=== PATIENT | female | born 1960 | race Caucasian/White ===

== ENCOUNTER → 2017-09-15 11:44 | Outpatient (CLI) | payer OTHER, SELFPAY ==
--- NOTE | 2017-09-15 11:49 | RAD_ITS ---
STUDY: X-RAY - RIGHT KNEE REASON FOR EXAM: Female, 56 years old. Psoriatic arthropathy TECHNIQUE: 4 weightbearing view(s) of the knee. COMPARISON: None. FINDINGS: Normal visualized distal femur. Normal visualized proximal tibia and fibula. Normal proximal tibiofibular articulation. Superior patellar osteophyte. Normal medial femorotibial compartment. Normal lateral femorotibial compartment. Normal patellofemoral articulation. There is a soft tissue prominence in the suprapatellar region suggesting a small volume joint effusion. The soft tissue structures are unremarkable. RAD/Knee 4 or More Views IMPRESSION: Degenerative arthrosis. Small suprapatellar joint effusion. No fracture or dislocation. Electronically Signed: Jason Ramirez DO at 23:23 EST , Service support ,
--- NOTE | 2017-09-15 11:49 | RAD_ITS ---
STUDY: X-RAY - LEFT KNEE REASON FOR EXAM: Female, 56 years old. Psoriatic arthropathy TECHNIQUE: 4 view(s) of the knee. COMPARISON: None. FINDINGS: Normal visualized distal femur. Normal visualized proximal tibia and fibula. Normal proximal tibiofibular articulation. Superior patellar osteophyte. There is mild degenerative arthrosis of the medial femorotibial compartment. There is mild degenerative arthrosis of the lateral femorotibial compartment. Normal patellofemoral articulation. The soft tissue structures are unremarkable. RAD/Knee 4 or More Views IMPRESSION: Degenerative arthrosis. No fracture or dislocation. Electronically Signed: Jason Ramirez DO at 23:23 EST , Service support ,
[2017-09-15 14:14] LABS: Absolute Lymphocyte Count 2.59 X10^3/ul (0.83-4.51); Basophil# 0.03 X10^3/uL; Basophil% 0.3 % (0-1); Eosinophil# 0.08 X10^3/uL; Eosinophils% 0.8 % (0-5); Hematocrit 39.8 % (37-47); Hemoglobin 12.3 g/dl (12.0-15.0); Lymphocyte # 2.59 X10^3/ul (4.0); Lymphocyte % 24.8 % (19-41); Mean Corp Hgb Conc 30.9 g/gl (32-36); Mean Corpuscular Hgb 27.1 pg (27.0-32.0); Mean Corpuscular Volume 87.7 fL (81-99); Mean Platelet Vol. 9.1 fl (6.2-12.0); Monocyte# 0.69 X10^3/uL; Monocyte% 6.6 % (0-10); Neutrophil # 7.04 X10^3/uL (2.7-7.7); Neutrophil % 67.3 % (47-70); Platelet Count 405 K/mm3 (150-450); Red Blood Count 4.54 M/mm3 (4.2-5.4); White Blood Count 10.5 K/mm3 (4.4-11.0)
[2017-09-15 14:20] LABS: POSITIVE COUNT NO; POSITIVE DIFFERENTIAL NO; POSITIVE MORPHOLOGY NO
[2017-09-15 14:34] LABS: ALB/GLOB Ratio 0.6 RATIO (0.9-2.4); AST(SGOT) 14 U/L (15-37); Alanine Aminotransfer ALT/SGPT 16 U/L (13-56); Albumin, Serum 3.4 g/dL (3.2-5.0); Alkaline Phosphatase 83 U/L (45-117); Anion Gap 9 (5-15); BUN 13 mg/dL (7-18); BUN/Creat Ratio 11.5 RATIO (10-20); Calcium,Total 9.3 mg/dL (8.5-10.1); Chloride 100 mmol/L (98-107); Creatinine, Serum 1.13 mg/dL (0.55-1.02); EST Glomerular Filtration Rate 53 mL/min (>60); Est Glom Filt Rate - Afr Amer 64 mL/min (>60); Globulin 5.6 g/dL (2.2-4.2); Glucose 142 mg/dL (74-106); Sodium Level 135 mmol/L (136-145)
== END ==
PROVIDERS: Family Provider Internal Medicine; PCP Internal Medicine; Visit Provider Internal Medicine Rheumatology
DX: L40.59 Other psoriatic arthropathy (principal); L40.9 Psoriasis, unspecified; K76.0 Fatty (change of) liver, not elsewhere classified; M50.30 Other cervical disc degeneration, unspecified cervical region; E11.9 Type 2 diabetes mellitus without complications; G43.909 Migraine, unspecified, not intractable, without status migrainosus; Z79.899 Other long term (current) drug therapy
CPT/HCPCS: 36415; 73564; 80053; 85025

== ENCOUNTER → 2017-09-25 12:39 | Outpatient (CLI) | payer OTHER, SELFPAY ==
[2017-09-25 12:46] LABS: Pathologist Comment May follow
[2017-09-25 13:07] LABS: RBC /Synovial Fluid 0.002 10^6/uL (0); Synovial Fld Mononuclear WBC % 35.6 %; Synovial Fld Polynuclear WBC # 8.142 10^3/ul; Synovial Fld Polynuclear WBC % 64.4 %
[2017-09-25 14:20] LABS: CRYSTALS, BODY FLUID CALCIUM PYROPHOS; Lymph 12 %; Monocyte /Synovial Fluid 3 %; Neutrophil 85 % (0-25)
[2017-09-25 14:21] LABS: AUTO B FLUID DILUENT BKGD CT WBC <0.1 RBC <0.01 (W<.1,R<.01); Source / Synovial Fluid R KNEE; Source- Body Fluid SYNOVIAL
[2017-09-25 14:22] LABS: Appearance /Synovial Fluid Cloudy (CLEAR); Body Fluid QC Type(s) BF1Q,BF2Q; Color / Synovial Fluid Yellow (Pale Yellow)
[2017-09-26 10:15] LABS: Pathologist Review Reviewed
== END ==
PROVIDERS: Family Provider Internal Medicine; PCP Internal Medicine; Visit Provider Internal Medicine Rheumatology
DX: L40.59 Other psoriatic arthropathy (principal); L40.9 Psoriasis, unspecified; M25.561 Pain in right knee; K46.0 Unspecified abdominal hernia with obstruction, without gangrene; M50.30 Other cervical disc degeneration, unspecified cervical region; E11.9 Type 2 diabetes mellitus without complications; G43.909 Migraine, unspecified, not intractable, without status migrainosus; Z79.899 Other long term (current) drug therapy
CPT/HCPCS: 87070; 87075; 87205; 89050; 89051; 89060

== ENCOUNTER → 2017-11-28 14:19 | Outpatient (CLI) | payer OTHER, SELFPAY ==
[2017-11-28 15:38] LABS: Absolute Lymphocyte Count 2.83 X10^3/ul (0.83-4.51); Absolute Neutrophil Count 3.3 X10^3/uL (2.0-7.7); Basophil# 0.03 X10^3/uL; Basophil% 0.4 % (0-1); Eosinophils% 1.4 % (0-5); Hematocrit 39.3 % (37-47); Hemoglobin 12.6 g/dl (12.0-15.0); Lymphocyte # 2.83 X10^3/ul (4.0); Mean Corp Hgb Conc 32.1 g/gl (32-36); Mean Corpuscular Hgb 28.7 pg (27.0-32.0); Mean Corpuscular Volume 89.5 fL (81-99); Mean Platelet Vol. 9.4 fl (6.2-12.0); Monocyte% 8.7 % (0-10); Neutrophil # 3.32 X10^3/uL (2.7-7.7); Neutrophil % 48.2 % (47-70); Platelet Count 291 K/mm3 (150-450); RBC Distribution Width CV 16.2 % (11.6-14.6); RBC Distribution Width SD 52.2 fl (35.1-43.9); Red Blood Count 4.39 M/mm3 (4.2-5.4); White Blood Count 6.9 K/mm3 (4.4-11.0)
[2017-11-28 15:51] LABS: POSITIVE COUNT NO; POSITIVE DIFFERENTIAL NO; POSITIVE MORPHOLOGY NO
[2017-11-28 15:54] LABS: ALB/GLOB Ratio 0.8 RATIO (0.9-2.4); AST(SGOT) 18 U/L (15-37); Alanine Aminotransfer ALT/SGPT 26 U/L (13-56); Albumin, Serum 3.5 g/dL (3.2-5.0); Alkaline Phosphatase 61 U/L (45-117); Anion Gap 9 (5-15); BUN 14 mg/dL (7-18); BUN/Creat Ratio 12.6 RATIO (10-20); Calcium,Total 9.1 mg/dL (8.5-10.1); Chloride 102 mmol/L (98-107); Creatinine, Serum 1.11 mg/dL (0.55-1.02); EST Glomerular Filtration Rate 54 mL/min (>60); Est Glom Filt Rate - Afr Amer 65 mL/min (>60); Globulin 4.4 g/dL (2.2-4.2); Glucose 263 mg/dL (74-106); Potassium 3.7 mmol/L (3.5-5.1); Protein, Total 7.9 g/dL (6.4-8.2); Sodium Level 140 mmol/L (136-145)
== END ==
PROVIDERS: Family Provider Internal Medicine; PCP Internal Medicine; Visit Provider Internal Medicine Rheumatology
DX: L40.59 Other psoriatic arthropathy (principal); L40.9 Psoriasis, unspecified; K76.0 Fatty (change of) liver, not elsewhere classified; M50.30 Other cervical disc degeneration, unspecified cervical region; E11.9 Type 2 diabetes mellitus without complications; G43.909 Migraine, unspecified, not intractable, without status migrainosus; Z79.899 Other long term (current) drug therapy
CPT/HCPCS: 36415; 80053; 85025

== ENCOUNTER 2018-02-21 17:52 | Emergency (ER) | payer OTHER, SELFPAY ==
[2018-02-21 17:52] VITALS: BP 192/116; PULSE 88; RESP 16; TEMP 37; O2SAT 99; BMI 29.0
--- NOTE | 2018-02-21 18:20 | CT_ITS ---
STUDY: CT BRAIN WITHOUT CONTRAST REASON FOR EXAM: Female, 57 years old. Headache. Hypertension. RADIATION DOSAGE (If Supplied By Facility): CTDIvol = ( 44.99 ) mGy, DLP = ( 779.24 ) mGycm TECHNIQUE: Transaxial CT imaging of the brain was performed without administration of intravenous contrast material. Individualized dose optimization techniques were used for this CT. COMPARISON: None. FINDINGS: There is no acute bleed or infarct. There are normal white matter tracts. The ventricles are normal in configuration. There is no hydrocephalus. The visualized paranasal sinuses are clear. The mastoid air cells are well aerated. There is no skull fracture. CT/Brain/Head without Contrast IMPRESSION: No acute intracranial abnormality. Electronically Signed: Levi Castellon, at 20:42 EDT Tel , Service support ,
[2018-02-21 18:21] LABS: Bedside Glucose 203 mg/dL (70-110)
--- NOTE | 2018-02-21 18:22 | ED.VISSUMM ---
- ER Visit Summary Date of Service: 02/21/18 Chief Complaint: Headache History of Present Illness: The patient is a 57 F history of prior migraine headaches also diet-controlled Beatties. Patient also has psoriatic arthritis. She is on no blood thinners. States she started getting a headache gradual onset today at noon progressively got worse around 3:00. Associated with nausea no vomiting. Denies any fever. No neck pain. No history of any recent falls or head trauma. She is on no blood thinners. States she gets migraines in the past has not had them very often at all in the last several years. States his headache is different. Is primarily frontal in her forehead. He does have light sensitivity. No visual change. No neurological symptoms. No speech change. No numbness or weakness either upper or lower extremities. She has never had any family history or personal history of intracranial bleeds or brain surgery. She has had prior cervical disc surgery. Physical Examination: Well-appearing middle-age female. Initial blood pressure 192/116. Afebrile. Pulse ox 9 9% on room air. She is seated in a darkened room. She is in no distress. H EENT exam atraumatic. Pupils round reactive light. No facial droop. Normal speech. No signs of trauma. Neck nontender no meningismus. Trachea midline. Able to touch chin to chest. Lungs clear to auscultation bilaterally. Heart regular rate and rhythm no murmur. Abdomen soft nontender. She is moving all 4 extremities. They are neurovascularly intact. Bilateral 5 out of 5 applications architect strength. Bilateral dorsi plantar flexion. Fingertip to nose heel oneill all within normal limits. Normal sensation. Back exam unremarkable. Neurologic exam normal. NIH is 0. No focal motor or sensory deficits. Test Results: CAT scan of the brain without contrast Emergency Department Course and Treatment: Patient treated with IV Toradol and Zofran. Treatment Plan: [] Disposition: [] Impression: Acute cephalgia Acute hypertension This note was generated with [employer] dictation software. It may contain incorrect words, spelling, and punctuation that were not noted in review of the chart prior to signing ED Disposition - Plan for ED Patient: Chief Complaint: Headache Referrals: Chanel Duarte DO [Primary Care Provider] -
[2018-02-21 18:53] LABS: Anion Gap 9 (5-15); BUN 15 mg/dL (7-18); BUN/Creat Ratio 13.9 RATIO (10-20); Calcium,Total 9.3 mg/dL (8.5-10.1); Chloride 104 mmol/L (98-107); Creatinine, Serum 1.08 mg/dL (0.55-1.02); EST Glomerular Filtration Rate 55 mL/min (>60); Est Glom Filt Rate - Afr Amer 67 mL/min (>60); Estimated Creatinine Clearance 55.22 ml/min; Glucose 203 mg/dL (74-106); Potassium 3.9 mmol/L (3.5-5.1); Sodium Level 142 mmol/L (136-145)
[2018-02-21] MEDS: Ketorolac 30 MG/ML Syringe IV (19:00)
[2018-02-21 19:14] VITALS: BP 178/107; PULSE 85; RESP 16; O2SAT 97
[2018-02-21] MEDS: Ondansetron 4 MG/2 ML Vial IV (19:21)
--- NOTE | 2018-02-21 19:44 | ED.DEP ---
ED Disposition - Plan for ED Patient: Disposition: Home or Assisted Living Chief Complaint: Headache Instructions: ED Cephalgia Unspecified Referrals: Chanel Duarte DO [Primary Care Provider] - 1-2 Weeks Additional Instructions: Log your blood pressures twice daily. Follow-up with Dr. Flores your primary care physician in the next 1-2 weeks and she can go over your blood pressure readings with you and decide if you need to be started on any occasion or not. Tylenol for headaches. Return if feeling a lot worse. Developed fever. Or worsening headache.
[2018-02-21 20:38] VITALS: BP 144/94; PULSE 84; RESP 18; O2SAT 97
[2018-02-21 20:53] VITALS: BP 144/94; PULSE 84; RESP 18; O2SAT 97
== END 2018-02-21 20:53 | disposition home or self-care (01) ==
PROVIDERS: Emergency Provider Emergency Medicine; Family Provider Internal Medicine; PCP Internal Medicine
DX: R51 Headache (principal); I10 Essential (primary) hypertension; L40.50 Arthropathic psoriasis, unspecified; Z79.891 Long term (current) use of opiate analgesic; Z79.899 Other long term (current) drug therapy
CPT/HCPCS: 70450; 80048; 82962; 96374; 96375; 99285; J7030; A4216

== ENCOUNTER → 2018-04-17 11:54 | Outpatient (CLI) | payer OTHER, SELFPAY ==
[2018-04-17 14:29] LABS: Absolute Lymphocyte Count 2.63 X10^3/ul (0.83-4.51); Absolute Neutrophil Count 3.1 X10^3/uL (2.0-7.7); Basophil# 0.02 X10^3/uL; Basophil% 0.3 % (0-1); Eosinophil# 0.18 X10^3/uL; Eosinophils% 2.8 % (0-5); Hematocrit 36.9 % (37-47); Lymphocyte # 2.63 X10^3/ul (4.0); Lymphocyte % 40.8 % (19-41); Mean Corp Hgb Conc 32.5 g/gl (32-36); Mean Corpuscular Volume 92.3 fL (81-99); Mean Platelet Vol. 9.7 fl (6.2-12.0); Monocyte% 7.8 % (0-10); Neutrophil # 3.11 X10^3/uL (2.7-7.7); Neutrophil % 48.1 % (47-70); POSITIVE COUNT NO; POSITIVE DIFFERENTIAL NO; POSITIVE MORPHOLOGY NO; Platelet Count 278 K/mm3 (150-450); RBC Distribution Width CV 12.6 % (11.6-14.6); RBC Distribution Width SD 40.9 fl (35.1-43.9); White Blood Count 6.5 K/mm3 (4.4-11.0)
[2018-04-17 14:45] LABS: Prothrombin Time (Protime)PT. 13.5 SECONDS (11.7-14.9)
[2018-04-17 14:47] LABS: ALB/GLOB Ratio 0.8 RATIO (0.9-2.4); AST(SGOT) 33 U/L (15-37); Alanine Aminotransfer ALT/SGPT 37 U/L (13-56); Albumin, Serum 3.5 g/dL (3.2-5.0); Alkaline Phosphatase 64 U/L (45-117); Anion Gap 9 (5-15); BUN 12 mg/dL (7-18); BUN/Creat Ratio 10.5 RATIO (10-20); Chloride 105 mmol/L (98-107); Creatinine, Serum 1.14 mg/dL (0.55-1.02); EST Glomerular Filtration Rate 52 mL/min (>60); Est Glom Filt Rate - Afr Amer 63 mL/min (>60); Globulin 4.3 g/dL (2.2-4.2); Glucose 153 mg/dL (74-106); Potassium 3.9 mmol/L (3.5-5.1); Protein, Total 7.8 g/dL (6.4-8.2); Sodium Level 141 mmol/L (136-145)
== END ==
PROVIDERS: Family Provider Internal Medicine; PCP Internal Medicine; Visit Provider Internal Medicine Rheumatology
DX: L40.59 Other psoriatic arthropathy (principal); L40.9 Psoriasis, unspecified; M25.561 Pain in right knee; K76.0 Fatty (change of) liver, not elsewhere classified; M50.30 Other cervical disc degeneration, unspecified cervical region; E11.9 Type 2 diabetes mellitus without complications; G43.909 Migraine, unspecified, not intractable, without status migrainosus; H11.31 Conjunctival hemorrhage, right eye; Z79.899 Other long term (current) drug therapy
CPT/HCPCS: 36415; 80053; 85025; 85610

== ENCOUNTER 2018-04-22 00:47 | Emergency (ER) | payer OTHER, SELFPAY ==
[2018-04-22 00:47] VITALS: BP 133/89; PULSE 106; RESP 16; TEMP 36.4; O2SAT 95; BMI 29.0
--- NOTE | 2018-04-22 01:03 | CT_ITS ---
STUDY: CT ABDOMEN AND PELVIS WITH CONTRAST REASON FOR EXAM: Female, 57 years old. Nausea vomiting and diarrhea RADIATION DOSAGE (If Supplied By Facility): CTDIvol = ( 19.09 ) mGy, DLP = ( 1119.92 ) mGycm TECHNIQUE: Transaxial images were obtained from the dome of the diaphragm to the symphysis pubis without oral contrast. 100ML ml of Isovue 300 contrast was administered. Sagittal and coronal images were reconstructed. Individualized dose optimization techniques were used for this CT. COMPARISON: None. FINDINGS: The lung bases are clear. The liver is normal. No dilated intrahepatic biliary radicles. A normal gallbladder is not seen. A small 1.4 cm cystic structures in the gallbladder fossa. The spleen is normal. The pancreas is normal. Both adrenals are normal. The kidneys are normal with no masses, calculi or hydronephrosis The stomach is normal. There is no bowel distention, acute appendicitis or diverticulitis. No constricting lesions are seen in large bowel. The abdominal wall is intact with no hernias. There is no ascites or any free intraperitoneal air. No indication of epiploic appendagitis The vascular structures in the retroperitoneum are normal. There is no retrocrural, retroperitoneal or mesenteric adenopathy. The bones and joints are normal. The urinary bladder is normal.--The uterus is normal.. There is no inguinal or pelvic adenopathy. There is no inguinal hernia. . CT/Abdomen/Pelvis W IV Cont ONLY IMPRESSION: No acute findings in the abdomen or pelvis. Specifically there is no acute appendicitis or diverticulitis Electronically Signed: David Giang, at 1:57 EDT Tel , Service support ,
[2018-04-22] MEDS: Morphine 4 MG/ML Syringe IV (01:07)
[2018-04-22] MEDS: 0.9% Normal Saline 1,000 ML 1000 ML IV (01:07)
[2018-04-22] MEDS: Ondansetron 4 MG/2 ML Vial IV (01:08)
[2018-04-22 01:15] LABS: Absolute Lymphocyte Count 2.33 X10^3/ul (0.83-4.51); Absolute Neutrophil Count 5.9 X10^3/uL (2.0-7.7); Basophil# 0.01 X10^3/uL; Basophil% 0.1 % (0-1); Eosinophil# 0.24 X10^3/uL; Eosinophils% 2.6 % (0-5); Hematocrit 45.1 % (37-47); Hemoglobin 15.3 g/dl (12.0-15.0); Lymphocyte # 2.33 X10^3/ul (4.0); Lymphocyte % 25.1 % (19-41); Mean Corp Hgb Conc 33.9 g/gl (32-36); Mean Corpuscular Hgb 30.9 pg (27.0-32.0); Mean Corpuscular Volume 91.1 fL (81-99); Mean Platelet Vol. 9.5 fl (6.2-12.0); Monocyte# 0.83 X10^3/uL; Monocyte% 8.9 % (0-10); Neutrophil # 5.87 X10^3/uL (2.7-7.7); Neutrophil % 63.1 % (47-70); POSITIVE COUNT NO; POSITIVE DIFFERENTIAL NO; POSITIVE MORPHOLOGY NO; Platelet Count 312 K/mm3 (150-450); RBC Distribution Width SD 42.8 fl (35.1-43.9); Red Blood Count 4.95 M/mm3 (4.2-5.4); White Blood Count 9.3 K/mm3 (4.4-11.0)
[2018-04-22 01:29] LABS: ALB/GLOB Ratio 0.8 RATIO (0.9-2.4); AST(SGOT) 24 U/L (15-37); Alanine Aminotransfer ALT/SGPT 29 U/L (13-56); Albumin, Serum 3.5 g/dL (3.2-5.0); Alkaline Phosphatase 73 U/L (45-117); Anion Gap 10 (5-15); BUN 15 mg/dL (7-18); BUN/Creat Ratio 11.8 RATIO (10-20); Calcium,Total 8.8 mg/dL (8.5-10.1); Chloride 104 mmol/L (98-107); Creatinine, Serum 1.27 mg/dL (0.55-1.02); EST Glomerular Filtration Rate 46 mL/min (>60); Est Glom Filt Rate - Afr Amer 56 mL/min (>60); Estimated Creatinine Clearance 46.95 ml/min; Globulin 4.6 g/dL (2.2-4.2); Glucose 214 mg/dL (74-106); Potassium 3.4 mmol/L (3.5-5.1); Protein, Total 8.1 g/dL (6.4-8.2); Sodium Level 138 mmol/L (136-145)
--- NOTE | 2018-04-22 01:36 | ED.VISSUMM ---
- ER Visit Summary Date of Service: 04/22/18 Chief Complaint: Nausea, vomiting, diarrhea History of Present Illness: The patient is a 57 F who is otherwise healthy presents to the emergency department nausea, vomiting, diarrhea. The patient symptoms began on Friday. States she had some diffuse abdominal cramping. She then had about 4 episodes of emesis. She states shortly after that, she began have loose watery diarrhea. There was no blood in the emesis or the diarrhea. She states symptoms seem to chery for about a day and then returned. States tonight, got markedly worse when she was having multiple bouts of loose watery diarrhea. Her did have C. difficile, but was 3 years ago. She denies any recent travel. She denies any recent antibiotic use. The patient does take Januvia for diabetes but is otherwise healthy. She has had prior appendectomy and cholecystectomy. Physical Examination: Vital signs reviewed General: Well-nourished, well-developed Head: Normocephalic, atraumatic Eyes: Pupils equal and reactive, extraocular muscles intact Neck, supple, no lymphadenopathy Heart: Regular rate and rhythm Respiratory: No distress, clear bilaterally Abdomen: Soft, mildly tender in the midepigastric area in the left upper quadrant without rebound or guarding, nondistended, no peritoneal signs Back: Nontender Extremities: Nontender, no edema, no cords Skin: Normal color no rash Neuro: Alert and oriented, no focal or lateralizing deficits Test Results: [] Emergency Department Course and Treatment: The patient presents with nausea, vomiting, diarrhea for the past 4 days. She has no history of C. difficile, but there was a prior history within her household. IV was established. She was treated with analgesics and antiemetics. She had total resolution of her pain but continued to have mild nausea. Nausea medication was redosed and she had marked improvement. Screening labs were obtained were unremarkable. I obtained a CT of her abdomen and pelvis with IV contrast. This also showed no evidence of acute intra-abdominal process. Patient was observed for 2 hours. We did obtain a C. difficile which is currently pending. Based on the fact that she has no colitis, no diarrhea here, and normal CT I do feel that C. difficile is less likely. However, given history I will prescribe oral vancomycin to the patient but told her not to fill this unless we call her and tell her that her C. difficile was positive. She will be started on antiemetics and antispasmodics. She will be discharged home return with any worsening symptoms. Treatment Plan: [] Disposition: Discharge Impression: Gastroenteritis This note was generated with [employer] dictation software. It may contain incorrect words, spelling, and punctuation that were not noted in review of the chart prior to signing ED Disposition - Plan for ED Patient: Disposition: Home or Assisted Living Chief Complaint: Nausea/Vomiting/Diarrhea Instructions: ED Gastroenteritis Viral Prescriptions: proMETHazine tablet [Phenergan] 25 mg PO Q6H PRN PRN #10 tab PRN Reason: Nausea Dicyclomine HCl [Bentyl] 20 mg PO TIDAC #20 cap Vancomcyin 125mg/5mL PO Liquid 125 mg PO Q6 #200 ml Referrals: Chanel Duarte DO [Primary Care Provider] -
[2018-04-22] MEDS: proMETHazine 25 MG/ML Syringe 12.5 MG IV (01:58)
[2018-04-22 02:47] VITALS: RESP 18
[2018-04-22] MEDS: Dicyclomine 10 MG Capsule 20 MG PO (03:17)
[2018-04-22] MEDS: Ondansetron ODT 4 MG Tablet 12 MG PO (03:18)
[2018-04-22 03:23] VITALS: BP 157/88; PULSE 94; RESP 17; O2SAT 96
== END 2018-04-22 03:24 | disposition home or self-care (01) ==
PROVIDERS: Emergency Provider Emergency Medicine; Family Provider Internal Medicine; PCP Internal Medicine
DX: K52.9 Noninfective gastroenteritis and colitis, unspecified (principal); E11.9 Type 2 diabetes mellitus without complications; I10 Essential (primary) hypertension; Z79.84 Long term (current) use of oral hypoglycemic drugs; Z79.899 Other long term (current) drug therapy
CPT/HCPCS: 74177; 80053; 85025; 87493; 87506; 96361; 96374; 96375; 99284; J7030; Q9967; A4216; J2405

== ENCOUNTER → 2018-09-01 09:35 | Outpatient (CLI) | payer OTHER, SELFPAY ==
--- NOTE | 2018-09-01 09:38 | BI_ITS ---
MAMMOGRAPHY - BILATERAL SCREENING REASON FOR EXAM: Female, 57 years old. Routine annual screening examination. PERTINENT HISTORY: Mother with breast cancer. TECHNIQUE: Digital bilateral breast emmanuel (3D mammographic acquisition) in the CC and MLO projections. 2-D mediolateral oblique (MLO) and craniocaudad (CC) views of both breasts were obtained. CAD: Full Field Digital Mammography with Computer Added Detection was performed. COMPARISON: Comparison is made with prior study dated July 28, 2017 and July 23, 2016 FINDINGS: Breast Composition: There are scattered areas of fibroglandular density. There are no dominant masses or suspicious calcifications. No other significant abnormalities are identified. There has been no significant change since the prior study. BI/SCREENING MAMM (CAD), BILAT IMPRESSION: Stable bilateral screening mammogram. Yearly follow-up mammogram recommended. (A) ASSESSMENT CATEGORY: BIRADS Category 1: Negative. A letter regarding these results will be sent to the patient by the facility within 30 days. Approximately 10% of breast cancers are not detected by mammography. A normal mammogram should not delay biopsy of a clinically suspicious abnormality. [id number] Electronically Signed: Jordy Masters MD at 11:17 EST Tel [phone], Service support ,
--- NOTE | 2018-09-01 09:38 | BD_ITS ---
STUDY: DUAL ENERGY X-RAY ABSORPTIOMETRY / DXA REASON FOR EXAM: Female, 57 years old. Early menopause. Loss of height. TECHNIQUE: Bone Mineral Density (BMD) measurements of lumbar spine and bilateral hips were obtained. COMPARISON: Comparison is made with prior study dated July 23, 2016. FINDINGS: Lumbar Spine (L1-L4): g/cm2 (1.234) / T-score (0.5) / Z-score (1.5) Findings are suggestive of normal bone density with a low fracture risk. Left Femur Total: g/cm2 (1.006) / T-score (0.0) / Z-score (0.8) Left Femoral Neck: g/cm2 (0.999) / T-score (-0.3) / Z-score (0.9) Right Femur Total: g/cm2 (0.935) / T-score (-0.6) / Z-score (0.3) Right Femoral Neck: g/cm2 (0.839) / T-score (-1.4) / Z-score (-0.3) The T-Scores on the most recent prior examination were: Lumbar Spine (L1-L4): There has been improvement of bone density since the previous examination. Left Femur Total: which represents an improvement of 2.4%. Right Femur Total: which represents an improvement of 1.6%. BD/Dexa Bone Density Study IMPRESSION: The patient is considered osteopenic as outlined below according to World [employer] Organization (WHO) criteria with a low fracture risk. There has been improvement of bone density since the previous examination. Reference Information: The T-score is the number of standard deviations above or below the standard which is normal for young adults at their peak bone mineral density. The World Health Organization (WHO) interprets the T-scores as follows: Above -1 Normal bone density Between -1 and -2.5 Osteopenia Equal to / or below -2.5 Osteoporosis As a practical clinical guideline, osteopenia may be graded as follows: Mild -1 through -1.5 Moderate -1.6 through -2.0 Severe -2.1 through -2.4 The Z-score is the number of standard deviations above or below age-matched controls. A Z-score of less than -1.5 would be considered abnormal. References: 1. NIH Osteoporosis and Related Bone Diseases http://www.osteo.org 2. International Society for Clinical Densitometry http://www.iscd.org 3. National Osteoporosis Foundation http://www.nof.org Electronically Signed: Jordy Masters MD at 11:22 EST Tel [phone], Service support ,
--- OUTSIDE RECORDS SUMMARY | 2018-11-03 10:50 | XMS RPT_ITS | Continuity of Care Document ---
:1960 Author Organization [facility] Address [facility] [address] Phone Care Team Providers Name Role Phone Chanel Varma DO Unavailable Alexis RDZ, Joey Gallegos Unavailable Physical Therapy, [facility] Unavailable Edin Cotter MD Unavailable Dr. Herve Plaza Unavailable JUANA Gomez Unavailable Unavailable Unavailable Unavailable Problems Name Dates Details Abdominal pain, acute, right upper quadrant (R10.11, 789.01) Status: Active ALLERGIC RHINITIS DUE TO OTHER ALLERGEN (J30.89, 477.8) Status: Active Appendectomy Comments: 1975 Status: Active BMI 27.0-27.9,adult (Z68.27, V85.23) Status: Active BMI 28.0-28.9,adult (Z68.28, V85.24) Status: Active BMI 29.0-29.9,adult (Z68.29, V85.25) Status: Active Breast cancer screening (Z12.39, V76.10) Status: Active Bronchitis (J40, 490) Status: Active Cervical radiculopathy at C7 (M54.12, 723.4) Status: Active Cervical radiculopathy at C8 (M54.12, 723.4) Comments: rev x-ray, failied nsaids and ultram and failed PT Status: Active Chronic pharyngitis (J31.2, 472.1) Comments: partly from chronic sinus drainage-- cont nasal spray - nad antistamine no decog Status: Active Cough (R05, 786.2) Status: Active Depression (F32.9, 311) Status: Active Diabetes mellitus type 2, uncontrolled, without complications (E11.65, 250.02) Comments: HAIC improving but still uncontrolled --7.0 (was 7.7)pt was holding off on more rx -- she chg her diet so we will see what next ones shows Status: Active Diabetes mellitus type II, controlled, with no complications (E11.9, 250.00) Status: Active Dysphagia (R13.10, 787.20) Status: Active Elevated serum globulin level (R77.1, 790.99) Status: Active Encounter for gynecological examination without abnormal finding (Z01.419, V72.31) Comments: 15n hpv neg adn no chg in sexual partner and no h/o of abn- pap Status: Active Encounter for screening mammogram for breast cancer (Renamed from Encounter for screening mammogram for malignant neoplasm of breast) (Z12.31, V76.12) Status: Active Epigastric Pain (R10.13, 789.06) Status: Active Fatty liver (K76.0, 571.8) Status: Active Flu-like symptoms (R68.89, 780.99) Status: Active Gastroenteritis (K52.9, 558.9) Status: Active GERD (gastroesophageal reflux disease) (K21.9, 530.81) Status: Active 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, 722.0) Comments: s/p surgery -- doing well Status: Active Hypercholesteremia (E78.00, 272.0) Comments: didnt tolerate crestor Status: Active Hypertension, essential, benign (I10, 401.1) Status: Active Immunocompromised (D84.9, 279.3) Status: Active Migraine (G43.909, 346.80) Status: Active Nausea (R11.0, 787.02) Comments: relived with antacid ever snice stomach flu --- gave samples of zypan to support digestion/acid to try Status: Active Need for prophylactic vaccination and inoculation against influenza (Z23, V04.81) Status: Active Nonsmoker (Z78.9, V49.89) Status: Active Non-traumatic subconjunctival hemorrhage of right eye (H11.31, 372.72) Status: Active Nutritional counseling (Z71.3, V65.3) Status: Active Osteopenia (M85.80, 733.90) Status: Active Other abnormal glucose (R73.09, 790.29) Status: Active Other noninflammatory disorders of ovary, fallopian tube, and broad ligament (Renamed from Other noninflammatory disorders of ovary, fallopian tube and broad ligament) (N83.8, 620.8) Status: Active Other specified viral infection, in conditions classified elsewhere and of unspecified site (B97.89, 079.89) Status: Active Pain in joint, multiple sites (M25.50, 719.49) Status: Active Papanicolaou smear of cervix with atypical squamous cells cannot exclude high grade squamous intraepithelial lesion (ASC-H) (Renamed from Abnormal Pap smear, can't excl hi gd sq intraepithelial lesion (ASC-H)) (R87.611, 795.02) Status: Active Pharyngitis, acute (J02.9, 462) Status: Active Pneumococcal vaccination given (Z23, V06.6) Status: Active Post-menopausal (Z78.0, V49.81) Comments: dexa up to date Status: Active Post-nasal drip (R09.82, 784.91) Comments: using antihistamine prn Status: Active Pregnancies () Comments: 0 Status: Active Psoriasis (L40.9, 696.1) Status: Active Psoriatic arthropathy (L40.50, 696.0) Status: Active Sinusitis, acute (J01.90, 461.9) Status: Active Unspecified Diagnosis Status: Active Unspecified Diagnosis Status: Active Unspecified Diagnosis Status: Active Unspecified Diagnosis Status: Active Upper respiratory infection (J06.9, 465.9) Status: Active Vitamin D deficiency, unspecified (E55.9, 268.9) Status: Active Voice disorder (R49.9, 784.40) Comments: damage from intubation? silent gerd? Status: Active Well woman exam (Z00.00, V70.0) Status: Active Wheezing (R06.2, 786.07) Status: Active Medications Name Dates Details Alendronate Sodium 70 MG Oral Tablet 1 (one) Tablet q weekly for 0 days Quantity: 12 {Tablet} Refills: 3 Ordered:04-Jun-2017 Spring Swartz CNP Start : 04-Jun-2017 Active Alendronate Sodium 70 MG Oral Tablet 1 (one) Tablet q weekly for 90 days Quantity: 3 {Tablet} Refills: 3 Ordered:04-Jun-2017 Spring Swartz CNP Start : 04-Jun-2017 Active Atenolol 25 MG Oral Tablet 1/2 (one) Tablet qd for 0 days Quantity: 30 {Tablet} Refills: 5 Ordered:29-Apr-2018 Marissa Gomez LPN Start : 29-Apr-2018 Active BD INSULIN SYRINGE ULTRAFINE, 29G X 1/21 ML (Miscellaneous) 1 Misc qd for 0 days Quantity: 1 {box(s)} Refills: 3 Ordered:14-Jun-2013 Marissa Gomez LPN Start : 14-Jun-2013 Active Cosentyx 300 Dose 150 MG/ML Subcutaneous Solution Prefilled Syringe 1 q mo (150 MG/ML) Active FreeStyle Lite Test In Vitro Strip 1 Strip TEST FBS Daily for 0 days Quantity: 100 {Strip} Refills: 6 Ordered:23-May-2016 Alena Varma DO, DO, Kathleen Start : 23-May-2016 Active Januvia 100 MG Oral Tablet 1 (one) Tablet qd for 0 days Quantity: 30 {Tablet} Refills: 3 Ordered:29-Apr-2018 Marissa Gomez LPN Start : 29-Apr-2018 Active MULTIVITAMIN (PO Tab) 1 QD for 0 days Refills: 0 Ordered:08-Jun-2009 Mil Calles NASONEX, 50MCG/ACT (Nasal Suspension) 2 (two) Suspension sprays each nostril daily for 0 days Quantity: 1 {Box} Refills: 3 Ordered:19-May-2014 Alena Varma DO, DO, Kathleen Start : 19-May-2014 Active Olux 0.05 % External Foam 1 (one) Foam qd prn per derm for 0 days Quantity: 1 {Each} Refills: 3 Ordered:02-Aug-2016 Alena Varma DO, DO, Kathleen Start : 02-Aug-2016 Active Ultram 50 MG Oral Tablet 1 tid (50 MG) Active ERROL-D 12 HOUR, 60-120MG (Oral Tablet Extended Release 12 Hour) 1 Tablet ER 12HR q12 hr for 0 days Quantity: 14 {Tablet_ER_12HR} Refills: 0 Ordered:21-Sep-2010 Marissa Gomez LPN Start : 14-Aug-2010 End : 21-Sep-2010 Inactive Biaxin 500 MG Oral Tablet 1 Tablet bid for 0 days Quantity: 20 {Tablet} Refills: 0 Ordered:23-Sep-2016 Marissa Gomez LPN Start : 06-Sep-2016 End : 23-Sep-2016 Inactive Biaxin XL Pac 500 MG Oral Tablet Extended Release 24 Hour 2 (two) Tablet ER 24HR Tablet ER 24HR daily for 10 days Quantity: 20 {Tablet} Refills: 0 Ordered:01-Nov-2016 Jessa Mcintyre LPN Start : 01-Nov-2016 End : 11-Nov-2016 Inactive Blood Glucose Test In Vitro Strip 1 (one) Strip bid for 0 days Quantity: 100 {Strip} Refills: 3 Ordered:20-May-2016 Rosalinda Rose LPN Start : 16-Oct-2015 End : 20-May-2016 Inactive Comments:ONE TOUCH ULTRA Cheratussin AC 100-10 MG/5ML Oral Syrup 5 Milliliter qhs prn for 0 days Quantity: 120 {Milliliter} Refills: 0 Ordered:25-Jun-2017 Marissa Gomez LPN Start : 04-Jun-2017 End : 25-Jun-2017 Inactive CHOLECALCIFEROL, 1000UNIT (Oral Capsule) Capsule for 0 days Refills: 0 Ordered:18-Apr-2009 Veronika Calles Start : 18-Apr-2009 End : 08-Jun-2009 Inactive CLODERM, 0.1% (External Cream) 2 daily (0.1 %) Inactive DEXILANT, 60MG (Oral Capsule Delayed Release) 1 (one) Capsule DR Capsule DR qd for 0 days Quantity: 30 {Capsule} Refills: 1 Ordered:16-Oct-2015 Marissa Gomez LPN Start : 27-Mar-2015 End : 16-Oct-2015 Inactive DIOVAN HCT, 160-25MG (Oral Tablet) 1/2 Tablet qd for 0 days Quantity: 30 {Tablet} Refills: 6 Ordered:23-Dec-2014 Marissa Gomez LPN Start : 13-Jun-2014 End : 23-Dec-2014 Inactive Comments:new dose FLONASE, 50MCG/ACT (Nasal Suspension) 2 (two) Puff(s) daily for 0 days Quantity: 1 {Suspension} Refills: 2 Ordered:31-Dec-2013 Marissa Gomez LPN Start : 12-Jan-2013 End : 31-Dec-2013 Inactive FOLIC ACID, 1MG (Oral Tablet) 1 tab Weekly for 0 days Refills: 0 Ordered:24-Jul-2011 Marissa Gomez LPN End : 24-Jul-2011 Inactive HUMIRA PEN, 40MG/0.8ML (Subcutaneous Kit) 1 qo week (40 MG/0.8ML) Inactive LEVAQUIN, 500MG (Oral Tablet) 1 Tablet qd for 0 days Quantity: 10 {Tablet} Refills: 0 Ordered:24-Jul-2011 Marissa Gomez LPN Start : 21-Sep-2010 End : 24-Jul-2011 Inactive METHOTREXATE, 2.5MG (Oral Tablet) 4 tabs Once a week for 0 days Refills: 0 Ordered:24-Jul-2011 Marissa Gomez LPN End : 24-Jul-2011 Inactive MOBIC, 15MG (Oral Tablet) 1 Tablet prn for 30 days Quantity: 1 {Tablet} Refills: 0 Ordered:18-May-2012 Alena Varma DO, DO, Kathleen Start : 18-May-2012 End : 17-Jun-2012 Inactive MYCELEX, 10MG (Mouth/Throat Betzaida) 1 (one) Betzaida 5 times daily for 10 days Quantity: 50 {Betzaida} Refills: 0 Ordered:28-Dec-2008 Veronika Calles Start : 28-Dec-2008 End : 09-Jan-2009 Inactive NUCYNTA ER, 50MG (Oral Tablet Extended Release 12 Hour) 1 (one) Tablet ER 12HR bid prn for 0 days Quantity: 30 {Tablet} Refills: 0 Ordered:08-Dec-2015 Marissa Gomez LPN Start : 06-Nov-2015 End : 08-Dec-2015 Inactive Comments:thirty OMEPRAZOLE, 40MG (Oral Capsule Delayed Release) 1 (one) Capsule DR Capsule DR qd for 30 days Quantity: 30 {Capsule} Refills: 3 Ordered:20-Jul-2014 Jessa Mcintyre LPN Start : 31-Dec-2013 End : 20-Jul-2014 Inactive PredniSONE 10 MG Oral Tablet 1 (one) Tablet 1bid x3 days, 1 daily x 3 days, 1/2 daily x 3 days for 0 days Quantity: 12 {Tablet} Refills: 0 Ordered:25-Jun-2017 Marissa Gomez LPN Start : 04-Jun-2017 End : 25-Jun-2017 Inactive Comments:with food PREDNISONE, 20MG (Oral Tablet) tad Tablet uad for 0 days Refills: 0 Ordered:20-Feb-2012 Marissa Gomez LPN Start : 30-Oct-2011 End : 20-Feb-2012 Inactive Comments:1 tab bid for 3 days then 1 tab daily for 4 days then 1/2 tab daily for 4 days Promethazine HCl 25 MG Oral Tablet 1 (one) Tablet q6hr prn nausea for 0 days Quantity: 30 {Tablet} Refills: 0 Ordered:20-May-2016 Rosalinda Rose LPN Start : 15-Mar-2016 End : 20-May-2016 Inactive PROVENTIL HFA, 108 (90 Base)MCG/ACT (Inhalation Aerosol Solution) 2 (two) Puff(s) bid prn for 0 days Quantity: 1 {Aerosol_Soln} Refills: 0 Ordered:14-Aug-2010 Shakila Gonzalez LPN Start : 14-May-2010 End : 14-Aug-2010 Inactive Talclonex Scalp at night prn Inactive Comments:prescribed by derm Zithromax Z-Devendra 250 MG Oral Tablet 1 Tablet uad for 0 days Quantity: 1 {Package} Refills: 0 Ordered:25-Jun-2017 Marissa Gomez LPN Start : 04-Jun-2017 End : 25-Jun-2017 Inactive Crestor 10 MG Oral Tablet 1 (one) Tablet qd for 30 days Quantity: 30 {Tablet} Refills: 3 Ordered:14-Jan-2018 Radha Partida Start : 15-Oct-2017 End : 14-Jan-2018 Discontinued Comments:do labs in 2 mo Enbrel 50 MG/ML Subcutaneous Solution Prefilled Syringe 1 q 2 weeks (50 MG/ML) End : 06-Nov-2016 Discontinued ERGOCALCIFEROL, 13712TKBG (Oral Capsule) 1 (one) Capsule twice weekly for 0 days Quantity: 8 {Capsule} Refills: 2 Ordered:18-Apr-2009 Spring Swartz CNP Start : 18-Apr-2009 End : 18-Apr-2009 Discontinued Glucose Control In Vitro Solution 1 (one) Solution uad for 0 days Quantity: 1 {Solution} Refills: 3 Ordered:01-Nov-2016 Jessa Mcintyre LPN Start : 14-Aug-2011 End : 01-Nov-2016 Discontinued Comments:ONE TOUCH ULTRA METANX, 2.8-25-2MG (Oral Tablet) 1 (one) Tablet daily for 0 days Quantity: 90 {Tablet} Refills: 2 Ordered:18-Jan-2010 Renée Lim RN Start : 18-Jan-2010 End : 18-Jan-2010 Discontinued METFORMIN HCL, 500MG (Oral Tablet) 1 (one) Tablet qd for 0 days Quantity: 60 {Tablet} Refills: 3 Ordered:16-Sep-2013 Alena Varma DO, DO, Kathleen Start : 16-Sep-2013 End : 16-Sep-2013 Discontinued Comments:nausea MULTIVITAMIN (Oral Liquid) for 0 days Refills: 0 Ordered:04-Jan-2009 Veronika Calles End : 28-Dec-2008 Discontinued OMNARIS, 50MCG/ACT (Nasal Suspension) 2 (two) Suspension qd for 0 days Quantity: 1 {Suspension} Refills: 0 Ordered:18-Jan-2010 Renée Lim RN Start : 18-Jan-2010 End : 18-Jan-2010 Discontinued PHENERGAN, 25MG (Oral Tablet) 1 (one) Tablet q6h prn nausea for 0 days Quantity: 20 {Tablet} Refills: 0 Ordered:28-Dec-2008 Marissa Gomez LPN Start : 28-Dec-2008 End : 24-Jul-2011 Discontinued Comments:This order discontinued per [facility]. ProAir HFA 108 (90 Base) MCG/ACT Inhalation Aerosol Solution 2 (two) Puff tid for 0 days Quantity: 1 {Inhaler} Refills: 0 Ordered:14-Jan-2018 Radha Partida Start : 04-Jun-2017 End : 14-Jan-2018 Discontinued TOPICORT, 0.25% (External Cream) 1 Cream bid for 0 days Quantity: 1 {Cream} Refills: 0 Ordered:18-Jan-2010 Renée Lim RN Start : 18-Jan-2010 End : 18-Jan-2010 Discontinued Comments:order clarified to be 60gm tube-Aw TUMS 500, 1250MG (Oral Tablet Chewable) Occasionally (1250 MG) End : 28-Dec-2008 Discontinued TYLENOL 8 HOUR, 650MG (Oral Tablet Extended Release) Occasionally (650 MG) End : 28-Dec-2008 Discontinued VICTOZA, 18MG/3ML (Subcutaneous Solution Pen-injector) 1.8 Solution qd sc for 0 days Quantity: 3 {Bag} Refills: 3 Ordered:31-Dec-2013 Alena Varma DO, DO, Kathleen Start : 31-Dec-2013 End : 31-Dec-2013 Discontinued Comments:nausea VITAMIN C, 100MG (Oral Tablet Chewable) for 0 days Refills: 0 Ordered:04-Jan-2009 Veronika Calles End : 28-Dec-2008 Discontinued VITAMIN D, 32982XTVE (Oral Capsule) 1 Weekly for 0 days Refills: 0 Ordered:28-Jan-2014 Marissa Gomez LPN Start : 28-Jan-2014 End : 23-Dec-2014 Discontinued Comments:This order discontinued per [facility]. Vitamin D3 67028 UNIT Oral Capsule 1 (one) Capsule Capsule twice a week for 0 days Quantity: 8 {Capsule} Refills: 7 Ordered:14-Jan-2018 Radha Partida Start : 22-Jul-2016 End : 14-Jan-2018 Discontinued Allergies and Adverse Reactions Name Dates Details Amoxicillin *PENICILLINS* (Allergy) Status: Active Comments: rash No Known Drug Allergies (Allergy) Onset: 18-Jun-2013 Status: Inactive Sulfa Drugs (Allergy) Status: Active Comments: Diarrhea, Rash Past Medical History Name Dates Details Abdominal pain (R10.9, 789.00) Comments: mild Status: Inactive as of 16-Oct-2015 Abdominal pain, acute, generalized (R10.84, 789.07) Status: Resolved as of 29-Dec-2008 Abnormal blood chemistry (R79.9, 790.6) Comments: elevated liver fcn Status: Inactive as of 30-Dec-2016 Acute intractable headache, unspecified headache type (R51, 784.0) Status: Resolved as of 27-Feb-2018 Arm pain, medial, left (M79.602, 729.5) Comments: takes tramadol up to 3/day and on humira q8 days followed by Peter Status: Inactive as of 08-Dec-2015 Blood in stool (K92.1, 578.1) Status: Resolved as of 28-May-2010 BMI 28.0-28.9,adult (Z68.28, V85.24) Status: Inactive as of 04-Jun-2017 BMI 29.0-29.9,adult (Z68.29, V85.25) Status: Inactive as of 04-Jun-2017 Body aches (R52, 780.96) Status: Inactive as of 14-Jun-2013 Body mass index (BMI) of 30.0-30.9 in adult (Z68.30, V85.30) Status: Inactive as of 04-Jun-2017 Candidiasis of mouth (B37.0, 112.0) Status: Inactive as of 14-Jun-2013 Chest tightness (R07.89, 786.59) Status: Resolved as of 28-Nov-2016 Contact dermatitis and other eczema due to plants (except food) (L25.5, 692.6) Status: Inactive as of 14-Jun-2013 Cough (R05, 786.2) Status: Resolved as of 13-Oct-2017 Dehydration (E86.0, 276.51) Status: Inactive as of 14-Jun-2013 Diarrhea (R19.7, 787.91) Comments: some dehydrated. BRAT diet. slowing down Status: Inactive as of 14-Jun-2013 DISEASES OF ESOPHAGUS, DYSKINESIA OF ESOPHAGUS (530.5) Status: Inactive as of 04-Jun-2017 Elevated blood-pressure reading without diagnosis of hypertension (R03.0, 796.2) Status: Resolved as of 13-Oct-2017 Elevated LFTs (R94.5, 790.6) Status: Inactive as of 28-Aug-2009 Flu-like symptoms (R68.89, 780.99) Status: Resolved as of 21-Oct-2016 Headache (R51, 784.0) Status: Inactive as of 30-Dec-2016 Headache (R51, 784.0) Status: Inactive as of 30-Dec-2016 Knee pain (M25.569, 719.46) Status: Inactive as of 14-Jun-2013 Malaise and fatigue (R53.81, 780.79) Comments: with emotional stressors and now pain in [place] - will offer adrenal support with adrenal-C ( doenst not want tonic) , sym F and will add nevaton when comes in Status: Inactive as of 30-Dec-2016 Nausea (R11.0, 787.02) Status: Resolved as of 21-Oct-2016 Nausea & vomiting (R11.2, 787.01) Status: Resolved as of 29-Dec-2008 Pain in shoulder region, left (M25.512, 719.41) Status: Inactive as of 30-Dec-2016 Pre-op evaluation (Z01.818, V72.84) Comments: requested by Dr Edin Cotter- Status: Inactive as of 30-Dec-2016 Rash (R21, 782.1) Comments: itchy like contact-- vs ? but shouldnt itch wiht that ?? Status: Inactive as of 14-Jun-2013 Rectal bleed (K62.5, 569.3) Comments: divertic? inflamm bowel disease of some sort? mass? Status: Inactive as of 08-Dec-2015 Redness of eye, right (H57.8, 379.93) Status: Resolved as of 13-May-2018 Screening for HPV (human papillomavirus) (Renamed from Encounter for screening for human papillomavirus (HPV)) (Z11.51, V73.81) Status: Inactive as of 30-Dec-2016 Sinus congestion (R09.81, 478.19) Comments: appears viral -- watch -- rto if sx get worse or chg Status: Inactive as of 14-Jun-2013 Sinusitis (J32.9, 473.9) Status: Inactive as of 30-Dec-2016 Procedures Procedure Dates Details PNEUM VAC ADLT/IMUMNOSPR, SBC/INTRM Date: 02-Aug-2016 Completed 02-Aug-2016 (41983) Comments: lot: [id number]: 01/25/2018site/route: L del/IMamt: 0.5mLVIS signed when applicableChelsea, PREVENTION RN cervical spin herniated disc Completed Comments: 11/13/15 - Dr Edin Cotter - [facility] Cholecystectomy Completed Comments: 07/22 Date Value Details 22-Apr-2018 Emergency Department Summary Result: Comments: See Note; NOTES: [facility] Medical Records Department [address] [place] [address] Emergency Department Summary 04/22/18 0136 MR#: [id number] Acct: [id number] Name: LEATHA ABAD Rep #: [id number] : 1960 57 From: Edin Haddad MD PCP: Chanel Varma DO Status: DEP ER - ER Visit Summary Date of Service: 04/22/18 Chief Complaint: Nausea, vomiting, diarrhea History of Present Illness: The patient is a 57 F who is otherwise healthy presents to the emergency department nausea, vomiting, diarrhea. The patient symptoms began on Friday. States she had some diffuse abdominal cramping. She then had about 4 episodes of emesis. She states shortly after that, she began have loose watery diarrhea. There was no blood in the emesis or the diarrhea. She s tates symptoms seem to chery for about a day and then returned. States tonight, got markedly worse when she was having multiple bouts of loose watery diarrhea. Her did have C. difficile, but was 3 years ago. She denies any recent travel. She denies any recent antibiotic use. The patient does take Januvia for diabetes but is otherwise healthy. She has had prior appendectomy and cholecystectomy. Physical Examination: Vital signs reviewed General: Well-nourished, well-developed Head: Normocephalic, atraumatic Eyes: Pupils equal and reactive, extraocular muscles intact Neck, supple, no lymphade nopathy Heart: Regular rate and rhythm Respiratory: No distress, clear bilaterally Abdomen: Soft, mildly tender in the midepigastric area in the left upper quadrant without rebound or guarding, nondiste nded, no peritoneal signs Back: Nontender Extremities: Nontender, no edema, no cords Skin: Normal color no rash Neuro: Alert and oriented, no focal or lateralizing deficits Test Results: [] Emergency Department Course and Treatment: The patient presents with nausea, vomiting, diarrhea for the past 4 days. She has no history of C. difficile, but there was a prior history within her household. IV was established. She was treated with analgesics and antiemetics. She had total resolution of her pain but continued to have mild nausea. Nausea medication was redosed and she had marked improvement. Screen ing labs were obtained were unremarkable. I obtained a CT of her abdomen and pelvis with IV contrast. This also showed no evidence of acute intra-abdominal process. Patient was observed for 2 hours. We did obtain a C. difficile which is currently pending. Based on the fact that she has no colitis, no diarrhea here, and normal CT I do feel that C. difficile is less likely. However, given history I will prescribe oral vancomycin to the patient but told her not to fill this unless we call her and tell her that her C. difficile was positive. She will be started on antiemetics and antispasmodics. She lilia l be discharged home return with any worsening symptoms. Treatment Plan: [] Disposition: Discharge Impression: Gastroenteritis This note was generated with [employer] dictation software. It may contai n incorrect words, spelling, and punctuation that were not noted in review of the chart prior to signing ED Disposition - Plan for ED Patient: Disposition: Home or Assisted Living Chief Complaint: Na usea/Vomiting/Diarrhea Instructions: ED Gastroenteritis Viral Prescriptions: proMETHazine tablet [Phenergan] 25 mg PO Q6H PRN PRN #10 tab PRN Reason: Nausea Dicyclomine HCl [Bentyl] 20 mg PO TIDAC #20 c ap Vancomcyin 125mg/5mL PO Liquid 125 mg PO Q6 #200 ml Referrals: Chanel Varma, DO [Primary Care Provider] - What to do if you have Problems For any increased pain, shortness of breath, bleeding, nausea or vomiting, chest pain, or any unexpected problems, contact your Primary Care Provider. Call [facility] ([phone]) or report to the closest Emergency Room. Call 911 if necessary. [phone] <Electronically signed by Edin Haddad MD> Date Edin Haddad MD Cosigner Signature (If Indicated): Date _ CC: Chanel Varma DO 22-Apr-2018 Abdomen/Pelvis W IV Cont ONLY Result: Comments: See Note; NOTES: [facility] Imaging Services [address] [place] [id number] Abdomen/Pelvis W IV Cont ONLY MR#: [id number] Acct: [id number] Name: LEATHA ABAD ep #: [id number] : 1960 F 57 From: David Giang MD PCP: Chanel Varma DO Status: REG ER Study: Abdomen/Pelvis W IV Cont ONLY Date of Exam: 04/22/18 Exam# [id number] Ordering Dr: Edin Madrigal MD STUDY: CT ABDOMEN AND PELVIS WITH CONTRAST REASON FOR EXAM: Female, 57 years old. Nausea vomiting and diarrhea RADIATION DOSAGE (If Supplied By Facility): CTDIvol = ( 19.09 ) mGy, DLP = ( 1119.92 ) mGycm TECHNIQUE: Transaxial images were obtained from the dome of the diaphragm to the symphysis pubis without oral contrast. 100ML ml of Isovue 300 contrast was administered. Sagittal a nd coronal images were reconstructed. Individualized dose optimization techniques were used for this CT. COMPARISON: None. FINDINGS: The lung bases are clear. The liver is normal. No dilated intrahepatic biliary radicles. A normal gallbladder is not seen. A small 1.4 cm cystic structures in the gallbladder fossa. The spleen is normal. The pancreas is normal. Tejinder th adrenals are normal. The kidneys are normal with no masses, calculi or hydronephrosis The stomach is normal. There is no bowel distention, acute appendicitis or diverticulitis. No constricting lesi ons are seen in large bowel. The abdominal wall is intact with no hernias. There is no ascites or any free intraperitoneal air. No indication of epiploic appendagitis The vascular structures in the re troperitoneum are normal. There is no retrocrural, retroperitoneal or mesenteric adenopathy. The bones and joints are normal. The urinary bladder is normal.--The uterus is normal.. There is no inguin al or pelvic adenopathy. There is no inguinal hernia. . CT/Abdomen/Pelvis W IV Cont ONLY IMPRESSION: No acute findings in the abdomen or pelvis. Specifically there is no acute appendicitis or diverticulitis Electronically Signed: David Giang, at 1:57 EDT Tel , Service support , CC: Chanel Varma DO; Edin Haddad MD Consulting Group Analyst: Signed 21-Feb-2018 Discharge Instruction Result: Comments: See Note; NOTES: [facility] Medical Records Department [address] [place] [address] Discharge Instruction 02/21/18 1944 MR#: [id number] Acct: [id number] Name: LEATHA GALARZA Rep #: [id number] : 1960 57 From: Catalino Murguia MD PCP: Chanel Varma DO Status: DEP ER ED Disposition - Plan for ED Patient: Disposition: Home or Assisted Living Chief Compl aint: Headache Instructions: ED Cephalgia Unspecified Referrals: Chanel Varma DO [Primary Care Provider] - 1-2 Weeks Additional Instructions: Log your blood pressures twice daily. Follow-up with Dr. Flores your primary care physician in the next 1-2 weeks and she can go over your blood pressure readings with you and decide if you need to be started on any occasion or not. Tylenol for headaches. R eturn if feeling a lot worse. Developed fever. Or worsening headache. What to do if you have Problems For any increased pain, shortness of breath, bleeding, nausea or vomiting, chest pain, or any un expected problems, contact your Primary Care Provider. Call [facility] ([phone]) or report to the closest Emergency Room. Call 911 if necessary. 02/21/18 1836 <Electronically signed by Catalino Murguia MD> Date Catalino Murguia MD Cosigner Signature (If Indicated): Date CC: Chanel Varma DO 21-Feb-2018 Emergency Department Summary Result: Comments: See Note; NOTES: [facility] Medical Records Department [address] [place] [address] Emergency Department Summary 02/21/18 1822 MR#: [id number] Acct: [id number] Name: LEATHA ABAD Rep #: [id number] : 1960 57 From: Catalino Murguia MD PCP: Chanel Varma DO Status: DEP ER - ER Visit Summary Date of Service: 02/21/18 Chief Complaint: Headache History of Present Illness: The patient is a 57 F history of prior migraine headaches also diet-controlled Beatties. Patient also has psoriatic arthritis. She is on no blood thinners. States she started gettin g a headache gradual onset today at noon progressively got worse around 3:00. Associated with nausea no vomiting. Denies any fever. No neck pain. No history of any recent falls or head trauma. She is on no blood thinners. States she gets migraines in the past has not had them very often at all in the last several years. States his headache is different. Is primarily frontal in her forehead. He does herndon ve light sensitivity. No visual change. No neurological symptoms. No speech change. No numbness or weakness either upper or lower extremities. She has never had any family history or personal history of intracranial bleeds or brain surgery. She has had prior cervical disc surgery. Physical Examination: Well-appearing middle-age female. Initial blood pressure 192/116. Afebrile. Pulse ox 9 9% on room a ir. She is seated in a darkened room. She is in no distress. H EENT exam atraumatic. Pupils round reactive light. No facial droop. Normal speech. No signs of trauma. Neck nontender no meningismus. Trach ea midline. Able to touch chin to chest. Lungs clear to auscultation bilaterally. Heart regular rate and rhythm no murmur. Abdomen soft nontender. She is moving all 4 extremities. They are neurovascular ly intact. Bilateral 5 out of 5 riveter hand strength. Bilateral dorsi plantar flexion. Fingertip to nose heel oneill all within normal limits. Normal sensation. Back exam unremarkable. Neurologic exam normal. NI H is 0. No focal motor or sensory deficits. Test Results: CAT scan of the brain without contrast Emergency Department Course and Treatment: Patient treated with IV Toradol and Zofran. Treatment Plan: [] Disposition: [] Impression: Acute cephalgia Acute hypertension This note was generated with [employer] dictation software. It may contain incorrect words, spelling, and punctuation that were not no natasha in review of the chart prior to signing ED Disposition - Plan for ED Patient: Chief Complaint: Headache Referrals: Chanel Varma DO [Primary Care Provider] - What to do if you have Problems For any increased pain, shortness of breath, bleeding, nausea or vomiting, chest pain, or any unexpected problems, contact your Primary Care Provider. Call [facility] ([phone]) or report to the closest Emergency Room. Call 911 if necessary. 02/21/18 6280 <Electronically signed by Catalino Murguia MD> Date Catalino Murguia MD Cosigner Signature (If Indicated): Date CC: Chanel Varma DO 21-Feb-2018 Brain/Head without Contrast Result: Comments: See Note; NOTES: [facility] Imaging Services [address] [place] [address] Brain/Head without Contrast MR#: [id number] Acct: [id number] Name: LEATHA ABAD Rep #: [id number] : 1960 F 57 From: Levi Castellon MD PCP: Chanel Varma DO Status: [facility] ER Study: Brain/Head without Contrast Date of Exam: 02/21/18 Exam# [id number] Ordering Dr: Catalino Murguia MD STUDY: CT BRAIN WITHOUT CONTRAST REASON FOR EXAM: Female, 57 years old. Headache. Hypertension. RADIATION DOSAGE (If Supplied By Facility): CTDIvol = ( 44.99 ) mGy, DLP = ( 779.24 ) mGycm TECHNI QUE: Transaxial CT imaging of the brain was performed without administration of intravenous contrast material. Individualized dose optimization techniques were used for this CT. COMPARISON: None. ____ FINDINGS: There is no acute bleed or infarct. There are normal white matter tracts. The ventricles are normal in configuration. There is no hydrocephalus. The visuali zed paranasal sinuses are clear. The mastoid air cells are well aerated. There is no skull fracture. CT/Brain/Head without Contrast IMPRESSION: No acute intracranial abnormality. Electronically Signed: Levi Castellon, at 20:42 EDT Tel , Service support , CC: Catalino Murguia MD; Chanel Varma DO Consulting Group Analyst: Signed 15-Sep-2017 Knee 4 or More Views Result: Comments: See Note; NOTES: [facility] Imaging Services [address] [place] [address] Knee 4 or More Views MR#: [id number] Acct: [id number] Name: LEATHA ABAD Rep #: [id number] : 1960 F 56 From: Jason Ramirez PCP: Chanel Varma DO Status: REG CLI Study: Knee 4 or More Views Date of Exam: 09/15/17 Exam# [id number] Ordering Dr: Jo Hutchison MD STUDY: X-RAY - R IGHT KNEE REASON FOR EXAM: Female, 56 years old. Psoriatic arthropathy TECHNIQUE: 4 weightbearing view(s) of the knee. COMPARISON: None. FINDINGS: Normal visualiz ed distal femur. Normal visualized proximal tibia and fibula. Normal proximal tibiofibular articulation. Superior patellar osteophyte. Normal medial femorotibial compartment. Normal lateral femorotibia l compartment. Normal patellofemoral articulation. There is a soft tissue prominence in the suprapatellar region suggesting a small volume joint effusion. The soft tissue structures are unremarkable. _ RAD/Knee 4 or More Views IMPRESSION: Degenerative arthrosis. Small suprapatellar joint effusion. No fracture or dislocation. Electronically Aisha d: Jason Ramirez DO at 23:23 EST , Service support , CC: Chanel Varma DO; Jo Hutchison MD Consulting Group Analyst: Signed 15-Sep-2017 Knee 4 or More Views Result: Comments: See Note; NOTES: [facility] Imaging Services [address] [place] [address] Knee 4 or More Views MR#: [id number] Acct: [id number] Name: JENNIFFERLEATHA Benita Rep #: [id number] : 1960 F 56 From: Jason Ramirez PCP: Chanel Varma DO Status: REG CLI Study: Knee 4 or More Views Date of Exam: 09/15/17 Exam# [id number] Ordering Dr: oJ Hutchison MD STUDY: X-RAY - L EFT KNEE REASON FOR EXAM: Female, 56 years old. Psoriatic arthropathy TECHNIQUE: 4 view(s) of the knee. COMPARISON: None. FINDINGS: Normal visualized distal femur . Normal visualized proximal tibia and fibula. Normal proximal tibiofibular articulation. Superior patellar osteophyte. There is mild degenerative arthrosis of the medial femorotibial compartment. Ther e is mild degenerative arthrosis of the lateral femorotibial compartment. Normal patellofemoral articulation. The soft tissue structures are unremarkable. RAD/Knee 4 or More Views IMPRESSION: Degenerative arthrosis. No fracture or dislocation. Electronically Signed: Jason James at 23:23 EST , Service support , CC: Chanel Varma DO; Jo Hutchison MD Consulting Group Analyst: Signed 28-Jul-2017 SCREENING MAMM (CAD), BILAT Result: Comments: See Note; NOTES: [facility] Imaging Services [address] [place] [address] SCREENING MAMM (CAD), BILAT MR#: [id number] Acct: [id number] Name: LEATHA ABAD Rep #: [id number] : 1960 F 56 From: Jordy Msaters MD PCP: Chanel Varma DO Status: REG CLI Study: SCREENING MAMM (CAD), BILAT Date of Exam: 07/28/17 Exam# [id number] Ordering Dr: Janel Varma DO MAMMOGRAPHY - BILATERAL SCREENING REASON FOR EXAM: Female, 56 years old. Routine annual screening examination. PERTINENT HISTORY: Mother with breast cancer. TECHNIQUE: Digital bilateral br east emmanuel (3D mammographic acquisition) in the CC and MLO projections. 2-D mediolateral oblique (MLO) and craniocaudad (CC) views of both breasts were obtained. CAD: Full Field Digital Mammography with Computer Added Detection was performed. COMPARISON: Comparison is made with prior examination dated July 23, 2016 and April 26, 2015. FINDINGS: Breast Mesita sition: There are scattered areas of fibroglandular density. There are no dominant masses or suspicious calcifications. No other significant abnormalities are identified. There has been no significant change since the prior study. HPBI/SCREENING MAMM (CAD), BILAT IMPRESSION: Stable bilateral screening mammogram. Yearly follow-up mammogram libby mmended. (A) ASSESSMENT CATEGORY: BIRADS Category 1: Negative. A letter regarding these results will be sent to the patient by the facility within 30 days. Approxi mately 10% of breast cancers are not detected by mammography. A normal mammogram should not delay biopsy of a clinically suspicious abnormality. [id number] Electronically Signed: Jordy Masters MD 27/07/19 at 8:04 EST Tel [phone], Service support , CC: Chanel Varma DO Consulting Group Analyst: Signed 06-Nov-2016 Chest PA and Lateral Result: Comments: See Note; NOTES: [facility] Imaging Services [address] [place] [address] Verdana 4d Chest PA and Lateral MR#: [id number] Acct: [id number] Name: JENNIFFERLEATHA G Rep #: [id number] : 1960 F 55 From: Jordy Masters MD PCP: Chanel Varma DO Status: REG CLI Study: Chest PA and Lateral Date of Exam: 11/06/16 Exam# [id number] Ordering Dr: Spring Swartz STUDY: X-RAY CHEST REASON FOR EXAM: Female, 55 years old. Chest tightness. TECHNIQUE: PA and lateral views of the chest. COMPARISON: None. FINDINGS: Hyperinflati on. Scattered calcified granulomas. There is no demonstrated pleural abnormality. Normal size heart. Normal mediastinum and gabriela. Normal visualized pulmonary arteries. There is atherosclerotic tortuosi ty of the aortic arch and descending thoracic aorta. There are diffuse degenerative changes of the visualized thoracic spine. Mild dextroscoliosis. Prior fusion of the lower cervical spine. Normal visu alized ribs, clavicles, and shoulders. There is no demonstrated abnormality of the visualized soft tissue structures of the upper abdomen. RAD/C hest PA and Lateral IMPRESSION: Hyperinflation. No acute abnormality is seen. Electronically Signed: Jordy Masters MD at 15:52 EDT Tel [phone], Service support [phone], Fax CC: Spring Swartz; Chanel Varma DO Consulting Group Analyst: Signed 23-Jul-2016 Bilat Scrn Digital AND CAD Result: Comments: See Note; NOTES: [facility] Imaging Services [address] [place] [address] Verdana 4d Bilat Scrn Digital AND CAD MR#: [id number] Acct: [id number] Name: ARELIS ABAD Rep #: [id number] : 1960 F 55 From: Jordy Masters MD PCP: Chanel Varma DO Status: REG CLI Study: Bilat Scrn Digital AND CAD Date of Exam: 07/23/16 Exam# [id number] Ordering Dr: Chanel Palacios DO MAMMOGRAPHY - BILATERAL SCREENING REASON FOR EXAM: Female, 55 years old. Routine annual screening examination. PERTINENT HISTORY: Mother with breast cancer. TECHNIQUE: Digital jose luis ateral breast emmanuel (3D mammographic acquisition) in the CC and MLO projections. 2-D mediolateral oblique (MLO) and craniocaudad (CC) views of both breasts were obtained. CAD: Full Field Digital Mammogra phy with Computer Added Detection was performed. COMPARISON: Comparison is made with prior study dated April 26, 2015. FINDINGS: Breast Composition: There are s cattered areas of fibroglandular density. There are no dominant masses or suspicious calcifications. No other significant abnormalities are identified. There has been no significant change since the p rior study. HPBI/Bilat Scrn Digital AND CAD IMPRESSION: Stable bilateral screening mammogram. Yearly follow-up mammogram recommended. (A) ASSESSMENT CATEGORY: BIRADS Category 1: Negative. A letter regarding these results will be sent to the patient by the facility within 30 days. Approximately 10% of breast cancers are not detected by mammography. A normal mammogram should not delay biopsy of a clinically suspicious abnormality. [id number] Electronically Signed: Jordy Masters MD at 10:50 ES T Tel [phone], Service support [phone], CC: Chanel Varma DO Consulting Group Analyst: Signed 23-Jul-2016 Dexa Bone Density Study () Result: Comments: See Note; NOTES: [facility] Imaging Services [address] [place] [address] Verdana 4d Dexa Bone Density Study () MR#: [id number] Acct: [id number] Name: BRYANT ABAD Rep #: [id number] : 1960 F 55 From: Jordy Masters MD PCP: Chanel Varma DO Status: [facility] Study: Dexa Bone Density Study () Date of Exam: 07/23/16 Exam# [id number] Ordering Dr : Chanel Varma DO STUDY: DUAL ENERGY X-RAY ABSORPTIOMETRY / DXA REASON FOR EXAM: Female, 55 years old. Early menopause. Loss of height. TECHNIQUE: Bone Mineral Density (BMD) measurements of lumb ar spine and bilateral hips were obtained. COMPARISON: Comparison is made with prior study dated February 01, 2010. FINDINGS: Lumbar Spine (L1-L4): g/cm2 (1.193) / T-s core (0.1) / Z-score (1.0) Findings are suggestive of normal bone density with a low fracture risk. Left Femur Total: g/cm2 (0.982) / T-score (-0.2) / Z- score (0.5) Left Femoral Neck: g/cm2 (0.985) / T -score (-0.4) / Z-score (0.7) Right Femur Total: g/cm2 (0.920) / T-score (-0.7) / Z-score (0.0) Right Femoral Neck: g/cm2 (0.860) / T-score (-1.3) / Z-score (- 0.2) The T-Scores on the most recent prior examination were: Lumbar Spine (L1-L4): There has been worsening of bone density since the previous examination. Left Femur Total: which represents a worsening of 8.4%. Right Femur Total: which repre sents a worsening of 7.4%. 0001 HPBD/Dexa Bone Density Study (HP) IMPRESSION: The patient is considered osteopenic at the level of the right femoral n veronica as outlined below according to World Yon Organization (WHO) criteria with a moderate fracture risk. There has been worsening of bone density since the previous examination. Reference Information: The T-score is the number of standard deviations above or below the standard which is normal for young adults at their peak bone mineral density. The World Health O rganization (WHO) interprets the T-scores as follows: Above -1 Normal bone density Between -1 and -2.5 Osteopenia Equal to / or below -2.5 Osteoporosis As a practical clinical guideline, osteopenia ma y be graded as follows: Mild -1 through -1.5 Moderate -1.6 through -2.0 Severe -2.1 through -2.4 The Z-score is the number of standard deviations above or below age-matched controls. A Z-score of less than -1.5 would be considered abnormal. References: 1. NIH Osteoporosis and Related Bone Diseases http://www.osteo.org 2. International Society for Clinical Densitometry http://www.iscd.org 3. National Osteoporosis Foundation http://www.nof.org Electronically Signed: Jordy Masters MD at 9:07 EST Tel [phone], Service support [phone], CC: Chanel Varma DO Consulting Group Analyst: Signed 21-Apr-2016 Emergency Department Summary Result: Comments: See Note; NOTES: [facility] Medical Records Department [address] [place] [address] Emergency Department Summary MR#: [id number] Acct: [id number] Name: BRYANT ABAD VALENTINE Joy Rep #: [id number] : 1960 55 From: Saira Manriquez MD PCP: Chanel Varma DO Status: DEP ER DATE OF SERVICE: 04/20/2016 CHIEF COMPLAINT: Nausea, vomiting and diarrhea. HISTORY OF PRESENT ILLNESS: The patient is a 55-year-old female who comes in with nausea, vomiting and diarrhea over the past 4 days. She denies blood in her stool or emesis. She has had 2 episodes of vomiting tod ay and 8 episodes of diarrhea. 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 She has a history of appendectomy and cholecystectomy. Her has herndon d C. diff in the past and states she does not feel that this the diarrhea is frequent enough to be C. diff. PHYSICAL EXAMINATION: VITAL SIGNS: Vitals are stable. The patient is afebrile. GENERAL: Alert , in no acute distress. HEENT: Dry mucous membranes. NECK: Supple. HEART: Regular rate and rhythm. LUNGS: Clear and equal. ABDOMEN: Soft, nontender, nondistended. BACK: Nontender. SKIN: Warm and dry. NE UROLOGIC: The patient is alert and oriented. Normal affect. EMERGENCY DEPARTMENT COURSE: CBC, chemistries are unremarkable except for creatinine of 1.27, which is at her baseline. Lipase is normal. She was given IV fluids and Zofran with improvement. She feels improved. She will be given a prescription for Zofran. Advised to follow up with her primary care physician. Advised to return to the ED for w orsening symptoms. CLINICAL IMPRESSION: Vomiting and diarrhea. DISPOSITION: The patient will be discharged. Saira Manriquez MD T: [facility] JOB: [id number] 04/21/16 0003 <Electronically signed b florencio Manriquez MD> Date Saira Manriquez MD Cosigner Signature (If Indicated): Date CC : Chanel Varma DO Date Dictated: 04/20/162320 Date Transcribed: 04/20/162320 Consulting Group Analyst: Signed 20-Apr-2016 Discharge Instruction Result: Comments: See Note; NOTES: [facility] Medical Records Department [address] [place] [address] [place] [address] Discharge Instruction 04/20/162316 MR#: [id number] Acct: [id number] Name: LEATHA CONTEH Rep #: [id number] : 1960 55 From: Saira Manriquez MD PCP: Chanel Varma DO Status: REG ER ED Disposition - Plan for ED Patient: Chief Complaint: Nausea/Vomiting/Diarrhea In structions: ED Vomiting And Diarrhea, Nonspecific (Adult) Prescriptions: Ondansetron [Zofran Odt] 4 mg PO Q8H PRN PRN #10 tablet PRN Reason: Nausea What to do if you have Problems For any increased pain, shortness of breath, bleeding, nausea or vomiting, chest pain, or any unexpected problems, contact your doctor. Call [facility] ([phone]) or report to the closest Emergency Room. Call [phone] if necessary. 04/20/162317 <Electronically signed by Saira Manriquez MD> Date Saira Manriquez MD Cosigner Signature (If Indicat ed): Date CC: Chanel Varma DO 07-Feb-2016 PT D/C Summary (1) Result: Comments: See Note; NOTES: [facility] Physical Therapy [facility] [address] [place] [address] Fax REHABILITATION SE NATASHA DISCHARGE SUMMARY MR#: [id number] Acct: [id number] Name: LEATHA ABAD Rep #: [id number] : 1960 55 From: Marina Damico PT, Cert. MDT Referring Dr.: Chanel Varma DO Statu s: REG RCR Insurance: [facility] - PT D/C Summary It has been my pleasure to treat LEATHA ABAD under orders from Chanel Varma, for the diagnosis of CERVICAL HERNIATION, L GELA HURTADO IN, PSORIATIC ARTHROPATHY, S/P CERV FUSION for a total of 21 visit(s). Discharge Date: Please see the following information for a summary of their discharge status. - Subjective Subjective: [facility] IS APOLOGETIC ABOUT ARRIVING LATE. PATIENT REPORTS SHE IS DOING SO MUCH BETTER. 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 SHE PLANS TO REITRE TOWARD THE END OF THE YEAR. SHE REPORTS THE WATER WAS VERY HELPFUL AND SHE HAS ACCESS TO A POOL. THINKING ABOUT JOINING OUR [facility] IN THE WINTER. - Pain headache Pain Intensity (Out of 10): 0 B UE's Pain Intensity (Out of 10): 0 Neck Pain Intensity (Out of 10): 1 - Overall Improvement % Improvement: 95 - Objective Objective/Function: RIGHT SHOULDER ACTIVE FLEXION HAS I MPROVED TO 155 DEG. LEFT SHOULDER FLEXION REMAINS 145 DEG. CERVICAL MVMT LOSS: FLEX - MIN, EXT - MOD TO VERENICE, RIGHT ROT - MOD, LEFT ROT MAJOR, JOSE LUIS SB - VERENICE. PATIENT CONTINUES TO BE LIMITED AND PAINFUL WITH LEFT CERVICAL ROTATION. INDEP WITH LAND AND WATER HEP'S - Goals Goal 1:: DECREASE C/O NECK/UPPER BACK PAIN Goal Progress: Goal Met Goal 2:: DECREASE C/O JOSE LUIS UE NUMBNESS/TINGLING EPISODES Goa l Progress: Goal Met Goal 3:: IMPROVE STANDING, WALKING, REACHING, DRIVING, LIFTING, ADL, WORK AND SLEEP FUNCTION Goal Progress: Goal Met Goal 4:: INCREASE PAINFREE FUNCTIONAL CERVICAL AND JOSE LUIS UE ROM AND STRENGTH TO MEET HELP MEET GOAL # 3 Goal 5:: INDEP LAND AND/OR WATER EX PROGRAM (PATIENT IS INTERESTED IN [facility]) - Plan Plan: D/C. PATIENT AGREEABLE - D/C Information If there are questions or concerns regarding this patient's physical therapy, please feel free to call me at [phone]. Thank you for the referral of this patient. Sincerely, Marina Damico &#6 0;Electronically signed by Cert. KENDELL Arzola PTT> 02/07/16 1031 CC: Chanel Varma DO DOMONIQUE Signed 12-Dec-2015 Inital Evaluation (1) - PT Result: Comments: See Note; NOTES: [facility] Physical Therapy [facility] [place] [address] Fax REHABILITATION SE RVICES INITIAL EVALUATION MR#: [id number] Acct: [id number] Name: LEATHA ABAD Rep #: [id number] : 1960 55 From: Cert. KENDELL Arzola PTT Referring Dr.: Chanel Varma DO Stat us: REG [facility] Insurance: [employer] Date: Patient's Visit Information LEATHA ABAD is a 55 year old F referred to Physical Therapy by Chanel Varma with a diagnosis of CERVICAL HER NIATION, L SHLD PAIN, PSORIATIC ARTHROPATHY, S/P CERV FUSION. Date of Evaluation: 12/12/15 Physical Therapist: Marina Damico - Visit Plan Frequency: 2-3x /Week Duration: 2 Months - Subjective Subjective: THIS PATIENT PRESENTS TO PT S/P CERVICAL DISCECTOMY AND FUSION NOVEMBER [address] EDIN COTTER AT [facility]. 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 SHE ALSO HAS A SHOULDER PROBLEM. X-RAY SHOWS CALCIFICATION OF A TENDON IN HER LEFT SHOULDER. PRIOR TO NECK SURGERY SHE HAD PT MAINLY ON HER LEFT SHOULDER BUT ALSO SOME ON HER NECK LAST FALL HERE AT [facility]. SHE REPORTS SHE REGAINED MOST OF HER LEFT SHOULDER MOBILITY LAST FALL BUT THEN SHE HAD INCREASED PAIN IN AUGUST FOR NO APPARENT REASON. SHE STARTED GETTING A LOT OF PAIN, NUMBNESS AND TIN GLING IN THE LEFT UE. SHE REPORTS SHE WAS ONLY ABLE TO WORK ABOUT 2.5 DAYS A WEEK PRIOR TO SURGERY DUE TO THE PAIN. EMG OF LUE INDICATED A CERVICAL COMPONENT TOO SO THAT LEAD TO MRI AND SURGERY. NO LEF T SHOULDER SURGERY OR FURTHER CORTISONE SHOTS SINCE LAST EPISODE OF CARE WITH PT. WORSE WITH: ANY REACHING OR USE OF ARMS AND TURNING HEAD. BETTER WITH: BEING STILL WITH ARMS AT SIDES. PAIN SCALE: NEC K/UPPER BACK PAIN RANGING 0-4/10. INTERMITTENT BILATERAL HAND TINGLING. PMH: PSORIATIC ARTHRITIS - Objective THIS PATIENT AMBULATES INDEP'LY INTO PT WITHOUT ANY ASSISTIVE DEVICES OR GROSS DEVIATIONS NOTED. SITTING POSTURE IS POOR, STANDING POSTURE IS POOR. RIGHT SHOULDER AROM = 110 DEG WITH ERP, LEFT 80 DEG. JOSE LUIS DYEING MACHINE TENDER STRENGTH IS 20 LBS AND PROVOKES PAIN WITH TESTING. JOSE LUIS ELBOW, WRIST, FOREARM A ND HAND AROM IS SYMMETRICAL BUT ARTHRITIC AND THERE IS ERP WITH LEFT ELBOW EXTENSION. MMT NOT PERFORMED DUE TO SHOULDER AROM AND DYEING MACHINE TENDER TESTING PROVOKING PAIN. ANTERIOR CERVICAL INCISION LOOKS TO BE WEL L HEALING WITHOUT ANY SIGNS OF INFRECTION. SHE HAS MAJOR CERVICAL ROM MVMT LOSS ALL PLANES AND LEFT ROTATION IS ESPECIALLY LIMITED. SHE HAS PAIN AT THE END OF THE AVAILABLE RANGE WITH CERVICAL ROM ARIADNA TING ALL PLANES. BILATERAL UE (INCLUDING HANDS) LIGHT TOUCH SENSATION IS INTACT AND SYMMETRICAL WITH TESTING TODAY. - Goals Goal 1:: DECREASE C/O NECK/UPPER BACK PAIN Goal Time Frame: 8-12 Weeks G oal 2:: DECREASE C/O JOSE LUIS UE NUMBNESS/TINGLING EPISODES Goal Time Frame: 8-12 Weeks Goal 3:: IMPROVE STANDING, WALKING, REACHING, DRIVING, LIFTING, ADL, WORK AND SLEEP FUNCTION Goal Time Frame: 8-12 W eeks Goal 4:: INCREASE PAINFREE FUNCTIONAL CERVICAL AND JOSE LUIS UE ROM AND STRENGTH TO MEET HELP MEET GOAL # 3 Goal Time Frame: 8-12 Weeks Goal 5:: INDEP LAND AND/OR WATER EX PROGRAM (PATIENT IS INTERES NAT[facility] IN [facility]) Goal Time Frame: 8-12 Weeks - Rehabilitation Potential Physical Therapy Diagnosis: AND DISCECTOMY 11/13/15 Rehabilitation Potential: Good - Anticipated Intervention s Patient/Client Instruction: Educate patient on: Condition, Plan of Care, Risk Factors, Benefits of Fitness Program For the Purpose of:: To improve self management Therapeutic Exercise to Include: Strength training, Body mechanics, Postural training, In an aquatic setting, Active ROM, Scapular Strength/Stabilization For the Purpose of:: To improve ability of physical actions f or home/community/work/leisure Manual Therapy Techniques to Include: Passive ROM, Soft tissue mobilization For the Purpose of:: To increase ROM Cryotherapy (ice pack, ice massage): Yes Thermo therap y (hot pack): Yes Ultrasound (thermal/non thermal): Yes Thank you for the opportunity to evaluate your patient. For Medicare and Medicare HMO plans, please review the plan of care and approve it . It will need to be FAXED BACK to us at [phone] for Medicare purposes. Please let me know if there are questions or concerns regarding this plan of care. Physician Signature: Date: <Electronically signed by Marina Damico PT, Cert. MDT> 12/12/15 1113 CC: Chanel Varma DO DOMONIQUE Signed For Medicare only, by signing this I certify the plan of care. Physicians Signature Date 06-Nov-2015 EKG (81881) Comments: nsr no acute chg Result: [MEASUREMENTS ANALYSIS] Date of Test: 11/06/2015 09:32:00; Heart Rate: 80; KS Interval: 190; QRS: 88; QT Interval: 354; Corrected QT Interval (QTc): 389; P Wave Ione: 37; QRS Wave Ione: -17; T Wave Ione : 37; Blood Pressure: 122/80 [ECG DIAGNOSTIC STATEMENTS] Date of Test: 11/06/2015 09:32:00; Summary: Sinus Rhythm WITHIN NORMAL LIMITS 18-Aug-2015 Spine Cervical (Routine) Result: Comments: See Note; NOTES: [facility] Imaging Services [address] [place] [address] Verdana 4d Spine Cervical (Routine) MR#: [id number] Acct: [id number] Name: LEATHA ARNETT Rep #: [id number] : 1960 F 54 From: Anand Zepeda MD PCP: Chanel Varma DO Status: REG CLI Study: Spine Cervical (Routine) Date of Exam: 08/18/15 Exam# [id number] Orderi ng Dr: Chanel Varma DO STUDY: MRI CERVICAL SPINE WITHOUT CONTRAST REASON FOR EXAM: Female, 54 years old. Pain radiating from the left shoulder down to the arm with numbness and tingling. Occa sional severe pain in the left arm to the thumb. No known injury since March 2015 TECHNIQUE: Standardized fat and water weighted pulse sequences were obtained in the sagittal and axial planes. CO MPARISON: X-rays of the cervical spine on 08-07-15 FINDINGS: Normal foramen magnum and brainstem-cervical cord junction. Normal craniovertebral junction. There a re degenerative changes of the anterior atlantoaxial articulation. Normal odontoid process. There is straightening of the normal cervical lordosis. Normal vertebral bodies and posterior osseous iqugmiut ents. C2-3: Normal endplates. Normal disc height, signal and morphology. Normal central canal and intervertebral neural foramina. C3-4: Normal endplates. There is an annular bulge. Normal central c anal and intervertebral neural foramina. C4-5: Normal endplates. There is central disc herniation of the protrusion type contacting the ventral aspect of the cord measuring approximately 3 x 6 mm i n AP and transverse diameter (axial T2 series 7 image 113). Normal central canal and intervertebral neural foramina except for right foraminal perineural cyst. C5-6: Normal endplates. There is right paracentral disc herniation of the protrusion type with cord compression measuring approximately 5 x 7 mm in AP and transverse diameter (axial T2 series 7 image 88). Normal central canal and interve rtebral neural foramina. C6-7: There is endplate spondylosis. There is an annular bulge. Normal central canal. There is right foraminal stenosis. C7-T1: Normal endplates. Normal disc height, signal and morphology. Normal central canal and intervertebral neural foramina. Normal signal intensity of the cervical cord. Normal visualized soft tissue structures. _ IMPRESSION: C3-4 annular bulge. C4-5 Central disc herniation of the protrusion type contacting the cord. C5-6 right paracentral disc herniation of the protrusion type with cord compression. C6-7 degenerative disease with annular bulge. Right foraminal stenosis. Straightening of the normal lordosis Electronically Signed: Anand Zepeda MD, FACR at 18:12 EST Tel , Service support [phone], CC: Chanel Varma DO Consulting Group Analyst: Signed 07-Aug-2015 Cerv Spine 2 or 3 Views Result: Comments: See Note; NOTES: [facility] Imaging Services [address] [place] [address] Verda 4d Cerv Spine 2 or 3 Views MR#: [id number] Acct: [id number] Name: LEATHA BEE Rep #: [id number] : 1960 F 54 From: Lucho Villatoro MD PCP: Chanel Varma DO Status: REG CLI Study: Cerv Spine 2 or 3 Views Date of Exam: 08/07/15 Exam# [id number] Ordering Dr : Chanel Varma DO STUDY: X-RAY - CERVICAL SPINE REASON FOR EXAM: Female, 54 years old. Left shoulder and arm pain TECHNIQUE: 7 view(s) of the cervical spine were obtained. COMPARISON: None FINDINGS: Normal anterior atlantoaxial articulation. Normal odontoid process. Normal cervical lordosis. Normal vertebral bodies and endplates. Normal disc spa ce heights. Normal visualized intervertebral neuroforamina. The soft tissue structures are unremarkable. IMPRESSION: Normal x-ray examination of the visualized cervical spine. Electronically Signed: Terry Villatoro MD at 13:38 EST Tel , Service support [phone], RAD/Cerv Spine 2 or 3 Vi ews IMPRESSION: Normal x-ray examination of the visualized cervical spine. Electronically Signed: Terry Villatoro MD at 13:38 EST Tel , Service support [phone], CC: Chanel Varma DO Consulting Group Analyst: Signed 25-Jul-2015 NCS and/or EMG Patient Result: Comments: See Note; NOTES: [facility] Pulmonary Services/Neurology [address] [place] [address] NCS and/or EMG Patient MR#: [id number] Acct: [id number] Name: LEATHA CARMONA Rep #: [id number] : 1960 54 From: Ledy Cedillo MD Referring Dr: Spring Swartz Status: REG CLI Ordering Dr: Spring Swartz Date: 07/19/15 Location: N Sex: F C DATE OF SERVICE: The patient presents for electrodiagnostic testing of the left upper limb. She has chief complaint of pain, weakness, as well as numbness in the left hand. ELECTRODIAGNOSTIC FINDINGS: On nerve co nduction study, left median motor nerve demonstrates normal distal latency, amplitude, and conduction velocity. Normal left ulnar motor response. Normal left median and ulnar F waves. Normal sensory r esponses. On needle EMG, 1+ fibrillation potential is noted in the left extensor indices, left first dorsal interosseous and left lower cervical paraspinals. Motor unit action potentials are of norm al amplitude and duration. ELECTRODIAGNOSTIC ASSESSMENT: This is an abnormal study of the left upper limb. 1. Findings are consistent with left-sided C8 radiculopathy. Would recommend clinical magda elation with cervical spine imaging to evaluate for spondylosis or possible disk disease. 2. No electrodiagnostic evidence is noted peripheral neuropathy, including carpal tunnel syndrome. If there are any questions in regards to this exam, please do not hesitate to contact me. Ledy Cedillo MD T: NTS JOB: [id number] 07/25/15 0915 <Electronically signed by Ledy Cedillo MD> Date Ledy Cedillo MD CC: Spring Swartz; Ledy Cedillo; Chanel Varma DO Date Dictated: 07/19/151334 Date Transcribed: 07/19/151334 Consulting Group Analyst: Signed 26-Jun-2015 PT D/C Summary Result: Comments: See Note; NOTES: [facility] Physical Therapy [facility] [address] [place] [address]. [address] [place], [place] [address] Fax REHABILITATION RVICES DISCHARGE SUMMARY MR#: [id number] Acct: [id number] Name: LEATHA ABAD Rep #: [id number] : 1960 54 From: Marina Damico Referring Dr.: Spring Swartz Status: REG RCR Eval Date: Discharge Date: HP - PT D/C Summary It has been my pleasure to treat LEATHA ABAD under orders from Spring Swartz, for the diagnosis of LEFT SHOULDER AND FORARM PAIN for a total of 10 visi t(s). Please see the following information for a summary of their discharge status. - Subjective Subjective: PATIENT REPORTS SHE HAS A LOT MORE ROM BUT SHE STILL HAS PAIN. I'M REALLY HAPP Y WITH WHAT WE'VE DONE. I CAN TELL MY POSTURE IS BETTER AND I HAVE REALLY GOOD EXERCISES. PATIENT REPORTS SHE SAW DR. VARMA LAST WEEK AND SHE HAS AN EMG SCHEDULED July THEN SHE'LL FOLLO W BACK UP WITH HER FOR THE RESULTS. - Pain Left Shoulder Pain Intensity (Out of 10): 3 - Overall Improvement % Improvement: 90 - Objective Objective/Function: UPON EXAM, PATIENT CONTINUES TO HAVE THE SAME CERVICAL MVMT LOSS SHE DID AT THE INITIAL EVALUATION BUT HER LEFT SHOULDER ROM HAS IMPROVED ALL PLANES FOLLOWS: FLEXION 150 DEG, ABD 140 DEG, ER 55 DEG, IR 65 DEG WITH PAIN AT TH E END OF THE AVAILABLE RANGE ALL PLANES - Goals Goal 1:: DECREASE COMPLAINT OF LEFT UE SYMPTOMS Goal Progress: Progressing Goal 2:: IMPROVE ADL, WORK AND SLEEP FUNCTION Goal Progress: Progressing Goal 3:: INSTRUCT IN PROPHYLAXIS Goal Progress: Progressing - Plan Plan: D/C. PATIENT AGREEABLE - D/C Information If there are questions or concerns regarding this patient's physical therapy, oswaldo arnold feel free to call me at [phone]. Thank you for the referral of this patient. Sincerely, Marina Damico <Electronically signed by Marina Damico > 06/26/15 8917 CC: Spring Swartz; Chanel Varma DO DOMONIQUE Signed 07-Jun-2015 Inital Evaluation - PT Result: Comments: See Note; NOTES: [facility] Physical Therapy [facility] [address] [place] [address]. [address] [place] [address] Fax REHABILITATION SE RVICES INITIAL EVALUATION MR#: [id number] Acct: [id number] Name: LEATHA ABAD Rep #: [id number] : 1960 54 From: Marina Damico Referring DrLottie: Spring Swartz Status: REG R Insurance : [employer] Date: Patient's Visit Information LEATHA ABAD is a 54 year old F, referred to Physical Therapy by Spring Swartz,, with a diagnosis of LEFT SHOULDER AND FORARM PAIN. Aldo e of Evaluation: 05/31/15 Physical Therapist: Marina Damico - Visit Plan Frequency: 2-3x /Week Duration: 6 Months - Subjective THIS PATIENT PRESENTS TO PT WITH COMPLAINT OF LEFT SHOULDER AND FOR EARM PAIN WITH INTERMITTENT NUMBNESS AND TINGLING THAT STARTED ABOUT 5 WEEKS AGO FOR NO APPARENT REASON. X-RAY OF LEFT SHOULDER SHOWS CALCIFIED TENDONITIS. CORISONE SHOT HELPED SOME. NCT PENDING. THE FORARM SYMPTOM STARTED LATER. WORSE WITH: REACHING UP AND OUT TO THE SIDE. BETTER WITH: REST, ICE AND MASSAGE. SHE HAS BEEN WEARING A NIGHT SPLINT ON THE LEFT WRIST FOR ABOUT A WEEK AND IT SEEMS TO B E HELPING. PATIENT DENIES NECK PAIN. 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 PMH: PSORIATIC ARTHRITIS, REMOTE HISTORY OF NECK PAIN - Objective TH IS PATIENT AMBULATES INDEP'LY INTO PT WITHOUT ANY ASSSISTIVE DEVICES OR GROSS DEVIATIONS NOTED. HER SITTING POSTURE IS POOR. HER STANDING POSTURE IS FAIR. SHE HAS A FORWARD HEAD POSTURE BUT NOT TORTIC OLLIS. CERVICAL MVMT LOSS: EXT, LEFT SB AND LEFT ROT - MIN. SHE DEVIATES TO THE RIGHT IN EXTENSION. LEFT UE ROM AND STRENGTH IS WFL. AROM OF LEFT SHOULDE = 135 FLEX, 115, ABD, 50 ER, 45 IR. PATIENT HERNDON S C/O PAIN WITH LEFT SHOULDER ROM TESTING BUT NOT CERVICAL TESTING. SHE REALLY ISN'T TENDER WITH PALPATION OF THE SHOULDER OR CERVICAL REGIONS BUT SHE DOES HAVE INCREASED MUSCLE TONE OF BILATERAL UPPE R TRAP REGIONS. ACTIVE CORRECTION OF HER SITTING POSTURE HAS NO EFFECT ON HER SYMPTOMS. - Goals Goal 1:: DECREASE COMPLAINT OF LEFT UE SYMPTOMS Goal Time Frame: 4-6 Weeks Goal 2:: IMPROVE ADL, WOR K AND SLEEP FUNCTION Goal Time Frame: 4-6 Weeks Goal 3:: INSTRUCT IN PROPHYLAXIS Goal Time Frame: 4-6 Weeks - Rehabilitation Potential Rehabilitation Potential: Fair - Anticipated Interventions Patient/Client Instruction: Educate patient on: Condition, Plan of Care, Risk Factors, Benefits of Fitness Program For the Purpose of:: To improve self management Therapeutic Exercise to Include: St rength training, Body mechanics, Postural training, Passive ROM, Active ROM, Scapular Strength/Stabilization For the Purpose of:: To improve ability of physical actions for home/community/work/leisure Manual Therapy Techniques to Include: Passive ROM, Soft tissue mobilization For the Purpose of:: To increase ROM Cryotherapy (ice pack, ice massage): Yes Thermo therapy (hot pack): Yes Ultrasound (thermal/non thermal): Yes Thank you for the opportunity to evaluate your patient. For Medicare and Medicare HMO plans, please review the plan of care and approve it. It will need to be FAXED BA MARY ANN to us at [phone] for Medicare purposes. Please let me know if there are questions or concerns regarding this plan of care. Physician Signature: ____Date: <Electronically signed by Marina Damico > 06/07/15 1615 CC: Spring Swartz; Chanel Varma DO DOMONIQUE Signed For Medicare only, by signing this I certify the plan of care. Physicians Signature Date 24-May-2015 Forearm 2 Views Result: Comments: See Note; NOTES: [facility] Imaging Services [address] [place] [address] Radiology Report MR#: [id number] Acct: [id number] Name: LEATHA ABAD p #: [id number] : 1960 F 54 From: Lucho Morales MD PCP: Chanel Varma DO Status: REG CLI Study: Forearm 2 Views Date of Exam: 05/24/15 Exam# [id number] Ordering Dr: Spring Swartz STUDY: X-RAY - LEFT RADIUS AND ULNA REASON FOR EXAM: Female, 54 years old. Forearm pain. TECHNIQUE: 2 view(s) of the forearm. COMPARISON: None. FINDINGS: There is no demonstrated soft tissue swelling. Normal visualized radius. Normal visualized ulna. There is no demonstrated destructive osseous lesion. There is no demonstrated acute fracture. IMPRESSION: Normal x-ray examination of the radius and ulna. Electronically Signed: Terry Morales MD at 16:22 EDT , Service support [phone], RAD/Forearm 2 Views IMPRESSION: Normal x-ray examination of the radius and ulna. Electronically Signed: Terry Morales MD at 16:22 EDT , Service support [phone], CC: Spring Swartz; Chanel Varma DO Consulting Group Analyst: Signed 24-May-2015 Shoulder min 2 Views Result: Comments: See Note; NOTES: [facility] Imaging Services [address] [place] [address] Radiology Report MR#: [id number] Acct: [id number] Name: LEATHA ABAD p #: [id number] : 1960 F 54 From: Lucho Morales MD PCP: Chanel Varma DO Status: REG CLI Study: Shoulder min 2 Views Date of Exam: 05/24/15 Exam# [id number] Ordering Dr: Spring Swartz UDY: X-RAY - LEFT SHOULDER REASON FOR EXAM: Female, 54 years old. Painful shoulder radiating down the arm. TECHNIQUE: 4 view(s) of the shoulder. COMPARISON: None. ____ FINDINGS: Normal glenohumeral articulation. Normal acromioclavicular joint. Normal acromion. Normal humeral head and visualized proximal humerus. There is periarticular soft tissue calcific ation consistent with a calcific tendinitis. There is no demonstrated osseous destructive lesion or fracture. Normal visualized pulmonary apex. IMPRESSION: Fi ndings of calcific tendinitis of the rotator cuff. Electronically Signed: Terry Morales MD at 16:24 EDT , Service support [phone], RAD/Shoulder min 2 Views IMPRESSION: Findings of calcific tendinitis of the rotator cuff. Electronically Signed: Terry Morales MD at 16:24 EDT , Ser vice support [phone], CC: Spring Swartz; Chanel Varma DO Consulting Group Analyst: Signed 26-Apr-2015 Bilat Scrn Digital AND CAD Result: Comments: See Note; NOTES: [facility] Imaging Services [address] [place] [address] Breast Imaging Report MR#: [id number] Acct: [id number] Name: LEATHA ABAD p #: [id number] : 1960 F 54 From: Jordy Masters MD PCP: Chanel Varma DO Status: REG CLI Study: Bilat Scrn Digital AND CAD Date of Exam: 04/26/15 Exam# [id number] Ordering Dr: Chanel Varma DO MAMMOGRAPHY - BILATERAL SCREENING REASON FOR EXAM: Female, 54 years old. Routine annual screening examination. PERTINENT HISTORY: Mother with breast cancer. TECHNIQUE: Digital ex amination. Mediolateral oblique (MLO) and craniocaudad (CC) views of both breasts were obtained. CAD: CAD was performed on this study. COMPARISON: Comparison is made with prior outside examination d ated September 18, 2011. FINDINGS: Breast Composition: There are scattered areas of fibroglandular density. There are no dominant masses or suspicious calcificat ions. No other significant abnormalities are identified. There has been no significant change since the prior study. IMPRESSION: Stable bilateral screening payam mogram. Yearly follow-up recommended. (A) ASSESSMENT CATEGORY: BIRADS Category 1: Negative. A letter regarding these results will be sent to the patient by the facility within 30 days. Approximately 10% of breast cancers are not detected by mammography. A normal mammogram should not delay biopsy of a clinically suspicious abnormality. Electronically Sign ed: Jordy Masters MD at 9:11 EDT Tel [phone], Service support [phone], CC: Chanel Varma DO Consulting Group Analyst: Signed 07-Apr-2015 Gallbladder Result: Comments: See Note; NOTES: [facility] Imaging Services [address] [place] [address] Ultrasound Report MR#: [id number] Acct: [id number] Name: LEATHA ABAD Rep #: [id number] : 1960 F 54 From: Jordy Masters MD PCP: Chanel Varma DO Status: REG CLI Study: Gallbladder Date of Exam: 04/07/15 Exam# [id number] Ordering Dr: Chanel Varma DO UDY: ABDOMINAL ULTRASOUND - RIGHT UPPER QUADRANT REASON FOR VISIT: Female, 54 years old. 2 month history of epigastric pain. TECHNIQUE: Ultrasound evaluation of the right upper quadrant was perfor med with real-time and static mabry-scale imaging. TECHNICAL QUALITY: Adequate. COMPARISON: Comparison is made with prior study dated June 18, 2012. FINDINGS : Liver: The liver measures 17.6 cm. There is increased echogenicity consistent with fatty infiltration. The bile ducts are within normal limits. There is hepatic color flow. The direction of portal flow is hepatopetal. There is no demonstrated mass lesion. Gallbladder: The patient is status post cholecystectomy. Common Bile Duct (C.B.D.): The common bile duct measures 3.5 mm. Pancreas: Nor mal size of the head, body and tail of the pancreas. There is normal echogenicity of the pancreas. There is no demonstrated pancreatic mass or cyst. Right Kidney: Normal size of the right kidney. Th e right kidney measures 11.2 cm x 5.2 cm x 4.0 cm. Normal renal cortex. The right cortex measures 1.7 cm. There is no demonstrated renal mass or cyst. There is no right hydronephrosis. IMPRESSION: Fatty infiltration of the liver. The patient is status post cholecystectomy. Electronically Signed: Jordy Masters MD at 13:10 EDT Tel [phone], Service support [phone], CC: Chanel Varma DO Consulting Group Analyst: Signed 01-Mar-2015 Emergency Department Summary Result: Comments: See Note; NOTES: [facility] Medical Records Department [address] [place] [address] Emergency Department Summary MR#: [id number] Acct: [id number] Name: LEATHA CARMONA Rep #: [id number] : 1960 54 From: Joey Ponce MD PCP: Chanel Varma DO Status: DEP ER DATE OF SERVICE: 02/28/2015 CHIEF COMPLAINT: Nausea, vomiting and diarrhea. HIS TORY OF PRESENT ILLNESS: The patient has not felt well for about 3 days now, intermittent cramping, sometimes severe. She did not feel good ____ she thought she might have a fever, did not take it. S he said she has only had couple of episodes of nausea, but several episodes of diarrhea. She has tried some dicyclomine and Phenergan with some help. She has cholecystectomy with borderline diabetes a nd hypertension. No one else sick around her. No unusual foods. No recent antibiotics. No blood in stool or vomitus. PHYSICAL EXAMINATION: VITAL SIGNS: Stable, although heart rate up a little at 110 . HEENT: Normal. Membranes slightly dry. NECK: Supple. HEART: Regular. LUNGS: Clear. ABDOMEN: Soft with slightly hypoactive bowel sounds. Moderate severe diffuse pain on palpation, somewhat increa se in the upper area. No sign of peritoneal involvement. No flank or extremity pain. NEUROLOGICAL: Alert and oriented x3. TREATMENT: The patient's CBC normal. Chemistries show glucose up at 178 and creatinine slightly up at 1.5. She was advised of both and both need to be followed. Her liver studies and lipase normal. Zofran 4 mg and morphine 4 mg had markedly helped. She feels better, decline d any further pain medicines. I gave her a Zofran prescription 4 mg x10 one in every 6 hours for vomiting. She will continue to use her medications at home as needed, but not both the Phenergan and Zo rosemary. She did not want anything else for pain. She will follow up in the next [address] Varma. Recheck sooner for worse pain, fever, chills, nausea, vomiting, blood in vomitus or stool or dizziness. with her. Special diet restrictions were given. DIAGNOSES: Abdominal pain with vomiting and diarrhea. MD Danilo Roca C: Chanel Varma DO T: NTS JOB: [id number] 02/09 <Electronically signed by Joey Ponce MD> Date Joey Ponce MD CC: Chanel Varma DO Date Dictated: 02/28/15754 Date Transcribed: 02/28/15754 Consulting Group Analyst: Signed 28-Feb-2015 Discharge Instruction Result: Comments: See Note; NOTES: [facility] Medical Records Department [address] [place] [address] Discharge Instruction 02/28/15 0744 MR#: [id number] Acct: [id number] Name: LEATHA ABAD Rep #: [id number] : 1960 54 From: Joey Ponce MD PCP: Chanel Varma DO Status: REG ER ED Disposition - Plan for ED Patient: Chief Complaint: Nausea/Vomiting/Ysabel rrhea Instructions: ED Diet, Vomiting Or Diarrhea [6Yr-Adult] Prescriptions: Ondansetron [Zofran Odt] 4 mg PO Q8H PRN PRN #10 tablet PRN Reason: Nausea Referrals: Chanel Varma DO [Primary Care Provider] - 1-2 Days if not improving What to do if you have Problems For any increased pain, shortness of breath, bleeding, nausea or vomiting, chest pain, or any unexpected problems, contact y our doctor. Call [facility] ([phone]) or report to the closest Emergency Room. Call 911 if necessary. 02/28/15 0745 <Electronically signed by Joey Ponce MD> Date ____ Joey Ponce MD Cosigner Signature (If Indicated): Date CC: Chanel Varma DO 07-Jan-2014 Esophagus Only Result: Comments: See Note; NOTES: [facility] Imaging Services [address] [place] [address] Radiology Report MR#: [id number] Acct: [id number] Name: LEATHA ABAD Rep #: [id number] : 1960 F 53 From: Jordy Masters MD PCP: Chanel Varma DO Status: REG CLI Study: Esophagus Only Date of Exam: 01/07/14 Exam# [id number] Ordering Dr: Chanel Varma TUDY: X-RAY - ESOPHAGUS (BARIUM SWALLOW) WITH FLUOROSCOPY REASON FOR EXAM: Female, 53 years old. Dysphagia. Hoarseness. TECHNIQUE: Multiple view(s) of the esophagus were obtained following swallowi ng of barium. FLUOROSCOPY TIME (if supplied): (0:34) minutes/seconds COMPARISON: None. FINDINGS: There is no demonstrated esophageal foreign body. There is no demonstrated stricture or mucosal abnormality. Normal gastroesophageal junction, without a demonstrated hiatal hernia. The patient ingested a 12 mm tablet of barium. The tablet is trapped at the gas troesophageal junction. Normal visualized aortic arch and descending thoracic aorta. Normal visualized pulmonary parenchyma. Normal visualized osseous structures of the thorax. IMPRESSION: Normal plain film x-ray examination (barium swallow) of the esophagus. There is trapping of the 12 mm tablet of barium at the gastroesophageal junction. Electronicall y Signed: Jordy Masters MD at 10:01 EDT Tel [phone], Service support [phone], CC: Chanel Varma DO; Stevan Ngo MD Consulting Group Analyst: Signed Immunization Name Dates Details Influenza (3 years and up) on: 23-May-2009 Comments: Lot #[id number] by:[facility] Pneumococcal (2 years and up) on: 02-Aug-2016 Comments: Site: Deltoid (Left) Lot #: [id number] Family History Unknown Family Member Name Dates Details First Degree Relatives Comments: Cancer, Diabetes, Heart/Lung dx, HBP, High cholesterol Status: Active Social History Name Dates Details Alcohol Use Comments: Occasional alcohol use Status: Active Caffeine Use Comments: 1 or caffeine free Status: Active Exercise History Comments: 2 X a wk for 1/2 hr Status: Active Living Situation Comments: Remarried, heterosexual Status: Active Most Recent Primary Occupation 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 Comments: 10/30/11 Status: Active Smoking Status Name Dates Details Never smoker Vital Signs Date Test Result Details 13-May-20189:12 Pulse 72 /min Comments: Pattern: Regular Respiration Rate 18 /min Comments: Pattern: Unlabored O2 SAT 98 % Comments: Room air BP Systolic 122 mm[Hg] Comments: Patient Position: Standing; Cuff Location: Left Arm; Cuff Size: Large BP Diastolic 82 mm[Hg] Comments: Patient Position: Standing; Cuff Location: Left Arm; Cuff Size: Large Weight 189.5 lb Height 67 in Body Mass Index Calculated 29.68 kg/m2 Body Surface Area Calculated 1.98 m2 28-Xon-143230:06 Pulse 77 /min Comments: Pattern: Regular Respiration Rate 18 /min Comments: Pattern: Unlabored O2 SAT 97 % Comments: Room air BP Systolic 138 mm[Hg] Comments: Patient Position: Sitting; Cuff Location: Left Arm; Cuff Size: Large BP Diastolic 82 mm[Hg] Comments: Patient Position: Sitting; Cuff Location: Left Arm; Cuff Size: Large Weight 190.5 lb Height 67 in Body Mass Index Calculated 29.84 kg/m2 Body Surface Area Calculated 1.98 m2 :37 Pulse 75 /min Comments: Pattern: Regular Respiration Rate 18 /min Comments: Pattern: Unlabored O2 SAT 97 % Comments: Room air BP Systolic 142 mm[Hg] Comments: Patient Position: Sitting; Cuff Location: Left Arm; Cuff Size: Large BP Diastolic 80 mm[Hg] Comments: Patient Position: Sitting; Cuff Location: Left Arm; Cuff Size: Large Weight 190.375 lb Height 67 in Body Mass Index Calculated 29.82 kg/m2 Body Surface Area Calculated 1.98 m2 :37 Comments: Recheck 148/96 Temperature 97.2 f Pulse 74 /min Comments: Pattern: Regular Respiration Rate 18 /min Comments: Pattern: Unlabored O2 SAT 99 % Comments: Room air BP Systolic 152 mm[Hg] Comments: Patient Position: Sitting; Cuff Location: Left Arm; Cuff Size: Standard BP Diastolic 98 mm[Hg] Comments: Patient Position: Sitting; Cuff Location: Left Arm; Cuff Size: Standard Weight 190.375 lb Height 67 in Body Mass Index Calculated 29.82 kg/m2 Body Surface Area Calculated 1.98 m2 :39 Temperature 97.9 f Comments: Method: Temporal Pulse 96 /min Comments: Pattern: Regular Respiration Rate 17 /min Comments: Pattern: Unlabored O2 SAT 96 % Comments: Room air BP Systolic 146 mm[Hg] Comments: Patient Position: Sitting; Cuff Location: Left Arm; Cuff Size: Large BP Diastolic 88 mm[Hg] Comments: Patient Position: Sitting; Cuff Location: Left Arm; Cuff Size: Large Weight 190.5 lb Height 67 in Body Mass Index Calculated 29.84 kg/m2 Body Surface Area Calculated 1.98 m2 :54 Pulse 92 /min Comments: Pattern: Regular Respiration Rate 18 /min Comments: Pattern: Unlabored O2 SAT 94 % Comments: Room air BP Systolic 132 mm[Hg] Comments: Patient Position: Sitting; Cuff Location: Left Arm; Cuff Size: Standard BP Diastolic 80 mm[Hg] Comments: Patient Position: Sitting; Cuff Location: Left Arm; Cuff Size: Standard Weight 189.375 lb Height 67 in Body Mass Index Calculated 29.66 kg/m2 Body Surface Area Calculated 1.98 m2 :09 Pulse 81 /min Comments: Pattern: Regular Respiration Rate 18 /min Comments: Pattern: Unlabored O2 SAT 96 % Comments: Room air BP Systolic 120 mm[Hg] Comments: Patient Position: Standing; Cuff Location: Left Arm; Cuff Size: Large BP Diastolic 86 mm[Hg] Comments: Patient Position: Standing; Cuff Location: Left Arm; Cuff Size: Large Weight 174.25 lb Height 67 in Body Mass Index Calculated 27.29 kg/m2 Body Surface Area Calculated 1.91 m2 :46 Pulse 98 /min Comments: Pattern: Regular Respiration Rate 18 /min Comments: Pattern: Unlabored O2 SAT 98 % Comments: Room air BP Systolic 142 mm[Hg] Comments: Patient Position: Sitting; Cuff Location: Left Arm; Cuff Size: Large BP Diastolic 88 mm[Hg] Comments: Patient Position: Sitting; Cuff Location: Left Arm; Cuff Size: Large Weight 181.375 lb Height 67 in Body Mass Index Calculated 28.41 kg/m2 Body Surface Area Calculated 1.94 m2 :53 Temperature 98.6 f Pulse 102 /min Comments: Pattern: Regular Respiration Rate 18 /min Comments: Pattern: Unlabored O2 SAT 97 % Comments: Room air BP Systolic 148 mm[Hg] Comments: Patient Position: Sitting; Cuff Location: Left Arm; Cuff Size: Standard BP Diastolic 80 mm[Hg] Comments: Patient Position: Sitting; Cuff Location: Left Arm; Cuff Size: Standard Weight 180 lb Height 67 in Body Mass Index Calculated 28.19 kg/m2 Body Surface Area Calculated 1.93 m2 :34 Pulse 88 /min Comments: Pattern: Regular Respiration Rate 18 /min Comments: Pattern: Unlabored O2 SAT 97 % Comments: Room air BP Systolic 138 mm[Hg] Comments: Patient Position: Sitting; Cuff Location: Left Arm; Cuff Size: Standard BP Diastolic 82 mm[Hg] Comments: Patient Position: Sitting; Cuff Location: Left Arm; Cuff Size: Standard Weight 179.375 lb Height 67 in Body Mass Index Calculated 28.09 kg/m2 Body Surface Area Calculated 1.93 m2 :56 Pulse 86 /min Comments: Pattern: Regular Respiration Rate 18 /min Comments: Pattern: Unlabored O2 SAT 96 % Comments: Room air BP Systolic 128 mm[Hg] Comments: Patient Position: Sitting; Cuff Location: Left Arm; Cuff Size: Large BP Diastolic 82 mm[Hg] Comments: Patient Position: Sitting; Cuff Location: Left Arm; Cuff Size: Large Weight 187.375 lb Height 67 in Body Mass Index Calculated 29.35 kg/m2 Body Surface Area Calculated 1.97 m2 :05 Pulse 100 /min Comments: Pattern: Regular Respiration Rate 18 /min Comments: Pattern: Unlabored O2 SAT 98 % Comments: Room air BP Systolic 128 mm[Hg] Comments: Patient Position: Sitting; Cuff Location: Left Arm; Cuff Size: Standard BP Diastolic 80 mm[Hg] Comments: Patient Position: Sitting; Cuff Location: Left Arm; Cuff Size: Standard Weight 188.125 lb Height 67 in Body Mass Index Calculated 29.46 kg/m2 Body Surface Area Calculated 1.97 m2 :23 Temperature 99 f Pulse 86 /min Comments: Pattern: Regular Respiration Rate 17 /min Comments: Pattern: Unlabored O2 SAT 96 % Comments: Room air BP Systolic 136 mm[Hg] Comments: Patient Position: Sitting; Cuff Location: Left Arm; Cuff Size: Standard BP Diastolic 86 mm[Hg] Comments: Patient Position: Sitting; Cuff Location: Left Arm; Cuff Size: Standard Weight 187.375 lb Height 67 in Body Mass Index Calculated 29.35 kg/m2 Body Surface Area Calculated 1.97 m2 :14 Temperature 99.3 f Pulse 110 /min Comments: Pattern: Regular Respiration Rate 17 /min Comments: Pattern: Unlabored O2 SAT 95 % Comments: Room air BP Systolic 124 mm[Hg] Comments: Patient Position: Sitting; Cuff Location: Left Arm; Cuff Size: Standard BP Diastolic 82 mm[Hg] Comments: Patient Position: Sitting; Cuff Location: Left Arm; Cuff Size: Standard Weight 185.8 lb Height 67 in Body Mass Index Calculated 29.1 kg/m2 Body Surface Area Calculated 1.96 m2 :40 Pulse 87 /min Comments: Pattern: Regular Respiration Rate 18 /min Comments: Pattern: Unlabored O2 SAT 97 % Comments: Room air BP Systolic 128 mm[Hg] Comments: Patient Position: Sitting; Cuff Location: Left Arm; Cuff Size: Standard BP Diastolic 82 mm[Hg] Comments: Patient Position: Sitting; Cuff Location: Left Arm; Cuff Size: Standard Weight 187 lb Height 67 in Body Mass Index Calculated 29.29 kg/m2 Body Surface Area Calculated 1.97 m2 :04 Temperature 99.4 f Pulse 95 /min Comments: Pattern: Regular Respiration Rate 16 /min Comments: Pattern: Unlabored O2 SAT 98 % Comments: Room air BP Systolic 124 mm[Hg] Comments: Patient Position: Sitting; Cuff Location: Left Arm; Cuff Size: Standard BP Diastolic 82 mm[Hg] Comments: Patient Position: Sitting; Cuff Location: Left Arm; Cuff Size: Standard Weight 187 lb Height 67 in Body Mass Index Calculated 29.29 kg/m2 Body Surface Area Calculated 1.97 m2 :12 Pulse 81 /min Comments: Pattern: Regular Respiration Rate 18 /min Comments: Pattern: Unlabored O2 SAT 98 % Comments: Room air BP Systolic 142 mm[Hg] Comments: Patient Position: Sitting; Cuff Location: Left Arm; Cuff Size: Large BP Diastolic 80 mm[Hg] Comments: Patient Position: Sitting; Cuff Location: Left Arm; Cuff Size: Large Weight 190 lb Height 67 in Body Mass Index Calculated 29.76 kg/m2 Body Surface Area Calculated 1.98 m2 :03 Pulse 96 /min Comments: Pattern: Regular Respiration Rate 18 /min Comments: Pattern: Unlabored O2 SAT 96 % Comments: Room air BP Systolic 128 mm[Hg] Comments: Patient Position: Sitting; Cuff Location: Left Arm; Cuff Size: Large BP Diastolic 84 mm[Hg] Comments: Patient Position: Sitting; Cuff Location: Left Arm; Cuff Size: Large Weight 189.25 lb Height 67 in Body Mass Index Calculated 29.64 kg/m2 Body Surface Area Calculated 1.98 m2 :45 Temperature 97 f Comments: Method: Temporal Pulse 72 /min Comments: Pattern: Regular Respiration Rate 16 /min Comments: Pattern: Unlabored BP Systolic 136 mm[Hg] Comments: Patient Position: Sitting; Cuff Location: Left Arm; Cuff Size: Standard BP Diastolic 74 mm[Hg] Comments: Patient Position: Sitting; Cuff Location: Left Arm; Cuff Size: Standard Weight 189.25 lb Height 67 in Body Mass Index Calculated 29.64 kg/m2 Body Surface Area Calculated 1.98 m2 :59 Pulse 87 /min Comments: Pattern: Regular Respiration Rate 18 /min Comments: Pattern: Unlabored O2 SAT 97 % Comments: Room air BP Systolic 140 mm[Hg] Comments: Patient Position: Sitting; Cuff Location: Left Arm; Cuff Size: Large BP Diastolic 82 mm[Hg] Comments: Patient Position: Sitting; Cuff Location: Left Arm; Cuff Size: Large Weight 190.25 lb Height 67 in Body Mass Index Calculated 29.8 kg/m2 Body Surface Area Calculated 1.98 m2 :53 Temperature 97.6 f Comments: Method: Temporal Pulse 72 /min Comments: Pattern: Regular Respiration Rate 16 /min Comments: Pattern: Unlabored O2 SAT 98 % Comments: Room air BP Systolic 122 mm[Hg] Comments: Patient Position: Sitting; Cuff Location: Left Arm; Cuff Size: Standard BP Diastolic 70 mm[Hg] Comments: Patient Position: Sitting; Cuff Location: Left Arm; Cuff Size: Standard Weight 188.375 lb Height 67 in Body Mass Index Calculated 29.5 kg/m2 Body Surface Area Calculated 1.97 m2 :39 Temperature 98.2 f Comments: Method: Oral Pulse 85 /min Comments: Pattern: Regular Respiration Rate 16 /min Comments: Pattern: Unlabored O2 SAT 97 % Comments: Room air BP Systolic 136 mm[Hg] Comments: Patient Position: Sitting; Cuff Location: Left Arm; Cuff Size: Standard BP Diastolic 80 mm[Hg] Comments: Patient Position: Sitting; Cuff Location: Left Arm; Cuff Size: Standard Weight 178.375 lb Height 67 in Body Mass Index Calculated 27.94 kg/m2 Body Surface Area Calculated 1.93 m2 :05 Pulse 83 /min Comments: Pattern: Regular Respiration Rate 18 /min Comments: Pattern: Unlabored O2 SAT 98 % Comments: Room air BP Systolic 142 mm[Hg] Comments: Patient Position: Sitting; Cuff Location: Left Arm; Cuff Size: Large BP Diastolic 90 mm[Hg] Comments: Patient Position: Sitting; Cuff Location: Left Arm; Cuff Size: Large Weight 178.375 lb Height 67 in Body Mass Index Calculated 27.94 kg/m2 Body Surface Area Calculated 1.93 m2 :06 Pulse 86 /min Comments: Pattern: Regular Respiration Rate 18 /min Comments: Pattern: Unlabored O2 SAT 97 % Comments: Room air BP Systolic 124 mm[Hg] Comments: Patient Position: Sitting; Cuff Location: Left Arm; Cuff Size: Large BP Diastolic 82 mm[Hg] Comments: Patient Position: Sitting; Cuff Location: Left Arm; Cuff Size: Large Weight 176.5 lb Height 67 in Body Mass Index Calculated 27.64 kg/m2 Body Surface Area Calculated 1.92 m2 :29 Pulse 87 /min Comments: Pattern: Regular Respiration Rate 18 /min O2 SAT 97 % Comments: Room air BP Systolic 122 mm[Hg] BP Diastolic 80 mm[Hg] Weight 184.375 lb Height 67 in Body Mass Index Calculated 28.88 kg/m2 Body Surface Area Calculated 1.95 m2 :09 Pulse 95 /min Comments: Pattern: Regular Respiration Rate 18 /min Comments: Pattern: Unlabored O2 SAT 96 % Comments: Room air BP Systolic 120 mm[Hg] Comments: Patient Position: Sitting; Cuff Location: Left Arm; Cuff Size: Large BP Diastolic 80 mm[Hg] Comments: Patient Position: Sitting; Cuff Location: Left Arm; Cuff Size: Large Weight 190.375 lb Height 67 in Body Mass Index Calculated 29.82 kg/m2 Body Surface Area Calculated 1.98 m2 :05 Pulse 78 /min Comments: Pattern: Regular Respiration Rate 18 /min Comments: Pattern: Unlabored O2 SAT 97 % Comments: Room air BP Systolic 138 mm[Hg] Comments: Patient Position: Sitting; Cuff Location: Left Arm; Cuff Size: Large BP Diastolic 88 mm[Hg] Comments: Patient Position: Sitting; Cuff Location: Left Arm; Cuff Size: Large Weight 195.375 lb Height 67 in Body Mass Index Calculated 30.6 kg/m2 Body Surface Area Calculated 2 m2 :04 Temperature 98.2 f Comments: Method: Temporal Pulse 88 /min Comments: Pattern: Regular Respiration Rate 18 /min Comments: Pattern: Unlabored O2 SAT 96 % Comments: Room air BP Systolic 142 mm[Hg] Comments: Patient Position: Sitting; Cuff Location: Left Arm; Cuff Size: Large BP Diastolic 80 mm[Hg] Comments: Patient Position: Sitting; Cuff Location: Left Arm; Cuff Size: Large Weight 194.5 lb Height 67 in Body Mass Index Calculated 30.46 kg/m2 Body Surface Area Calculated 2 m2 :08 Pulse 79 /min Comments: Pattern: Regular Respiration Rate 20 /min Comments: Pattern: Unlabored O2 SAT 98 % Comments: Room air BP Systolic 138 mm[Hg] Comments: Patient Position: Sitting; Cuff Location: Left Arm; Cuff Size: Large BP Diastolic 82 mm[Hg] Comments: Patient Position: Sitting; Cuff Location: Left Arm; Cuff Size: Large Weight 196.25 lb Height 67 in Body Mass Index Calculated 30.74 kg/m2 Body Surface Area Calculated 2.01 m2 :07 Temperature 97.6 f Pulse 101 /min Comments: Pattern: Regular Respiration Rate 18 /min Comments: Pattern: Unlabored O2 SAT 95 % Comments: Room air BP Systolic 134 mm[Hg] Comments: Patient Position: Sitting; Cuff Location: Left Arm; Cuff Size: Standard BP Diastolic 86 mm[Hg] Comments: Patient Position: Sitting; Cuff Location: Left Arm; Cuff Size: Standard Weight 196 lb Height 67 in Body Mass Index Calculated 30.7 kg/m2 Body Surface Area Calculated 2 m2 :21 Temperature 98.8 f Comments: Method: Temporal Pulse 75 /min Comments: Pattern: Regular Respiration Rate 16 /min Comments: Pattern: Unlabored BP Systolic 130 mm[Hg] Comments: Patient Position: Sitting; Cuff Location: Left Arm; Cuff Size: Standard BP Diastolic 80 mm[Hg] Comments: Patient Position: Sitting; Cuff Location: Left Arm; Cuff Size: Standard Weight 196 lb Height 67 in Body Mass Index Calculated 30.7 kg/m2 Body Surface Area Calculated 2 m2 :52 Pulse 106 /min Comments: Pattern: Regular Respiration Rate 18 /min Comments: Pattern: Unlabored O2 SAT 97 % Comments: Room air BP Systolic 128 mm[Hg] Comments: Patient Position: Sitting; Cuff Location: Left Arm; Cuff Size: Large BP Diastolic 82 mm[Hg] Comments: Patient Position: Sitting; Cuff Location: Left Arm; Cuff Size: Large Weight 190.125 lb Height 67 in Body Mass Index Calculated 29.78 kg/m2 Body Surface Area Calculated 1.98 m2 :18 Pulse 96 /min Comments: Pattern: Regular Respiration Rate 18 /min Comments: Pattern: Unlabored O2 SAT 97 % Comments: Room air BP Systolic 138 mm[Hg] Comments: Patient Position: Standing; Cuff Location: Left Arm; Cuff Size: Large BP Diastolic 80 mm[Hg] Comments: Patient Position: Standing; Cuff Location: Left Arm; Cuff Size: Large Weight 191.25 lb Height 67 in Body Mass Index Calculated 29.95 kg/m2 Body Surface Area Calculated 1.98 m2 :33 Pulse 79 /min Comments: Pattern: Regular Respiration Rate 18 /min Comments: Pattern: Unlabored O2 SAT 97 % Comments: Room air BP Systolic 138 mm[Hg] Comments: Patient Position: Sitting; Cuff Location: Left Arm; Cuff Size: Large BP Diastolic 78 mm[Hg] Comments: Patient Position: Sitting; Cuff Location: Left Arm; Cuff Size: Large Weight 191.25 lb Height 67 in Body Mass Index Calculated 29.95 kg/m2 Body Surface Area Calculated 1.98 m2 :10 Pulse 72 /min Comments: Pattern: Regular Respiration Rate 18 /min Comments: Pattern: Unlabored O2 SAT 97 % Comments: Room air BP Systolic 118 mm[Hg] Comments: Patient Position: Sitting; Cuff Location: Left Arm; Cuff Size: Large BP Diastolic 82 mm[Hg] Comments: Patient Position: Sitting; Cuff Location: Left Arm; Cuff Size: Large Weight 188.25 lb Height 67 in Body Mass Index Calculated 29.48 kg/m2 Body Surface Area Calculated 1.97 m2 :54 Temperature 98 f Comments: Method: Oral Pulse 99 /min Comments: Pattern: Regular Respiration Rate 18 /min Comments: Pattern: Unlabored O2 SAT 97 % Comments: Room air BP Systolic 128 mm[Hg] Comments: Patient Position: Sitting; Cuff Location: Left Arm; Cuff Size: Large BP Diastolic 86 mm[Hg] Comments: Patient Position: Sitting; Cuff Location: Left Arm; Cuff Size: Large Weight 183.125 lb Height 67 in Body Mass Index Calculated 28.68 kg/m2 Body Surface Area Calculated 1.95 m2 :35 Pulse 82 /min Comments: Pattern: Regular Respiration Rate 18 /min Comments: Pattern: Unlabored O2 SAT 98 % Comments: Room air BP Systolic 140 mm[Hg] Comments: Patient Position: Sitting; Cuff Location: Left Arm; Cuff Size: Large BP Diastolic 88 mm[Hg] Comments: Patient Position: Sitting; Cuff Location: Left Arm; Cuff Size: Large Weight 186.25 lb Height 67 in Body Mass Index Calculated 29.17 kg/m2 Body Surface Area Calculated 1.96 m2 :59 Temperature 97.1 f Comments: Method: Oral Pulse 62 /min Comments: Pattern: Regular Respiration Rate 16 /min Comments: Pattern: Unlabored O2 SAT 98 % Comments: Room air BP Systolic 116 mm[Hg] Comments: Patient Position: Sitting; Cuff Location: Left Arm; Cuff Size: Standard BP Diastolic 78 mm[Hg] Comments: Patient Position: Sitting; Cuff Location: Left Arm; Cuff Size: Standard Weight 178.5625 lb Height 67 in Body Mass Index Calculated 27.97 kg/m2 Body Surface Area Calculated 1.93 m2 :43 Temperature 98.5 f Pulse 88 /min Comments: Pattern: Regular Respiration Rate 16 /min Comments: Pattern: Unlabored O2 SAT 97 % Comments: Room air BP Systolic 128 mm[Hg] Comments: Patient Position: Sitting; Cuff Location: Left Arm; Cuff Size: Standard BP Diastolic 82 mm[Hg] Comments: Patient Position: Sitting; Cuff Location: Left Arm; Cuff Size: Standard Weight 178.125 lb Height 67 in Body Mass Index Calculated 27.9 kg/m2 Body Surface Area Calculated 1.93 m2 :33 Pulse 82 /min Comments: Pattern: Regular Respiration Rate 18 /min Comments: Pattern: Unlabored O2 SAT 98 % Comments: Room air BP Systolic 110 mm[Hg] Comments: Patient Position: Sitting; Cuff Location: Left Arm; Cuff Size: Standard BP Diastolic 70 mm[Hg] Comments: Patient Position: Sitting; Cuff Location: Left Arm; Cuff Size: Standard Weight 185.4375 lb Height 67 in Body Mass Index Calculated 29.04 kg/m2 Body Surface Area Calculated 1.96 m2 :21 Temperature 98.2 f Comments: Method: Temporal Pulse 71 /min Comments: Pattern: Regular Respiration Rate 16 /min Comments: Pattern: Unlabored O2 SAT 97 % Comments: Room air BP Systolic 112 mm[Hg] Comments: Patient Position: Sitting; Cuff Location: Left Arm; Cuff Size: Standard BP Diastolic 78 mm[Hg] Comments: Patient Position: Sitting; Cuff Location: Left Arm; Cuff Size: Standard Weight 189 lb Height 67 in Body Mass Index Calculated 29.6 kg/m2 Body Surface Area Calculated 1.97 m2 :32 Temperature 98 f Comments: Method: Oral Pulse 92 /min Comments: Pattern: Regular Respiration Rate 20 /min Comments: Pattern: Unlabored O2 SAT 97 % Comments: Room air BP Systolic 118 mm[Hg] Comments: Patient Position: Sitting; Cuff Location: Left Arm; Cuff Size: Large BP Diastolic 68 mm[Hg] Comments: Patient Position: Sitting; Cuff Location: Left Arm; Cuff Size: Large Weight 197.1875 lb Height 67 in Body Mass Index Calculated 30.88 kg/m2 Body Surface Area Calculated 2.01 m2 :51 Pulse 95 /min Comments: Pattern: Regular Respiration Rate 18 /min Comments: Pattern: Unlabored O2 SAT 97 % Comments: Room air BP Systolic 128 mm[Hg] Comments: Patient Position: Sitting; Cuff Location: Left Arm; Cuff Size: Standard BP Diastolic 82 mm[Hg] Comments: Patient Position: Sitting; Cuff Location: Left Arm; Cuff Size: Standard Weight 193.5625 lb Height 67 in Body Mass Index Calculated 30.32 kg/m2 Body Surface Area Calculated 1.99 m2 :19 Temperature 98.1 f Comments: Method: Oral Pulse 88 /min Comments: Pattern: Regular Respiration Rate 18 /min Comments: Pattern: Unlabored O2 SAT 96 % Comments: Room air BP Systolic 138 mm[Hg] Comments: Patient Position: Sitting; Cuff Location: Left Arm; Cuff Size: Large BP Diastolic 78 mm[Hg] Comments: Patient Position: Sitting; Cuff Location: Left Arm; Cuff Size: Large Weight 193.25 lb Height 67 in Body Mass Index Calculated 30.27 kg/m2 Body Surface Area Calculated 1.99 m2 :25 Pulse 98 /min Comments: Pattern: Regular Respiration Rate 18 /min Comments: Pattern: Unlabored O2 SAT 97 % Comments: Room air BP Systolic 122 mm[Hg] Comments: Patient Position: Sitting; Cuff Location: Left Arm; Cuff Size: Large BP Diastolic 80 mm[Hg] Comments: Patient Position: Sitting; Cuff Location: Left Arm; Cuff Size: Large Weight 193.5 lb Height 67 in Body Mass Index Calculated 30.31 kg/m2 Body Surface Area Calculated 1.99 m2 :06 Pulse 60 /min Comments: Pattern: Regular Respiration Rate 18 /min Comments: Pattern: Unlabored BP Systolic 120 mm[Hg] Comments: Patient Position: Sitting; Cuff Location: Left Arm; Cuff Size: Large BP Diastolic 70 mm[Hg] Comments: Patient Position: Sitting; Cuff Location: Left Arm; Cuff Size: Large Weight 201.25 lb Height 67 in Body Mass Index Calculated 31.52 kg/m2 Body Surface Area Calculated 2.03 m2 :25 Pulse 91 /min Comments: Pattern: Regular Respiration Rate 18 /min Comments: Pattern: Unlabored O2 SAT 97 % Comments: Room air BP Systolic 128 mm[Hg] Comments: Patient Position: Sitting; Cuff Location: Left Arm; Cuff Size: Large BP Diastolic 82 mm[Hg] Comments: Patient Position: Sitting; Cuff Location: Left Arm; Cuff Size: Large Weight 201.25 lb Height 67 in Body Mass Index Calculated 31.52 kg/m2 Body Surface Area Calculated 2.03 m2 :34 Temperature 97.3 f Comments: Method: Oral Pulse 80 /min Comments: Pattern: Regular Respiration Rate 20 /min Comments: Pattern: Unlabored O2 SAT 98 % Comments: Room air BP Systolic 120 mm[Hg] Comments: Patient Position: Sitting; Cuff Location: Left Arm; Cuff Size: Large BP Diastolic 80 mm[Hg] Comments: Patient Position: Sitting; Cuff Location: Left Arm; Cuff Size: Large Weight 201.125 lb Height 67 in Body Mass Index Calculated 31.5 kg/m2 Body Surface Area Calculated 2.03 m2 :10 Pulse 90 /min Comments: Pattern: Regular O2 SAT 98 % Comments: Room air BP Systolic 120 mm[Hg] Comments: Patient Position: Sitting; Cuff Location: Left Arm; Cuff Size: Standard BP Diastolic 80 mm[Hg] Comments: Patient Position: Sitting; Cuff Location: Left Arm; Cuff Size: Standard Weight 199.25 lb Height 67 in Body Mass Index Calculated 31.21 kg/m2 Body Surface Area Calculated 2.02 m2 :03 Temperature 99.8 f Comments: Method: Temporal Pulse 80 /min Comments: Pattern: Regular Respiration Rate 18 /min Comments: Pattern: Unlabored O2 SAT 99 % Comments: Room air BP Systolic 118 mm[Hg] Comments: Patient Position: Sitting; Cuff Location: Left Arm; Cuff Size: Standard BP Diastolic 70 mm[Hg] Comments: Patient Position: Sitting; Cuff Location: Left Arm; Cuff Size: Standard Weight 199.25 lb Height 67 in Body Mass Index Calculated 31.21 kg/m2 Body Surface Area Calculated 2.02 m2 :11 Temperature 98.8 f Comments: Method: Oral Pulse 84 /min Comments: Pattern: Regular Respiration Rate 20 /min Comments: Pattern: Unlabored BP Systolic 124 mm[Hg] Comments: Patient Position: Sitting; Cuff Location: Left Arm; Cuff Size: Large BP Diastolic 82 mm[Hg] Comments: Patient Position: Sitting; Cuff Location: Left Arm; Cuff Size: Large Weight 199.25 lb Height 67 in Body Mass Index Calculated 31.21 kg/m2 Body Surface Area Calculated 2.02 m2 :46 Temperature 99.4 f Comments: Method: Oral Pulse 94 /min Comments: Pattern: Regular O2 SAT 98 % Comments: Room air BP Systolic 142 mm[Hg] Comments: Patient Position: Sitting; Cuff Location: Left Arm; Cuff Size: Standard BP Diastolic 82 mm[Hg] Comments: Patient Position: Sitting; Cuff Location: Left Arm; Cuff Size: Standard Weight 199.25 lb Height 67 in Body Mass Index Calculated 31.21 kg/m2 Body Surface Area Calculated 2.02 m2 :08 Temperature 98 f Comments: Method: Oral Pulse 68 /min Comments: Pattern: Regular Respiration Rate 20 /min Comments: Pattern: Unlabored BP Systolic 120 mm[Hg] Comments: Patient Position: Sitting; Cuff Location: Left Arm; Cuff Size: Large BP Diastolic 80 mm[Hg] Comments: Patient Position: Sitting; Cuff Location: Left Arm; Cuff Size: Large Weight 199.25 lb Height 67 in Body Mass Index Calculated 31.21 kg/m2 Body Surface Area Calculated 2.02 m2 :27 Temperature 98.4 f Comments: Method: Oral Pulse 64 /min Comments: Pattern: Regular Respiration Rate 20 /min Comments: Pattern: Unlabored BP Systolic 122 mm[Hg] Comments: Patient Position: Sitting; Cuff Location: Left Arm; Cuff Size: Large BP Diastolic 80 mm[Hg] Comments: Patient Position: Sitting; Cuff Location: Left Arm; Cuff Size: Large Weight 196.25 lb Height 67 in Body Mass Index Calculated 30.74 kg/m2 Body Surface Area Calculated 2.01 m2 :12 Pulse 60 /min Comments: Pattern: Regular Respiration Rate 20 /min Comments: Pattern: Unlabored BP Systolic 120 mm[Hg] Comments: Patient Position: Sitting; Cuff Location: Left Arm; Cuff Size: Large BP Diastolic 70 mm[Hg] Comments: Patient Position: Sitting; Cuff Location: Left Arm; Cuff Size: Large Weight 196.0625 lb Height 67 in Body Mass Index Calculated 30.71 kg/m2 Body Surface Area Calculated 2.01 m2 :00 Pulse 64 /min Comments: Pattern: Regular Respiration Rate 18 /min Comments: Pattern: Unlabored BP Systolic 122 mm[Hg] Comments: Patient Position: Sitting; Cuff Location: Left Arm; Cuff Size: Large BP Diastolic 70 mm[Hg] Comments: Patient Position: Sitting; Cuff Location: Left Arm; Cuff Size: Large Weight 202.0625 lb Height 67 in Body Mass Index Calculated 31.65 kg/m2 Body Surface Area Calculated 2.03 m2 :02 Pulse 80 /min Comments: Pattern: Regular Respiration Rate 16 /min Comments: Pattern: Unlabored BP Systolic 118 mm[Hg] Comments: Patient Position: Sitting; Cuff Location: Left Arm; Cuff Size: Large BP Diastolic 72 mm[Hg] Comments: Patient Position: Sitting; Cuff Location: Left Arm; Cuff Size: Large Weight 205.125 lb Height 67 in Body Mass Index Calculated 32.13 kg/m2 Body Surface Area Calculated 2.04 m2 :55 Temperature 96.7 f Comments: Method: Oral Pulse 72 /min Comments: Pattern: Regular Respiration Rate 16 /min Comments: Pattern: Unlabored BP Systolic 130 mm[Hg] Comments: Patient Position: Sitting; Cuff Location: Left Arm; Cuff Size: Large BP Diastolic 76 mm[Hg] Comments: Patient Position: Sitting; Cuff Location: Left Arm; Cuff Size: Large Weight 205.125 lb Height 67 in Body Mass Index Calculated 32.13 kg/m2 Body Surface Area Calculated 2.04 m2 :56 Temperature 98 f Comments: Method: Oral Pulse 72 /min Comments: Pattern: Regular Respiration Rate 18 /min Comments: Pattern: Unlabored BP Systolic 162 mm[Hg] Comments: Patient Position: Sitting; Cuff Location: Left Arm; Cuff Size: Standard BP Diastolic 100 mm[Hg] Comments: Patient Position: Sitting; Cuff Location: Left Arm; Cuff Size: Standard Weight 205.125 lb Height 67 in Body Mass Index Calculated 32.13 kg/m2 Body Surface Area Calculated 2.04 m2 :42 Pulse 64 /min Comments: Pattern: Regular Respiration Rate 20 /min Comments: Pattern: Unlabored BP Systolic 148 mm[Hg] Comments: Patient Position: Sitting; Cuff Location: Left Arm; Cuff Size: Large BP Diastolic 98 mm[Hg] Comments: Patient Position: Sitting; Cuff Location: Left Arm; Cuff Size: Large Weight 195.25 lb Height 67 in Body Mass Index Calculated 30.58 kg/m2 Body Surface Area Calculated 2 m2 :48 Temperature 97.8 f Comments: Method: Oral Pulse 84 /min Comments: Pattern: Regular Respiration Rate 17 /min Comments: Pattern: Unlabored BP Systolic 142 mm[Hg] Comments: Patient Position: Sitting; Cuff Location: Left Arm; Cuff Size: Standard BP Diastolic 80 mm[Hg] Comments: Patient Position: Sitting; Cuff Location: Left Arm; Cuff Size: Standard Weight 197.1875 lb Height 67 in Body Mass Index Calculated 30.88 kg/m2 Body Surface Area Calculated 2.01 m2 :09 Pulse 60 /min Comments: Pattern: Regular Respiration Rate 20 /min Comments: Pattern: Unlabored BP Systolic 124 mm[Hg] Comments: Patient Position: Sitting; Cuff Location: Left Arm; Cuff Size: Large BP Diastolic 82 mm[Hg] Comments: Patient Position: Sitting; Cuff Location: Left Arm; Cuff Size: Large Weight 197.1875 lb Height 67 in Body Mass Index Calculated 30.88 kg/m2 Body Surface Area Calculated 2.01 m2 :50 Temperature 97.9 f Comments: Method: Oral Pulse 78 /min Comments: Pattern: Regular BP Systolic 138 mm[Hg] Comments: Patient Position: Sitting; Cuff Location: Left Arm; Cuff Size: Standard BP Diastolic 84 mm[Hg] Comments: Patient Position: Sitting; Cuff Location: Left Arm; Cuff Size: Standard Weight 192 lb :19 Pulse 60 /min Comments: Pattern: Regular Respiration Rate 16 /min Comments: Pattern: Unlabored BP Systolic 142 mm[Hg] Comments: Patient Position: Sitting; Cuff Location: Left Arm; Cuff Size: Large BP Diastolic 88 mm[Hg] Comments: Patient Position: Sitting; Cuff Location: Left Arm; Cuff Size: Large Weight 192 lb :37 Pulse 76 /min Comments: Pattern: Regular Respiration Rate 16 /min Comments: Pattern: Unlabored BP Systolic 122 mm[Hg] Comments: Patient Position: Sitting; Cuff Location: Left Arm; Cuff Size: Large BP Diastolic 88 mm[Hg] Comments: Patient Position: Sitting; Cuff Location: Left Arm; Cuff Size: Large Weight 192 lb :02 Temperature 97.1 f Comments: Method: Oral Pulse 72 /min Comments: Pattern: Regular Respiration Rate 16 /min Comments: Pattern: Unlabored BP Systolic 112 mm[Hg] Comments: Patient Position: Sitting; Cuff Location: Left Arm; Cuff Size: Standard BP Diastolic 80 mm[Hg] Comments: Patient Position: Sitting; Cuff Location: Left Arm; Cuff Size: Standard Weight 193.125 lb :06 Temperature 99.8 f Comments: Method: Oral Pulse 72 /min Comments: Pattern: Regular Respiration Rate 20 /min Comments: Pattern: Unlabored BP Systolic 138 mm[Hg] Comments: Patient Position: Standing; Cuff Location: Left Arm; Cuff Size: Large BP Diastolic 94 mm[Hg] Comments: Patient Position: Standing; Cuff Location: Left Arm; Cuff Size: Large Weight 198 lb Height 67 in Body Mass Index Calculated 31.01 kg/m2 Body Surface Area Calculated 2.01 m2 :48 Temperature 96.5 f Comments: Method: Oral Pulse 66 /min Comments: Pattern: Regular Respiration Rate 18 /min Comments: Pattern: Unlabored BP Systolic 128 mm[Hg] Comments: Patient Position: Sitting; Cuff Location: Left Arm; Cuff Size: Standard BP Diastolic 78 mm[Hg] Comments: Patient Position: Sitting; Cuff Location: Left Arm; Cuff Size: Standard Weight 198 lb Height 67 in Body Mass Index Calculated 31.01 kg/m2 Body Surface Area Calculated 2.01 m2 :21 Temperature 98 f Comments: Method: Oral Pulse 68 /min Comments: Pattern: Regular Respiration Rate 18 /min Comments: Pattern: Unlabored BP Systolic 116 mm[Hg] Comments: Patient Position: Sitting; Cuff Location: Left Arm; Cuff Size: Large BP Diastolic 76 mm[Hg] Comments: Patient Position: Sitting; Cuff Location: Left Arm; Cuff Size: Large Weight 198 lb Height 67 in Body Mass Index Calculated 31.01 kg/m2 Body Surface Area Calculated 2.01 m2 Head Circumference 0.00 cm :07 Temperature 98.7 f Comments: Method: Oral Pulse 72 /min Comments: Pattern: Regular Respiration Rate 16 /min Comments: Pattern: Unlabored BP Systolic 132 mm[Hg] Comments: Patient Position: Supine; Cuff Location: Left Arm; Cuff Size: Standard BP Diastolic 84 mm[Hg] Comments: Patient Position: Supine; Cuff Location: Left Arm; Cuff Size: Standard Weight 199.5 lb Height 67 in Body Mass Index Calculated 31.25 kg/m2 Body Surface Area Calculated 2.02 m2 Head Circumference 0.00 cm :48 Temperature 99.1 f Comments: Method: Oral Pulse 72 /min Comments: Pattern: Regular Respiration Rate 16 /min Comments: Pattern: Unlabored BP Systolic 150 mm[Hg] Comments: Patient Position: Supine; Cuff Location: Left Arm; Cuff Size: Standard BP Diastolic 90 mm[Hg] Comments: Patient Position: Supine; Cuff Location: Left Arm; Cuff Size: Standard Weight 199 lb Height 67 in Body Mass Index Calculated 31.17 kg/m2 Body Surface Area Calculated 2.02 m2 Head Circumference 0.00 cm :29 Temperature 97.9 f Comments: Method: Oral Pulse 64 /min Comments: Pattern: Regular Respiration Rate 18 /min Comments: Pattern: Unlabored BP Systolic 126 mm[Hg] Comments: Patient Position: Sitting; Cuff Location: Left Arm; Cuff Size: Large BP Diastolic 78 mm[Hg] Comments: Patient Position: Sitting; Cuff Location: Left Arm; Cuff Size: Large Weight 195.25 lb Height 0 in Head Circumference 0.00 cm :00 Temperature 99 f Comments: Method: Oral Pulse 90 /min Comments: Pattern: Regular Respiration Rate 16 /min Comments: Pattern: Unlabored BP Systolic 110 mm[Hg] Comments: Patient Position: Sitting; Cuff Location: Left Arm; Cuff Size: Large BP Diastolic 74 mm[Hg] Comments: Patient Position: Sitting; Cuff Location: Left Arm; Cuff Size: Large Weight 192.5625 lb Height 0 in Head Circumference 0.00 cm :28 Temperature 98.6 f Comments: Method: Oral Pulse 84 /min Comments: Pattern: Regular Respiration Rate 18 /min Comments: Pattern: Unlabored BP Systolic 112 mm[Hg] Comments: Patient Position: Sitting; Cuff Location: Right Arm; Cuff Size: Large BP Diastolic 64 mm[Hg] Comments: Patient Position: Sitting; Cuff Location: Right Arm; Cuff Size: Large Weight 0 lb Height 67 in Head Circumference 0.00 cm :16 Temperature 99.4 f Comments: Method: Oral Pulse 80 /min Comments: Pattern: Regular Respiration Rate 16 /min Comments: Pattern: Unlabored BP Systolic 128 mm[Hg] Comments: Patient Position: Sitting; Cuff Location: Right Arm; Cuff Size: Large BP Diastolic 82 mm[Hg] Comments: Patient Position: Sitting; Cuff Location: Right Arm; Cuff Size: Large Weight 0 lb Height 0 in Head Circumference 0.00 cm Results Date Description Value Details [id number] HGB A1C (06363) Comments: PATIENT NOT FASTINGPERFORMED BY: [facility] Medevy5699 [facility] [id number] Hemoglobin A1c 7.0 % (Abnormal) Range: 4.8-5.6 Comments: . Prediabetes: 5.7 - 6.4 Diabetes: >6.4 Glycemic control for adults with diabetes: <7.0 :00 CBC W/Diff, Automated Comments: [facility] [address] [place], [place], [id number] Absolute Lymph 2.33 {X10_3/ul} (Normal) Range: 0.83-4.51 Absolute Neut 5.9 {X10_3/uL} (Normal) Range: 2.0-7.7 IM GRAN % 0.200 % (Normal) Range: 0.0-0.9 Comments: IG% - Immature Granulocytes (promyelocytes, myelocytes andmetamyelocytes) > 1% indicates that a LEFT SHIFT is Present. BASO% 0.1 % (Normal) Range: 0-1 EO% 2.6 % (Normal) Range: 0-5 MONO% 8.9 % (Normal) Range: 0-10 LY% 25.1 % (Normal) Range: 19-41 NEUT% 63.1 % (Normal) Range: 47-70 MPV 9.5 fL (Normal) Range: 6.2-12.0 PLT 312 K/mm3 (Normal) Range: 150-450 RDW SD 42.8 fL (Normal) Range: 35.1-43.9 RDW CV 13.0 % (Normal) Range: 11.6-14.6 MCHC 33.9 {g/gl} (Normal) Range: 32-36 MCH 30.9 pg (Normal) Range: 27.0-32.0 MCV 91.1 fL (Normal) Range: 81-99 HCT 45.1 % (Normal) Range: 37-47 HGB 15.3 g/dL (Abnormal) Range: 12.0-15.0 RBC 4.95 {M/mm3} (Normal) Range: 4.2-5.4 WBC 9.3 K/mm3 (Normal) Range: 4.4-11.0 52-Frf-94155:00 Comprehensive Metabolic Profil Comments: [facility] [address] [place], [address] GAP 10 (Normal) Range: 5-15 CO2 24.0 mmol/L (Normal) Range: 21.0-32.0 CL 104 mmol/L (Normal) Range: 98-107 K 3.4 mmol/L (Abnormal) Range: 3.5-5.1 NA 138 mmol/L (Normal) Range: 136-145 T BILI 0.50 mg/dL (Normal) Range: 0.20-1.00 ALT 29 U/L (Normal) Range: 13-56 ALK P 73 U/L (Normal) Range: 45-117 AST 24 U/L (Normal) Range: 15-37 CA 8.8 mg/dL (Normal) Range: 8.5-10.1 A/G 0.8 {RATIO} (Abnormal) Range: 0.9-2.4 GLOB 4.6 g/dL (Abnormal) Range: 2.2-4.2 ALB 3.5 g/dL (Normal) Range: 3.2-5.0 T PROT 8.1 g/dL (Normal) Range: 6.4-8.2 BUN/CRE 11.8 {RATIO} (Normal) Range: 10-20 Estimated CRCL 46.95 ml/min (Normal) EST GFR - AA 56 mL/min (Abnormal) Comments: GFR Calc EST GFR 46 mL/min (Abnormal) Comments: Non- GFR Calc CREAT,SERUM 1.27 mg/dL (Abnormal) Range: 0.55-1.02 Comments: The validity of the calculated GFR AND GFRAA in patients over70 years has not been determined. Clinical correlation isessential. BUN 15 mg/dL (Normal) Range: 7-18 GLU 214 mg/dL (Abnormal) Range: 74-106 Comments: Glucose result greater than or equal to 200 mg/dLsuggests DIABETES MELLITUS per A.D.A. criteria.Please note revised GLUCOSE reference range nlgivewcb04/02/2018. [id number] CBC W/Diff, Automated Comments: DR. HUTCHISON ORDERED CMP CBCDKSHIRA SHEPHERD ORDERED CBCD [facility] [address] [place], [address] Absolute Lymph 2.63 {X10_3/ul} (Normal) Range: 0.83-4.51 Absolute Neut 3.1 {X10_3/uL} (Normal) Range: 2.0-7.7 IM GRAN % 0.200 % (Normal) Range: 0.0-0.9 Comments: IG% - Immature Granulocytes (promyelocytes, myelocytes andmetamyelocytes) > 1% indicates that a LEFT SHIFT is Present. BASO% 0.3 % (Normal) Range: 0-1 EO% 2.8 % (Normal) Range: 0-5 MONO% 7.8 % (Normal) Range: 0-10 LY% 40.8 % (Normal) Range: 19-41 NEUT% 48.1 % (Normal) Range: 47-70 MPV 9.7 fL (Normal) Range: 6.2-12.0 PLT 278 K/mm3 (Normal) Range: 150-450 RDW SD 40.9 fL (Normal) Range: 35.1-43.9 RDW CV 12.6 % (Normal) Range: 11.6-14.6 MCHC 32.5 {g/gl} (Normal) Range: 32-36 MCH 30.0 pg (Normal) Range: 27.0-32.0 MCV 92.3 fL (Normal) Range: 81-99 HCT 36.9 % (Abnormal) Range: 37-47 HGB 12.0 g/dL (Normal) Range: 12.0-15.0 RBC 4.00 {M/mm3} (Abnormal) Range: 4.2-5.4 WBC 6.5 K/mm3 (Normal) Range: 4.4-11.0 [id number]-[id number] Comprehensive Metabolic Profil Comments: DR. HUTCHISON ORDERED CMP CBCDKSHIRA SHEPHERD ORDERED CBCD [facility] [address] [place], [place], [id number] GAP 9 (Normal) Range: 5-15 CO2 27.0 mmol/L (Normal) Range: 21.0-32.0 CL 105 mmol/L (Normal) Range: 98-107 K 3.9 mmol/L (Normal) Range: 3.5-5.1 NA 141 mmol/L (Normal) Range: 136-145 T BILI 0.60 mg/dL (Normal) Range: 0.20-1.00 ALT 37 U/L (Normal) Range: 13-56 ALK P 64 U/L (Normal) Range: 45-117 AST 33 U/L (Normal) Range: 15-37 CA 9.0 mg/dL (Normal) Range: 8.5-10.1 A/G 0.8 {RATIO} (Abnormal) Range: 0.9-2.4 GLOB 4.3 g/dL (Abnormal) Range: 2.2-4.2 ALB 3.5 g/dL (Normal) Range: 3.2-5.0 T PROT 7.8 g/dL (Normal) Range: 6.4-8.2 BUN/CRE 10.5 {RATIO} (Normal) Range: 10-20 EST GFR - AA 63 mL/min (Normal) Comments: GFR Calc EST GFR 52 mL/min (Abnormal) Comments: Non- GFR Calc CREAT,SERUM 1.14 mg/dL (Abnormal) Range: 0.55-1.02 Comments: The validity of the calculated GFR AND GFRAA in patients over70 years has not been determined. Clinical correlation isessential. BUN 12 mg/dL (Normal) Range: 7-18 GLU 153 mg/dL (Abnormal) Range: 74-106 Comments: Fasting Glucose result greater than or equal to 126 mg/dLsuggests DIABETES MELLITUS per A.D.A. criteria.Please note revised GLUCOSE reference range sncgzzagq10/02/2018. [id number] Prothrombin Time w/INR Comments: DR. HUTCHISON ORDERED CMP CBCDKSHIRA SHEPHERD ORDERED CBCD [facility] [address] [place], [place], [address] INR 1.0 (Normal) PROTIME 13.5 s (Normal) Range: 11.7-14.9 [id number] PT (PROTHROMBIN TIME) ([id number]) Comments: PATIENT NOT FASTINGPERFORMED BY: [facility]CoB[facility] for RehabilitationLhhqco0336 [facility] [id number] INR 1.0 (Normal) Range: 0.8-1.2 Comments: Reference interval is for non-anticoagulated patients. . Suggested INR therapeutic range for Vitamin K anta gonist therapy: Standard Dose (moderate intensity therapeutic range): 2.0 - 3.0 Higher intensity therapeutic range 2.5 - 3.5 Prothrombin Time 10.5 {sec} (Normal) Range: 9.1-12.0 57-Zpf-[id number]:21 CBC & PLATELETS (AUTO) Comments: PATIENT NOT FASTINGPERFORMED BY: [facility] [address] [place] [id number] ([id number]) Platelets 288 {x10E3/uL} (Normal) Range: 150-379 RDW 13.6 % (Normal) Range: 12.3-15.4 MCHC 33.1 g/dL (Normal) Range: 31.5-35.7 MCH 30.0 pg (Normal) Range: 26.6-33.0 MCV 91 fL (Normal) Range: 79-97 Hematocrit 40.5 % (Normal) Range: 34.0-46.6 Hemoglobin 13.4 g/dL (Normal) Range: 11.1-15.9 RBC 4.47 {x10E6/uL} (Normal) Range: 3.77-5.28 WBC 6.7 {x10E3/uL} (Normal) Range: 3.4-10.8 71-Iuh-[id number]:35 Basic Metabolic Profile (BMP) Comments: [facility] [address] [place], [address] GAP 9 (Normal) Range: 5-15 CO2 29.0 mmol/L (Normal) Range: 21.0-32.0 CL 104 mmol/L (Normal) Range: 98-107 K 3.9 mmol/L (Normal) Range: 3.5-5.1 NA 142 mmol/L (Normal) Range: 136-145 CA 9.3 mg/dL (Normal) Range: 8.5-10.1 BUN/CRE 13.9 {RATIO} (Normal) Range: 10-20 Estimated CRCL 55.22 ml/min (Normal) EST GFR - AA 67 mL/min (Normal) Comments: GFR Calc EST GFR 55 mL/min (Abnormal) Comments: Non- GFR Calc CREAT,SERUM 1.08 mg/dL (Abnormal) Range: 0.55-1.02 Comments: The validity of the calculated GFR AND GFRAA in patients over70 years has not been determined. Clinical correlation isessential. BUN 15 mg/dL (Normal) Range: 7-18 GLU 203 mg/dL (Abnormal) Range: 74-106 Comments: Glucose result greater than or equal to 200 mg/dLsuggests DIABETES MELLITUS per A.D.A. criteria.Please note revised GLUCOSE reference range zofkezubx14/02/2018. [id number]-Imn-[id number]:11 Bedside Glucose Comments: [facility] LaboratoryPoint [address] [place] [address] BEDSIDE GLU 203 mg/dL (Abnormal) Range: 70-110 Comments: MANAGEMENT OF PATIENT CARE PER NURSING PROTOCOL [id number]-[id number]:23 CBC W/Diff, Automated Comments: [facility] [address] [place], [id number] Absolute Lymph 2.83 {X10_3/ul} (Normal) Range: 0.83-4.51 Absolute Neut 3.3 {X10_3/uL} (Normal) Range: 2.0-7.7 IM GRAN % 0.300 % (Normal) Range: 0.0-0.9 Comments: IG% - Immature Granulocytes (promyelocytes, myelocytes andmetamyelocytes) > 1% indicates that a LEFT SHIFT is Present. BASO% 0.4 % (Normal) Range: 0-1 EO% 1.4 % (Normal) Range: 0-5 MONO% 8.7 % (Normal) Range: 0-10 LY% 41.0 % (Normal) Range: 19-41 NEUT% 48.2 % (Normal) Range: 47-70 MPV 9.4 fL (Normal) Range: 6.2-12.0 PLT 291 K/mm3 (Normal) Range: 150-450 RDW SD 52.2 fL (Abnormal) Range: 35.1-43.9 RDW CV 16.2 % (Abnormal) Range: 11.6-14.6 MCHC 32.1 {g/gl} (Normal) Range: 32-36 MCH 28.7 pg (Normal) Range: 27.0-32.0 MCV 89.5 fL (Normal) Range: 81-99 HCT 39.3 % (Normal) Range: 37-47 HGB 12.6 g/dL (Normal) Range: 12.0-15.0 RBC 4.39 {M/mm3} (Normal) Range: 4.2-5.4 WBC 6.9 K/mm3 (Normal) Range: 4.4-11.0 35-Etj-[id number]:23 Comprehensive Metabolic Profil Comments: [facility] [address] [place], [place], [address] GAP 9 (Normal) Range: 5-15 CO2 29.0 mmol/L (Normal) Range: 21.0-32.0 CL 102 mmol/L (Normal) Range: 98-107 K 3.7 mmol/L (Normal) Range: 3.5-5.1 NA 140 mmol/L (Normal) Range: 136-145 T BILI 0.30 mg/dL (Normal) Range: 0.20-1.00 ALT 26 U/L (Normal) Range: 13-56 ALK P 61 U/L (Normal) Range: 45-117 AST 18 U/L (Normal) Range: 15-37 CA 9.1 mg/dL (Normal) Range: 8.5-10.1 A/G 0.8 {RATIO} (Abnormal) Range: 0.9-2.4 GLOB 4.4 g/dL (Abnormal) Range: 2.2-4.2 ALB 3.5 g/dL (Normal) Range: 3.2-5.0 T PROT 7.9 g/dL (Normal) Range: 6.4-8.2 BUN/CRE 12.6 {RATIO} (Normal) Range: 10-20 EST GFR - AA 65 mL/min (Normal) Comments: GFR Calc EST GFR 54 mL/min (Abnormal) Comments: Non- GFR Calc CREAT,SERUM 1.11 mg/dL (Abnormal) Range: 0.55-1.02 Comments: The validity of the calculated GFR AND GFRAA in patients over70 years has not been determined. Clinical correlation isessential. BUN 14 mg/dL (Normal) Range: 7-18 GLU 263 mg/dL (Abnormal) Range: 74-106 Comments: Glucose result greater than or equal to 200 mg/dLsuggests DIABETES MELLITUS per A.D.A. criteria.Please note revised GLUCOSE reference range ietxcoktn19/02/2018. [id number] HEPATIC FUNCTION PANEL Comments: PATIENT WAS FASTINGPERFORMED BY: [facility]CoB[facility] for RehabilitationVgscwk7252 [facility] [id number] ([id number]) ALT (SGPT) 22 [iU]/L (Normal) Range: 0-32 AST (SGOT) 27 [iU]/L (Normal) Range: 0-40 Alkaline Phosphatase 58 [iU]/L (Normal) Range: 39-117 Bilirubin, Direct 0.12 mg/dL (Normal) Range: 0.00-0.40 Bilirubin, Total 0.5 mg/dL (Normal) Range: 0.0-1.2 Albumin 4.4 g/dL (Normal) Range: 3.5-5.5 Protein, Total 7.6 g/dL (Normal) Range: 6.0-8.5 17-Hon-203088:01 Lipid Panel (13318) Comments: PATIENT WAS FASTINGPERFORMED BY: [facility] [id number] LDL/HDL Ratio 2.9 {ratio} (Normal) Range: 0.0-3.2 Comments: LDL/HDL Ratio Men Women 1/2 Avg.Risk 1.0 1.5 Av g.Risk 3.6 3.2 2X Avg.Risk 6.2 5.0 3X Avg.Risk 8.0 6.1 LDL Cholesterol Calc 116 mg/dL (Abnormal) Range: 0-99 VLDL Cholesterol Daniel 44 mg/dL (Abnormal) Range: 5-40 HDL Cholesterol 40 mg/dL (Normal) Triglycerides 220 mg/dL (Abnormal) Range: 0-149 Cholesterol, Total 200 mg/dL (Abnormal) Range: 100-199 4-Evc-177832:04 Microscopic Examination Comments: PATIENT WAS FASTINGPERFORMED BY: [employer] [facility] [id number] Bacteria Few (Normal) Mucus Threads Present (Normal) Epithelial Cells (non renal) 0-10 {/hpf} (Normal) Range: 0 - 10 RBC 0-2 {/hpf} (Normal) Range: 0 - 2 WBC 6-10 {/hpf} (Abnormal) Range: 0 - 5 [id number]-[id number]:04 Protein Electro, Random Urine Comments: PATIENT WAS FASTINGPERFORMED BY: [employer]6370 [facility] [id number] Please note: SPRCS (Normal) Comments: Protein electrophoresis scan will follow via computer, mail, orcourier delivery. M-Sukhwinder, % Comment: % (Normal) Comments: ASYMMETRICAL GAMMA Gamma Globulin, U 17.8 % (Normal) Beta Globulin, U 19.6 % (Normal) Plyyx-2-Mjvwkhka, U 16.1 % (Normal) Iuwno-8-Xovxpybq, U 5.4 % (Normal) Albumin, U 41.1 % (Normal) Protein,Total,Urine 9.5 mg/dL (Normal) [id number]-[id number]:00 HGB A1C (17173) Comments: do in 3months; PATIENT WAS FASTINGPERFORMED BY: [employer] X[address]u5749 [facility] [id number] Hemoglobin A1c 7.8 % (Abnormal) Range: 4.8-5.6 Comments: . Pre-diabetes: 5.7 - 6.4 Diabetes: >6.4 Glycemic control for adults with diabetes: <7.0 :04 HGB A1C (53489) Comments: PATIENT WAS FASTINGPERFORMED BY: SpreecastBacharach Institute for RehabilitationIvbenc7525 [facility] [id number] Hemoglobin A1c 7.1 % (Abnormal) Range: 4.8-5.6 Comments: . Pre-diabetes: 5.7 - 6.4 Diabetes: >6.4 Glycemic control for adults with diabetes: <7.0 1-Pni-[id number]:04 DCBIB-[id number]-[id number] (38152) Comments: PATIENT WAS FASTINGPERFORMED BY: SpreecastBacharach Institute for RehabilitationSegtvc1593 [facility] [id number] AFP, Serum, Tumor Marker 2.1 ng/mL (Normal) Range: 0.0-8.3 Comments: Aric ECLIA methodology :04 TSH (80490) Comments: PATIENT WAS FASTINGPERFORMED BY: [employer] Ifuvyi2127 [facility] [id number] TSH 3.660 {uIU/mL} (Normal) Range: 0.450-4.500 6-Rkl-[id number]:04 URINALYSIS, W/ MICRO (51385) Comments: PATIENT WAS FASTINGPERFORMED BY: [employer] Crsvdd3514 [facility] [id number] Microscopic Examination See below: (Normal) Comments: Microscopic was indicated and was performed. Nitrite, Urine Negative (Normal) Urobilinogen,Semi-Qn 0.2 mg/dL (Normal) Range: 0.2-1.0 Bilirubin Negative (Normal) Occult Blood Negative (Normal) Ketones Negative (Normal) Glucose Negative (Normal) Protein Negative (Normal) WBC Esterase 1+ (Abnormal) Appearance Clear (Normal) Urine-Color Yellow (Normal) pH 5.0 (Normal) Range: 5.0-7.5 Specific [place] 1.020 (Normal) Range: 1.005-1.030 9-Oec-765571:04 MICROALBUMIN: CREATININE RATIO Comments: PATIENT WAS FASTINGPERFORMED BY: divorce360 [employer] [facility] [id number] ([id number]) AND (57707) Alb/Creat Ratio 8.5 {mg/g_creat} (Normal) Range: 0.0-30.0 Albumin, Urine 11.4 ug/mL (Normal) Creatinine, Urine 134.1 mg/dL (Normal) 5-Gof-102484:04 LIPID PANEL (90189) Comments: PATIENT WAS FASTINGPERFORMED BY: divorce360[facility] for RehabilitationGnmxba2316 [facility] [id number] LDL/HDL Ratio 2.6 {ratio_units} (Normal) Range: 0.0-3.2 Comments: LDL/HDL Ratio Men Women 1/2 Avg.Risk 1.0 1.5 Av g.Risk 3.6 3.2 2X Avg.Risk 6.2 5.0 3X Avg.Risk 8.0 6.1 LDL Cholesterol Calc 135 mg/dL (Abnormal) Range: 0-99 VLDL Cholesterol Daniel 25 mg/dL (Normal) Range: 5-40 HDL Cholesterol 51 mg/dL (Normal) Triglycerides 127 mg/dL (Normal) Range: 0-149 Cholesterol, Total 211 mg/dL (Abnormal) Range: 100-199 4-Eky-740505:04 CALCIFEDIOL (59911) Comments: PATIENT WAS FASTINGPERFORMED BY: divorce360[facility] for RehabilitationUseypk8815 [facility] [id number] Vitamin D, 25-Hydroxy 56.1 ng/mL (Normal) Range: 30.0-100.0 Comments: Vitamin D deficiency has been defined by the [place] of[place] and an Endocrine Society practice guideline as alevel of serum 25-OH vitamin D less than 20 ng/mL (1,2).The Endocrine Society went on to further define vitamin Dinsufficiency as a level between 21 and 29 ng/mL (2).1. IOM ([place] of Medicine). 2010. Dietary reference intakes for calcium and D. Real [place]: The National Academies Press.2. Mekhi MF, Dee Dee HADDAD, Fransisco HERNDON, et al. Evaluation, treatment, and prevention of vitamin D deficiency: an Endocrine Society clinical practice guideline. JCEM. 2010; 96(7):1911-30. 6-Ruy-305648:04 Serum Protein Electrophoresis Comments: PATIENT WAS FASTINGPERFORMED BY: [facility]6370 [facility] [id number] ([facility]) (69874) Please note: SPRCS (Normal) Comments: Protein electrophoresis scan will follow via computer, mail, orcourier delivery. A/G Ratio 0.9 (Normal) Range: 0.7-1.7 Globulin, Total 3.9 g/dL (Normal) Range: 2.2-3.9 M-Sukhwinder Not Observed g/dL (Normal) Gamma Globulin 1.3 g/dL (Normal) Range: 0.4-1.8 Beta Globulin 1.3 g/dL (Normal) Range: 0.7-1.3 Ljevg-1-Kcyldyag 1.1 g/dL (Abnormal) Range: 0.4-1.0 Btpot-3-Oyzfrhxz 0.3 g/dL (Normal) Range: 0.0-0.4 Albumin 3.4 g/dL (Normal) Range: 2.9-4.4 Protein, Total, Serum 7.3 g/dL (Normal) Range: 6.0-8.5 09-Zuj-142223:43 Crystals, Body Fluid Comments: [facility] [address] [place], [address] PATH REV Reviewed (Normal) Comments: Negative for malignant cells.Acute inflammation.A few crystals are oted (mixture of nondescript and calciumpyrophosphate).Clinical correlation necessary.Michelet Bills M.D. 09/26/17 AMENDED REPORT 1011 PATH REV previously reported as: Will follow SOURCE/BF SYNOVIAL (Normal) CRYSTALS/BF CALCIUM PYROPHOS (Normal) 39-Mgq-342478:43 Culture, Body Fluid Comments: [facility] [address] [place], [place], [id number] CUBF See Note (Normal) Comments: List Antibiotics Last 48 Hours? UNKList Antibiotics to be Started? UNKComments: RIGHT KNEEGram StainCentrifuged Specimen? Culture performed on centrifuged specimen Gram Stain 3+ White Blood Cells No organisms seen Body Fluid CultNO GROWTH IN 14 DAYS Cult, AnaerobicNo growth in 5 days. 65-Ylf-982029:43 Synovial Fluid RBC, WBC AND Comments: [facility] [address] [place], [address] Diff PATH COM/SYFL May follow (Normal) MONO 3 % (Normal) LYMPH 12 % (Normal) NEUTROPHIL 85 % (Abnormal) Range: 0-25 SYBF MN WBC% 35.6 % (Normal) SYBF PMN WBC# 8.142 {10_3/ul} (Normal) SYBF PMN WBC% 64.4 % (Normal) SYNOVIAL WBC 12.0580 {10_3uL} (Abnormal) Range: 0.000-0.002 SYNOVIAL RBC 0.002 {10_6/uL} (Abnormal) SYN Tot Cell Ct 12.1780 {10_3_uL} (Abnormal) Range: 0.000-0.000 Comments: This is the Total Number of Nucleated Cell Types in the BodyFluid. SYNOVIAL ELISEO. Cloudy (Normal) SYNOVIAL COLOR Yellow (Normal) SYNOVIAL SOURCE R KNEE (Normal) 0-Xux-865231:51 CBC W/Diff, Automated Comments: [facility] [address] [place], [address] Absolute Lymph 2.59 {X10_3/ul} (Normal) Range: 0.83-4.51 Absolute Neut 7.0 {X10_3/uL} (Normal) Range: 2.0-7.7 IM GRAN % 0.200 % (Normal) Range: 0.0-0.9 Comments: IG% - Immature Granulocytes (promyelocytes, myelocytes andmetamyelocytes) > 1% indicates that a LEFT SHIFT is Present. BASO% 0.3 % (Normal) Range: 0-1 EO% 0.8 % (Normal) Range: 0-5 MONO% 6.6 % (Normal) Range: 0-10 LY% 24.8 % (Normal) Range: 19-41 NEUT% 67.3 % (Normal) Range: 47-70 MPV 9.1 fL (Normal) Range: 6.2-12.0 PLT 405 K/mm3 (Normal) Range: 150-450 RDW SD 41.0 fL (Normal) Range: 35.1-43.9 RDW CV 13.0 % (Normal) Range: 11.6-14.6 MCHC 30.9 {g/gl} (Abnormal) Range: 32-36 MCH 27.1 pg (Normal) Range: 27.0-32.0 MCV 87.7 fL (Normal) Range: 81-99 HCT 39.8 % (Normal) Range: 37-47 HGB 12.3 g/dL (Normal) Range: 12.0-15.0 RBC 4.54 {M/mm3} (Normal) Range: 4.2-5.4 WBC 10.5 K/mm3 (Normal) Range: 4.4-11.0 5-Wzc-671688:51 Comprehensive Metabolic Profil Comments: [facility] [address] [place], [place], [address] GAP 9 (Normal) Range: 5-15 CO2 26.0 mmol/L (Normal) Range: 21.0-32.0 CL 100 mmol/L (Normal) Range: 98-107 K 4.0 mmol/L (Normal) Range: 3.5-5.1 NA 135 mmol/L (Abnormal) Range: 136-145 T BILI 0.30 mg/dL (Normal) Range: 0.20-1.00 ALT 16 U/L (Normal) Range: 13-56 Comments: Please note revised ALT reference range bdyfrlhiw85/28/2018. ALK P 83 U/L (Normal) Range: 45-117 AST 14 U/L (Abnormal) Range: 15-37 CA 9.3 mg/dL (Normal) Range: 8.5-10.1 A/G 0.6 {RATIO} (Abnormal) Range: 0.9-2.4 GLOB 5.6 g/dL (Abnormal) Range: 2.2-4.2 ALB 3.4 g/dL (Normal) Range: 3.2-5.0 T PROT 9.0 g/dL (Abnormal) Range: 6.4-8.2 BUN/CRE 11.5 {RATIO} (Normal) Range: 10-20 EST GFR - AA 64 mL/min (Normal) Comments: GFR Calc EST GFR 53 mL/min (Abnormal) Comments: Non- GFR Calc CREAT,SERUM 1.13 mg/dL (Abnormal) Range: 0.55-1.02 Comments: The validity of the calculated GFR AND GFRAA in patients over70 years has not been determined. Clinical correlation isessential. BUN 13 mg/dL (Normal) Range: 7-18 GLU 142 mg/dL (Abnormal) Range: 74-106 Comments: Fasting Glucose result greater than or equal to 126 mg/dLsuggests DIABETES MELLITUS per A.D.A. criteria. 04-Frv-181531:41 CBC W/Diff, Automated Comments: [facility] [address] [place], [place], [id number] Absolute Lymph 2.10 {X10_3/ul} (Normal) Range: 0.83-4.51 Absolute Neut 6.6 {X10_3/uL} (Normal) Range: 2.0-7.7 IM GRAN % 0.400 % (Normal) Range: 0.0-0.9 Comments: IG% - Immature Granulocytes (promyelocytes, myelocytes andmetamyelocytes) > 1% indicates that a LEFT SHIFT is Present. BASO% 0.2 % (Normal) Range: 0-1 EO% 0.3 % (Normal) Range: 0-5 MONO% 6.2 % (Normal) Range: 0-10 LY% 22.4 % (Normal) Range: 19-41 NEUT% 70.5 % (Abnormal) Range: 47-70 MPV 9.3 fL (Normal) Range: 6.2-12.0 PLT 378 K/mm3 (Normal) Range: 150-450 RDW SD 44.4 fL (Abnormal) Range: 35.1-43.9 RDW CV 13.7 % (Normal) Range: 11.6-14.6 MCHC 31.2 {g/gl} (Abnormal) Range: 32-36 MCH 28.2 pg (Normal) Range: 27.0-32.0 MCV 90.4 fL (Normal) Range: 81-99 HCT 37.5 % (Normal) Range: 37-47 HGB 11.7 g/dL (Abnormal) Range: 12.0-15.0 RBC 4.15 {M/mm3} (Abnormal) Range: 4.2-5.4 WBC 9.4 K/mm3 (Normal) Range: 4.4-11.0 90-Kmv-008434:41 Comprehensive Metabolic Profil Comments: [facility] [address] [place], [address] GAP 10 (Normal) Range: 5-15 CO2 27.0 mmol/L (Normal) Range: 21.0-32.0 CL 100 mmol/L (Normal) Range: 98-107 K 4.3 mmol/L (Normal) Range: 3.5-5.1 NA 137 mmol/L (Normal) Range: 136-145 T BILI 0.40 mg/dL (Normal) Range: 0.20-1.00 ALT 18 U/L (Normal) Range: 12-78 ALK P 64 U/L (Normal) Range: 45-117 AST 7 U/L (Abnormal) Range: 15-37 CA 9.4 mg/dL (Normal) Range: 8.5-10.1 A/G 0.6 {RATIO} (Abnormal) Range: 0.9-2.4 GLOB 5.3 g/dL (Abnormal) Range: 2.2-4.2 ALB 3.3 g/dL (Abnormal) Range: 3.4-5.0 Comments: Please note revised Albumin AND Globulin reference rangeeffective 2017. T PROT 8.6 g/dL (Abnormal) Range: 6.4-8.2 BUN/CRE 18.0 {RATIO} (Normal) Range: 10-20 EST GFR - AA 73 mL/min (Normal) Comments: GFR Calc EST GFR 61 mL/min (Normal) Comments: Non- GFR Calc CREAT,SERUM 1.00 mg/dL (Normal) Range: 0.55-1.02 Comments: The validity of the calculated GFR AND GFRAA in patients over70 years has not been determined. Clinical correlation isessential. BUN 18 mg/dL (Normal) Range: 7-18 GLU 177 mg/dL (Abnormal) Range: 70-110 Comments: Fasting Glucose result greater than or equal to 126 mg/dLsuggests DIABETES MELLITUS per A.D.A. criteria. 68-Upg-029970:10 CBC W/Diff, Automated Comments: CMP,CBCD FOR DR HUTCHISON WELL [facility] [address] [place], [place], [id number] Absolute Lymph 2.93 {X10_3/ul} (Normal) Range: 0.83-4.51 Absolute Neut 4.7 {X10_3/uL} (Normal) Range: 2.0-7.7 IM GRAN % 0.200 % (Normal) Range: 0.0-0.9 Comments: IG% - Immature Granulocytes (promyelocytes, myelocytes andmetamyelocytes) > 1% indicates that a LEFT SHIFT is Present. BASO% 0.4 % (Normal) Range: 0-1 EO% 0.8 % (Normal) Range: 0-5 MONO% 7.8 % (Normal) Range: 0-10 LY% 34.7 % (Normal) Range: 19-41 NEUT% 56.1 % (Normal) Range: 47-70 MPV 9.5 fL (Normal) Range: 6.2-12.0 PLT 300 K/mm3 (Normal) Range: 150-450 RDW SD 43.4 fL (Normal) Range: 35.1-43.9 RDW CV 13.3 % (Normal) Range: 11.6-14.6 MCHC 32.2 {g/gl} (Normal) Range: 32-36 MCH 29.2 pg (Normal) Range: 27.0-32.0 MCV 90.8 fL (Normal) Range: 81-99 HCT 40.4 % (Normal) Range: 37-47 HGB 13.0 g/dL (Normal) Range: 12.0-15.0 RBC 4.45 {M/mm3} (Normal) Range: 4.2-5.4 WBC 8.5 K/mm3 (Normal) Range: 4.4-11.0 67-Vqo-174945:10 Comprehensive Metabolic Profil Comments: CMP,CBCD FOR DR HUTCHISON WELL [facility] [address] [place], [place], [id number] GAP 9 (Normal) Range: 5-15 CO2 26.0 mmol/L (Normal) Range: 21.0-32.0 CL 104 mmol/L (Normal) Range: 98-107 K 4.0 mmol/L (Normal) Range: 3.5-5.1 NA 139 mmol/L (Normal) Range: 136-145 T BILI 0.30 mg/dL (Normal) Range: 0.20-1.00 ALT 19 U/L (Normal) Range: 12-78 ALK P 64 U/L (Normal) Range: 45-117 AST 13 U/L (Abnormal) Range: 15-37 CA 8.9 mg/dL (Normal) Range: 8.5-10.1 A/G 0.7 {RATIO} (Abnormal) Range: 0.9-2.4 GLOB 4.8 g/dL (Abnormal) Range: 2.3-3.5 ALB 3.4 g/dL (Normal) Range: 3.4-5.0 T PROT 8.2 g/dL (Normal) Range: 6.4-8.2 BUN/CRE 15.0 {RATIO} (Normal) Range: 10-20 EST GFR - AA 64 mL/min (Normal) Comments: GFR Calc EST GFR 53 mL/min (Abnormal) Comments: Non- GFR Calc CREAT,SERUM 1.13 mg/dL (Abnormal) Range: 0.55-1.02 Comments: The validity of the calculated GFR AND GFRAA in patients over70 years has not been determined. Clinical correlation isessential. BUN 17 mg/dL (Normal) Range: 7-18 GLU 131 mg/dL (Abnormal) Range: 70-110 Comments: Fasting Glucose result greater than or equal to 126 mg/dLsuggests DIABETES MELLITUS per A.D.A. criteria. 97-Pvl-175998:10 Lipid Profile Comments: CMP,CBCD FOR DR HUTCHISON WELL [facility] [address] [place], [place], [id number] VLDL 36 mg/dL (Normal) Range: 5-40 LDL 92 mg/dL (Normal) Range: 0-130 HDL 39 mg/dL (Abnormal) Comments: The drugs N-Acetylcysteine and Metamizole may falsely deressthis assay. Reference Range HDL <40 mg/dL Low HDL Cholesterol HDL >or= 60 mg/dL High HDL Cholesterol TRIG 179 mg/dL (Normal) Comments: The drugs N-Acetylcysteine and Metamizole may falsely deressthis assay.Serum Triglycerides Reference Interval Normal <150 mg/dL Borderline high 150 - 199 mg/dL High 200 - 499 mg/dL Very High > or = 500 mg/dL CHOL 167 mg/dL (Normal) Comments: <200 mg/dL Desirable 200-240 mg/dL Borderline >240 mg/dL High Risk 78-Rzp-226077:10 Microalb:Creat Ratio,Random UR Comments: CMP,CBCD FOR DR HUTCHISON WELL [facility] [address] [place], [address] MALB:CREAT 13.6 {mg/g_CRE} (Normal) MICROALBUMIN,UR 16.9 mg/L (Normal) UR CREAT 124.00 mg/dL (Normal) 92-Cjm-351466:10 Thyroid Stim Hormone (TSH) Comments: CMP,CBCD FOR DR HUTCHISON WELL [facility] [address] [place], [address] TSH 1.11 {uIU/mL} (Normal) Range: 0.358-3.74 65-Npl-717818:10 Urinalysis, Complete Comments: CMP,CBCD FOR DR HUTCHISON WELL Sakshi was Urine Obtained? CLEAN [facility] [address] [place], [address] MUCUS, URINE 0 SEEN {/hpf} (Normal) BACTERIA 0 SEEN {/hpf} (Normal) SQUAM EPI 0-5 SEEN {/hpf} (Normal) Range: 5-10 RBC-UA 0 SEEN {/hpf} (Normal) Range: 0-5 WBC 5-10 SEEN {/hpf} (Normal) Range: 0-5 LEUK ESTERASE 100 /ul (Abnormal) OCCULT BLOOD-UR Negative /ul (Normal) NITRITE UR Negative (Normal) UROBILI Normal mg/dL (Normal) PROT DIPSTX Negative mg/dL (Normal) pH UR 5.0 (Normal) Range: 5.0 - 8.0 SP.GR. DIPSTX 1.020 (Normal) Range: 1.002-1.030 KETONE UR Negative mg/dL (Normal) BILIRUBIN URINE Negative mg/dL (Normal) GLUCOSE, UR Normal mg/dL (Normal) CLARITY Sl. Cloudy (Normal) COLOR Yellow (Normal) 73-Hti-912805:10 Vitamin D,25 Hydroxy Comments: CMP,CBCD FOR DR HUTCHISON WELL [facility] [address] [place], [place], [id number] Vitamin D 25-OH 108.1 ng/mL (Normal) Comments: Vitamin D 25(OH) Status Range Deficiency <20 ng/mL (50nmol/L) Insuffciency 20 - 30 ng/mL (50 - 75 nmol/L) Sufficiency 30 - 100 ng/mL (75 - 250 nmol/L) Toxicity >100 ng/mL (>250 nmol/L)Evidence suggests that patients undergoing fluorescein dyeangiography can retain small amounts of fluorescein in thebody for u p to 48 to 72 hours post-treatment. In the casesof patients with renal insufficiency, retention could bemuch longer.Samples containing fluorescein can produce falsely elevatedvalues when tested with the Advia Centaur Vitamin D assay.With fluorescein interference, observed Vitamin D values canbe as high as >150 ng/mL (>375 nmol/L). Samples should beresubmitted post fluorescein clearance to ensure there is nointerference with Vitamin D test results. 83-Vzw-003280:59 HgA1C , Office (84595) HgA1C , Office 7.3 % (Abnormal) Range: 4.6 - 7.1 87-Vqw-820725:59 Blood Glucose , Office (93417) Blood Glucose , Office 192 (Normal) 83-Xhg-139647:16 Rapid Flu (48096 x 2) Influenza A Ag neg a and b (Normal) 8-Tmz-487799:14 URINE LISANDRO CULTURE-IDENTIFICATN Comments: PATIENT NOT FASTINGPERFORMED BY: [facility]CoB[facility] for RehabilitationRuocrn1336 [facility] [id number] Information: SRC:ANDREY (70693) Result 1 MUG (Normal) Comments: Mixed urogenital flora10,000-25,000 colony forming units per mL Urine Final report (Normal) Culture,Comprehensive 4-Aon-440445:00 Urinalysis, Office (94274) UA - LEUKOCYTE ESTERASE Trace (Normal) UA - NITRITE Negative (Normal) URINE UROBILINGN NHAN TIMED Normal mg/dL (Normal) UA - PROTEIN Negative mg/dL (Normal) UA - PH 5 (Abnormal) UA - BLOOD Negative (Normal) UA - SPECIFIC GRAVITY 1.025 (Normal) UA - KETONES Negative mg/dL (Normal) UA - BILIRUBIN Small (Normal) UA - GLUCOSE Negative (Normal) 4-Uby-298022:59 Blood Glucose , Office (62249) Blood Glucose , Office 117 (Normal) 1-Puw-886782:06 Rapid Flu (48012 x 2) Influenza A Ag neg (Normal) :04 HgA1C , Office (85962) HgA1C , Office 6.9 % (Normal) Range: 4.6 - 7.1 :04 Blood Glucose , Office (85026) Blood Glucose , Office 153 (Normal) 6-Yre-763577:11 CBC W/Diff, Automated Comments: [facility] [address] [place], [place], [id number] Absolute Lymph 2.54 {X10_3/ul} (Normal) Range: 0.83-4.51 Absolute Neut 4.6 {X10_3/uL} (Normal) Range: 2.0-7.7 IM GRAN % 0.400 % (Normal) Range: 0.0-0.9 Comments: IG% - Immature Granulocytes (promyelocytes, myelocytes andmetamyelocytes) > 1% indicates that a LEFT SHIFT is Present. BASO% 0.4 % (Normal) Range: 0-1 EO% 1.0 % (Normal) Range: 0-5 MONO% 7.2 % (Normal) Range: 0-10 LY% 32.5 % (Normal) Range: 19-41 NEUT% 58.5 % (Normal) Range: 47-70 MPV 9.3 fL (Normal) Range: 6.2-12.0 PLT 290 K/mm3 (Normal) Range: 150-450 RDW SD 41.0 fL (Normal) Range: 35.1-43.9 RDW CV 12.5 % (Normal) Range: 11.6-14.6 MCHC 32.7 {g/gl} (Normal) Range: 32-36 MCH 30.0 pg (Normal) Range: 27.0-32.0 MCV 91.9 fL (Normal) Range: 81-99 HCT 41.9 % (Normal) Range: 37-47 HGB 13.7 g/dL (Normal) Range: 12.0-15.0 RBC 4.56 {M/mm3} (Normal) Range: 4.2-5.4 WBC 7.8 K/mm3 (Normal) Range: 4.4-11.0 7-Hqx-724382:11 Comprehensive Metabolic Profil Comments: [facility] [address] [place], [address] GAP 6 (Normal) Range: 5-15 CO2 29.0 mmol/L (Normal) Range: 21.0-32.0 CL 105 mmol/L (Normal) Range: 98-107 K 4.0 mmol/L (Normal) Range: 3.5-5.1 NA 140 mmol/L (Normal) Range: 136-145 T BILI 0.40 mg/dL (Normal) Range: 0.20-1.00 ALT 31 U/L (Normal) Range: 12-78 ALK P 92 U/L (Normal) Range: 45-117 AST 17 U/L (Normal) Range: 15-37 CA 9.2 mg/dL (Normal) Range: 8.5-10.1 A/G 0.7 {RATIO} (Abnormal) Range: 0.9-2.4 GLOB 5.0 g/dL (Abnormal) Range: 2.3-3.5 ALB 3.6 g/dL (Normal) Range: 3.4-5.0 T PROT 8.6 g/dL (Abnormal) Range: 6.4-8.2 BUN/CRE 12.4 {RATIO} (Normal) Range: 10-20 EST GFR - AA 59 mL/min (Abnormal) Comments: GFR Calc EST GFR 49 mL/min (Abnormal) Comments: Non- GFR Calc CREAT,SERUM 1.21 mg/dL (Abnormal) Range: 0.55-1.02 Comments: The validity of the calculated GFR AND GFRAA in patients over70 years has not been determined. Clinical correlation isessential. BUN 15 mg/dL (Normal) Range: 7-18 GLU 210 mg/dL (Abnormal) Range: 70-110 Comments: Glucose result greater than or equal to 200 mg/dLsuggests DIABETES MELLITUS per A.D.A. criteria. 70-Mvo-362851:47 Pap IG, HPV-hr Comments: No. of containers..01 CYTYC Thin Prep VialPERFORMED BY: WB ZoomTiltton120 [facility] [id number] BY: =G [employer]oom[address]ilt[address]120 [facility] [id number] Information: [id number] HPV, high-risk Negative Comments: This high-risk HPV test detects thirteen high- risk types(16/18/31/33/35/39/45/51/52/56/58/59/68) without differentiation. . (Normal) Note: PAPSMR (Normal) Comments: The Pap smear is a screening test designed to aid in the detection ofpremalignant and malignant conditions of the uterine cervix. It is not adiagnostic procedure and should not be used as the sole mean s of detectingcervical cancer. Both false-positive and false-negative reports do occur. .This liquid based ThinPrep(R) pap test w as screened with theuse of an image guided system. See Note . (Normal) DIAGNOSIS: SPRCS (Normal) Comments: NEGATIVE FOR INTRAEPITHELIAL LESION AND MALIGNANCY.Satisfactory for evaluation. Endocervical and/or squamous metaplasticcells (endocervical component) are present.Z01.419Z11.51Leslie Muñoz , Chemist (ASCP) :56 HgA1C , Office (71194) HgA1C , Office 6.4 % (Normal) Range: 4.6 - 7.1 :56 Blood Glucose , Office (87429) Blood Glucose , Office 132 (Normal) 9-Cfn-352569:21 Microscopic Examination Comments: PATIENT WAS FASTINGPERFORMED BY: LabCoRUSTNjdstc4151 [facility] [id number] Bacteria None seen (Normal) Mucus Threads Present (Normal) Cast Type Hyaline casts (Normal) Casts Present {/lpf} (Abnormal) Epithelial Cells (non renal) 0-10 {/hpf} (Normal) Range: 0 - 10 RBC 0-2 {/hpf} (Normal) Range: 0 - 2 WBC 0-5 {/hpf} (Normal) Range: 0 - 5 :15 CBC W/Diff, Automated Comments: [facility] [address] [place], [address] Absolute Lymph 3.05 {X10_3/ul} (Normal) Range: 0.83-4.51 Absolute Neut 5.2 {X10_3/uL} (Normal) Range: 2.0-7.7 IM GRAN % 0.100 % (Normal) Range: 0.0-0.9 Comments: IG% - Immature Granulocytes (promyelocytes, myelocytes andmetamyelocytes) > 1% indicates that a LEFT SHIFT is Present. BASO% 0.1 % (Normal) Range: 0-1 EO% 1.9 % (Normal) Range: 0-5 MONO% 10.1 % (Abnormal) Range: 0-10 LY% 32.6 % (Normal) Range: 19-41 NEUT% 55.2 % (Normal) Range: 47-70 MPV 9.6 fL (Normal) Range: 6.2-12.0 PLT 280 K/mm3 (Normal) Range: 150-450 RDW SD 42.1 fL (Normal) Range: 35.1-43.9 RDW CV 13.1 % (Normal) Range: 11.6-14.6 MCHC 34.0 {g/gl} (Normal) Range: 32-36 MCH 30.3 pg (Normal) Range: 27.0-32.0 MCV 89.2 fL (Normal) Range: 81-99 HCT 40.6 % (Normal) Range: 37-47 HGB 13.8 g/dL (Normal) Range: 12.0-15.0 RBC 4.55 {M/mm3} (Normal) Range: 4.2-5.4 WBC 9.4 K/mm3 (Normal) Range: 4.4-11.0 79-Nbd-188320:15 Comprehensive Metabolic Profil Comments: [facility] [address] [place], [place], [id number] GAP 8 (Normal) Range: 5-15 CO2 27.0 mmol/L (Normal) Range: 21.0-32.0 CL 106 mmol/L (Normal) Range: 98-107 K 3.6 mmol/L (Normal) Range: 3.5-5.1 NA 141 mmol/L (Normal) Range: 136-145 T BILI 1.00 mg/dL (Normal) Range: 0.20-1.00 ALT 31 U/L (Normal) Range: 12-78 ALK P 92 U/L (Normal) Range: 50-136 AST 30 U/L (Normal) Range: 15-37 CA 9.1 mg/dL (Normal) Range: 8.5-10.1 A/G 0.8 {RATIO} (Abnormal) Range: 0.9-2.4 GLOB 4.4 g/dL (Abnormal) Range: 2.3-3.5 ALB 3.6 g/dL (Normal) Range: 3.4-5.0 T PROT 8.0 g/dL (Normal) Range: 6.4-8.2 BUN/CRE 13.4 {RATIO} (Normal) Range: 10-20 Estimated CRCL 48.10 ml/min (Normal) EST GFR - AA 56 mL/min (Abnormal) Comments: GFR Calc EST GFR 46 mL/min (Abnormal) Comments: Non- GFR Calc CREAT,SERUM 1.27 mg/dL (Abnormal) Range: 0.55-1.20 Comments: The validity of the calculated GFR AND GFRAA in patients over70 years has not been determined. Clinical correlation isessential. BUN 17 mg/dL (Normal) Range: 7-18 GLU 121 mg/dL (Abnormal) Range: 70-110 Comments: Fasting Glucose result from 110 to <126 mg/dLsuggests IMPAIRED HOMEOSTASIS per A.D.A. criteria. :15 Lipase Comments: [facility] [address] [place], [id number] LIPASE 206 U/L (Normal) Range: 73-393 :54 CBC W/Diff, Automated Comments: [facility] [id number] [place], [place], [id number] Absolute Lymph 2.75 {X10_3/ul} (Normal) Range: 0.83-4.51 Absolute Neut 2.2 {X10_3/uL} (Normal) Range: 2.0-7.7 IM GRAN % 0.200 % (Normal) Range: 0.0-0.9 Comments: IG% - Immature Granulocytes (promyelocytes, myelocytes andmetamyelocytes) > 1% indicates that a LEFT SHIFT is Present. BASO% 0.5 % (Normal) Range: 0-1 EO% 2.3 % (Normal) Range: 0-5 MONO% 10.3 % (Abnormal) Range: 0-10 LY% 48.1 % (Abnormal) Range: 19-41 NEUT% 38.6 % (Abnormal) Range: 47-70 MPV 9.4 fL (Normal) Range: 6.2-12.0 PLT 262 K/mm3 (Normal) Range: 150-450 RDW SD 47.5 fL (Abnormal) Range: 35.1-43.9 RDW CV 14.8 % (Abnormal) Range: 11.6-14.6 MCHC 32.4 {g/gl} (Normal) Range: 32-36 MCH 28.7 pg (Normal) Range: 27.0-32.0 MCV 88.4 fL (Normal) Range: 81-99 HCT 39.8 % (Normal) Range: 37-47 HGB 12.9 g/dL (Normal) Range: 12.0-15.0 RBC 4.50 {M/mm3} (Normal) Range: 4.2-5.4 WBC 5.7 K/mm3 (Normal) Range: 4.4-11.0 [id number] Comprehensive Metabolic Profil Comments: [facility] [id number] [place], [place], [id number] GAP 6 (Normal) Range: 5-15 CO2 30.0 mmol/L (Normal) Range: 21.0-32.0 CL 104 mmol/L (Normal) Range: 98-107 K 4.2 mmol/L (Normal) Range: 3.5-5.1 NA 140 mmol/L (Normal) Range: 136-145 T BILI 0.40 mg/dL (Normal) Range: 0.20-1.00 ALT 24 U/L (Normal) Range: 12-78 ALK P 82 U/L (Normal) Range: 50-136 AST 19 U/L (Normal) Range: 15-37 CA 9.3 mg/dL (Normal) Range: 8.5-10.1 A/G 0.8 {RATIO} (Abnormal) Range: 0.9-2.4 GLOB 4.5 g/dL (Abnormal) Range: 2.3-3.5 ALB 3.6 g/dL (Normal) Range: 3.4-5.0 T PROT 8.1 g/dL (Normal) Range: 6.4-8.2 BUN/CRE 11.6 {RATIO} (Normal) Range: 10-20 EST GFR - AA 65 mL/min (Normal) Comments: GFR Calc EST GFR 53 mL/min (Abnormal) Comments: Non- GFR Calc CREAT,SERUM 1.12 mg/dL (Normal) Range: 0.55-1.20 Comments: The validity of the calculated GFR AND GFRAA in patients over70 years has not been determined. Clinical correlation isessential. BUN 13 mg/dL (Normal) Range: 7-18 GLU 122 mg/dL (Abnormal) Range: 70-110 Comments: Fasting Glucose result from 110 to <126 mg/dLsuggests IMPAIRED HOMEOSTASIS per A.D.A. criteria. [id number] CALCIFIDIOL ([id number]) VIT D 25 Comments: PATIENT WAS FASTINGPERFORMED BY: [facility] Zcizho2993 [facility] [id number] Vitamin D, 25-Hydroxy 114.0 ng/mL (Abnormal) Range: 30.0-100.0 Comments: Vitamin D deficiency has been defined by the [place] ofMedicine and an Endocrine Society practice guideline as alevel of serum 25-OH vitamin D less than 20 ng/mL (1,2).The Endocrine Society went on to further define vitamin Dinsufficiency as a level between 21 and 29 ng/mL (2).1. IOM ([place] of Medicine). 2010. Dietary reference intakes for calcium and D. Real [place]: The National Academies Press.2. Mekhi MF, Dee Dee HADDAD, Fransisco HERNDON, et al. Evaluation, treatment, and prevention of vitamin D deficiency: an Endocrine Society clinical practice guideline. JCEM. 2010; 96(7):4881-30. :21 TSH (07453) Comments: PATIENT WAS FASTINGPERFORMED BY: [facility]atoSsm RehabIpblpm8199 [facility] [id number] TSH 2.730 {uIU/mL} (Normal) Range: 0.450-4.500 7-Mqh-722152:21 URINALYSIS, W/ MICRO (04010) Comments: PATIENT WAS FASTINGPERFORMED BY: [facility]6370 [facility] [id number] Microscopic Examination See below: (Normal) Comments: Microscopic was indicated and was performed. Nitrite, Urine Negative (Normal) Urobilinogen,Semi-Qn 0.2 mg/dL (Normal) Range: 0.2-1.0 Bilirubin Negative (Normal) Occult Blood Negative (Normal) Ketones Negative (Normal) Glucose Negative (Normal) Protein Negative (Normal) WBC Esterase Trace (Abnormal) Appearance Clear (Normal) Urine-Color Yellow (Normal) pH 6.0 (Normal) Range: 5.0-7.5 Specific [place] 1.020 (Normal) Range: 1.005-1.030 :21 MICROALBUMIN: CREATININE RATIO Comments: PATIENT WAS FASTINGPERFORMED BY: [employer] Lfjpqj9850 [facility] [id number] ([id number]) AND (88706) Microalb/Creat Ratio 5.3 {mg/g_creat} (Normal) Range: 0.0-30.0 Microalbumin, Urine 7.4 ug/mL (Normal) Creatinine, Urine 139.7 mg/dL (Normal) :21 METABOLIC PANEL, COMPREHENSIVE Comments: PATIENT WAS FASTINGPERFORMED BY: [employer] Hevbnc0602 [facility] [id number] ([id number]) ALT (SGPT) 20 [iU]/L (Normal) Range: 0-32 AST (SGOT) 22 [iU]/L (Normal) Range: 0-40 Alkaline Phosphatase, S 99 [iU]/L (Normal) Range: 39-117 Bilirubin, Total 0.4 mg/dL (Normal) Range: 0.0-1.2 A/G Ratio 1.3 (Normal) Range: 1.1-2.5 Globulin, Total 3.1 g/dL (Normal) Range: 1.5-4.5 Albumin, Serum 4.1 g/dL (Normal) Range: 3.5-5.5 Protein, Total, Serum 7.2 g/dL (Normal) Range: 6.0-8.5 Calcium, Serum 9.4 mg/dL (Normal) Range: 8.7-10.2 Carbon Dioxide, Total 22 mmol/L (Normal) Range: 18-29 Chloride, Serum 99 mmol/L (Normal) Range: 97-108 Comments: Effective May 27, 2016 the reference interval for Chloride, Serum will be changing to: 97 - 106 Potassium, Serum 4.2 mmol/L (Normal) Range: 3.5-5.2 Comments: Effective May 27, 2016 the reference interval for Potassium, Serum will be changing to: 0 - 7 days 3.7 - 5.2 8 - 30 days 3.7 - 6.4 1 - 6 months 3.8 - 6.0 7 months - 1 year 3.8 - 5.3 >1 year 3.5 - 5.2 Sodium, Serum 141 mmol/L (Normal) Range: 134-144 Comments: Effective May 27, 2016 the reference interval for Sodium, Serum will be changing to: 136 - 144 BUN/Creatinine Ratio 14 (Normal) Range: 9-23 eGFR If Africn Am 67 mL/min/1.73 (Normal) eGFR If NonAfricn Am 58 mL/min/1.73 (Abnormal) Creatinine, Serum 1.07 mg/dL (Abnormal) Range: 0.57-1.00 BUN 15 mg/dL (Normal) Range: 6-24 Glucose, Serum 155 mg/dL (Abnormal) Range: 65-99 2-Xwr-766393:21 CBC W/AUTO DIFF WBC Comments: PATIENT WAS FASTINGPERFORMED BY: [facility]CoB[facility]arach Institute for RehabilitationTknpmg0658 [facility] [id number] Information: [id number] (25229) Immature Grans (Abs) 0.0 {x10E3/uL} (Normal) Range: 0.0-0.1 Immature Granulocytes 0 % (Normal) Baso (Absolute) 0.0 {x10E3/uL} (Normal) Range: 0.0-0.2 Eos (Absolute) 0.6 {x10E3/uL} (Abnormal) Range: 0.0-0.4 Monocytes(Absolute) 0.5 {x10E3/uL} (Normal) Range: 0.1-0.9 Lymphs (Absolute) 2.8 {x10E3/uL} (Normal) Range: 0.7-3.1 Neutrophils (Absolute) 2.8 {x10E3/uL} (Normal) Range: 1.4-7.0 Basos 0 % (Normal) Eos 9 % (Normal) Monocytes 7 % (Normal) Lymphs 42 % (Normal) Neutrophils 42 % (Normal) Platelets 318 {x10E3/uL} (Normal) Range: 150-379 RDW 13.6 % (Normal) Range: 12.3-15.4 MCHC 33.3 g/dL (Normal) Range: 31.5-35.7 MCH 29.7 pg (Normal) Range: 26.6-33.0 MCV 89 fL (Normal) Range: 79-97 Hematocrit 37.2 % (Normal) Range: 34.0-46.6 Hemoglobin 12.4 g/dL (Normal) Range: 11.1-15.9 RBC 4.17 {x10E6/uL} (Normal) Range: 3.77-5.28 WBC 6.7 {x10E3/uL} (Normal) Range: 3.4-10.8 :07 HgA1C , Office (39485) HgA1C , Office 5.8 % (Normal) Range: 4.6 - 7.1 :07 Blood Glucose , Office (07445) Blood Glucose , Office 92 (Normal) :05 HgA1C , Office (34569) HgA1C , Office 6.6 % (Normal) Range: 4.6 - 7.1 :05 Blood Glucose , Office (12743) Blood Glucose , Office 130 (Normal) :46 CBC W/Diff, Automated Comments: [facility] [address] [place], [place], [id number] Absolute Lymph 3.03 {X10_3/ul} (Normal) Range: 0.83-4.51 Absolute Neut 3.4 {X10_3/uL} (Normal) Range: 2.0-7.7 IM GRAN % 0.300 % (Normal) Range: 0.0-0.9 Comments: IG% - Immature Granulocytes (promyelocytes, myelocytes andmetamyelocytes) > 1% indicates that a LEFT SHIFT is Present. BASO% 0.6 % (Normal) Range: 0-1 EO% 1.3 % (Normal) Range: 0-5 MONO% 7.8 % (Normal) Range: 0-10 LY% 42.4 % (Abnormal) Range: 19-41 NEUT% 47.6 % (Normal) Range: 47-70 MPV 9.4 fL (Normal) Range: 6.2-12.0 PLT 294 K/mm3 (Normal) Range: 150-450 RDW SD 40.7 fL (Normal) Range: 35.1-43.9 RDW CV 12.3 % (Normal) Range: 11.6-14.6 MCHC 33.1 {g/gl} (Normal) Range: 32-36 MCH 30.4 pg (Normal) Range: 27.0-32.0 MCV 91.9 fL (Normal) Range: 81-99 HCT 39.6 % (Normal) Range: 37-47 HGB 13.1 g/dL (Normal) Range: 12.0-15.0 RBC 4.31 {M/mm3} (Normal) Range: 4.2-5.4 WBC 7.2 K/mm3 (Normal) Range: 4.4-11.0 8-Ziw-163182:46 Comprehensive Metabolic Profil Comments: [facility] Jgredaxcgy4648 [facility] [place], [address] GAP 7 (Normal) Range: 5-15 CO2 29.0 mmol/L (Normal) Range: 21.0-32.0 CL 105 mmol/L (Normal) Range: 98-107 K 3.9 mmol/L (Normal) Range: 3.5-5.1 NA 141 mmol/L (Normal) Range: 136-145 T BILI 0.40 mg/dL (Normal) Range: 0.20-1.00 ALT 25 U/L (Normal) Range: 12-78 ALK P 99 U/L (Normal) Range: 50-136 AST 19 U/L (Normal) Range: 15-37 CA 8.9 mg/dL (Normal) Range: 8.5-10.1 A/G 0.7 {RATIO} (Abnormal) Range: 0.9-2.4 GLOB 4.9 g/dL (Abnormal) Range: 2.3-3.5 ALB 3.5 g/dL (Normal) Range: 3.4-5.0 T PROT 8.4 g/dL (Abnormal) Range: 6.4-8.2 BUN/CRE 13.1 {RATIO} (Normal) Range: 10-20 EST GFR - AA 55 mL/min (Abnormal) Comments: GFR Calc EST GFR 45 mL/min (Abnormal) Comments: Non- GFR Calc CREAT,SERUM 1.30 mg/dL (Abnormal) Range: 0.55-1.20 Comments: The validity of the calculated GFR AND GFRAA in patients over70 years has not been determined. Clinical correlation isessential. BUN 17 mg/dL (Normal) Range: 7-18 GLU 165 mg/dL (Abnormal) Range: 70-110 Comments: Fasting Glucose result greater than or equal to 126 mg/dLsuggests DIABETES MELLITUS per A.D.A. criteria. :09 Blood Glucose , Office (30998) Blood Glucose , Office 181 (Normal) :09 HgA1C , Office (78305) HgA1C , Office 7.1 % (Normal) Range: 4.6 - 7.1 1-Kwo-969968:50 AFP, Tumor Marker Comments: Is Patient ? NComments: [facility] (refer to report for specific site)refer to report for address and phone number AFP TUMOR 2253 1.6 ng/mL (Normal) Range: 0.0-8.3 Comments: Aric ECLIA methodologyPerformed at: CB - [facility] [address] [id number] Director: Herve Mata PhD, Phone: [phone] 9-Xpe-609713:50 CBC W/Diff, Automated Comments: [facility] [address] [place], [place], [id number] Absolute Lymph 3.23 {X10_3/ul} (Normal) Range: 0.83-4.51 Absolute Neut 3.6 {X10_3/uL} (Normal) Range: 2.0-7.7 IM GRAN % 0.100 % (Normal) Range: 0.0-0.9 Comments: IG% - Immature Granulocytes (promyelocytes, myelocytes andmetamyelocytes) > 1% indicates that a LEFT SHIFT is Present. BASO% 0.5 % (Normal) Range: 0-1 EO% 3.9 % (Normal) Range: 0-5 MONO% 5.7 % (Normal) Range: 0-10 LY% 42.4 % (Abnormal) Range: 19-41 NEUT% 47.4 % (Normal) Range: 47-70 MPV 9.4 fL (Normal) Range: 6.2-12.0 PLT 250 K/mm3 (Normal) Range: 150-450 RDW SD 42.7 fL (Normal) Range: 35.1-43.9 RDW CV 12.7 % (Normal) Range: 11.6-14.6 MCHC 33.2 {g/gl} (Normal) Range: 32-36 MCH 30.3 pg (Normal) Range: 27.0-32.0 MCV 91.5 fL (Normal) Range: 81-99 HCT 38.6 % (Normal) Range: 37-47 HGB 12.8 g/dL (Normal) Range: 12.0-15.0 RBC 4.22 {M/mm3} (Normal) Range: 4.2-5.4 WBC 7.6 K/mm3 (Normal) Range: 4.4-11.0 0-Kjd-966343:50 Comprehensive Metabolic Profil Comments: Comments: [facility] [address] [place], [place], [id number] GAP 6 (Normal) Range: 5-15 CO2 28.0 mmol/L (Normal) Range: 21.0-32.0 CL 105 mmol/L (Normal) Range: 98-107 K 3.7 mmol/L (Normal) Range: 3.5-5.1 NA 139 mmol/L (Normal) Range: 136-145 T BILI 0.50 mg/dL (Normal) Range: 0.20-1.00 ALT 32 U/L (Normal) Range: 12-78 ALK P 100 U/L (Normal) Range: 50-136 AST 24 U/L (Normal) Range: 15-37 CA 9.4 mg/dL (Normal) Range: 8.5-10.1 A/G 0.8 {RATIO} (Abnormal) Range: 0.9-2.4 GLOB 4.5 g/dL (Abnormal) Range: 2.3-3.5 ALB 3.7 g/dL (Normal) Range: 3.4-5.0 T PROT 8.2 g/dL (Normal) Range: 6.4-8.2 BUN/CRE 12.2 {RATIO} (Normal) Range: 10-20 EST GFR - AA 58 mL/min (Abnormal) Comments: GFR Calc EST GFR 48 mL/min (Abnormal) Comments: Non- GFR Calc CREAT,SERUM 1.23 mg/dL (Abnormal) Range: 0.55-1.20 Comments: The validity of the calculated GFR AND GFRAA in patients over70 years has not been determined. Clinical correlation isessential. BUN 15 mg/dL (Normal) Range: 7-18 GLU 124 mg/dL (Abnormal) Range: 70-110 Comments: Fasting Glucose result from 110 to <126 mg/dLsuggests IMPAIRED HOMEOSTASIS per A.D.A. criteria. 9-Hvj-436984:50 Lipid Profile Comments: Comments: [facility] [address] [place], [place], [id number] VLDL 34 mg/dL (Normal) Range: 5-40 LDL 109 mg/dL (Normal) Range: 0-130 HDL 40 mg/dL (Normal) Comments: Reference Range HDL <40 mg/dL Low HDL Cholesterol HDL >or= 60 mg/dL High HDL Cholesterol TRIG 172 mg/dL (Normal) Comments: Serum Triglycerides Reference Interval Normal <150 mg/dL Borderline high 150 - 199 mg/dL High 200 - 499 mg/dL Very High > or = 500 mg/dL CHOL 183 mg/dL (Normal) Comments: <200 mg/dL Desirable 200-240 mg/dL Borderline >240 mg/dL High Risk 0-Ryi-354658:50 Microalb:Creat Ratio,Random UR Comments: [facility] [address] [place], [address] MALB:CREAT 15.3 {mg/g_CRE} (Normal) MICROALBUMIN,UR 20.4 mg/L (Normal) UR CREAT 133.00 mg/dL (Normal) 6-Gsh-376472:50 Prothrombin Time w/INR Comments: [facility] [address] [place], [address] INR 0.9 (Normal) PROTIME 12.8 s (Normal) Range: 11.7-14.9 2-Tde-974326:50 Thyroid Stim Hormone (TSH) Comments: Comments: [facility] [address] [place], [address] TSH 1.00 {uIU/mL} (Normal) Range: 0.358-3.74 1-Twb-945140:50 Urinalysis, Complete Comments: Comments: NHow was Urine Obtained? U[facility], [facility] [address] [place], [address] MUCUS, URINE 0 SEEN {/hpf} (Normal) BACTERIA 0 SEEN {/hpf} (Normal) SQUAM EPI 0-5 SEEN {/hpf} (Normal) Range: 5-10 RBC-UA 0 SEEN {/hpf} (Normal) Range: 0-5 WBC 5-10 SEEN {/hpf} (Normal) Range: 0-5 LEUK ESTERASE 100 /ul (Abnormal) OCCULT BLOOD-UR Negative /ul (Normal) NITRITE UR Negative (Normal) UROBILI Normal mg/dL (Normal) PROT DIPSTX Negative mg/dL (Normal) pH UR 5.0 (Normal) Range: 5.0 - 8.0 SP.GR. DIPSTX 1.025 (Normal) Range: 1.002-1.030 KETONE UR Negative mg/dL (Normal) BILIRUBIN URINE Negative mg/dL (Normal) GLUCOSE, UR Normal mg/dL (Normal) CLARITY Clear (Normal) COLOR Yellow (Normal) 0-Vik-562647:50 Vitamin D,25 Hydroxy Comments: [facility] [address] [place], [address] Vitamin D 25-OH 81.8 ng/mL (Normal) Comments: Vitamin D 25(OH) Status Range Deficiency <20 ng/mL (50nmol/L) Insuffciency 20 - 30 ng/mL (50 - 75 nmol/L) Sufficiency 30 - 100 ng/mL (75 - 250 nmol/L) Toxicity >100 ng/mL (>250 nmol/L) 3-Ihz-810958:27 HPV automatic Comments: Source.............Cervical;EndocervicalNo. of containers..01 CYTYC Thin Prep VialPATIENT NOT FASTINGPERFORMED BY: [facility] [address] [id number] BY: [address] ([address]) [facility] [address] [id number] Information: [id number] HPV, high-risk Negative Comments: This high-risk HPV test detects thirteen high- risk types(16/18/31/33/35/39/45/51/52/56/58/59/68) without differentiation. . (Normal) Note: PAPSMR (Normal) Comments: The Pap smear is a screening test designed to aid in the detection ofpremalignant and malignant conditions of the uterine cervix. It is not adiagnostic procedure and should not be used as the sole mean s of detectingcervical cancer. Both false-positive and false-negative reports do occur. .This liquid based ThinPrep(R) pap test w as screened with theuse of an image guided system. See Note . (Normal) DIAGNOSIS: SPRCS (Normal) Comments: NEGATIVE FOR INTRAEPITHELIAL LESION AND MALIGNANCY.Satisfactory for evaluation. Endocervical and/or squamous metaplasticcells (endocervical component) are present.V70.0Thania cotter Chemist (ASCP) 00-Taq-990993:27 Amylase (10401) Comments: PATIENT NOT FASTINGPERFORMED BY: [facility] Vubthb3430 [facility] [id number] Amylase, Serum 58 U/L (Normal) Range: 31-124 90-Mmv-305012:27 Lipase (39194) Comments: PATIENT NOT FASTINGPERFORMED BY: [facility] Lbyvmp2806 [facility] [id number] Lipase, Serum 46 U/L (Normal) Range: 0-59 :27 Sed Rate Erythrocyte (42096) Comments: PATIENT NOT FASTINGPERFORMED BY: [facility] Dfrocm0935 [facility] [id number] Sedimentation Rate-Westergren 21 mm/h (Normal) Range: 0-40 :27 Metabolic Panel, Comprehensive Comments: PATIENT NOT FASTINGPERFORMED BY: [facility] Zgupkg6883 [facility] [id number] ([id number]) ALT (SGPT) 16 [iU]/L (Normal) Range: 0-32 AST (SGOT) 17 [iU]/L (Normal) Range: 0-40 Alkaline Phosphatase, S 85 [iU]/L (Normal) Range: 39-117 Bilirubin, Total 0.4 mg/dL (Normal) Range: 0.0-1.2 A/G Ratio 1.3 (Normal) Range: 1.1-2.5 Globulin, Total 3.2 g/dL (Normal) Range: 1.5-4.5 Albumin, Serum 4.3 g/dL (Normal) Range: 3.5-5.5 Protein, Total, Serum 7.5 g/dL (Normal) Range: 6.0-8.5 Calcium, Serum 9.2 mg/dL (Normal) Range: 8.7-10.2 Carbon Dioxide, Total 23 mmol/L (Normal) Range: 18-29 Chloride, Serum 99 mmol/L (Normal) Range: 97-108 Potassium, Serum 3.7 mmol/L (Normal) Range: 3.5-5.2 Sodium, Serum 141 mmol/L (Normal) Range: 134-144 BUN/Creatinine Ratio 13 (Normal) Range: 9-23 eGFR If Africn Am 59 mL/min/1.73 (Abnormal) eGFR If NonAfricn Am 52 mL/min/1.73 (Abnormal) Creatinine, Serum 1.19 mg/dL (Abnormal) Range: 0.57-1.00 BUN 16 mg/dL (Normal) Range: 6-24 Glucose, Serum 177 mg/dL (Abnormal) Range: 65-99 :27 CBC with auto diff Comments: PATIENT NOT FASTINGPERFORMED BY: [facility]CoB[facility] for RehabilitationJmsqcb7865 [facility] [id number] Information: [id number] (15173) Immature Grans (Abs) 0.0 {x10E3/uL} (Normal) Range: 0.0-0.1 Immature Granulocytes 0 % (Normal) Baso (Absolute) 0.0 {x10E3/uL} (Normal) Range: 0.0-0.2 Eos (Absolute) 0.2 {x10E3/uL} (Normal) Range: 0.0-0.4 Monocytes(Absolute) 0.6 {x10E3/uL} (Normal) Range: 0.1-0.9 Lymphs (Absolute) 2.6 {x10E3/uL} (Normal) Range: 0.7-3.1 Neutrophils (Absolute) 4.9 {x10E3/uL} (Normal) Range: 1.4-7.0 Basos 0 % (Normal) Eos 3 % (Normal) Monocytes 7 % (Normal) Lymphs 31 % (Normal) Neutrophils 59 % (Normal) Platelets 269 {x10E3/uL} (Normal) Range: 150-379 RDW 13.8 % (Normal) Range: 12.3-15.4 MCHC 32.8 g/dL (Normal) Range: 31.5-35.7 MCH 29.2 pg (Normal) Range: 26.6-33.0 MCV 89 fL (Normal) Range: 79-97 Hematocrit 38.1 % (Normal) Range: 34.0-46.6 Hemoglobin 12.5 g/dL (Normal) Range: 11.1-15.9 RBC 4.28 {x10E6/uL} (Normal) Range: 3.77-5.28 WBC 8.2 {x10E3/uL} (Normal) Range: 3.4-10.8 :04 HgA1C , Office (02670) HgA1C , Office 6.3 % (Normal) Range: 4.6 - 7.1 :04 Blood Glucose , Office (86384) Blood Glucose , Office 131 (Normal) 4-Aug-70204:21 CBC W/Diff, Automated Comments: Test performed at:[facility] [address] [place], [place] [id number] Absolute Lymph 3.64 {X10_3/ul} (Normal) Range: 0.83-4.51 Absolute Neut 3.1 {X10_3/uL} (Normal) Range: 2.0-7.7 IM GRAN % 0.100 % (Normal) Range: 0.0-0.9 Comments: IG% - Immature Granulocytes (promyelocytes, myelocytes andmetamyelocytes) > 1% indicates that a LEFT SHIFT is Present. BASO% 0.6 % (Normal) Range: 0-1 EO% 3.6 % (Normal) Range: 0-5 MONO% 8.7 % (Normal) Range: 0-10 LY% 47.3 % (Abnormal) Range: 19-41 NEUT% 39.7 % (Abnormal) Range: 47-70 MPV 9.7 fL (Normal) Range: 6.2-12.0 PLT 244 K/mm3 (Normal) Range: 150-450 RDW SD 43.2 fL (Normal) Range: 35.1-43.9 RDW CV 13.0 % (Normal) Range: 11.6-14.6 MCHC 32.2 {g/gl} (Normal) Range: 32-36 MCH 29.2 pg (Normal) Range: 27.0-32.0 MCV 90.8 fL (Normal) Range: 81-99 HCT 37.6 % (Normal) Range: 37-47 HGB 12.1 g/dL (Normal) Range: 12.0-15.0 RBC 4.14 {M/mm3} (Abnormal) Range: 4.2-5.4 WBC 7.7 K/mm3 (Normal) Range: 4.4-11.0 :21 Comprehensive Metabolic Profil Comments: Test performed at:[facility] [address] [place] [address] GAP 9 (Normal) Range: 5-15 CO2 27.0 mmol/L (Normal) Range: 21.0-32.0 CL 106 mmol/L (Normal) Range: 98-107 K 3.8 mmol/L (Normal) Range: 3.5-5.1 NA 142 mmol/L (Normal) Range: 136-145 T BILI 0.40 mg/dL (Normal) Range: 0.20-1.00 ALT 22 U/L (Normal) Range: 12-78 ALK P 82 U/L (Normal) Range: 50-136 AST 19 U/L (Normal) Range: 15-37 CA 8.9 mg/dL (Normal) Range: 8.5-10.1 A/G 0.8 {RATIO} (Abnormal) Range: 0.9-2.4 GLOB 4.5 g/dL (Abnormal) Range: 2.3-3.5 ALB 3.5 g/dL (Normal) Range: 3.4-5.0 T PROT 8.0 g/dL (Normal) Range: 6.4-8.2 BUN/CRE 14.4 {RATIO} (Normal) Range: 10-20 EST GFR - AA 65 mL/min (Normal) EST GFR 54 mL/min (Abnormal) CREAT,SERUM 1.11 mg/dL (Normal) Range: 0.55-1.20 Comments: Please note revised CREATININE reference range kkguloznx49/22/2015. BUN 16 mg/dL (Normal) Range: 7-18 GLU 100 mg/dL (Normal) Range: 70-110 31-Bfz-20127:45 Basic Metabolic Profile (BMP) Comments: Test performed at:[facility] [address] [place] [address] GAP 11 (Normal) Range: 5-15 CO2 22.0 mmol/L (Normal) Range: 21.0-32.0 CL 103 mmol/L (Normal) Range: 98-107 K 3.6 mmol/L (Normal) Range: 3.5-5.1 NA 136 mmol/L (Normal) Range: 136-145 CA 9.6 mg/dL (Normal) Range: 8.5-10.1 BUN/CRE 10.7 {RATIO} (Normal) Range: 10-20 Estimated CRCL 41.21 ml/min (Normal) EST GFR - AA 46 mL/min (Abnormal) EST GFR 38 mL/min (Abnormal) CREAT,SERUM 1.5 mg/dL (Abnormal) Range: 0.6-1.0 BUN 16 mg/dL (Normal) Range: 7-18 GLU 178 mg/dL (Abnormal) Range: 70-110 Comments: Fasting Glucose result greater than or equal to 126 mg/dLsuggests DIABETES MELLITUS per A.D.A. criteria. :45 CBC W/Diff, Automated Comments: Test performed at:[facility] [address] [place] [address] Absolute Lymph 2.61 {X10_3/ul} (Normal) Range: 0.83-4.51 Absolute Neut 6.6 {X10_3/uL} (Normal) Range: 2.0-7.7 IM GRAN % 0.300 % (Normal) Range: 0.0-0.9 Comments: IG% - Immature Granulocytes (promyelocytes, myelocytes andmetamyelocytes) > 1% indicates that a LEFT SHIFT is Present. BASO% 0.1 % (Normal) Range: 0-1 EO% 0.7 % (Normal) Range: 0-5 MONO% 9.3 % (Normal) Range: 0-10 LY% 25.4 % (Normal) Range: 19-41 NEUT% 64.2 % (Normal) Range: 47-70 MPV 9.6 fL (Normal) Range: 6.2-12.0 PLT 328 K/mm3 (Normal) Range: 150-450 RDW SD 41.5 fL (Normal) Range: 35.1-43.9 RDW CV 13.1 % (Normal) Range: 11.6-14.6 MCHC 33.8 {g/gl} (Normal) Range: 32-36 MCH 30.0 pg (Normal) Range: 27.0-32.0 MCV 88.9 fL (Normal) Range: 81-99 HCT 44.1 % (Normal) Range: 37-47 HGB 14.9 g/dL (Normal) Range: 12.0-15.0 RBC 4.96 {M/mm3} (Normal) Range: 4.2-5.4 WBC 10.3 K/mm3 (Normal) Range: 4.4-11.0 :45 Lipase Comments: Test performed at:[facility] [address] [facility] [place] [address] LIPASE 229 U/L (Normal) Range: 70-290 :45 Liver Profile Comments: Test performed at:[facility] [address] [place] [address] D BILI 0.11 mg/dL (Normal) Range: 0.00-0.30 T BILI 0.60 mg/dL (Normal) Range: 0.20-1.00 ALT 22 U/L (Normal) Range: 12-78 ALK P 103 U/L (Normal) Range: 50-136 AST 19 U/L (Normal) Range: 15-37 GLOB 5.3 g/dL (Abnormal) Range: 2.7-4.2 ALB 4.0 g/dL (Normal) Range: 3.4-5.0 T PROT 9.3 g/dL (Abnormal) Range: 6.4-8.2 :04 HgA1C , Office (10513) HgA1C , Office 6.2 % (Normal) Range: 4.6 - 7.1 :04 Blood Glucose , Office (40784) Blood Glucose , Office 124 (Normal) :39 CBC With Differential/Platelet Comments: PATIENT WAS FASTINGPERFORMED BY: [facility] for RehabilitationBorkxh0881 [facility] [id number] Information: [id number] Immature Grans (Abs) 0.0 {x10E3/uL} (Normal) Range: 0.0-0.1 Immature Granulocytes 0 % (Normal) Baso (Absolute) 0.0 {x10E3/uL} (Normal) Range: 0.0-0.2 Eos (Absolute) 0.1 {x10E3/uL} (Normal) Range: 0.0-0.4 Monocytes(Absolute) 0.6 {x10E3/uL} (Normal) Range: 0.1-0.9 Lymphs (Absolute) 4.3 {x10E3/uL} (Abnormal) Range: 0.7-3.1 Neutrophils (Absolute) 3.3 {x10E3/uL} (Normal) Range: 1.4-7.0 Basos 0 % (Normal) Eos 1 % (Normal) Monocytes 7 % (Normal) Lymphs 52 % (Normal) Neutrophils 40 % (Normal) Platelets 312 {x10E3/uL} (Normal) Range: 150-379 RDW 13.7 % (Normal) Range: 12.3-15.4 MCHC 34.0 g/dL (Normal) Range: 31.5-35.7 MCH 29.6 pg (Normal) Range: 26.6-33.0 MCV 87 fL (Normal) Range: 79-97 Hematocrit 38.5 % (Normal) Range: 34.0-46.6 Hemoglobin 13.1 g/dL (Normal) Range: 11.1-15.9 RBC 4.43 {x10E6/uL} (Normal) Range: 3.77-5.28 WBC 8.3 {x10E3/uL} (Normal) Range: 3.4-10.8 [id number] Comp. Metabolic Panel (14) Comments: PATIENT WAS FASTINGPERFORMED BY: [facility] [id number] [facility] [id number] ALT (SGPT) 14 [iU]/L (Normal) Range: 0-32 AST (SGOT) 17 [iU]/L (Normal) Range: 0-40 Alkaline Phosphatase, S 84 [iU]/L (Normal) Range: 39-117 Bilirubin, Total 0.4 mg/dL (Normal) Range: 0.0-1.2 A/G Ratio 1.2 (Normal) Range: 1.1-2.5 Globulin, Total 3.7 g/dL (Normal) Range: 1.5-4.5 Albumin, Serum 4.3 g/dL (Normal) Range: 3.5-5.5 Protein, Total, Serum 8.0 g/dL (Normal) Range: 6.0-8.5 Calcium, Serum 10.0 mg/dL (Normal) Range: 8.7-10.2 Carbon Dioxide, Total 22 mmol/L (Normal) Range: 18-29 Chloride, Serum 104 mmol/L (Normal) Range: 97-108 Potassium, Serum 4.0 mmol/L (Normal) Range: 3.5-5.2 Sodium, Serum 142 mmol/L (Normal) Range: 134-144 BUN/Creatinine Ratio 13 (Normal) Range: 9-23 eGFR If Africn Am 57 mL/min/1.73 (Abnormal) eGFR If NonAfricn Am 49 mL/min/1.73 (Abnormal) Creatinine, Serum 1.24 mg/dL (Abnormal) Range: 0.57-1.00 BUN 16 mg/dL (Normal) Range: 6-24 Glucose, Serum 88 mg/dL (Normal) Range: 65-99 [id number] Lipid Panel With LDL/HDL Comments: PATIENT WAS FASTINGPERFORMED BY: [employer] [facility] [id number] Ratio LDL/HDL Ratio 3.2 {ratio_units} (Normal) Range: 0.0-3.2 Comments: LDL/HDL Ratio Men Women 1/2 Avg.Risk 1.0 1.5 Av g.Risk 3.6 3.2 2X Avg.Risk 6.2 5.0 3X Avg.Risk 8.0 6.1 LDL Cholesterol Calc 146 mg/dL (Abnormal) Range: 0-99 VLDL Cholesterol Daniel 38 mg/dL (Normal) Range: 5-40 HDL Cholesterol 45 mg/dL (Normal) Comments: According to ATP-III Guidelines, HDL-C >59 mg/dL is considered anegative risk factor for CHD. Triglycerides 188 mg/dL (Abnormal) Range: 0-149 Cholesterol, Total 229 mg/dL (Abnormal) Range: 100-199 :39 Microalb/Creat Ratio, Randm Ur Comments: PATIENT WAS FASTINGPERFORMED BY: [employer] [id number] [facility] [id number] Microalb/Creat Ratio 9.6 {mg/g_creat} (Normal) Range: 0.0-30.0 Microalbumin, Urine 25.3 ug/mL (Abnormal) Range: 0.0-17.0 Creatinine, Urine 263.9 mg/dL (Normal) Range: 15.0-278.0 [id number]-[id number]:39 Microscopic Examination Comments: PATIENT WAS FASTINGPERFORMED BY: SpreecastRUSTWrjaqv7916 [facility] [id number] Bacteria Few (Normal) Mucus Threads Present (Normal) Epithelial Cells (non 0-10 {/hpf} Range: 0 - 10 renal) (Normal) RBC 0-2 {/hpf} (Normal) Range: 0 - 2 WBC 11-30 {/hpf} Range: 0 - 5 (Abnormal) TSH 2.990 {uIU/mL} Comments: PATIENT WAS FASTINGPERFORMED BY: [facility]6370 [facility] [id number] 5:39 (Normal) Range: 0.450-4.500 05-Ffi-452778:39 Urinalysis, Complete Comments: PATIENT WAS FASTINGPERFORMED BY: [facility]6370 [facility] [id number] Microscopic Examination See below: (Normal) Comments: Microscopic was indicated and was performed. Nitrite, Urine Negative (Normal) Urobilinogen,Semi-Qn 0.2 mg/dL (Normal) Range: 0.0-1.9 Bilirubin Negative (Normal) Occult Blood Negative (Normal) Ketones Negative (Normal) Glucose Negative (Normal) Protein Negative (Normal) WBC Esterase 1+ (Abnormal) Appearance Clear (Normal) Urine-Color Yellow (Normal) pH 5.0 (Normal) Range: 5.0-7.5 Specific [place] 1.025 (Normal) Range: 1.005-1.030 Vitamin D, 25-Hydroxy 85.8 ng/mL (Normal) Comments: PATIENT WAS FASTINGPERFORMED BY: [facility]6370 [facility] [id number] 5:39 Range: 30.0-100.0 Comments: Vitamin D deficiency has been defined by the [place] [facility] and an Endocrine Society practice guideline as alevel of serum 25-OH vitamin D less than 20 ng/mL (1,2).The Endocrine Society went on to further define vitamin Dinsufficiency as a level between 21 and 29 ng/mL (2).1. IOM ([place] of Medicine). 2010. Dietary reference intakes for calcium and D. Real [place]: The National Academies Press.2. Mekhi MF, [place], [place]ans[place] HERNDON, et al. Evaluation, treatment, and prevention of vitamin D deficiency: an Endocrine Society clinical practice guideline. JCEM. 2010; 96(7):1911-30. :49 CBC W/Diff, Automated Comments: Test performed at:[facility] [address] [place] [address] Absolute Lymph 3.72 {X10_3/ul} (Normal) Range: 0.83-4.51 Absolute Neut 3.6 {X10_3/uL} (Normal) Range: 2.0-7.7 IM GRAN % 0.400 % (Normal) Range: 0.0-0.9 Comments: IG% - Immature Granulocytes (promyelocytes, myelocytes andmetamyelocytes) > 1% indicates that a LEFT SHIFT is Present. BASO% 0.2 % (Normal) Range: 0-1 EO% 1.8 % (Normal) Range: 0-5 MONO% 8.3 % (Normal) Range: 0-10 LY% 45.4 % (Abnormal) Range: 19-41 NEUT% 43.9 % (Abnormal) Range: 47-70 MPV 9.5 fL (Normal) Range: 6.2-12.0 PLT 297 K/mm3 (Normal) Range: 150-450 RDW SD 41.6 fL (Normal) Range: 35.1-43.9 RDW CV 12.7 % (Normal) Range: 11.6-14.6 MCHC 31.8 {g/gl} (Abnormal) Range: 32-36 MCH 28.9 pg (Normal) Range: 27.0-32.0 MCV 90.7 fL (Normal) Range: 81-99 HCT 38.0 % (Normal) Range: 37-47 HGB 12.1 g/dL (Normal) Range: 12.0-15.0 RBC 4.19 {M/mm3} (Abnormal) Range: 4.2-5.4 WBC 8.2 K/mm3 (Normal) Range: 4.4-11.0 :49 Comprehensive Metabolic Profil Comments: Test performed at:[facility] [address] [facility] [place] [address] GAP 7 (Normal) Range: 5-15 CO2 30.0 mmol/L (Normal) Range: 21.0-32.0 CL 101 mmol/L (Normal) Range: 98-107 K 3.8 mmol/L (Normal) Range: 3.5-5.1 NA 138 mmol/L (Normal) Range: 136-145 T BILI 0.40 mg/dL (Normal) Range: 0.00-4.00 ALT 18 U/L (Normal) Range: 12-78 ALK P 90 U/L (Normal) Range: 50-136 AST 14 U/L (Abnormal) Range: 15-37 CA 9.3 mg/dL (Normal) Range: 8.5-10.1 A/G 0.7 {RATIO} (Abnormal) Range: 0.9-2.4 GLOB 5.0 g/dL (Abnormal) Range: 2.7-4.2 ALB 3.5 g/dL (Normal) Range: 3.4-5.0 T PROT 8.5 g/dL (Abnormal) Range: 6.4-8.2 BUN/CRE 13.3 {RATIO} (Normal) Range: 10-20 EST GFR - AA 61 mL/min (Normal) EST GFR 50 mL/min (Abnormal) CREAT,SERUM 1.2 mg/dL (Abnormal) Range: 0.6-1.0 BUN 16 mg/dL (Normal) Range: 7-18 GLU 129 mg/dL (Abnormal) Range: 70-110 Comments: Fasting Glucose result greater than or equal to 126 mg/dLsuggests DIABETES MELLITUS per A.D.A. criteria. 7-Jqj-848992:31 Sed Rate Erythrocyte ([id number]) Comments: PATIENT NOT FASTINGPERFORMED BY: [facility]CoB[facility] for RehabilitationJycpfg0406 [facility] [id number] Sedimentation Rate-Westergren 33 mm/h (Normal) Range: 0-40 5-Iyg-371832:31 METABOLIC PANEL, COMPREHENSIVE Comments: PATIENT NOT FASTINGPERFORMED BY: [facility]CoBacharach Institute for RehabilitationCyyisa3392 [facility] [id number] (76396) ALT (SGPT) 14 [iU]/L (Normal) Range: 0-32 AST (SGOT) 16 [iU]/L (Normal) Range: 0-40 Alkaline Phosphatase, S 78 [iU]/L (Normal) Range: 39-117 Bilirubin, Total 0.3 mg/dL (Normal) Range: 0.0-1.2 A/G Ratio 1.3 (Normal) Range: 1.1-2.5 Globulin, Total 3.5 g/dL (Normal) Range: 1.5-4.5 Albumin, Serum 4.6 g/dL (Normal) Range: 3.5-5.5 Protein, Total, Serum 8.1 g/dL (Normal) Range: 6.0-8.5 Calcium, Serum 10.3 mg/dL (Abnormal) Range: 8.7-10.2 Carbon Dioxide, Total 28 mmol/L (Normal) Range: 18-29 Chloride, Serum 98 mmol/L (Normal) Range: 97-108 Potassium, Serum 3.9 mmol/L (Normal) Range: 3.5-5.2 Sodium, Serum 140 mmol/L (Normal) Range: 134-144 BUN/Creatinine Ratio 15 (Normal) Range: 9-23 eGFR If Africn Am 62 mL/min/1.73 (Normal) eGFR If NonAfricn Am 54 mL/min/1.73 (Abnormal) Creatinine, Serum 1.15 mg/dL (Abnormal) Range: 0.57-1.00 BUN 17 mg/dL (Normal) Range: 6-24 Glucose, Serum 107 mg/dL (Abnormal) Range: 65-99 6-Lgn-763897:31 CBC W/AUTO DIFF WBC Comments: PATIENT NOT FASTINGPERFORMED BY: [facility] Wmrryy5105 [facility] [id number] Information: [id number] (80209) Immature Grans (Abs) 0.0 {x10E3/uL} (Normal) Range: 0.0-0.1 Immature Granulocytes 0 % (Normal) Baso (Absolute) 0.0 {x10E3/uL} (Normal) Range: 0.0-0.2 Eos (Absolute) 0.1 {x10E3/uL} (Normal) Range: 0.0-0.4 Monocytes(Absolute) 0.7 {x10E3/uL} (Normal) Range: 0.1-0.9 Lymphs (Absolute) 2.8 {x10E3/uL} (Normal) Range: 0.7-3.1 Neutrophils (Absolute) 4.4 {x10E3/uL} (Normal) Range: 1.4-7.0 Basos 0 % (Normal) Eos 1 % (Normal) Monocytes 9 % (Normal) Lymphs 35 % (Normal) Neutrophils 55 % (Normal) Platelets 275 {x10E3/uL} (Normal) Range: 150-379 RDW 13.1 % (Normal) Range: 12.3-15.4 MCHC 33.1 g/dL (Normal) Range: 31.5-35.7 MCH 29.4 pg (Normal) Range: 26.6-33.0 MCV 89 fL (Normal) Range: 79-97 Hematocrit 40.5 % (Normal) Range: 34.0-46.6 Hemoglobin 13.4 g/dL (Normal) Range: 11.1-15.9 RBC 4.56 {x10E6/uL} (Normal) Range: 3.77-5.28 WBC 8.1 {x10E3/uL} (Normal) Range: 3.4-10.8 :18 HgA1C , Office (83587) HgA1C , Office 6.2 % (Normal) Range: 4.6 - 7.1 :18 Blood Glucose , Office (34905) Blood Glucose , Office 131 (Normal) :12 CBC W/AUTO DIFF WBC Comments: PATIENT WAS FASTINGPERFORMED BY: [facility]CoB[facility] Institute for RehabilitationJtrynu9420 [facility] [id number] Information: [id number] (61697) Immature Grans (Abs) 0.0 {x10E3/uL} (Normal) Range: 0.0-0.1 Immature Granulocytes 0 % (Normal) Baso (Absolute) 0.0 {x10E3/uL} (Normal) Range: 0.0-0.2 Eos (Absolute) 0.2 {x10E3/uL} (Normal) Range: 0.0-0.4 Monocytes(Absolute) 0.6 {x10E3/uL} (Normal) Range: 0.1-0.9 Lymphs (Absolute) 3.3 {x10E3/uL} (Abnormal) Range: 0.7-3.1 Neutrophils (Absolute) 2.3 {x10E3/uL} (Normal) Range: 1.4-7.0 Basos 0 % (Normal) Eos 2 % (Normal) Monocytes 9 % (Normal) Lymphs 53 % (Normal) Neutrophils 36 % (Normal) Platelets 215 {x10E3/uL} (Normal) Range: 150-379 RDW 13.1 % (Normal) Range: 12.3-15.4 MCHC 32.9 g/dL (Normal) Range: 31.5-35.7 MCH 30.2 pg (Normal) Range: 26.6-33.0 MCV 92 fL (Normal) Range: 79-97 Hematocrit 34.3 % (Normal) Range: 34.0-46.6 Hemoglobin 11.3 g/dL (Normal) Range: 11.1-15.9 RBC 3.74 {x10E6/uL} (Abnormal) Range: 3.77-5.28 WBC 6.4 {x10E3/uL} (Normal) Range: 3.4-10.8 :12 METABOLIC PANEL, COMPREHENSIVE Comments: PATIENT WAS FASTINGPERFORMED BY: [facility]CoB[facility]ar[facility] Institute for RehabilitationFgsftz4215 [facility] [id number] (18400) ALT (SGPT) 28 [iU]/L (Normal) Range: 0-32 AST (SGOT) 24 [iU]/L (Normal) Range: 0-40 Alkaline Phosphatase, S 51 [iU]/L (Normal) Range: 39-117 Bilirubin, Total 0.4 mg/dL (Normal) Range: 0.0-1.2 A/G Ratio 1.5 (Normal) Range: 1.1-2.5 Globulin, Total 2.8 g/dL (Normal) Range: 1.5-4.5 Albumin, Serum 4.1 g/dL (Normal) Range: 3.5-5.5 Protein, Total, Serum 6.9 g/dL (Normal) Range: 6.0-8.5 Calcium, Serum 9.6 mg/dL (Normal) Range: 8.7-10.2 Carbon Dioxide, Total 26 mmol/L (Normal) Range: 18-29 Chloride, Serum 103 mmol/L (Normal) Range: 97-108 Potassium, Serum 4.1 mmol/L (Normal) Range: 3.5-5.2 Sodium, Serum 143 mmol/L (Normal) Range: 134-144 BUN/Creatinine Ratio 15 (Normal) Range: 9-23 eGFR If Africn Am 64 mL/min/1.73 (Normal) eGFR If NonAfricn Am 56 mL/min/1.73 (Abnormal) Creatinine, Serum 1.12 mg/dL (Abnormal) Range: 0.57-1.00 BUN 17 mg/dL (Normal) Range: 6-24 Glucose, Serum 89 mg/dL (Normal) Range: 65-99 :12 LIPID PANEL (89891) Comments: PATIENT WAS FASTINGPERFORMED BY: [facility] Gncesy7976 [facility] [id number] LDL/HDL Ratio 1.9 {ratio_units} (Normal) Range: 0.0-3.2 Comments: LDL/HDL Ratio Men Women 1/2 Avg.Risk 1.0 1.5 Av g.Risk 3.6 3.2 2X Avg.Risk 6.2 5.0 3X Avg.Risk 8.0 6.1 LDL Cholesterol Calc 57 mg/dL (Normal) Range: 0-99 VLDL Cholesterol Daniel 49 mg/dL (Abnormal) Range: 5-40 HDL Cholesterol 30 mg/dL (Abnormal) Comments: According to ATP-III Guidelines, HDL-C >59 mg/dL is considered anegative risk factor for CHD. Triglycerides 243 mg/dL (Abnormal) Range: 0-149 Cholesterol, Total 136 mg/dL (Normal) Range: 100-199 :44 HgA1C , Office (00109) HgA1C , Office 6.1 % (Normal) Range: 4.6 - 7.1 4-Jtp-616519:24 CBCD ALC 2.61 {X10_3/ul} (Normal) Range: 0.83-4.51 ANC 1.4 {X10_3/uL} (Abnormal) Range: 2.0-7.7 IG% 0.000 % (Normal) Range: 0.0-0.9 Comments: IG% - Immature Granulocytes (promyelocytes, myelocytes andmetamyelocytes) > 1% indicates that a LEFT SHIFT is Present. B% 0.2 % (Normal) Range: 0-1 E% 0.9 % (Normal) Range: 0-5 M% 10.2 % (Abnormal) Range: 0-10 L% 57.7 % (Abnormal) Range: 19-41 N% 31.0 % (Abnormal) Range: 47-70 MPV 10.0 fL (Normal) Range: 6.2-12.0 PLT 178 K/mm3 (Normal) Range: 150-450 RDWSD 42.2 fL (Normal) Range: 35.1-43.9 RDWCV 12.5 % (Normal) Range: 11.6-14.6 MCHC 32.5 {g/gl} (Normal) Range: 32-36 MCH 30.7 pg (Normal) Range: 27.0-32.0 MCV 94.3 fL (Normal) Range: 81-99 HCT 36.6 % (Abnormal) Range: 37-47 HGB 11.9 g/dL (Abnormal) Range: 12.0-15.0 RBC 3.88 {M/mm3} (Abnormal) Range: 4.2-5.4 WBC 4.5 K/mm3 (Normal) Range: 4.4-11.0 :24 CMP GAP 5 (Normal) Range: 5-15 CO2 33.0 mmol/L (Abnormal) Range: 21.0-32.0 CL 101 mmol/L (Normal) Range: 98-107 K 3.7 mmol/L (Normal) Range: 3.5-5.1 NA 139 mmol/L (Normal) Range: 136-145 BIT 0.30 mg/dL (Normal) Range: 0.00-4.00 ALT 54 U/L (Normal) Range: 12-78 ALK 61 U/L (Normal) Range: 50-136 AST 43 U/L (Abnormal) Range: 15-37 CA 9.3 mg/dL (Normal) Range: 8.5-10.1 AG 0.8 {RATIO} (Abnormal) Range: 0.9-2.4 GLOB 4.3 g/dL (Abnormal) Range: 2.7-4.2 ALB 3.4 g/dL (Normal) Range: 3.4-5.0 TPROT 7.7 g/dL (Normal) Range: 6.4-8.2 BC 12.9 {RATIO} (Normal) Range: 10-20 GFRAA 51 mL/min (Abnormal) GFR 42 mL/min (Abnormal) CREAT 1.4 mg/dL (Abnormal) Range: 0.6-1.0 BUN 18 mg/dL (Normal) Range: 7-18 GLU 90 mg/dL (Normal) Range: 70-110 :36 HgA1C , Office (35369) HgA1C , Office 7.5 % (Abnormal) Range: 4.6 - 7.1 :36 Blood Glucose , Office (39805) Blood Glucose , Office 150 (Normal) :05 CALCIFIDIOL (43526) VIT D 25 Comments: PATIENT WAS FASTINGPERFORMED BY: [facility]CoB[facility] Institute for RehabilitationZdmrtp0020 [facility] [id number] Vitamin D, 25-Hydroxy 75.4 ng/mL (Normal) Range: 30.0-100.0 Comments: Vitamin D deficiency has been defined by the [place] ofMedicine and an Endocrine Society practice guideline as alevel of serum 25-OH vitamin D less than 20 ng/mL (1,2).The Endocrine Society went on to further define vitamin Dinsufficiency as a level between 21 and 29 ng/mL (2).1. IOM ([place] of Medicine). 2010. Dietary reference intakes for calcium and D. Real [place]: The National Academies Press.2. Mekhi MF, [place], [place] HERNDON, et al. Evaluation, treatment, and prevention of vitamin D deficiency: an Endocrine Society clinical practice guideline. JCEM. 2010; 96(7):1911-30. 8-Ske-265574:05 LIPID PANEL (22836) Comments: PATIENT WAS FASTINGPERFORMED BY: [facility]CoB[facility] Institute for RehabilitationSlkjyu9878 [facility] [id number] Information: [id number] LDL/HDL Ratio 3.4 {ratio_units} (Abnormal) Range: 0.0-3.2 Comments: LDL/HDL Ratio Men Women 1/2 Avg.Risk 1.0 1.5 Av g.Risk 3.6 3.2 2X Avg.Risk 6.2 5.0 3X Avg.Risk 8.0 6.1 LDL Cholesterol Calc 149 mg/dL (Abnormal) Range: 0-99 VLDL Cholesterol Daniel 39 mg/dL (Normal) Range: 5-40 HDL Cholesterol 44 mg/dL (Normal) Comments: According to ATP-III Guidelines, HDL-C >59 mg/dL is considered anegative risk factor for CHD. Triglycerides 195 mg/dL (Abnormal) Range: 0-149 Cholesterol, Total 232 mg/dL (Abnormal) Range: 100-199 60-Djy-564882:51 CBCD ALC 3.00 {X10_3/ul} (Normal) Range: 0.83-4.51 ANC 3.2 {X10_3/uL} (Normal) Range: 2.0-7.7 B% 0.4 % (Normal) Range: 0-1 IG% 0.100 % (Normal) Range: 0.0-0.9 Comments: IG% - Immature Granulocytes (promyelocytes, myelocytes andmetamyelocytes) > 1% indicates that a LEFT SHIFT is Present. E% 2.0 % (Normal) Range: 0-5 M% 8.0 % (Normal) Range: 0-10 L% 43.4 % (Abnormal) Range: 19-41 N% 46.1 % (Abnormal) Range: 47-70 MPV 10.0 fL (Normal) Range: 6.2-12.0 PLT 282 K/mm3 (Normal) Range: 150-450 RDWSD 40.0 fL (Normal) Range: 35.1-43.9 RDWCV 12.2 % (Normal) Range: 11.6-14.6 MCHC 33.9 {g/gl} (Normal) Range: 32-36 MCH 31.2 pg (Normal) Range: 27.0-32.0 HCT 38.3 % (Normal) Range: 37-47 MCV 91.8 fL (Normal) Range: 81-99 HGB 13.0 g/dL (Normal) Range: 12.0-15.0 RBC 4.17 {M/mm3} (Abnormal) Range: 4.2-5.4 WBC 6.9 K/mm3 (Normal) Range: 4.4-11.0 88-Ibb-502726:51 CMP GAP 5 (Normal) Range: 5-15 CO2 31.0 mmol/L (Normal) Range: 21.0-32.0 CL 101 mmol/L (Normal) Range: 98-107 K 3.4 mmol/L (Abnormal) Range: 3.5-5.1 NA 137 mmol/L (Normal) Range: 136-145 BIT 0.50 mg/dL (Normal) Range: 0.00-1.00 ALT 62 U/L (Normal) Range: 12-78 ALK 66 U/L (Normal) Range: 45-117 AST 48 U/L (Abnormal) Range: 15-37 CA 9.6 mg/dL (Normal) Range: 8.5-10.1 AG 0.8 {RATIO} (Abnormal) Range: 0.9-2.4 GLOB 4.6 g/dL (Abnormal) Range: 2.7-4.2 ALB 3.7 g/dL (Normal) Range: 3.4-5.0 TPROT 8.3 g/dL (Abnormal) Range: 6.4-8.2 BC 11.4 {RATIO} (Normal) Range: 10-20 GFRAA 51 mL/min (Abnormal) GFR 42 mL/min (Abnormal) CREAT 1.4 mg/dL (Abnormal) Range: 0.6-1.0 BUN 16 mg/dL (Normal) Range: 7-18 GLU 154 mg/dL (Abnormal) Range: 70-110 Comments: Fasting Glucose result greater than or equal to 126 mg/dLsuggests DIABETES MELLITUS per A.D.A. criteria. :52 DEQOL-BMOLMMNAMJY-ILTBP (79254) Comments: PATIENT NOT FASTINGPERFORMED BY: [address] [id number] AFP, Serum, Tumor Marker 1.9 ng/mL (Normal) Range: 0.0-8.3 Comments: Aric ECLIA methodology :52 PTT (Activated Partial Comments: PATIENT NOT FASTINGPERFORMED BY: [facility]6370 [facility] [id number] Thromboplastin Time) (92770) aPTT 28 {sec} (Normal) Range: 24-33 Comments: This test has not been validated for monitoring unfractionated heparintherapy. aPTT-based therapeutic ranges for unfractionated heparintherapy have not been established. For general guidelines onHeparin monitoring, refer to the [facility] Directory of Services. :52 PT (Prothrobim Time) Comments: PATIENT NOT FASTINGPERFORMED BY: [address] [id number] Information: [id number] (30199) Prothrombin Time 11.1 {sec} (Normal) Range: 9.1-12.0 INR 1.1 (Normal) Range: 0.8-1.2 Comments: Reference interval is for non-anticoagulated patients. . Suggested INR therapeutic range for Vitamin K anta gonist therapy: Standard Dose (moderate intensity therapeutic range): 2.0 - 3.0 Higher intensity therapeutic range 2.5 - 3.5 79-Kzo-621902:05 Microscopic Examination Comments: PATIENT WAS FASTINGPERFORMED BY: [employer] Tnsrzf6527 Aleman RoadDublin [place] [id number] Bacteria Few (Normal) Mucus Threads Present (Normal) Epithelial Cells (non renal) 0-10 {/hpf} (Normal) Range: 0 - 10 RBC 0-3 {/hpf} (Normal) Range: 0 - 3 Comments: Effective January 10, 2014 the reference interval for RBC will be changing to: 0 - 2 /hpf. WBC 11-30 {/hpf} (Abnormal) Range: 0 - 5 03-Pwv-82050:00 Vitamin D Hydroxy (41913) Comments: PATIENT WAS FASTINGPERFORMED BY: [employer] Yxblqj9696 [address] [facility] HospitalDublin [place] [id number] Vitamin D, 25-Hydroxy 16.4 ng/mL (Abnormal) Range: 30.0-100.0 Comments: Vitamin D deficiency has been defined by the [facility] of[facility]ec[facility] and an Endocrine Society practice guideline as alevel of serum 25-OH vitamin D less than 20 ng/mL (1,2).The Endocrine Society went on to further define vitamin Dinsufficiency as a level between 21 and 29 ng/mL (2).1. IOM ([place]ells of Medicine). 2010. Dietary reference intakes for calcium and D. Real [place]: The National Academies Press.2. Mekhi MF, [place], [place] HERNDON, et al. Evaluation, treatment, and prevention of vitamin D deficiency: an Endocrine Society clinical practice guideline. JCEM. 2010; 96(7):1911-30. :00 TSH (62246) Comments: PATIENT WAS FASTINGPERFORMED BY: [facility] Kpxmkf7214 Aleman RoadDublin [place] [id number] TSH 2.300 {uIU/mL} (Normal) Range: 0.450-4.500 68-Ohu-65105:00 URINALYSIS, W/ MICRO (73281) Comments: PATIENT WAS FASTINGPERFORMED BY: [facility]6370 [facility] [id number] Microscopic Examination See below: (Normal) Nitrite, Urine Negative (Normal) Urobilinogen,Semi-Qn 0.2 mg/dL (Normal) Range: 0.0-1.9 Bilirubin Negative (Normal) Ketones Negative (Normal) Occult Blood Negative (Normal) Glucose Negative (Normal) Protein Negative (Normal) WBC Esterase 2+ (Abnormal) Appearance Clear (Normal) Urine-Color Yellow (Normal) pH 5.5 (Normal) Range: 5.0-7.5 Specific [place] 1.020 (Normal) Range: 1.005-1.030 : MICROALBUMIN: CREATININE RATIO Comments: PATIENT WAS FASTINGPERFORMED BY: [facility]6370 [facility] [id number] (91838) AND (36489) Microalb/Creat Ratio 17.6 {mg/g_creat} (Normal) Range: 0.0-30.0 Microalbumin, Urine 23.6 ug/mL (Abnormal) Range: 0.0-17.0 Creatinine, Urine 134.3 mg/dL (Normal) Range: 15.0-328.0 METABOLIC PANEL, COMPREHENSIVE Comments: PATIENT WAS FASTINGPERFORMED BY: [facility]6370 [facility] [id number] (60040) ALT (SGPT) 32 [iU]/L (Normal) Range: 0-32 AST (SGOT) 36 [iU]/L (Normal) Range: 0-40 Alkaline Phosphatase, S 61 [iU]/L (Normal) Range: 39-117 Bilirubin, Total 0.4 mg/dL (Normal) Range: 0.0-1.2 A/G Ratio 1.3 (Normal) Range: 1.1-2.5 Globulin, Total 3.2 g/dL (Normal) Range: 1.5-4.5 Albumin, Serum 4.3 g/dL (Normal) Range: 3.5-5.5 Protein, Total, Serum 7.5 g/dL (Normal) Range: 6.0-8.5 Calcium, Serum 9.7 mg/dL (Normal) Range: 8.7-10.2 Carbon Dioxide, Total 25 mmol/L (Normal) Range: 19-28 Chloride, Serum 99 mmol/L (Normal) Range: 97-108 Potassium, Serum 3.8 mmol/L (Normal) Range: 3.5-5.2 Sodium, Serum 140 mmol/L (Normal) Range: 134-144 BUN/Creatinine Ratio 13 (Normal) Range: 9-23 eGFR If Africn Am 55 mL/min/1.73 (Abnormal) eGFR If NonAfricn Am 48 mL/min/1.73 (Abnormal) Creatinine, Serum 1.28 mg/dL (Abnormal) Range: 0.57-1.00 BUN 16 mg/dL (Normal) Range: 6-24 Glucose, Serum 131 mg/dL (Abnormal) Range: 65-99 :00 LIPID PANEL (33875) Comments: PATIENT WAS FASTINGPERFORMED BY: [employer] [facility] [id number] LDL/HDL Ratio 2.8 {ratio_units} (Normal) Range: 0.0-3.2 LDL Cholesterol Calc 119 mg/dL (Abnormal) Range: 0-99 VLDL Cholesterol Daniel 43 mg/dL (Abnormal) Range: 5-40 HDL Cholesterol 43 mg/dL (Normal) Comments: According to ATP-III Guidelines, HDL-C >59 mg/dL is considered anegative risk factor for CHD. Triglycerides 216 mg/dL (Abnormal) Range: 0-149 Cholesterol, Total 205 mg/dL (Abnormal) Range: 100-199 :00 CBC WITH MANUAL DIFF Comments: PATIENT WAS FASTINGPERFORMED BY: [employer]6370 [facility] [id number] Information: [id number] (84444) Immature Grans (Abs) 0.0 {x10E3/uL} (Normal) Range: 0.0-0.1 Immature Granulocytes 0 % (Normal) Range: 0-2 Baso (Absolute) 0.0 {x10E3/uL} (Normal) Range: 0.0-0.2 Eos (Absolute) 0.2 {x10E3/uL} (Normal) Range: 0.0-0.4 Monocytes(Absolute) 0.8 {x10E3/uL} (Normal) Range: 0.1-0.9 Lymphs (Absolute) 3.4 {x10E3/uL} (Abnormal) Range: 0.7-3.1 Neutrophils (Absolute) 3.3 {x10E3/uL} (Normal) Range: 1.4-7.0 Basos 1 % (Normal) Range: 0-3 Eos 3 % (Normal) Range: 0-5 Monocytes 10 % (Normal) Range: 4-12 Lymphs 43 % (Normal) Range: 14-46 Neutrophils 43 % (Normal) Range: 40-74 Platelets 250 {x10E3/uL} (Normal) Range: 155-379 RDW 12.8 % (Normal) Range: 12.3-15.4 MCHC 33.3 g/dL (Normal) Range: 31.5-35.7 MCH 30.7 pg (Normal) Range: 26.6-33.0 MCV 92 fL (Normal) Range: 79-97 Hematocrit 35.7 % (Normal) Range: 34.0-46.6 Hemoglobin 11.9 g/dL (Normal) Range: 11.1-15.9 RBC 3.87 {x10E6/uL} (Normal) Range: 3.77-5.28 WBC 7.8 {x10E3/uL} (Normal) Range: 3.4-10.8 :55 HgA1C , Office (60947) HgA1C , Office 6.6 % (Normal) Range: 4.6 - 7.1 :55 Blood Glucose , Office (23798) Blood Glucose , Office 169 (Normal) :22 HgA1C , Office (61128) HgA1C , Office 6.3 % (Normal) Range: 4.6 - 7.1 :22 Blood Glucose , Office (34912) Blood Glucose , Office 131 (Normal) 23-[id number]:16 TSH (21054) Comments: PATIENT WAS FASTINGPERFORMED BY: [facility] [id number] [facility] [id number] TSH 2.790 {uIU/mL} (Normal) Range: 0.450-4.500 59-Huw-[id number]:16 Lipid Panel (88766) Comments: PATIENT WAS FASTINGPERFORMED BY: [id number] [facility] [id number] Information: ADD [id number] AND DRAW FEE 99 6660 LDL/HDL Ratio 2.8 {ratio_units} (Normal) Range: 0.0-3.2 LDL Cholesterol Calc 130 mg/dL (Abnormal) Range: 0-99 VLDL Cholesterol Daniel 30 mg/dL (Normal) Range: 5-40 HDL Cholesterol 47 mg/dL (Normal) Comments: According to ATP-III Guidelines, HDL-C >59 mg/dL is considered anegative risk factor for CHD. Triglycerides 151 mg/dL (Abnormal) Range: 0-149 Cholesterol, Total 207 mg/dL (Abnormal) Range: 100-199 [id number] Microscopic Examination Comments: PATIENT NOT FASTINGPERFORMED BY: [email or web address] [id number] [facility] [id number] Bacteria None seen (Normal) Mucus Threads Present (Normal) Epithelial Cells (non renal) 0-10 {/hpf} (Normal) Range: 0 - 10 RBC None seen {/hpf} (Normal) Range: 0 - 3 WBC 11-30 {/hpf} (Abnormal) Range: 0 - 5 7-Kfe-114193:34 TSH (14188) Comments: PATIENT NOT FASTINGPERFORMED BY: [email or web address] [id number] [facility] [id number] TSH 2.010 {uIU/mL} (Normal) Range: 0.450-4.500 6-Hin-405099:34 URINALYSIS, W/ MICRO (13991) Comments: PATIENT NOT FASTINGPERFORMED BY: [employer] [id number] [facility] [id number] Microscopic Examination See below: (Normal) Nitrite, Urine Negative (Normal) Bilirubin Negative (Normal) Urobilinogen,Semi-Qn 0.2 mg/dL (Normal) Range: 0.0-1.9 Occult Blood Negative (Normal) Glucose Negative (Normal) Ketones Negative (Normal) Protein Negative (Normal) WBC Esterase Trace (Abnormal) Appearance Clear (Normal) Urine-Color Yellow (Normal) pH 5.5 (Normal) Range: 5.0-7.5 Specific [place] 1.020 (Normal) Range: 1.005-1.030 :34 MICROALBUMIN: CREATININE RATIO Comments: PATIENT NOT FASTINGPERFORMED BY: [email or web address] [id number] [facility] [id number] ([id number]) AND (39987) Microalb/Creat Ratio 4.2 {mg/g_creat} (Normal) Range: 0.0-30.0 Microalbumin, Urine 6.3 ug/mL (Normal) Range: 0.0-17.0 Creatinine, Urine 150.8 mg/dL (Normal) Range: 15.0-278.0 :34 METABOLIC PANEL, COMPREHENSIVE Comments: PATIENT NOT FASTINGPERFORMED BY: [id number] [facility] [id number] (19828) ALT (SGPT) 73 [iU]/L (Abnormal) Range: 0-32 AST (SGOT) 64 [iU]/L (Abnormal) Range: 0-40 Alkaline Phosphatase, S 66 [iU]/L (Normal) Range: 39-117 Comments: Please note reference interval change A/G Ratio 1.4 (Normal) Range: 1.1-2.5 Bilirubin, Total 0.5 mg/dL (Normal) Range: 0.0-1.2 Globulin, Total 3.0 g/dL (Normal) Range: 1.5-4.5 Albumin, Serum 4.3 g/dL (Normal) Range: 3.5-5.5 Protein, Total, Serum 7.3 g/dL (Normal) Range: 6.0-8.5 Calcium, Serum 9.6 mg/dL (Normal) Range: 8.7-10.2 Carbon Dioxide, Total 23 mmol/L (Normal) Range: 19-28 Chloride, Serum 101 mmol/L (Normal) Range: 97-108 Potassium, Serum 3.6 mmol/L (Normal) Range: 3.5-5.2 Sodium, Serum 139 mmol/L (Normal) Range: 134-144 BUN/Creatinine Ratio 16 (Normal) Range: 9-23 eGFR If Africn Am 89 mL/min/1.73 (Normal) eGFR If NonAfricn Am 77 mL/min/1.73 (Normal) BUN 14 mg/dL (Normal) Range: 6-24 Creatinine, Serum 0.86 mg/dL (Normal) Range: 0.57-1.00 Glucose, Serum 136 mg/dL (Abnormal) Range: 65-99 5-Ajx-[id number]:34 LIPID PANEL (59565) Comments: PATIENT NOT FASTINGPERFORMED BY: [facility]castB[facility] for RehabilitationNwmbat6979 [facility] [id number] LDL/HDL Ratio 2.5 {ratio_units} (Normal) Range: 0.0-3.2 HDL Cholesterol 44 mg/dL (Normal) Comments: According to ATP-III Guidelines, HDL-C >59 mg/dL is considered anegative risk factor for CHD. LDL Cholesterol Calc 108 mg/dL (Abnormal) Range: 0-99 VLDL Cholesterol Daniel 51 mg/dL (Abnormal) Range: 5-40 Triglycerides 254 mg/dL (Abnormal) Range: 0-149 Cholesterol, Total 203 mg/dL (Abnormal) Range: 100-199 :34 CBC WITH MANUAL DIFF Comments: PATIENT NOT FASTINGPERFORMED BY: [facility] for RehabilitationNssqpf9500 [facility] [id number] Information: [id number] ([id number]) Immature Grans (Abs) 0.0 {x10E3/uL} (Normal) Range: 0.0-0.1 Immature Granulocytes 0 % (Normal) Range: 0-2 Baso (Absolute) 0.1 {x10E3/uL} (Normal) Range: 0.0-0.2 Eos (Absolute) 0.2 {x10E3/uL} (Normal) Range: 0.0-0.4 Monocytes(Absolute) 0.5 {x10E3/uL} (Normal) Range: 0.1-0.9 Lymphs (Absolute) 3.9 {x10E3/uL} (Abnormal) Range: 0.7-3.1 Neutrophils (Absolute) 2.8 {x10E3/uL} (Normal) Range: 1.4-7.0 Basos 1 % (Normal) Range: 0-3 Eos 2 % (Normal) Range: 0-5 Monocytes 7 % (Normal) Range: 4-12 Lymphs 52 % (Abnormal) Range: 14-46 Neutrophils 38 % (Abnormal) Range: 40-74 Platelets 258 {x10E3/uL} (Normal) Range: 155-379 RDW 13.1 % (Normal) Range: 12.3-15.4 MCHC 32.5 g/dL (Normal) Range: 31.5-35.7 MCH 31.1 pg (Normal) Range: 26.6-33.0 MCV 96 fL (Normal) Range: 79-97 Hematocrit 39.7 % (Normal) Range: 34.0-46.6 Hemoglobin 12.9 g/dL (Normal) Range: 11.1-15.9 RBC 4.15 {x10E6/uL} (Normal) Range: 3.77-5.28 WBC 7.5 {x10E3/uL} (Normal) Range: 3.4-10.8 :28 HgA1C , Office (08525) HgA1C , Office 7.1 % (Normal) Range: 4.6 - 7.1 :28 Blood Glucose , Office (45535) Blood Glucose , Office 144 (Normal) 10-Vob-[id number]:05 HPV automatic Comments: Source.............Cervical;EndocervicalNo. of containers..01 CYTYC Thin Prep VialPATIENT NOT FASTINGPERFORMED BY: WB [facility] Arvnmwgzyh262 [facility] [id number] BY: =G L (51356) [facility] Kckjlcljlv250 [facility] [id number] Information: [id number] HPV, high-risk Negative Comments: This high-risk HPV test detects thirteen high- risk types(16/18/31/33/35/39/45/51/52/56/58/59/68) without differentiation. . (Normal) Note: PAPSMR (Normal) Comments: The Pap smear is a screening test designed to aid in the detection ofpremalignant and malignant conditions of the uterine cervix. It is not adiagnostic procedure and should not be used as the sole mean s of detectingcervical cancer. Both false-positive and false-negative reports do occur. .This liquid based ThinPrep(R) pap test w as screened with theuse of an image guided system. See Note . (Normal) DIAGNOSIS: SPRCS (Normal) Comments: NEGATIVE FOR INTRAEPITHELIAL LESION AND MALIGNANCY.CELLULAR CHANGES ASSOCIATED WITH ATROPHY ARE PRESENT.Satisfactory for evaluation. Endocervical component may not bedistinguished in cases of atrophy.V 72.31 ; Routine gynecological examinationSnathanael Chan Chemist (ASCP) :55 CBCD ANC 4.2 3/uL (Normal) Range: 2.0-7.7 IG# 0.010 3/ul (Abnormal) Range: 0.0-0.0 IG% 0.10 % (Abnormal) Range: 0.0-0.0 B% 0.4 % (Normal) Range: 0-1 E% 1.6 % (Normal) Range: 0-5 M% 11.3 % (Abnormal) Range: 0-10 L% 36.3 % (Normal) Range: 19-41 N% 50.3 % (Normal) Range: 47-70 MPV 10.1 fL (Normal) Range: 6.2-12.0 PLT 308 K/mm3 (Normal) Range: 150-450 RDWCV 12.1 % (Normal) Range: 11.6-14.6 RDWSD 39.1 fL (Normal) Range: 35.1-43.9 MCHC 32.7 g/dL (Normal) Range: 32-36 MCH 29.7 pg (Normal) Range: 27.0-32.0 MCV 90.8 fL (Normal) Range: 81-99 HCT 37.6 % (Normal) Range: 37-47 HGB 12.3 g/dL (Normal) Range: 12.0-15.0 RBC 4.14 {M/mm3} (Abnormal) Range: 4.2-5.4 WBC 8.3 {k/mm3} (Normal) Range: 4.4-11.0 :55 CBCMD ANC 4.2 3/uL (Normal) Range: 2.0-7.7 IG# 0.010 3/ul (Abnormal) Range: 0.0-0.0 B% 0.4 % (Normal) Range: 0-1 IG% 0.10 % (Abnormal) Range: 0.0-0.0 E% 1.6 % (Normal) Range: 0-5 M% 11.3 % (Abnormal) Range: 0-10 L% 36.3 % (Normal) Range: 19-41 N% 50.3 % (Normal) Range: 47-70 MPV 10.1 fL (Normal) Range: 6.2-12.0 PLT 308 K/mm3 (Normal) Range: 150-450 RDWCV 12.1 % (Normal) Range: 11.6-14.6 RDWSD 39.1 fL (Normal) Range: 35.1-43.9 MCH 29.7 pg (Normal) Range: 27.0-32.0 MCHC 32.7 g/dL (Normal) Range: 32-36 MCV 90.8 fL (Normal) Range: 81-99 HCT 37.6 % (Normal) Range: 37-47 HGB 12.3 g/dL (Normal) Range: 12.0-15.0 RBC 4.14 {M/mm3} (Abnormal) Range: 4.2-5.4 WBC 8.3 {k/mm3} (Normal) Range: 4.4-11.0 :55 CMP GAP 10 (Normal) Range: 5-15 CO2 29.0 mmol/L (Normal) Range: 21.0-32.0 CL 101 mmol/L (Normal) Range: 98-107 K 3.5 mmol/L (Normal) Range: 3.5-5.1 NA 140 mmol/L (Normal) Range: 136-145 BIT 0.50 mg/dL (Normal) Range: 0.00-1.00 ALT 43 U/L (Normal) Range: 12-78 ALK 64 U/L (Normal) Range: 50-136 AST 32 U/L (Normal) Range: 15-37 CA 9.7 mg/dL (Normal) Range: 8.5-10.1 AG 0.9 {RATIO} (Normal) Range: 0.9-2.4 GLOB 3.9 g/dL (Normal) Range: 2.7-4.2 ALB 3.5 g/dL (Normal) Range: 3.4-5.0 TPROT 7.4 g/dL (Normal) Range: 6.4-8.2 BC 10.0 {RATIO} (Normal) Range: 10-20 GFRAA 85 mL/min (Normal) GFR 70 mL/min (Normal) CREAT 0.9 mg/dL (Normal) Range: 0.6-1.0 BUN 9 mg/dL (Normal) Range: 7-18 GLU 106 mg/dL (Normal) Range: 70-110 :55 SED tSEDRATE 28 mm/h (Normal) Range: 0-30 85-Vns-935178:24 Rapid Flu (96411 x 2) Influenza A Ag negative (Normal) :57 HEPATOBILLIARY IMG W/PHARM INT Radiology Report See Note (Normal) Comments: CLINICAL:51-year-old female with history of right upper quadrant pain and nausea. RADIONUCLIDE HEPATOBILIARY SCINTIGRAPHY COMPARISON:Abdominal ultrasound report 06/18/12 FINDINGS:Following the intraveno us administration of 5.3 mCi of Tc Mebrofenin,hepatobiliary images reveal: 1. Relatively prompt and homogeneous radiopharmaceutical concentrationisnoted by a normal sized liver. No parenchymal defects are identified.2. Gallbladder activity is identified at 15 minutes postradiopharmaceutical administration.3. Small intestinal tract is not visualized during 60 minutes of pre-CCKsequential imaging. S mall bowel activity is identified following theadministration of cholecystokinin.4. Washout of the radiopharmaceutical by the hepatic parenchyma occursina normal fashion on qualitative inspection. Chol ecystokinin (0.02 ug/kg) was administered intravenously over n64-roqjdw period. The post CCK gallbladder ejection fraction [id number] minutes following Cholecystokinin administration was noted to b e 11.0%(normal greater than 35%). IMPRESSION:1. ABNORMAL 99m Tc Mebrofenin hepatobiliary imaging survey withCholecystokinin. A. A gallbladder ejection fraction calculated to be less than 35%following the administration of Cholecystokinin is consistent with thepresence of functional hepatobiliary disease (gallbladder and/orsphincterof Oddi dyskinesia) and/or organic hepatobiliary disease (chronicacal culous cholecystitis and/or cystic duct syndrome) in patients withintermediate to high pretest likelihoods of hepatobiliary illness. (Norberto, Journal of Nuclear Medicine 32:1695, 1991). Sig ryley:Gage Gandhi M.D.June 24, 2012 at 9:54:02 PM [id number] Signed RB/RB If you are the referring physician and would like to consult with theradiologist who provided this inter pretation, please contact Vincent Frost at [phone]. If this radiologist is unavailable, you will bedirected to another radiologist to assist. If you are a patient with a question regarding this report, pleasecontactyour referring physician directly. Professional Interpretation Provided By: [place] [facility], Phone , These documents contain legally protected and confide ntial healthinformation intended only for the use of the individual or entity namedabove. If you are not the intended recipient, you are hereby notifiedthatany disclosure, copying, distribution, or othe r use of these documents isstrictly prohibited. If you have received this information in error,pleasenotify the sender immediately and arrange for the return or destructionofthese documents. Dictated on 06/24/12 0824 by Gage Gandhi DOTranscribed on 06/24/122203 by ITS IMPORTSign by Gage Gandhi DO on 06/24/122204 Sign by: Gage Gandhi DO :09 HgA1C , Office (19624) HgA1C , Office 6.6 % (Normal) Range: 4.6 - 7.1 :09 Blood Glucose , Office (55678) Blood Glucose , Office 141 (Normal) 99-Npx-037801:29 Blood Glucose , Office (02832) Blood Glucose , Office 113 (Normal) 90-Xmp-209781:29 HgA1C , Office (28431) HgA1C , Office 6.8 % (Normal) Range: 4.6 - 7.1 :44 LIPID PANEL (06565) Comments: PATIENT WAS FASTINGPERFORMED BY: [facility] Kvwyph4361 [facility] [id number] Information: [id number] LDL/HDL Ratio 2.2 {ratio_units} (Normal) Range: 0.0-3.2 LDL Cholesterol Calc 101 mg/dL (Abnormal) Range: 0-99 VLDL Cholesterol Daniel 40 mg/dL (Normal) Range: 5-40 HDL Cholesterol 46 mg/dL (Normal) Comments: According to ATP-III Guidelines, HDL-C >59 mg/dL is considered anegative risk factor for CHD. Triglycerides 198 mg/dL (Abnormal) Range: 0-149 Cholesterol, Total 187 mg/dL (Normal) Range: 100-199 :47 HgA1C , Office (88643) HgA1C , Office 6.3 % (Normal) Range: 4.6 - 7.1 :47 Blood Glucose , Office (24866) Blood Glucose , Office 183 (Normal) :15 CBCD,SMEAR DIFF RED CELL MORPH SeeNote {NORMAL} (Normal) Comments: Result: NORM C+C PLT EST SeeNote (Normal) Comments: Result: ADEQUATE EOS 3 % (Normal) Range: 0-5 MONOCYTE 6 % (Normal) Range: 0-10 LYMPH 57 % (Abnormal) Range: 19-41 BAND 2 % (Normal) Range: 0-5 SEGS 32 % (Abnormal) Range: 47-70 CELLS COUNTED 100 (Normal) ABSOLUTE NEUT 2.3 3/uL (Normal) Range: 2.0-7.7 PLT 242 K/mm3 (Normal) Range: 150-450 RDW 12.1 % (Normal) Range: 11.6-14.6 MCHC 34.2 g/dL (Normal) Range: 32-36 MCH 31.2 pg (Normal) Range: 27.0-32.0 MCV 91.1 fL (Normal) Range: 81-99 HCT 38.5 % (Normal) Range: 37-47 HGB 13.2 g/dL (Normal) Range: 12.0-16.0 RBC 4.23 {M/mm3} (Normal) Range: 4.2-5.4 WBC 5.7 K/mm3 (Normal) Range: 4.4-11.0 :15 COMP METABOLIC GAP 6 (Normal) Range: 5-15 CO2 32.0 mmol/L (Normal) Range: 21.0-32.0 CL 101 mmol/L (Normal) Range: 98-107 K 3.6 mmol/L (Normal) Range: 3.5-5.1 NA 139 mmol/L (Normal) Range: 136-145 T BILI 0.50 mg/dL (Normal) Range: 0.00-1.00 ALT 88 U/L (Abnormal) Range: 12-78 ALK P 70 U/L (Normal) Range: 50-136 AST 59 U/L (Abnormal) Range: 15-37 CA 8.9 mg/dL (Normal) Range: 8.5-10.1 A/G 0.9 {RATIO} (Normal) Range: 0.9-2.4 GLOB 4.3 g/dL (Abnormal) Range: 2.7-4.2 ALB 3.7 g/dL (Normal) Range: 3.4-5.0 T PROT 8.0 g/dL (Normal) Range: 6.4-8.2 BUN/CRE 17.0 {RATIO} (Normal) Range: 10-20 EST GFR - AA 75 mL/min (Normal) EST GFR 62 mL/min (Normal) CREAT,SERUM 1.0 mg/dL (Normal) Range: 0.6-1.0 BUN 17 mg/dL (Normal) Range: 7-18 GLU 111 mg/dL (Abnormal) Range: 70-110 Comments: Fasting Glucose result from 110 to <126 mg/dL suggests IMPAIRED HOMEOSTASIS per A.D.A. criteria. 81-Ipn-48519:15 COMPLETE UA Comments: appt 08/08/11 MUCUS, URINE 0 SEEN {/hpf} (Normal) BACTERIA RARE {/hpf} (Normal) SQUAM EPI SeeNote {/hpf} (Normal) Range: 5-10 Comments: Result: 0-5 SEEN WBC SeeNote {/hpf} (Normal) Range: 0-5 Comments: Result: 10-25 SEEN LEUK ESTERASE 1+ (Abnormal) OCCULT BLOOD-UR SeeNote (Normal) Comments: Result: NEGATIVE NITRITE UR SeeNote (Normal) Comments: Result: NEGATIVE UROBILI 0.2 EU/dl (Normal) Range: 0.2 - 1.0 PROT DIPSTX SeeNote (Normal) Comments: Result: NEGATIVE pH UR 5.5 (Normal) Range: 5.0-8.0 SP.GR. DIPSTX 1.025 (Normal) Range: 1.002-1.030 KETONE UR SeeNote mg/dL (Normal) Comments: Result: NEGATIVE BILIRUBIN URINE SeeNote (Normal) Comments: Result: NEGATIVE GLUCOSE, UR SeeNote (Normal) Comments: Result: NEGATIVE CLARITY CLOUDY (Normal) COLOR YELLOW (Normal) :15 LIPID VLDL 24 mg/dL (Normal) Range: 5-40 LDL 135 mg/dL (Abnormal) Range: 0-130 HDL 41 mg/dL (Normal) Comments: Reference Range HDL <40 mg/dL Low HDL Cholesterol HDL >or= 60 mg/dL High HDL Cholesterol TRIG 118 mg/dL (Normal) Comments: Serum Triglycerides Reference Interval Normal <150 mg/dL Borderline high 150 - 199 mg/dL High 200 - 499 mg/dL Very High > or = 500 mg/dL CHOL 200 mg/dL (Normal) Comments: <200 mg/dL Desirable 200-240 mg/dL Borderline >240 mg/dL High Risk :15 MICROALB:CRE UR MALB:CREAT 15.8 {mg/g_CRE} (Normal) MICROALBUMIN,UR 30.9 mg/L (Normal) UR CREAT 195.1 mg/dL (Normal) :15 TSH 1.85 {uIU/mL} (Normal) Range: 0.358-3.74 :36 HgA1C , Office (48778) HgA1C , Office 5.9 % (Normal) Range: 4.6 - 7.1 :36 Blood Glucose , Office (26433) Blood Glucose , Office 127 (Normal) :00 LISANDRO CULTURE-OTHER (27771) Comments: PATIENT NOT FASTINGPERFORMED BY: [facility] RehabilitationNyknjj4050 [facility] [id number] Result 1 RRF (Normal) Comments: Routine respiratory thai Upper Respiratory Culture Final report (Normal) :14 Blood Glucose , Office (80952) Blood Glucose , Office 119 (Normal) :14 HgA1C , Office (30041) HgA1C , Office 6.1 % (Normal) Range: 4.6 - 7.1 :37 CBCD ABSOLUTE NEUT 2.7 3/uL (Normal) Range: 2.0-7.7 BASO% 0.5 % (Normal) Range: 0-1 EO% 1.9 % (Normal) Range: 0-5 LY% 44.1 % (Abnormal) Range: 19-41 MONO% 7.5 % (Normal) Range: 0-10 MPV 7.8 fL (Normal) Range: 6.5-12.0 NEUT% 46.0 % (Abnormal) Range: 47-70 PLT 288 K/mm3 (Normal) Range: 150-450 HCT 36.8 % (Abnormal) Range: 37-47 HGB 12.7 g/dL (Normal) Range: 12.0-16.0 MCH 32.0 pg (Normal) Range: 27.0-32.0 MCHC 34.7 g/dL (Normal) Range: 32-36 MCV 92.5 fL (Normal) Range: 81-99 RBC 3.97 {M/mm3} (Abnormal) Range: 4.2-5.4 RDW 14.2 % (Normal) Range: 11.6-14.6 WBC 5.8 K/mm3 (Normal) Range: 4.4-11.0 21-Ehn-390236:37 COMP METABOLIC A/G 0.9 {RATIO} (Normal) Range: 0.9-2.4 ALK P 79 U/L (Normal) Range: 50-136 ALT 63 U/L (Normal) Range: 12-78 AST 37 U/L (Normal) Range: 15-37 CA 9.1 mg/dL (Normal) Range: 8.5-10.1 CL 105 mmol/L (Normal) Range: 98-107 CO2 28.0 mmol/L (Normal) Range: 21.0-32.0 GAP 7 (Normal) Range: 5-15 K 3.9 mmol/L (Normal) Range: 3.5-5.1 NA 140 mmol/L (Normal) Range: 136-145 T BILI 0.50 mg/dL (Normal) Range: 0.00-1.00 ALB 3.6 g/dL (Normal) Range: 3.4-5.0 BUN 13 mg/dL (Normal) Range: 7-18 BUN/CRE 13.0 {RATIO} (Normal) Range: 10-20 CREAT,SERUM 1.0 mg/dL (Normal) Range: 0.6-1.0 EST GFR 62 mL/min (Normal) EST GFR - AA 75 mL/min (Normal) GLOB 4.1 g/dL (Normal) Range: 2.7-4.2 GLU 124 mg/dL (Abnormal) Range: 70-110 Comments: Fasting Glucose result from 110 to <126 mg/dLsuggests IMPAIRED HOMEOSTASIS per A.D.A. criteria. T PROT 7.7 g/dL (Normal) Range: 6.4-8.2 : ANEX PANEL ANTI-COTTER AB 5 AU/mL (Normal) DIGITIZER OPERATOR AB 29 AU/mL (Normal) : ANTI JO1 ANTI KERRI 37 AU/mL (Normal) : ANTI SCL 70 ANTI-SCL 70 104 AU/mL (Abnormal) : ANTI-dsDNA AB 4 {IU/mL} (Normal) : CBCD ABSOLUTE NEUT 2.9 3/uL (Normal) Range: 2.0-7.7 BASO% 0.6 % (Normal) Range: 0-1 EO% 1.8 % (Normal) Range: 0-5 LY% 44.2 % (Abnormal) Range: 19-41 MCH 31.0 pg (Normal) Range: 27.0-32.0 MCHC 34.0 g/dL (Normal) Range: 32-36 MONO% 7.8 % (Normal) Range: 0-10 MPV 7.3 fL (Normal) Range: 6.5-12.0 NEUT% 45.6 % (Abnormal) Range: 47-70 PLT 270 K/mm3 (Normal) Range: 150-450 RDW 14.2 % (Normal) Range: 11.6-14.6 HCT 35.4 % (Abnormal) Range: 37-47 HGB 12.1 g/dL (Normal) Range: 12.0-16.0 MCV 91.0 fL (Normal) Range: 81-99 RBC 3.89 {M/mm3} (Abnormal) Range: 4.2-5.4 WBC 6.3 K/mm3 (Normal) Range: 4.4-11.0 : CENTROMERE B 5 AU/mL (Normal) : COMP C3 6452 179 (Normal) Range: 90-180 Comments: INFCE Result Units: mg/dL AdultPerformed at: - [facility] [address] [id number] Director: Leatha Mark MD, Phone: [phone] COMP C4 1834 32 (Normal) Range: 9-36 Comments: INFCE Result Units: mg/dL Adult :00 COMP METABOLIC ALK P 74 U/L (Normal) Range: 50-136 ALT 50 U/L (Normal) Range: 12-78 CL 105 mmol/L (Normal) Range: 98-107 CO2 24.0 mmol/L (Normal) Range: 21.0-32.0 GAP 9 (Normal) Range: 5-15 K 3.8 mmol/L (Normal) Range: 3.5-5.1 NA 138 mmol/L (Normal) Range: 136-145 T BILI 0.30 mg/dL (Normal) Range: 0.00-1.00 A/G 0.9 {RATIO} (Normal) Range: 0.9-2.4 ALB 3.5 g/dL (Normal) Range: 3.4-5.0 AST 42 U/L (Abnormal) Range: 15-37 BUN 13 mg/dL (Normal) Range: 7-18 BUN/CRE 16.3 {RATIO} (Normal) Range: 10-20 CA 9.1 mg/dL (Normal) Range: 8.5-10.1 CREAT,SERUM 0.8 mg/dL (Normal) Range: 0.6-1.0 EST GFR 81 mL/min (Normal) EST GFR - AA 98 mL/min (Normal) GLOB 4.0 g/dL (Normal) Range: 2.7-4.2 GLU 128 mg/dL (Abnormal) Range: 70-110 Comments: Fasting Glucose result greater than or equal to 126 mg/dLsuggests DIABETES MELLITUS per A.D.A. criteria. T PROT 7.5 g/dL (Normal) Range: 6.4-8.2 :00 COMPLETE UA BACTERIA 0 SEEN {/hpf} (Normal) MUCUS, URINE 0 SEEN {/hpf} (Normal) RBC-UA 0 SEEN {/hpf} (Normal) Range: 0-5 SQUAM EPI SeeNote {/hpf} (Normal) Range: 5-10 Comments: Result: 0-5 SEEN WBC SeeNote {/hpf} (Normal) Range: 0-5 Comments: Result: 5-10 SEEN KETONE UR SeeNote mg/dL (Normal) Comments: Result: NEGATIVE LEUK ESTERASE TRACE (Abnormal) NITRITE UR SeeNote (Normal) Comments: Result: NEGATIVE OCCULT BLOOD-UR SeeNote (Normal) Comments: Result: NEGATIVE pH UR 5.0 (Normal) Range: 5.0-8.0 PROT DIPSTX SeeNote (Normal) Comments: Result: NEGATIVE SP.GR. DIPSTX >=1.030 (Normal) Range: 1.002-1.030 UROBILI 0.2 EU/dl (Normal) Range: 0.2 - 1.0 BILIRUBIN URINE SeeNote (Normal) Comments: Result: NEGATIVE CLARITY SeeNote (Normal) Comments: Result: SL CLOUDY COLOR YELLOW (Normal) GLUCOSE, UR SeeNote (Normal) Comments: Result: NEGATIVE :00 PROT+CRE RATIO PROT:CRE RATIO 68 {mg/g_CRE} (Normal) Range: 0-200 PROTEIN,UR.RAN. 11.4 mg/dL (Normal) UR CREAT 166.0 mg/dL (Normal) :00 SJOGREN'S SSA 23 AU/mL (Normal) :00 SJOGRENS SSB SJOGREN'S SSB 11 AU/mL (Normal) :00 VIT D,25 60484 32.4 ng/mL (Normal) Range: 32.0-100.0 Comments: Recent studies consider the lower limit of 32.0 ng/mL to ree threshold for optimal health.Zbigniew CAMACHO. J Nutr. 2004;135(2):317-22. 62-Qtk-933706:51 DEXA BONE DENSITY STUDY (HP) Radiology Report See Note (Normal) Comments: Exam Number: [id number] CLINICAL:The patient is a 49-year-old female who is postmenopausal.Menopause at 42 years old. No hormone replacement therapy. EXAMINATION:DUAL ENERGY X-RAY ABSORPTIOM ETRY / DEXA. TECHNIQUE:Bone Density Measurements (BMD) of lumbar spine and bilateral hipswere obtained using a [employer] scanner.. COMPARISON:July 09, 2004 FINDINGS: Lumbar Spine (L1-L4): g/cm2 (1.267 ) / T-score (0.7) /Z-score (0.3)Left Femur Total: g/cm2 (0.921) / T-score (-0.8) / Z-score(-0.6)Right Femur Total: g/cm2 (0.896 ) / T- score (minus one . ) /Z-score (-0.8)Digital lateral view for evaluation vertebral bodies onlydemonstrates no fractures. Change in bone mineral density compared to the previous examinationis as follows Lumbar Spine (L1-L4): Increased to 2.6 %.Left Femur Total: Decreased 10.1 %.Right Femur Total: Not Available %. IMPRESSION:The patient is considered normal, as outlined above, according toWorld Health Organization (WHO) criteria. Fracture risk is low. Reference Information:The T-score is the number of standard deviations above or below thestandard which is normal for young adults at their peak bone mineraldensit y. The World Health Organization (WHO) interprets the T-scoresas follows: Above -1 Normal bone densityBetween -1 and -2.5 OsteopeniaEqual to / or below -2.5 Osteoporosis As a practical clinical guideline, osteopenia may be graded asfollows:Mild -1 through -1.5Moderate -1.6 through -2.0Severe -2.1 through -2.4 The Z-score is the number of standard ely ations above or belowage-matched controls. A Z-score of less than -1.5 would beconsidered abnormal. References:1. NIH Osteoporosis and Related Bone Diseases http://www.osteo.org2. International Societ y for Clinical Densitometryhttp://www.iscd.org3. National Osteoporosis Foundation http://www.nof.org Reported By: BASHIR CARLSON M.D. 34-Mvn-46589:44 Protein Electro, Random Urine Comments: PERFORMED BY: [facility]6370 [facility] [id number] M-Sukhwinder, % Not Observed % (Normal) Please note: SPRCS (Normal) Comments: Protein electrophoresis scan will follow via computer, mail, orcourier delivery. Yvgsn-2-Wopyhjvx, U 15.7 % (Normal) Beta Globulin, U 17.7 % (Normal) Gamma Globulin, U 16.9 % (Normal) Albumin, U 47.5 % (Normal) Ahzba-3-Eynqsbsi, U 2.2 % (Normal) Protein,Total,Urine 23.0 mg/dL (Abnormal) Range: 0.0-15.0 :44 Protein Electro.,S Comments: PERFORMED BY: [facility] Mlflrl1981 [facility] [id number] Please note: SPRCS (Normal) Comments: Protein electrophoresis scan will follow via computer, mail, orcourier delivery. A/G Ratio 1.1 (Normal) Range: 0.7-2.0 Sokxu-4-Jsowttih 0.9 g/dL (Normal) Range: 0.4-1.2 Beta Globulin 1.2 g/dL (Normal) Range: 0.6-1.3 Gamma Globulin 1.2 g/dL (Normal) Range: 0.5-1.6 Globulin, Total 3.6 g/dL (Normal) Range: 2.0-4.5 M-Sukhwinder Not Observed g/dL (Normal) Albumin 3.9 g/dL (Normal) Range: 3.2-5.6 Gxnvf-6-Lytfsjlg 0.2 g/dL (Normal) Range: 0.1-0.4 Protein, Total, Serum 7.5 g/dL (Normal) Range: 6.0-8.5 :34 MECCA-D [id number] MECCA-DIRECT SeeNote (Abnormal) Comments: Result: Positive :34 ANTI-CCP [id number] 5 {units} (Normal) Range: 0-19 Comments: Negative <20Weak positive 20 - 39Moderate positive 40 - 59Strong positive >59 :34 C-REACTIVE PROT 12.40 mg/L (Abnormal) Range: 0.0-3.0 Comments: C-Reactive Protein (CRP) provides useful information for thediagnosis, therapy and monitoring of inflammatory processesand associated diseases. For the evaluation of Relative Riskfor Cardiovascular Dise ase, a High Sensitivity CRP (HSCRP)should be ordered. :34 CBCD ABSOLUTE NEUT 3.4 3/uL (Normal) Range: 2.0-7.7 BASO% 0.4 % (Normal) Range: 0-1 EO% 2.1 % (Normal) Range: 0-5 LY% 39.0 % (Normal) Range: 19-41 MONO% 7.7 % (Normal) Range: 0-10 MPV 7.1 fL (Normal) Range: 6.5-12.0 NEUT% 50.8 % (Normal) Range: 47-70 PLT 295 K/mm3 (Normal) Range: 150-450 RDW 13.3 % (Normal) Range: 11.6-14.6 HCT 38.6 % (Normal) Range: 37-47 HGB 13.1 g/dL (Normal) Range: 12.0-16.0 MCH 30.4 pg (Normal) Range: 27.0-32.0 MCHC 34.0 g/dL (Normal) Range: 32-36 MCV 89.4 fL (Normal) Range: 81-99 RBC 4.31 {M/mm3} (Normal) Range: 4.2-5.4 WBC 6.6 K/mm3 (Normal) Range: 4.4-11.0 :34 COMP METABOLIC CO2 27.0 mmol/L (Normal) Range: 21.0-32.0 GAP 14 (Normal) Range: 5-15 CL 101 mmol/L (Normal) Range: 98-107 K 3.9 mmol/L (Normal) Range: 3.5-5.1 NA 142 mmol/L (Normal) Range: 136-145 T BILI 0.50 mg/dL (Normal) Range: 0.00-1.00 A/G 0.8 {RATIO} (Abnormal) Range: 0.9-2.4 ALB 3.6 g/dL (Normal) Range: 3.4-5.0 ALK P 82 U/L (Normal) Range: 50-136 ALT 41 U/L (Normal) Range: 12-78 AST 19 U/L (Normal) Range: 15-37 BUN/CRE 13.3 {RATIO} (Normal) Range: 10-20 CA 9.0 mg/dL (Normal) Range: 8.5-10.1 CREAT,SERUM 0.9 mg/dL (Normal) Range: 0.6-1.0 EST GFR 70 mL/min (Normal) EST GFR - AA 85 mL/min (Normal) GLOB 4.8 g/dL (Abnormal) Range: 2.7-4.2 T PROT 8.4 g/dL (Abnormal) Range: 6.4-8.2 BUN 12 mg/dL (Normal) Range: 7-18 GLU 93 mg/dL (Normal) Range: 70-110 :34 COMPLETE UA BACTERIA RARE {/hpf} (Normal) MUCUS, URINE 0 SEEN {/hpf} (Normal) RBC-UA 0 SEEN {/hpf} (Normal) Range: 0-5 RENAL EPI SeeNote {/hpf} (Normal) Range: 0-5 Comments: Result: 0-5 SEEN SQUAM EPI SeeNote {/hpf} (Normal) Range: 5-10 Comments: Result: 0-5 SEEN WBC SeeNote {/hpf} (Normal) Range: 0-5 Comments: Result: 5-10 SEEN LEUK ESTERASE TRACE (Abnormal) NITRITE UR SeeNote (Normal) Comments: Result: NEGATIVE OCCULT BLOOD-UR SeeNote (Normal) Comments: Result: NEGATIVE PROT DIPSTX SeeNote (Normal) Comments: Result: NEGATIVE UROBILI 0.2 EU/dl (Normal) Range: 0.2 - 1.0 BILIRUBIN URINE SeeNote (Normal) Comments: Result: NEGATIVE KETONE UR SeeNote mg/dL (Normal) Comments: Result: NEGATIVE pH UR 5.5 (Normal) Range: 5.0-8.0 SP.GR. DIPSTX >=1.030 (Normal) Range: 1.002-1.030 CLARITY CLEAR (Normal) GLUCOSE, UR SeeNote (Normal) Comments: Result: NEGATIVE COLOR STRAW (Normal) :34 ESR SED RATE 25 mm/h (Normal) Range: 0-30 :34 HB CORE [id number] SeeNote (Normal) Comments: Result: NegativePerformed at: - [facility] [address] [id number] Director: Leatha Mark MDPerformed at: - [facility] [address] [id number] Director: Al White MD :34 HBsAg 6510 HB SURF AG 6510 SeeNote (Normal) Comments: Result: Negative :34 HEBSAB 6395 > 100 (Abnormal) Range: 0.00-0.99 Comments: Status of Immunity Anti-HBs Level Inconsistent with Immunity 0.00 - 0.99Consistent with Immunity >0.99.An Index Value of 1.00 is equivalent to 10 mIU/mL.However the magnitude of the Index Value is notindicative of the total amount of antibody present. :34 HEP C AB 705620 <0.1 (Normal) Range: 0.0-0.9 Comments: Negative: < 0.8Indeterminate 0.8 - 0.9Positive: > 0.9.In order to reduce the incidence of a false positiveresult, the CDC recommends that all s/co ratiosbetween 1.0 and 10.9 be confirmed with additionalRIBA or PCR testing. :34 RHEUMATOID FAC < 10.0 {IU/mL} (Normal) :34 VIT D,25 86317 21.3 ng/mL (Abnormal) Range: 32.0-100.0 Comments: Recent studies consider the lower limit of 32.0 ng/mL to ree threshold for optimal health.Zbigniew CAMACHO. J Nutr. 2004;135(2):317-22. :31 Anti-dsDNA Antibodies Comments: PATIENT WAS FASTINGPERFORMED BY: [employer] Dppvay0894 [facility] [id number] Information: [id number] Anti-DNA (DS) Ab Qn <1 {IU/mL} (Normal) Range: 0-9 Comments: Negative <5Equivocal 5 - 9Positive >9 : Written Authorization WAR (Normal) Comments: PATIENT WAS FASTINGPERFORMED BY: [email or web address] Kwlqct5650 [facility] [id number] 31 Comments: Written Authorization Received.Authorization received from DR CHANEL VARMA [id number] by Selma Ba 67-Qhb-535607:24 KNEE,4 OR MORE VIEWS ([place]) Radiology Report See Note (Normal) Comments: Exam Number: [id number] LEFT KNEE HISTORYPain. Four views of the left knee were obtained. AP and lateral views wereobtained weightbearing. There is no significant joint space narrowingident ified. Ther e is sclerosis of the tibial plateau medially. Thereare small osteophytes present. There is calcification in theattachment of the quadriceps tendon. No fracture or dislocation isidentified. IMPRESSIO NMild degenerative change. Reported By: BASHIR CARLSON M.D. :31 HEPATIC FUNCTION PANEL (39714) Comments: PATIENT WAS FASTINGPERFORMED BY: [employer] Pddfmx6618 [facility] [id number] Bilirubin, Direct 0.14 mg/dL (Normal) Range: 0.00-0.40 : SED RATE ERYTHROCYTE (95109) Comments: PATIENT WAS FASTINGPERFORMED BY: [employer] [id number] [employer] [facility] SemiconductorFormerly [facility] [id number] Sedimentation Rate-Westergren 15 mm/h (Normal) Range: 0-30 : C-REACTIVE PROTEIN (96704) Comments: PATIENT WAS FASTINGPERFORMED BY: [employer] [id number] [facility] [id number] C-Reactive Protein, Quant 11.2 mg/L (Abnormal) Range: 0.0-4.9 : TSH (00102) Comments: PATIENT WAS FASTINGPERFORMED BY: [employer] Anojbr2896 [employer] [facility]Former[facility] [id number] TSH 1.970 {uIU/mL} (Normal) Range: 0.450-4.500 : RHEUMATOID FACTOR-QUANT (22639) Comments: PATIENT WAS FASTINGPERFORMED BY: [employer] Hdlfiq1695 Aleman WandrianNovant Health Ballantyne Medical Centerin [place] [id number] RA Latex Turbid. 6.8 {IU/mL} (Normal) Range: 0.0-13.9 : MECCA (ANTINUCLEAR ANTIBODY) Comments: PATIENT WAS FASTINGPERFORMED BY: [employer] Dbiaqr7492 Aleman [facility] [id number] (54476) MECCA Direct Positive (Abnormal) : CBC WITH MANUAL DIFF Comments: PATIENT WAS FASTINGPERFORMED BY: [facility]6370 [facility] [id number] Information: [id number] (44743) Baso (Absolute) 0.1 {x10E3/uL} (Normal) Range: 0.0-0.2 Eos (Absolute) 0.1 {x10E3/uL} (Normal) Range: 0.0-0.4 Lymphs (Absolute) 2.8 {x10E3/uL} (Normal) Range: 0.7-4.5 Monocytes(Absolute) 0.4 {x10E3/uL} (Normal) Range: 0.1-1.0 Neutrophils (Absolute) 3.3 {x10E3/uL} (Normal) Range: 1.8-7.8 Basos 1 % (Normal) Range: 0-3 Eos 1 % (Normal) Range: 0-7 Lymphs 42 % (Normal) Range: 14-46 Monocytes 6 % (Normal) Range: 4-13 Neutrophils 50 % (Normal) Range: 40-74 MCH 30.9 pg (Normal) Range: 27.0-34.0 MCHC 34.4 g/dL (Normal) Range: 32.0-36.0 Platelets 252 {x10E3/uL} (Normal) Range: 140-415 RDW 13.5 % (Normal) Range: 11.7-15.0 Hematocrit 38.0 % (Normal) Range: 34.0-44.0 Hemoglobin 13.0 g/dL (Normal) Range: 11.5-15.0 MCV 90 fL (Normal) Range: 80-98 RBC 4.22 {x10E6/uL} (Normal) Range: 3.80-5.10 WBC 6.6 {x10E3/uL} (Normal) Range: 4.0-10.5 :31 METABOLIC PANEL, COMPREHENSIVE Comments: PATIENT WAS FASTINGPERFORMED BY: [facility]6370 [facility] [id number] ([id number]) Alkaline Phosphatase, S 85 [iU]/L (Normal) Range: 25-150 ALT (SGPT) 25 [iU]/L (Normal) Range: 0-40 AST (SGOT) 23 [iU]/L (Normal) Range: 0-40 Bilirubin, Total 0.5 mg/dL (Normal) Range: 0.0-1.2 Comments: Please note reference interval change A/G Ratio 1.3 (Normal) Range: 1.1-2.5 Albumin, Serum 4.2 g/dL (Normal) Range: 3.5-5.5 Globulin, Total 3.2 g/dL (Normal) Range: 1.5-4.5 Protein, Total, Serum 7.4 g/dL (Normal) Range: 6.0-8.5 Calcium, Serum 9.4 mg/dL (Normal) Range: 8.7-10.2 Carbon Dioxide, Total 22 mmol/L (Normal) Range: 20-32 BUN/Creatinine Ratio 11 (Normal) Range: 8-27 Chloride, Serum 101 mmol/L (Normal) Range: 97-108 eGFR AfricanAmerican >59 mL/min/1.73 Comments: Note: Persistent reduction for 3 months or more in an eGFR<60 mL/min/1.73 m2 defines CKD. Patients with eGFR values>/=60 mL/min/1.73 m2 may also have CKD if evidence of persistentproteinuria is (Normal) present. Additional information may be found [email or web address]. Potassium, Serum 4.2 mmol/L (Normal) Range: 3.5-5.2 Sodium, Serum 144 mmol/L (Normal) Range: 135-145 BUN 10 mg/dL (Normal) Range: 5-26 Creatinine, Serum 0.92 mg/dL (Normal) Range: 0.57-1.00 eGFR >59 mL/min/1.73 (Normal) Glucose, Serum 110 mg/dL (Abnormal) Range: 65-99 :25 Blood Glucose , Office (92061) Blood Glucose , Office 90 (Normal) :25 HgA1C , Office (95007) HgA1C , Office 6.5 % (Normal) Range: 4.6 - 7.1 :40 Blood Glucose , Office (58012) Blood Glucose , Office 100 (Normal) :40 HgA1C , Office (76594) HgA1C , Office 5.7 % (Normal) Range: 4.6 - 7.1 :08 HEPATIC FUNCTION PANEL Comments: repeat Aug; PATIENT NOT FASTINGPERFORMED BY: [employer]6370 [facility]istB[facility] [id number] (02329) Alkaline Phosphatase, S 84 [iU]/L (Normal) Range: 25-150 ALT (SGPT) 35 [iU]/L (Normal) Range: 0-40 AST (SGOT) 32 [iU]/L (Normal) Range: 0-40 Albumin, Serum 4.3 g/dL (Normal) Range: 3.5-5.5 Bilirubin, Direct 0.10 mg/dL (Normal) Range: 0.00-0.40 Bilirubin, Total 0.4 mg/dL (Normal) Range: 0.1-1.2 Protein, Total, Serum 7.4 g/dL (Normal) Range: 6.0-8.5 :33 Creatinine Clearance Comments: PERFORMED BY: [employer]6370 [facility] NottinghamFormer[facility] [id number] Creatinine Clearance 119 mL/min (Normal) Range: 88-128 Comments: The above range is based on 1.73 square meter average body surfacearea. Creatinine, Serum 0.93 mg/dL (Normal) Range: 0.57-1.00 Creatinine, Ur 24hr 1596.0 {mg/24_hr} Range: 800.0-1800.0 (Normal) Creatinine, Urine 106.4 mg/dL (Normal) Range: 15.0-278.0 eGFR >59 mL/min/1.73 (Normal) eGFR AfricanAmerican >59 mL/min/1.73 (Normal) Comments: Note: Persistent reduction for 3 months or more in an eGFR<60 mL/min/1.73 m2 defines CKD. Patients with eGFR values>/=60 mL/min/1.73 m2 may also have CKD if evidence of persistentproteinuria is present. Additional information may be found [email or web address]. 01-Abd-313289:33 Hepatic Function Panel (7) Comments: Clinical Information: 04/21@630AM 04/22@630AM PERFORMED BY: [employer]6370 [employer] [facility] NottinghamFormer[facility] [id number] Albumin, Serum 4.5 g/dL (Normal) Range: 3.5-5.5 Alkaline Phosphatase, S 83 [iU]/L (Normal) Range: 25-150 ALT (SGPT) 54 [iU]/L (Abnormal) Range: 0-40 AST (SGOT) 49 [iU]/L (Abnormal) Range: 0-40 Bilirubin, Direct 0.11 mg/dL (Normal) Range: 0.00-0.40 Bilirubin, Total 0.4 mg/dL (Normal) Range: 0.1-1.2 Protein, Total, Serum 7.6 g/dL (Normal) Range: 6.0-8.5 :33 Microalbumin, 24 hr Urine Comments: PERFORMED BY: CHARLES [employer] [facility] [id number] Microalbumin, Urine 3.5 ug/mL (Normal) Range: 0.0-17.0 Microalbumin,mg/day 5.3 {mg/day} (Normal) :08 Blood Glucose , Office (84042) Blood Glucose , Office 119 (Normal) :07 HgA1C , Office (08380) HgA1C , Office 6.1 % (Normal) Range: 4.6 - 7.1 :51 HEPATIC FUNCTION PANEL Comments: PATIENT NOT FASTINGClinical Information: 75G DRAWN @ 1145AM PERFORMED BY: CHARLES [employer]70 [facility] [id number] (53658) Albumin, Serum 4.7 g/dL (Normal) Range: 3.5-5.5 Alkaline Phosphatase, S 89 [iU]/L (Normal) Range: 25-150 ALT (SGPT) 54 [iU]/L (Abnormal) Range: 0-40 AST (SGOT) 43 [iU]/L (Abnormal) Range: 0-40 Bilirubin, Direct 0.11 mg/dL (Normal) Range: 0.00-0.40 Bilirubin, Total 0.4 mg/dL (Normal) Range: 0.1-1.2 Protein, Total, Serum 7.8 g/dL (Normal) Range: 6.0-8.5 :51 Glucose, PP/2 Hour (81443) Comments: PATIENT NOT FASTINGPERFORMED BY: CHARLES Z[employer]space RoadDublin [place] [id number] Glucose, Two-Hour Postprandial 173 mg/dL (Abnormal) Range: 65-139 :25 Lipid Panel (74729) Comments: PATIENT WAS FASTINGPERFORMED BY: LabCoBacharach Institute for RehabilitationHwebcl3074 [facility] [id number] Cholesterol, Total 177 mg/dL (Normal) Range: 100-199 HDL Cholesterol 37 mg/dL (Abnormal) Comments: According to ATP-III Guidelines, HDL-C >59 mg/dL is considered anegative risk factor for CHD. LDL Cholesterol Calc 84 mg/dL (Normal) Range: 0-99 LDL/HDL Ratio 2.3 {ratio_units} (Normal) Range: 0.0-3.2 Triglycerides 280 mg/dL (Abnormal) Range: 0-149 VLDL Cholesterol Daniel 56 mg/dL (Abnormal) Range: 5-40 :25 CBC with manual diff (90001) Comments: PATIENT WAS FASTINGClinical Information: ADD [id number], [id number] PERFORMED BY: [facility]CoBacharach Institute for RehabilitationMlwasr3078 [facility] [id number] Baso (Absolute) 0.0 {x10E3/uL} (Normal) Range: 0.0-0.2 Basos 0 % (Normal) Range: 0-3 Eos 2 % (Normal) Range: 0-7 Eos (Absolute) 0.1 {x10E3/uL} (Normal) Range: 0.0-0.4 Hematocrit 39.7 % (Normal) Range: 34.0-44.0 Hemoglobin 13.4 g/dL (Normal) Range: 11.5-15.0 Lymphs 39 % (Normal) Range: 14-46 Lymphs (Absolute) 2.6 {x10E3/uL} (Normal) Range: 0.7-4.5 MCH 31.4 pg (Normal) Range: 27.0-34.0 MCHC 33.9 g/dL (Normal) Range: 32.0-36.0 MCV 93 fL (Normal) Range: 80-98 Monocytes 7 % (Normal) Range: 4-13 Monocytes(Absolute) 0.5 {x10E3/uL} (Normal) Range: 0.1-1.0 Neutrophils 52 % (Normal) Range: 40-74 Neutrophils (Absolute) 3.4 {x10E3/uL} (Normal) Range: 1.8-7.8 Platelets 267 {x10E3/uL} (Normal) Range: 140-415 RBC 4.28 {x10E6/uL} (Normal) Range: 3.80-5.10 RDW 13.8 % (Normal) Range: 11.7-15.0 WBC 6.6 {x10E3/uL} (Normal) Range: 4.0-10.5 12-Apr-20098:25 Metabolic Panel, Comprehensive Comments: PATIENT WAS FASTINGPERFORMED BY: [facility]CoBacharach Institute for RehabilitationRmmgcd0897 [facility] [id number] 45449) A/G Ratio 1.4 (Normal) Range: 1.1-2.5 Albumin, Serum 4.3 g/dL (Normal) Range: 3.5-5.5 Alkaline Phosphatase, S 85 [iU]/L (Normal) Range: 25-150 ALT (SGPT) 58 [iU]/L (Abnormal) Range: 0-40 AST (SGOT) 46 [iU]/L (Abnormal) Range: 0-40 Bilirubin, Total 0.4 mg/dL (Normal) Range: 0.1-1.2 BUN 12 mg/dL (Normal) Range: 5-26 BUN/Creatinine Ratio 15 (Normal) Range: 8-27 Calcium, Serum 9.7 mg/dL (Normal) Range: 8.5-10.6 Carbon Dioxide, Total 22 mmol/L (Normal) Range: 20-32 Chloride, Serum 105 mmol/L (Normal) Range: 97-108 Creatinine, Serum 0.79 mg/dL (Normal) Range: 0.57-1.00 eGFR >59 mL/min/1.73 (Normal) eGFR AfricanAmerican >59 mL/min/1.73 Comments: Note: Persistent reduction for 3 months or more in an eGFR<60 mL/min/1.73 m2 defines CKD. Patients with eGFR values>/=60 mL/min/1.73 m2 may also have CKD if evidence of persistentproteinuria is (Normal) present. Additional information may be found [email or web address]. Globulin, Total 3.0 g/dL (Normal) Range: 1.5-4.5 Glucose, Serum 123 mg/dL (Abnormal) Range: 65-99 Potassium, Serum 4.3 mmol/L (Normal) Range: 3.5-5.2 Protein, Total, Serum 7.3 g/dL (Normal) Range: 6.0-8.5 Sodium, Serum 143 mmol/L (Normal) Range: 135-145 12-Apr-20098:25 CALCIFEDIOL (04079) Comments: Draw aroun Apr 06 2009; PATIENT WAS FASTINGPERFORMED BY: [facility]6370 [facility] [id number] Vitamin D, 25-Hydroxy 50.3 ng/mL (Normal) Range: 32.0-100.0 Comments: Recent studies consider the lower limit of 32.0 ng/mL to be athreshold for optimal health.Zbigniew CAMACHO. J Nutr. 2004;135(2):317-22. C DIF TOXIN See Note (Normal) Comments: C. DIFF TOXINS A&B NEGATIVE :10 59-Cds-651837:10 CUL STOOL/SHIG CULTURE, STOOL See Note (Normal) Comments: No Salmonella, Shigella, Yersinia or Campylobacter isolated.No significant amount of Staphylococcus aureusor yeast-like organisms isolated. SHIGA-TOXIN See Note (Normal) Comments: SHIGA-TOXIN 1 & 2 SHIGA TOXIN 1 AND SHIGA TOXIN 2 NOT DETECTED 66-Vue-425578:10 O AND P See Note (Normal) Comments: OVA AND PARASITES EXAM, ROUTINE These results were obtained using wet preparation(s) and trichrome stained smear. This test does not include testing for Crytosporidium parvum, Cyclospora, or Microspo ridia. TESTING PERFORMED AT [facility]. ORIGINAL REPORT ON FILE IN LAB CONTAINS ADDITIONAL TEST SITE INFORMATION. OVA/ PARASITES EXAM NO OVA, CYSTS, OR PARASITES FOUND. 82-Afx-411788:10 OCCULT BLD,iFOB See Note (Normal) Comments: OCCULT BLOOD Negative 87-Ufj-224852:10 WBC,STOOL See Note (Normal) Comments: FECAL WBCs NONE SEEN 80-Bpk-182673:46 Celiac Disease Panel Comments: PERFORMED BY: [employer] Tunmiu3271 [facility] [id number] Endomysial Antibody IgA Negative (Normal) Immunoglobulin A, Qn, 160 mg/dL (Normal) Range: 70-400 Serum t-Transglutaminase (tTG) <1 U/mL (Normal) Range: 0-3 IgA Comments: Negative 0 - 3 Weak Positive 4 - 10 Positive >10 . Tissue Transglutaminase (tTG) has been identified as the endomysial antigen. Studies have demonstr- ated that endomysial IgA antibo dies have over 99% specificity for gluten sensitive enteropathy. 28-Dec-2008 Vitamin D, 25-Hydroxy 13.4 ng/mL Comments: PERFORMED BY: [facility] Jyotpd6814 [facility] [id number] 11:46 (Abnormal) Range: 32.0-100.0 Comments: Recent studies consider the lower limit of 32.0 ng/mL to be athreshold for optimal health.Zbigniew CAMACHO. J Nutr. 2004;135(2):317-22. 20-Apr-2008 C difficile Toxins A+B, Negative (Normal) Comments: PATIENT NOT FASTINGPERFORMED BY: [facility]6370 [facility] [id number] 15:30 EIA 20-Apr-2008 Occult Blood, Stool, Negative (Normal) Comments: PATIENT NOT FASTINGPERFORMED BY: [facility]6370 [facility] [id number] 15:30 Guaiac 05-Ctu-595972:30 Ova + Parasite Exam Comments: PATIENT NOT FASTINGPERFORMED BY: [place] [id number] [facility] [id number] Ova + Parasite Exam Final report (Normal) Comments: These results were obtained using wet preparation(s) and trichromestained smear. This test does not include testing for Cryptosporidiumparvum, Cyclospora, or Microsporidia. Result 1 NOCP (Normal) Comments: No ova, cysts, or parasites seen. :30 Stool Culture Comments: PATIENT NOT FASTINGClinical Information: SRC: STOOL PERFORMED BY: [email or web address] [employer] [facility] [id number] Campylobacter Culture Final report (Normal) E coli Shiga Toxin EIA Negative (Normal) Result 1 NCI (Normal) Comments: No Campylobacter species isolated. Result 1 NSS (Normal) Comments: No Salmonella or Shigella recovered. Salmonella/Shigella Screen Final report (Normal) :30 White Blood Cells (WBC), Comments: PATIENT NOT FASTINGPERFORMED BY: [email or web address] Nwztbh1443 [facility] [id number] Stool Result 1 NWBC (Normal) Comments: No white blood cells seen. White Blood Cells (WBC), Final report (Normal) Comments: Reference Range: None Seen Stool :01 CBC with manual diff (08159) Comments: PATIENT NOT FASTINGClinical Information: ADD DRAW FEE [id number] ADD J0 3378 PERFORMED BY: [email or web address] Tebesy2678 [facility] [id number] Baso (Absolute) 0.0 {x10E3/uL} (Normal) Range: 0.0-0.2 Basos 0 % (Normal) Range: 0-3 Eos 2 % (Normal) Range: 0-7 Eos (Absolute) 0.2 {x10E3/uL} (Normal) Range: 0.0-0.4 Hematocrit 40.7 % (Normal) Range: 34.0-44.0 Hemoglobin 13.7 g/dL (Normal) Range: 11.5-15.0 Lymphs 23 % (Normal) Range: 14-46 Lymphs (Absolute) 1.9 {x10E3/uL} (Normal) Range: 0.7-4.5 MCH 30.2 pg (Normal) Range: 27.0-34.0 MCHC 33.5 g/dL (Normal) Range: 32.0-36.0 MCV 90 fL (Normal) Range: 80-98 Monocytes 7 % (Normal) Range: 4-13 Monocytes(Absolute) 0.6 {x10E3/uL} (Normal) Range: 0.1-1.0 Neutrophils 68 % (Normal) Range: 40-74 Neutrophils (Absolute) 5.6 {x10E3/uL} (Normal) Range: 1.8-7.8 Platelets 314 {x10E3/uL} (Normal) Range: 140-415 RBC 4.53 {x10E6/uL} (Normal) Range: 3.80-5.10 RDW 13.4 % (Normal) Range: 11.7-15.0 WBC 8.3 {x10E3/uL} (Normal) Range: 4.0-10.5 94-Ssm-239973:01 Metabolic Panel, Comprehensive Comments: PATIENT NOT FASTINGPERFORMED BY: LabCoBacharach Institute for RehabilitationUqpdmy0141 [facility] [id number] (42864) A/G Ratio 1.3 (Normal) Range: 1.1-2.5 Albumin, Serum 4.5 g/dL (Normal) Range: 3.5-5.5 Alkaline Phosphatase, S 90 [iU]/L (Normal) Range: 25-150 ALT (SGPT) 38 [iU]/L (Normal) Range: 0-40 AST (SGOT) 26 [iU]/L (Normal) Range: 0-40 Bilirubin, Total 0.5 mg/dL (Normal) Range: 0.1-1.2 BUN 13 mg/dL (Normal) Range: 5-26 BUN/Creatinine Ratio 14 (Normal) Range: 8-27 Calcium, Serum 9.5 mg/dL (Normal) Range: 8.5-10.6 Carbon Dioxide, Total 23 mmol/L (Normal) Range: 20-32 Chloride, Serum 105 mmol/L (Normal) Range: 97-108 Creatinine, Serum 0.90 mg/dL (Normal) Range: 0.57-1.00 Comments: Please note reference interval change Globulin, Total 3.4 g/dL (Normal) Range: 1.5-4.5 Glom Filt Rate, Est >60 mL/min/1.73 Range: 60-128 (Normal) Glucose, Serum 104 mg/dL (Abnormal) Range: 65-99 If -Djiboutian >60 mL/min/1.73 Range: 60-128 (Normal) Comments: Note: Persistent reduction for 3 months or more in an eGFR<60 mL/min/1.73 m2 defines CKD. Patients with eGFR values>/=60 mL/min/1.73 m2 may also have CKD if evidence of persistentproteinuria is present. Additional information may be found [email or web address]. Potassium, Serum 4.0 mmol/L (Normal) Range: 3.5-5.2 Protein, Total, Serum 7.9 g/dL (Normal) Range: 6.0-8.5 Sodium, Serum 142 mmol/L (Normal) Range: 135-145 4-Xaa-294464:30 ACUTE ABDOMEN, INC CHEST Radiology Report See Note (Normal) Comments: Exam Number: [id number] THREE VIEWS ABDOMEN CLINICAL STATEMENTGeneralized abdominal pain, cramping, diarrhea. COMPARISON None. FINDINGSThe upright chest shows no focal consolidation, pleural effusion,pne umothorax or pulmonary nodules. The cardiac silhouette is withinnormal limits. The supine and upright abdomen demonstrates no intraperitoneal freeair. There is no evidence of obstruction or ileus. No organomegalyor pathologic calcifications. The osseous structures areunremarkable. Incidental note is made of partial sacralization of theL5 vertebral body. IMPRESSIONNo acute process within the chest or abdomen. Reported By: TONO FONTANEZ M.D. 7-Owq-469422:08 CBCD,SMEAR DIFF BAND 3 % (Normal) Range: 0-5 CELLS COUNTED 100 (Normal) HCT 37.6 % (Normal) Range: 37-47 HGB 13.1 g/dL (Normal) Range: 12.0-16.0 LYMPH 41 % (Normal) Range: 19-41 MCH 31.2 pg (Normal) Range: 27.0-32.0 MCHC 34.9 g/dL (Normal) Range: 32-36 MCV 89.4 fL (Normal) Range: 81-99 MONOCYTE 8 % (Normal) Range: 0-10 PLT 349 K/mm3 (Normal) Range: 150-450 PLT EST SeeNote (Normal) Comments: Result: ADEQUATE RBC 4.20 {M/mm3} (Normal) Range: 4.2-5.4 RDW 13.4 % (Normal) Range: 11.6-14.6 RED CELL MORPH SeeNote {NORMAL} (Normal) Comments: Result: NORM C+C SEGS 48 % (Normal) Range: 47-70 WBC 6.9 K/mm3 (Normal) Range: 4.4-11.0 Plan of Care Name Dates Details Instructions Hypertension, essential, benign : Reviewed Lab Indication: Hypertension, essential, benign Diabetes mellitus type 2, uncontrolled, without complications : Reviewed Lab Indication: Diabetes mellitus type 2, uncontrolled, without complications Immunocompromised : Reviewed Lab Indication: Immunocompromised Hypertension, essential, benign : Continue Current Prescription(s) Indication: Hypertension, essential, benign Hypertension, essential, benign : Follow up in 2 weeks- YUE BP BACK ON MEDS Indication: Hypertension, essential, benign Hypercholesteremia : Cholesterol mgmt Indication: Hypercholesteremia Hypertension, essential, benign : Reviewed Lab Indication: Hypertension, essential, benign Hypertension, essential, benign : HTN/CAD Red Flags Indication: Hypertension, essential, benign Diabetes mellitus type 2, uncontrolled, without complications : *Diabetes Education Indication: Diabetes mellitus type 2, uncontrolled, without complications Hypertension, essential, benign : Diet, Exercise, and Wt loss Indication: Hypertension, essential, benign Hypertension, essential, benign : HTN/CAD Red Flags Indication: Hypertension, essential, benign Hypertension, essential, benign : Continue Current Prescription(s) Indication: Hypertension, essential, benign Hypertension, essential, benign : HTN/CAD Red Flags Indication: Hypertension, essential, benign Non-traumatic subconjunctival hemorrhage of right eye : Follow up if no improvement or if symptoms worsen Indication: Non-traumatic subconjunctival hemorrhage of right eye Non-traumatic subconjunctival hemorrhage of right eye : Subconjunctival Hemorrhage *: hemorrhage Indication: Non-traumatic subconjunctival hemorrhage of right eye BMI 29.0-29.9,adult : Eprescribed prescriptions (G8553) Indication: BMI 29.0-29.9,adult Hypertension, essential, benign : Follow up in 2-3 weeks Indication: Hypertension, essential, benign Hypertension, essential, benign : Reviewed Medical Equipment Sales Letter Indication: Hypertension, essential, benign Hypertension, essential, benign : Reviewed Diagnostic Tests Indication: Hypertension, essential, benign Hypertension, essential, benign : Reviewed Lab Indication: Hypertension, essential, benign Diabetes mellitus type 2, uncontrolled, without complications : Follow up in 3 months Indication: Diabetes mellitus type 2, uncontrolled, without complications Fatty liver : Diet, Exercise, and Wt loss Indication: Fatty liver Vitamin D deficiency, unspecified : Follow up in 3 months Indication: Vitamin D deficiency, unspecified GERD (gastroesophageal reflux disease) : GERD Education Indication: GERD (gastroesophageal reflux disease) Hypertension, essential, benign : Diet, Exercise, and Wt loss Indication: Hypertension, essential, benign Hypertension, essential, benign : HTN/CAD Red Flags Indication: Hypertension, essential, benign Hypercholesteremia : Cholesterol mgmt Indication: Hypercholesteremia Diabetes mellitus type 2, uncontrolled, without complications : Eprescribed prescriptions (G8553) Indication: Diabetes mellitus type 2, uncontrolled, without complications Diabetes mellitus type 2, uncontrolled, without complications : Follow up in 3 months Indication: Diabetes mellitus type 2, uncontrolled, without complications GERD (gastroesophageal reflux disease) : GERD Education Indication: GERD (gastroesophageal reflux disease) Hypertension, essential, benign : HTN/CAD Red Flags Indication: Hypertension, essential, benign Hypercholesteremia : Cholesterol mgmt Indication: Hypercholesteremia Fatty liver : Diet, Exercise, and Wt loss Indication: Fatty liver Diabetes mellitus type 2, uncontrolled, without complications : *Diabetes Education Indication: Diabetes mellitus type 2, uncontrolled, without complications Psoriatic arthropathy : Reviewed Lab Indication: Psoriatic arthropathy Psoriatic arthropathy : Reviewed Medical Equipment Sales Letter Indication: Psoriatic arthropathy Encounter for gynecological examination without abnormal finding : *Well Female Maintenance ([facility]) Indication: Encounter for gynecological examination without abnormal finding Encounter for gynecological examination without abnormal finding : Pap/Pelvic/Bimanual/Rectal/Breast Exam was done. Indication: Encounter for gynecological examination without abnormal finding Upper respiratory infection : Follow up if no improvement or if symptoms worsen Indication: Upper respiratory infection Upper respiratory infection : Follow up if no improvement or if symptoms worsen Indication: Upper respiratory infection Upper respiratory infection : *URI Treatment Indication: Upper respiratory infection Upper respiratory infection : *URI Symptoms Indication: Upper respiratory infection Upper respiratory infection : *Antibiotic Usage Education - Female Indication: Upper respiratory infection Cough : Eprescribed prescriptions (G8553) Indication: Cough GERD (gastroesophageal reflux disease) : GERD Education Indication: GERD (gastroesophageal reflux disease) Diabetes mellitus type 2, uncontrolled, without complications : Follow up in 3 months Indication: Diabetes mellitus type 2, uncontrolled, without complications Psoriatic arthropathy : Reviewed Medical Equipment Sales Letter Indication: Psoriatic arthropathy Hypercholesteremia : Cholesterol mgmt Indication: Hypercholesteremia Hypercholesteremia : *Cholesterol - Nonprescription Treatment Indication: Hypercholesteremia Fatty liver : Diet, Exercise, and Wt loss Indication: Fatty liver Hypertension, essential, benign : HTN/CAD Red Flags Indication: Hypertension, essential, benign Diabetes mellitus type 2, uncontrolled, without complications : Diet, Exercise, and Wt loss Indication: Diabetes mellitus type 2, uncontrolled, without complications Diabetes mellitus type 2, uncontrolled, without complications : *Diabetes Education Indication: Diabetes mellitus type 2, uncontrolled, without complications Psoriatic arthropathy : Continue Current Prescription(s) Indication: Psoriatic arthropathy Sinusitis : Continue Current Prescription(s) Indication: Sinusitis BMI 29.0-29.9,adult : Follow up if no improvement or if symptoms worsen Indication: BMI 29.0-29.9,adult Sinusitis : Eprescribed prescriptions (G8553) Indication: Sinusitis Sinusitis : *URI Symptoms Indication: Sinusitis Sinusitis : *Antibiotic Usage Education - Female Indication: Sinusitis Flu-like symptoms : Eprescribed prescriptions (G8553) Indication: Flu-like symptoms Psoriatic arthropathy : Continue Current Prescription(s) Indication: Psoriatic arthropathy Nonsmoker : Follow up in 1 week Indication: Nonsmoker Flu-like symptoms : Eprescribed prescriptions (G8553) Indication: Flu-like symptoms GERD (gastroesophageal reflux disease) : GERD Education Indication: GERD (gastroesophageal reflux disease) Psoriatic arthropathy : Reviewed Medical Equipment Sales Letter Indication: Psoriatic arthropathy Hypertension, essential, benign : Diet, Exercise, and Wt loss Indication: Hypertension, essential, benign Hypertension, essential, benign : HTN/CAD Red Flags Indication: Hypertension, essential, benign Diabetes mellitus type 2, uncontrolled, without complications : Diabetes and Exercise: Preventing Low Blood Sugar: blood sugar Indication: Diabetes mellitus type 2, uncontrolled, without complications Bronchitis : *URI Symptoms Indication: Bronchitis Bronchitis : *Antibiotic Usage Education - Female Indication: Bronchitis BMI 29.0-29.9,adult : Eprescribed prescriptions (G8553) Indication: BMI 29.0-29.9,adult Osteopenia : Reviewed Diagnostic Tests Indication: Osteopenia BMI 29.0-29.9,adult : Eprescribed prescriptions (G8553) Indication: BMI 29.0-29.9,adult Encounter for gynecological examination without abnormal finding : Safe sex Indication: Encounter for gynecological examination without abnormal finding Encounter for gynecological examination without abnormal finding : HPV Vaccine Information 2005 Indication: Encounter for gynecological examination without abnormal finding Encounter for gynecological examination without abnormal finding : Self breast exam Indication: Encounter for gynecological examination without abnormal finding Encounter for gynecological examination without abnormal finding : *Well Female Maintenance ([facility]) Indication: Encounter for gynecological examination without abnormal finding Encounter for gynecological examination without abnormal finding : Pap/Pelvic/Bimanual/Rectal/Breast Exam was done. Indication: Encounter for gynecological examination without abnormal finding Hypertension, essential, benign : HTN/CAD Red Flags Indication: Hypertension, essential, benign Hypercholesteremia : Cholesterol mgmt Indication: Hypercholesteremia Diabetes mellitus type II, controlled, with no complications : Reviewed Lab Indication: Diabetes mellitus type II, controlled, with no complications Fatty liver : Diet, Exercise, and Wt loss Indication: Fatty liver Diabetes mellitus type II, controlled, with no complications : *Diabetes Education Indication: Diabetes mellitus type II, controlled, with no complications Diabetes mellitus type II, controlled, with no complications : Follow up in 3 months Indication: Diabetes mellitus type II, controlled, with no complications BMI 29.0-29.9,adult : Eprescribed prescriptions (G8553) Indication: BMI 29.0-29.9,adult Headache : Follow up if no improvement or if symptoms worsen Indication: Headache Sinusitis, acute : *URI Treatment Indication: Sinusitis, acute Sinusitis, acute : *URI Symptoms Indication: Sinusitis, acute Sinusitis, acute : *Antibiotic Usage Education - Female Indication: Sinusitis, acute Headache : Eprescribed prescriptions (G8553) Indication: Headache Diabetes mellitus type 2, uncontrolled, without complications : Follow up in 3 months Indication: Diabetes mellitus type 2, uncontrolled, without complications Hypercholesteremia : Cholesterol mgmt Indication: Hypercholesteremia Fatty liver : Continue Current Prescription(s) Indication: Fatty liver Hypertension, essential, benign : BP MONITORING - SELF Indication: Hypertension, essential, benign Hypertension, essential, benign : Continue Current Prescription(s) Indication: Hypertension, essential, benign Diabetes mellitus type 2, uncontrolled, without complications : Eprescribed prescriptions (G8553) Indication: Diabetes mellitus type 2, uncontrolled, without complications Diabetes mellitus type 2, uncontrolled, without complications : Continue Current Prescription(s) Indication: Diabetes mellitus type 2, uncontrolled, without complications Hypertension, essential, benign : Continue Current Prescription(s) Indication: Hypertension, essential, benign Pre-op evaluation : Instructions for the Patient Before and After Surgery *: instructions Indication: Pre-op evaluation Diabetes mellitus type 2, uncontrolled, without complications : Follow up in 3 months Indication: Diabetes mellitus type 2, uncontrolled, without complications Psoriatic arthropathy : Reviewed Medical Equipment Sales Letter Indication: Psoriatic arthropathy GERD (gastroesophageal reflux disease) : GERD Education Indication: GERD (gastroesophageal reflux disease) Diabetes mellitus type 2, uncontrolled, without complications : Reviewed Lab Indication: Diabetes mellitus type 2, uncontrolled, without complications Hypercholesteremia : Cholesterol mgmt Indication: Hypercholesteremia Fatty liver : Diet, Exercise, and Wt loss Indication: Fatty liver Hypertension, essential, benign : HTN/CAD Red Flags Indication: Hypertension, essential, benign Diabetes mellitus type 2, uncontrolled, without complications : Eprescribed prescriptions (G8553) Indication: Diabetes mellitus type 2, uncontrolled, without complications Diabetes mellitus type 2, uncontrolled, without complications : Diabetes and Exercise: Preventing Low Blood Sugar: blood sugar Indication: Diabetes mellitus type 2, uncontrolled, without complications Herniation of cervical intervertebral disc with radiculopathy : Reviewed Diagnostic Tests Indication: Herniation of cervical intervertebral disc with radiculopathy Cervical radiculopathy at C8 : Reviewed Diagnostic Tests Indication: Cervical radiculopathy at C8 Diabetes mellitus type 2, uncontrolled, without complications : Reviewed Lab Indication: Diabetes mellitus type 2, uncontrolled, without complications Diabetes mellitus type 2, uncontrolled, without complications : Follow up in 3 months Indication: Diabetes mellitus type 2, uncontrolled, without complications Hypertension, essential, benign : Continue Current Prescription(s) Indication: Hypertension, essential, benign Hypertension, essential, benign : HTN/CAD Red Flags Indication: Hypertension, essential, benign Fatty liver : HTN/CAD Red Flags Indication: Fatty liver Hypercholesteremia : Cholesterol mgmt Indication: Hypercholesteremia Diabetes mellitus type 2, uncontrolled, without complications : Eprescribed prescriptions (G8553) Indication: Diabetes mellitus type 2, uncontrolled, without complications Diabetes mellitus type 2, uncontrolled, without complications : Diabetes and Exercise: Preventing Low Blood Sugar: blood sugar Indication: Diabetes mellitus type 2, uncontrolled, without complications Pain in shoulder region, left : Follow up in 2 weeks Indication: Pain in shoulder region, left Need for prophylactic vaccination and inoculation against influenza : Flu Shots (Influenza Vaccine): flu shot Indication: Need for prophylactic vaccination and inoculation against influenza Well woman exam : Eprescribed prescriptions (G8553) Indication: Well woman exam Well woman exam : Pap/Pelvic/Bimanual/Rectal/Breast Exam was done. Indication: Well woman exam Abdominal pain, acute, right upper quadrant : Eprescribed prescriptions (G8553) Indication: Abdominal pain, acute, right upper quadrant Epigastric Pain : *Abd Pain Red Flags Indication: Epigastric Pain Diabetes mellitus type II, controlled, with no complications : Follow up in 3 months Indication: Diabetes mellitus type II, controlled, with no complications Hypertension, essential, benign : HTN/CAD Red Flags Indication: Hypertension, essential, benign Hypercholesteremia : Cholesterol mgmt Indication: Hypercholesteremia Diabetes mellitus type II, controlled, with no complications : Continue Current Prescription(s) Indication: Diabetes mellitus type II, controlled, with no complications Psoriatic arthropathy : Reviewed Medical Equipment Sales Letter Indication: Psoriatic arthropathy Diabetes mellitus type II, controlled, with no complications : Eprescribed prescriptions (G8553) Indication: Diabetes mellitus type II, controlled, with no complications Diabetes mellitus type II, controlled, with no complications : Diabetes and Exercise: Preventing Low Blood Sugar: blood sugar Indication: Diabetes mellitus type II, controlled, with no complications Diabetes mellitus type II, controlled, with no complications : Eprescribed prescriptions (G8553) Indication: Diabetes mellitus type II, controlled, with no complications Diabetes mellitus type II, controlled, with no complications : Follow up in 2 weeks- post modified cleanse adn regime - std process 30 min Indication: Diabetes mellitus type II, controlled, with no complications Psoriatic arthropathy : Reviewed Medical Equipment Sales Letter Indication: Psoriatic arthropathy Diabetes mellitus type II, controlled, with no complications : Follow up in 3 months Indication: Diabetes mellitus type II, controlled, with no complications Vitamin D deficiency, unspecified : Continue Current Prescription(s) Indication: Vitamin D deficiency, unspecified Hypertension, essential, benign : Continue Current Prescription(s) Indication: Hypertension, essential, benign Hypertension, essential, benign : HTN/CAD Red Flags Indication: Hypertension, essential, benign Hypercholesteremia : Cholesterol mgmt Indication: Hypercholesteremia Diabetes mellitus type II, controlled, with no complications : Reviewed Lab Indication: Diabetes mellitus type II, controlled, with no complications Diabetes mellitus type II, controlled, with no complications : Diabetes and Exercise: Preventing Low Blood Sugar: blood sugar Indication: Diabetes mellitus type II, controlled, with no complications Abdominal pain : *Abd Pain Red Flags Indication: Abdominal pain Hypercholesteremia : Cholesterol mgmt Indication: Hypercholesteremia Hypertension, essential, benign : HTN/CAD Red Flags Indication: Hypertension, essential, benign Diabetes mellitus type II, controlled, with no complications : Reviewed Lab Indication: Diabetes mellitus type II, controlled, with no complications Diabetes mellitus type II, controlled, with no complications : Follow up in 3 months Indication: Diabetes mellitus type II, controlled, with no complications Diabetes mellitus type II, controlled, with no complications : Eprescribed prescriptions (G8553) Indication: Diabetes mellitus type II, controlled, with no complications Diabetes mellitus type II, controlled, with no complications : Diabetes and Exercise: Preventing Low Blood Sugar: blood sugar Indication: Diabetes mellitus type II, controlled, with no complications Diabetes mellitus type 2, uncontrolled, without complications : *Diabetes Education Indication: Diabetes mellitus type 2, uncontrolled, without complications Bronchitis : *URI Treatment Indication: Bronchitis Bronchitis : *URI Symptoms Indication: Bronchitis Bronchitis : *Antibiotic Usage Education - Female Indication: Bronchitis Other abnormal glucose : Follow up in 5-6 weeks: do haic at this visit Indication: Other abnormal glucose Hypertension, essential, benign : BP MONITORING - SELF Indication: Hypertension, essential, benign Diabetes mellitus type 2, uncontrolled, without complications : Follow up in 11- 13 days Indication: Diabetes mellitus type 2, uncontrolled, without complications Need for prophylactic vaccination and inoculation against influenza : Flu (Influenza) *: flu shot Indication: Need for prophylactic vaccination and inoculation against influenza Diabetes mellitus type 2, uncontrolled, without complications : Follow up in 4 months Indication: Diabetes mellitus type 2, uncontrolled, without complications Fatty liver : Reviewed Lab Indication: Fatty liver Hypertension, essential, benign : HTN/CAD Red Flags Indication: Hypertension, essential, benign Fatty liver : Diet, Exercise, and Wt loss Indication: Fatty liver Hypercholesteremia : Cholesterol mgmt Indication: Hypercholesteremia Diabetes mellitus type 2, uncontrolled, without complications : Eprescribed prescriptions (G8553) Indication: Diabetes mellitus type 2, uncontrolled, without complications Hypercholesteremia : Cholesterol mgmt Indication: Hypercholesteremia Fatty liver : Diet, Exercise, and Wt loss Indication: Fatty liver GERD (gastroesophageal reflux disease) : Reviewed Medical Equipment Sales Letter Indication: GERD (gastroesophageal reflux disease) Hypertension, essential, benign : Diet, Exercise, and Wt loss Indication: Hypertension, essential, benign Hypertension, essential, benign : HTN/CAD Red Flags Indication: Hypertension, essential, benign Diabetes mellitus type 2, uncontrolled, without complications : Follow up in 3 months Indication: Diabetes mellitus type 2, uncontrolled, without complications Dysphagia : Follow up - Make appt after diagnostic tests Indication: Dysphagia Vitamin D deficiency, unspecified : *Calcium Education ([facility]) Indication: Vitamin D deficiency, unspecified Hypercholesteremia : Cholesterol mgmt Indication: Hypercholesteremia Diabetes mellitus type 2, uncontrolled, without complications : Diabetes and Exercise: Preventing Low Blood Sugar: blood sugar Indication: Diabetes mellitus type 2, uncontrolled, without complications Vitamin D deficiency, unspecified : Continue Current Prescription(s) Indication: Vitamin D deficiency, unspecified Depression : Continue Current Prescription(s) Indication: Depression Fatty liver : Diet, Exercise, and Wt loss Indication: Fatty liver Diabetes mellitus type 2, uncontrolled, without complications : Follow up in 3 months Indication: Diabetes mellitus type 2, uncontrolled, without complications Hypertension, essential, benign : Diet, Exercise, and Wt loss Indication: Hypertension, essential, benign Hypertension, essential, benign : HTN/CAD Red Flags Indication: Hypertension, essential, benign Hypercholesteremia : Reviewed Lab Indication: Hypercholesteremia Hypercholesteremia : Cholesterol mgmt Indication: Hypercholesteremia Fatty liver : Diet, Exercise, and Wt loss Indication: Fatty liver Abnormal blood chemistry : Reviewed Lab Indication: Abnormal blood chemistry Fatty liver : Diet, Exercise, and Wt loss Indication: Fatty liver Psoriatic arthropathy : Reviewed Medical Equipment Sales Letter Indication: Psoriatic arthropathy Psoriatic arthropathy : Continue Current Prescription(s) Indication: Psoriatic arthropathy Diabetes mellitus type 2, uncontrolled, without complications : Follow up in 3 months Indication: Diabetes mellitus type 2, uncontrolled, without complications Hypertension, essential, benign : HTN/CAD Red Flags Indication: Hypertension, essential, benign Hypercholesteremia : Cholesterol mgmt Indication: Hypercholesteremia Diabetes mellitus type 2, uncontrolled, without complications : Diabetes Overview (Living with Diabetes): diabetes type 2 Indication: Diabetes mellitus type 2, uncontrolled, without complications Well woman exam : Self breast exam Indication: Well woman exam Well woman exam : *Colon Cancer Screening Indication: Well woman exam Well woman exam : *Well Female Maintenance ([facility]) Indication: Well woman exam Well woman exam : Pap/Pelvic/Bimanual/Rectal/Breast Exam was done. Indication: Well woman exam ALLERGIC RHINITIS DUE TO OTHER ALLERGEN : Follow up if no improvement or if symptoms worsen Indication: ALLERGIC RHINITIS DUE TO OTHER ALLERGEN ALLERGIC RHINITIS DUE TO OTHER ALLERGEN : Allergy proofing Indication: ALLERGIC RHINITIS DUE TO OTHER ALLERGEN ALLERGIC RHINITIS DUE TO OTHER ALLERGEN : Allergy control Indication: ALLERGIC RHINITIS DUE TO OTHER ALLERGEN ALLERGIC RHINITIS DUE TO OTHER ALLERGEN : *URI Symptoms Indication: ALLERGIC RHINITIS DUE TO OTHER ALLERGEN Diarrhea : *Abd Pain Red Flags Indication: Diarrhea Abdominal pain, acute, right upper quadrant : Reviewed Diagnostic Tests Indication: Abdominal pain, acute, right upper quadrant Abdominal pain, acute, right upper quadrant : Reviewed Medical Equipment Sales Letter Indication: Abdominal pain, acute, right upper quadrant Abdominal pain, acute, right upper quadrant : *Abd Pain Red Flags Indication: Abdominal pain, acute, right upper quadrant Abdominal pain, acute, right upper quadrant : Abdominal Pain: pain Indication: Abdominal pain, acute, right upper quadrant Sinusitis, acute : *URI Symptoms Indication: Sinusitis, acute Sinusitis, acute : *Antibiotic Usage Education - Female Indication: Sinusitis, acute Sinusitis, acute : Sore Throat *: upper respiratory infection Indication: Sinusitis, acute Diabetes mellitus type 2, uncontrolled, without complications : Follow up in 3 months- do ekg Indication: Diabetes mellitus type 2, uncontrolled, without complications Hypertension, essential, benign : Continue Current Prescription(s) Indication: Hypertension, essential, benign Hypertension, essential, benign : HTN/CAD Red Flags Indication: Hypertension, essential, benign Hypercholesteremia : *Cholesterol - Nonprescription Treatment Indication: Hypercholesteremia Hypercholesteremia : Cholesterol mgmt Indication: Hypercholesteremia GERD (gastroesophageal reflux disease) : GERD Education Indication: GERD (gastroesophageal reflux disease) Vitamin D deficiency, unspecified : Continue Current Prescription(s) Indication: Vitamin D deficiency, unspecified Diabetes mellitus type 2, uncontrolled, without complications : Diabetes Overview (Living with Diabetes): diabetes type 2 Indication: Diabetes mellitus type 2, uncontrolled, without complications Hypertension, essential, benign : Continue Current Prescription(s) Indication: Hypertension, essential, benign Diabetes mellitus type 2, uncontrolled, without complications : Follow up in 3 months Indication: Diabetes mellitus type 2, uncontrolled, without complications Diabetes mellitus type 2, uncontrolled, without complications : Diet, Exercise, and Wt loss Indication: Diabetes mellitus type 2, uncontrolled, without complications Diabetes mellitus type 2, uncontrolled, without complications : *Diabetes Education Indication: Diabetes mellitus type 2, uncontrolled, without complications Diabetes mellitus type 2, uncontrolled, without complications : Reviewed Lab Indication: Diabetes mellitus type 2, uncontrolled, without complications GERD (gastroesophageal reflux disease) : GERD Education Indication: GERD (gastroesophageal reflux disease) Hypercholesteremia : *Cholesterol - Nonprescription Treatment Indication: Hypercholesteremia Hypercholesteremia : Cholesterol mgmt Indication: Hypercholesteremia Hypertension, essential, benign : HTN/CAD Red Flags Indication: Hypertension, essential, benign Other abnormal glucose : Reviewed Lab Indication: Other abnormal glucose Hypertension, essential, benign : Continue Current Prescription(s) Indication: Hypertension, essential, benign Hypercholesteremia : *Cholesterol - Nonprescription Treatment Indication: Hypercholesteremia Hypercholesteremia : Cholesterol mgmt Indication: Hypercholesteremia Hypertension, essential, benign : Diet, Exercise, and Wt loss Indication: Hypertension, essential, benign Hypertension, essential, benign : HTN/CAD Red Flags Indication: Hypertension, essential, benign GERD (gastroesophageal reflux disease) : GERD Education Indication: GERD (gastroesophageal reflux disease) Other abnormal glucose : Follow up in 4 months Indication: Other abnormal glucose Fatty liver : Reviewed Medical Equipment Sales Letter Indication: Fatty liver Fatty liver : Reviewed Diagnostic Tests Indication: Fatty liver Sinusitis, acute : *URI Treatment Indication: Sinusitis, acute Sinusitis, acute : *URI Symptoms Indication: Sinusitis, acute Sinusitis, acute : *Antibiotic Usage Education - Female Indication: Sinusitis, acute Hypertension, essential, benign : Diet, Exercise, and Wt loss Indication: Hypertension, essential, benign Hypertension, essential, benign : HTN/CAD Red Flags Indication: Hypertension, essential, benign Hypertension, essential, benign : HTN and Decongestants Indication: Hypertension, essential, benign Elevated blood-pressure reading without diagnosis of hypertension : Diet, Exercise, and Wt loss Indication: Elevated blood-pressure reading without diagnosis of hypertension Elevated blood-pressure reading without diagnosis of hypertension : HTN/CAD Red Flags Indication: Elevated blood-pressure reading without diagnosis of hypertension Elevated blood-pressure reading without diagnosis of hypertension : HTN and Decongestants Indication: Elevated blood-pressure reading without diagnosis of hypertension GERD (gastroesophageal reflux disease) : GERD Education Indication: GERD (gastroesophageal reflux disease) Other abnormal glucose : Diet, Exercise, and Wt loss Indication: Other abnormal glucose Other abnormal glucose : *Diabetes Education Indication: Other abnormal glucose Other specified viral infection, in conditions classified elsewhere and of unspecified site : *URI Symptoms Indication: Other specified viral infection, in conditions classified elsewhere and of unspecified site Other specified viral infection, in conditions classified elsewhere and of unspecified site : *URI Treatment Indication: Other specified viral infection, in conditions classified elsewhere and of unspecified site Psoriasis : Continue Current Prescription(s) Indication: Psoriasis Psoriasis : Reviewed Medical Equipment Sales Letter Indication: Psoriasis GERD (gastroesophageal reflux disease) : GERD Education Indication: GERD (gastroesophageal reflux disease) Other abnormal glucose : FOLLOW UP IN 4 MONTHS Indication: Other abnormal glucose Psoriasis : Reviewed Medical Equipment Sales Letter Indication: Psoriasis Psoriasis : FOLLOW UP IN 1 MONTH Indication: Psoriasis Vitamin D deficiency, unspecified : Reviewed Lab Indication: Vitamin D deficiency, unspecified Psoriatic arthropathy : Reviewed Medical Equipment Sales Letter Indication: Psoriatic arthropathy Psoriatic arthropathy : Continue Current Prescription(s) Indication: Psoriatic arthropathy Vitamin D deficiency, unspecified : *ERGOCALCIFEROL DOSAGE PER [place]WM[place] Indication: Vitamin D deficiency, unspecified Knee pain : FOLLOW UP IN 3 WEEKS Indication: Knee pain Elevated blood-pressure reading without diagnosis of hypertension : BP MONITORING - SELF Indication: Elevated blood-pressure reading without diagnosis of hypertension Elevated blood-pressure reading without diagnosis of hypertension : HTN/CAD Red Flags Indication: Elevated blood-pressure reading without diagnosis of hypertension Sinusitis, acute : *URI Treatment Indication: Sinusitis, acute Sinusitis, acute : *Antibiotic Usage Education - Female Indication: Sinusitis, acute Elevated LFTs : FOLLOW UP IN 3 MONTHS Indication: Elevated LFTs Other abnormal glucose : *Diabetes Education Indication: Other abnormal glucose Other abnormal glucose : DIET/EXERCISE Indication: Other abnormal glucose Other abnormal glucose : FOLLOW UP IN 1 MONTH Indication: Other abnormal glucose Other abnormal glucose : *Diabetes Education Indication: Other abnormal glucose Other abnormal glucose : Reviewed Lab Indication: Other abnormal glucose Vitamin D deficiency, unspecified : Reviewed Lab Indication: Vitamin D deficiency, unspecified Candidiasis of mouth : FOLLOW UP IN 2 WEEKS Indication: Candidiasis of mouth Diarrhea : Abd Pain Red Flags Indication: Diarrhea Diarrhea : Diarrhea Education Indication: Diarrhea Planned Observations HGB A1C ([id number])Indication: Diabetes mellitus type 2, uncontrolled, without complications On: Request CALCIFEDIOL ([id number])Indication: Vitamin D deficiency, unspecified On: Request TSH ([id number])Indication: Diabetes mellitus type 2, uncontrolled, without complications On: Request URINALYSIS, W/ MICRO ([id number])Indication: Diabetes mellitus type 2, uncontrolled, without complications On: Request MICROALBUMIN: CREATININE RATIO ([id number]) AND ([id number])Indication: Diabetes mellitus type 2, uncontrolled, without complications On: Request METABOLIC PANEL, COMPREHENSIVE ([id number])Indication: Diabetes mellitus type 2, uncontrolled, without complications On: Request LIPOPROTEIN, BLD, BY NMR ([id number])Indication: Diabetes mellitus type 2, uncontrolled, without complications On: Request CBC W/AUTO DIFF WBC ([id number])Indication: Diabetes mellitus type 2, uncontrolled, without complications On: 57-Faf-354541:36 Request HGB A1C ([id number])Indication: Diabetes mellitus type 2, uncontrolled, without complications On: :21 Request LIPID PANEL ([id number])Indication: Hypercholesteremia On: :16 Request Urine Protein Electrophoresis (UPEP) ([id number])Indication: Elevated serum globulin level On: :23 Request METABOLIC PANEL, COMPREHENSIVE ([id number])Indication: Hypertension, essential, benign On: 22-Xxp-149612:35 Request LIPID PANEL ([id number])Indication: Hypertension, essential, benign On: :34 Request CBC W/AUTO DIFF WBC ([id number])Indication: Hypertension, essential, benign On: :34 Request URINALYSIS, W/ MICRO ([id number])Indication: Diabetes mellitus type 2, uncontrolled, without complications On: :34 Request MICROALBUMIN: CREATININE RATIO ([id number]) AND ([id number])Indication: Diabetes mellitus type 2, uncontrolled, without complications On: :34 Request TSH ([id number])Indication: Diabetes mellitus type 2, uncontrolled, without complications On: :34 Request CALCIFIDIOL ([id number]) VIT D 25Indication: Vitamin D deficiency, unspecified On: :34 Request CALCIFIDIOL ([id number]) VIT D 25Indication: Vitamin D deficiency, unspecified On: :30 Request TSH ([id number])Indication: Diabetes mellitus type 2, uncontrolled, without complications On: :29 Request URINALYSIS, W/ MICRO ([id number])Indication: Hypertension, essential, benign On: :29 Request MICROALBUMIN: CREATININE RATIO ([id number]) AND ([id number])Indication: Hypertension, essential, benign On: :28 Request METABOLIC PANEL, COMPREHENSIVE ([id number])Indication: Hypertension, essential, benign On: :28 Request LIPID PANEL (06204)Indication: Hypercholesteremia On: : Request CBC W/AUTO DIFF WBC ([id number])Indication: Hypertension, essential, benign On: :28 Request HPV automatic ([id number])Indication: Screening for HPV (human papillomavirus) (Renamed from Encounter for screening for human papillomavirus (HPV)) On: 75-Hfx-888634:19 Request Thin prep Pap ([id number]) (no STD testing)Indication: Encounter for gynecological examination without abnormal finding On: 19-Mod-030184:00 Request CALCIFIDIOL ([id number]) VIT D 25Indication: Vitamin D deficiency, unspecified On: : Request TSH ([id number])Indication: Diabetes mellitus type 2, uncontrolled, without complications On: : Request URINALYSIS, W/ MICRO ([id number])Indication: Diabetes mellitus type 2, uncontrolled, without complications On: : Request MICROALBUMIN: CREATININE RATIO ([id number]) AND ([id number])Indication: Diabetes mellitus type 2, uncontrolled, without complications On: : Request METABOLIC PANEL, COMPREHENSIVE ([id number])Indication: Diabetes mellitus type 2, uncontrolled, without complications On: : Request LIPID PANEL ([id number])Indication: Hypercholesteremia On: : Request CBC W/AUTO DIFF WBC ([id number])Indication: Diabetes mellitus type 2, uncontrolled, without complications On: : Request Thin prep Pap ([id number]) (no STD testing)Indication: Well woman exam On: :21 Request TCGHL-[id number]-[id number] ([id number])Indication: Fatty liver On: :39 Request PT (Prothrobim Time) ([id number])Indication: Fatty liver On: :39 Request CALCIFIDIOL (17855) VIT D 25Indication: Vitamin D deficiency, unspecified On: :38 Request LIPID PANEL ([id number])Indication: Hypercholesteremia On: :38 Request TSH ([id number])Indication: Diabetes mellitus type II, controlled, with no complications On: :38 Request URINALYSIS, W/ MICRO ([id number])Indication: Hypertension, essential, benign On: :38 Request MICROALBUMIN: CREATININE RATIO (52853) AND ([id number])Indication: Hypertension, essential, benign On: :38 Request METABOLIC PANEL, COMPREHENSIVE ([id number])Indication: Hypertension, essential, benign On: :38 Request CBC W/AUTO DIFF WBC ([id number])Indication: Hypertension, essential, benign On: :38 Request CALCIFEDIOL ([id number])Indication: Vitamin D deficiency, unspecified On: :52 Request TSH ([id number])Indication: Diabetes mellitus type II, controlled, with no complications On: :52 Request URINALYSIS, W/ MICRO ([id number])Indication: Hypertension, essential, benign On: :52 Request MICROALBUMIN: CREATININE RATIO (52906) AND ([id number])Indication: Hypertension, essential, benign On: :52 Request METABOLIC PANEL, COMPREHENSIVE ([id number])Indication: Hypertension, essential, benign On: :52 Request CBC W/AUTO DIFF WBC ([id number])Indication: Hypertension, essential, benign On: :52 Request LIPID PANEL ([id number])Indication: Hypercholesteremia On: :52 Request FECAL OCCULT HGB ASSAY- tubes sent home ([id number])Indication: Well woman exam On: 00-Ucv-72551:30 Request Thin prep Pap ([id number])Indication: Well woman exam On: :30 Request Sed Rate Erythrocyte ([id number])Indication: Diarrhea On: 22-Eyw-696036:22 Request Metabolic Panel, Comprehensive ([id number])Indication: Diarrhea On: 35-Kww-367322:22 Request CBC with manual diff ([id number])Indication: Diarrhea On: 92-Uvx-132580:22 Request Rapid Strep Test, Office ([id number])Indication: Pharyngitis, acute On: :47 Request Urine Protein Electrophoresis (UPEP) ([id number])Indication: Abnormal blood chemistry On: :55 Request Serum Protein Electrophoresis (SPEP) ([id number])Indication: Abnormal blood chemistry On: :55 Request CALCIFIDIOL (76061) VIT D 25Indication: Vitamin D deficiency, unspecified On: :53 Request Comments: dp om 3-4 months HEPATIC FUNCTION PANEL (46952)Indication: Elevated LFTs On: :36 Request CREATININE CLEARANCE (37551) 24 HOURIndication: Other abnormal glucose On: :32 Request MICROALBUMIN: CREATININE RATIO (04720) AND ([id number])Indication: Other abnormal glucose On: :26 Request CALCIFEDIOL ([id number])Indication: Diarrhea On: 47-Uya-272143:16 Request Celiac Disease Antibody Profile (77254) x3 & (79192) X2- gliadin IgA, IgG and reticulin IgA, IgG and tissue transglutaminase IgA.Indication: Diarrhea On: :08 Request LISANDRO CULTURE-STOOL ([id number])Indication: Diarrhea On: :06 Request C-DIFFICILE, STOOL ([id number])Indication: Diarrhea On: 71-Apg-512215:06 Request LEUKOCYTE COUNT, FECAL ([id number])Indication: Diarrhea On: 87-Rbk-886266:06 Request OCCULT BLOOD FECES SCREEN ([id number])Indication: Diarrhea On: 57-Dba-982868:06 Request OVA & PARASITE DIR SMEAR ([id number])Indication: Diarrhea On: 98-Efe-186897:06 Request OVA & PARASITE DIR SMEAR ([id number])Indication: Diarrhea On: 99-Drt-852377:42 Request OCCULT BLOOD FECES SCREEN ([id number])Indication: Diarrhea On: 60-Yor-924821:42 Request LEUKOCYTE COUNT, FECAL ([id number])Indication: Diarrhea On: :42 Request C.Difficile, Stool ([id number])Indication: Diarrhea On: 22-Fix-597054:42 Request LISANDRO CULTURE-STOOL ([id number])Indication: Diarrhea On: 86-Cou-067226:42 Request CBC WITH MANUAL DIFF ([id number])Indication: Gastroenteritis On: 4-Pip-231048:45 Request Planned Encounters Medical; Well Woman Exam No PAP - On: 30-Jun-2018 9:00 [facility] Chanel Varma DO, DO, Kathleen Planned Procedures Flu Vaccine (Quadrivalent) On: 13-May-2018 Intent 55952Bb: Chanel Varma DO Comments: Lot #[id number]-L dltd, IMDose prefilled syringegiven by: Hector ARIAS.VIS reviewed and ABN signed Chanel Varma DO ELECTROCARDIOGRAM, COMPLETE On: 29-Apr-2018 Intent (ECG) (88313)By: Felicia HERNANDEZ, Comments: NSR NO ACUTE CHG Chanel Felicia DO, Chanel ELECTROCARDIOGRAM, COMPLETE On: 13-Oct-2017 Intent (ECG) ([id number])By: Felicia HERNANDEZ, Comments: nsr no acute chg - Chanel Chanel Varma DO SCREENING DIGITAL On: 25-Jun-2017 Intent TOMOSYNTHESIS OF BREAST ([id number])By: Chanel Varma DO, DO, Kathleen Aerosol Treatment ([id number])By: On: 04-Jun-2017 Intent Jessa Mcintyre LPN Radiology - ChestBy: [place] On: 06-Nov-2016 Intent Spring ANDRADE Aerosol Treatment (76060)By: On: 06-Nov-2016 Intent Spring Swartz CNP Aerosol Treatment ([id number])By: On: 01-Nov-2016 Intent Spring Swartz CNP Phenergan Injection, up to 50 On: 11-Oct-2016 Intent mg (J2550)By: Spring Swartz CNP Comments: lot:[id number]: 03/27site/route: LGM/IMamt: 1mLVIS signed when applicableChelsea, PREVENTION RN E ELECTROCARDIOGRAM, COMPLETE On: 23-Sep-2016 Intent (ECG) (58963)By: Felicia HERNANDEZ, Comments: nsr no acute chg - Chanel Chanel Varma DO Bone Density StudyBy: Felicia On: 20-May-2016 Intent Chanel HERNANDEZ DO, Kathleen BILATERAL MAMMOGRAMS On: 20-May-2016 Intent ([id number])By: Chanel Varma DO, DO, Kathleen Toradol Injection, 30 mg On: 15-Mar-2016 Intent (J1885)By: Spring Swartz CNP Comments: 1 ml given im rt hi lot [id number] 05/20/17 MRI CERVICAL SPINE W/O On: 14-Aug-2015 Intent CONTRAST (47500)By: Chanel Varma DO, DO, Kathleen Radiology - Cervical SpineBy: On: 25-Jul-2015 Intent Spring Swartz CNP Toradol Injection, 30 mg On: 24-May-2015 Intent ([id number])By: Spring Swartz CNP Radiology - Shoulder - On: 24-May-2015 Intent LeftBy: Spring Swartz CNP Radiology - Forearm - LeftBy: On: 24-May-2015 Intent Spring Swartz CNP EMGBy: Spring Swartz CNP On: 24-May-2015 Intent Nerve ConductionBy: [place] On: 24-May-2015 Intent Spring ANDRADE Flu Vaccine (Quadrivalent) On: 18-May-2015 Intent 18055Hm: Chanel Varma DO Comments: Lot #[id number]-L dltd, IMDose prefilled syringegiven by:MLong, LPNVIS and ABN signed Chanel Varma DO Ultrasound - GallbladderBy: On: 27-Mar-2015 Intent Chanel Varma DO Comments: attention CBD size-- Chanel HERNANDEZ EKG ([id number])By: Felicia HERNANDEZ, On: 22-Mar-2015 Intent Chanel Crow DO Comments: NSR NO ACUTE CHG MAMMOGRAM, SCREENING, BOTH On: 22-Mar-2015 Intent BREAST ([id number])By: Chanel Varma DO, DO, Kathleen Anoscopy (28470)By: Felicia On: 10-Oct-2014 Intent Chanel HERNANDEZ DO, Comments: se exam for findings Chanel IMMUNIZ ADMNIN, 1 VAC, On: 19-May-2014 Intent SNGL/COMBO (60586)By: Chanel Varma DO, DO, Kathleen FLU VAC, SPLIT, >3 YEARS, On: 19-May-2014 Intent INTRAMUSC (69024)By: Felicia Comments: lot: [id number]: 02/07/15site/route: Rdel/IMamt:0.5mLVIS signed when applicableChelsea, PREVENTION RN , Chanel Crow DO EKG (03425)By: Felicia HERNANDEZ, On: 19-May-2014 Intent Chanel Felicia DO, Chanel Comments: nsr no chg when compared to old Ultrasound - LiverBy: Felicia On: 28-Jan-2014 Intent DO, Chanel Felicia DO, Chanel Eprescribed prescriptions On: 31-Dec-2013 Intent (G8553)By: Felicia DO, Chanel Felicia DO, Chanel OtherBy: Felicia DO, Chanel On: 31-Dec-2013 Intent Felicia DO, Chanel Comments: esophagram with 13 mm tablet EKG (40735)By: Felicia HERNANDEZ, On: 14-Jun-2013 Intent Chanel Felicia DO, Chanel Comments: nsr no acute chg Eprescribed prescriptions On: 14-Jun-2013 Intent (G8553)By: Marissa Gomez LPN DXA, BONE DENSITY, AXIAL On: 10-May-2013 Intent SKELETON (07343)By: Comments: dx post menopausal Marissa Gomez LPN MAMMOGRAM, SCREENING, BOTH On: 10-May-2013 Intent BREASTS (21157)By: Jason, Comments: dx breast screening Marissa ARIAS INFUSION, NORMAL SALINE On: 25-Sep-2012 Intent SOLUTION , 1000 CC (Special Coverage Instructions Apply. See MCM: 2049) ([id number])By: Aby Douglas MD HYDRATION IV INFUSION, INIT On: 25-Sep-2012 Intent (63781)By: Aby Douglas MD hida scan with cckBy: Felicia On: 22-Jun-2012 Intent DO, Chanel Felicia DO, Chanel Eprescribed prescriptions On: 18-May-2012 Intent (G8553)By: Marissa Gomez LPN PNEUM VAC ADLT/IMUMNOSPR, On: 24-Jul-2011 Intent SBC/INTRM (90957)By: Felicia Comments: Lot #[id number]-left deltoidDose- 0.5mlgiven by: Harry Siddiqi LPN DO, Chanel Felicia DO, Chanel EKG ([id number])By: Felicia HERNANDEZ, On: 24-Jul-2011 Intent Chanel Felicia DO, Chanel Comments: nsr no acute chg- IMMUNIZ ADMNIN, 1 VAC, On: 24-Jul-2011 Intent SNGL/COMBO (30025)By: Chanel Varma DO, DO, Kathleen EKG (50123)By: Felicia HERNANDEZ, On: 21-Sep-2010 Intent Chanel Crow DO Comments: nsr no acute chg TDAP VACCINE >7 IM ([id number])By: On: 28-May-2010 Intent Chanel Varma DO Comments: Lot [id number] 9/12Site- R Dltd/IMDose 0.5mlgiven by: JUANA JAQUEZ DO, Kathleen IMMUNIZ ADMNIN, 1 VAC, On: 28-May-2010 Intent SNGL/COMBO (86978)By: Felicia Comments: Lot #[id number]- /11Site- L Dltd/IMDose 0.5mlgiven by: JUANA JAQUEZ DO, Kathleen Fearon DO, Kathleen FLU VAC, SPLIT, >3 YEARS, On: 28-May-2010 Intent INTRAMUSC (95536)By: Chanel Varma DO, DO, Kathleen Inhaler Demonstration On: 14-May-2010 Intent (72952)By: Spring Swartz CNP Pulse Oximetry (58478)By: On: 14-May-2010 Intent Srping Swartz CNP Aerosol Treatment (56317)By: On: 14-May-2010 Intent Spring Swartz CNP DXA, BONE DENSITY, AXIAL On: 18-Jan-2010 Intent SKELETON (74165)By: Chanel Varma DO, DO, Kathleen PHYSICAL THERAPY EVALUATION On: 27-Nov-2009 Intent (58535)By: Spring Swartz CNP Radiology - Knee - Left - On: 27-Nov-2009 Intent Weight BearingBy: Spring Swartz CNP Flu Vaccine, Split IM On: 23-May-2009 Intent (63086)By: Neeru ARIAS, Comments: Lot #[id number]-right deltoidgiven by:CARMELITA Tran INFUSION, NORMAL SALINE On: 28-Dec-2008 Intent SOLUTION , 1000 CC (Special Comments: IV Therapy initiated (Romulo Gomez LPN)22G, 1 inchSite: left a/cTolerated: wellno redness or swelling, no s/s infiltrationB. JUANA Hodges Coverage Instructions Apply. See [facility]: 2048) (J7030)By: Spring Swartz CNP HYDRATION IV INFUSION, INIT On: 28-Dec-2008 Intent (98618)By: Spring Swartz CNP Radiology - Abdomen SeriesBy: On: 14-Jan-2008 Intent Chanel Varma DO, DO, Kathleen INFUSION, NORMAL SALINE On: 14-Jan-2008 Intent SOLUTION , 1000 CC (Special Comments: Lot #:[id number] date:04-19 Amount given:1 liter Route: IVSite given:right anticub Given by: judit Coverage Instructions Apply. See [facility]: 2048) (J7050)By: Chanel Varma DO, DO, Kathleen IV Needle placement On: 14-Jan-2008 Intent (13405)By: Felicia HERNANDEZ, Comments: # 22 placed to right anticubital space without difficulty per Chanel Layne DO IV Infusion (57353)By: Felicia On: 14-Jan-2008 Chanel Thacker DO, DO, Kathleen Planned Medications INFUSION, NORMAL SALINE SOLUTION , 1000 CC Ordered: 25-Sep-2012 Pending Aby Douglas MD INJECTION, KETOROLAC TROMETHAMINE, PER 15 MG Ordered: 24-May-2015 Pending Spring Swartz CNP INJECTION, KETOROLAC TROMETHAMINE, PER 15 MG Ordered: 15-Mar-2016 Pending Spring Swartz CNP Phenergan 50 MG/ML Injection Solution Ordered: 11-Oct-2016 Pending Spring Swartz CNP Instructions Name Dates Details Nonsmoker : How to access health information online Indication: Nonsmoker Nonsmoker : How to access health information online - Detail Indication: Nonsmoker Nonsmoker : Patient Instructions Indication: Nonsmoker Nonsmoker : How to access health information online Indication: Nonsmoker Nonsmoker : How to access health information online - Detail Indication: Nonsmoker Nonsmoker : Patient Instructions Indication: Nonsmoker BMI 28.0-28.9,adult : How to access health information online Indication: BMI 28.0-28.9,adult BMI 28.0-28.9,adult : How to access health information online - Detail Indication: BMI 28.0-28.9,adult BMI 28.0-28.9,adult : Patient Instructions Indication: BMI 28.0-28.9,adult BMI 29.0-29.9,adult : How to access health information online Indication: BMI 29.0-29.9,adult BMI 29.0-29.9,adult : How to access health information online - Detail Indication: BMI 29.0-29.9,adult Redness of eye, right : Patient Instructions Indication: Redness of eye, right Nonsmoker : How to access health information online Indication: Nonsmoker Nonsmoker : How to access health information online - Detail Indication: Nonsmoker Nonsmoker : Patient Instructions Indication: Nonsmoker Diabetes mellitus type 2, uncontrolled, without complications : How to access health information online Indication: Diabetes mellitus type 2, uncontrolled, without complications Diabetes mellitus type 2, uncontrolled, without complications : How to access health information online - Detail Indication: Diabetes mellitus type 2, uncontrolled, without complications Diabetes mellitus type 2, uncontrolled, without complications : Patient Instructions Indication: Diabetes mellitus type 2, uncontrolled, without complications BMI 27.0-27.9,adult : Patient Instructions Indication: BMI 27.0-27.9,adult Nonsmoker : How to access health information online Indication: Nonsmoker Nonsmoker : Patient Instructions Indication: Nonsmoker Encounter for gynecological examination without abnormal finding : Patient Instructions Indication: Encounter for gynecological examination without abnormal finding Hypercholesteremia : DISCONTINUED - LIPID PANEL (28576) Indication: Hypercholesteremia Hypercholesteremia : DISCONTINUED - TSH (90876) Indication: Hypercholesteremia Diabetes mellitus type II, controlled, with no complications : DISCONTINUED - URINALYSIS, AUTOMATED W/ MICRO (67158) Indication: Diabetes mellitus type II, controlled, with no complications Diabetes mellitus type II, controlled, with no complications : DISCONTINUED - MICROALBUMIN: CREATININE RATIO (30703) AND (46320) Indication: Diabetes mellitus type II, controlled, with no complications Diabetes mellitus type II, controlled, with no complications : DISCONTINUED - METABOLIC PANEL, COMPREHENSIVE (24457) Indication: Diabetes mellitus type II, controlled, with no complications Diabetes mellitus type II, controlled, with no complications : DISCONTINUED - CBC WITH MANUAL DIFF (07322) Indication: Diabetes mellitus type II, controlled, with no complications Vitamin D deficiency, unspecified : DISCONTINUED - Vitamin D Hydroxy (82498) Indication: Vitamin D deficiency, unspecified Hypertension, essential, benign : DISCONTINUED - TSH (56008) Indication: Hypertension, essential, benign Hypertension, essential, benign : DISCONTINUED - URINALYSIS, AUTOMATED W/ MICRO (42862) Indication: Hypertension, essential, benign Hypertension, essential, benign : DISCONTINUED - MICROALBUMIN: CREATININE RATIO (10071) AND (24817) Indication: Hypertension, essential, benign Hypertension, essential, benign : DISCONTINUED - METABOLIC PANEL, COMPREHENSIVE (25726) Indication: Hypertension, essential, benign Hypertension, essential, benign : DISCONTINUED - CBC WITH MANUAL DIFF (57193) Indication: Hypertension, essential, benign Hypertension, essential, benign : DISCONTINUED - TSH (92532) Indication: Hypertension, essential, benign Hypertension, essential, benign : DISCONTINUED - URINALYSIS, AUTOMATED W/ MICRO (35834) Indication: Hypertension, essential, benign Hypertension, essential, benign : DISCONTINUED - MICROALBUMIN: CREATININE RATIO (34005) AND (63651) Indication: Hypertension, essential, benign Hypertension, essential, benign : DISCONTINUED - METABOLIC PANEL, COMPREHENSIVE (55444) Indication: Hypertension, essential, benign Hypertension, essential, benign : DISCONTINUED - LIPID PANEL (70323) Indication: Hypertension, essential, benign Hypertension, essential, benign : DISCONTINUED - CBC WITH MANUAL DIFF (31346) Indication: Hypertension, essential, benign Cough : How to access health information online Indication: Cough Cough : How to access health information online - Detail Indication: Cough Cough : Patient Instructions Indication: Cough BMI 28.0-28.9,adult : How to access health information online Indication: BMI 28.0-28.9,adult BMI 28.0-28.9,adult : How to access health information online - Detail Indication: BMI 28.0-28.9,adult BMI 28.0-28.9,adult : Patient Instructions Indication: BMI 28.0-28.9,adult BMI 29.0-29.9,adult : How to access health information online Indication: BMI 29.0-29.9,adult BMI 29.0-29.9,adult : How to access health information online - Detail Indication: BMI 29.0-29.9,adult BMI 29.0-29.9,adult : Patient Instructions Indication: BMI 29.0-29.9,adult Nonsmoker : How to access health information online Indication: Nonsmoker Nonsmoker : How to access health information online - Detail Indication: Nonsmoker Nonsmoker : Patient Instructions Indication: Nonsmoker Sinusitis : How to access health information online Indication: Sinusitis Sinusitis : How to access health information online - Detail Indication: Sinusitis Sinusitis : Patient Instructions Indication: Sinusitis Flu-like symptoms : How to access health information online Indication: Flu-like symptoms Flu-like symptoms : How to access health information online - Detail Indication: Flu-like symptoms Flu-like symptoms : Patient Instructions Indication: Flu-like symptoms Nonsmoker : How to access health information online Indication: Nonsmoker Nonsmoker : How to access health information online - Detail Indication: Nonsmoker Nonsmoker : Patient Instructions Indication: Nonsmoker Flu-like symptoms : How to access health information online Indication: Flu-like symptoms Flu-like symptoms : How to access health information online - Detail Indication: Flu-like symptoms Flu-like symptoms : Patient Instructions Indication: Flu-like symptoms Diabetes mellitus type 2, uncontrolled, without complications : How to access health information online Indication: Diabetes mellitus type 2, uncontrolled, without complications Diabetes mellitus type 2, uncontrolled, without complications : How to access health information online - Detail Indication: Diabetes mellitus type 2, uncontrolled, without complications Diabetes mellitus type 2, uncontrolled, without complications : Patient Instructions Indication: Diabetes mellitus type 2, uncontrolled, without complications BMI 29.0-29.9,adult : How to access health information online Indication: BMI 29.0-29.9,adult BMI 29.0-29.9,adult : How to access health information online - Detail Indication: BMI 29.0-29.9,adult BMI 29.0-29.9,adult : Patient Instructions Indication: BMI 29.0-29.9,adult BMI 29.0-29.9,adult : How to access health information online Indication: BMI 29.0-29.9,adult BMI 29.0-29.9,adult : How to access health information online - Detail Indication: BMI 29.0-29.9,adult BMI 29.0-29.9,adult : Patient Instructions Indication: BMI 29.0-29.9,adult Vitamin D deficiency, unspecified : Patient Instructions Indication: Vitamin D deficiency, unspecified BMI 29.0-29.9,adult : How to access health information online Indication: BMI 29.0-29.9,adult BMI 29.0-29.9,adult : How to access health information online - Detail Indication: BMI 29.0-29.9,adult BMI 29.0-29.9,adult : Patient Instructions Indication: BMI 29.0-29.9,adult Headache : How to access health information online Indication: Headache Headache : How to access health information online - Detail Indication: Headache Headache : Patient Instructions Indication: Headache Diabetes mellitus type 2, uncontrolled, without complications : How to access health information online Indication: Diabetes mellitus type 2, uncontrolled, without complications Diabetes mellitus type 2, uncontrolled, without complications : How to access health information online - Detail Indication: Diabetes mellitus type 2, uncontrolled, without complications Diabetes mellitus type 2, uncontrolled, without complications : Patient Instructions Indication: Diabetes mellitus type 2, uncontrolled, without complications Pre-op evaluation : How to access health information online Indication: Pre-op evaluation Pre-op evaluation : How to access health information online - Detail Indication: Pre-op evaluation Pre-op evaluation : Patient Instructions Indication: Pre-op evaluation Diabetes mellitus type 2, uncontrolled, without complications : How to access health information online Indication: Diabetes mellitus type 2, uncontrolled, without complications Diabetes mellitus type 2, uncontrolled, without complications : How to access health information online - Detail Indication: Diabetes mellitus type 2, uncontrolled, without complications Diabetes mellitus type 2, uncontrolled, without complications : Patient Instructions Indication: Diabetes mellitus type 2, uncontrolled, without complications Cervical radiculopathy at C8 : Patient Instructions Indication: Cervical radiculopathy at C8 Diabetes mellitus type 2, uncontrolled, without complications : How to access health information online Indication: Diabetes mellitus type 2, uncontrolled, without complications Diabetes mellitus type 2, uncontrolled, without complications : How to access health information online - Detail Indication: Diabetes mellitus type 2, uncontrolled, without complications Diabetes mellitus type 2, uncontrolled, without complications : Patient Instructions Indication: Diabetes mellitus type 2, uncontrolled, without complications Arm pain, medial, left : Patient Instructions Indication: Arm pain, medial, left Well woman exam : How to access health information online Indication: Well woman exam Well woman exam : How to access health information online - Detail Indication: Well woman exam Well woman exam : Patient Instructions Indication: Well woman exam Abdominal pain, acute, right upper quadrant : Patient Instructions Indication: Abdominal pain, acute, right upper quadrant Abdominal pain, acute, right upper quadrant : How to access health information online Indication: Abdominal pain, acute, right upper quadrant Abdominal pain, acute, right upper quadrant : How to access health information online - Detail Indication: Abdominal pain, acute, right upper quadrant Diabetes mellitus type II, controlled, with no complications : How to access health information online Indication: Diabetes mellitus type II, controlled, with no complications Diabetes mellitus type II, controlled, with no complications : How to access health information online - Detail Indication: Diabetes mellitus type II, controlled, with no complications Diabetes mellitus type II, controlled, with no complications : Patient Instructions Indication: Diabetes mellitus type II, controlled, with no complications Diabetes mellitus type II, controlled, with no complications : How to access health information online Indication: Diabetes mellitus type II, controlled, with no complications Diabetes mellitus type II, controlled, with no complications : How to access health information online - Detail Indication: Diabetes mellitus type II, controlled, with no complications Diabetes mellitus type II, controlled, with no complications : Patient Instructions Indication: Diabetes mellitus type II, controlled, with no complications Diabetes mellitus type II, controlled, with no complications : Patient Instructions Indication: Diabetes mellitus type II, controlled, with no complications Diabetes mellitus type II, controlled, with no complications : Patient Instructions Indication: Diabetes mellitus type II, controlled, with no complications Psoriatic arthropathy : Patient Instructions Indication: Psoriatic arthropathy Diabetes mellitus type 2, uncontrolled, without complications : How to access health information online - Detail Indication: Diabetes mellitus type 2, uncontrolled, without complications Diabetes mellitus type 2, uncontrolled, without complications : How to access health information online Indication: Diabetes mellitus type 2, uncontrolled, without complications Diabetes mellitus type 2, uncontrolled, without complications : Patient Instructions Indication: Diabetes mellitus type 2, uncontrolled, without complications GERD (gastroesophageal reflux disease) : Patient Instructions- lab ordre in chart to yue chol and vit d in 4 months - fasting required Indication: GERD (gastroesophageal reflux disease) Diabetes mellitus type 2, uncontrolled, without complications : Patient Instructions Indication: Diabetes mellitus type 2, uncontrolled, without complications Body mass index (BMI) of 30.0-30.9 in adult : obesity counseling Indication: Body mass index (BMI) of 30.0-30.9 in adult Diabetes mellitus type 2, uncontrolled, without complications : Patient Instructions Indication: Diabetes mellitus type 2, uncontrolled, without complications Well woman exam : Patient Instructions: set up general medical visit Indication: Well woman exam Body aches : Patient Instructions Indication: Body aches Abdominal pain, acute, right upper quadrant : Patient Instructions Indication: Abdominal pain, acute, right upper quadrant Sinusitis, acute : Patient Instructions Indication: Sinusitis, acute Encounters Office Visit On: 13-May-2018 9:10 Encounter Reason: Follow up tests - Date: (04/29/18)., [ADDITIONAL REASON] Follow up Hypertension - blood pressure range :. Encounter Diagnosis: BMI 29.0- 29.9,adult, Nonsmoker, Hypertension, essential, benign, End: 13-May-2018 11:28 Need for prophylactic vaccination and inoculation against influenza, Immunocompromised, Psoriatic arthropathy, Post-nasal drip, Diabetes mellitus type 2, uncontrolled, without complications, Nausea (787.02) [facility] Office Visit On: 29-Apr-2018 11:03 Encounter Reason: Follow up for chronic medical issues - The patient does not feel well (was in er last week for gi bug now has a cold), has decreased energy level and is sleeping poorly. Patient has been compliant with End: 29-Apr-2018 13:49 instructions. Current medication use: no side effects and compliant with dosing regimen. Patient sleeps 5 hours per night. Nutrition: balanced diet and supplemental vitamins. The medical issues the marco ent is following up for include All identified problems below, blood sugar issues, high blood pressure and high cholesterol. weight :., [ADDITIONAL REASON] Follow up tests - Date: (04/22/18). Encounter Diagnosis: BMI 29.0-29.9,adult, Nonsmoker, Hypertension, essential, benign, Diabetes mellitus type 2, uncontrolled, without complications, Hypercholesteremia, Psoriatic arthropathy, Immunocompromised, Vitamin D deficiency, unspecified [facility] Office Visit On: 20-Mar-2018 10:34 Encounter Reason: Follow up Hypertension - There has been no associated excessive caffeine intake. blood pressure range : (120/80).Encounter Diagnosis: Nonsmoker, BMI 28.0-28.9,adult, Hypertension, essential, benign, End: 20-Mar-2018 11:41 Diabetes mellitus type 2, uncontrolled, without complications [facility] Office Visit On: 02-Mar-2018 11:34 Encounter Reason: Eye Redness - Symptoms include eye redness. Symptoms are located in the right eye. Onset was 3 day(s) ago. The symptoms occur constantly. The patient describes this as worsening. Presentation included e End: 02-Mar-2018 12:11 ye redness and eye pain (just tender around area). Note for Eye redness: Symptoms started 3 days ago with broken blood vessel in right eye. No change in vision or blurry vision and no pain. Just start ed atenolol-and is feeling very fatigued on it. Has only been on it for 3 days. Taking it in the morning and monitoring blood pressure. Did not take BP medications this morning.Encounter Diagnosis: Redness of eye, right, BMI 29.0-29.9,adult, Non-traumatic subconjunctival hemorrhage of right eye, Hypertension, essential, benign, Nonsmoker [facility] Office Visit On: 27-Feb-2018 8:25 Encounter Reason: Follow up ER - Reason for hospitalization note: ([facility] er sat night for the worst h/a of my life and took tejinder 180/110 so they did a scan and said no stroke. So not sure if it was bp causing h/a or End: 27-Feb-2018 9:12 vis versa. I think may habve been some heart related and I also have a pulled muscle in neck.). Patient has been compliant with instructions. Current medication use: no side effects and compliant with d osing regimen. The patient does not feel well (h/s this am) and has decreased energy level.Encounter Diagnosis: BMI 29.0-29.9,adult, Nonsmoker, Hypertension, essential, benign, Nausea (787.02), Acute intractable headache, unspecified headache type [facility] Office Visit On: 14-Jan-2018 8:35 Encounter Reason: Follow up tests - Date: (01/08/18 labs)., [ADDITIONAL REASON] Follow up for chronic medical issues - The patient feels well with minor complai End: 14-Jan-2018 9:22 nts, has decreased energy level (feeling tired lately) and is sleeping poorly. Patient has been compliant with instructions. Current medication use: no side effects and compliant with dosing regimen. Bryant hanson sleeps 5 hours per night. Nutrition: balanced diet and supplemental vitamins. The medical issues the patient is following up for include All identified problems below, blood sugar issues, high blood pressure and high cholesterol. weight :. Encounter Diagnosis: Nonsmoker, BMI 29.0-29.9,adult, Diabetes mellitus type 2, uncontrolled, without complications, Hypercholesteremia, Hypertension, essential, benign, Psoriatic arthropathy, GERD (gastroesophageal reflux disease), Vitamin D deficiency, unspecified, Immunocompromised, Fatty liver, Nutritional counseling [facility] Phone Encounter On: 15-Oct-2017 16:13 Encounter Diagnosis: Hypercholesteremia End: 15-Oct-2017 16:15 [facility] Office Visit On: 13-Oct-2017 9:04 Encounter Reason: Follow up tests - Date: (09/25/17)., [ADDITIONAL REASON] Follow up for chronic medical issues - The patient feels well with minor complai End: 13-Oct-2017 11:01 nts, has decreased energy level and is sleeping poorly. Patient has been compliant with instructions. Current medication use: no side effects and compliant with dosing regimen. Patient sleeps 5 hours pe r night. Nutrition: balanced diet and supplemental vitamins. The medical issues the patient is following up for include All identified problems below, blood sugar issues, high blood pressure and high cholesterol. weight :. Encounter Diagnosis: BMI 27.0-27.9,adult, Nonsmoker, Elevated serum globulin level, Immunocompromised, Fatty liver, Hypercholesteremia, Vitamin D deficiency, unspecified, Hypertension, essential, benign, Psoriatic arthropathy, Diabetes mellitus type 2, uncontrolled, without complications, GERD (gastroesophageal reflux disease) [facility] Office Visit On: 25-Jun-2017 9:38 Encounter Reason: Well Women Exam - The patient does not feel well, has good energy level and is sleeping well. Pap smear: date of last pap: (2015). Contraceptive history: The patient is not using any method of contracep End: 25-Jun-2017 10:14 tion at this time. Patient does not exercise. The patient reports that she performs monthly self breast exam. Calcium intake includes 1200 mg daily supplment and 1 serving milk daily. The patient denies the use of oral contraceptives or hormone replacement therapy. Menstruation: Last menstrual period date: (over 10 years).Encounter Diagnosis: Encounter for gynecological examination without abnormal finding, Encounter for screening mammogram for breast cancer (Renamed from Encounter for screening mammogram for malignant neoplasm of breast), Post-menopausal, BMI 28.0-28.9,adult [facility] Office Visit On: 04-Jun-2017 14:49 Encounter Reason: Cough - Symptoms include cough and runny nose. The cough is described as non-productive. Cough onset was 3 week(s) ago. The cough occurs intermittently. Symptoms are described as worsening. Current flako End: 04-Jun-2017 15:09 tment includes antihistamines. Previous presentation included a cough and dyspnea., [ADDITIONAL REASON] Sore Throat - Note for Sore throat: Sore throat 3 weeks ago then into head cold then cough Encounter Diagnosis: BMI 28.0-28.9,adult, Cough, Hypertension, essential, benign, Upper respiratory infection, Osteopenia, Vitamin D deficiency, unspecified, Diabetes mellitus type II, controlled, with no complications, Hypercholesteremia [facility] Office Visit On: 27-Jan-2017 11:31 Encounter Reason: SPEncounter Diagnosis: Nonsmoker, BMI 28.0-28.9,adult, Fatty liver, Hypertension, essential, benign, Psoriatic arthropathy, GERD (gastroesophageal reflux disease) End: 27-Jan-2017 12:14 [facility] Office Visit On: 30-Dec-2016 10:53 Encounter Reason: Follow up for chronic medical issues - The patient does not feel well (allergies), has good energy level and is sleeping well. Patient has been compliant with instructions. Current medication use: no si End: 30-Dec-2016 16:53 de effects and compliant with dosing regimen. Patient sleeps 7 hours per night. Nutrition: balanced diet and supplemental vitamins. The medical issues the patient is following up for include All identif ied problems below, blood sugar issues, high blood pressure and high cholesterol. blood pressure range :, fasting blood sugars : and weight :.Encounter Diagnosis: Diabetes mellitus type 2, uncontrolled, without complications, Nonsmoker, BMI 29.0-29.9,adult, Psoriatic arthropathy, Immunocompromised, Hypercholesteremia, Hypertension, essential, benign, Fatty liver, GERD (gastroesophageal reflux disease), Vitamin D deficiency, unspecified, Post-nasal drip [facility] Office Visit On: 28-Nov-2016 13:05 Encounter Reason: Follow up acute care visit - The patient does not feel well and improving (slow improvement). Patient has been compliant with instructions. The medical issues the patient is following up for include URI.Encounter Diagnosis: End: 28-Nov-2016 13:35 BMI 29.0-29.9,adult, Nonsmoker, Chest tightness, Sinusitis, Immunocompromised, Psoriatic arthropathy [facility] Office Visit On: 06-Nov-2016 8:20 Encounter Reason: Follow up acute care visit - The patient does not feel well and improving (slow improvement). Patient has been compliant with instructions. The medical issues the patient is following up for include URI.Encounter Diagnosis: End: 06-Nov-2016 10:18 BMI 29.0-29.9,adult, Nonsmoker, Sinusitis, Cough (786.2), Immunocompromised, Chest tightness [facility] Office Visit On: 01-Nov-2016 13:09 Encounter Reason: Cold Symptoms - Symptoms include nasal congestion, runny nose, sore throat, productive cough, facial pressure and headache. Onset was 5 day(s) ago. The symptoms occur constantly. The patient describes t End: 01-Nov-2016 13:34 his as worsening. Associated symptoms include fatigue, fever and chills. Previous presentation included nasal congestion, runny nose, postnasal drainage, productive cough, fever and chills. Past treatme nt has included non-prescription cold medication.Encounter Diagnosis: BMI 29.0-29.9,adult, Nonsmoker, Flu-like symptoms, Sinusitis, Wheezing (786.07), Immunocompromised [facility] Office Visit On: 21-Oct-2016 10:36 Encounter Reason: Follow up acute care visit - The patient feeling better since last seen. Patient has been compliant with instructions. Current medication use: no side effects and compliant with dosing regimen.Encounter Diagnosis: End: 21-Oct-2016 12:17 BMI 29.0-29.9,adult, Nonsmoker, Flu-like symptoms, Nausea, Psoriatic arthropathy [facility] Annotation/Addendum On: 11-Oct-2016 15:18 Encounter Diagnosis: Unspecified Diagnosis End: 11-Oct-2016 15:20 [facility] Office Visit On: 11-Oct-2016 14:00 Encounter Reason: Flu Like Symptoms - Symptoms include body aches, postnasal drainage and headache. Associated symptoms include nausea, vomiting, diarrhea, fever and chills. Note for Flu like symptoms: started with nausea and diarhea End: 11-Oct-2016 15:17 Encounter Diagnosis: BMI 29.0-29.9,adult, Nonsmoker, Flu-like symptoms, Nausea, Headache [facility] Office Visit On: 23-Sep-2016 9:04 Encounter Reason: Follow up for chronic medical issues - The patient feels well with minor complaints, has good energy level and is sleeping well. Patient has been compliant with instructions. Current medication use: no End: 23-Sep-2016 12:58 side effects and compliant with dosing regimen. Patient sleeps 8 hours per night. Nutrition: balanced diet and supplemental vitamins. The medical issues the patient is following up for include All ident ified problems below, blood sugar issues, high blood pressure, high cholesterol and other. blood pressure range :, fasting blood sugars : and weight :.Encounter Diagnosis: Diabetes mellitus type 2, uncontrolled, without complications, BMI 29.0-29.9,adult, Nonsmoker, Vitamin D deficiency, unspecified, Hypertension, essential, benign, Hypercholesteremia, Fatty liver, Psoriatic arthropathy, GERD (gastroesophageal reflux disease) [facility] Office Visit On: 06-Sep-2016 13:56 Encounter Reason: Sinusitis - No changes in management were made at the last visit. Symptoms include nasal congestion and cough. Onset was sudden 1 week(s) ago. The symptoms occur occasionally. The patient describes this End: 06-Sep-2016 16:03 as severe and worsening. Note for Sinusitis: had fever but gone after 2 daysEncounter Diagnosis: Nonsmoker, BMI 29.0-29.9,adult, Bronchitis, Cough (786.2) [facility] Office Visit On: 02-Aug-2016 6:44 Encounter Reason: Follow up tests - Date: (dexa july 2016).Encounter Diagnosis: Nonsmoker, BMI 29.0-29.9,adult, Pneumococcal vaccination given, Vitamin D deficiency, unspecified, Post-menopausal, Osteopenia End: 02-Aug-2016 10:23 [facility] Office Visit On: 23-May-2016 12:58 Encounter Reason: Well Women Exam - The patient feels well with minor complaints, has good energy level and is sleeping well. Pap smear: date of last pap: (1 yr). Contraceptive history: The patient is not using any metho End: 23-May-2016 15:22 d of contraception at this time. Patient exercises a weekly. The patient reports that she performs monthly self breast exam. Calcium intake includes 1 serving milk daily. The patient denies the use of o ral contraceptives or hormone replacement therapy. Menstruation: Last menstrual period date: (yrs).Encounter Diagnosis: Encounter for gynecological examination without abnormal finding, Screening for HPV (human papillomavirus) (Renamed from Encounter for screening for human papillomavirus (HPV)) [facility] Office Visit On: 20-May-2016 8:53 Encounter Reason: Follow up for chronic medical issues - The patient feels well with minor complaints, has good energy level and is sleeping well. Patient has been compliant with instructions. Current medication use: no End: 21-May-2016 8:17 side effects, compliant with dosing regimen and not considered effective by patient (wonder about the effectiveness of humira - [facility] manages). Patient sleeps 7 hours per night. Nutrition: balanced d iet and supplemental vitamins. The medical issues the patient is following up for include All identified problems below, blood sugar issues, high blood pressure and high cholesterol. blood pressure range :, fasting blood sugars : and weight :., [ADDITIONAL REASON] Follow up tests - Date: (05.17.16). Encounter Diagnosis: BMI 29.0-29.9,adult, Nonsmoker, Breast cancer screening, Post-menopausal, Hypercholesteremia, Vitamin D deficiency, unspecified, Hypertension, essential, benign, Fatty liver , Diabetes mellitus type II, controlled, with no complications [facility] Office Visit On: 15-Mar-2016 14:35 Encounter Reason: Headache - Symptoms include typical headache features and nausea, while symptoms do not include vomiting, photophobia, phonophobia, numbness, tingling or weakness. The headache is located in the left fr End: 15-Mar-2016 15:19 ontal area and in the right frontal area. The pain radiates to the left neck and right neck. The patient describes the pain as aching. Onset was week(s) ago. The symptoms occur intermittently (really bad in the morning and then subsides a little). Encounter Diagnosis: Sinusitis, acute, Headache [facility] Office Visit On: 15-Jan-2016 12:49 Encounter Reason: Follow up for chronic medical issues - The patient feels well with minor complaints, has good energy level and is sleeping well. Patient has been compliant with instructions. Current medication use: no End: 15-Jan-2016 13:39 side effects and compliant with dosing regimen. Patient sleeps 7 hours per night. Nutrition: balanced diet and supplemental vitamins. The medical issues the patient is following up for include All ident ified problems below, blood sugar issues, high blood pressure and high cholesterol. blood pressure range :, fasting blood sugars : and weight :.Encounter Diagnosis: Diabetes mellitus type 2, uncontrolled, without complications, Psoriatic arthropathy , Hypertension, essential, benign, Fatty liver, Vitamin D deficiency, unspecified, Hypercholesteremia [facility] Office Visit On: 08-Dec-2015 9:55 Encounter Diagnosis: Herniation of cervical intervertebral disc with radiculopathy, Psoriatic arthropathy, Pain in shoulder region, left End: 08-Dec-2015 11:19 [facility] Office Visit On: 06-Nov-2015 9:17 Encounter Reason: Pre-Op Visit - The procedure scheduled is a Cervical 4-5,5-6,6-7 on 11/14/15. The surgeon for the procedure will be Dr. Edin Cotter.Encounter Diagnosis: Pre-op evaluation, Hypertension, essential, benign, Psoriatic arthropathy, End: 06-Nov-2015 10:27 Diabetes mellitus type 2, uncontrolled, without complications, Fatty liver [facility] Office Visit On: 16-Oct-2015 9:05 Encounter Reason: Follow up for chronic medical issues - The patient does not feel well, has decreased energy level and is sleeping poorly. Patient has been compliant with instructions. Current medication use: no side ef End: 16-Oct-2015 10:28 fects and compliant with dosing regimen. Patient sleeps 7 hours per night. Nutrition: inappropriate diet. The medical issues the patient is following up for include All identified problems below, blood sugar issues, high blood pressure, high cholesterol and other. fasting blood sugars : and weight :.Encounter Diagnosis: Diabetes mellitus type 2, uncontrolled, without complications, Psoriatic arthropathy, Vitamin D deficiency, unspecified, Hypertension, essential, benign, Fatty liver, Hypercholesteremia, GERD (gastroesophageal reflux disease), Herniation of cervical intervertebral disc with radiculopathy [facility] Office Visit On: 31-Aug-2015 8:04 Encounter Reason: Follow up tests - Date: (08/18/15 mri).Encounter Diagnosis: Herniation of cervical intervertebral disc with radiculopathy, Cervical radiculopathy at C7 End: 31-Aug-2015 15:11 [facility] Office Visit On: 14-Aug-2015 14:37 Encounter Reason: Follow up tests - Date: (07/25/15 ncs/emg).Encounter Diagnosis: Cervical radiculopathy at C8 End: 14-Aug-2015 16:12 [facility] Annotation/Addendum On: 25-Jul-2015 13:22 Encounter Diagnosis: Cervical radiculopathy at C8 End: 25-Jul-2015 13:25 [facility] Office Visit On: 23-Jun-2015 8:06 Encounter Reason: Follow up tests - Date: (06/17/15 labs)., [ADDITIONAL REASON] Follow up for chronic medical issues - The patient feels well with minor complai End: 23-Jun-2015 9:12 nts (pt for wrist and arm), has good energy level and is sleeping poorly. Patient has been compliant with instructions. Current medication use: no side effects and compliant with dosing regimen. Patient sleeps 6 hours per night. Nutrition: balanced diet and supplemental vitamins. The medical issues the patient is following up for include All identified problems below, blood sugar issues, high blood pr essure and high cholesterol. blood pressure range :, fasting blood sugars : and weight :. Encounter Diagnosis: Diabetes type II,uncontrolled, no comp (250.02), Hypercholesteremia, Fatty Liver (571.8), HYPERTENSION, BENIGN ESSENTIAL (401.1), Malaise and fatigue [facility] Office Visit On: 24-May-2015 15:04 Encounter Reason: Shoulder Problem - This shoulder problem is without any known injury. The patient is right hand dominant. The injury involved the left shoulder. This occurred 3 month(s) ago. The last clinic visit was 1 End: 24-May-2015 15:29 week(s) ago. Symptoms include shoulder pain, tenderness and decreased range of motion. Symptoms are located in the left shoulder and left lateral shoulder. The pain radiates to the left upper arm. Onse t was sudden 3 month(s) ago. The symptoms occur constantly. The episodes occur daily. Symptoms are exacerbated by motion at the shoulder. Symptoms are not relieved by application of ice, application of heat, use of a sling, shoulder immobilizer, restricted activity, nonsteroidal anti- inflammatory drugs, non-opioid analgesics, opioid analgesics or physical therapy. The patient is currently able to do a ctivities of daily living with limitations. The patient was previously evaluated in this clinic. Previous presentation included shoulder injury and shoulder stiffness., [ADDITIONAL REASON] Arm pain - The onset of the pain has been gradual and has been occurring in a persistent pattern for 1 month. The course has been recurrent. The pain is described as moderate. The pain is described as being located in the left forearm. The pain is relieved by nothing. Encounter Diagnosis: Arm pain, medial, left, Pain in shoulder region, left [facility] Office Visit On: 8-Oct-2015 7:19 Encounter Reason: Well Women Exam - The patient feels well with minor complaints, has decreased energy level and is sleeping poorly. Pap smear: date of last pap: (05.10.13). Contraceptive history: The patient is not using End: 18-May-2015 7:54 any method of contraception at this time. Patient does not exercise. The patient reports that she performs monthly self breast exam. Calcium intake includes 1200 mg daily supplment. The patient denies the use of oral contraceptives or hormone replacement therapy. Menstruation: Last menstrual period date: (8 years)., [ADDITIONAL REASON] Follow up tests - Date: (mammo 2014). Encounter Diagnosis: Well woman exam, Need for prophylactic vaccination and inoculation against influenza [facility] Office Visit On: 27-Mar-2015 13:52 Encounter Reason: Abdominal pain - The onset of the pain has been sudden and has been occurring in an intermittent pattern for 3 days. The course has been constant. The pain is described as a mild dull ache. The pain is End: 27-Mar-2015 15:20 described as being located in the upper abdomen. The pain does not radiate. The symptoms have no aggravating factors. The symptoms have no relieving factors. The symptoms have been associated with diarr hea and nausea, while the symptoms have not been associated with constipation.Encounter Diagnosis: Abdominal Pain,RUQ(789.01), Epigastric Pain (789.06) [facility] Office Visit On: 22-Mar-2015 8:03 Encounter Reason: Follow up for chronic medical issues - The patient feels well with minor complaints, has good energy level and is sleeping well. Patient has been compliant with instructions. Current medication use: no End: 22-Mar-2015 10:35 side effects and compliant with dosing regimen. Patient sleeps 7 hours per night. Nutrition: balanced diet and supplemental vitamins. The medical issues the patient is following up for include All ident ified problems below, blood sugar issues, high blood pressure and high cholesterol. fasting blood sugars : and weight :.Encounter Diagnosis: Hypercholesteremia (272.0), HYPERTENSION, BENIGN ESSENTIAL (401.1), Diabetes type II,controlled no comp (250.00), Unspecified vitamin D deficiency (268.9), Psoriatic arthropathy (696.0), Fatty Liver (571.8), Breast cancer screening [facility] Office Visit On: 06-Jan-2015 8:30 Encounter Diagnosis: Diabetes type II,controlled no comp (250.00), HYPERTENSION, BENIGN ESSENTIAL (401.1), Hypercholesteremia (272.0), Fatty Liver (571.8) End: 09-Jan-2015 17:59 [facility] Office Visit On: 23-Dec-2014 8:01 Encounter Reason: Follow up tests - Date: (12/20/14 labs)., [ADDITIONAL REASON] Follow up for chronic medical issues - The patient feels well with minor complai End: 23-Dec-2014 12:59 nts, has decreased energy level and is sleeping poorly. Patient has been compliant with instructions. Current medication use: no side effects and compliant with dosing regimen. Patient sleeps 7 hours pe r night. Nutrition: balanced diet and supplemental vitamins. The medical issues the patient is following up for include All identified problems below, blood sugar issues, high blood pressure and high ch olesterol. blood pressure range :, fasting blood sugars : and weight :. Encounter Diagnosis: Diabetes type II,controlled no comp (250.00), Psoriatic arthropathy (696.0), Unspecified vitamin D deficiency (268.9), Hypercholesteremia (272.0), HYPERTENSION, BENIGN ESSENTIAL (401.1) [facility] Office Visit On: 10-Oct-2014 13:15 Encounter Reason: Bloody stools - The onset of the bloody stools has been sudden and they have been occurring in an intermittent pattern for 2 days. The course has been recurrent. The bloody stools are characterized as End: 10-Oct-2014 14:57 blood mixed in stools (around) and bloody toilet bowl water. The symptoms have been associated with abdominal pain (cramps), change in bowel habits and diarrhea (lose), while the symptoms have not been associated with constipation. Encounter Diagnosis: Rectal bleed, Abdominal pain [facility] Office Visit On: 22-Sep-2014 7:16 Encounter Reason: Follow up for chronic medical issues - The patient feels well with minor complaints, has decreased energy level (I feel a little more tired) and is sleeping well. Patient has been compliant with instruc End: 22-Sep-2014 8:17 tions. Current medication use: no side effects and compliant with dosing regimen. Patient sleeps 7 hours per night. Nutrition: balanced diet and supplemental vitamins. The medical issues the patient is following up for include All identified problems below, blood sugar issues and high blood pressure. blood pressure range :, fasting blood sugars : and weight :.Encounter Diagnosis: Unspecified vitamin D deficiency (268.9), HYPERTENSION, BENIGN ESSENTIAL (401.1), Psoriatic arthropathy (696.0), Hypercholesteremia (272.0), Diabetes type II,controlled no comp (250.00) [facility] Visit On: 20-Jul-2014 7:40 Encounter Reason: Follow up for diabetes/glucose intolerance - The patient feels well with no complaints. Patient has been compliant (on std process products) with instructions. Nutrition: balanced diet.Encounter Diagnosis: End: 20-Jul-2014 15:01 HYPERTENSION, BENIGN ESSENTIAL (401.1), Diabetes type II,uncontrolled, no comp (250.02) [facility] Visit On: 15-Jul-2014 13:39 Encounter Reason: Cough - The onset of the cough has been 3 days ago. The cough is characterized as productive of mucoid sputum (yellow in small amounts). The amount of sputum produced is scanty. The cough occurs all th End: 18-Jul-2014 9:23 e time. The symptoms are aggravated by supine posture. The symptoms have been associated with fever (Not today, but had one earlier in the week), headache, hoarseness, runny nose and sore throat. the color of the sputum is yellowish. Encounter Diagnosis: BRONCHITIS, NOT SPECIFIED ACUTE OR CHRONIC (490.) [facility] Office Visit On: 13-Jun-2014 14:28 Encounter Diagnosis: Psoriatic arthropathy (696.0), HYPERTENSION, BENIGN ESSENTIAL (401.1), Fatty Liver (571.8), Other Abnormal Glucose, Pre-diabetes (790.29), Diabetes type II,uncontrolled, no comp (250.02) End: 13-Jun-2014 15:47 [facility] Visit On: 01-Jun-2014 7:59 Encounter Diagnosis: Diabetes type II,uncontrolled, no comp (250.02), Fatty Liver (571.8), HYPERTENSION, BENIGN ESSENTIAL (401.1), Psoriatic arthropathy (696.0) End: 01-Jun-2014 8:53 [facility] Visit On: 19-May-2014 7:30 Encounter Reason: Follow up for chronic medical issues - The patient feels well with minor complaints, has good energy level and is sleeping poorly. Patient has been compliant with instructions. Current medication use: n End: 20-May-2014 7:11 o side effects and compliant with dosing regimen. Patient sleeps 6 hours per night. Nutrition: balanced diet and supplemental vitamins. The medical issues the patient is following up for include All elia ntified problems below, blood sugar issues, gastric reflux and high blood pressure. fasting blood sugars : and weight :., [ADDITIONAL REASON] Follow up tests - Date: (05/13/14 labs). Encounter Diagnosis: HYPERTENSION, BENIGN ESSENTIAL (401.1), Diabetes type II,uncontrolled, no comp (250.02), Hypercholesteremia (272.0), Fatty Liver (571.8), Unspecified vitamin D deficiency (268.9), Other Abnormal Glucose, Pre-diabetes (790.29), ALLERGIC RHINITIS DUE TO OTHER ALLERGEN (477.8), Need for prophylactic vaccination and inoculation against influenza (V04.81) [facility] Visit On: 28-Jan-2014 7:51 Encounter Reason: Follow up tests - Date: (01/07/14 labs).Encounter Diagnosis: GERD (530.81), Unspecified vitamin D deficiency (268.9), Fatty Liver (571.8), Hypercholesteremia (272.0), Nausea (787.02) End: 28-Jan-2014 8:29 [facility] Phone Encounter On: 31-Dec-2013 16:23 Encounter Diagnosis: GERD (530.81) End: 31-Dec-2013 16:24 [facility] Office Visit On: 31-Dec-2013 8:54 Encounter Reason: Follow up for chronic medical issues - The patient does not feel well (past 6 weeks weeks she has been off and had differnt things go wrong), has decreased energy level and is sleeping well. Patient has End: 31-Dec-2013 15:41 been compliant with instructions. Current medication use: no side effects and compliant with dosing regimen. Patient sleeps 6 hours per night. Nutrition: poor nutrition. The medical issues the patient is following up for include All identified problems below, blood sugar issues, gastric reflux, high blood pressure and high cholesterol. weight :.Encounter Diagnosis: Diabetes type II,uncontrolled, no comp (250.02), HYPERTENSION, BENIGN ESSENTIAL (401.1), Hypercholesteremia (272.0), Unspecified vitamin D deficiency (268.9), Fatty Liver (571.8), Voice disorder, Dyshaghia (787.2) [facility] Visit On: 16-Sep-2013 8:21 Encounter Reason: Follow up tests - Date: (09/07/13 labs)., [ADDITIONAL REASON] Follow up for chronic medical issues - The patient feels well with minor complai End: 16-Sep-2013 9:09 nts, has good energy level and is sleeping well. Patient has been compliant with instructions. Current medication use: no side effects and compliant with dosing regimen. Patient sleeps 7 hours per night . Nutrition: balanced diet and supplemental vitamins. The medical issues the patient is following up for include All identified problems below, blood sugar issues, high blood pressure and high cholesterol. fasting blood sugars : and weight :. Encounter Diagnosis: Diabetes type II,uncontrolled, no comp (250.02), Hypercholesteremia (272.0), HYPERTENSION, BENIGN ESSENTIAL (401.1), Fatty Liver (571.8), Depression (311.), Unspecified vitamin D deficiency (268.9), Body mass index (BMI) of 30.0-30.9 in adult [facility] Historical Summary On: 07-Sep-2013 9:33 Encounter Diagnosis: Hypercholesteremia (272.0) End: 07-Sep-2013 9:37 [facility] Office Visit On: 18-Jun-2013 14:47 Encounter Reason: Follow up tests - Date: (06/14/13 labs). Note for Discuss procedure results: to rev all my lab resultsEncounter Diagnosis: Fatty Liver (571.8), Hypercholesteremia (272.0), Abnormal blood chemistry (790.6) End: 18-Jun-2013 15:30 [facility] Visit On: 14-Jun-2013 9:08 Encounter Reason: Follow up for chronic medical issues - The patient feels well with minor complaints, has good energy level and is sleeping well. Patient has been compliant with instructions. Current medication use: no End: 14-Jun-2013 13:23 side effects and compliant with dosing regimen. Patient sleeps 7 hours per night. Nutrition: balanced diet and supplemental vitamins. The medical issues the patient is following up for include All ident ified problems below, blood sugar issues, high blood pressure and high cholesterol. blood pressure range :, fasting blood sugars : and weight :.Encounter Diagnosis: Diabetes type II,uncontrolled, no comp (250.02), HYPERTENSION, BENIGN ESSENTIAL (401.1), Hypercholesteremia (272.0), Depression (311.), Fatty Liver (571.8), Psoriatic arthropathy (696.0) [facility] Visit On: 10-May-2013 8:02 Encounter Reason: Well Women Exam - The patient feels well with minor complaints, has decreased energy level and is sleeping poorly. Pap smear: date of last pap: (07/21). Contraceptive history: The patient is not using a End: 10-May-2013 9:14 ny method of contraception at this time. Patient does not exercise. The patient reports that she performs monthly self breast exam. Calcium intake includes 1200 mg daily supplment. The patient denies th e use of oral contraceptives or hormone replacement therapy. Menstruation: Last menstrual period date: (8 years).Encounter Diagnosis: Well Woman Exam (V72.31) (Pap,Mammo,Routine Female) (Renamed from Well Woman V72.31 (p,m)) [facility] Visit On: 12-Jan-2013 11:05 Encounter Reason: Sinusitis/ - The duration of the symptoms are 3 days The course has been worsening. The sinusitis/ has no relieving factors. Associated features include The symptoms have been associated with cough, adolph End: 12-Jan-2013 11:20 al discharge/stuffy nose, sinus pain and swollen lymph glands. No previous evaluations were reported.Encounter Diagnosis: Sinusitis,acute (461.9), ALLERGIC RHINITIS DUE TO OTHER ALLERGEN (477.8) [facility] Office Visit On: 25-Sep-2012 9:01 Encounter Reason: Follow up acute care visit - The patient improving.Encounter Diagnosis: Body aches (780.96), Diarrhea (787.91), Cough (786.2) End: 25-Sep-2012 9:33 [facility] Visit On: 24-Sep-2012 15:11 Encounter Reason: Diarrhea - The onset of the diarrhea has been sudden and has been occurring for 1 day. The course has been constant. The stools are watery. The volume of the stools is normal. The symptoms have been ass End: 24-Sep-2012 15:26 ociated with abdominal pain, nausea and weakness, while the symptoms have not been associated with fever, vomiting or recent antibiotics.Encounter Diagnosis: Diarrhea (787.91), Body aches (780.96), Cough (786.2) [facility] Annotation/Addendum On: 14-Sep-2012 16:56 Encounter Diagnosis: Unspecified Diagnosis End: 14-Sep-2012 16:58 [facility] Office Visit On: 14-Sep-2012 16:33 Encounter Reason: Sinusitis/ - The duration of the symptoms are 1 week The course has been increasing. The sinusitis/ has no relieving factors. Associated features include The symptoms have been associated with cough, na End: 14-Sep-2012 16:56 gerda discharge/stuffy nose and sinus pain, while the symptoms have not been associated with sore throat, swollen lymph glands or teeth pain.Encounter Diagnosis: Sinusitis,acute (461.9) [facility] Visit On: 22-Jun-2012 9:08 Encounter Reason: Follow up ER - Reason for hospitalization abdominal pain. Patient has been compliant with instructions. Current medication use: no side effects and compliant with dosing regimen. The patient feels well End: 22-Jun-2012 9:29 with minor complaints, has good energy level and is sleeping well. Patient sleeps 6 hours per night. Nutrition: balanced diet. Note for Follow up ER: I thought it was ??gallbladder attack but they [place] everything looked ok-- ultra sound ok and labs normal -- also did ekg to look at heart but that was ok too Encounter Diagnosis: Abdominal Pain,RUQ(789.01), Epigastric Pain (789.06) [facility] Visit On: 18-May-2012 14:14 Encounter Reason: Upper Respiratory Infection (URI) - The last clinic visit was 5 day(s) ago. No changes in management were made at the last visit. Symptoms include nasal congestion, runny nose, sore throat, hoarseness, End: 18-May-2012 15:00 dry cough and general malaise, while symptoms do not include sneezing, scratchy throat, productive cough, wheezing, fever or chills. Onset was sudden. The symptoms occur constantly. The patient describe s this as moderate in severity and unchanged. Symptoms are exacerbated by lying down, while symptoms are not exacerbated by activity, smoking or cold air. Symptoms are not relieved by cool environment, cough suppressants, inhaler use or lying down. Associated symptoms include ear plugging, headache and facial pressure, while associated symptoms do not include ear pain, shortness of breath, clear sputu m, colored sputum, nausea, vomiting or diarrhea. Current treatment includes non- prescription cold medication.Encounter Diagnosis: Sinusitis,acute (461.9) [facility] Visit On: 20-Feb-2012 8:08 Encounter Reason: Follow up tests - Date: (02/14/12 labs)., [ADDITIONAL REASON] Follow up for chronic medical issues - The patient feels well with minor complai End: 20-Feb-2012 8:47 nts, has good energy level and is sleeping poorly. Patient has been compliant with instructions. Current medication use: no side effects and compliant with dosing regimen. Patient sleeps 6 hours per nig ht. Nutrition: balanced diet and supplemental vitamins. The medical issues the patient is following up for include All identified problems below, blood sugar issues, high blood pressure, high cholesterol and other. fasting blood sugars :. Encounter Diagnosis: Diabetes type II,uncontrolled, no comp (250.02), Unspecified vitamin D deficiency (268.9), GERD (530.81), Hypercholesteremia (272.0), HYPERTENSION, BENIGN ESSENTIAL (401.1) [facility] Office Visit On: 20-Nov-2011 15:47 Encounter Reason: Follow up for chronic medical issues - The patient does not feel well. Patient has been compliant with instructions. Current medication use: no side effects and compliant with dosing regimen. Patient sl End: 20-Nov-2011 16:51 eeps 7 hours per night. Nutrition: inappropriate diet and supplemental vitamins. The medical issues the patient is following up for include All identified problems below, depression, gastric reflux, high blood pressure and high cholesterol. Encounter Diagnosis: HYPERTENSION, BENIGN ESSENTIAL (401.1), Hypercholesteremia (272.0), GERD (530.81), Unspecified vitamin D deficiency (268.9), Sinus congestion (478.19), Diabetes type II,uncontrolled, no comp (250.02) [facility] Office Visit On: 30-Oct-2011 8:59 Encounter Reason: Rash - The last clinic visit was 1 week(s) ago. No changes in management were made at the last visit. Symptoms include skin dryness (started on the hands ansd going up the arms and now neck and chest ar End: 30-Oct-2011 9:24 ea), pruritus and skin redness. The skin rash is located on the right arm. Onset was sudden week(s) ago. There is no known event that preceded symptom onset. The symptoms occur constantly. The patient d escribes this as moderate in severity and worsening. Associated symptoms do not include fever.Encounter Diagnosis: Rash (782.1) [facility] Phone Encounter On: 09-Aug-2011 10:50 Encounter Diagnosis: Other Abnormal Glucose, Pre-diabetes (790.29) End: 09-Aug-2011 10:55 [facility] Office Visit On: 08-Aug-2011 8:47 Encounter Reason: Follow up for chronic medical issues - The patient feels well with minor complaints, has good energy level and is sleeping well. Patient has been compliant with instructions. Current medication use: exp End: 08-Aug-2011 9:25 eriencing side effects (dizziness with bp meds), compliant with dosing regimen and considered effective by patient. Patient sleeps 6 hours per night. Impact of disease: emotional impact-mild. Nutrition: balanced diet and supplemental vitamins. The medical issues the patient is following up for include All identified problems below, blood sugar issues, high blood pressure and high cholesterol. blood pressure range : (120's/80's). Encounter Diagnosis: Other Abnormal Glucose, Pre-diabetes (790.29), HYPERTENSION, BENIGN ESSENTIAL (401.1), GERD (530.81), Hypercholesteremia (272.0), Abnormal blood chemistry (790.6) [facility] Office Visit On: 24-Jul-2011 13:56 Encounter Reason: high blood pressure - The patient has experienced high blood pressure for months. The symptoms have been associated with obesity, while the symptoms have not been associated with anxiety, sleep apnea s End: 24-Jul-2011 14:52 ymptoms, use of nasal decongestants or use of oral contraceptives. blood pressure range : (142/90?)., [ADDITIONAL REASON] Sinusitis - The last clinic visit was 1 day(s) ago. No changes in management wer e made at the last visit. Symptoms include forehead pain and forehead pressure. Onset was sudden. The symptoms occur constantly. The patient describes this as mild and unchanged. Encounter Diagnosis: Sinus congestion (478.19), HYPERTENSION, BENIGN ESSENTIAL (401.1), Sinusitis,acute (461.9), Fatty Liver (571.8), Other Abnormal Glucose, Pre-diabetes (790.29) [facility] Office Visit On: 21-Sep-2010 8:35 Encounter Reason: Follow up for chronic medical issues - The patient feels well with minor complaints, has good energy level and is sleeping well. Patient has been compliant with instructions. Current medication use: no End: 21-Sep-2010 11:14 side effects and compliant with dosing regimen. Patient sleeps 6 hours per night. Nutrition: balanced diet and supplemental vitamins. The medical issues the patient is following up for include All ident ified problems below, blood sugar issues, high blood pressure and high cholesterol.Encounter Diagnosis: Other Abnormal Glucose, Pre-diabetes (790.29), Depression (311.), GERD (530.81), Psoriatic arthropathy (696.0), Elevated Blood Pressure without diagnosis of Hypertension (796.2), Sinus congestion (478.19), Chronic pharyngitis (472.1) [facility] Office Visit On: 14-Aug-2010 8:43 Encounter Reason: Sore throat - The onset of the sore throat has been sudden and has been occurring in a persistent pattern for 1 day. The course has been worsening. The symptoms have been associated with foreign body se End: 14-Aug-2010 9:04 nsation in throat, difficulty in swallowing and swelling of neck glands, while the symptoms have not been associated with cough or recent contact with a person with sore throat.Encounter Diagnosis: ACUTE PHARYNGITIS (462.), Viral infection, unspecified (079.99) [facility] Office Visit On: 28-May-2010 9:07 Encounter Reason: Follow up for chronic medical issues - The patient feels well with minor complaints, has good energy level and is sleeping well. Patient has been compliant with instructions. Current medication use: no End: 28-May-2010 10:11 side effects and compliant with dosing regimen. Patient sleeps 6 hours per night. Nutrition: balanced diet and supplemental vitamins. The medical issues the patient is following up for include All ident ified problems below, blood sugar issues, high blood pressure and high cholesterol. fasting blood sugars : (100 to 120).Encounter Diagnosis: Other Abnormal Glucose, Pre-diabetes (790.29), GERD (530.81), Depression (311.), Blood in stool (578.1), Psoriasis (696.1), Need for prophylactic vaccination and inoculation against influenza (V04.81) [facility] Office Visit On: 14-May-2010 15:46 Encounter Reason: Sinusitis/ - The duration of the symptoms are 3 days The course has been worsening. The sinusitis/ has no relieving factors. Associated features include The symptoms have been associated with cough ,adolph End: 14-May-2010 16:08 al discharge/stuffy nose (yellow/green) and sinus pain, while the symptoms have not been associated with ear pain ,sore throat or teeth pain. No previous evaluations were reported. none reported. Encounter Diagnosis: Sinusitis,acute (461.9), Wheezing (786.07), Cough (786.2) [facility] Office Visit On: 23-Feb-2010 15:09 Encounter Reason: Follow up, Diagnostic Procedure Results - Date: (dexa scan 02-01-10). Encounter Diagnosis: Psoriatic arthropathy (696.0), Psoriasis (696.1), Pain in joint, multiple sites (719.49) End: 23-Feb-2010 16:08 [facility] Office Visit On: 18-Jan-2010 7:29 Encounter Reason: Follow up acute care visit - The patient feels the same. Patient has been compliant with instructions. Current medication use: experiencing side effects (says that the Metformin is causing nausea). Marco End: 18-Jan-2010 8:07 ent sleeps 7 hours per night. Nutrition: balanced diet and supplemental vitamins. The medical issues the patient is following up for include other (left knee pain). , [ADDITIONAL REASON] Follow up, Laboratory Test Results - Lab results: other (UA, CMP, CRP, RA, CBC, ESR). Date: (01/03/10). Current symptoms/reason for visit include/s Follow up visit with no current symptoms. Encounter Diagnosis: Unspecified vitamin D deficiency (268.9), Psoriasis (696.1), Psoriatic arthropathy (696.0), Abnormal blood chemistry (790.6) [facility] Visit On: 27-Nov-2009 12:21 Encounter Reason: Follow up for chronic medical issues - The patient feels well with minor complaints ,has good energy level and is sleeping well. Patient has been compliant with instructions. Current medication use: no End: 27-Nov-2009 14:46 side effects ,compliant with dosing regimen and considered effective by patient. Patient sleeps 7 hours per night. Nutrition: balanced diet and supplemental vitamins. The medical issues the patient is f ollowing up for include All identified problems below ,blood sugar issues (Abn GTT) ,depression ,gastric reflux and other (Vit D deficency, IBS). Encounter Diagnosis: Pain in joint, multiple sites (719.49), Psoriasis (696.1), Other Abnormal Glucose, Pre-diabetes (790.29), Knee pain (719.46) [facility] Visit On: 21-Sep-2009 8:02 Encounter Reason: Sinusitis/ - The duration of the symptoms are 1 day The course has been worsening. The sinusitis/ has no relieving factors. Associated features include The symptoms have been associated with cough ,ear End: 21-Sep-2009 14:34 pain ,nasal discharge/stuffy nose ,sinus pain and sore throat. No previous evaluations were reported. Encounter Diagnosis: Sinusitis,acute (461.9), Elevated Blood Pressure without diagnosis of Hypertension (796.2) [facility] Visit On: 28-Aug-2009 16:36 Encounter Reason: Follow up for chronic medical issues - The patient feels well with no complaints ,has good energy level and is sleeping well. Patient has been compliant with instructions. Current medication use: experi End: 28-Aug-2009 17:08 encing side effects (occasional nausea thinks r/t metformin- starting to resolve) ,compliant with dosing regimen and considered effective by patient. Patient sleeps 6 hours per night. Impact of disease: no overall impact. Nutrition: balanced diet. The medical issues the patient is following up for include All identified problems below ,blood sugar issues (prediabetes) ,depression ,gastric reflux and o ther (dysphagia). fasting blood sugars : (97-103). , [ADDITIONAL REASON] Follow up, Laboratory Test Results - Date: (08/08/09). There is a family history of breast cancer (mother, great aunts) ,cardiovascular disease (father) and myocardial infarction before age 55 (father) , while there is no family history of cystic fibrosis ,Down's syndrome or mental retardation. Past medical history includes emotional problems and gastroesophageal reflux disease. Encounter Diagnosis: Other Abnormal Glucose, Pre-diabetes (790.29) [facility] Visit On: 08-Jun-2009 14:15 Encounter Reason: Follow up for diabetes/glucose intolerance - The patient feels well with no complaints ,has good energy level and is sleeping well (6-7 hours nightly). Patient has been compliant with instructions. Nutr End: 08-Jun-2009 16:00 ition: balanced diet. fasting blood sugars : (103) and evening sugars : (before meal high 97-99). , [ADDITIONAL REASON] Follow up, Laboratory Test Results - Date: (see face sheet 05/25/09). Encounter Diagnosis: Other Abnormal Glucose, Pre-diabetes (790.29), Elevated LFT (790.6) [facility] Visit On: 23-May-2009 8:44 Encounter Diagnosis: Unspecified Diagnosis End: 24-May-2009 8:10 [facility] Visit On: 03-May-2009 11:04 Encounter Reason: Follow up, Laboratory Test Results - Lab results: other (hepatic and 2 hour GTT). Date: (04/18/09). Encounter Diagnosis: Other Abnormal Glucose, Pre-diabetes (790.29), Elevated LFT (790.6) End: 03-May-2009 12:02 [facility] Visit On: 18-Apr-2009 15:04 Encounter Reason: Follow up for chronic medical issues - The patient feels well with minor complaints ,has good energy level and is sleeping poorly (thinks has a sinus infection ). Patient has been compliant with instruc End: 18-Apr-2009 16:59 tions. Current medication use: no side effects ,experiencing side effects ,has decreased dose ,has increased dose ,compliant with dosing regimen ,non-compliant with dosing regimen ,considered effective by patient and not considered effective by patient. Patient sleeps 7 hours per night. Impact of disease: emotional impact-mild. Nutrition: balanced diet. The medical issues the patient is following up f or include All identified problems below ,depression and other (migraine). Encounter Diagnosis: Other Abnormal Glucose, Pre-diabetes (790.29), Abnormal blood chemistry (790.6), Unspecified vitamin D deficiency (268.9), Contact dermatitis and other eczema due to plants (except food) (692.6), Psoriasis (696.1), Pain in joint, multiple sites (719.49) [facility] Visit On: 04-Jan-2009 9:26 Encounter Reason: Follow up acute care visit - The patient feeling better since last seen. Patient has been compliant with instructions. Current medication use: compliant with dosing regimen. Patient sleeps 8 hours per n End: 04-Jan-2009 9:56 ight. Impact of disease: no overall impact. Nutrition: balanced diet and supplemental vitamins. The medical issues the patient is following up for include All identified problems below. Encounter Diagnosis: Unspecified vitamin D deficiency (268.9), Diarrhea (787.91), Candidiasis of mouth (112.0) [facility] Visit On: 28-Dec-2008 10:54 Encounter Reason: Diarrhea - The onset of the diarrhea has been acute and has been occurring in an intermittent pattern for 1 days. The course has been recurrent. The stools are watery. The volume of the stools is small. Encounter Diagnosis: End: 28-Dec-2008 12:42 Diarrhea (787.91), Dehydration(276.51), Nausea/Vomiting (787.01), Candidiasis of mouth (112.0) [facility] Visit On: 05-Apr-2008 11:22 Encounter Reason: Diarrhea - The onset of the diarrhea has been acute and has been occurring in a persistent pattern for 1 weeks. The course has been recurrent. The stools are watery ,foul smelling and floating on water. End: 05-Apr-2008 12:25 The volume of the stools is small. The symptoms have been associated with abdominal pain ,nausea (yesterday and today per pt.) ,past history of abdominal surgery (1977-appendectomy) and start of a new medication (started a psoriasis medication 3 weeks ago), while the symptoms have not been associated with anxiety ,diabetes mellitus ,constipation ,fever ,heat intolerance ,joint pains ,nocturnal bowel movements ,[place] ,similar illness in other people eating the same meal ,skin lesions ,tenesmus ,upper respiratory infection symptoms ,vomiting ,weakness ,weight loss ,diabetic /low ca rb snacks ,drink well water ,milk intake or recent antibiotics. Encounter Diagnosis: Diarrhea (787.91), Abdominal Pain,General (789.07), Nausea (787.02) [facility] Visit On: 14-Jan-2008 10:16 Encounter Reason: Diarrhea - The onset of the diarrhea has been sudden and has been occurring in an intermittent pattern for 1 weeks. The course has been constant. The quality of stools is of normal consistency. The volu End: 14-Jan-2008 12:09 me of the stools is normal. The symptoms have been associated with nausea and vomiting, while the symptoms have not been associated with recent antibiotics. Encounter Diagnosis: Abdominal Pain,General (789.07), Gastroenteritis (558.9), Dehydration(276.51) [facility] Historical Summary On: 14-Jan-2008 8:45 [facility] End: 14-Jan-2008 9:00 [facility]
--- OUTSIDE RECORDS SUMMARY | 2018-11-03 10:53 | XMS RPT_ITS | Continuity of Care Document ---
:1960 Author Organization [facility] Address [facility] [address] [place] [address] Phone Care Team Providers Name Role Phone Chanel Varma DO Unavailable Alexis RDZ, Joey Gallegos Unavailable Physical Therapy, [facility] Unavailable Edin Cotter MD Unavailable Dr. Herve Plaza Unavailable JUANA Gomez Unavailable Unavailable Unavailable Unavailable Problems Name Dates Details Abdominal pain, acute, right upper quadrant (R10.11, 789.01) Status: Active ALLERGIC RHINITIS DUE TO OTHER ALLERGEN (J30.89, 477.8) Status: Active Appendectomy Comments: 1975 Status: Active BMI 27.0-27.9,adult (Z68.27, V85.23) Status: Active BMI 28.0-28.9,adult (Z68.28, V85.24) Status: Active BMI 29.0-29.9,adult (Z68.29, V85.25) Status: Active Body mass index (BMI) of 30.0-30.9 in adult (Z68.30, V85.30) Status: Active Breast cancer screening (Z12.39, V76.10) [...] Active Dysphagia (R13.10, 787.20) Status: Active Elevated LFTs (R94.5, 790.6) Comments: on psoriasis meds -- improved and vallenke watching Status: Active Elevated serum globulin level (R77.1, 790.99) Status: Active Encounter for gynecological examination without abnormal finding (Z01.419, V72.31) Comments: 10/16n hpv neg adn no chg in sexual [...] (Z23, V06.6) Status: Active Post-menopausal (Z78.0, V49.81) Status: Active Post-nasal drip (R09.82, 784.91) Comments: using antihistamine prn Status: Active Pregnancies () Comments: 0 Status: Active Psoriasis (L40.9, 696.1) Status: Active Psoriatic arthropathy (L40.50, 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.0) Status: Active Screening for HPV (human papillomavirus) (Renamed from Encounter for screening for human papillomavirus (HPV)) (Z11.51, V73.81) Status: Active Sinusitis, acute (J01.90, 461.9) Status: [...] days Quantity: 12 {Tablet} Refills: 3 Ordered:04-Jun-2017 Evertonmerissa ANDRADE Spring Clemons Start : 04-Jun-2017 Active Alendronate Sodium 70 MG Oral Tablet 1 (one) Tablet q weekly for 90 days Quantity: 3 {Tablet} Refills: 3 Ordered:04-Jun-2017 Maxime ANDRADE Spring Clemons Start : 04-Jun-2017 Active Amaryl 1 MG Oral Tablet 1 (one) Tablet bid for 0 days Quantity: 60 {Tablet} Refills: 3 Ordered:29-Jul-2018 Alena Varma DO, DO, Kathleen Start : 29-Jul-2018 Active Atenolol 25 MG Oral Tablet 1/2 [...] QD for 0 days Refills: 0 Ordered:08-Jun-2009 West, VeronikaActive NASONEX, 50MCG/ACT (Nasal Suspension) 2 (two) Suspension sprays each nostril daily for 0 days Quantity: 1 {Box} Refills: 3 Ordered:19-May-2014 Alena Varma DO, DO, Kathleen Start : 19-May-2014 Active Olux 0.05 % External Foam 1 (one) Foam qd prn per derm for 0 days Quantity: 1 {Each} Refills: 3 Ordered:02-Aug-2016 Alena Varma DO, DO, Kathleen Start : 02-Aug-2016 Active Pravastatin Sodium 20 MG Oral Tablet 1 (one) Tablet qd for 0 days Quantity: 30 {Tablet} Refills: 4 Ordered:29-Jul-2018 Alena Varma DO, DO, Kathleen Start : 29-Jul-2018 Active Ultram 50 MG Oral Tablet 1 [...] days Quantity: 20 {Tablet} Refills: 0 Ordered:01-Nov-2016 SlaJessa may LPN Start : 01-Nov-2016 End : 11-Nov-2016 [...] (50 MG/ML) End : 06-Nov-2016 Discontinued ERGOCALCIFEROL, 07999QGSJ (Oral Capsule) 1 (one) Capsule twice weekly for 0 days Quantity: 8 {Capsule} Refills: 2 Ordered:18-Apr-2009 Maxime ANDRADE Angy Start : 18-Apr-2009 End : 18-Apr-2009 Discontinued [...] days Quantity: 1 {Cream} Refills: 0 Ordered:18-Jan-2010 Mast Renée JARVIS Start : 18-Jan-2010 End : 18-Jan-2010 Discontinued [...] Calles End : 28-Dec-2008 Discontinued VITAMIN D, 24820JXRN (Oral Capsule) 1 Weekly for 0 days Refills: 0 Ordered:28-Jan-2014 Marissa Gomez LPN Start : 28-Jan-2014 End : 23-Dec-2014 Discontinued Comments:This order discontinued per [employer]. Vitamin D3 58795 UNIT Oral Capsule 1 (one) Capsule Capsule [...] (R52, 780.96) Status: Inactive as of 14-Jun-2013 Candidiasis of mouth (B37.0, 112.0) Status: Inactive [...] (R03.0, 796.2) Status: Resolved as of 13-Oct-2017 Flu-like symptoms (R68.89, 780.99) Status: Resolved as [...] as of 08-Dec-2015 Redness of eye, right (H57.89, 379.93) Status: Resolved as of 13-May-2018 Sinus congestion (R09.81, 478.19) Comments: appears viral -- watch -- rto if sx get worse or chg Status: Inactive as of 14-Jun-2013 Sinusitis (J32.9, 473.9) Status: Inactive as of 30-Dec-2016 Procedures Procedure Dates Details PNEUM VAC ADLT/IMUMNOSPR, SBC/INTRM Date: 02-Aug-2016 Completed 02-Aug-2016 (84639) Comments: lot: [id number]: 01/25/2018site/route: L del/IMamt: 0.5mLVIS signed when applicableChelsea, RN ALLERGY cervical spin herniated disc Completed Comments: 11/13/15 - Dr Edin Cotter - [facility] Cholecystectomy Completed Comments: 07/22 Date Value Details 22-Apr-2018 Emergency Department Summary Result: Comments: See Note; NOTES: [facility] Medical Records Department [address] [place] [address] Emergency Department Summary 04/22/18 0136 MR#: [id number] Acct: [id number] Name: LEATHA ABAD Rep #: [id number] : 1960 57 From: Edin Haddad MD [...] Impression: Gastroenteritis This note was generated with [employer] dictation software. It may contai n incorrect [...] PO Q6 #200 ml Referrals: Chanel Varma, [Primary Care Provider] - What to do if you have Problems For any increased pain, shortness of breath, bleeding, nausea or vomiting, chest pain, or any unexpected problems, contact your Primary Care Provider. Call Doctors Registry ([phone]) or report to the closest Emergency Room. Call 911 if necessary. [phone] <Electronically signed by Edin Haddad MD> Date Edin Haddad MD Cosigner Signature (If Indicated): Date _ CC: Chanel Varma 22-Apr-2018 Abdomen/Pelvis W IV Cont ONLY Result: Comments: See Note; NOTES: [facility] Imaging Services [address] [place] [address] Abdomen/Pelvis W IV Cont ONLY MR#: [id number] Acct: [id number] Name: LEATHA ABAD ep #: [id number] : 1960 F 57 From: David Giang MD PCP: Chanel Varma DO Status: REG ER Study: Abdomen/Pelvis W IV Cont ONLY Date of Exam: 04/22/18 Exam# [id number] Ordering Dr: Edin Madrigal MD STUDY: CT [...] CC: Chanel Varma DO; Edin Haddad MD Electrical Hardware Engineer: Signed 21-Feb-2018 Discharge Instruction Result: Comments: See Note; NOTES: [facility] Medical Records Department [address] [place] [address] Discharge Instruction 02/21/18 1944 MR#: [id number] Acct: [id number] Name: LEATHA GALARZA Rep #: [id number] : 1960 57 From: Catalino Murguia MD [...] problems, contact your Primary Care Provider. Call [facility] ([phone]) or report to the closest Emergency Room. Call 911 if necessary. 02/21/18 8873 <Electronically signed by Catalino Murguia MD> Date Catalino Murguia MD Cosigner Signature (If Indicated): Date CC: Chanel Varma DO 21-Feb-2018 Emergency Department Summary Result: Comments: See Note; NOTES: [facility] Medical Records Department [address] [place] [address] Emergency Department Summary 02/21/18 1822 MR#: [id number] Acct: [id number] Name: LEATHA ABAD Rep #: [id number] : 1960 57 From: Catalino Murguia MD [...] ly intact. 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 Bilateral dorsi plantar flexion. Fingertip to [...] Acute hypertension This note was generated with [employer] dictation software. It may contain incorrect words, [...] problems, contact your Primary Care Provider. Call [employer] [facility] ([phone]) or report to the closest Emergency Room. Call 911 if necessary. 02/21/18 5078 <Electronically signed by Catalino Murguia MD> Date Catalino Murguia MD Cosigner Signature (If Indicated): Date CC: Chanel Varma DO 21-Feb-2018 Brain/Head without Contrast Result: Comments: See Note; NOTES: [facility] Imaging Services [address] [place] [address] Brain/Head without Contrast MR#: [id number] Acct: [id number] Name: LEATHA ABDA Rep #: [id number] : 1960 F 57 From: Levi Castellon MD PCP: Chanel Varma DO Status: REG ER Study: Brain/Head without Contrast Date of Exam: 02/21/18 Exam# [id number] Ordering Dr: Catalino Murguia MD STUDY: CT [...] CC: Catalino Murguia MD; Chanel Varma DO Electrical Hardware Engineer: Signed 15-Sep-2017 Knee 4 or More Views Result: Comments: See Note; NOTES: [facility] Imaging Services [address] [place] [address] Knee 4 or More Views MR#: [id number] Acct: [id number] Name: LEATHA ABAD Rep #: [id number] : 1960 F 56 From: Jason Ramirez PCP: Chanel Varma DO Status: REG CLI Study: Knee 4 or More Views Date of Exam: 09/15/17 Exam# [id number] Ordering Dr: Jo Hutchison MD STUDY: X-RAY [...] CC: Chanel Varma DO; Jo Hutchison MD Electrical Hardware Engineer: Signed 15-Sep-2017 Knee 4 or More Views Result: Comments: See Note; NOTES: [facility] Imaging Services [address] [place] [address] Knee 4 or More Views MR#: [id number] Acct: [id number] Name: LEATHA ABAD Rep #: [id number] : 1960 F 56 From: Jason Ramirez PCP: Chanel Varma DO Status: REG CLI Study: Knee 4 or More Views Date of Exam: 09/15/17 Exam# [id number] Ordering Dr: Jo Hutchison MD STUDY: X-RAY - L EFT [...] No fracture or dislocation. Electronically Signed: Jason Ramirez DO at 23:23 EST , Service support [phone], CC: Chanel Varma DO; Jo Hutchison MD Electrical Hardware Engineer: Signed 28-Jul-2017 SCREENING MAMM (CAD), BILAT Result: Comments: See Note; NOTES: [facility] Imaging Services [address] [place] [address] SCREENING MAMM (CAD), BILAT MR#: [id number] Acct: [id number] Name: LEATHA ABAD Rep #: [id number] : 1960 F 56 From: Jordy Masters MD PCP: Chanel Varma DO Status: REG CLI Study: SCREENING MAMM (CAD), BILAT Date of Exam: 07/28/17 Exam# [id number] Ordering Dr: Janel Varma DO MAMMOGRAPHY - [...] 2016 and April 26, 2015. FINDINGS: Breast [place] sition: There are scattered areas of fibroglandular [...] delay biopsy of a clinically suspicious abnormality. [id number] Electronically Signed: Jordy Masters MD 27/07/19 at 8:04 EST Tel [phone], Service support , CC: Chanel Varma DO Electrical Hardware Engineer: Signed 06-Nov-2016 Chest PA and Lateral Result: Comments: See Note; NOTES: [facility] Imaging Services [address] [place] [address] Verdana 4d Chest PA and Lateral MR#: [id number] Acct: [id number] Name: LEATHA ABAD Rep #: [id number] : 1960 F 55 From: Jordy Masters MD PCP: Chanel Varma DO Status: REG CLI Study: Chest PA and Lateral Date of Exam: 11/06/16 Exam# [id number] Ordering Dr: Spring Swartz STUDY: X-RAY CHEST [...] Jordy Masters MD at 15:52 EDT Tel [phone], Service support [phone], Fax CC: Spring Swartz; Chanel Varma DO Electrical Hardware Engineer: Signed 23-Jul-2016 Bilat Scrn Digital AND CAD Result: Comments: See Note; NOTES: [facility] Imaging Services [address] [place] [address] Verdana 4d Bilat Scrn Digital AND CAD MR#: [id number] Acct: [id number] Name: ARELIS ABAD Rep #: [id number] : 1960 F 55 From: Jordy Masters MD PCP: Chanel Varma DO Status: REG CLI Study: Bilat Scrn Digital AND CAD Date of Exam: 07/23/16 Exam# [id number] Ordering Dr: Chanel Palacios DO MAMMOGRAPHY - [...] delay biopsy of a clinically suspicious abnormality. [id number] Electronically Signed: Jordy Masters MD at 10:50 ES T Tel [phone], Service support [phone], CC: Chanel Varma DO Electrical Hardware Engineer: Signed 23-Jul-2016 Dexa Bone Density Study (HP) Result: Comments: See Note; NOTES: [facility] Imaging Services [address] [place] [address] Verdana 4d Dexa Bone Density Study (HP) MR#: [id number] Acct: [id number] Name: BRYANT ABAD Rep #: [id number] : 1960 F 55 From: Jordy Masters MD PCP: Chanel Varma DO Status: [facility] Study: Dexa Bone Density Study (HP) Date of Exam: 07/23/16 Exam# [id number] Ordering Dr : Chanel Varma DO STUDY: [...] Jordy Masters MD at 9:07 EST Tel [phone], Service support [phone], CC: Chanel Varma DO Electrical Hardware Engineer: Signed 21-Apr-2016 Emergency Department Summary Result: Comments: See Note; NOTES: [facility] Medical Records Department [address] [place] [address] Emergency Department Summary MR#: [id number] Acct: [id number] Name: BRYANT ABAD Rep #: [id number] : 1960 55 From: Saira Manriquez MD PCP: Chanel Varma DO Status: DEP ER DATE OF SERVICE: 04/20/2016 CHIEF COMPLAINT: Nausea, vomiting and diarrhea. HISTORY OF PRESENT ILLNESS: The patient is a 55-year-old female who comes in with nausea, vomiting and diarrhea over the past 4 days. She denies blood in her stool or emesis. She has had 2 episodes of vomiting tod and 8 episodes of diarrhea. 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 Saira Manriquez MD T: NTS JOB: [id number] 04/21/16 0003 <Electronically signed b y Saira Manriquez MD> Date Saira Manriquez MD Cosigner Signature (If Indicated): Date CC : Chanel Varma DO Date Dictated: 04/20/162320 Date Transcribed: 04/20/162320 Electrical Hardware Engineer: Signed 20-Apr-2016 Discharge Instruction Result: Comments: See Note; NOTES: [facility] Medical Records Department [address] [place] [address] Discharge Instruction 04/20/162316 MR#: [id number] Acct: [id number] Name: LEATHA CONTEH Rep #: [id number] : 1960 55 From: Saira Manriquez MD [...] problems, contact your doctor. Call Doctors Registry ([phone]) or report to the closest Emergency Room. Call [phone] if necessary. 04/20/162317 <Electronically signed by Saira Manriquez MD> Date Saira Schmitz Signature (If Indicat ed): Date CC: Chanel Varma DO 07-Feb-2016 PT D/C Summary (1) Result: Comments: See Note; NOTES: [facility] [address] [place], [place] [id number] Fax REHABILITATION SE RVICES DISCHARGE SUMMARY MR#: [id number] Acct: [id number] Name: LEATHA ABAD Rep #: [id number] : 1960 55 From: Marina Damico PT, Cert. MDT Referring Dr.: Chanel Varma DO Statu s: REG RCR Insurance: [facility] - PT D/C Summary It has been my pleasure to treat LEATHA ABAD under orders from Chanel Varma, for the diagnosis of CERVICAL HERNIATION, Ariana HURTADO IN, PSORIATIC ARTHROPATHY, S/P CERV FUSION for a total of 21 visit(s). Discharge Date: Please see the following information for a summary of their discharge status. - Subjective Subjective: [facility] IS APOLOGETIC ABOUT ARRIVING LATE. PATIENT REPORTS SHE IS DOING SO MUCH BETTER. 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 Thank you for the referral of this patient. Sincerely, Marina Damico &#6 0;Electronically signed by Cert. KENDELL Arzola PTT> 02/07/16 1031 CC: Chanel Varma DO DOMONIQUE Signed -Dec-2015 Inital Evaluation (1) - PT Result: Comments: See Note; NOTES: [facility] [address] [place] [address]. [address] [place] [address] Fax REHABILITATION SE RVICES INITIAL EVALUATION MR#: [id number] Acct: [id number] Name: LEATHA ABAD Rep #: [id number] : 1960 55 From: Marina Damico PT, CertLottie RDZT Referring DrLottie: Chanel Varma DO Stat us: REG RCR [facility] Date: Patient's Visit Information LEATHA ABAD is [...] [address] EDIN COTTER AT [facility]. 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 SHE REPORTS SHE REGAINED MOST OF HER [...] WITH ERP, LEFT 80 DEG. JOSE LUIS RN HYPERBARIC STRENGTH IS 20 LBS AND PROVOKES PAIN WITH TESTING. JOSE LUIS ELBOW, WRIST, FOREARM A ND HAND AROM IS SYMMETRICAL BUT ARTHRITIC AND THERE IS ERP WITH LEFT ELBOW EXTENSION. MMT NOT PERFORMED DUE TO SHOULDER AROM AND RN HYPERBARIC TESTING PROVOKING PAIN. ANTERIOR CERVICAL INCISION LOOKS [...] to be FAXED BACK to us at [phone] for Medicare purposes. Please let me know if there are questions or concerns regarding this plan of care. Physician Signature: Date: <Electronically signed by Marina Damico PT, Cert. MDT> 12/12/15 1113 CC: Chanel Varma DO DOMONIQUE Signed For Medicare only, by signing this I certify the plan of care. Physicians Signature Date 06-Nov-2015 EKG (47997) Comments: nsr no acute chg Result: [MEASUREMENTS ANALYSIS] Date of Test: 11/06/2015 09:32:00; Heart Rate: 80; [place] Interval: 190; QRS: 88; QT Interval: 354; Corrected QT Interval (QTc): 389; P Wave [place]: 37; QRS Wave [place]: -17; T Wave [place] : 37; Blood Pressure: 122/80 [ECG DIAGNOSTIC STATEMENTS] Date of Test: 11/06/2015 09:32:00; Summary: Sinus Rhythm WITHIN NORMAL LIMITS 18-Aug-2015 Spine Cervical (Routine) Result: Comments: See Note; NOTES: [facility] Imaging Services [address] [place] [address] Verdana 4d Spine Cervical (Routine) MR#: [id number] Acct: [id number] Name: LEATHA ARNETT Rep #: [id number] : 1960 F 54 From: Anand Zepeda MD PCP: Chanel Varma DO Status: REG CLI Study: Spine Cervical (Routine) Date of Exam: 08/18/15 Exam# [id number] Orderi ng Dr: Chanel Varma DO STUDY: [...] lordosis. Normal vertebral bodies and posterior osseous lummi ents. C2-3: Normal endplates. Normal disc height, [...] at 18:12 EST Tel , Service support [phone], CC: Chanel Varma DO Electrical Hardware Engineer: Signed 07-Aug-2015 Cerv Spine 2 or 3 Views Result: Comments: See Note; NOTES: [facility] Imaging Services [address] [place] [address] Verdana 4d Cerv Spine 2 or 3 Views MR#: [id number] Acct: [id number] Name: LEATHA BEE Rep #: [id number] : 1960 F 54 From: Lucho Villatoro MD PCP: Chanel Varma DO Status: REG CLI Study: Cerv Spine 2 or 3 Views Date of Exam: 08/07/15 Exam# [id number] Ordering Dr : Chanel Varma DO STUDY: [...] at 13:38 EST Tel , Service support [phone], RAD/Cerv Spine 2 or 3 Vi ews IMPRESSION: Normal x-ray examination of the visualized cervical spine. Electronically Signed: Terry Villatoro MD at 13:38 EST Tel , Service support [phone], CC: Chanel Varma DO Electrical Hardware Engineer: Signed 25-Jul-2015 NCS and/or EMG Patient Result: Comments: See Note; NOTES: [facility] Pulmonary Services/Neurology [address] [place] [address] NCS and/or EMG Patient MR#: [id number] Acct: [id number] Name: LEATHA CARMONA Rep #: [id number] : 1960 54 From: Ledy Cedillo MD Referring Dr: Spring Swartz Status: REG CLI Ordering Dr: Spring Swartz Date: 07/19/15 Location: [facility] Sex: F C DATE OF SERVICE: The [...] me. Ledy Cedillo MD T: NTS JOB: [id number] 07/25/1515 <Electronically signed by Ledy Cedillo MD> Date Ledy Cedillo MD CC: Spring Swartz; Ledy Cedillo; Chanel Varma DO Date Dictated: 07/19/15 1335 Date Transcribed: 07/19/151334 Electrical Hardware Engineer: Signed 26-Jun-2015 PT D/C Summary Result: Comments: See Note; NOTES: [facility] [address] [place] [address]. [address] [place], [place] [phone] Fax REHABILITATION RVICES DISCHARGE SUMMARY MR#: [id number] Acct: [id number] Name: LEATHA ABAD Rep #: [id number] : 1960 54 From: Marina Damico Referring DrLottie: Spring Swartz Status: REG RCR Eval Date: [...] HAS AN EMG SCHEDULED July THEN SHE'LL FOLLMay Pickard BACK UP WITH HER FOR THE RESULTS. [...] arnold feel free to call me at [phone]. Thank you for the referral of this patient. Sincerely, Marina Damico <Electronically signed by Marina Damico > 06/26/15 2463 CC: Spring Swartz; Chanel Varma DO DOMONIQUE Signed -May-2015 Inital Evaluation - PT Result: Comments: See Note; NOTES: [facility] [address] [place] [address]. [address] [place] [address] Fax REHABILITATION RVICES INITIAL EVALUATION MR#: [id number] Acct: [id number] Name: LEATHA ABAD Rep #: [id number] : 1960 54 From: Marina Damico Referring DrLottie: Spring Swartz Status: REG RCR Insurance : [facility] Date: Patient's Visit Information LEATHA ABAD is [...] E HELPING. PATIENT DENIES NECK PAIN. 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 Please let me know if there are questions or concerns regarding this plan of care. Physician Signature: ____Date: <Electronically signed by Marina Damico > 06/07/15 2179 CC: Spring Swartz; Chanel Varma DO DOMONIQUE Signed For Medicare only, by signing this I certify the plan of care. Physicians Signature Date 24-May-2015 Forearm 2 Views Result: Comments: See Note; NOTES: [facility] Imaging Services [address] [place] [address] Radiology Report MR#: [id number] Acct: [id number] Name: LEATHA ABAD Shanika p #: [id number] : 1960 F 54 From: Lucho Morales MD PCP: Chanel Varma DO Status: REG CLI Study: Forearm 2 Views Date of Exam: 05/24/15 Exam# [id number] Ordering Dr: Spring Swartz STUDY: X-RAY - [...] MD at 16:22 EDT , Service support , RAD/Forearm 2 Views IMPRESSION: Normal x-ray examination of the radius and ulna. Electronically Signed: Terry Morales MD at 16:22 EDT , Service support [phone], CC: Spring Swartz; Chanel Varma DO Electrical Hardware Engineer: Signed 24-May-2015 Shoulder min 2 Views Result: Comments: See Note; NOTES: [facility] Imaging Services [address] [place] [address] Radiology Report MR#: [id number] Acct: [id number] Name: LEATHA ABAD Re p #: [id number] : 1960 F 54 From: Lucho Morales MD PCP: Chanel Varma DO Status: REG CLI Study: Shoulder min 2 Views Date of Exam: 05/24/15 Exam# [id number] Ordering Dr: Spring Swartz UDY: X-RAY - [...] MD at 16:24 EDT , Service support [phone], RAD/Shoulder min 2 Views IMPRESSION: Findings of calcific tendinitis of the rotator cuff. Electronically Signed: Terry Morales MD at 16:24 EDT , Ser vice support [phone], CC: Spring Swartz; Chanel Varma DO Electrical Hardware Engineer: Signed 26-Apr-2015 Bilat Scrn Digital AND CAD Result: Comments: See Note; NOTES: [facility] Imaging Services [address] [place] [address] Breast Imaging Report MR#: [id number] Acct: [id number] Name: LEATHA ABAD p #: [id number] : 1960 F 54 From: Jordy Masters MD PCP: Chanel Varma DO Status: REG CLI Study: Bilat Scrn Digital AND CAD Date of Exam: 04/26/15 Exam# [id number] Ordering Dr: Chanel Varma DO MAMMOGRAPHY - [...] Jordy Masters MD at 9:11 EDT Tel [phone], Service support [phone], CC: Chanel Varma DO Electrical Hardware Engineer: Signed 07-Apr-2015 Gallbladder Result: Comments: See Note; NOTES: [facility] Imaging Services [address] [place] [address] Ultrasound Report MR#: [id number] Acct: [id number] Name: LEATHA ABAD Rep #: [id number] : 1960 F 54 From: Jordy Masters MD PCP: Chanel Varma DO Status: REG CLI Study: Gallbladder Date of Exam: 04/07/15 Exam# [id number] Ordering Dr: Chanel Varma DO UDY: ABDOMINAL [...] Jordy Masters MD at 13:10 EDT Tel [phone], Service support [phone], CC: Chanel Varma DO Electrical Hardware Engineer: Signed 01-Mar-2015 Emergency Department Summary Result: Comments: See Note; NOTES: [facility] Medical Records Department [address] [place] [address] Emergency Department Summary MR#: [id number] Acct: [id number] Name: LEATHA CARMONA Rep #: [id number] : 1960 54 From: Joey Ponce MD PCP: Chanel Varma DO Status: [facility] ER DATE OF SERVICE: 02/28/2015 CHIEF COMPLAINT: [...] C: Chanel Varma DO T: NTS JOB: [id number] 02/09 <Electronically signed by Joey Ponce MD> Date Joey Ponce MD CC: Chanel Varma DO Date Dictated: 02/28/15 0755 Date Transcribed: 02/28/15754 Electrical Hardware Engineer: Signed 28-Feb-2015 Discharge Instruction Result: Comments: See Note; NOTES: [facility] Medical Records Department [address] [place] [address] Discharge Instruction 02/28/15 0744 MR#: [id number] Acct: [id number] Name: LEATHA ABAD Rep #: [id number] : 1960 54 From: Joey Ponce MD [...] unexpected problems, contact y our doctor. Call [facility] ([phone]) or report to the closest Emergency Room. Call 911 if necessary. 02/28/15 0745 <Electronically signed by Joey Ponce MD> Date ____ Joey Ponce MD Cosigner Signature (If Indicated): Date CC: Chanel Varma DO 07-Jan-2014 Esophagus Only Result: Comments: See Note; NOTES: [facility] Imaging Services [address] [place] [address] Radiology Report MR#: [id number] Acct: [id number] Name: LEATHA ABAD Rep #: [id number] : 1960 F 53 From: Jordy Masters MD PCP: Chanel Varma DO Status: REG CLI Study: Esophagus Only Date of Exam: 01/07/14 Exam# [id number] Ordering Dr: Chanel Varma TUDY: X-RAY - [...] Jordy Masters MD at 10:01 EDT Tel [phone], Service support [phone], CC: Chanel Varma DO; Stevan Ngo MD Electrical Hardware Engineer: Signed Immunization Name Dates Details Influenza (3 years and up) on: 23-May-2009 Comments: Lot #[id number]-right deltoidgiven by:[facility] Pneumococcal (2 years and up) on: 02-Aug-2016 Comments: Site: Deltoid (Left) Lot #: [id number] Family History Unknown Family Member Name Dates [...] Status: Active Most Recent Primary Occupation 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 Comments: 10/30/11 Status: Active Smoking Status Name Dates Details Never smoker Vital Signs Date Test Result Details :34 Pulse 80 /min Comments: Pattern: Regular Respiration Rate 18 /min Comments: Pattern: Unlabored O2 SAT 97 % Comments: Room air BP Systolic 142 mm[Hg] Comments: Patient Position: Sitting; Cuff Location: Left Arm; Cuff Size: Large BP Diastolic 80 mm[Hg] Comments: Patient Position: Sitting; Cuff Location: Left Arm; Cuff Size: Large Weight 194.125 lb Height 67 in Body Mass Index Calculated 30.4 kg/m2 Body Surface Area Calculated 2 m2 :05 Pulse 60 /min Comments: Pattern: Regular Respiration Rate 18 /min Comments: Pattern: Unlabored O2 SAT 96 % Comments: Room air BP Systolic 122 mm[Hg] Comments: Patient Position: Sitting; Cuff Location: Left Arm; Cuff Size: Large BP Diastolic 62 mm[Hg] Comments: Patient Position: Sitting; Cuff Location: Left Arm; Cuff Size: Large Weight 193.125 lb Height 67 in Body Mass Index Calculated 30.25 kg/m2 Body Surface Area Calculated 1.99 m2 :12 Pulse 72 /min Comments: Pattern: Regular Respiration [...] kg/m2 Body Surface Area Calculated 1.98 m2 :06 Pulse 77 /min Comments: Pattern: Regular Respiration [...] Calculated 2.02 m2 Head Circumference 0.00 cm 4-Lla-249187:48 Temperature 99.1 f Comments: Method: Oral Pulse [...] 0.00 cm Results Date Description Value Details 66-Pac-09495:54 Microscopic Examination Comments: PATIENT WAS FASTINGPERFORMED BY: BN Web Geo Servicesrp [address] [id number] BY: CB LabFoodlve Tjaerz3349 [facility] [id number] Bacteria Few (Normal) Mucus Threads Present (Normal) Crystal Type Calcium Oxalate (Normal) Crystals Present (Abnormal) Epithelial Cells (non renal) 0-10 {/hpf} (Normal) Range: 0 - 10 RBC 0-2 {/hpf} (Normal) Range: 0 - 2 WBC 11-30 {/hpf} (Abnormal) Range: 0 - 5 66-Adg-551549:40 HPV automatic Comments: Source.............Cervix;EndocervixNo. of containers..01 ThinPrep VialPATIENT NOT FASTINGPERFORMED BY: WB [facility] [address] [id number] BY: =G [facility] Ana ([address]) [address] [place] [id number] Information: [id number] HPV, high-risk Negative Comments: This high-risk HPV [...] AND MALIGNANCY.CELLULAR CHANGES ASSOCIATED WITH ATROPHY ARE PRESENT.THIS SPECIMEN WAS RESCREENED PART OF OUR DREDGE PUMPER PROGRAM.Satisfactory for e valuation. Endocervical and/or squamous metaplasticcells (endocervical component) are present.Z11.51James Beck, Director Home Health (ASCP)Jacqueline Logan Director Home Health (ASCP) 40-Dtl-174486:15 HGB A1C (18008) Comments: PATIENT NOT FASTINGPERFORMED BY: LabNewselaSt. Lawrence Rehabilitation CenterUksibg6593 [facility] [id number] Hemoglobin A1c 7.0 % (Abnormal) Range: 4.8-5.6 Comments: . Prediabetes: 5.7 - 6.4 Diabetes: >6.4 Glycemic control for adults with diabetes: <7.0 74-Fsm-67577:54 HGB A1C (12212) Comments: PATIENT WAS FASTINGPERFORMED BY: [facility]1447 [facility] [id number] BY: [facility]6370 [facility] [id number] Hemoglobin A1c 7.7 % (Abnormal) Range: 4.8-5.6 Comments: . Prediabetes: 5.7 - 6.4 Diabetes: >6.4 Glycemic control for adults with diabetes: <7.0 :54 CALCIFEDIOL (76756) Comments: PATIENT WAS FASTINGPERFORMED BY: [facility] [place] [id number] BY: [employer] Aegaxa1088 [facility] [id number] Vitamin D, 25-Hydroxy 38.0 ng/mL (Normal) Range: 30.0-100.0 Comments: Vitamin D deficiency has been defined by the [place] of[place]icine and an Endocrine Society practice guideline as alevel of serum 25-OH vitamin D less than 20 ng/mL (1,2).The Endocrine Society went on to further define vitamin Dinsufficiency as a level between 21 and 29 ng/mL (2).1. IOM ([place] of [employer]). 2010. Dietary reference intakes for calcium and D. Real [place]: The National Academies Press.2. Mekhi MF, Dee Dee HADDAD, Fransisco HERNDON, et al. Evaluation, treatment, and prevention of vitamin D deficiency: an Endocrine Society clinical practice guideline. JCEM. 2010; 96(7):1911-30. :54 TSH (86341) Comments: PATIENT WAS FASTINGPERFORMED BY: [facility] [place] [id number] BY: [employer]6370 [facility] [id number] TSH 1.800 {uIU/mL} (Normal) Range: 0.450-4.500 :54 URINALYSIS, W/ MICRO Comments: PATIENT WAS FASTINGPERFORMED BY: [facility] [place] [id number] BY: D[employer]nik70 [facility] [id number] (09763) Microscopic Examination See below: (Normal) Comments: Microscopic was indicated and was performed. Nitrite, Urine Negative (Normal) Urobilinogen,Semi-Qn 0.2 mg/dL (Normal) Range: 0.2-1.0 Bilirubin Negative (Normal) Occult Blood Negative (Normal) Ketones Negative (Normal) Glucose Negative (Normal) Protein Negative (Normal) WBC Esterase 1+ (Abnormal) Appearance Clear (Normal) Urine-Color Yellow (Normal) pH 5.0 (Normal) Range: 5.0-7.5 Specific Martinez 1.026 (Normal) Range: 1.005-1.030 :54 MICROALBUMIN: CREATININE Comments: PATIENT WAS FASTINGPERFORMED BY: [employer] [id number] BY: [employer] [id number] RATIO (93906) AND (88501) Alb/Creat Ratio 8.9 {mg/g_creat} (Normal) Range: 0.0-30.0 Comments: Normal: 0.0 - 30.0 Albuminuria: 31.0 - 300.0 Clinical albuminuria: >300.0 Albumin, Urine 19.6 ug/mL (Normal) Creatinine, Urine 221.4 mg/dL (Normal) :54 METABOLIC PANEL, Comments: PATIENT WAS FASTINGPERFORMED BY: [employer] [id number] BY: Web Geo ServicesTravis Ville 0968670 [facility] [id number] COMPREHENSIVE (93893) ALT (SGPT) 39 [iU]/L (Abnormal) Range: 0-32 AST (SGOT) 45 [iU]/L (Abnormal) Range: 0-40 Alkaline Phosphatase 72 [iU]/L (Normal) Range: 39-117 Bilirubin, Total 0.3 mg/dL (Normal) Range: 0.0-1.2 A/G Ratio 1.4 (Normal) Range: 1.2-2.2 Globulin, Total 3.2 g/dL (Normal) Range: 1.5-4.5 Albumin 4.4 g/dL (Normal) Range: 3.5-5.5 Protein, Total 7.6 g/dL (Normal) Range: 6.0-8.5 Calcium 9.3 mg/dL (Normal) Range: 8.7-10.2 Carbon Dioxide, Total 21 mmol/L (Normal) Range: 20-29 Chloride 102 mmol/L (Normal) Range: 96-106 Potassium 4.3 mmol/L (Normal) Range: 3.5-5.2 Sodium 139 mmol/L (Normal) Range: 134-144 BUN/Creatinine Ratio 17 (Normal) Range: 9-23 eGFR If Africn Am 69 mL/min/1.73 (Normal) eGFR If NonAfricn Am 60 mL/min/1.73 (Normal) Creatinine 1.03 mg/dL (Abnormal) Range: 0.57-1.00 BUN 17 mg/dL (Normal) Range: 6-24 Glucose 193 mg/dL (Abnormal) Range: 65-99 44-Vok-60731:54 LIPOPROTEIN, BLD, BY NMR Comments: PATIENT WAS FASTINGPERFORMED BY: BN [facility] [address] [id number] BY: CB [facility] Bdioky7607 [facility] [id number] (30949) LP-IR Score 81 (Abnormal) Comments: INSULIN RESISTANCE MARKER <--Insulin Sensitive Insulin Resistant--> Percentile in Reference PopulationInsulin Resistance ScoreLP-IR Score Low 25th 50th 75th High <27 27 45 63 >63LP-IR Score is inaccurate if patient is non-fasting. .The LP-IR score is a laboratory developed i [facility] that has beenassociated with insulin resistance and diabetes risk and should beused as one component of a physician's clinical assessment. TheLP-IR score listed above has not been cleared by the US Food andDrug Administration. LDL Size 20.2 nm (Abnormal) Comments: INTERPRETATIVE INFORMATION PARTICLE CONCENTRATION AND SIZE <--Lower CVD Risk Highe r CVD Risk--> LDL AND HDL PARTICLES Percentile in Reference Population HDL-P (total) High 75th 50th 25th Low >34.9 34.9 30.5 26.7 <26.7 . Small LDL-P Low 25th 50th 75th High <117 117 527 839 >839 . LDL Size <-Large (Pattern A)-> <-Small (Pattern B)-> 23.0 20.6 20.5 19.0 Small LDL-P and LDL Size are associated with CVD risk, but not afterLDL-P is taken into account. .These assays were developed and their performance characteristicsdetermined by [employer]. These assays have not been cleared by Teresa Food and Drug Administration. The clinical utility of theselaboratory values have not been fully established. Small LDL-P 816 nmol/L (Abnormal) HDL-P (Total) 31.1 umol/L (Normal) Cholesterol, Total 174 mg/dL (Normal) Range: 100-199 Triglycerides 234 mg/dL (Abnormal) Range: 0-149 HDL-C 35 mg/dL (Abnormal) LDL-C 92 mg/dL (Normal) Range: 0-99 Comments: . Optimal < 100 Above optimal 100 - 129 Borderline 1 30 - 159 High 160 - 189 Very high > 189 .LDL-C is inaccurate if patient is non-fasting. LDL-P 1298 nmol/L (Abnormal) Comments: Low < 1000 Moderate 1000 - 1299 Borderline-High 1300 - 1599 High 1600 - 2000 Very High > 2000 50-Tud-41701:54 CBC W/AUTO DIFF WBC Comments: PATIENT WAS FASTINGPERFORMED BY: BN [facility] [address] [id number] BY: [facility] Ueyqbr0960 [facility] [id number] (49803) Immature Grans (Abs) 0.0 {x10E3/uL} (Normal) Range: 0.0-0.1 Immature Granulocytes 0 % (Normal) Baso (Absolute) 0.0 {x10E3/uL} (Normal) Range: 0.0-0.2 Eos (Absolute) 0.1 {x10E3/uL} (Normal) Range: 0.0-0.4 Monocytes(Absolute) 0.4 {x10E3/uL} (Normal) Range: 0.1-0.9 Lymphs (Absolute) 2.7 {x10E3/uL} (Normal) Range: 0.7-3.1 Neutrophils (Absolute) 3.2 {x10E3/uL} (Normal) Range: 1.4-7.0 Basos 1 % (Normal) Eos 2 % (Normal) Monocytes 7 % (Normal) Lymphs 41 % (Normal) Neutrophils 49 % (Normal) Platelets 274 {x10E3/uL} (Normal) Range: 150-379 RDW 13.5 % (Normal) Range: 12.3-15.4 MCHC 31.9 g/dL (Normal) Range: 31.5-35.7 MCH 28.8 pg (Normal) Range: 26.6-33.0 MCV 90 fL (Normal) Range: 79-97 Hematocrit 38.9 % (Normal) Range: 34.0-46.6 Hemoglobin 12.4 g/dL (Normal) Range: 11.1-15.9 RBC 4.31 {x10E6/uL} (Normal) Range: 3.77-5.28 WBC 6.5 {x10E3/uL} (Normal) Range: 3.4-10.8 09-Pxt-92992:00 CBC W/Diff, Automated Comments: [facility] [address] [place], [place], [id number] Absolute Lymph 2.33 {X10_3/ul} (Normal) Range: 0.83-4.51 [...] 4.2-5.4 WBC 9.3 K/mm3 (Normal) Range: 4.4-11.0 22-Juj-57923:00 Comprehensive Metabolic Profil Comments: [facility] [address] [place], [place], [phone] GAP 10 (Normal) Range: 5-15 CO2 24.0 [...] A.D.A. criteria.Please note revised GLUCOSE reference range waduggxqo56/02/2018. 7-Grs-238225:58 CBC W/Diff, Automated Comments: DR. HUTCHISON ORDERED CMP CBCDKSHIRA SHEPHERD ORDERED CBCD [facility] [address] [place], [address] Absolute Lymph 2.63 {X10_3/ul} (Normal) Range: 0.83-4.51 [...] 4.2-5.4 WBC 6.5 K/mm3 (Normal) Range: 4.4-11.0 5-Lpv-747461:58 Comprehensive Metabolic Profil Comments: DR. HUTCHISON ORDERED CMP CBCMINERVA SHEPHERD ORDERED CBCD [facility] [address] [place], [address] GAP 9 (Normal) Range: 5-15 CO2 27.0 [...] A.D.A. criteria.Please note revised GLUCOSE reference range xvfagwrjp69/02/2018. 8-Vle-820696:58 Prothrombin Time w/INR Comments: DR. HUTCHISON ORDERED CMP KELLY SHEPHERD ORDERED [facility]CD [facility] [address]omsvf[address] [place], [place], [id number] INR 1.0 (Normal) PROTIME 13.5 s (Normal) Range: 11.7-14.9 11-Pag-971302:21 PT (PROTHROMBIN TIME) (95948) Comments: PATIENT NOT FASTINGPERFORMED BY: LabCoSt. Lawrence Rehabilitation CenterNflueb3653 [facility] [id number] INR 1.0 (Normal) Range: 0.8-1.2 Comments: Reference interval is for non-anticoagulated patients. . Suggested INR therapeutic range for Vitamin K anta gonist therapy: Standard Dose (moderate intensity therapeutic range): 2.0 - 3.0 Higher intensity therapeutic range 2.5 - 3.5 Prothrombin Time 10.5 {sec} (Normal) Range: 9.1-12.0 67-Hit-526612:21 CBC & PLATELETS (AUTO) Comments: PATIENT NOT FASTINGPERFORMED BY: LabCoSt. Lawrence Rehabilitation CenterGsizcn1360 [facility] [id number] (73351) Platelets 288 {x10E3/uL} (Normal) Range: 150-379 RDW 13.6 % (Normal) Range: 12.3-15.4 MCHC 33.1 g/dL (Normal) Range: 31.5-35.7 MCH 30.0 pg (Normal) Range: 26.6-33.0 MCV 91 fL (Normal) Range: 79-97 Hematocrit 40.5 % (Normal) Range: 34.0-46.6 Hemoglobin 13.4 g/dL (Normal) Range: 11.1-15.9 RBC 4.47 {x10E6/uL} (Normal) Range: 3.77-5.28 WBC 6.7 {x10E3/uL} (Normal) Range: 3.4-10.8 58-Ehl-135185:35 Basic Metabolic Profile (BMP) Comments: [facility] [address] [place], [phone] GAP 9 (Normal) Range: 5-15 CO2 29.0 [...] A.D.A. criteria.Please note revised GLUCOSE reference range zmievhfis83/02/2018. 67-Rgq-635109:11 Bedside Glucose Comments: [facility] LaboratoryPoint of Csiu[address] [place] [address] BEDSIDE GLU 203 mg/dL (Abnormal) Range: 70-110 Comments: MANAGEMENT OF PATIENT CARE PER NURSING PROTOCOL 57-Kqq-771035:23 CBC W/Diff, Automated Comments: [facility] Axjpkqbslu5379 [facility] [address] [place], [place], [address] Absolute Lymph 2.83 {X10_3/ul} (Normal) Range: 0.83-4.51 [...] 4.2-5.4 WBC 6.9 K/mm3 (Normal) Range: 4.4-11.0 61-Onf-213983:23 Comprehensive Metabolic Profil Comments: [facility] [address], [place], [address] GAP 9 (Normal) Range: 5-15 CO2 29.0 [...] A.D.A. criteria.Please note revised GLUCOSE reference range mwukqitpv18/02/2018. 46-Meu-406005:01 HEPATIC FUNCTION PANEL Comments: PATIENT WAS FASTINGPERFORMED BY: JelasticCibola General HospitalSmdkme0706 [facility] [id number] (75683) ALT (SGPT) 22 [iU]/L (Normal) Range: 0-32 AST (SGOT) 27 [iU]/L (Normal) Range: 0-40 Alkaline Phosphatase 58 [iU]/L (Normal) Range: 39-117 Bilirubin, Direct 0.12 mg/dL (Normal) Range: 0.00-0.40 Bilirubin, Total 0.5 mg/dL (Normal) Range: 0.0-1.2 Albumin 4.4 g/dL (Normal) Range: 3.5-5.5 Protein, Total 7.6 g/dL (Normal) Range: 6.0-8.5 43-Nxi-639610:01 Lipid Panel (22665) Comments: PATIENT WAS FASTINGPERFORMED BY: SemantifyCoCibola General HospitalArkouc2691 [facility] [id number] LDL/HDL Ratio 2.9 {ratio} (Normal) Range: 0.0-3.2 Comments: LDL/HDL Ratio Men Women 1/2 Avg.Risk 1.0 1.5 Av g.Risk 3.6 3.2 2X Avg.Risk 6.2 5.0 3X Avg.Risk 8.0 6.1 LDL Cholesterol Calc 116 mg/dL (Abnormal) Range: 0-99 VLDL Cholesterol Daniel 44 mg/dL (Abnormal) Range: 5-40 HDL Cholesterol 40 mg/dL (Normal) Triglycerides 220 mg/dL (Abnormal) Range: 0-149 Cholesterol, Total 200 mg/dL (Abnormal) Range: 100-199 2-Xsg-379554:04 Microscopic Examination Comments: PATIENT WAS FASTINGPERFORMED BY: MagnasenseMun[facility]6370 [facility] [id number] Bacteria Few (Normal) Mucus Threads Present (Normal) Epithelial Cells (non renal) 0-10 {/hpf} (Normal) Range: 0 - 10 RBC 0-2 {/hpf} (Normal) Range: 0 - 2 WBC 6-10 {/hpf} (Abnormal) Range: 0 - 5 9-Tnn-802265:04 Protein Electro, Random Urine Comments: PATIENT WAS FASTINGPERFORMED BY: [facility]6370 [facility] [id number] Please note: SPRCS (Normal) Comments: Protein electrophoresis scan will follow via computer, mail, orcourier delivery. M-Sukhwinder, % Comment: % (Normal) Comments: ASYMMETRICAL GAMMA Gamma Globulin, U 17.8 % (Normal) Beta Globulin, U 19.6 % (Normal) Rnicc-3-Jmshsgmi, U 16.1 % (Normal) Msife-4-Jfcveoys, U 5.4 % (Normal) Albumin, U 41.1 % (Normal) Protein,Total,Urine 9.5 mg/dL (Normal) 72-Lbk-502084:00 HGB A1C (50324) Comments: do in 3months; PATIENT WAS FASTINGPERFORMED BY: [facility]6370 [facility] [id number] Hemoglobin A1c 7.8 % (Abnormal) Range: 4.8-5.6 Comments: . Pre-diabetes: 5.7 - 6.4 Diabetes: >6.4 Glycemic control for adults with diabetes: <7.0 8-Hal-036682:04 HGB A1C (34173) Comments: PATIENT WAS FASTINGPERFORMED BY: [facility]6370 [facility] [id number] Hemoglobin A1c 7.1 % (Abnormal) Range: 4.8-5.6 Comments: . Pre-diabetes: 5.7 - 6.4 Diabetes: >6.4 Glycemic control for adults with diabetes: <7.0 3-Gyq-376271:04 BXFGU-KUEYLMGLRZS-QUPXB (37866) Comments: PATIENT WAS FASTINGPERFORMED BY: [facility]6370 [facility] [id number] AFP, Serum, Tumor Marker 2.1 ng/mL (Normal) Range: 0.0-8.3 Comments: Aric ECLIA methodology :04 TSH (43402) Comments: PATIENT WAS FASTINGPERFORMED BY: [facility]6370 [facility] [id number] TSH 3.660 {uIU/mL} (Normal) Range: 0.450-4.500 2-Ofo-127075:04 URINALYSIS, W/ MICRO (94444) Comments: PATIENT WAS FASTINGPERFORMED BY: [facility]6370 [facility] [id number] Microscopic Examination See below: (Normal) Comments: Microscopic was indicated and was performed. Nitrite, Urine Negative (Normal) Urobilinogen,Semi-Qn 0.2 mg/dL (Normal) Range: 0.2-1.0 Bilirubin Negative (Normal) Occult Blood Negative (Normal) Ketones Negative (Normal) Glucose Negative (Normal) Protein Negative (Normal) WBC Esterase 1+ (Abnormal) Appearance Clear (Normal) Urine-Color Yellow (Normal) pH 5.0 (Normal) Range: 5.0-7.5 Specific Martinez 1.020 (Normal) Range: 1.005-1.030 1-Txz-744837:04 MICROALBUMIN: CREATININE RATIO Comments: PATIENT WAS FASTINGPERFORMED BY: [facility]6370 [facility] [id number] (91546) AND (46703) Alb/Creat Ratio 8.5 {mg/g_creat} (Normal) Range: 0.0-30.0 Albumin, Urine 11.4 ug/mL (Normal) Creatinine, Urine 134.1 mg/dL (Normal) 0-Bgc-376313:04 LIPID PANEL (89002) Comments: PATIENT WAS FASTINGPERFORMED BY: [facility]6370 [facility] [id number] LDL/HDL Ratio 2.6 {ratio_units} (Normal) Range: 0.0-3.2 Comments: LDL/HDL Ratio Men Women 1/2 Avg.Risk 1.0 1.5 Av g.Risk 3.6 3.2 2X Avg.Risk 6.2 5.0 3X Avg.Risk 8.0 6.1 LDL Cholesterol Calc 135 mg/dL (Abnormal) Range: 0-99 VLDL Cholesterol Daniel 25 mg/dL (Normal) Range: 5-40 HDL Cholesterol 51 mg/dL (Normal) Triglycerides 127 mg/dL (Normal) Range: 0-149 Cholesterol, Total 211 mg/dL (Abnormal) Range: 100-199 6-Zyz-947836:04 CALCIFEDIOL (10681) Comments: PATIENT WAS FASTINGPERFORMED BY: [employer] Deiivl8009 [facility] [id number] Vitamin D, 25-Hydroxy 56.1 ng/mL (Normal) Range: 30.0-100.0 Comments: Vitamin D deficiency has been defined by the [place] ofWhite Hospitalcine and an Endocrine Society practice guideline as alevel of serum 25-OH vitamin D less than 20 ng/mL (1,2).The Endocrine Society went on to further define vitamin Dinsufficiency as a level between 21 and 29 ng/mL (2).1. IOM ([place] of [employer]). 2010. Dietary reference intakes for calcium and D. Real [place]: The National Academies Press.2. Mekhi MF, Dee Dee NC, Fransisco HERNDON, et al. Evaluation, treatment, and prevention of vitamin D deficiency: an Endocrine Society clinical practice guideline. JCEM. 2010; 96(7):1911-30. 5-Okk-400218:04 Serum Protein Electrophoresis Comments: PATIENT WAS FASTINGPERFORMED BY: Web Geo ServicesSt. Lawrence Rehabilitation CenterHhzqro7713 [facility] [id number] ([facility]) (55219) Please note: SPRCS (Normal) Comments: Protein electrophoresis scan will follow via computer, mail, orcourier delivery. A/G Ratio 0.9 (Normal) Range: 0.7-1.7 Globulin, Total 3.9 g/dL (Normal) Range: 2.2-3.9 M-Sukhwinder Not Observed g/dL (Normal) Gamma Globulin 1.3 g/dL (Normal) Range: 0.4-1.8 Beta Globulin 1.3 g/dL (Normal) Range: 0.7-1.3 Pmrcl-1-Sdypqvtp 1.1 g/dL (Abnormal) Range: 0.4-1.0 Nuvna-8-Mcbtdumn 0.3 g/dL (Normal) Range: 0.0-0.4 Albumin 3.4 g/dL (Normal) Range: 2.9-4.4 Protein, Total, Serum 7.3 g/dL (Normal) Range: 6.0-8.5 59-Jiq-491501:43 Crystals, Body Fluid Comments: [facility] [address] [place], [place], [address] PATH REV Reviewed (Normal) Comments: Negative for malignant cells.Acute inflammation.A few crystals are oted (mixture of nondescript and calciumpyrophosphate).Clinical correlation necessary.Michelet Bills M.D. 09/26/17 AMENDED REPORT 1011 PATH REV previously reported as: Will follow SOURCE/BF SYNOVIAL (Normal) CRYSTALS/BF CALCIUM PYROPHOS (Normal) 30-Kro-001311:43 Culture, Body Fluid Comments: [facility] [address] [place], [place], [id number] CUBF See Note (Normal) Comments: List Antibiotics Last 48 Hours? UNKList Antibiotics to be Started? UNKComments: RIGHT KNEEGram StainCentrifuged Specimen? Culture performed on centrifuged specimen Gram Stain 3+ White Blood Cells No organisms seen Body Fluid CultNO GROWTH IN 14 DAYS Cult, AnaerobicNo growth in 5 days. 31-Diq-978130:43 Synovial Fluid RBC, WBC AND Comments: [facility] [address] [place], [place], [address] Diff PATH COM/SYFL May follow (Normal) MONO [...] Nucleated Cell Types in the BodyFluid. SYNOVIAL ANA. Cloudy (Normal) SYNOVIAL COLOR Yellow (Normal) SYNOVIAL SOURCE R KNEE (Normal) :51 CBC W/Diff, Automated Comments: [facility] [address] [place], [place], [id number] Absolute Lymph 2.59 {X10_3/ul} (Normal) Range: 0.83-4.51 [...] 4.2-5.4 WBC 10.5 K/mm3 (Normal) Range: 4.4-11.0 :51 Comprehensive Metabolic Profil Comments: [facility] [address] [place], [place], [address] GAP 9 (Normal) Range: 5-15 CO2 26.0 mmol/L (Normal) Range: 21.0-32.0 CL 100 mmol/L (Normal) Range: 98-107 K 4.0 mmol/L (Normal) Range: 3.5-5.1 NA 135 mmol/L (Abnormal) Range: 136-145 T BILI 0.30 mg/dL (Normal) Range: 0.20-1.00 ALT 16 U/L (Normal) Range: 13-56 Comments: Please note revised ALT reference range jodtwlxwa19/28/2018. ALK P 83 U/L (Normal) Range: 45-117 [...] 126 mg/dLsuggests DIABETES MELLITUS per A.D.A. criteria. 12-Zbc-002990:41 CBC W/Diff, Automated Comments: [facility] [address] [place], [place], [address] Absolute Lymph 2.10 {X10_3/ul} (Normal) Range: 0.83-4.51 [...] 4.2-5.4 WBC 9.4 K/mm3 (Normal) Range: 4.4-11.0 06-Bhs-637370:41 Comprehensive Metabolic Profil Comments: [facility] [address] [place], [place], [address] GAP 10 (Normal) Range: 5-15 CO2 27.0 [...] 126 mg/dLsuggests DIABETES MELLITUS per A.D.A. criteria. 40-Jfz-776902:10 CBC W/Diff, Automated Comments: CMP,CBCD FOR DR HUTCHISON WELL [facility] Zgjwdetaqh0070 [facility] [place], [place], [address] Absolute Lymph 2.93 {X10_3/ul} (Normal) Range: 0.83-4.51 [...] 4.2-5.4 WBC 8.5 K/mm3 (Normal) Range: 4.4-11.0 55-Heq-273164:10 Comprehensive Metabolic Profil Comments: CMP,CBCD FOR DR HUTCHISON WELL [facility] [address] [place], [address] GAP 9 (Normal) Range: 5-15 CO2 26.0 [...] 126 mg/dLsuggests DIABETES MELLITUS per A.D.A. criteria. 84-Efi-487533:10 Lipid Profile Comments: CMP,CBCD FOR DR HUTCHISON WELL [facility] Cxigmmwwwj[address] [place], [address] VLDL 36 mg/dL (Normal) Range: 5-40 LDL [...] 200-240 mg/dL Borderline >240 mg/dL High Risk 46-Kjt-452774:10 Microalb:Creat Ratio,Random UR Comments: CMP,CBCD FOR DR HUTCHISON WELL [facility] Yx[address] [place], [address] MALB:CREAT 13.6 {mg/g_CRE} (Normal) MICROALBUMIN,UR 16.9 mg/L (Normal) UR CREAT 124.00 mg/dL (Normal) 63-Cvc-191867:10 Thyroid Stim Hormone (TSH) Comments: CMP,CBCD FOR DR HUTCHISON WELL [facility] Ggyk[address] [place], [address] TSH 1.11 {uIU/mL} (Normal) Range: 0.358-3.74 74-Lbn-170669:10 Urinalysis, Complete Comments: CMP,CBCD FOR DR HUTCHISON WELL Sakshi was Urine Obtained? CLEAN [facility] Gojivujaqa9733 [place], [address] MUCUS, URINE 0 SEEN {/hpf} (Normal) [...] CLARITY Sl. Cloudy (Normal) COLOR Yellow (Normal) 53-Fwt-332065:10 Vitamin D,25 Hydroxy Comments: CMP,CBCD FOR DR HUTCHISON WELL [facility] Ywndmainvr0223 Ozzy LassiterLottie [place], [id number] Vitamin D 25-OH 108.1 ng/mL (Normal) Comments: [...] falsely elevatedvalues when tested with the Advia Anctuaur Vitamin D assay.With fluorescein interference, observed Vitamin D values canbe as high as >150 ng/mL (>375 nmol/L). Samples should beresubmitted post fluorescein clearance to ensure there is nointerference with Vitamin D test results. 33-Lfj-888662:59 HgA1C , Office (55901) HgA1C , Office 7.3 % (Abnormal) Range: 4.6 - 7.1 13-Rru-485028:59 Blood Glucose , Office (56184) Blood Glucose , Office 192 (Normal) 29-Vns-958993:16 Rapid Flu (87733 x 2) Influenza A Ag neg a and b (Normal) 7-Afo-285721:14 URINE LISANDRO CULTURE-IDENTIFICATN Comments: PATIENT NOT FASTINGPERFORMED BY: [facility]CoSt. [facility] Rehabilitation CenterWfbqfn6399 [facility] [id number] Information: SRC:UC ([id number]) Result 1 MUG (Normal) Comments: Mixed urogenital flora10,000-25,000 colony forming units per mL Urine Final report (Normal) Culture,Comprehensive 4-Ubn-677892:00 Urinalysis, Office (59009) UA - LEUKOCYTE ESTERASE Trace (Normal) UA - NITRITE Negative (Normal) URINE UROBILINGN NHAN TIMED Normal mg/dL (Normal) UA - PROTEIN Negative mg/dL (Normal) UA - PH 5 (Abnormal) UA - BLOOD Negative (Normal) UA - SPECIFIC GRAVITY 1.025 (Normal) UA - KETONES Negative mg/dL (Normal) UA - BILIRUBIN Small (Normal) UA - GLUCOSE Negative (Normal) 7-Egy-193730:59 Blood Glucose , Office (94524) Blood Glucose , Office 117 (Normal) 4-Spy-465974:06 Rapid Flu (62592 x 2) Influenza A Ag neg (Normal) :04 HgA1C , Office (11151) HgA1C , Office 6.9 % (Normal) Range: 4.6 - 7.1 :04 Blood Glucose , Office (89836) Blood Glucose , Office 153 (Normal) 8-Qiw-038952:11 CBC W/Diff, Automated Comments: [facility] [address] [place], [address] Absolute Lymph 2.54 {X10_3/ul} (Normal) Range: 0.83-4.51 [...] 4.2-5.4 WBC 7.8 K/mm3 (Normal) Range: 4.4-11.0 7-Hcm-649071:11 Comprehensive Metabolic Profil Comments: [facility] Eswtdqvbzv9062 [place], [address] GAP 6 (Normal) Range: 5-15 CO2 29.0 [...] 200 mg/dLsuggests DIABETES MELLITUS per A.D.A. criteria. 72-Gdf-047514:47 Pap IG, HPV-hr Comments: No. of containers..01 CYTYC Thin Prep VialPERFORMED BY: WB [facility] Jpgajprlqo057 [facility] [id number] BY: =G [facility] Uchajqvvby652 [facility] [id number] Information: [id number] HPV, high-risk Negative Comments: This high-risk HPV [...] squamous metaplasticcells (endocervical component) are present.Z01.419Z11.51Leslie Muñoz Director Home Health (ASCP) :56 HgA1C , Office (13682) HgA1C , Office 6.4 % (Normal) Range: 4.6 - 7.1 :56 Blood Glucose , Office (37649) Blood Glucose , Office 132 (Normal) 9-Dyy-774207:21 Microscopic Examination Comments: PATIENT WAS FASTINGPERFORMED BY: LabCoSt. [facility] Rehabilitation CenterVkdwox9847 [facility] [id number] Bacteria None seen (Normal) Mucus Threads Present (Normal) Cast Type Hyaline casts (Normal) Casts Present {/lpf} (Abnormal) Epithelial Cells (non renal) 0-10 {/hpf} (Normal) Range: 0 - 10 RBC 0-2 {/hpf} (Normal) Range: 0 - 2 WBC 0-5 {/hpf} (Normal) Range: 0 - 5 :15 CBC W/Diff, Automated Comments: [facility] Numvdfjwxf[address] [place], [place], [address] Absolute Lymph 3.05 {X10_3/ul} (Normal) Range: 0.83-4.51 [...] 4.2-5.4 WBC 9.4 K/mm3 (Normal) Range: 4.4-11.0 81-Piw-505265:15 Comprehensive Metabolic Profil Comments: [facility] [address]yl[address]epwt[address] [place], [place], [address] GAP 8 (Normal) Range: 5-15 CO2 27.0 [...] HOMEOSTASIS per A.D.A. criteria. :15 Lipase Comments: [facility] [address] [place], [address] LIPASE 206 U/L (Normal) Range: 73-393 :54 CBC W/Diff, Automated Comments: [facility] Aft[address]jerpzo[address] [place], [place], [address] Absolute Lymph 2.75 {X10_3/ul} (Normal) Range: 0.83-4.51 [...] 4.2-5.4 WBC 5.7 K/mm3 (Normal) Range: 4.4-11.0 :54 Comprehensive Metabolic Profil Comments: [facility] Bprauptqvp[address] [place], [address] GAP 6 (Normal) Range: 5-15 CO2 30.0 [...] <126 mg/dLsuggests IMPAIRED HOMEOSTASIS per A.D.A. criteria. 1-Rjr-819970:21 CALCIFIDIOL (78631) VIT D 25 Comments: PATIENT WAS FASTINGPERFORMED BY: [facility] Lwuvsw3533 [facility] [place] [id number] Vitamin D, 25-Hydroxy 114.0 ng/mL (Abnormal) Range: 30.0-100.0 Comments: Vitamin D deficiency has been defined by the [place] of[place]icine and an Endocrine Society practice guideline as alevel of serum 25-OH vitamin D less than 20 ng/mL (1,2).The Endocrine Society went on to further define vitamin Dinsufficiency as a level between 21 and 29 ng/mL (2).1. IOM ([place] of Medicine). 2010. Dietary reference intakes for calcium and D. Real [place]: The National Academies Press.2. Mekhi MF, Dee Dee HADDAD, Fransisco HERNDON, et al. Evaluation, treatment, and prevention of vitamin D deficiency: an Endocrine Society clinical practice guideline. JCEM. 2010; 96(7):1911-30. 1-Agz-030724:21 TSH (64115) Comments: PATIENT WAS FASTINGPERFORMED BY: LabNewselarp Zruzqq7174 [facility] [place] [id number] TSH 2.730 {uIU/mL} (Normal) Range: 0.450-4.500 4-Nza-660664:21 URINALYSIS, W/ MICRO (64530) Comments: PATIENT WAS FASTINGPERFORMED BY: [facility] Aesmxt2170 [facility] [id number] Microscopic Examination See below: (Normal) Comments: Microscopic was indicated and was performed. Nitrite, Urine Negative (Normal) Urobilinogen,Semi-Qn 0.2 mg/dL (Normal) Range: 0.2-1.0 Bilirubin Negative (Normal) Occult Blood Negative (Normal) Ketones Negative (Normal) Glucose Negative (Normal) Protein Negative (Normal) WBC Esterase Trace (Abnormal) Appearance Clear (Normal) Urine-Color Yellow (Normal) pH 6.0 (Normal) Range: 5.0-7.5 Specific Martinez 1.020 (Normal) Range: 1.005-1.030 2-Yhr-164906:21 MICROALBUMIN: CREATININE RATIO Comments: PATIENT WAS FASTINGPERFORMED BY: [facility] Koovgh4029 [facility] [id number] (79199) AND (46100) Microalb/Creat Ratio 5.3 {mg/g_creat} (Normal) Range: 0.0-30.0 Microalbumin, Urine 7.4 ug/mL (Normal) Creatinine, Urine 139.7 mg/dL (Normal) 3-Nay-732956:21 METABOLIC PANEL, COMPREHENSIVE Comments: PATIENT WAS FASTINGPERFORMED BY: LabCoSt. [facility] Rehabilitation CenterRkedow0845 [facility] [id number] (16598) ALT (SGPT) 20 [iU]/L (Normal) Range: 0-32 [...] Glucose, Serum 155 mg/dL (Abnormal) Range: 65-99 6-Xjv-412700:21 CBC W/AUTO DIFF WBC Comments: PATIENT WAS FASTINGPERFORMED BY: LabCoSt. [facility] Rehabilitation CenterWigjjg8290 [facility] [id number] Information: [id number] (38866) Immature Grans (Abs) 0.0 {x10E3/uL} (Normal) Range: [...] (Normal) Range: 3.4-10.8 :07 HgA1C , Office (19368) HgA1C , Office 5.8 % (Normal) Range: 4.6 - 7.1 :07 Blood Glucose , Office (30945) Blood Glucose , Office 92 (Normal) :05 HgA1C , Office (47237) HgA1C , Office 6.6 % (Normal) Range: 4.6 - 7.1 :05 Blood Glucose , Office (26638) Blood Glucose , Office 130 (Normal) :46 CBC W/Diff, Automated Comments: [facility] [address]wt[address]jgwf[address] [place], [address] Absolute Lymph 3.03 {X10_3/ul} (Normal) Range: 0.83-4.51 [...] 4.2-5.4 WBC 7.2 K/mm3 (Normal) Range: 4.4-11.0 9-Aue-612901:46 Comprehensive Metabolic Profil Comments: [facility] Aaxwlkcsme[address] [place], [address] GAP 7 (Normal) Range: 5-15 CO2 29.0 [...] A.D.A. criteria. :09 Blood Glucose , Office (06851) Blood Glucose , Office 181 (Normal) :09 HgA1C , Office (25750) HgA1C , Office 7.1 % (Normal) Range: 4.6 - 7.1 :50 AFP, Tumor Marker Comments: Is Patient ? NComments: [facility] (refer to report for specific site)refer to report for address and phone number AFP TUMOR 2253 1.6 ng/mL (Normal) Range: 0.0-8.3 Comments: [employer] ECLIA methodologyPerformed at: [employer] - [facility] [address] [id number] Director: Herve Mata PhD, Phone: [phone] :[phone] CBC W/Diff, Automated Comments: [facility] Akwrcmwjkt0699 Ozzy [place], [place], [address] Absolute Lymph 3.23 {X10_3/ul} (Normal) Range: 0.83-4.51 [...] 4.2-5.4 WBC 7.6 K/mm3 (Normal) Range: 4.4-11.0 4-Etn-903595:50 Comprehensive Metabolic Profil Comments: Comments: [facility] Exwqofzobx5[address] [place], [place], [address] GAP 6 (Normal) Range: 5-15 CO2 28.0 [...] <126 mg/dLsuggests IMPAIRED HOMEOSTASIS per A.D.A. criteria. 3-Hvk-184302:50 Lipid Profile Comments: Comments: [facility] Eszgrctqgq4720 [place], [address] VLDL 34 mg/dL (Normal) Range: 5-40 LDL [...] 200-240 mg/dL Borderline >240 mg/dL High Risk 9-Uxk-891906:50 Microalb:Creat Ratio,Random UR Comments: [facility] Kxt[address]igcpeb[address] [place], [address] MALB:CREAT 15.3 {mg/g_CRE} (Normal) MICROALBUMIN,UR 20.4 mg/L (Normal) UR CREAT 133.00 mg/dL (Normal) 2-Wcy-171881:50 Prothrombin Time w/INR Comments: [facility] Decldjckow[address] [place], [address] INR 0.9 (Normal) PROTIME 12.8 s (Normal) Range: 11.7-14.9 9-Ary-127786:50 Thyroid Stim Hormone (TSH) Comments: Comments: [facility] Qnsgtssskm[address] [place], [address] TSH 1.00 {uIU/mL} (Normal) Range: 0.358-3.74 5-Oss-088871:50 Urinalysis, Complete Comments: Comments: NHow was Urine Obtained? [facility], [facility]WD[facility] Zjsroemrgb4115 [place], [address] MUCUS, URINE 0 SEEN {/hpf} (Normal) [...] (Normal) CLARITY Clear (Normal) COLOR Yellow (Normal) :50 Vitamin D,25 Hydroxy Comments: [facility] Xqvkdaittj7730 Ozzy [place], [place], [address] Vitamin D 25-OH 81.8 ng/mL (Normal) Comments: Vitamin D 25(OH) Status Range Deficiency <20 ng/mL (50nmol/L) Insuffciency 20 - 30 ng/mL (50 - 75 nmol/L) Sufficiency 30 - 100 ng/mL (75 - 250 nmol/L) Toxicity >100 ng/mL (>250 nmol/L) 7-Jeu-851617:27 HPV automatic Comments: Source.............Cervical;EndocervicalNo. of containers..01 CYTYC Thin Prep VialPATIENT NOT FASTINGPERFORMED BY: Lab[address] [id number] BY: =Benita Lane ([address]) [facility] [address] [id number] Information: [id number] HPV, high-risk Negative Comments: This high-risk HPV [...] Endocervical and/or squamous metaplasticcells (endocervical component) are present.V70.0Samantha Agnieszka cotter, Director Home Health (ASCP) 58-Inv-544912:27 Amylase (22380) Comments: PATIENT NOT FASTINGPERFORMED BY: CB [facility] Rcdjjt7121 [facility] [id number] Amylase, Serum 58 U/L (Normal) Range: 31-124 17-Eno-402600:27 Lipase (29415) Comments: PATIENT NOT FASTINGPERFORMED BY: CB [facility] Lzjkvv1443 [facility] [id number] Lipase, Serum 46 U/L (Normal) Range: 0-59 16-Cjn-719760:27 Sed Rate Erythrocyte (12967) Comments: PATIENT NOT FASTINGPERFORMED BY: CB [facility] Rivptg7523 [facility] [id number] Sedimentation Rate-Westergren 21 mm/h (Normal) Range: 0-40 88-Aif-849717:27 Metabolic Panel, Comprehensive Comments: PATIENT NOT FASTINGPERFORMED BY: CB [facility] Nelcys2535 [facility] [id number] (85209) ALT (SGPT) 16 [iU]/L (Normal) Range: 0-32 [...] Glucose, Serum 177 mg/dL (Abnormal) Range: 65-99 27-Myl-825895:27 CBC with auto diff Comments: PATIENT NOT FASTINGPERFORMED BY: [facility] Wzutcz4292 [facility] [id number] Information: [id number] (01686) Immature Grans (Abs) 0.0 {x10E3/uL} (Normal) Range: [...] (Normal) Range: 3.4-10.8 :04 HgA1C , Office (26723) HgA1C , Office 6.3 % (Normal) Range: 4.6 - 7.1 :04 Blood Glucose , Office (03703) Blood Glucose , Office 131 (Normal) :21 CBC W/Diff, Automated Comments: Test performed at:[facility] Khthewince8501 [place] [address] Absolute Lymph 3.64 {X10_3/ul} (Normal) Range: 0.83-4.51 [...] :21 Comprehensive Metabolic Profil Comments: Test performed at:[facility] Pshxucfekq7262 [facility] [place], [place] [address] GAP 9 (Normal) Range: 5-15 CO2 27.0 [...] Comments: Please note revised CREATININE reference range trizhrdde07/22/2015. BUN 16 mg/dL (Normal) Range: 7-18 GLU 100 mg/dL (Normal) Range: 70-110 38-Eix-65932:45 Basic Metabolic Profile (BMP) Comments: Test performed at:[facility] Xomoowokbe5432 [facility] HospitalLottie [place], [place] [address] GAP 11 (Normal) Range: 5-15 CO2 22.0 [...] 126 mg/dLsuggests DIABETES MELLITUS per A.D.A. criteria. 20-Ska-53152:45 CBC W/Diff, Automated Comments: Test performed at:[facility] Wvqxjfixzl1654 [place] [address] Absolute Lymph 2.61 {X10_3/ul} (Normal) [...] Range: 4.4-11.0 :45 Lipase Comments: Test performed at:[facility] Ajmwcygqdv[address] [place] [address] LIPASE 229 U/L (Normal) Range: 70-290 :45 Liver Profile Comments: Test performed at:[facility] [address]vsqjsawzh[address] [place] [address] 775141 D BILI 0.11 mg/dL (Normal) Range: 0.00-0.30 T BILI 0.60 mg/dL (Normal) Range: 0.20-1.00 ALT 22 U/L (Normal) Range: 12-78 ALK P 103 U/L (Normal) Range: 50-136 AST 19 U/L (Normal) Range: 15-37 GLOB 5.3 g/dL (Abnormal) Range: 2.7-4.2 ALB 4.0 g/dL (Normal) Range: 3.4-5.0 T PROT 9.3 g/dL (Abnormal) Range: 6.4-8.2 :04 HgA1C , Office (26913) HgA1C , Office 6.2 % (Normal) Range: 4.6 - 7.1 :04 Blood Glucose , Office (49788) Blood Glucose , Office 124 (Normal) 20-Onv-499002:39 CBC With Differential/Platelet Comments: PATIENT WAS FASTINGPERFORMED BY: [facility] Ntmmdj7375 [facility] [id number] Information: [id number] Immature Grans (Abs) 0.0 {x10E3/uL} (Normal) Range: [...] 3.77-5.28 WBC 8.3 {x10E3/uL} (Normal) Range: 3.4-10.8 53-Wrx-132351:39 Comp. Metabolic Panel (14) Comments: PATIENT WAS FASTINGPERFORMED BY: LabCoSt. [facility] Rehabilitation CenterRdvrqi1391 [facility] [id number] ALT (SGPT) 14 [iU]/L (Normal) Range: 0-32 [...] Glucose, Serum 88 mg/dL (Normal) Range: 65-99 91-Len-942747:39 Lipid Panel With LDL/HDL Comments: PATIENT WAS FASTINGPERFORMED BY: [facility] [id number] Ratio LDL/HDL Ratio 3.2 {ratio_units} (Normal) Range: [...] Randm Ur Comments: PATIENT WAS FASTINGPERFORMED BY: [facility] [place] [id number] Microalb/Creat Ratio 9.6 {mg/g_creat} (Normal) Range: 0.0-30.0 Microalbumin, Urine 25.3 ug/mL (Abnormal) Range: 0.0-17.0 Creatinine, Urine 263.9 mg/dL (Normal) Range: 15.0-278.0 58-Hru-463427:39 Microscopic Examination Comments: PATIENT WAS FASTINGPERFORMED BY: [facility] ServicesCibola General HospitalKkhihe4312 [facility] [id number] Bacteria Few (Normal) Mucus Threads Present (Normal) Epithelial Cells (non 0-10 {/hpf} Range: 0 - 10 renal) (Normal) RBC 0-2 {/hpf} (Normal) Range: 0 - 2 WBC 11-30 {/hpf} Range: 0 - 5 (Abnormal) TSH 2.990 {uIU/mL} Comments: PATIENT WAS FASTINGPERFORMED BY: [employer] Injnwi0900 [facility] [id number] 5:39 (Normal) Range: 0.450-4.500 :39 Urinalysis, Complete Comments: PATIENT WAS FASTINGPERFORMED BY: [employer] Fanwards [facility] [id number] Microscopic Examination See below: (Normal) Comments: Microscopic was indicated and was performed. Nitrite, Urine Negative (Normal) Urobilinogen,Semi-Qn 0.2 mg/dL (Normal) Range: 0.0-1.9 Bilirubin Negative (Normal) Occult Blood Negative (Normal) Ketones Negative (Normal) Glucose Negative (Normal) Protein Negative (Normal) WBC Esterase 1+ (Abnormal) Appearance Clear (Normal) Urine-Color Yellow (Normal) pH 5.0 (Normal) Range: 5.0-7.5 Specific Martinez 1.025 (Normal) Range: 1.005-1.030 Vitamin D, 25-Hydroxy 85.8 ng/mL (Normal) Comments: PATIENT WAS FASTINGPERFORMED BY: [facility] Pzmpij3580 [facility] [id number] 5:39 Range: 30.0-100.0 Comments: Vitamin D deficiency has been defined by the [place] ofMedicine and an Endocrine Society practice guideline as alevel of serum 25-OH vitamin D less than 20 ng/mL (1,2).The Endocrine Society went on to further define vitamin Dinsufficiency as a level between 21 and 29 ng/mL (2).1. IOM ([place] of [place]). 2010. Dietary reference intakes for calcium and D. Real [place]: The National Academies Press.2. Mekhi MF, Dee Dee HADDAD, Fransisco HERNDON, et al. Evaluation, treatment, and prevention of vitamin D deficiency: an Endocrine Society clinical practice guideline. JCEM. 2010; 96(7):1911-30. :49 CBC W/Diff, Automated Comments: Test performed at:[facility] [address]zaxqfuryx[address] [place] [address] Absolute Lymph 3.72 {X10_3/ul} (Normal) Range: 0.83-4.51 [...] :49 Comprehensive Metabolic Profil Comments: Test performed at:[facility] Zyejypcqvx6201 [place] [address] GAP 7 (Normal) Range: 5-15 [...] 126 mg/dLsuggests DIABETES MELLITUS per A.D.A. criteria. 5-Hlf-967766:31 Sed Rate Erythrocyte (90268) Comments: PATIENT NOT FASTINGPERFORMED BY: [facility] Luylci4970 [facility] [id number] Sedimentation Rate-Westergren 33 mm/h (Normal) Range: 0-40 1-Oil-630797:31 METABOLIC PANEL, COMPREHENSIVE Comments: PATIENT NOT FASTINGPERFORMED BY: CHARLES Web Geo ServicesCibola General HospitalNmqylj5956 [facility] [id number] (43816) ALT (SGPT) 14 [iU]/L (Normal) Range: 0-32 [...] Glucose, Serum 107 mg/dL (Abnormal) Range: 65-99 5-Xrq-707641:31 CBC W/AUTO DIFF WBC Comments: PATIENT NOT FASTINGPERFORMED BY: Web Geo ServicesSt. Lawrence Rehabilitation CenterWlupyw9634 [facility] [id number] Information: [id number] (87055) Immature Grans (Abs) 0.0 {x10E3/uL} (Normal) Range: [...] (Normal) Range: 3.4-10.8 :18 HgA1C , Office (39349) HgA1C , Office 6.2 % (Normal) Range: 4.6 - 7.1 :18 Blood Glucose , Office (87126) Blood Glucose , Office 131 (Normal) :12 CBC W/AUTO DIFF WBC Comments: PATIENT WAS FASTINGPERFORMED BY: LabCoSt. Lawrence Rehabilitation CenterMiazrv6543 [facility] [id number] Information: [id number] (52922) Immature Grans (Abs) 0.0 {x10E3/uL} (Normal) Range: [...] 3.77-5.28 WBC 6.4 {x10E3/uL} (Normal) Range: 3.4-10.8 16-Wpa-22525:12 METABOLIC PANEL, COMPREHENSIVE Comments: PATIENT WAS FASTINGPERFORMED BY: LabCoSt. [facility] Rehabilitation CenterKyzply1735 [facility] [id number] (63470) ALT (SGPT) 28 [iU]/L (Normal) Range: 0-32 [...] mg/dL (Normal) Range: 65-99 :12 LIPID PANEL (83272) Comments: PATIENT WAS FASTINGPERFORMED BY: LabCoSt. [facility] Rehabilitation CenterRqhooo9100 [facility] [id number] LDL/HDL Ratio 1.9 {ratio_units} (Normal) Range: 0.0-3.2 [...] (Normal) Range: 100-199 :44 HgA1C , Office (25268) HgA1C , Office 6.1 % (Normal) Range: 4.6 - 7.1 :24 CBCD ALC 2.61 {X10_3/ul} (Normal) Range: 0.83-4.51 [...] 4.2-5.4 WBC 4.5 K/mm3 (Normal) Range: 4.4-11.0 0-Ldi-398326:24 CMP GAP 5 (Normal) Range: 5-15 CO2 [...] (Normal) Range: 70-110 :36 HgA1C , Office (76393) HgA1C , Office 7.5 % (Abnormal) Range: 4.6 - 7.1 :36 Blood Glucose , Office (38858) Blood Glucose , Office 150 (Normal) 9-Tle-429557:05 CALCIFIDIOL (74302) VIT D 25 Comments: PATIENT WAS FASTINGPERFORMED BY: [employer]6370 [facility]UNC [facility] [id number] Vitamin D, 25-Hydroxy 75.4 ng/mL (Normal) Range: 30.0-100.0 Comments: Vitamin D deficiency has been defined by the [place] of[place]icine and an Endocrine Society practice guideline as alevel of serum 25-OH vitamin D less than 20 ng/mL (1,2).The Endocrine Society went on to further define vitamin Dinsufficiency as a level between 21 and 29 ng/mL (2).1. IOM ([place] of [place]). 2010. Dietary reference intakes for calcium and D. Real [place]: The National Academies Press.2. Mekhi MF, Dee Dee [place], Fransisco HERNDON, et al. Evaluation, treatment, and prevention of vitamin D deficiency: an Endocrine Society clinical practice guideline. JCEM. 2010; 96(7):1911-30. :05 LIPID PANEL (49058) Comments: PATIENT WAS FASTINGPERFORMED BY: [employer]6370 [facility] [id number] Information: [id number] LDL/HDL Ratio 3.4 {ratio_units} (Abnormal) Range: 0.0-3.2 [...] Cholesterol, Total 232 mg/dL (Abnormal) Range: 100-199 20-Oqf-330147:51 CBCD ALC 3.00 {X10_3/ul} (Normal) Range: 0.83-4.51 [...] 4.2-5.4 WBC 6.9 K/mm3 (Normal) Range: 4.4-11.0 51-Tyb-636710:51 CMP GAP 5 (Normal) Range: 5-15 CO2 [...] mg/dLsuggests DIABETES MELLITUS per A.D.A. criteria. :52 EJXHN-RMTKBYJOFED-MVYPP (05811) Comments: PATIENT NOT FASTINGPERFORMED BY: MagnasenseCoCibola General HospitalUxnuwi4263 Aleman Croak.itUNC [facility] Appal[facility] [id number] AFP, Serum, Tumor Marker 1.9 ng/mL (Normal) Range: 0.0-8.3 Comments: Aric ECLIA methodology :52 PTT (Activated Partial Comments: PATIENT NOT FASTINGPERFORMED BY: [employer]Co Fanwards Aleman Croak.itUNC Health Appalach[facility] [id number] Thromboplastin Time) (60264) aPTT 28 {sec} (Normal) Range: 24-33 Comments: This test has not been validated for monitoring unfractionated heparintherapy. aPTT-based therapeutic ranges for unfractionated heparintherapy have not been established. For general guidelines onHeparin monitoring, refer to the [facility] Directory of Services. 53-Aqx-43073:52 PT (Prothrobim Time) Comments: PATIENT NOT FASTINGPERFORMED BY: [place] 7453370 [facility] [id number] Information: [id number] (04701) Prothrombin Time 11.1 {sec} (Normal) Range: 9.1-12.0 INR 1.1 (Normal) Range: 0.8-1.2 Comments: Reference interval is for non-anticoagulated patients. . Suggested INR therapeutic range for Vitamin K anta gonist therapy: Standard Dose (moderate intensity therapeutic range): 2.0 - 3.0 Higher intensity therapeutic range 2.5 - 3.5 15-Tsp-541559:05 Microscopic Examination Comments: PATIENT WAS FASTINGPERFORMED BY: [facility]6370 [facility] [id number] Bacteria Few (Normal) Mucus Threads Present (Normal) Epithelial Cells (non renal) 0-10 {/hpf} (Normal) Range: 0 - 10 RBC 0-3 {/hpf} (Normal) Range: 0 - 3 Comments: Effective January 10, 2014 the reference interval for RBC will be changing to: 0 - 2 /hpf. WBC 11-30 {/hpf} (Abnormal) Range: 0 - 5 [id number] Vitamin D Hydroxy ([id number]) Comments: PATIENT WAS FASTINGPERFORMED BY: [facility] [facility] [id number] Vitamin D, 25-Hydroxy 16.4 ng/mL (Abnormal) Range: 30.0-100.0 Comments: Vitamin D deficiency has been defined by the [place] and an Endocrine Society practice guideline as alevel of serum 25-OH vitamin D less than 20 ng/mL (1,2).The Endocrine Society went on to further define vitamin Dinsufficiency as a level between 21 and 29 ng/mL (2).1. IOM ([place] of [employer]). 2010. Dietary reference intakes for calcium and D. Real [place]: The National Academies Press.2. Mekhi MF, Dee Dee HADDAD, Fransisco HERNDON, et al. Evaluation, treatment, and prevention of vitamin D deficiency: an Endocrine Society clinical practice guideline. JCEM. 2010; 96(7):6421-30. TSH (63589) Comments: PATIENT WAS FASTINGPERFORMED BY: Dnevnik70 CloudianUNC Health Appal[facility] [id number] TSH 2.300 {uIU/mL} (Normal) Range: 0.450-4.500 URINALYSIS, W/ MICRO (21850) Comments: PATIENT WAS FASTINGPERFORMED BY: VastrmCritical access hospital [id number] Microscopic Examination See below: (Normal) Nitrite, Urine Negative (Normal) Urobilinogen,Semi-Qn 0.2 mg/dL (Normal) Range: 0.0-1.9 Bilirubin Negative (Normal) Ketones Negative (Normal) Occult Blood Negative (Normal) Glucose Negative (Normal) Protein Negative (Normal) WBC Esterase 2+ (Abnormal) Appearance Clear (Normal) Urine-Color Yellow (Normal) pH 5.5 (Normal) Range: 5.0-7.5 Specific Martinez 1.020 (Normal) Range: 1.005-1.030 MICROALBUMIN: CREATININE RATIO Comments: PATIENT WAS FASTINGPERFORMED BY: Dnevnik70 AlemanAmnisCritical access hospital [id number] (01125) AND (04404) Microalb/Creat Ratio 17.6 {mg/g_creat} (Normal) Range: 0.0-30.0 Microalbumin, Urine 23.6 ug/mL (Abnormal) Range: 0.0-17.0 Creatinine, Urine 134.3 mg/dL (Normal) Range: 15.0-328.0 METABOLIC PANEL, COMPREHENSIVE Comments: PATIENT WAS FASTINGPERFORMED BY: Dnevnik70 MLW SquaredCritical access hospital [id number] (20734) ALT (SGPT) 32 [iU]/L (Normal) Range: 0-32 [...] Glucose, Serum 131 mg/dL (Abnormal) Range: 65-99 20-Pec-85818:00 LIPID PANEL (11471) Comments: PATIENT WAS FASTINGPERFORMED BY: LabCoSt. Lawrence Rehabilitation CenterIdnhty1593 [facility] [id number] LDL/HDL Ratio 2.8 {ratio_units} (Normal) Range: 0.0-3.2 [...] MANUAL DIFF Comments: PATIENT WAS FASTINGPERFORMED BY: LabMunson Healthcare [facility]ist[facility] Hospital6370 [facility] [id number] Information: [id number] (48462) Immature Grans (Abs) 0.0 {x10E3/uL} (Normal) Range: [...] (Normal) Range: 3.4-10.8 :55 HgA1C , Office (56301) HgA1C , Office 6.6 % (Normal) Range: 4.6 - 7.1 :55 Blood Glucose , Office (01932) Blood Glucose , Office 169 (Normal) :22 HgA1C , Office (75836) HgA1C , Office 6.3 % (Normal) Range: 4.6 - 7.1 :22 Blood Glucose , Office (52367) Blood Glucose , Office 131 (Normal) 36-Oeb-013092:16 TSH (73389) Comments: PATIENT WAS FASTINGPERFORMED BY: Web Geo ServicesSt. Lawrence Rehabilitation CenterSnlcvg6733 [facility] [id number] TSH 2.790 {uIU/mL} (Normal) Range: 0.450-4.500 19-Pgt-469126:16 Lipid Panel (07011) Comments: PATIENT WAS FASTINGPERFORMED BY: Jelastic Hcwaza4680 [facility] [id number] Information: ADD [id number] AND DRAW FEE 99 6660 LDL/HDL Ratio 2.8 {ratio_units} (Normal) Range: 0.0-3.2 LDL Cholesterol Calc 130 mg/dL (Abnormal) Range: 0-99 VLDL Cholesterol Daniel 30 mg/dL (Normal) Range: 5-40 HDL Cholesterol 47 mg/dL (Normal) Comments: According to ATP-III Guidelines, HDL-C >59 mg/dL is considered anegative risk factor for CHD. Triglycerides 151 mg/dL (Abnormal) Range: 0-149 Cholesterol, Total 207 mg/dL (Abnormal) Range: 100-199 8-Lgi-555109:34 Microscopic Examination Comments: PATIENT NOT FASTINGPERFORMED BY: Web Geo ServicesSt. Lawrence Rehabilitation CenterMlsmfp0271 [facility] [id number] Bacteria None seen (Normal) Mucus Threads Present (Normal) Epithelial Cells (non renal) 0-10 {/hpf} (Normal) Range: 0 - 10 RBC None seen {/hpf} (Normal) Range: 0 - 3 WBC 11-30 {/hpf} (Abnormal) Range: 0 - 5 1-Gbi-868483:34 TSH (49672) Comments: PATIENT NOT FASTINGPERFORMED BY: Web Geo ServicesSt. Lawrence Rehabilitation CenterSvicbj9492 [facility] [id number] TSH 2.010 {uIU/mL} (Normal) Range: 0.450-4.500 :34 URINALYSIS, W/ MICRO (57201) Comments: PATIENT NOT FASTINGPERFORMED BY: Web Geo ServicesSt. Lawrence Rehabilitation CenterEjecfi3687 [facility] [id number] Microscopic Examination See below: (Normal) Nitrite, Urine Negative (Normal) Bilirubin Negative (Normal) Urobilinogen,Semi-Qn 0.2 mg/dL (Normal) Range: 0.0-1.9 Occult Blood Negative (Normal) Glucose Negative (Normal) Ketones Negative (Normal) Protein Negative (Normal) WBC Esterase Trace (Abnormal) Appearance Clear (Normal) Urine-Color Yellow (Normal) pH 5.5 (Normal) Range: 5.0-7.5 Specific Martinez 1.020 (Normal) Range: 1.005-1.030 :34 MICROALBUMIN: CREATININE RATIO Comments: PATIENT NOT FASTINGPERFORMED BY: Web Geo ServicesSt. Lawrence Rehabilitation CenterGunptl9172 [facility] [id number] (92662) AND (63632) Microalb/Creat Ratio 4.2 {mg/g_creat} (Normal) Range: 0.0-30.0 Microalbumin, Urine 6.3 ug/mL (Normal) Range: 0.0-17.0 Creatinine, Urine 150.8 mg/dL (Normal) Range: 15.0-278.0 :34 METABOLIC PANEL, COMPREHENSIVE Comments: PATIENT NOT FASTINGPERFORMED BY: MagnasenseMunson Healthcare Man[facility] Hospital6370 [facility] [id number] (53247) ALT (SGPT) 73 [iU]/L (Abnormal) Range: 0-32 [...] Glucose, Serum 136 mg/dL (Abnormal) Range: 65-99 6-Clk-229786:34 LIPID PANEL (34116) Comments: PATIENT NOT FASTINGPERFORMED BY: Dnevnik70 [facility] [id number] LDL/HDL Ratio 2.5 {ratio_units} (Normal) Range: 0.0-3.2 HDL Cholesterol 44 mg/dL (Normal) Comments: According to ATP-III Guidelines, HDL-C >59 mg/dL is considered anegative risk factor for CHD. LDL Cholesterol Calc 108 mg/dL (Abnormal) Range: 0-99 VLDL Cholesterol Daniel 51 mg/dL (Abnormal) Range: 5-40 Triglycerides 254 mg/dL (Abnormal) Range: 0-149 Cholesterol, Total 203 mg/dL (Abnormal) Range: 100-199 4-Ood-714625:34 CBC WITH MANUAL DIFF Comments: PATIENT NOT FASTINGPERFORMED BY: Web Geo ServicesSt. Lawrence Rehabilitation CenterQrlhdi8611 [facility] [id number] Information: [id number] (52323) Immature Grans (Abs) 0.0 {x10E3/uL} (Normal) Range: [...] (Normal) Range: 3.4-10.8 :28 HgA1C , Office (17453) HgA1C , Office 7.1 % (Normal) Range: 4.6 - 7.1 :28 Blood Glucose , Office (73431) Blood Glucose , Office 144 (Normal) 38-Zzp-734981:05 HPV automatic Comments: Source.............Cervical;EndocervicalNo. of containers..01 CYTYC Thin Prep VialPATIENT NOT FASTINGPERFORMED BY: WB [facility] [address] [place] [id number] BY: =G L (40500) abC[address] [place] [id number] Information: [id number] HPV, high-risk Negative Comments: This high-risk HPV [...] of atrophy.V 72.31 ; Routine gynecological examinationSnathanael Chan, Director Home Health (ASCP) 36-Kou-99155:55 CBCD ANC 4.2 3/uL (Normal) Range: 2.0-7.7 [...] SED tSEDRATE 28 mm/h (Normal) Range: 0-30 39-Rzd-382688:24 Rapid Flu (28727 x 2) Influenza A Ag negative (Normal) 68-Yqn-90841:57 HEPATOBILLIARY IMG W/PHARM INT Radiology Report See [...] ecystokinin (0.02 ug/kg) was administered intravenously over q25-lfseev period. The post CCK gallbladder ejection fraction gzadbrlahicj53 minutes following Cholecystokinin administration was noted to [...] to high pretest likelihoods of hepatobiliary illness. (Taylor et al, Journal of Nuclear Medicine 32:1695, 1990). Sig ryley:Gage Gandhi M.D.June 24, 2012 at 9:54:02 PM [id number] Signed RB/RB If you are the referring physician and would like to consult with theradiologist who provided this inter pretation, please contact Vincent Frost at [phone]. If this radiologist is unavailable, you will bedirected to another radiologist to assist. If you are a patient with a question regarding this report, pleasecontactyour referring physician directly. Professional Interpretation Provided By: [employer], Phone , These documents contain legally protected [...] the return or destructionofthese documents. Dictated on 06/24/12823 by Gage Gandhi DOTranscribed on 06/24/122203 by ITS IMPORTSign by Gage Gandhi DO on 06/24/122204 Sign by: Gage Gandhi DO :09 HgA1C , Office (41663) HgA1C , Office 6.6 % (Normal) Range: 4.6 - 7.1 04-Owy-77663:09 Blood Glucose , Office (45544) Blood Glucose , Office 141 (Normal) :29 Blood Glucose , Office (14328) Blood Glucose , Office 113 (Normal) :29 HgA1C , Office (57857) HgA1C , Office 6.8 % (Normal) Range: 4.6 - 7.1 :44 LIPID PANEL (61778) Comments: PATIENT WAS FASTINGPERFORMED BY: LabCoSt. Lawrence Rehabilitation CenterGhollv5004 [facility] [id number] Information: [id number] LDL/HDL Ratio 2.2 {ratio_units} (Normal) Range: 0.0-3.2 LDL Cholesterol Calc 101 mg/dL (Abnormal) Range: 0-99 VLDL Cholesterol Daniel 40 mg/dL (Normal) Range: 5-40 HDL Cholesterol 46 mg/dL (Normal) Comments: According to ATP-III Guidelines, HDL-C >59 mg/dL is considered anegative risk factor for CHD. Triglycerides 198 mg/dL (Abnormal) Range: 0-149 Cholesterol, Total 187 mg/dL (Normal) Range: 100-199 :47 HgA1C , Office (86872) HgA1C , Office 6.3 % (Normal) Range: 4.6 - 7.1 :47 Blood Glucose , Office (69351) Blood Glucose , Office 183 (Normal) :15 [...] mg/dL suggests IMPAIRED HOMEOSTASIS per A.D.A. criteria. :15 COMPLETE UA Comments: appt 08/08/11 MUCUS, URINE [...] (Normal) Range: 0.358-3.74 :36 HgA1C , Office (31620) HgA1C , Office 5.9 % (Normal) Range: 4.6 - 7.1 :36 Blood Glucose , Office (43762) Blood Glucose , Office 127 (Normal) :00 LISANDRO CULTURE-OTHER (61189) Comments: PATIENT NOT FASTINGPERFORMED BY: CHARLES [facility] Ktsvaa6367 [facility] [id number] Result 1 RRF (Normal) Comments: Routine respiratory thai Upper Respiratory Culture Final report (Normal) :14 Blood Glucose , Office (27281) Blood Glucose , Office 119 (Normal) :14 HgA1C , Office (96763) HgA1C , Office 6.1 % (Normal) Range: [...] 11.6-14.6 WBC 5.8 K/mm3 (Normal) Range: 4.4-11.0 :37 COMP METABOLIC A/G 0.9 {RATIO} (Normal) Range: [...] T PROT 7.7 g/dL (Normal) Range: 6.4-8.2 3:00 ANEX PANEL ANTI-COTTER AB 5 AU/mL (Normal) VISUAL LEAD AB 29 AU/mL (Normal) :00 ANTI JO1 ANTI KERRI 37 AU/mL (Normal) :00 ANTI SCL 70 ANTI-SCL 70 104 AU/mL (Abnormal) 3:00 ANTI-dsDNA AB 4 {IU/mL} (Normal) :00 CBCD ABSOLUTE NEUT 2.9 3/uL (Normal) Range: [...] 4.4-11.0 : CENTROMERE B 5 AU/mL (Normal) COMP C3 6452 179 (Normal) Range: 90-180 Comments: INFCE Result Units: mg/dL AdultPerformed at: - LabCo[address] [id number] Director: Leatha Mark MD, Phone: [phone] COMP C4 1836 32 (Normal) Range: 9-36 Comments: INFCE Result Units: mg/dL Adult : COMP METABOLIC ALK P 74 U/L (Normal) [...] GLUCOSE, UR SeeNote (Normal) Comments: Result: NEGATIVE : PROT+CRE RATIO PROT:CRE RATIO 68 {mg/g_CRE} (Normal) Range: 0-200 PROTEIN,UR.RAN. 11.4 mg/dL (Normal) UR CREAT 166.0 mg/dL (Normal) : SJOGREN'S SSA 23 AU/mL (Normal) : SJOGRENS SSB SJOGREN'S SSB 11 AU/mL (Normal) : VIT D,25 55711 32.4 ng/mL (Normal) Range: 32.0-100.0 Comments: Recent studies consider the lower limit of 32.0 ng/mL to ree threshold for optimal health.Zbigniew CAMACHO. J Nutr. 2004;135(2):317-22. 96-Veg-208543:51 DEXA BONE DENSITY STUDY (HP) Radiology Report See Note (Normal) Comments: Exam Number: [id number] CLINICAL:The patient is a 49-year-old female who is postmenopausal.Menopause at 42 years old. No hormone replacement therapy. EXAMINATION:DUAL ENERGY X-RAY ABSORPTIOM ETRY / DEXA. TECHNIQUE:Bone Density Measurements (BMD) of lumbar spine and bilateral hipswere obtained using a Badge scanner.. COMPARISON:July 09, 2004 FINDINGS: Lumbar Spine [...] Foundation [email or web address] Reported By: BASHIR CARLSON M.D. :44 Protein Electro, Random Urine Comments: PERFORMED BY: [employer]6370 [facility] [id number] M-Sukhwinder, % Not Observed % (Normal) Please note: SPRCS (Normal) Comments: Protein electrophoresis scan will follow via computer, mail, orcourier delivery. Xdawm-7-Twjrhadt, U 15.7 % (Normal) Beta Globulin, U 17.7 % (Normal) Gamma Globulin, U 16.9 % (Normal) Albumin, U 47.5 % (Normal) Fuyjq-7-Weibujai, U 2.2 % (Normal) Protein,Total,Urine 23.0 mg/dL (Abnormal) Range: 0.0-15.0 :44 Protein Electro.,S Comments: PERFORMED BY: [employer]6370 Aleman Croak.itUNC Health Appalach[facility] [id number] Please note: SPRCS (Normal) Comments: Protein electrophoresis scan will follow via computer, mail, orcourier delivery. A/G Ratio 1.1 (Normal) Range: 0.7-2.0 Xqjgl-6-Loqynucf 0.9 g/dL (Normal) Range: 0.4-1.2 Beta Globulin 1.2 g/dL (Normal) Range: 0.6-1.3 Gamma Globulin 1.2 g/dL (Normal) Range: 0.5-1.6 Globulin, Total 3.6 g/dL (Normal) Range: 2.0-4.5 M-Sukhwinder Not Observed g/dL (Normal) Albumin 3.9 g/dL (Normal) Range: 3.2-5.6 Rfpnh-8-Ysccqqtx 0.2 g/dL (Normal) Range: 0.1-0.4 Protein, Total, Serum 7.5 g/dL (Normal) Range: 6.0-8.5 :34 MECCA-D 011240 MECCA-DIRECT SeeNote (Abnormal) Comments: Result: Positive 87-Aya-29989:34 ANTI-CCP 061008 5 {units} (Normal) Range: 0-19 Comments: Negative [...] mm/h (Normal) Range: 0-30 :34 HB CORE [id number] SeeNote (Normal) Comments: Result: NegativePerformed at: [address] [id number] Director: Leatha Mark MDPerformed at: [facility] [id number] Director: Al White MD :34 HBsAg 6510 [...] of antibody present. :34 HEP C AB 726176 <0.1 (Normal) Range: 0.0-0.9 Comments: Negative: < 0.8Indeterminate 0.8 - 0.9Positive: > 0.9.In order to reduce the incidence of a false positiveresult, the CDC recommends that all s/co ratiosbetween 1.0 and 10.9 be confirmed with additionalRIBA or PCR testing. :34 RHEUMATOID FAC < 10.0 {IU/mL} (Normal) :34 VIT D,25 84424 21.3 ng/mL (Abnormal) Range: 32.0-100.0 Comments: Recent studies consider the lower limit of 32.0 ng/mL to ree threshold for optimal health.Zbigniew CAMACHO. J Nutr. 2004;135(2):317-22. :31 Anti-dsDNA Antibodies Comments: PATIENT WAS FASTINGPERFORMED BY: Web Geo ServicesSt. Lawrence Rehabilitation CenterTcnccm9909 [facility] [id number] Information: [id number] Anti-DNA (DS) Ab Qn <1 {IU/mL} (Normal) Range: 0-9 Comments: Negative <5Equivocal 5 - 9Positive >9 : Written Authorization WAR (Normal) Comments: PATIENT WAS FASTINGPERFORMED BY: CHARLES Derbywire Ckfxue9404 Aleman Croak.itUNC Health Appalachian [id number] Comments: Written Authorization Received.Authorization received from DR CHANEL VARMA [id number] by Selma Ba 65-Cgk-014981:24 KNEE,4 OR MORE VIEWS (MT) Radiology Report See Note (Normal) Comments: Exam Number: [id number] LEFT KNEE HISTORYPain. Four views of the [...] BASHIR CARLSON M.D. :31 HEPATIC FUNCTION PANEL (50270) Comments: PATIENT WAS FASTINGPERFORMED BY: Jelasticrp Zpjxza9762 MLW SquaredCritical access hospital [id number] Bilirubin, Direct 0.14 mg/dL (Normal) Range: 0.00-0.40 :31 SED RATE ERYTHROCYTE (32258) Comments: PATIENT WAS FASTINGPERFORMED BY: Jelasticrp Ehletc1960 Aleman Spark EtailCritical access hospital [id number] Sedimentation Rate-Westergren 15 mm/h (Normal) Range: 0-30 :31 C-REACTIVE PROTEIN (44381) Comments: PATIENT WAS FASTINGPERFORMED BY: CB [facility] Anoejt1523 Aleman Spark EtailCritical access hospital [id number] C-Reactive Protein, Quant 11.2 mg/L (Abnormal) Range: 0.0-4.9 :31 TSH (57541) Comments: PATIENT WAS FASTINGPERFORMED BY: CB [facility] Uhvvyh9527 Aleman Croak.itUNC Health Appalachian [id number] TSH 1.970 {uIU/mL} (Normal) Range: 0.450-4.500 :31 RHEUMATOID FACTOR-QUANT (15783) Comments: PATIENT WAS FASTINGPERFORMED BY: LabMunson Healthcare [facility]istee Hospital6370 [facility] [id number] RA Latex Turbid. 6.8 {IU/mL} (Normal) Range: 0.0-13.9 MECCA (ANTINUCLEAR ANTIBODY) Comments: PATIENT WAS FASTINGPERFORMED BY: [place] 7453370 [facility] [id number] (50764) MECCA Direct Positive (Abnormal) : CBC WITH MANUAL DIFF Comments: PATIENT WAS FASTINGPERFORMED BY: [facility]6370 [facility] [id number] Information: [id number] (42654) Baso (Absolute) 0.1 {x10E3/uL} (Normal) Range: 0.0-0.2 [...] PANEL, COMPREHENSIVE Comments: PATIENT WAS FASTINGPERFORMED BY: LabCoSt. Lawrence Rehabilitation CenterTjobpi7642 [facility] [id number] (26552) Alkaline Phosphatase, S 85 [iU]/L (Normal) Range: [...] Glucose, Serum 110 mg/dL (Abnormal) Range: 65-99 57-Leq-653944:25 Blood Glucose , Office (25304) Blood Glucose , Office 90 (Normal) 22-Mgq-206250:25 HgA1C , Office (04775) HgA1C , Office 6.5 % (Normal) Range: 4.6 - 7.1 :40 Blood Glucose , Office (09934) Blood Glucose , Office 100 (Normal) :40 HgA1C , Office (46813) HgA1C , Office 5.7 % (Normal) Range: 4.6 - 7.1 :08 HEPATIC FUNCTION PANEL Comments: repeat Aug; PATIENT NOT FASTINGPERFORMED BY: [employer] Pvibpu8981 [facility] [id number] (88049) Alkaline Phosphatase, S 84 [iU]/L (Normal) Range: 25-150 ALT (SGPT) 35 [iU]/L (Normal) Range: 0-40 AST (SGOT) 32 [iU]/L (Normal) Range: 0-40 Albumin, Serum 4.3 g/dL (Normal) Range: 3.5-5.5 Bilirubin, Direct 0.10 mg/dL (Normal) Range: 0.00-0.40 Bilirubin, Total 0.4 mg/dL (Normal) Range: 0.1-1.2 Protein, Total, Serum 7.4 g/dL (Normal) Range: 6.0-8.5 36-Rtk-912046:33 Creatinine Clearance Comments: PERFORMED BY: [employer] Grjrrt4546 CloudianUNC Health Appal[facility] [id number] Creatinine Clearance 119 mL/min (Normal) Range: 88-128 [...] present. Additional information may be found [email or web address]. 36-Qjn-076097:33 Hepatic Function Panel (7) Comments: Clinical Information: 04/21@630AM 04/22@630AM PERFORMED BY: VastrmCritical access hospital [id number] Albumin, Serum 4.5 g/dL (Normal) Range: 3.5-5.5 Alkaline Phosphatase, S 83 [iU]/L (Normal) Range: 25-150 ALT (SGPT) 54 [iU]/L (Abnormal) Range: 0-40 AST (SGOT) 49 [iU]/L (Abnormal) Range: 0-40 Bilirubin, Direct 0.11 mg/dL (Normal) Range: 0.00-0.40 Bilirubin, Total 0.4 mg/dL (Normal) Range: 0.1-1.2 Protein, Total, Serum 7.6 g/dL (Normal) Range: 6.0-8.5 :33 Microalbumin, 24 hr Urine Comments: PERFORMED BY: VastrmCritical access hospital [id number] Microalbumin, Urine 3.5 ug/mL (Normal) Range: 0.0-17.0 Microalbumin,mg/day 5.3 {mg/day} (Normal) 99-Opv-802195:08 Blood Glucose , Office (83943) Blood Glucose , Office 119 (Normal) 27-Vpl-733413:07 HgA1C , Office (63464) HgA1C , Office 6.1 % (Normal) Range: 4.6 - 7.1 :51 HEPATIC FUNCTION PANEL Comments: PATIENT NOT FASTINGClinical Information: 75G DRAWN @ 1145AM PERFORMED BY: VastrmCritical access hospital [id number] (26595) Albumin, Serum 4.7 g/dL (Normal) Range: 3.5-5.5 Alkaline Phosphatase, S 89 [iU]/L (Normal) Range: 25-150 ALT (SGPT) 54 [iU]/L (Abnormal) Range: 0-40 AST (SGOT) 43 [iU]/L (Abnormal) Range: 0-40 Bilirubin, Direct 0.11 mg/dL (Normal) Range: 0.00-0.40 Bilirubin, Total 0.4 mg/dL (Normal) Range: 0.1-1.2 Protein, Total, Serum 7.8 g/dL (Normal) Range: 6.0-8.5 01-Sfj-444636:51 Glucose, PP/2 Hour (10760) Comments: PATIENT NOT FASTINGPERFORMED BY: Revee [facility] [id number] Glucose, Two-Hour Postprandial 173 mg/dL (Abnormal) Range: 65-139 :25 Lipid Panel (65902) Comments: PATIENT WAS FASTINGPERFORMED BY: Revee [facility] [id number] Cholesterol, Total 177 mg/dL (Normal) Range: 100-199 HDL Cholesterol 37 mg/dL (Abnormal) Comments: According to ATP-III Guidelines, HDL-C >59 mg/dL is considered anegative risk factor for CHD. LDL Cholesterol Calc 84 mg/dL (Normal) Range: 0-99 LDL/HDL Ratio 2.3 {ratio_units} (Normal) Range: 0.0-3.2 Triglycerides 280 mg/dL (Abnormal) Range: 0-149 VLDL Cholesterol Daniel 56 mg/dL (Abnormal) Range: 5-40 :25 CBC with manual diff (52844) Comments: PATIENT WAS FASTINGClinical Information: ADD 928237, [id number] PERFORMED BY: Revee [facility] [id number] Baso (Absolute) 0.0 {x10E3/uL} (Normal) Range: 0.0-0.2 [...] 11.7-15.0 WBC 6.6 {x10E3/uL} (Normal) Range: 4.0-10.5 :25 Metabolic Panel, Comprehensive Comments: PATIENT WAS FASTINGPERFORMED BY: LabCoSt. Lawrence Rehabilitation CenterCnndcw7226 [facility] [id number] (71254) A/G Ratio 1.4 (Normal) Range: 1.1-2.5 Albumin, [...] 143 mmol/L (Normal) Range: 135-145 12-Apr-20098:25 CALCIFEDIOL (85014) Comments: Draw aroun Apr 06 2009; PATIENT WAS FASTINGPERFORMED BY: LabMunson [facility] Hospital6370 [facility] [id number] Vitamin D, 25-Hydroxy 50.3 ng/mL (Normal) Range: 32.0-100.0 Comments: Recent studies consider the lower limit of 32.0 ng/mL to be athreshold for optimal health.Zbigniew CAMACHO. J Nutr. 2004;135(2):317-22. C DIF TOXIN See Note (Normal) Comments: C. DIFF TOXINS A&B NEGATIVE :10 35-Lkb-206051:10 CUL STOOL/SHIG CULTURE, STOOL See Note (Normal) Comments: No Salmonella, Shigella, Yersinia or Campylobacter isolated.No significant amount of Staphylococcus aureusor yeast-like organisms isolated. SHIGA-TOXIN See Note (Normal) Comments: SHIGA-TOXIN 1 & 2 SHIGA TOXIN 1 AND SHIGA TOXIN 2 NOT DETECTED 88-Pyh-151937:10 O AND P See Note (Normal) Comments: OVA AND PARASITES EXAM, ROUTINE These results were obtained using wet preparation(s) and trichrome stained smear. This test does not include testing for Crytosporidium parvum, Cyclospora, or Microspo ridia. TESTING PERFORMED AT [facility]. ORIGINAL REPORT ON FILE IN LAB CONTAINS ADDITIONAL TEST SITE INFORMATION. OVA/ PARASITES EXAM NO OVA, CYSTS, OR PARASITES FOUND. 85-Bwd-922902:10 OCCULT BLD,iFOB See Note (Normal) Comments: OCCULT BLOOD Negative 90-Fdp-020936:10 WBC,STOOL See Note (Normal) Comments: FECAL WBCs NONE SEEN 65-Ysh-232736:46 Celiac Disease Panel Comments: PERFORMED BY: MagnasenseMunson Healthcare Manist[facility] Hospital6370 [facility] [id number] Endomysial Antibody IgA Negative (Normal) Immunoglobulin A, [...] D, 25-Hydroxy 13.4 ng/mL Comments: PERFORMED BY: MagnasenseMunson Healthcare [facility] Hospital6370 [facility] [id number] 11:46 (Abnormal) Range: 32.0-100.0 Comments: Recent studies consider the lower limit of 32.0 ng/mL to be athreshold for optimal health.Zbigniew CAMACHO. J Nutr. 2004;135(2):317-22. 20-Apr-2008 C difficile Toxins A+B, Negative (Normal) Comments: PATIENT NOT FASTINGPERFORMED BY: [place] 7453370 [facility] [id number] 15:30 EIA 20-Apr-2008 Occult Blood, Stool, Negative (Normal) Comments: PATIENT NOT FASTINGPERFORMED BY: [address] [id number] 15:30 Guaiac 96-Bta-186433:30 Ova + Parasite Exam Comments: PATIENT NOT FASTINGPERFORMED BY: [address] [id number] Ova + Parasite Exam Final report (Normal) Comments: These results were obtained using wet preparation(s) and trichromestained smear. This test does not include testing for Cryptosporidiumparvum, Cyclospora, or Microsporidia. Result 1 NOCP (Normal) Comments: No ova, cysts, or parasites seen. 37-Yxg-805739:30 Stool Culture Comments: PATIENT NOT FASTINGClinical Information: SRC: STOOL PERFORMED BY: [address] [id number] Campylobacter Culture Final report (Normal) E coli Shiga Toxin EIA Negative (Normal) Result 1 NCI (Normal) Comments: No Campylobacter species isolated. Result 1 NSS (Normal) Comments: No Salmonella or Shigella recovered. Salmonella/Shigella Screen Final report (Normal) 46-Smc-566397:30 White Blood Cells (WBC), Comments: PATIENT NOT FASTINGPERFORMED BY: [address] [id number] Stool Result 1 NWBC (Normal) Comments: No white blood cells seen. White Blood Cells (WBC), Final report (Normal) Comments: Reference Range: None Seen Stool 08-Uxe-485943:01 CBC with manual diff (59516) Comments: PATIENT NOT FASTINGClinical Information: ADD DRAW FEE 005957 ADD J0 [id number] PERFORMED BY: [address] [id number] Baso (Absolute) 0.0 {x10E3/uL} (Normal) Range: 0.0-0.2 [...] 11.7-15.0 WBC 8.3 {x10E3/uL} (Normal) Range: 4.0-10.5 96-Vog-239069:01 Metabolic Panel, Comprehensive Comments: PATIENT NOT FASTINGPERFORMED BY: [facility]CoSt[facility] [id number] [id number] 32011) A/G Ratio 1.3 (Normal) Range: 1.1-2.5 Albumin, [...] Serum 104 mg/dL (Abnormal) Range: 65-99 If -Angolan >60 mL/min/1.73 Range: 60-128 (Normal) Comments: Note: [...] Sodium, Serum 142 mmol/L (Normal) Range: 135-145 0-Rkj-384202:30 ACUTE ABDOMEN, INC CHEST Radiology Report See Note (Normal) Comments: Exam Number: [id number] THREE VIEWS ABDOMEN CLINICAL STATEMENTGeneralized abdominal pain, [...] or abdomen. Reported By: TONO FONTANEZ M.D. 5-Qqt-985184:08 CBCD,SMEAR DIFF BAND 3 % (Normal) Range: [...] Plan of Care Name Dates Details Instructions Diabetes mellitus type 2, uncontrolled, without complications [...] uncontrolled, without complications Psoriatic arthropathy : Reviewed Head Cashier Letter Indication: Psoriatic arthropathy Hypertension, essential, benign : Diet, Exercise, and Wt loss Indication: Hypertension, essential, benign Hypertension, essential, benign : HTN/CAD Red Flags Indication: Hypertension, essential, benign Hypercholesteremia : Cholesterol mgmt Indication: Hypercholesteremia GERD (gastroesophageal reflux disease) : GERD Education Indication: GERD (gastroesophageal reflux disease) Encounter for gynecological examination without abnormal finding : *Well Female Maintenance ([facility]) Indication: Encounter for gynecological examination without abnormal finding Encounter for gynecological examination without abnormal finding : Pap/Pelvic/Bimanual/Rectal/Breast Exam was done. Indication: Encounter for gynecological examination without abnormal finding Hypertension, essential, benign : Reviewed Lab Indication: [...] essential, benign Hypertension, essential, benign : Reviewed Head Cashier Letter Indication: Hypertension, essential, benign Hypertension, essential, [...] Indication: Psoriatic arthropathy Psoriatic arthropathy : Reviewed Head Cashier Letter Indication: Psoriatic arthropathy Encounter for gynecological examination without abnormal finding : *Well Female Maintenance ([facility]) Indication: Encounter for gynecological examination without [...] uncontrolled, without complications Psoriatic arthropathy : Reviewed Head Cashier Letter Indication: Psoriatic arthropathy Hypercholesteremia : Cholesterol [...] (gastroesophageal reflux disease) Psoriatic arthropathy : Reviewed Head Cashier Letter Indication: Psoriatic arthropathy Hypertension, essential, benign [...] uncontrolled, without complications Psoriatic arthropathy : Reviewed Head Cashier Letter Indication: Psoriatic arthropathy GERD (gastroesophageal reflux [...] with no complications Psoriatic arthropathy : Reviewed Head Cashier Letter Indication: Psoriatic arthropathy Diabetes mellitus type [...] with no complications Psoriatic arthropathy : Reviewed Head Cashier Letter Indication: Psoriatic arthropathy Diabetes mellitus type [...] liver GERD (gastroesophageal reflux disease) : Reviewed Head Cashier Letter Indication: GERD (gastroesophageal reflux disease) Hypertension, [...] Indication: Fatty liver Psoriatic arthropathy : Reviewed Head Cashier Letter Indication: Psoriatic arthropathy Psoriatic arthropathy : [...] pain, acute, right upper quadrant : Reviewed Head Cashier Letter Indication: Abdominal pain, acute, right upper [...] Other abnormal glucose Fatty liver : Reviewed Head Cashier Letter Indication: Fatty liver Fatty liver : [...] Current Prescription(s) Indication: Psoriasis Psoriasis : Reviewed Head Cashier Letter Indication: Psoriasis GERD (gastroesophageal reflux disease) : GERD Education Indication: GERD (gastroesophageal reflux disease) Other abnormal glucose : FOLLOW UP IN 4 MONTHS Indication: Other abnormal glucose Psoriasis : Reviewed Head Cashier Letter Indication: Psoriasis Psoriasis : FOLLOW UP IN 1 MONTH Indication: Psoriasis Vitamin D deficiency, unspecified : Reviewed Lab Indication: Vitamin D deficiency, unspecified Psoriatic arthropathy : Reviewed Head Cashier Letter Indication: Psoriatic arthropathy Psoriatic arthropathy : [...] : Diarrhea Education Indication: Diarrhea Planned Observations CALCIFIDIOL (21816) VIT D 25Indication: Vitamin D deficiency, unspecified On: 81-Uby-792205:29 Request LIPOPROTEIN, BLD, BY NMR ([id number])Indication: Hypercholesteremia On: 55-Qmt-291280:29 Request HEPATIC FUNCTION PANEL (58124)Indication: Hypercholesteremia On: 26-Jvm-718063:29 Request Thin prep Pap (87870) (no STD testing)Indication: Encounter for gynecological examination without abnormal finding On: 50-Nxv-04238:06 Request HGB A1C (29410)Indication: Diabetes mellitus type 2, uncontrolled, without complications On: 14-Jan-20189:21 Request LIPID PANEL ([id number])Indication: Hypercholesteremia On: 14-Jan-20189:16 Request Urine Protein Electrophoresis (UPEP) (37062)Indication: Elevated serum globulin level On: 13-Oct-20179:23 Request METABOLIC PANEL, COMPREHENSIVE (92150)Indication: Hypertension, essential, benign On: 73-Tke-316744:35 Request LIPID PANEL (86002)Indication: Hypertension, essential, benign On: 69-Vyy-869307:34 Request CBC W/AUTO DIFF WBC (81011)Indication: Hypertension, essential, benign On: 77-Uvv-673473:34 Request URINALYSIS, W/ MICRO (61326)Indication: Diabetes mellitus type 2, uncontrolled, without complications On: 34 Request MICROALBUMIN: CREATININE RATIO (85013) AND (63442)Indication: Diabetes mellitus type 2, uncontrolled, without complications On: Request TSH ([id number])Indication: Diabetes mellitus type 2, uncontrolled, without complications On: Request CALCIFIDIOL (70279) VIT D 25Indication: Vitamin D deficiency, unspecified On: Request CALCIFIDIOL (55895) VIT D 25Indication: Vitamin D deficiency, unspecified On: 30 Request TSH (68516)Indication: Diabetes mellitus type 2, uncontrolled, without complications On: Request URINALYSIS, W/ MICRO (82250)Indication: Hypertension, essential, benign On: Request MICROALBUMIN: CREATININE RATIO (96512) AND (72687)Indication: Hypertension, essential, benign On: Request METABOLIC PANEL, COMPREHENSIVE (10210)Indication: Hypertension, essential, benign On: Request LIPID PANEL (40199)Indication: Hypercholesteremia On: Request CBC W/AUTO DIFF WBC (45487)Indication: Hypertension, essential, benign On: Request HPV automatic (73017)Indication: Screening for HPV (human papillomavirus) (Renamed from Encounter for screening for human papillomavirus (HPV)) On: 08-Wzy-260786:19 Request Thin prep Pap (40101) (no STD testing)Indication: Encounter for gynecological examination without abnormal finding On: 32-Hof-648860:00 Request CALCIFIDIOL (97626) VIT D 25Indication: Vitamin D deficiency, unspecified On: : Request TSH (00283)Indication: Diabetes mellitus type 2, uncontrolled, without complications On: : Request URINALYSIS, W/ MICRO (89465)Indication: Diabetes mellitus type 2, uncontrolled, without complications On: 4-Zqv-483126:00 Request MICROALBUMIN: CREATININE RATIO (96975) AND (77051)Indication: Diabetes mellitus type 2, uncontrolled, without complications On: 2-Tee-557365:00 Request METABOLIC PANEL, COMPREHENSIVE (89865)Indication: Diabetes mellitus type 2, uncontrolled, without complications On: 0-Bjm-807750:00 Request LIPID PANEL (94260)Indication: Hypercholesteremia On: 2-Fbl-717221:00 Request CBC W/AUTO DIFF WBC (51531)Indication: Diabetes mellitus type 2, uncontrolled, without complications On: 2-Hwp-958947: Request Thin prep Pap (65655) (no STD testing)Indication: Well woman exam On: :21 Request [id number]-[id number]-PKTVT (41254)Indication: Fatty liver On: :39 Request PT (Prothrobim Time) (60740)Indication: Fatty liver On: :39 Request CALCIFIDIOL (12669) VIT D 25Indication: Vitamin D deficiency, unspecified On: :38 Request LIPID PANEL (12245)Indication: Hypercholesteremia On: :38 Request TSH (25472)Indication: Diabetes mellitus type II, controlled, with no complications On: :38 Request URINALYSIS, W/ MICRO (30775)Indication: Hypertension, essential, benign On: :38 Request MICROALBUMIN: CREATININE RATIO (25282) AND (09113)Indication: Hypertension, essential, benign On: :38 Request METABOLIC PANEL, COMPREHENSIVE (20054)Indication: Hypertension, essential, benign On: :38 Request CBC W/AUTO DIFF WBC (25783)Indication: Hypertension, essential, benign On: :38 Request CALCIFEDIOL (33131)Indication: Vitamin D deficiency, unspecified On: :52 Request TSH (58933)Indication: Diabetes mellitus type II, controlled, with no complications On: :52 Request URINALYSIS, W/ MICRO (40609)Indication: Hypertension, essential, benign On: :52 Request MICROALBUMIN: CREATININE RATIO (62259) AND (40611)Indication: Hypertension, essential, benign On: :52 Request METABOLIC PANEL, COMPREHENSIVE (00379)Indication: Hypertension, essential, benign On: :52 Request CBC W/AUTO DIFF WBC (49023)Indication: Hypertension, essential, benign On: :52 Request LIPID PANEL (54603)Indication: Hypercholesteremia On: :52 Request FECAL OCCULT HGB ASSAY- tubes sent home (24933)Indication: Well woman exam On: :30 Request Thin prep Pap (23479)Indication: Well woman exam On: :30 Request Sed Rate Erythrocyte (31081)Indication: Diarrhea On: :22 Request Metabolic Panel, Comprehensive (55243)Indication: Diarrhea On: :22 Request CBC with manual diff (38974)Indication: Diarrhea On: :22 Request Rapid Strep Test, Office (28354)Indication: Pharyngitis, acute On: :47 Request Urine Protein Electrophoresis (UPEP) (06677)Indication: Abnormal blood chemistry On: :55 Request Serum Protein Electrophoresis (SPEP) (61533)Indication: Abnormal blood chemistry On: :55 Request CALCIFIDIOL (83453) VIT D 25Indication: Vitamin D deficiency, unspecified On: :53 Request Comments: dp om 3-4 months HEPATIC FUNCTION PANEL (07562)Indication: Elevated LFTs On: 84-Uib-356260:36 Request CREATININE CLEARANCE (22518) 24 HOURIndication: Other abnormal glucose On: 56-Zen-210155:32 Request MICROALBUMIN: CREATININE RATIO (61220) AND (50236)Indication: Other abnormal glucose On: 89-Gem-268215:26 Request CALCIFEDIOL (85324)Indication: Diarrhea On: 63-Icf-322316:16 Request Celiac Disease Antibody Profile (71599) x3 & (12374) X2- gliadin IgA, IgG and reticulin IgA, IgG and tissue transglutaminase IgA.Indication: Diarrhea On: 31-Kjk-212913:08 Request LISANDRO CULTURE-STOOL (35099)Indication: Diarrhea On: 36-Ryk-964939:06 Request C-DIFFICILE, STOOL (47345)Indication: Diarrhea On: 50-Zcw-393821:06 Request LEUKOCYTE COUNT, FECAL (07052)Indication: Diarrhea On: 80-Jsr-174425:06 Request OCCULT BLOOD FECES SCREEN (40429)Indication: Diarrhea On: 91-Zlw-969274:06 Request OVA & PARASITE DIR SMEAR (18773)Indication: Diarrhea On: 73-Ovn-387099:06 Request OVA & PARASITE DIR SMEAR (60127)Indication: Diarrhea On: :42 Request OCCULT BLOOD FECES SCREEN (97820)Indication: Diarrhea On: :42 Request LEUKOCYTE COUNT, FECAL (26245)Indication: Diarrhea On: :42 Request C.Difficile, Stool (96815)Indication: Diarrhea On: :42 Request LISANDRO CULTURE-STOOL ([id number])Indication: Diarrhea On: :42 Request CBC WITH MANUAL DIFF ([id number])Indication: Gastroenteritis On: 2-Sbz-079076:45 Request Planned Encounters Medical; 3 Month FU - On: 28-Oct-2018 8:00 [facility] Chanel Varma DO, DO, Kathleen Planned Procedures DEXA SCAN AXIAL SKELETON ([id number])By: On: 30-Jun-2018 Intent Chanel Varma DO, DO, Kathleen SCREENING DIGITAL TOMOSYNTHESIS OF On: 30-Jun-2018 Intent BREAST (51292)By: Chanel Varma DO, DO, Kathleen Flu Vaccine (Quadrivalent) 00547Xv: On: 13-May-2018 Intent Chanel Varma DO, DO, Comments: Lot #[id number]/30/19Site-L dltd, IMDose prefilled syringegiven by: Hector TRIANAVIS reviewed and ABN signed Chanel ELECTROCARDIOGRAM, COMPLETE (ECG) On: 29-Apr-2018 Intent (17217)By: Chanel Varma DO Comments: NSR NO ACUTE CHG Chanel Varma DO ELECTROCARDIOGRAM, COMPLETE (ECG) On: 13-Oct-2017 Intent (32986)By: Chanel Varma DO Comments: nsr no acute chg - Chanel Varma DO SCREENING DIGITAL TOMOSYNTHESIS OF On: 25-Jun-2017 Intent BREAST (68441)By: Chanel Varma DO, DO, Kathleen Aerosol Treatment (88780)By: Francisco Javier On: 04-Jun-2017 Intent Jessa ARIAS Radiology - ChestBy: Maxime ANDRADE, On: 06-Nov-2016 Intent Angy Aerosol Treatment ([id number])By: Maxime On: 06-Nov-2016 Intent Spring ANDRADE Aerosol Treatment (33091)By: Maxime On: 01-Nov-2016 Intent Spring ANDRADE Phenergan Injection, up to 50 mg On: 11-Oct-2016 Intent (J2550)By: Spring Swartz CNP Comments: lot:[id number]: 03/27site/route: LGM/IMamt: 1mLVIS signed when applicableChelsea, RN ALLERGY ELECTROCARDIOGRAM, COMPLETE (ECG) On: 23-Sep-2016 Intent (45022)By: Chanel Varma DO Comments: nsr no acute chg - Chanel Varma DO Bone Density StudyBy: Felicia HERNANDEZ, On: 20-May-2016 Intent Chanel Crow DO BILATERAL MAMMOGRAMS (32056)By: On: 20-May-2016 Chanel Perry DO, DO, Kathleen Toradol Injection, 30 mg On: 15-Mar-2016 Intent ([id number])By: Spring Swartz CNP Comments: 1 ml given im rt hi lot [id number] 05/20/17 MRI CERVICAL SPINE W/O CONTRAST On: 14-Aug-2015 Intent ([id number])By: Chanel Varma DO, DO, Kathleen Radiology - Cervical SpineBy: Maxime On: 25-Jul-2015 Intent Spring ANDRADE Toradol Injection, 30 mg On: 24-May-2015 Intent ([id number])By: Spring Swartz CNP Radiology - Shoulder - LeftBy: On: 24-May-2015 Intent Spring Swartz CNP Radiology - Forearm - LeftBy: Maxime On: 24-May-2015 Intent Spring ANDRADE EMGBy: Spring Swartz CNP On: 24-May-2015 Intent Nerve ConductionBy: Spring Swartz CNP On: 24-May-2015 Intent E Flu Vaccine (Quadrivalent) 35081Ae: On: 18-May-2015 Intent Chanel Varma DO, DO, Comments: Lot #[id number]-L dltd, IMDose prefilled syringegiven by:Maya, LPNVIS and ABN signed Chanel Ultrasound - GallbladderBy: Felicia On: 27-Mar-2015 Chanel Thacker DO, DO, Kathleen Comments: attention CBD size-- EKG (34792)By: Chanel Varma DO On: 22-Mar-2015 Intent Chanel Varma DO Comments: NSR NO ACUTE CHG MAMMOGRAM, SCREENING, BOTH BREAST On: 22-Mar-2015 Intent (48145)By: Chanel Varma DO, DO, Kathleen Anoscopy (92251)By: Felicia HERNANDEZ, On: 10-Oct-2014 Intent Chanel Crow DO Comments: se exam for findings IMMUNIZ ADMNIN, 1 VAC, SNGL/COMBO On: 19-May-2014 Intent (60491)By: Chaenl Varma DO, DO, Kathleen FLU VAC, SPLIT, >3 YEARS, INTRAMUSC On: 19-May-2014 Intent (24678)By: Chanel Varma DO Comments: lot: [id number]: 02/07/15site/route: Rdel/IMamt:0.5mLVIS signed when applicableChelsea, RN ALLERGY Chanel Varma DO EKG (48622)By: Chanel Varma DO On: 19-May-2014 Intent Chanel Varma DO Comments: nsr no chg when compared to old Ultrasound - LiverBy: Felicia HERNANDEZ, On: 28-Jan-2014 Intent Chanel Crow DO Eprescribed prescriptions On: 31-Dec-2013 Intent ([id number])By: Chanel Varma DO, DO, Kathleen OtherBy: Chanel Varma DO On: 31-Dec-2013 Intent Chanel HERNANDEZ Comments: esophagram with 13 mm tablet EKG (93380)By: Chanel Varma DO On: 14-Jun-2013 Intent Chanel Varma DO Comments: nsr no acute chg Eprescribed prescriptions On: 14-Jun-2013 Intent (G8553)By: Marissa Gomez LPN DXA, BONE DENSITY, AXIAL SKELETON On: 10-May-2013 Intent ([id number])By: Marissa Gomez LPN Comments: dx post menopausal MAMMOGRAM, SCREENING, BOTH BREASTS On: 10-May-2013 Intent (47364)By: Marissa Gomez LPN Comments: dx breast screening INFUSION, NORMAL SALINE SOLUTION , On: 25-Sep-2012 Intent 1000 CC (Special Coverage Instructions Apply. See MCM: 2049) ([id number])By: Aby Douglas MD HYDRATION IV INFUSION, INIT On: 25-Sep-2012 Intent (87348)By: Aby Douglas MD hida scan with cckBy: Felicia HERNANDEZ, On: 22-Jun-2012 Intent Chanel Crow DO Eprescribed prescriptions On: 18-May-2012 Intent (G8553)By: Marissa Gomez LPN PNEUM VAC ADLT/IMUMNOSPR, SBC/INTRM On: 24-Jul-2011 Intent (65387)By: Chanel Varma DO Comments: Lot #[id number]/22/12Site-left deltoidDose- 0.5mlgiven by: JUANA Ramos DO, Kathleen EKG (05843)By: Chanel Varma DO On: 24-Jul-2011 Intent Chanel Varma DO Comments: nsr no acute chg- IMMUNIZ ADMNIN, 1 VAC, SNGL/COMBO On: 24-Jul-2011 Intent (58612)By: Chanel Varma DO, DO, Kathleen EKG (00046)By: Chanel Varma DO On: 21-Sep-2010 Intent Chanel Varma DO Comments: nsr no acute chg TDAP VACCINE >7 IM (00270)By: On: 28-May-2010 Intent Chanel Varma DO, DO, Comments: Lot [id number] 04/22Site- R Dltd/IMDose 0.5mlgiven by: JUANA JAQUEZ IMMUNIZ ADMNIN, 1 VAC, SNGL/COMBO On: 28-May-2010 Intent (63948)By: Chanel Varma DO Comments: Lot #[id number]- /11Site- L Dltd/IMDose 0.5mlgiven by: JUANA JAQUEZ DO, Kathleen FLU VAC, SPLIT, >3 YEARS, INTRAMUSC On: 28-May-2010 Intent (90923)By: Chanel Varma DO, DO, Kathleen Inhaler Demonstration (31633)By: On: 14-May-2010 Intent Spring Swartz CNP Pulse Oximetry (64662)By: Maxime On: 14-May-2010 Intent Spring ANDRADE Aerosol Treatment (90557)By: Maxime On: 14-May-2010 Intent Spring ANDRADE DXA, BONE DENSITY, AXIAL SKELETON On: 18-Jan-2010 Intent (22556)By: Chanel Varma DO, DO, Kathleen PHYSICAL THERAPY EVALUATION On: 27-Nov-2009 Intent (60472)By: Spring Swartz CNP Radiology - Knee - Left - Weight On: 27-Nov-2009 Intent BearingBy: Spring Swartz CNP Flu Vaccine, Split IM (85006)By: On: 23-May-2009 Intent Chelsea Siddiqi LPN Comments: Lot #[id number]-right deltoidgiven by:[facility] INFUSION, NORMAL SALINE SOLUTION , On: 28-Dec-2008 Intent 1000 CC (Special Coverage Comments: IV Therapy initiated (Romulo Gomez LPN)22G, 1 inchSite: left a/cTolerated: wellno redness or swelling, no s/s infiltrationB. JUANA Hodges Instructions Apply. See MCM: 2049) (J7030)By: Spring Swartz CNP HYDRATION IV INFUSION, INIT On: 28-Dec-2008 Intent (31817)By: Spring Swartz CNP Radiology - Abdomen SeriesBy: On: 14-Jan-2008 Intent Chanel Varma DO, DO, Kathleen INFUSION, NORMAL SALINE SOLUTION , On: 14-Jan-2008 Intent 1000 CC (Special Coverage Comments: Lot #:[id number] date:04-19 Amount given:1 liter Route: IVSite given:right anticub Given by: judit Instructions Apply. See MCM: 2049) (J7050)By: Chanel Varma DO, DO, Kathleen IV Needle placement (04255)By: On: 14-Jan-2008 Intent Chanel Varma DO, DO, Comments: # 22 placed to right anticubital space without difficulty per judit Buchanan IV Infusion (67627)By: Felicia HERNANDEZ, On: 14-Jan-2008 Intent Chanel Crow DO Planned Medications INFUSION, NORMAL SALINE SOLUTION , 1000 CC Ordered: 25-Sep-2012 Pending Aby Douglas MD INJECTION, KETOROLAC TROMETHAMINE, PER 15 MG Ordered: 24-May-2015 Pending Spring Swartz CNP INJECTION, KETOROLAC TROMETHAMINE, PER 15 MG Ordered: 15-Mar-2016 Pending Spring Swartz CNP Phenergan 50 MG/ML Injection Solution Ordered: 11-Oct-2016 Pending Spring Swartz CNP Instructions Name Dates Details Body mass index (BMI) of 30.0-30.9 in adult : How to access health information online - Detail Indication: Body mass index (BMI) of 30.0-30.9 in adult Body mass index (BMI) of 30.0-30.9 in adult : Patient Instructions Indication: Body mass index (BMI) of 30.0-30.9 in adult Nonsmoker : How to access health information [...] finding Hypercholesteremia : DISCONTINUED - LIPID PANEL (52446) Indication: Hypercholesteremia Hypercholesteremia : DISCONTINUED - TSH (62042) Indication: Hypercholesteremia Diabetes mellitus type II, controlled, with no complications : DISCONTINUED - URINALYSIS, AUTOMATED W/ MICRO (19579) Indication: Diabetes mellitus type II, controlled, with no complications Diabetes mellitus type II, controlled, with no complications : DISCONTINUED - MICROALBUMIN: CREATININE RATIO (00586) AND (46157) Indication: Diabetes mellitus type II, controlled, with no complications Diabetes mellitus type II, controlled, with no complications : DISCONTINUED - METABOLIC PANEL, COMPREHENSIVE (36733) Indication: Diabetes mellitus type II, controlled, with no complications Diabetes mellitus type II, controlled, with no complications : DISCONTINUED - CBC WITH MANUAL DIFF (84691) Indication: Diabetes mellitus type II, controlled, with no complications Vitamin D deficiency, unspecified : DISCONTINUED - Vitamin D Hydroxy (39781) Indication: Vitamin D deficiency, unspecified Hypertension, essential, benign : DISCONTINUED - TSH (18247) Indication: Hypertension, essential, benign Hypertension, essential, benign : DISCONTINUED - URINALYSIS, AUTOMATED W/ MICRO (49993) Indication: Hypertension, essential, benign Hypertension, essential, benign : DISCONTINUED - MICROALBUMIN: CREATININE RATIO (87622) AND (82045) Indication: Hypertension, essential, benign Hypertension, essential, benign : DISCONTINUED - METABOLIC PANEL, COMPREHENSIVE (91662) Indication: Hypertension, essential, benign Hypertension, essential, benign : DISCONTINUED - CBC WITH MANUAL DIFF (03125) Indication: Hypertension, essential, benign Hypertension, essential, benign : DISCONTINUED - TSH (57351) Indication: Hypertension, essential, benign Hypertension, essential, benign : DISCONTINUED - URINALYSIS, AUTOMATED W/ MICRO (84395) Indication: Hypertension, essential, benign Hypertension, essential, benign : DISCONTINUED - MICROALBUMIN: CREATININE RATIO (72745) AND (09153) Indication: Hypertension, essential, benign Hypertension, essential, benign : DISCONTINUED - METABOLIC PANEL, COMPREHENSIVE (00167) Indication: Hypertension, essential, benign Hypertension, essential, benign : DISCONTINUED - LIPID PANEL (93766) Indication: Hypertension, essential, benign Hypertension, essential, benign : DISCONTINUED - CBC WITH MANUAL DIFF (74545) Indication: Hypertension, essential, benign Cough : How [...] Indication: Sinusitis, acute Encounters Office Visit On: 29-Jul-2018 9:29 Encounter Reason: Follow up tests - Date: (07/24/18 labs)., [ADDITIONAL REASON] Follow up for chronic medical issues - The patient feels well with minor complai End: 29-Jul-2018 10:40 nts, has decreased energy level and is sleeping poorly. Patient has been compliant with instructions. Current medication use: no side effects and compliant with dosing regimen. Patient sleeps 7 hours pe r night. Nutrition: balanced diet and supplemental vitamins. The medical issues the patient is following up for include All identified problems below, blood sugar issues, high blood pressure and high ch olesterol. fasting blood sugars : and weight :. Note for Follow up for chronic medical issues: i feel well -- just some occassional pnd Encounter Diagnosis: Nonsmoker, Body mass index (BMI) of 30.0-30.9 in adult, GERD (gastroesophageal reflux disease), Hypercholesteremia, Vitamin D deficiency, unspecified, Psoriatic arthropathy, Hypertension, essential, benign, Diabetes mellitus type 2, uncontrolled, without complications, Elevated LFTs [facility] Office Visit On: 30-Jun-2018 8:32 Encounter Reason: Well Women Exam - The patient feels well with minor complaints, has good energy level and is sleeping well. Pap smear: date of last pap: (?). Contraceptive history: The patient is not using any method o End: 30-Jun-2018 9:52 f contraception at this time. Patient exercises a weekly. The patient reports that she performs monthly self breast exam. Calcium intake includes 1 serving milk daily. The patient denies the use of oral contraceptives or hormone replacement therapy. Menstruation: Last menstrual period date: (41).Encounter Diagnosis: Body mass index (BMI) of 30.0-30.9 in adult, Nonsmoker, Encounter for gynecological examination without abnormal finding, Encounter for screening mammogram for breast cancer (Renamed from Encounter for screening mammogram for malignant neoplasm of breast), Post-menopausal, Screening for HPV (human papillomavirus) (Renamed from Encounter for screening for human papillomavirus (HPV)) [facility] Office Visit On: 13-May-2018 9:10 Encounter Reason: [...] up ER - Reason for hospitalization note: ([facility] er sat night for the worst [...] effects and compliant with dosing regimen. Bryant valentin sleeps 5 hours per night. Nutrition: balanced [...] left [facility] Office Visit On: 18-May-2015 7:19 Encounter Reason: Well Women Exam - [...] Internal Medicine End: 14-Jan-2008 9:00 [facility] merissa guarantor
--- OUTSIDE RECORDS SUMMARY | 2018-11-03 10:56 | XMS RPT_ITS | Continuity of Care Document ---
:1960 Author Organization [facility] Address [facility] [address] [place] [address] Phone Care Team Providers Name Role Phone Chanel Varma DO Unavailable Alexis RDZ, Joey Gallegos Unavailable Physical Therapy, [facility] Unavailable Edin Cotter MD Unavailable Dr. Herve [...] examination without abnormal finding (Z01.419, V72.31) Comments: 05/26n hpv neg adn no chg in sexual [...] Quantity: 12 {Tablet} Refills: 3 Ordered:04-Jun-2017 Evertonmerissa ANDRADESpring Start : 04-Jun-2017 Active Alendronate Sodium 70 MG Oral Tablet 1 (one) Tablet q weekly for 90 days Quantity: 3 {Tablet} Refills: 3 Ordered:04-Jun-2017 Maxime ANDRADE Spring Clemons Start : 04-Jun-2017 Active Atenolol 25 MG [...] (50 MG/ML) End : 06-Nov-2016 Discontinued ERGOCALCIFEROL, 99660IQAO (Oral Capsule) 1 (one) Capsule twice weekly for 0 days Quantity: 8 {Capsule} Refills: 2 Ordered:18-Apr-2009 Catrinaesteban LUPESpring Start : 18-Apr-2009 End : 18-Apr-2009 Discontinued [...] Quantity: 1 {Cream} Refills: 0 Ordered:18-Jan-2010 Mast SIMONARenée Start : 18-Jan-2010 End : 18-Jan-2010 Discontinued [...] Calles End : 28-Dec-2008 Discontinued VITAMIN D, 05077TUZW (Oral Capsule) 1 Weekly for 0 days Refills: 0 Ordered:28-Jan-2014 Marissa Gomez LPN Start : 28-Jan-2014 End : 23-Dec-2014 Discontinued Comments:This order discontinued per -Span. Vitamin D3 39478 UNIT Oral Capsule 1 (one) Capsule Capsule [...] VAC ADLT/IMUMNOSPR, SBC/INTRM Date: 02-Aug-2016 Completed 02-Aug-2016 (99054) Comments: lot: [id number]: 01/25/2018site/route: L del/IMamt: 0.5mLVIS signed when applicableChelsea, SUBSTATION OPERATOR AUTOMATIC cervical spin herniated disc Completed Comments: 11/13/15 - Dr Edin Cotter - [facility] Cholecystectomy Completed Comments: 07/22 Date Value Details 22-Apr-2018 Emergency Department Summary Result: Comments: See Note; NOTES: [facility] Medical Records Department [address] [facility] [place] [place] [address] Emergency Department Summary 04/22/18 0136 MR#: [id number] Acct: [id number] Name: LEATHA ABAD Rep #: [id number] : 1960 57 From: Edin Haddad MD [...] Impression: Gastroenteritis This note was generated with Smart Surgical dictation software. It may contai n incorrect [...] your Primary Care Provider. Call [facility] ([phone]) or report to the closest Emergency Room. Call 911 if necessary. 0358 <Electronically signed by Edin Haddad MD> Date Edin Haddad MD Cosigner Signature (If Indicated): Date _ CC: Chanel Varma DO 22-Apr-2018 Abdomen/Pelvis W IV Cont ONLY Result: Comments: See Note; NOTES: [facility] Imaging Services [address] [place] [address] Abdomen/Pelvis W IV Cont ONLY MR#: [id number] Acct: [id number] Name: LEATHA ABAD #: [id number] : 1960 F 57 From: David Giang MD PCP: Chanel Varma DO Status: REG ER Study: Abdomen/Pelvis W IV Cont ONLY Date of Exam: 04/22/18 Exam# [id number] Ordering Dr: Edin Madrigal MD STUDY: CT [...] CC: Chanel Varma DO; Edin Haddad MD Industrial Engineering: Signed 21-Feb-2018 Discharge Instruction Result: Comments: See Note; NOTES: [facility] Medical Records Department [address] [place] [address] Discharge Instruction 02/21/18 1944 MR#: [id number] Acct: [id number] Name: LEATHA GALARZA Rep #: [id number] : 1960 57 From: Catalino Murguia MD [...] your Primary Care Provider. Call [facility] ([phone]) or report to the closest Emergency Room. Call 911 if necessary. 02/21/18 8084 <Electronically signed by Catalino Murguia MD> Date Catalino Murguia MD Cosigner Signature (If Indicated): Date CC: Chanel Varma DO 21-Feb-2018 Emergency Department Summary Result: Comments: See Note; NOTES: [facility] Medical Records Department [address] [place] [address] Emergency Department Summary 02/21/18 1822 MR#: [id number] Acct: [id number] Name: LEATHA ABAD Rep #: [id number] : 1960 57 From: Catalino Murguia MD [...] ly intact. 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 Bilateral dorsi plantar flexion. Fingertip to [...] Acute hypertension This note was generated with Smart Surgical dictation software. It may contain incorrect words, [...] your Primary Care Provider. Call [facility] ([phone]) or report to the closest Emergency Room. Call 911 if necessary. 02/21/18 7121 <Electronically signed by Catalino Murguia MD> Date Catalino Murguia MD Cosigner Signature (If Indicated): Date CC: Chanel Varma DO 21-Feb-2018 Brain/Head without Contrast Result: Comments: See Note; NOTES: [facility] Imaging Services [address] [place] [address] Brain/Head without Contrast MR#: [id number] Acct: [id number] Name: RUTHIE ABADCHANTALE Joy Rep #: [id number] : 1960 F 57 From: Levi Castellon MD PCP: Chanel Varma DO Status: REG ER Study: Brain/Head without Contrast Date of Exam: 02/21/18 Exam# [id number] Ordering Dr: Catalino Murguia MD STUDY: CT [...] CC: Catalino Murguia MD; Chanel Varma DO Industrial Engineering: Signed 15-Sep-2017 Knee 4 or More Views Result: Comments: See Note; NOTES: [facility] Imaging Services [address] [place] [address] Knee 4 or More Views MR#: [id number] Acct: [id number] Name: LEATHA ABAD Rep #: [id number] : 1960 F 56 From: Jason Ramirez PCP: Chanel Varma DO Status: REG CLI Study: Knee 4 or More Views Date of Exam: 09/15/17 Exam# [id number] Ordering Dr: Jo Hutchison MD STUDY: X-RAY [...] CC: Chanel Varma DO; Jo Hutchison MD Industrial Engineering: Signed 15-Sep-2017 Knee 4 or More Views Result: Comments: See Note; NOTES: [facility] Imaging Services [address] [place] [address] Knee 4 or More Views MR#: [id number] Acct: [id number] Name: LEATHA ABAD Rep #: [id number] : 1960 F 56 From: Jason Ramirez PCP: Chanel Varma DO Status: REG CLI Study: Knee 4 or More Views Date of Exam: 09/15/17 Exam# [id number] Ordering Dr: Jo Hutchison MD STUDY: X-RAY [...] DO at 23:23 EST , Service support [phone], CC: Chanel Varma DO; Jo Hutchison MD Industrial Engineering: Signed 28-Jul-2017 SCREENING MAMM (CAD), BILAT Result: Comments: See Note; NOTES: [facility] Imaging Services [address] [place] [address] SCREENING MAMM (CAD), BILAT MR#: [id number] Acct: [id number] Name: LEATHA ABAD Rep #: [id number] : 1960 F 56 From: Joryd Masters MD PCP: Chanel Varma DO Status: REG CLI Study: SCREENING MAMM (CAD), BILAT Date of Exam: 07/28/17 Exam# [id number] Ordering Dr: Janel Varma DO MAMMOGRAPHY - [...] 2016 and April 26, 2015. FINDINGS: Breast [place] sition: There are scattered areas of fibroglandular [...] delay biopsy of a clinically suspicious abnormality. [id number] Electronically Signed: Jordy Masters MD 27/07/19 at 8:04 EST Tel [phone], Service support , CC: Chanel Varma DO Industrial Engineering: Signed 06-Nov-2016 Chest PA and Lateral Result: Comments: See Note; NOTES: [facility] Imaging Services [address] [place] [address] Verdana 4d Chest PA and Lateral MR#: [id number] Acct: [id number] Name: LEATHA ABAD Rep #: [id number] : 1960 F 55 From: Jordy Masters MD PCP: Chanel Varma DO Status: REG CLI Study: Chest PA and Lateral Date of Exam: 11/06/16 Exam# [id number] Ordering Dr: Spring Swartz STUDY: X-RAY CHEST [...] Jordy Masters MD at 15:52 EDT Tel [phone], Service support [phone], Fax CC: Spring Swartz; Chanel Varma DO Industrial Engineering: Signed 23-Jul-2016 Bilat Scrn Digital AND CAD Result: Comments: See Note; NOTES: [facility] Imaging Services [address] [place] [address] Verdana 4d Bilat Scrn Digital AND CAD MR#: [id number] Acct: [id number] Name: ARELIS ABAD Rep #: [id number] : 1960 F 55 From: Jordy Masters MD PCP: Chanel Varma DO Status: REG CLI Study: Bilat Scrn Digital AND CAD Date of Exam: 07/23/16 Exam# [id number] Ordering Dr: Chanel Palacios DO MAMMOGRAPHY - [...] delay biopsy of a clinically suspicious abnormality. [id number] Electronically Signed: Jordy Masters MD at 10:50 ES T Tel [phone], Service support [phone], CC: Chanel Varma DO Industrial Engineering: Signed 23-Jul-2016 Dexa Bone Density Study (HP) Result: Comments: See Note; NOTES: [facility] Imaging Services [address] [place] [address] Verdana 4d Dexa Bone Density Study (HP) MR#: [id number] Acct: [id number] Name: BRYANT ABAD Rep #: [id number] : 1960 F 55 From: Jordy Masters MD PCP: Chanel Varma DO Status: [facility] Study: Dexa Bone Density Study (HP) Date of Exam: 07/23/16 Exam# [id number] Ordering Dr : Chanel Varma DO STUDY: [...] Jordy Masters MD at 9:07 EST Tel [phone], Service support [phone], CC: Chanel Varma DO Industrial Engineering: Signed 21-Apr-2016 Emergency Department Summary Result: Comments: See Note; NOTES: [facility] Medical Records Department [address] [place] [address] Emergency Department Summary MR#: [id number] Acct: [id number] Name: BRYANT ABAD Rep #: [id number] : 1960 55 From: Saira Manriquez MD [...] 8 episodes of diarrhea. 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 Saira Manriquez MD T: NTS JOB: [id number] 04/21/16 0003 <Electronically signed b y Saira Manriquez MD> Date Saira Schmitz Signature (If Indicated): Date CC : Chanel Varma DO Date Dictated: 04/20/162320 Date Transcribed: 04/20/162320 Industrial Engineering: Signed 20-Apr-2016 Discharge Instruction Result: Comments: See Note; NOTES: [facility] Medical Records Department [address] [place] [address] Discharge Instruction 04/20/162316 MR#: [id number] Acct: [id number] Name: LEATHA CONTEH Rep #: [id number] : 1960 55 From: Saira Manriquez MD PCP: Cahnel Varma DO Status: REG ER ED Disposition [...] problems, contact your doctor. Call [facility] ([phone]) or report to the closest Emergency Room. Call [phone] if necessary. 04/20/162317 <Electronically signed by Saira Manriquez MD> Date Saira Schmitz Signature (If Indicat ed): Date CC: Chanel Varma DO 29-Cody-2016 PT D/C Summary (1) Result: Comments: See Note; NOTES: [facility] [address] [place], [place] [address] Fax REHABILITATION SE KAUR DISCHARGE SUMMARY MR#: [id number] Acct: [id number] Name: LEATHA ABAD Rep #: [id number] : 1960 55 From: Marina Damico PT, Cert. MDT Referring DrLottie: Chanel Varma DO Statu s: REG RCR Insurance: [facility] HP - PT D/C Summary It has [...] BETTER. 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 Thank you for the referral of this patient. Sincerely, Marina Damico &#6 0;Electronically signed by Cert. KENDELL Arzola PTT> 02/07/16 1031 CC: Chanel Varma DO DOMONIQUE Signed 12-Dec-2015 Inital Evaluation (1) - PT Result: Comments: See Note; NOTES: [facility] [address] [facility] [place] [address] Fax REHABILITATION SE RVICES INITIAL EVALUATION MR#: [id number] Acct: [id number] Name: LEATHA ABAD Rep #: [id number] : 1960 55 From: Cert. KENDELL Arzola PTT Referring Dr.: Chanel Varma DO Stat us: REG [facility] Insurance: Glad [facility] Have You [facility] Date: Patient's Visit Information LEATHA ABAD is [...] [address] EDIN COTTER AT [facility]. 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 SHE REPORTS SHE REGAINED MOST OF [...] WITH ERP, LEFT 80 DEG. JOSE LUIS DIRECTOR OF COMMUNITY CENTER STRENGTH IS 20 LBS AND PROVOKES PAIN WITH TESTING. JOSE LUIS ELBOW, WRIST, FOREARM A ND HAND AROM IS SYMMETRICAL BUT ARTHRITIC AND THERE IS ERP WITH LEFT ELBOW EXTENSION. MMT NOT PERFORMED DUE TO SHOULDER AROM AND DIRECTOR OF COMMUNITY CENTER TESTING PROVOKING PAIN. ANTERIOR CERVICAL INCISION LOOKS [...] to be FAXED BACK to us at [phone] for Medicare purposes. Please let me know if there are questions or concerns regarding this plan of care. Physician Signature: Date: <Electronically signed by Marina Damico PT, Cert. MDT> 12/12/15 1113 CC: Chanel Varma DO DOMONIQUE Signed For Medicare only, by signing this I certify the plan of care. Physicians Signature Date 06-Nov-2015 EKG (88280) Comments: nsr no acute chg Result: [MEASUREMENTS ANALYSIS] Date of Test: 11/06/2015 09:32:00; Heart Rate: 80; IA Interval: 190; QRS: 88; QT Interval: 354; Corrected QT Interval (QTc): 389; P Wave [place]: 37; QRS Wave [place]: -17; T Wave [place] : 37; Blood Pressure: 122/80 [ECG DIAGNOSTIC STATEMENTS] Date of Test: 11/06/2015 09:32:00; Summary: Sinus Rhythm WITHIN NORMAL LIMITS 18-Aug-2015 Spine Cervical (Routine) Result: Comments: See Note; NOTES: [facility] Imaging Services [address] [place] [address] Verdana 4d Spine Cervical (Routine) MR#: [id number] Acct: [id number] Name: LEATHA ARNETT Rep #: [id number] : 1960 F 54 From: Anand Zepeda MD PCP: Chanel Varma DO Status: REG CLI Study: Spine Cervical (Routine) Date of Exam: 08/18/15 Exam# [id number] Orderi cristobal Dr: Chanel Varma DO STUDY: MRI CERVICAL [...] lordosis. Normal vertebral bodies and posterior osseous [place] ents. C2-3: Normal endplates. Normal disc height, [...] at 18:12 EST Tel , Service support [phone], CC: Chanel Varma DO Industrial Engineering: Signed 07-Aug-2015 Cerv Spine 2 or 3 Views Result: Comments: See Note; NOTES: [facility] Imaging Services [address] [place] [address] Verdana 4d Cerv Spine 2 or 3 Views MR#: [id number] Acct: [id number] Name: LEATHA BEE Rep #: [id number] : 1960 F 54 From: Lucho Villatoro MD PCP: Chanel Varma DO Status: REG CLI Study: Cerv Spine 2 or 3 Views Date of Exam: 08/07/15 Exam# [id number] Ordering Dr : Chanel Varma DO STUDY: [...] at 13:38 EST Tel , Service support [phone], RAD/Cerv Spine 2 or 3 Vi ews IMPRESSION: Normal x-ray examination of the visualized cervical spine. Electronically Signed: Terry Villatoro MD at 13:38 EST Tel , Service support [phone], CC: Chanel Varma DO Industrial Engineering: Signed 25-Jul-2015 NCS and/or EMG Patient Result: Comments: See Note; NOTES: [facility] Pulmonary Services/Neurology [address] [place] [address] NCS and/or EMG Patient MR#: [id number] Acct: [id number] Name: LEATHA CARMONA Rep #: [id number] : 1960 54 From: Ledy Cedillo MD Referring Dr: Spring Swartz Status: REG CLI Ordering Dr: Spring Swartz Date: 07/19/15 Location: [facility] Sex: F C DATE OF SERVICE: The [...] me. Ledy Cedillo MD T: NTS JOB: [id number] 07/25/1515 <Electronically signed by Ledy Cedillo MD> Date Ledy Cedillo MD CC: Spring Swartz; Ledy Cedillo; Chanel Varma DO Date Dictated: 07/19/151334 Date Transcribed: 07/19/151334 Industrial Engineering: Signed 26-Jun-2015 PT D/C Summary Result: Comments: See Note; NOTES: [facility] [address] [place] [address]. [address] [place] [address] Fax REHABILITATION RVICES DISCHARGE SUMMARY MR#: [id number] Acct: [id number] Name: LEATHA ABAD Rep #: [id number] : 1960 54 From: Marina Damico Referring [...] arnold feel free to call me at [phone]. Thank you for the referral of this patient. Sincerely, Marina Damico <Electronically signed by Marina Damico > 06/26/15 2910 CC: Spring Swartz; Chanel Varma DO DOMONIQUE Signed 07-Jun-2015 Inital Evaluation - PT Result: Comments: See Note; NOTES: [facility] [facility] [place] [address] Fax REHABILITATION SE RVICES INITIAL EVALUATION MR#: [id number] Acct: [id number] Name: LEATHA ABAD Rep #: [id number] : 1960 54 From: Marina Damico Referring Dr.: Spring Swartz Status: REG [facility] Insurance : [employer] Date: Patient's Visit Information LEATHA ABAD is [...] E HELPING. PATIENT DENIES NECK PAIN. 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 Please let me know if there are questions or concerns regarding this plan of care. Physician Signature: ____Date: <Electronically signed by Marina Damico > 06/07/15 1615 CC: Spring Swartz; Chanel Varma DO DOMONIQUE Signed For Medicare only, by signing this I certify the plan of care. Physicians Signature Date 24-May-2015 Forearm 2 Views Result: Comments: See Note; NOTES: [facility] Imaging Services [address] [place] [address] Radiology Report MR#: [id number] Acct: [id number] Name: LEATHA ABAD Shanika p #: [id number] : 1960 F 54 From: Lucho Morales MD PCP: Chanel Varma DO Status: REG CLI Study: Forearm 2 Views Date of Exam: 05/24/15 Exam# [id number] Ordering Dr: Spring Swartz STUDY: X-RAY - [...] MD at 16:22 EDT , Service support [phone], RAD/Forearm 2 Views IMPRESSION: Normal x-ray examination of the radius and ulna. Electronically Signed: Terry Morales MD at 16:22 EDT , Service support [phone], CC: Spring Swartz; Chanel Varma DO Industrial Engineering: Signed 24-May-2015 Shoulder min 2 Views Result: Comments: See Note; NOTES: [facility] Imaging Services [address] [place] [address] Radiology Report MR#: [id number] Acct: [id number] Name: LEATHA ABAD p #: [id number] : 1960 F 54 From: Lucho Morales MD PCP: Chanel Varma DO Status: REG CLI Study: Shoulder min 2 Views Date of Exam: 05/24/15 Exam# [id number] Ordering Dr: Spring Swartz UDY: X-RAY - [...] MD at 16:24 EDT , Service support [phone], RAD/Shoulder min 2 Views IMPRESSION: Findings of calcific tendinitis of the rotator cuff. Electronically Signed: Terry Morales MD at 16:24 EDT , Ser vice support [phone], CC: Spring Swartz; Chanel Varma DO Industrial Engineering: Signed 26-Apr-2015 Bilat Scrn Digital AND CAD Result: Comments: See Note; NOTES: [facility] Imaging Services [address] [place] [address] Breast Imaging Report MR#: [id number] Acct: [id number] Name: LEATHA ABAD p #: [id number] : 1960 F 54 From: Jordy Masters MD PCP: Chanel Varma DO Status: REG CLI Study: Bilat Scrn Digital AND CAD Date of Exam: 04/26/15 Exam# [id number] Ordering Dr: Chanel Varma DO MAMMOGRAPHY - [...] Jordy Masters MD at 9:11 EDT Tel [phone], Service support [phone], CC: Chanel Varma DO Industrial Engineering: Signed 07-Apr-2015 Gallbladder Result: Comments: See Note; NOTES: [facility] Imaging Services [address] [place] [address] Ultrasound Report MR#: [id number] Acct: [id number] Name: LEATHA ABAD Rep #: [id number] : 1960 F 54 From: Jordy Masters MD PCP: Chanel Varma DO Status: REG CLI Study: Gallbladder Date of Exam: 04/07/15 Exam# [id number] Ordering Dr: Chanel Varma DO ST UDY: ABDOMINAL ULTRASOUND - RIGHT UPPER QUADRANT [...] Jordy Masters MD at 13:10 EDT Tel [phone], Service support [phone], CC: Chanel Varma DO Industrial Engineering: Signed 01-Mar-2015 Emergency Department Summary Result: Comments: See Note; NOTES: [facility] Medical Records Department [address] [place] [address] Emergency Department Summary MR#: [id number] Acct: [id number] Name: LEATHA CARMONA Rep #: [id number] : 1960 54 From: Joey Ponce MD [...] C: Chanel Varma DO T: NTS JOB: [id number] 02/09 <Electronically signed by Joey Ponce MD> Date Joey Ponce MD CC: Chanel Varma DO Date Dictated: 02/28/15754 Date Transcribed: 02/28/15754 Industrial Engineering: Signed 28-Feb-2015 Discharge Instruction Result: Comments: See Note; NOTES: [facility] Medical Records Department [address] [place] [address] Discharge Instruction 02/28/15 0744 MR#: [id number] Acct: [id number] Name: LEATHA ABAD Rep #: [id number] : 1960 54 From: Joey Ponce MD [...] contact y our doctor. Call [facility] ([phone]) or report to the closest Emergency Room. Call 911 if necessary. 02/28/15 0745 <Electronically signed by Joey Ponce MD> Date ____ Joey Schmitz Signature (If Indicated): Date CC: Chanel Varma DO 07-Jan-2014 Esophagus Only Result: Comments: See Note; NOTES: [facility] Imaging Services [address] [place] [address] Radiology Report MR#: [id number] Acct: [id number] Name: LEATHA ABAD Rep #: [id number] : 1960 F 53 From: Jordy Masters MD PCP: Chanel Varma DO Status: REG CLI Study: Esophagus Only Date of Exam: 01/07/14 Exam# [id number] Ordering Dr: Chanel Varma TUDY: X-RAY - [...] Jordy Masters MD at 10:01 EDT Tel [phone], Service support [phone], CC: Chanel Varma DO; tSevan Ngo MD Industrial Engineering: Signed Immunization Name Dates Details Influenza (3 years and up) on: 23-May-2009 Comments: Lot #[id number]-right deltoidgiven by:[facility] Pneumococcal (2 years and up) on: 02-Aug-2016 Comments: Site: Deltoid (Left) Lot #: [id number] Family History Unknown Family Member Name Dates [...] Status: Active 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 Comments: 10/30/11 Status: Active Smoking Status Name Dates Details Never smoker Vital Signs Date Test Result Details :05 Pulse 60 /min Comments: Pattern: Regular [...] kg/m2 Body Surface Area Calculated 1.99 m2 13-May-20189:12 Pulse 72 /min Comments: Pattern: Regular [...] kg/m2 Body Surface Area Calculated 1.98 m2 27-Xzt-569188:06 Pulse 77 /min Comments: Pattern: Regular Respiration [...] 0.00 cm Results Date Description Value Details 66-Ygq-905154:15 HGB A1C (57108) Comments: PATIENT NOT FASTINGPERFORMED BY: CHARLES [facility] Gdbbvn7580 [facility] [id number] Hemoglobin A1c 7.0 % (Abnormal) Range: 4.8-5.6 Comments: . Prediabetes: 5.7 - 6.4 Diabetes: >6.4 Glycemic control for adults with diabetes: <7.0 :00 CBC W/Diff, Automated Comments: [facility] [address] [place], [place], [id number] Absolute Lymph 2.33 {X10_3/ul} (Normal) Range: 0.83-4.51 [...] 4.2-5.4 WBC 9.3 K/mm3 (Normal) Range: 4.4-11.0 79-Bvm-05668:00 Comprehensive Metabolic Profil Comments: [facility] [address] [place], [address] GAP 10 (Normal) Range: 5-15 CO2 24.0 [...] A.D.A. criteria.Please note revised GLUCOSE reference range apenutkdd51/02/2018. 4-Nlc-736058:58 CBC W/Diff, Automated Comments: DR. HUTCHISON ORDERED CMP CBCMINERVA SHEPHERD ORDERED CBCD [facility] [address] [place], [place], [phone] Absolute Lymph 2.63 {X10_3/ul} (Normal) Range: 0.83-4.51 [...] 4.2-5.4 WBC 6.5 K/mm3 (Normal) Range: 4.4-11.0 :58 Comprehensive Metabolic Profil Comments: DR. HUTCHISON ORDERED CMP CBCMINERVA SHEPHERD ORDERED CBCD [facility] [address] [place], [place], [address] GAP 9 (Normal) Range: 5-15 CO2 27.0 [...] A.D.A. criteria.Please note revised GLUCOSE reference range niyglrlme89/02/2018. 0-Cna-989827:58 Prothrombin Time w/INR Comments: DR. HUTCHISON ORDERED CMP CBCDKSHIRA SHEPHERD ORDERED [facility] [address] [place], [place], [address] INR 1.0 (Normal) PROTIME 13.5 s (Normal) Range: 11.7-14.9 55-Ofj-607507:21 PT (PROTHROMBIN TIME) (49967) Comments: PATIENT NOT FASTINGPERFORMED BY: [facility] CenterRgxosi1202 [facility] [id number] INR 1.0 (Normal) Range: 0.8-1.2 Comments: Reference interval is for non-anticoagulated patients. . Suggested INR therapeutic range for Vitamin K anta gonist therapy: Standard Dose (moderate intensity therapeutic range): 2.0 - 3.0 Higher intensity therapeutic range 2.5 - 3.5 Prothrombin Time 10.5 {sec} (Normal) Range: 9.1-12.0 01-Umi-881036:21 CBC & PLATELETS (AUTO) Comments: PATIENT NOT FASTINGPERFORMED BY: [facility] Uyjwog1017 [facility] [id number] (15562) Platelets 288 {x10E3/uL} (Normal) Range: 150-379 RDW 13.6 % (Normal) Range: 12.3-15.4 MCHC 33.1 g/dL (Normal) Range: 31.5-35.7 MCH 30.0 pg (Normal) Range: 26.6-33.0 MCV 91 fL (Normal) Range: 79-97 Hematocrit 40.5 % (Normal) Range: 34.0-46.6 Hemoglobin 13.4 g/dL (Normal) Range: 11.1-15.9 RBC 4.47 {x10E6/uL} (Normal) Range: 3.77-5.28 WBC 6.7 {x10E3/uL} (Normal) Range: 3.4-10.8 76-Ybf-250103:35 Basic Metabolic Profile (BMP) Comments: [facility] [address] [place], [address] GAP 9 (Normal) Range: 5-15 CO2 29.0 [...] A.D.A. criteria.Please note revised GLUCOSE reference range jddqofttq23/02/2018. 31-Nbn-386362:11 Bedside Glucose Comments: [facility] LaboratoryPoint of [address] [place] [address] BEDSIDE GLU 203 mg/dL (Abnormal) Range: 70-110 Comments: MANAGEMENT OF PATIENT CARE PER NURSING PROTOCOL 24-Mwn-589744:23 CBC W/Diff, Automated Comments: [facility] [address] [place], [address] Absolute Lymph 2.83 {X10_3/ul} (Normal) Range: 0.83-4.51 [...] 4.2-5.4 WBC 6.9 K/mm3 (Normal) Range: 4.4-11.0 21-Zij-330132:23 Comprehensive Metabolic Profil Comments: [facility] [address] [place], [address] GAP 9 (Normal) Range: 5-15 CO2 29.0 [...] A.D.A. criteria.Please note revised GLUCOSE reference range yklzvtgnd34/02/2018. 55-Jrz-204272:01 HEPATIC FUNCTION PANEL Comments: PATIENT WAS FASTINGPERFORMED BY: CHARLES WomplySanta Ana Health CenterSwafpk5655 [facility] [id number] (77143) ALT (SGPT) 22 [iU]/L (Normal) Range: 0-32 AST (SGOT) 27 [iU]/L (Normal) Range: 0-40 Alkaline Phosphatase 58 [iU]/L (Normal) Range: 39-117 Bilirubin, Direct 0.12 mg/dL (Normal) Range: 0.00-0.40 Bilirubin, Total 0.5 mg/dL (Normal) Range: 0.0-1.2 Albumin 4.4 g/dL (Normal) Range: 3.5-5.5 Protein, Total 7.6 g/dL (Normal) Range: 6.0-8.5 88-Rqd-898761:01 Lipid Panel (11439) Comments: PATIENT WAS FASTINGPERFORMED BY: [employer] Xwpmgo9473 [facility] [id number] LDL/HDL Ratio 2.9 {ratio} (Normal) Range: 0.0-3.2 Comments: LDL/HDL Ratio Men Women 1/2 Avg.Risk 1.0 1.5 Av g.Risk 3.6 3.2 2X Avg.Risk 6.2 5.0 3X Avg.Risk 8.0 6.1 LDL Cholesterol Calc 116 mg/dL (Abnormal) Range: 0-99 VLDL Cholesterol Daniel 44 mg/dL (Abnormal) Range: 5-40 HDL Cholesterol 40 mg/dL (Normal) Triglycerides 220 mg/dL (Abnormal) Range: 0-149 Cholesterol, Total 200 mg/dL (Abnormal) Range: 100-199 8-Bma-564849:04 Microscopic Examination Comments: PATIENT WAS FASTINGPERFORMED BY: WomplySaint Barnabas Behavioral Health CenterDfbjdb4308 [facility] [id number] Bacteria Few (Normal) Mucus Threads Present (Normal) Epithelial Cells (non renal) 0-10 {/hpf} (Normal) Range: 0 - 10 RBC 0-2 {/hpf} (Normal) Range: 0 - 2 WBC 6-10 {/hpf} (Abnormal) Range: 0 - 5 5-Leu-869796:04 Protein Electro, Random Urine Comments: PATIENT WAS FASTINGPERFORMED BY: WomplySanta Ana Health CenterWplovg8795 [facility] [id number] Please note: SPRCS (Normal) Comments: Protein electrophoresis scan will follow via computer, mail, orcourier delivery. M-Sukhwinder, % Comment: % (Normal) Comments: ASYMMETRICAL GAMMA Gamma Globulin, U 17.8 % (Normal) Beta Globulin, U 19.6 % (Normal) Hifya-7-Eorsxzpk, U 16.1 % (Normal) Jwgqk-8-Nliexqem, U 5.4 % (Normal) Albumin, U 41.1 % (Normal) Protein,Total,Urine 9.5 mg/dL (Normal) 90-Oaf-976733:00 HGB A1C (39926) Comments: do in 3months; PATIENT WAS FASTINGPERFORMED BY: Womply Fudmxy5560 [facility] [id number] Hemoglobin A1c 7.8 % (Abnormal) Range: 4.8-5.6 Comments: . Pre-diabetes: 5.7 - 6.4 Diabetes: >6.4 Glycemic control for adults with diabetes: <7.0 3-Jev-958670:04 HGB A1C (16047) Comments: PATIENT WAS FASTINGPERFORMED BY: WomplySaint Barnabas Behavioral Health CenterWkxpsm4080 [facility] [id number] Hemoglobin A1c 7.1 % (Abnormal) Range: 4.8-5.6 Comments: . Pre-diabetes: 5.7 - 6.4 Diabetes: >6.4 Glycemic control for adults with diabetes: <7.0 4-Dut-557142:04 YLXWP-MFORLEZEWMW-MTMKC (69694) Comments: PATIENT WAS FASTINGPERFORMED BY: Womply Wlxbsn8021 [facility] [id number] AFP, Serum, Tumor Marker 2.1 ng/mL (Normal) Range: 0.0-8.3 Comments: Aric ECLIA methodology 5-Ugh-738945:04 TSH (28279) Comments: PATIENT WAS FASTINGPERFORMED BY: Womply Rlasgy4082 [facility] [id number] TSH 3.660 {uIU/mL} (Normal) Range: 0.450-4.500 8-Lpl-508980:04 URINALYSIS, W/ MICRO (33463) Comments: PATIENT WAS FASTINGPERFORMED BY: WomplySaint Barnabas Behavioral Health CenterJhhsfp6414 [facility] [id number] Microscopic Examination See below: (Normal) Comments: Microscopic was indicated and was performed. Nitrite, Urine Negative (Normal) Urobilinogen,Semi-Qn 0.2 mg/dL (Normal) Range: 0.2-1.0 Bilirubin Negative (Normal) Occult Blood Negative (Normal) Ketones Negative (Normal) Glucose Negative (Normal) Protein Negative (Normal) WBC Esterase 1+ (Abnormal) Appearance Clear (Normal) Urine-Color Yellow (Normal) pH 5.0 (Normal) Range: 5.0-7.5 Specific [place] 1.020 (Normal) Range: 1.005-1.030 1-Xtm-017471:04 MICROALBUMIN: CREATININE RATIO Comments: PATIENT WAS FASTINGPERFORMED BY: WomplySaint Barnabas Behavioral Health CenterZzoynx4968 [facility] [id number] (44662) AND (81295) Alb/Creat Ratio 8.5 {mg/g_creat} (Normal) Range: 0.0-30.0 Albumin, Urine 11.4 ug/mL (Normal) Creatinine, Urine 134.1 mg/dL (Normal) 5-Psv-885212:04 LIPID PANEL (86118) Comments: PATIENT WAS FASTINGPERFORMED BY: WomplySaint Barnabas Behavior[facility] Health CenterSrwdfa9749 [facility] [id number] LDL/HDL Ratio 2.6 {ratio_units} (Normal) Range: 0.0-3.2 Comments: LDL/HDL Ratio Men Women 1/2 Avg.Risk 1.0 1.5 Av g.Risk 3.6 3.2 2X Avg.Risk 6.2 5.0 3X Avg.Risk 8.0 6.1 LDL Cholesterol Calc 135 mg/dL (Abnormal) Range: 0-99 VLDL Cholesterol Daniel 25 mg/dL (Normal) Range: 5-40 HDL Cholesterol 51 mg/dL (Normal) Triglycerides 127 mg/dL (Normal) Range: 0-149 Cholesterol, Total 211 mg/dL (Abnormal) Range: 100-199 5-She-653675:04 CALCIFEDIOL (60390) Comments: PATIENT WAS FASTINGPERFORMED BY: Womply Zoanco8345 [facility]in [place] [id number] Vitamin D, 25-Hydroxy 56.1 ng/mL (Normal) Range: 30.0-100.0 Comments: Vitamin D deficiency has been defined by the [place] of[place]icine and an Endocrine Society practice guideline as alevel of serum 25-OH vitamin D less than 20 ng/mL (1,2).The Endocrine Society went on to further define vitamin Dinsufficiency as a level between 21 and 29 ng/mL (2).1. IOM ([place] of Medicine). 2010. Dietary reference intakes for calcium and D. Real [place]: The National Academies Press.2. Mekhi MF, Dee Dee HADDAD, Fransisco HERNDON, et al. Evaluation, treatment, and prevention of vitamin D deficiency: an Endocrine Society clinical practice guideline. JCEM. 2010; 96(7):1911-30. 0-Ygw-497903:04 Serum Protein Electrophoresis Comments: PATIENT WAS FASTINGPERFORMED BY: [employer] Nksgrg6906 [facility] [id number] (SPEP) (60424) Please note: SPRCS (Normal) Comments: Protein electrophoresis scan will follow via computer, mail, orcourier delivery. A/G Ratio 0.9 (Normal) Range: 0.7-1.7 Globulin, Total 3.9 g/dL (Normal) Range: 2.2-3.9 M-Sukhwinder Not Observed g/dL (Normal) Gamma Globulin 1.3 g/dL (Normal) Range: 0.4-1.8 Beta Globulin 1.3 g/dL (Normal) Range: 0.7-1.3 Ygpgi-3-Mggydvhf 1.1 g/dL (Abnormal) Range: 0.4-1.0 Lxctt-6-Mxopchgh 0.3 g/dL (Normal) Range: 0.0-0.4 Albumin 3.4 g/dL (Normal) Range: 2.9-4.4 Protein, Total, Serum 7.3 g/dL (Normal) Range: 6.0-8.5 85-Cto-337650:43 Crystals, Body Fluid Comments: [facility] [address] [place], [place], [address] PATH REV Reviewed (Normal) Comments: Negative for malignant cells.Acute inflammation.A few crystals are oted (mixture of nondescript and calciumpyrophosphate).Clinical correlation necessary.Michelet Bills M.D. 09/26/17 AMENDED REPORT 1011 PATH REV previously reported as: Will follow SOURCE/BF SYNOVIAL (Normal) CRYSTALS/BF CALCIUM PYROPHOS (Normal) 60-Ubk-853243:43 Culture, Body Fluid Comments: [facility] [address] [place], [place], [address] CUBF See Note (Normal) Comments: List Antibiotics Last 48 Hours? UNKList Antibiotics to be Started? UNKComments: RIGHT KNEEGram StainCentrifuged Specimen? Culture performed on centrifuged specimen Gram Stain 3+ White Blood Cells No organisms seen Body Fluid CultNO GROWTH IN 14 DAYS Cult, AnaerobicNo growth in 5 days. 15-Ohl-853501:43 Synovial Fluid RBC, WBC AND Comments: [facility] [address] [place], [place], [address] Diff PATH COM/SYFL May follow (Normal) MONO [...] Yellow (Normal) SYNOVIAL SOURCE R KNEE (Normal) 1-Wyb-648210:51 CBC W/Diff, Automated Comments: [facility] [address] [place], [place], [address] Absolute Lymph 2.59 {X10_3/ul} (Normal) Range: 0.83-4.51 [...] 4.2-5.4 WBC 10.5 K/mm3 (Normal) Range: 4.4-11.0 7-Iug-798227:51 Comprehensive Metabolic Profil Comments: [facility] [address] [place], [place], [address] GAP 9 (Normal) Range: 5-15 CO2 26.0 mmol/L (Normal) Range: 21.0-32.0 CL 100 mmol/L (Normal) Range: 98-107 K 4.0 mmol/L (Normal) Range: 3.5-5.1 NA 135 mmol/L (Abnormal) Range: 136-145 T BILI 0.30 mg/dL (Normal) Range: 0.20-1.00 ALT 16 U/L (Normal) Range: 13-56 Comments: Please note revised ALT reference range /28/2018. ALK P 83 U/L (Normal) Range: 45-117 [...] 126 mg/dLsuggests DIABETES MELLITUS per A.D.A. criteria. 77-Feo-070500:41 CBC W/Diff, Automated Comments: [facility] [address] [place], [address] Absolute Lymph 2.10 {X10_3/ul} (Normal) Range: 0.83-4.51 [...] 4.2-5.4 WBC 9.4 K/mm3 (Normal) Range: 4.4-11.0 82-Yzh-703505:41 Comprehensive Metabolic Profil Comments: [facility] [address] [facility] [place], [place], [address] GAP 10 (Normal) Range: 5-15 CO2 27.0 [...] 126 mg/dLsuggests DIABETES MELLITUS per A.D.A. criteria. 39-Gic-852859:10 CBC W/Diff, Automated Comments: CMP,CBCD FOR DR HUTCHISON WELL [facility] [address] [place], [address] Absolute Lymph 2.93 {X10_3/ul} (Normal) Range: 0.83-4.51 [...] 4.2-5.4 WBC 8.5 K/mm3 (Normal) Range: 4.4-11.0 67-Uga-023542:10 Comprehensive Metabolic Profil Comments: CMP,CBCD FOR DR HUTCHISON WELL [facility] [address] [place], [place], [address] GAP 9 (Normal) Range: 5-15 CO2 26.0 [...] 126 mg/dLsuggests DIABETES MELLITUS per A.D.A. criteria. 04-Goq-812458:10 Lipid Profile Comments: CMP,CBCD FOR DR HUTCHISON WELL [facility] [address] [place], [address] VLDL 36 mg/dL (Normal) Range: [...] 200-240 mg/dL Borderline >240 mg/dL High Risk 29-Kst-955113:10 Microalb:Creat Ratio,Random UR Comments: CMP,CBCD FOR DR HUTCHISON WELL [facility] [address] [place], [address] MALB:CREAT 13.6 {mg/g_CRE} (Normal) MICROALBUMIN,UR 16.9 mg/L (Normal) UR CREAT 124.00 mg/dL (Normal) 45-Dnb-094937:10 Thyroid Stim Hormone (TSH) Comments: CMP,CBCD FOR DR HUTCHISON WELL [facility] [address] [place], [address] TSH 1.11 {uIU/mL} (Normal) Range: 0.358-3.74 94-Hcw-228183:10 Urinalysis, Complete Comments: CMP,CBCD FOR DR HUTCHISON WELL Sakshi was Urine Obtained? [facility] [address] [place], [address] MUCUS, URINE 0 SEEN {/hpf} [...] CLARITY Sl. Cloudy (Normal) COLOR Yellow (Normal) 76-Qfm-566654:10 Vitamin D,25 Hydroxy Comments: CMP,CBCD FOR DR HUTCHISON WELL [facility] T[address]angflgf3513 [facility] [place], [place], [address] Vitamin D 25-OH 108.1 ng/mL (Normal) Comments: [...] is nointerference with Vitamin D test results. 34-Dzb-988701:59 HgA1C , Office (83244) HgA1C , Office 7.3 % (Abnormal) Range: 4.6 - 7.1 43-Yjp-644333:59 Blood Glucose , Office (83112) Blood Glucose , Office 192 (Normal) 32-Ogo-608742:16 Rapid Flu (75249 x 2) Influenza A Ag neg a and b (Normal) 7-Dyj-844131:14 URINE LISANDRO CULTURE-IDENTIFICATN Comments: PATIENT NOT FASTINGPERFORMED BY: CHARLES [facility] Jazzgq8431 [facility] [id number] Information: SRC:UC (63914) Result 1 MUG (Normal) Comments: Mixed urogenital flora10,000-25,000 colony forming units per mL Urine Final report (Normal) Culture,Comprehensive 1-Yhh-518791:00 Urinalysis, Office (57749) UA - LEUKOCYTE ESTERASE Trace (Normal) UA - NITRITE Negative (Normal) URINE UROBILINGN NHAN TIMED Normal mg/dL (Normal) UA - PROTEIN Negative mg/dL (Normal) UA - PH 5 (Abnormal) UA - BLOOD Negative (Normal) UA - SPECIFIC GRAVITY 1.025 (Normal) UA - KETONES Negative mg/dL (Normal) UA - BILIRUBIN Small (Normal) UA - GLUCOSE Negative (Normal) 3-Czg-249724:59 Blood Glucose , Office (12346) Blood Glucose , Office 117 (Normal) 7-Kpi-450809:06 Rapid Flu (55195 x 2) Influenza A Ag neg (Normal) :04 HgA1C , Office (10995) HgA1C , Office 6.9 % (Normal) Range: 4.6 - 7.1 :04 Blood Glucose , Office (28442) Blood Glucose , Office 153 (Normal) 7-Lrv-193590:11 CBC W/Diff, Automated Comments: [facility] [address] [place], [place], [address] Absolute Lymph 2.54 {X10_3/ul} (Normal) Range: 0.83-4.51 [...] 4.2-5.4 WBC 7.8 K/mm3 (Normal) Range: 4.4-11.0 7-Hfr-324815:11 Comprehensive Metabolic Profil Comments: [facility] [address] [place], [place], [address] GAP 6 (Normal) Range: 5-15 CO2 29.0 [...] 200 mg/dLsuggests DIABETES MELLITUS per A.D.A. criteria. 90-Zre-096734:47 Pap IG, HPV-hr Comments: No. of containers..01 CYTYC Thin Prep VialPERFORMED BY: WB [employer]Co[employer]120 [facility] [place] W [id number] BY: =G [facility] Tvslvpnrsc611 [facility] [place] W [id number] Information: [id number] HPV, high-risk Negative Comments: This high-risk HPV [...] squamous metaplasticcells (endocervical component) are present.Z01.419Z11.51Leslie Muñoz Dog Breeder (ASCP) :56 HgA1C , Office (54548) HgA1C , Office 6.4 % (Normal) Range: 4.6 - 7.1 :56 Blood Glucose , Office (35743) Blood Glucose , Office 132 (Normal) :21 Microscopic Examination Comments: PATIENT WAS FASTINGPERFORMED BY: [facility] Yvbixh0124 Aleman RoadDuCone Health MedCenter [facility] [id number] Bacteria None seen (Normal) Mucus Threads Present (Normal) Cast Type Hyaline casts (Normal) Casts Present {/lpf} (Abnormal) Epithelial Cells (non renal) 0-10 {/hpf} (Normal) Range: 0 - 10 RBC 0-2 {/hpf} (Normal) Range: 0 - 2 WBC 0-5 {/hpf} (Normal) Range: 0 - 5 :15 CBC W/Diff, Automated Comments: [facility] [address], [place], [address] Absolute Lymph 3.05 {X10_3/ul} (Normal) Range: 0.83-4.51 [...] 4.2-5.4 WBC 9.4 K/mm3 (Normal) Range: 4.4-11.0 01-Dxj-059299:15 Comprehensive Metabolic Profil Comments: [facility] [address] [place], [place], [address] GAP 8 (Normal) Range: 5-15 CO2 27.0 [...] HOMEOSTASIS per A.D.A. criteria. :15 Lipase Comments: [facility] X[address]pkga[address] [place], [place], [address] LIPASE 206 U/L (Normal) Range: 73-393 :54 CBC W/Diff, Automated Comments: [facility] [address] [place], [place], [address] Absolute Lymph 2.75 {X10_3/ul} (Normal) Range: 0.83-4.51 [...] 4.2-5.4 WBC 5.7 K/mm3 (Normal) Range: 4.4-11.0 8-Dig-345071:54 Comprehensive Metabolic Profil Comments: [facility] [address] [place], [address] GAP 6 (Normal) Range: 5-15 CO2 30.0 [...] <126 mg/dLsuggests IMPAIRED HOMEOSTASIS per A.D.A. criteria. 9-Lvc-767191:21 CALCIFIDIOL (03619) VIT D 25 Comments: PATIENT WAS FASTINGPERFORMED BY: [facility] Xyyctn5858 [facility] [id number] Vitamin D, 25-Hydroxy 114.0 ng/mL (Abnormal) Range: 30.0-100.0 Comments: Vitamin D deficiency has been defined by the [place] of[place]icine and an Endocrine Society practice guideline as alevel of serum 25-OH vitamin D less than 20 ng/mL (1,2).The Endocrine Society went on to further define vitamin Dinsufficiency as a level between 21 and 29 ng/mL (2).1. IOM ([place] of Medicine). 2010. Dietary reference intakes for calcium and D. Real [place]: The National Academies Press.2. Mekhi MF, Dee Dee HADDAD, Fransisco HERNDON, et al. Evaluation, treatment, and prevention of vitamin D deficiency: an Endocrine Society clinical practice guideline. JCEM. 2010; 96(7):1911-30. :21 TSH (51921) Comments: PATIENT WAS FASTINGPERFORMED BY: [employer] [place] [id number] TSH 2.730 {uIU/mL} (Normal) Range: 0.450-4.500 :21 URINALYSIS, W/ MICRO (73349) Comments: PATIENT WAS FASTINGPERFORMED BY: [employer]70 [facility] [id number] Microscopic Examination See below: (Normal) Comments: Microscopic was indicated and was performed. Nitrite, Urine Negative (Normal) Urobilinogen,Semi-Qn 0.2 mg/dL (Normal) Range: 0.2-1.0 Bilirubin Negative (Normal) Occult Blood Negative (Normal) Ketones Negative (Normal) Glucose Negative (Normal) Protein Negative (Normal) WBC Esterase Trace (Abnormal) Appearance Clear (Normal) Urine-Color Yellow (Normal) pH 6.0 (Normal) Range: 5.0-7.5 Specific [place] 1.020 (Normal) Range: 1.005-1.030 :21 MICROALBUMIN: CREATININE RATIO Comments: PATIENT WAS FASTINGPERFORMED BY: [employer]70 [facility] [id number] (13773) AND (36438) Microalb/Creat Ratio 5.3 {mg/g_creat} (Normal) Range: 0.0-30.0 Microalbumin, Urine 7.4 ug/mL (Normal) Creatinine, Urine 139.7 mg/dL (Normal) 7-Aic-412662:21 METABOLIC PANEL, COMPREHENSIVE Comments: PATIENT WAS FASTINGPERFORMED BY: CHARLES [facility] Fdagsw5703 [facility] [id number] (52927) ALT (SGPT) 20 [iU]/L (Normal) Range: 0-32 [...] Glucose, Serum 155 mg/dL (Abnormal) Range: 65-99 :21 CBC W/AUTO DIFF WBC Comments: PATIENT WAS FASTINGPERFORMED BY: LabCoSaint Barnabas Behavioral Health CenterCpjayp2242 [facility] [id number] Information: [id number] (99713) Immature Grans (Abs) 0.0 {x10E3/uL} (Normal) Range: [...] (Normal) Range: 3.4-10.8 :07 HgA1C , Office (41251) HgA1C , Office 5.8 % (Normal) Range: 4.6 - 7.1 :07 Blood Glucose , Office (73598) Blood Glucose , Office 92 (Normal) :05 HgA1C , Office (12734) HgA1C , Office 6.6 % (Normal) Range: 4.6 - 7.1 :05 Blood Glucose , Office (26199) Blood Glucose , Office 130 (Normal) :46 CBC W/Diff, Automated Comments: [facility] [address] [place], [place], [address] Absolute Lymph 3.03 {X10_3/ul} (Normal) Range: 0.83-4.51 [...] 4.2-5.4 WBC 7.2 K/mm3 (Normal) Range: 4.4-11.0 :46 Comprehensive Metabolic Profil Comments: [facility] [address] [place], [address] GAP 7 (Normal) Range: 5-15 CO2 29.0 [...] A.D.A. criteria. :09 Blood Glucose , Office (25133) Blood Glucose , Office 181 (Normal) :09 HgA1C , Office (01345) HgA1C , Office 7.1 % (Normal) Range: 4.6 - 7.1 2-Egn-069046:50 AFP, Tumor Marker Comments: Is Patient ? NComments: [facility] (refer to report for specific site)refer to report for address and phone number AFP TUMOR 2253 1.6 ng/mL (Normal) Range: 0.0-8.3 Comments: Enclarity ECLIA methodologyPerformed at: CB - [facility] [address] [id number] Director: Herve Mata PhD, Phone: [phone] 0-Wxv-525315:50 CBC W/Diff, Automated Comments: [facility] [address] [place], [address] Absolute Lymph 3.23 {X10_3/ul} (Normal) Range: 0.83-4.51 [...] 4.2-5.4 WBC 7.6 K/mm3 (Normal) Range: 4.4-11.0 6-Qey-304788:50 Comprehensive Metabolic Profil Comments: Comments: [facility] [address] [place], [place], [address] GAP 6 (Normal) Range: 5-15 CO2 28.0 [...] <126 mg/dLsuggests IMPAIRED HOMEOSTASIS per A.D.A. criteria. 9-Ylp-224920:50 Lipid Profile Comments: Comments: [facility] [address] [place], [place], [address] VLDL 34 mg/dL (Normal) Range: 5-40 LDL [...] 200-240 mg/dL Borderline >240 mg/dL High Risk :50 Microalb:Creat Ratio,Random UR Comments: [facility] [address] [place], [place], [address] MALB:CREAT 15.3 {mg/g_CRE} (Normal) MICROALBUMIN,UR 20.4 mg/L (Normal) UR CREAT 133.00 mg/dL (Normal) :50 Prothrombin Time w/INR Comments: [facility] [address] [place], [address] INR 0.9 (Normal) PROTIME 12.8 s (Normal) Range: 11.7-14.9 :50 Thyroid Stim Hormone (TSH) Comments: Comments: [facility] [address] [place], [address] TSH 1.00 {uIU/mL} (Normal) Range: 0.358-3.74 :50 Urinalysis, Complete Comments: Comments: NHow was Urine Obtained? Urine, [facility]WMcC[facility] [address] [place], [address] MUCUS, URINE 0 SEEN {/hpf} (Normal) [...] (Normal) CLARITY Clear (Normal) COLOR Yellow (Normal) 7-Foy-843534:50 Vitamin D,25 Hydroxy Comments: [facility] [address] [place], [address] Vitamin D 25-OH 81.8 ng/mL (Normal) Comments: Vitamin D 25(OH) Status Range Deficiency <20 ng/mL (50nmol/L) Insuffciency 20 - 30 ng/mL (50 - 75 nmol/L) Sufficiency 30 - 100 ng/mL (75 - 250 nmol/L) Toxicity >100 ng/mL (>250 nmol/L) 9-Izd-169123:27 HPV automatic Comments: Source.............Cervical;EndocervicalNo. of containers..01 CYTYC Thin Prep VialPATIENT NOT FASTINGPERFORMED BY: WB [facility] Irwensatje817 [facility] [id number] BY: =G L (97255) [facility] Irktiudmrp858 [facility] [place] [id number] Information: [id number] HPV, high-risk Negative Comments: This high-risk HPV [...] metaplasticcells (endocervical component) are present.V70.0Samantha Agnieszka cotter, Dog Breeder ([facility]) 20-Pgd-546473:27 Amylase (08951) Comments: PATIENT NOT FASTINGPERFORMED BY: [facility] Pzgzyo9857 [facility] [id number] Amylase, Serum 58 U/L (Normal) Range: 31-124 25-Fah-158833:27 Lipase (33289) Comments: PATIENT NOT FASTINGPERFORMED BY: [facility] Lwudua8523 [facility] [id number] Lipase, Serum 46 U/L (Normal) Range: 0-59 11-Jcf-672772:27 Sed Rate Erythrocyte (01256) Comments: PATIENT NOT FASTINGPERFORMED BY: LabCoSaint Barnabas Behavioral Health CenterPjhtrp0640 [facility] [id number] Sedimentation Rate-Westergren 21 mm/h (Normal) Range: 0-40 93-Bfi-885862:27 Metabolic Panel, Comprehensive Comments: PATIENT NOT FASTINGPERFORMED BY: LabCoSaint Barnabas Behavioral Health CenterCnunwj6717 [facility] [id number] (89862) ALT (SGPT) 16 [iU]/L (Normal) Range: 0-32 [...] Glucose, Serum 177 mg/dL (Abnormal) Range: 65-99 28-Zlx-191466:27 CBC with auto diff Comments: PATIENT NOT FASTINGPERFORMED BY: LabCoSaint Barnabas Behavioral Health CenterZwfbsh1939 [facility] [id number] Information: [id number] (82101) Immature Grans (Abs) 0.0 {x10E3/uL} (Normal) Range: [...] (Normal) Range: 3.4-10.8 :04 HgA1C , Office (69206) HgA1C , Office 6.3 % (Normal) Range: 4.6 - 7.1 :04 Blood Glucose , Office (76270) Blood Glucose , Office 131 (Normal) :21 CBC W/Diff, Automated Comments: Test performed at:[facility] [id number] [place] [address] Absolute Lymph 3.64 {X10_3/ul} (Normal) Range: 0.83-4.51 [...] 4.2-5.4 WBC 7.7 K/mm3 (Normal) Range: 4.4-11.0 14-Mar-20158:21 Comprehensive Metabolic Profil Comments: Test performed at:[facility] [id number] [place] [address] GAP 9 (Normal) Range: 5-15 [...] Comments: Please note revised CREATININE reference range jeqsbdrjp06/22/2015. BUN 16 mg/dL (Normal) Range: 7-18 GLU 100 mg/dL (Normal) Range: 70-110 73-Jdm-[id number]:45 Basic Metabolic Profile (BMP) Comments: Test performed at:[facility] [address] [place] [address] GAP 11 (Normal) Range: 5-15 CO2 22.0 [...] 126 mg/dLsuggests DIABETES MELLITUS per A.D.A. criteria. 96-Tlq-64116:45 CBC W/Diff, Automated Comments: Test performed at:[facility] [address] [place], [place] [id number] Absolute Lymph 2.61 {X10_3/ul} (Normal) Range: 0.83-4.51 [...] Range: 4.4-11.0 :45 Lipase Comments: Test performed at:[facility] [address] [facility] [place] [address] LIPASE 229 U/L (Normal) Range: 70-290 :45 Liver Profile Comments: Test performed at:[facility] Gmvykvxalm6042 [facility] [address] D BILI 0.11 mg/dL (Normal) Range: 0.00-0.30 T BILI 0.60 mg/dL (Normal) Range: 0.20-1.00 ALT 22 U/L (Normal) Range: 12-78 ALK P 103 U/L (Normal) Range: 50-136 AST 19 U/L (Normal) Range: 15-37 GLOB 5.3 g/dL (Abnormal) Range: 2.7-4.2 ALB 4.0 g/dL (Normal) Range: 3.4-5.0 T PROT 9.3 g/dL (Abnormal) Range: 6.4-8.2 :04 HgA1C , Office (47448) HgA1C , Office 6.2 % (Normal) Range: 4.6 - 7.1 :04 Blood Glucose , Office (40145) Blood Glucose , Office 124 (Normal) 78-Lgp-208830:39 CBC With Differential/Platelet Comments: PATIENT WAS FASTINGPERFORMED BY: LabCoSaint Barnabas Behavioral Health CenterSuyufu6062 [facility] [id number] Information: [id number] Immature Grans (Abs) 0.0 {x10E3/uL} (Normal) Range: [...] 3.77-5.28 WBC 8.3 {x10E3/uL} (Normal) Range: 3.4-10.8 80-Jae-861951:39 Comp. Metabolic Panel (14) Comments: PATIENT WAS FASTINGPERFORMED BY: LabCoSaint Barnabas Behavioral Health CenterFabedy8131 [facility] [id number] ALT (SGPT) 14 [iU]/L (Normal) Range: 0-32 [...] Glucose, Serum 88 mg/dL (Normal) Range: 65-99 38-Iog-354087:39 Lipid Panel With LDL/HDL Comments: PATIENT WAS FASTINGPERFORMED BY: [facility] [id number] Ratio LDL/HDL Ratio 3.2 {ratio_units} (Normal) Range: [...] Cholesterol, Total 229 mg/dL (Abnormal) Range: 100-199 09-Pid-527363:39 Microalb/Creat Ratio, Randm Ur Comments: PATIENT WAS FASTINGPERFORMED BY: [facility] [id number] Microalb/Creat Ratio 9.6 {mg/g_creat} (Normal) Range: 0.0-30.0 Microalbumin, Urine 25.3 ug/mL (Abnormal) Range: 0.0-17.0 Creatinine, Urine 263.9 mg/dL (Normal) Range: 15.0-278.0 :39 Microscopic Examination Comments: PATIENT WAS FASTINGPERFORMED BY: [facility] & GasLee'S Summit HospitalOtubsj3257 [facility] [id number] Bacteria Few (Normal) Mucus Threads Present (Normal) Epithelial Cells (non 0-10 {/hpf} Range: 0 - 10 renal) (Normal) RBC 0-2 {/hpf} (Normal) Range: 0 - 2 WBC 11-30 {/hpf} Range: 0 - 5 (Abnormal) TSH 2.990 {uIU/mL} Comments: PATIENT WAS FASTINGPERFORMED BY: Womply Bqtfdx7461 [facility] [id number] 5:39 (Normal) Range: 0.450-4.500 :39 Urinalysis, Complete Comments: PATIENT WAS FASTINGPERFORMED BY: Womply Nglulc3577 [facility] [id number] Microscopic Examination See below: (Normal) Comments: Microscopic was indicated and was performed. Nitrite, Urine Negative (Normal) Urobilinogen,Semi-Qn 0.2 mg/dL (Normal) Range: 0.0-1.9 Bilirubin Negative (Normal) Occult Blood Negative (Normal) Ketones Negative (Normal) Glucose Negative (Normal) Protein Negative (Normal) WBC Esterase 1+ (Abnormal) Appearance Clear (Normal) Urine-Color Yellow (Normal) pH 5.0 (Normal) Range: 5.0-7.5 Specific [place] 1.025 (Normal) Range: 1.005-1.030 Vitamin D, 25-Hydroxy 85.8 ng/mL (Normal) Comments: PATIENT WAS FASTINGPERFORMED BY: [facility] GasBeaumont Hospital6370 [facility] [id number] 5:39 Range: 30.0-100.0 Comments: Vitamin D deficiency has been defined by the [place] ofMedicine and an Endocrine Society practice guideline as alevel of serum 25-OH vitamin D less than 20 ng/mL (1,2).The Endocrine Society went on to further define vitamin Dinsufficiency as a level between 21 and 29 ng/mL (2).1. IOM ([place] of Medicine). 2010. Dietary reference intakes for calcium and D. Real [place]: The National Academies Press.2. Mekhi MF, [place], Fransisco HERNDON, et al. Evaluation, treatment, and prevention of vitamin D deficiency: an Endocrine Society clinical practice guideline. JCEM. 2010; 96(7):1911-30. :49 CBC W/Diff, Automated Comments: Test performed at:[facility] Mktegjmxfr4498 [facility] [place] [address]. [place], [place] [address] Absolute Lymph 3.72 {X10_3/ul} (Normal) Range: 0.83-4.51 [...] :49 Comprehensive Metabolic Profil Comments: Test performed at:[facility] Mkcvuypbxl89[address] [place] [address] GAP 7 (Normal) Range: 5-15 CO2 30.0 [...] 126 mg/dLsuggests DIABETES MELLITUS per A.D.A. criteria. 9-Ztr-549516:31 Sed Rate Erythrocyte (15789) Comments: PATIENT NOT FASTINGPERFORMED BY: LabCo Qeexam2266 [facility] [id number] Sedimentation Rate-Westergren 33 mm/h (Normal) Range: 0-40 4-Xfx-066623:31 METABOLIC PANEL, COMPREHENSIVE Comments: PATIENT NOT FASTINGPERFORMED BY: LabAllmyappsSanta Ana Health CenterGzuaho5128 [facility] [id number] (83134) ALT (SGPT) 14 [iU]/L (Normal) Range: 0-32 [...] Glucose, Serum 107 mg/dL (Abnormal) Range: 65-99 1-Kco-860864:31 CBC W/AUTO DIFF WBC Comments: PATIENT NOT FASTINGPERFORMED BY: LabCo Njybxl1257 [facility] [id number] Information: [id number] (85105) Immature Grans (Abs) 0.0 {x10E3/uL} (Normal) Range: [...] (Normal) Range: 3.4-10.8 :18 HgA1C , Office (87465) HgA1C , Office 6.2 % (Normal) Range: 4.6 - 7.1 :18 Blood Glucose , Office (11713) Blood Glucose , Office 131 (Normal) :12 CBC W/AUTO DIFF WBC Comments: PATIENT WAS FASTINGPERFORMED BY: [facility]6370 [facility] [id number] Information: [id number] (90819) Immature Grans (Abs) 0.0 {x10E3/uL} (Normal) Range: [...] 3.77-5.28 WBC 6.4 {x10E3/uL} (Normal) Range: 3.4-10.8 73-Pcq-45646:12 METABOLIC PANEL, COMPREHENSIVE Comments: PATIENT WAS FASTINGPERFORMED BY: LabCoSaint Barnabas Behavioral Health CenterOjkfxj2711 [facility] [id number] (23696) ALT (SGPT) 28 [iU]/L (Normal) Range: 0-32 [...] mg/dL (Normal) Range: 65-99 :12 LIPID PANEL (33925) Comments: PATIENT WAS FASTINGPERFORMED BY: LabCoSaint Barnabas Behavioral Health CenterRplnib2105 [facility] [id number] LDL/HDL Ratio 1.9 {ratio_units} (Normal) Range: 0.0-3.2 [...] (Normal) Range: 100-199 :44 HgA1C , Office (28679) HgA1C , Office 6.1 % (Normal) Range: 4.6 - 7.1 3-Hro-786160:24 CBCD ALC 2.61 {X10_3/ul} (Normal) Range: 0.83-4.51 [...] 4.2-5.4 WBC 4.5 K/mm3 (Normal) Range: 4.4-11.0 9-Bqt-326966:24 CMP GAP 5 (Normal) Range: 5-15 CO2 [...] (Normal) Range: 70-110 :36 HgA1C , Office (23556) HgA1C , Office 7.5 % (Abnormal) Range: 4.6 - 7.1 :36 Blood Glucose , Office (17227) Blood Glucose , Office 150 (Normal) :05 CALCIFIDIOL (58048) VIT D 25 Comments: PATIENT WAS FASTINGPERFORMED BY: Womply Bqqepa8815 [facility] [id number] Vitamin D, 25-Hydroxy 75.4 ng/mL (Normal) Range: 30.0-100.0 Comments: Vitamin D deficiency has been defined by the [place] ofOhio[facility] Hospitalcine and an Endocrine Society practice guideline as alevel of serum 25-OH vitamin D less than 20 ng/mL (1,2).The Endocrine Society went on to further define vitamin Dinsufficiency as a level between 21 and 29 ng/mL (2).1. IOM ([place] of Medicine). 2010. Dietary reference intakes for calcium and D. Real [place]: The National Academies Press.2. Mekhi MF, Dee Dee HADDAD, Fransisco HERNDON, et al. Evaluation, treatment, and prevention of vitamin D deficiency: an Endocrine Society clinical practice guideline. JCEM. 2010; 96(7):1911-30. :05 LIPID PANEL (34188) Comments: PATIENT WAS FASTINGPERFORMED BY: WomplySaint Barnabas Behavioral Health CenterLrenwu0017 [facility] [id number] Information: [id number] LDL/HDL Ratio 3.4 {ratio_units} (Abnormal) Range: 0.0-3.2 [...] Cholesterol, Total 232 mg/dL (Abnormal) Range: 100-199 :51 CBCD ALC 3.00 {X10_3/ul} (Normal) Range: 0.83-4.51 [...] 4.2-5.4 WBC 6.9 K/mm3 (Normal) Range: 4.4-11.0 39-Vet-244782:51 CMP GAP 5 (Normal) Range: 5-15 CO2 [...] mg/dLsuggests DIABETES MELLITUS per A.D.A. criteria. :52 XZVKQ-ZDNEWXXIXMC-GPXNG (89697) Comments: PATIENT NOT FASTINGPERFORMED BY: [facility]6370 [facility] [id number] AFP, Serum, Tumor Marker 1.9 ng/mL (Normal) Range: 0.0-8.3 Comments: Aric ECLIA methodology :52 PTT (Activated Partial Comments: PATIENT NOT FASTINGPERFORMED BY: [facility]6370 [facility] [id number] Thromboplastin Time) (96428) aPTT 28 {sec} (Normal) Range: 24-33 Comments: This test has not been validated for monitoring unfractionated heparintherapy. aPTT-based therapeutic ranges for unfractionated heparintherapy have not been established. For general guidelines onHeparin monitoring, refer to the [employer] GasMiss[facility] Directory of Services. 87-Vin-07820:52 PT (Prothrobim Time) Comments: PATIENT NOT FASTINGPERFORMED BY: [facility]6370 [facility] [id number] Information: [id number] (10092) Prothrombin Time 11.1 {sec} (Normal) Range: 9.1-12.0 INR 1.1 (Normal) Range: 0.8-1.2 Comments: Reference interval is for non-anticoagulated patients. . Suggested INR therapeutic range for Vitamin K anta gonist therapy: Standard Dose (moderate intensity therapeutic range): 2.0 - 3.0 Higher intensity therapeutic range 2.5 - 3.5 42-Npr-158612:05 Microscopic Examination Comments: PATIENT WAS FASTINGPERFORMED BY: [facility]6370 [facility] [id number] Bacteria Few (Normal) Mucus Threads Present (Normal) Epithelial Cells (non renal) 0-10 {/hpf} (Normal) Range: 0 - 10 RBC 0-3 {/hpf} (Normal) Range: 0 - 3 Comments: Effective January 10, 2014 the reference interval for RBC will be changing to: 0 - 2 /hpf. WBC 11-30 {/hpf} (Abnormal) Range: 0 - 5 83-Zvf-99434:00 Vitamin D Hydroxy (58412) Comments: PATIENT WAS FASTINGPERFORMED BY: [facility]6370 [facility] [id number] Vitamin D, 25-Hydroxy 16.4 ng/mL (Abnormal) Range: 30.0-100.0 Comments: Vitamin D deficiency has been defined by the [place] of[place]icine and an Endocrine Society practice guideline as alevel of serum 25-OH vitamin D less than 20 ng/mL (1,2).The Endocrine Society went on to further define vitamin Dinsufficiency as a level between 21 and 29 ng/mL (2).1. IOM ([place] of Medicine). 2010. Dietary reference intakes for calcium and D. Real [place]: The National Academies Press.2. Mekhi MF, [place], Fransisco HERNDON, et al. Evaluation, treatment, and prevention of vitamin D deficiency: an Endocrine Society clinical practice guideline. JCEM. 2010; 96(7):1911-30. TSH (45640) Comments: PATIENT WAS FASTINGPERFORMED BY: [facility]6370 [facility] [id number] TSH 2.300 {uIU/mL} (Normal) Range: 0.450-4.500 URINALYSIS, W/ MICRO (04087) Comments: PATIENT WAS FASTINGPERFORMED BY: [facility]6370 [facility] [id number] Microscopic Examination See below: (Normal) Nitrite, Urine Negative (Normal) Urobilinogen,Semi-Qn 0.2 mg/dL (Normal) Range: 0.0-1.9 Bilirubin Negative (Normal) Ketones Negative (Normal) Occult Blood Negative (Normal) Glucose Negative (Normal) Protein Negative (Normal) WBC Esterase 2+ (Abnormal) Appearance Clear (Normal) Urine-Color Yellow (Normal) pH 5.5 (Normal) Range: 5.0-7.5 Specific [place] 1.020 (Normal) Range: 1.005-1.030 MICROALBUMIN: CREATININE RATIO Comments: PATIENT WAS FASTINGPERFORMED BY: [facility]6370 [facility] [id number] (41399) AND (90113) Microalb/Creat Ratio 17.6 {mg/g_creat} (Normal) Range: 0.0-30.0 Microalbumin, Urine 23.6 ug/mL (Abnormal) Range: 0.0-17.0 Creatinine, Urine 134.3 mg/dL (Normal) Range: 15.0-328.0 METABOLIC PANEL, COMPREHENSIVE Comments: PATIENT WAS FASTINGPERFORMED BY: [facility]6370 [facility] [id number] (35751) ALT (SGPT) 32 [iU]/L (Normal) Range: 0-32 [...] mg/dL (Abnormal) Range: 65-99 :00 LIPID PANEL (91338) Comments: PATIENT WAS FASTINGPERFORMED BY: [employer]70 [facility] [id number] LDL/HDL Ratio 2.8 {ratio_units} (Normal) Range: 0.0-3.2 [...] MANUAL DIFF Comments: PATIENT WAS FASTINGPERFORMED BY: Present6370 [facility] [id number] Information: [id number] (09429) Immature Grans (Abs) 0.0 {x10E3/uL} (Normal) Range: [...] (Normal) Range: 3.4-10.8 :55 HgA1C , Office (66803) HgA1C , Office 6.6 % (Normal) Range: 4.6 - 7.1 :55 Blood Glucose , Office (08990) Blood Glucose , Office 169 (Normal) :22 HgA1C , Office (96442) HgA1C , Office 6.3 % (Normal) Range: 4.6 - 7.1 :22 Blood Glucose , Office (75330) Blood Glucose , Office 131 (Normal) 21-Rho-732790:16 TSH (03060) Comments: PATIENT WAS FASTINGPERFORMED BY: [facility]Beaumont Hospital6370 [facility] [id number] TSH 2.790 {uIU/mL} (Normal) Range: 0.450-4.500 50-Wqc-774373:16 Lipid Panel (48484) Comments: PATIENT WAS FASTINGPERFORMED BY: [employer] [id number] Information: ADD [id number] AND DRAW FEE 99 6660 LDL/HDL Ratio 2.8 {ratio_units} (Normal) Range: 0.0-3.2 LDL Cholesterol Calc 130 mg/dL (Abnormal) Range: 0-99 VLDL Cholesterol Daniel 30 mg/dL (Normal) Range: 5-40 HDL Cholesterol 47 mg/dL (Normal) Comments: According to ATP-III Guidelines, HDL-C >59 mg/dL is considered anegative risk factor for CHD. Triglycerides 151 mg/dL (Abnormal) Range: 0-149 Cholesterol, Total 207 mg/dL (Abnormal) Range: 100-199 9-Fie-106253:34 Microscopic Examination Comments: PATIENT NOT FASTINGPERFORMED BY: WomplySaint Barnabas Behavioral Health CenterPlqhcm7840 [facility] [id number] Bacteria None seen (Normal) Mucus Threads Present (Normal) Epithelial Cells (non renal) 0-10 {/hpf} (Normal) Range: 0 - 10 RBC None seen {/hpf} (Normal) Range: 0 - 3 WBC 11-30 {/hpf} (Abnormal) Range: 0 - 5 6-Mzh-555238:34 TSH (56768) Comments: PATIENT NOT FASTINGPERFORMED BY: [facility]6370 [facility] [id number] TSH 2.010 {uIU/mL} (Normal) Range: 0.450-4.500 6-Juy-715151:34 URINALYSIS, W/ MICRO (69184) Comments: PATIENT NOT FASTINGPERFORMED BY: [facility]Be[facility] Hospital6370 [facility] [id number] Microscopic Examination See below: (Normal) Nitrite, Urine Negative (Normal) Bilirubin Negative (Normal) Urobilinogen,Semi-Qn 0.2 mg/dL (Normal) Range: 0.0-1.9 Occult Blood Negative (Normal) Glucose Negative (Normal) Ketones Negative (Normal) Protein Negative (Normal) WBC Esterase Trace (Abnormal) Appearance Clear (Normal) Urine-Color Yellow (Normal) pH 5.5 (Normal) Range: 5.0-7.5 Specific [place] 1.020 (Normal) Range: 1.005-1.030 :34 MICROALBUMIN: CREATININE RATIO Comments: PATIENT NOT FASTINGPERFORMED BY: [facility] ClubSaint Barnabas Behavioral Health CenterVaaosk3212 [facility] [id number] (37469) AND (74520) Microalb/Creat Ratio 4.2 {mg/g_creat} (Normal) Range: 0.0-30.0 Microalbumin, Urine 6.3 ug/mL (Normal) Range: 0.0-17.0 Creatinine, Urine 150.8 mg/dL (Normal) Range: 15.0-278.0 :34 METABOLIC PANEL, COMPREHENSIVE Comments: PATIENT NOT FASTINGPERFORMED BY: [facility] Direct ClubSaint Barnabas Behavioral Health CenterMolgeq6960 [facility] [id number] (89736) ALT (SGPT) 73 [iU]/L (Abnormal) Range: 0-32 [...] Glucose, Serum 136 mg/dL (Abnormal) Range: 65-99 :34 LIPID PANEL (82955) Comments: PATIENT NOT FASTINGPERFORMED BY: [employer] Jvlicn3611 [facility] [id number] LDL/HDL Ratio 2.5 {ratio_units} (Normal) Range: 0.0-3.2 [...] MANUAL DIFF Comments: PATIENT NOT FASTINGPERFORMED BY: WomplySaint Barnabas Behavioral Health CenterNoosco3052 [facility] [id number] Information: [id number] (40549) Immature Grans (Abs) 0.0 {x10E3/uL} (Normal) Range: [...] (Normal) Range: 3.4-10.8 :28 HgA1C , Office (62532) HgA1C , Office 7.1 % (Normal) Range: 4.6 - 7.1 :28 Blood Glucose , Office (61683) Blood Glucose , Office 144 (Normal) 45-Usq-548344:05 HPV automatic Comments: Source.............Cervical;EndocervicalNo. of containers..01 CYTYC Thin Prep VialPATIENT NOT FASTINGPERFORMED BY: WB [facility] [address] [id number] BY: =G L (42897) [facility] Qukcaujccv193 [facility] [id number] Information: [id number] HPV, high-risk Negative Comments: This high-risk HPV [...] atrophy.V 72.31 ; Routine gynecological examinationSnathanael Chan Dog Breeder (ASCP) :55 CBCD ANC 4.2 3/uL (Normal) [...] SED tSEDRATE 28 mm/h (Normal) Range: 0-30 63-Col-142464:24 Rapid Flu (73309 x 2) Influenza A Ag negative (Normal) [...] ecystokinin (0.02 ug/kg) was administered intravenously over j48-mdobqn period. The post CCK gallbladder ejection fraction qnaceehhmxjc25 minutes following Cholecystokinin administration was noted to [...] et al, Journal of Nuclear Medicine 32:1695, 1991). Sig ryley:Gage Gandhi M.D.June 24, 2012 at 9:54:02 PM [id number] Signed RB/RB If you are the referring physician and would like to consult with theradiologist who provided this inter pretation, please contact Vincent Frost at [phone]. If this radiologist is unavailable, you will bedirected to another radiologist to assist. If you are a patient with a question regarding this report, pleasecontactyour referring physician directly. Professional Interpretation Provided By: [employer], Phone , These documents contain legally protected [...] Gage Gandhi DO :09 HgA1C , Office (80519) HgA1C , Office 6.6 % (Normal) Range: 4.6 - 7.1 :09 Blood Glucose , Office (46304) Blood Glucose , Office 141 (Normal) :29 Blood Glucose , Office (24898) Blood Glucose , Office 113 (Normal) 83-Edp-936444:29 HgA1C , Office (33538) HgA1C , Office 6.8 % (Normal) Range: 4.6 - 7.1 :44 LIPID PANEL (24389) Comments: PATIENT WAS FASTINGPERFORMED BY: LabCoSaint Barnabas Behavioral Health CenterGmlonl6333 [facility] [id number] Information: [id number] LDL/HDL Ratio 2.2 {ratio_units} (Normal) Range: 0.0-3.2 LDL Cholesterol Calc 101 mg/dL (Abnormal) Range: 0-99 VLDL Cholesterol Daniel 40 mg/dL (Normal) Range: 5-40 HDL Cholesterol 46 mg/dL (Normal) Comments: According to ATP-III Guidelines, HDL-C >59 mg/dL is considered anegative risk factor for CHD. Triglycerides 198 mg/dL (Abnormal) Range: 0-149 Cholesterol, Total 187 mg/dL (Normal) Range: 100-199 :47 HgA1C , Office (86932) HgA1C , Office 6.3 % (Normal) Range: 4.6 - 7.1 :47 Blood Glucose , Office (75519) Blood Glucose , Office 183 (Normal) :15 [...] (Normal) Range: 0.358-3.74 :36 HgA1C , Office (61972) HgA1C , Office 5.9 % (Normal) Range: 4.6 - 7.1 :36 Blood Glucose , Office (40818) Blood Glucose , Office 127 (Normal) :00 LISANDRO CULTURE-OTHER (55847) Comments: PATIENT NOT FASTINGPERFORMED BY: [facility] Ltetey8592 [facility] [id number] Result 1 RRF (Normal) Comments: Routine respiratory thai Upper Respiratory Culture Final report (Normal) :14 Blood Glucose , Office (52161) Blood Glucose , Office 119 (Normal) :14 HgA1C , Office (19859) HgA1C , Office 6.1 % (Normal) Range: [...] T PROT 7.7 g/dL (Normal) Range: 6.4-8.2 :00 ANEX PANEL ANTI-COTTER AB 5 AU/mL (Normal) BUSINESS APPLICATIONS ANALYST AB 29 AU/mL (Normal) :00 ANTI JO1 ANTI KERRI 37 AU/mL (Normal) :00 ANTI SCL 70 ANTI-SCL 70 104 AU/mL (Abnormal) :00 ANTI-dsDNA AB 4 {IU/mL} (Normal) :00 CBCD [...] CENTROMERE B 5 AU/mL (Normal) COMP C3 2017 179 (Normal) Range: 90-180 Comments: INFCE Result Units: mg/dL AdultPerformed at: - [facility] [address] [id number] Director: Leatha Mark MD, Phone: [phone] COMP C4 1835 32 (Normal) Range: 9-36 Comments: INFCE Result Units: mg/dL Adult COMP METABOLIC ALK P 74 U/L (Normal) [...] T PROT 7.5 g/dL (Normal) Range: 6.4-8.2 3-Aug-38479:00 COMPLETE UA BACTERIA 0 SEEN {/hpf} (Normal) [...] SSB 11 AU/mL (Normal) :00 VIT D,25 70930 32.4 ng/mL (Normal) Range: 32.0-100.0 Comments: Recent studies consider the lower limit of 32.0 ng/mL to ree threshold for optimal health.Zbigniew CAMACHO. J Nutr. 2004;135(2):317-22. 97-Wxk-757957:51 DEXA BONE DENSITY STUDY () Radiology Report See Note (Normal) Comments: Exam Number: [id number] CLINICAL:The patient is a 49-year-old female who is postmenopausal.Menopause at 42 years old. No hormone replacement therapy. EXAMINATION:DUAL ENERGY X-RAY ABSORPTIOM ETRY / DEXA. TECHNIQUE:Bone Density Measurements (BMD) of lumbar spine and bilateral hipswere obtained using a [employer]roMed scanner.. COMPARISON:July 09, 2004 FINDINGS: Lumbar Spine [...] Foundation [email or web address]://[email or web address].org Reported By: BASHIR CARLSON M.D. 10-Chc-38653:44 Protein Electro, Random Urine Comments: PERFORMED BY: [facility] [id number] M-Sukhwinder, % Not Observed % (Normal) Please note: SPRCS (Normal) Comments: Protein electrophoresis scan will follow via computer, mail, orcourier delivery. Qdrbc-9-Njrihang, U 15.7 % (Normal) Beta Globulin, U 17.7 % (Normal) Gamma Globulin, U 16.9 % (Normal) Albumin, U 47.5 % (Normal) Yovvo-9-Njotsugt, U 2.2 % (Normal) Protein,Total,Urine 23.0 mg/dL (Abnormal) Range: 0.0-15.0 :44 Protein Electro.,S Comments: PERFORMED BY: [facility]6370 [facility] [id number] Please note: SPRCS (Normal) Comments: Protein electrophoresis scan will follow via computer, mail, orcourier delivery. A/G Ratio 1.1 (Normal) Range: 0.7-2.0 Yspyn-2-Rbxwypao 0.9 g/dL (Normal) Range: 0.4-1.2 Beta Globulin 1.2 g/dL (Normal) Range: 0.6-1.3 Gamma Globulin 1.2 g/dL (Normal) Range: 0.5-1.6 Globulin, Total 3.6 g/dL (Normal) Range: 2.0-4.5 M-Sukhwinder Not Observed g/dL (Normal) Albumin 3.9 g/dL (Normal) Range: 3.2-5.6 Jewgq-7-Itygmkcm 0.2 g/dL (Normal) Range: 0.1-0.4 Protein, Total, Serum 7.5 g/dL (Normal) Range: 6.0-8.5 :34 MECCA-D 800005 MECCA-DIRECT SeeNote (Abnormal) Comments: Result: Positive :34 ANTI-CCP 730552 5 {units} (Normal) Range: 0-19 Comments: Negative [...] mm/h (Normal) Range: 0-30 :34 HB CORE [id number] SeeNote (Normal) Comments: Result: NegativePerformed at: [facility] LabCo[address] [id number] Director: Leatha Mark MDPerformed at: [facility]Co[address] [place] [id number] Director: Al White MD :34 HBsAg 6510 [...] of antibody present. :34 HEP C AB 912806 <0.1 (Normal) Range: 0.0-0.9 Comments: Negative: < 0.8Indeterminate 0.8 - 0.9Positive: > 0.9.In order to reduce the incidence of a false positiveresult, the CDC recommends that all s/co ratiosbetween 1.0 and 10.9 be confirmed with additionalRIBA or PCR testing. :34 RHEUMATOID FAC < 10.0 {IU/mL} (Normal) :34 VIT D,25 22792 21.3 ng/mL (Abnormal) Range: 32.0-100.0 Comments: Recent studies consider the lower limit of 32.0 ng/mL to ree threshold for optimal health.Zbigniew CAMACHO. J Nutr. 2004;135(2):317-22. :31 Anti-dsDNA Antibodies Comments: PATIENT WAS FASTINGPERFORMED BY: Womply Onqbtj9032 [facility]mentFormerly [facility] [id number] Information: [id number] Anti-DNA (DS) Ab Qn <1 {IU/mL} (Normal) Range: 0-9 Comments: Negative <5Equivocal 5 - 9Positive >9 : Written Authorization WAR (Normal) Comments: PATIENT WAS FASTINGPERFORMED BY: Womply Qbkbxo5617 [facility] [id number] 31 Comments: Written Authorization Received.Authorization received from DR CHANEL VARMA 02-00-8975Hziwrp by Selma Ba 97-Vgq-808802:24 KNEE,4 OR MORE VIEWS (MT) Radiology Report See Note (Normal) Comments: Exam Number: [id number] LEFT KNEE HISTORYPain. Four views of the [...] BASHIR CARLSON M.D. :31 HEPATIC FUNCTION PANEL (43098) Comments: PATIENT WAS FASTINGPERFORMED BY: Adhysteria [facility] Mmtihv8161 [facility] Aria GlassworksCone Health MedCenter [facility] [id number] Bilirubin, Direct 0.14 mg/dL (Normal) Range: 0.00-0.40 :31 SED RATE ERYTHROCYTE (06562) Comments: PATIENT WAS FASTINGPERFORMED BY: CB [facility] Zjpgxw9333 [facility] HospitalOnitC[facility] [id number] Sedimentation Rate-Westergren 15 mm/h (Normal) Range: 0-30 :31 C-REACTIVE PROTEIN (21298) Comments: PATIENT WAS FASTINGPERFORMED BY: CB [facility] [id number] [facility] Aria GlassworksC[facility] [id number] C-Reactive Protein, Quant 11.2 mg/L (Abnormal) Range: 0.0-4.9 :31 TSH ([id number]) Comments: PATIENT WAS FASTINGPERFORMED BY: CB [facility] [id number] [place]man Aria Glassworksbl[place] [id number] TSH 1.970 {uIU/mL} (Normal) Range: 0.450-4.500 :31 RHEUMATOID FACTOR-QUANT ([id number]) Comments: PATIENT WAS FASTINGPERFORMED BY: CB [facility] Uaknqo2421 [facility] HospitalOnitin [place] [id number] RA Latex Turbid. 6.8 {IU/mL} (Normal) Range: 0.0-13.9 :31 MECCA (ANTINUCLEAR ANTIBODY) Comments: PATIENT WAS FASTINGPERFORMED BY: [facility] [id number] ([id number]) MECCA Direct Positive (Abnormal) : CBC WITH MANUAL DIFF Comments: PATIENT WAS FASTINGPERFORMED BY: [facility] [id number] Information: [id number] ([id number]) Baso (Absolute) 0.1 {x10E3/uL} (Normal) Range: 0.0-0.2 [...] PANEL, COMPREHENSIVE Comments: PATIENT WAS FASTINGPERFORMED BY: CHARLES LabCoSanta [facility] Health CenterAzpjju7771 [facility] OvallesFormerly [facility] [id number] (23394) Alkaline Phosphatase, S 85 [iU]/L (Normal) Range: [...] Glucose, Serum 110 mg/dL (Abnormal) Range: 65-99 68-Obz-700713:25 Blood Glucose , Office (55139) Blood Glucose , Office 90 (Normal) 94-Wnq-747775:25 HgA1C , Office (55646) HgA1C , Office 6.5 % (Normal) Range: 4.6 - 7.1 92-Paw-413314:40 Blood Glucose , Office (73681) Blood Glucose , Office 100 (Normal) 88-Eqo-832334:40 HgA1C , Office (22794) HgA1C , Office 5.7 % (Normal) Range: 4.6 - 7.1 00-Dqu-235831:08 HEPATIC FUNCTION PANEL Comments: repeat Aug; PATIENT NOT FASTINGPERFORMED BY: LabAllmyappsSaint Barnabas Behavioral Health CenterIhegyw1157 [facility] [id number] ([id number]) Alkaline Phosphatase, S 84 [iU]/L (Normal) Range: 25-150 ALT (SGPT) 35 [iU]/L (Normal) Range: 0-40 AST (SGOT) 32 [iU]/L (Normal) Range: 0-40 Albumin, Serum 4.3 g/dL (Normal) Range: 3.5-5.5 Bilirubin, Direct 0.10 mg/dL (Normal) Range: 0.00-0.40 Bilirubin, Total 0.4 mg/dL (Normal) Range: 0.1-1.2 Protein, Total, Serum 7.4 g/dL (Normal) Range: 6.0-8.5 60-Jct-298469:33 Creatinine Clearance Comments: PERFORMED BY: WomplySaint Barnabas Behavioral Health CenterUfamsu2200 [facility] [id number] Creatinine Clearance 119 mL/min (Normal) Range: 88-128 [...] present. Additional information may be found [email or web address]. :33 Hepatic Function Panel (7) Comments: Clinical Information: 04/21@630AM 04/22@630AM PERFORMED BY: [employer]70 [facility] [id number] Albumin, Serum 4.5 g/dL (Normal) Range: 3.5-5.5 Alkaline Phosphatase, S 83 [iU]/L (Normal) Range: 25-150 ALT (SGPT) 54 [iU]/L (Abnormal) Range: 0-40 AST (SGOT) 49 [iU]/L (Abnormal) Range: 0-40 Bilirubin, Direct 0.11 mg/dL (Normal) Range: 0.00-0.40 Bilirubin, Total 0.4 mg/dL (Normal) Range: 0.1-1.2 Protein, Total, Serum 7.6 g/dL (Normal) Range: 6.0-8.5 :33 Microalbumin, 24 hr Urine Comments: PERFORMED BY: [employer]70 [facility] [id number] Microalbumin, Urine 3.5 ug/mL (Normal) Range: 0.0-17.0 Microalbumin,mg/day 5.3 {mg/day} (Normal) 62-Jem-143446:08 Blood Glucose , Office (03684) Blood Glucose , Office 119 (Normal) 09-Hwk-710860:07 HgA1C , Office (76635) HgA1C , Office 6.1 % (Normal) Range: 4.6 - 7.1 :51 HEPATIC FUNCTION PANEL Comments: PATIENT NOT FASTINGClinical Information: 75G DRAWN @ 1145AM PERFORMED BY: [employer]70 [facility] [id number] (65933) Albumin, Serum 4.7 g/dL (Normal) Range: 3.5-5.5 Alkaline Phosphatase, S 89 [iU]/L (Normal) Range: 25-150 ALT (SGPT) 54 [iU]/L (Abnormal) Range: 0-40 AST (SGOT) 43 [iU]/L (Abnormal) Range: 0-40 Bilirubin, Direct 0.11 mg/dL (Normal) Range: 0.00-0.40 Bilirubin, Total 0.4 mg/dL (Normal) Range: 0.1-1.2 Protein, Total, Serum 7.8 g/dL (Normal) Range: 6.0-8.5 43-Rcw-319874:51 Glucose, PP/2 Hour (51871) Comments: PATIENT NOT FASTINGPERFORMED BY: LabCoSaint Barnabas Behavioral Health CenterEzneea9955 [facility] [id number] Glucose, Two-Hour Postprandial 173 mg/dL (Abnormal) Range: 65-139 :25 Lipid Panel (63174) Comments: PATIENT WAS FASTINGPERFORMED BY: LabCoSaint Barnabas Behavioral Health CenterSltxnz0125 [facility] [id number] Cholesterol, Total 177 mg/dL (Normal) Range: 100-199 HDL Cholesterol 37 mg/dL (Abnormal) Comments: According to ATP-III Guidelines, HDL-C >59 mg/dL is considered anegative risk factor for CHD. LDL Cholesterol Calc 84 mg/dL (Normal) Range: 0-99 LDL/HDL Ratio 2.3 {ratio_units} (Normal) Range: 0.0-3.2 Triglycerides 280 mg/dL (Abnormal) Range: 0-149 VLDL Cholesterol Daniel 56 mg/dL (Abnormal) Range: 5-40 :25 CBC with manual diff (86410) Comments: PATIENT WAS FASTINGClinical Information: ADD [id number], [id number] PERFORMED BY: LabCoSaint Barnabas Behavioral Health CenterJfpgwg4710 [facility] [id number] Baso (Absolute) 0.0 {x10E3/uL} (Normal) Range: 0.0-0.2 [...] Panel, Comprehensive Comments: PATIENT WAS FASTINGPERFORMED BY: [facility] [id number] (12188) A/G Ratio 1.4 (Normal) Range: 1.1-2.5 Albumin, [...] Sodium, Serum 143 mmol/L (Normal) Range: 135-145 :25 CALCIFEDIOL (45363) Comments: Draw aroun Apr 06 2009; PATIENT WAS FASTINGPERFORMED BY: [facility] Zcslpq9553 [facility] [id number] Vitamin D, 25-Hydroxy 50.3 ng/mL (Normal) Range: 32.0-100.0 Comments: Recent studies consider the lower limit of 32.0 ng/mL to be athreshold for optimal health.Zbigniew CAMACHO. J Nutr. 2004;135(2):317-22. C DIF TOXIN See Note (Normal) Comments: C. DIFF TOXINS A&B NEGATIVE :10 73-Lzy-273418:10 CUL STOOL/SHIG CULTURE, STOOL See Note (Normal) Comments: No Salmonella, Shigella, Yersinia or Campylobacter isolated.No significant amount of Staphylococcus aureusor yeast-like organisms isolated. SHIGA-TOXIN See Note (Normal) Comments: SHIGA-TOXIN 1 & 2 SHIGA TOXIN 1 AND SHIGA TOXIN 2 NOT DETECTED :10 O AND P See Note (Normal) Comments: OVA AND PARASITES EXAM, ROUTINE These results were obtained using wet preparation(s) and trichrome stained smear. This test does not include testing for Crytosporidium parvum, Cyclospora, or Microspo ridia. TESTING PERFORMED AT [facility]. ORIGINAL REPORT ON FILE IN LAB CONTAINS ADDITIONAL TEST SITE INFORMATION. OVA/ PARASITES EXAM NO OVA, CYSTS, OR PARASITES FOUND. 39-Fdx-263388:10 OCCULT BLD,iFOB See Note (Normal) Comments: OCCULT BLOOD Negative 84-Duz-544128:10 WBC,STOOL See Note (Normal) Comments: FECAL WBCs NONE SEEN 77-Gpp-727872:46 Celiac Disease Panel Comments: PERFORMED BY: [employer] DataArt LaemanPresidioFormerly [facility] [id number] Endomysial Antibody IgA Negative (Normal) Immunoglobulin A, [...] D, 25-Hydroxy 13.4 ng/mL Comments: PERFORMED BY: [facility] Jfnvzs4422 [facility] [id number] 11:46 (Abnormal) Range: 32.0-100.0 Comments: Recent studies consider the lower limit of 32.0 ng/mL to be athreshold for optimal health.Zbigniew CAMACHO. J Nutr. 2004;135(2):317-22. 20-Apr-2008 C difficile Toxins A+B, Negative (Normal) Comments: PATIENT NOT FASTINGPERFORMED BY: [facility]6370 [facility] [id number] 15:30 EIA 20-Apr-2008 Occult Blood, Stool, Negative (Normal) Comments: PATIENT NOT FASTINGPERFORMED BY: [facility]6370 [facility] [id number] 15:30 Guaiac :30 Ova + Parasite Exam Comments: PATIENT NOT FASTINGPERFORMED BY: [facility] GasBe[facility] Hospital6370 [facility] [id number] Ova + Parasite Exam Final report (Normal) Comments: These results were obtained using wet preparation(s) and trichromestained smear. This test does not include testing for Cryptosporidiumparvum, Cyclospora, or Microsporidia. Result 1 NOCP (Normal) Comments: No ova, cysts, or parasites seen. :30 Stool Culture Comments: PATIENT NOT FASTINGClinical Information: SRC: STOOL PERFORMED BY: [facility] [address] [id number] Campylobacter Culture Final report (Normal) E coli Shiga Toxin EIA Negative (Normal) Result 1 NCI (Normal) Comments: No Campylobacter species isolated. Result 1 NSS (Normal) Comments: No Salmonella or Shigella recovered. Salmonella/Shigella Screen Final report (Normal) :30 White Blood Cells (WBC), Comments: PATIENT NOT FASTINGPERFORMED BY: [facility]6370 [facility] [id number] Stool Result 1 NWBC (Normal) Comments: No white blood cells seen. White Blood Cells (WBC), Final report (Normal) Comments: Reference Range: None Seen Stool 13-Ldy-308267:01 CBC with manual diff (20928) Comments: PATIENT NOT FASTINGClinical Information: ADD DRAW FEE [id number] ADD J0 3378 PERFORMED BY: [facility] [address] [place] [address] [id number] Baso (Absolute) 0.0 {x10E3/uL} (Normal) Range: 0.0-0.2 [...] 11.7-15.0 WBC 8.3 {x10E3/uL} (Normal) Range: 4.0-10.5 54-Gyu-922105:01 Metabolic Panel, Comprehensive Comments: PATIENT NOT FASTINGPERFORMED BY: LabCoSaint Barnabas Behavioral Health CenterIsxxgx3870 [facility] [id number] ([id number]) A/G Ratio 1.3 (Normal) Range: 1.1-2.5 Albumin, [...] Serum 104 mg/dL (Abnormal) Range: 65-99 If -Welsh >60 mL/min/1.73 Range: 60-128 (Normal) Comments: Note: [...] Sodium, Serum 142 mmol/L (Normal) Range: 135-145 6-Kbb-018361:30 ACUTE ABDOMEN, INC CHEST Radiology Report See Note (Normal) Comments: Exam Number: [id number] THREE VIEWS ABDOMEN CLINICAL STATEMENTGeneralized abdominal pain, [...] or abdomen. Reported By: TONO FONTANEZ M.D. 4-Mpy-928949:08 CBCD,SMEAR DIFF BAND 3 % (Normal) Range: [...] Plan of Care Name Dates Details Instructions Encounter for gynecological examination without abnormal finding [...] essential, benign Hypertension, essential, benign : Reviewed Lead Ramp Agent Letter Indication: Hypertension, essential, benign Hypertension, essential, [...] Indication: Psoriatic arthropathy Psoriatic arthropathy : Reviewed Lead Ramp Agent Letter Indication: Psoriatic arthropathy Encounter for gynecological examination without abnormal finding : *Well Female Maintenance ([facility]) Indication: Encounter for gynecological examination without [...] uncontrolled, without complications Psoriatic arthropathy : Reviewed Lead Ramp Agent Letter Indication: Psoriatic arthropathy Hypercholesteremia : Cholesterol [...] (gastroesophageal reflux disease) Psoriatic arthropathy : Reviewed Lead Ramp Agent Letter Indication: Psoriatic arthropathy Hypertension, essential, benign [...] uncontrolled, without complications Psoriatic arthropathy : Reviewed Lead Ramp Agent Letter Indication: Psoriatic arthropathy GERD (gastroesophageal reflux [...] with no complications Psoriatic arthropathy : Reviewed Lead Ramp Agent Letter Indication: Psoriatic arthropathy Diabetes mellitus type [...] with no complications Psoriatic arthropathy : Reviewed Lead Ramp Agent Letter Indication: Psoriatic arthropathy Diabetes mellitus type [...] liver GERD (gastroesophageal reflux disease) : Reviewed Lead Ramp Agent Letter Indication: GERD (gastroesophageal reflux disease) Hypertension, [...] Indication: Fatty liver Psoriatic arthropathy : Reviewed Lead Ramp Agent Letter Indication: Psoriatic arthropathy Psoriatic arthropathy : [...] pain, acute, right upper quadrant : Reviewed Lead Ramp Agent Letter Indication: Abdominal pain, acute, right upper [...] Other abnormal glucose Fatty liver : Reviewed Lead Ramp Agent Letter Indication: Fatty liver Fatty liver : [...] Current Prescription(s) Indication: Psoriasis Psoriasis : Reviewed Lead Ramp Agent Letter Indication: Psoriasis GERD (gastroesophageal reflux disease) : GERD Education Indication: GERD (gastroesophageal reflux disease) Other abnormal glucose : FOLLOW UP IN 4 MONTHS Indication: Other abnormal glucose Psoriasis : Reviewed Lead Ramp Agent Letter Indication: Psoriasis Psoriasis : FOLLOW UP IN 1 MONTH Indication: Psoriasis Vitamin D deficiency, unspecified : Reviewed Lab Indication: Vitamin D deficiency, unspecified Psoriatic arthropathy : Reviewed Lead Ramp Agent Letter Indication: Psoriatic arthropathy Psoriatic arthropathy : [...] : Diarrhea Education Indication: Diarrhea Planned Observations HPV automatic (08114)Indication: Screening for HPV (human papillomavirus) (Renamed from Encounter for screening for human papillomavirus (HPV)) On: 02-Zhq-35568:48 Request Thin prep Pap (72190) (no STD testing)Indication: Encounter for gynecological examination without abnormal finding On: 32-Sgk-99116:06 Request HGB A1C (74936)Indication: Diabetes mellitus type 2, uncontrolled, without complications On: :38 Request CALCIFEDIOL (27150)Indication: Vitamin D deficiency, unspecified On: :36 Request TSH (22568)Indication: Diabetes mellitus type 2, uncontrolled, without complications On: Request URINALYSIS, W/ MICRO (44175)Indication: Diabetes mellitus type 2, uncontrolled, without complications On: 36 Request MICROALBUMIN: CREATININE RATIO (66322) AND (93248)Indication: Diabetes mellitus type 2, uncontrolled, without complications On: :36 Request METABOLIC PANEL, COMPREHENSIVE (50224)Indication: Diabetes mellitus type 2, uncontrolled, without complications On: Request LIPOPROTEIN, BLD, BY NMR (80774)Indication: Diabetes mellitus type 2, uncontrolled, without complications On: Request CBC W/AUTO DIFF WBC (86130)Indication: Diabetes mellitus type 2, uncontrolled, without complications On: 36 Request HGB A1C (81560)Indication: Diabetes mellitus type 2, uncontrolled, without complications On: :21 Request LIPID PANEL (35494)Indication: Hypercholesteremia On: :16 Request Urine Protein Electrophoresis (UPEP) (44876)Indication: Elevated serum globulin level On: :23 Request METABOLIC PANEL, COMPREHENSIVE (72800)Indication: Hypertension, essential, benign On: :35 Request LIPID PANEL (96768)Indication: Hypertension, essential, benign On: :34 Request CBC W/AUTO DIFF WBC (28259)Indication: Hypertension, essential, benign On: :34 Request URINALYSIS, W/ MICRO (57312)Indication: Diabetes mellitus type 2, uncontrolled, without complications On: 34 Request MICROALBUMIN: CREATININE RATIO (51035) AND (42742)Indication: Diabetes mellitus type 2, uncontrolled, without complications On: :34 Request TSH (43933)Indication: Diabetes mellitus type 2, uncontrolled, without complications On: :34 Request CALCIFIDIOL (63500) VIT D 25Indication: Vitamin D deficiency, unspecified On: 04-Oht-760548:34 Request CALCIFIDIOL (12372) VIT D 25Indication: Vitamin D deficiency, unspecified On: :30 Request TSH (96360)Indication: Diabetes mellitus type 2, uncontrolled, without complications On: : Request URINALYSIS, W/ MICRO (20819)Indication: Hypertension, essential, benign On: Request MICROALBUMIN: CREATININE RATIO (75856) AND (91076)Indication: Hypertension, essential, benign On: : Request METABOLIC PANEL, COMPREHENSIVE (07360)Indication: Hypertension, essential, benign On: Request LIPID PANEL (11107)Indication: Hypercholesteremia On: Request CBC W/AUTO DIFF WBC (40245)Indication: Hypertension, essential, benign On: Request HPV automatic (96195)Indication: Screening for HPV (human papillomavirus) (Renamed from Encounter for screening for human papillomavirus (HPV)) On: :19 Request Thin prep Pap (73660) (no STD testing)Indication: Encounter for gynecological examination without abnormal finding On: :00 Request CALCIFIDIOL (46062) VIT D 25Indication: Vitamin D deficiency, unspecified On: : Request TSH (08182)Indication: Diabetes mellitus type 2, uncontrolled, without complications On: : Request URINALYSIS, W/ MICRO (41241)Indication: Diabetes mellitus type 2, uncontrolled, without complications On: : Request MICROALBUMIN: CREATININE RATIO (88121) AND (50986)Indication: Diabetes mellitus type 2, uncontrolled, without complications On: : Request METABOLIC PANEL, COMPREHENSIVE (00700)Indication: Diabetes mellitus type 2, uncontrolled, without complications On: : Request LIPID PANEL (04847)Indication: Hypercholesteremia On: : Request CBC W/AUTO DIFF WBC (19472)Indication: Diabetes mellitus type 2, uncontrolled, without complications On: 4-Kci-093036:00 Request Thin prep Pap (51260) (no STD testing)Indication: Well woman exam On: :21 Request YWMVX-TDCKJXPOJHH-XDPRO (27831)Indication: Fatty liver On: :39 Request PT (Prothrobim Time) (82988)Indication: Fatty liver On: :39 Request CALCIFIDIOL (30554) VIT D 25Indication: Vitamin D deficiency, unspecified On: :38 Request LIPID PANEL (96926)Indication: Hypercholesteremia On: :38 Request TSH (96798)Indication: Diabetes mellitus type II, controlled, with no complications On: :38 Request URINALYSIS, W/ MICRO (22623)Indication: Hypertension, essential, benign On: :38 Request MICROALBUMIN: CREATININE RATIO (28723) AND (38756)Indication: Hypertension, essential, benign On: :38 Request METABOLIC PANEL, COMPREHENSIVE (11448)Indication: Hypertension, essential, benign On: :38 Request CBC W/AUTO DIFF WBC (46389)Indication: Hypertension, essential, benign On: :38 Request CALCIFEDIOL (72939)Indication: Vitamin D deficiency, unspecified On: :52 Request TSH (14279)Indication: Diabetes mellitus type II, controlled, with no complications On: :52 Request URINALYSIS, W/ MICRO (09792)Indication: Hypertension, essential, benign On: :52 Request MICROALBUMIN: CREATININE RATIO (11738) AND (52608)Indication: Hypertension, essential, benign On: :52 Request METABOLIC PANEL, COMPREHENSIVE (11741)Indication: Hypertension, essential, benign On: :52 Request CBC W/AUTO DIFF WBC (57025)Indication: Hypertension, essential, benign On: :52 Request LIPID PANEL (06093)Indication: Hypercholesteremia On: :52 Request FECAL OCCULT HGB ASSAY- tubes sent home (34145)Indication: Well woman exam On: :30 Request Thin prep Pap (32203)Indication: Well woman exam On: :30 Request Sed Rate Erythrocyte (35801)Indication: Diarrhea On: 57-Jef-984578:22 Request Metabolic Panel, Comprehensive (43411)Indication: Diarrhea On: :22 Request CBC with manual diff (26936)Indication: Diarrhea On: :22 Request Rapid Strep Test, Office (46105)Indication: Pharyngitis, acute On: :47 Request Urine Protein Electrophoresis (UPEP) (08874)Indication: Abnormal blood chemistry On: :55 Request Serum Protein Electrophoresis (SPEP) (56406)Indication: Abnormal blood chemistry On: :55 Request CALCIFIDIOL (41059) VIT D 25Indication: Vitamin D deficiency, unspecified On: :53 Request Comments: dp om 3-4 months HEPATIC FUNCTION PANEL (90846)Indication: Elevated LFTs On: 54-Azs-238083:36 Request CREATININE CLEARANCE (67712) 24 HOURIndication: Other abnormal glucose On: 98-Bjf-144542:32 Request MICROALBUMIN: CREATININE RATIO (22792) AND (56531)Indication: Other abnormal glucose On: 18-Dty-759543:26 Request CALCIFEDIOL (48887)Indication: Diarrhea On: 00-Ikf-723288:16 Request Celiac Disease Antibody Profile (61652) x3 & (46732) X2- gliadin IgA, IgG and reticulin IgA, IgG and tissue transglutaminase IgA.Indication: Diarrhea On: 43-Phh-769849:08 Request LISANDRO CULTURE-STOOL (03768)Indication: Diarrhea On: 82-Mvw-625856:06 Request C-DIFFICILE, STOOL (11137)Indication: Diarrhea On: 00-Plz-990697:06 Request LEUKOCYTE COUNT, FECAL (30795)Indication: Diarrhea On: 32-Suc-588927:06 Request OCCULT BLOOD FECES SCREEN (25563)Indication: Diarrhea On: 22-Ewh-599658: Request OVA & PARASITE DIR SMEAR (97530)Indication: Diarrhea On: 42-Mdr-279307:06 Request OVA & PARASITE DIR SMEAR (35489)Indication: Diarrhea On: 11-Fif-004817:42 Request OCCULT BLOOD FECES SCREEN (47800)Indication: Diarrhea On: 57-Qzc-577155:42 Request LEUKOCYTE COUNT, FECAL (84953)Indication: Diarrhea On: 29-Okg-244447:42 Request C.Difficile, Stool (31759)Indication: Diarrhea On: 68-Lxd-089222:42 Request LISANDRO CULTURE-STOOL (28411)Indication: Diarrhea On: 54-Bpi-393054:42 Request CBC WITH MANUAL DIFF (30021)Indication: Gastroenteritis On: 3-Rlo-551204:45 Request Planned Encounters Medical; 3 Month FU - On: 30-Jul-2018 9:00 [facility] Chanel Varma DO, DO, Kathleen Planned Procedures DEXA SCAN AXIAL SKELETON (80794)By: On: 30-Jun-2018 Intent Chanel Varma DO, DO, Kathleen SCREENING DIGITAL TOMOSYNTHESIS OF On: 30-Jun-2018 Intent BREAST (35723)By: Chanel Varma DO, DO, Kathleen Flu Vaccine (Quadrivalent) 89837Xk: On: 13-May-2018 Intent Chanel Varma DO, DO, Comments: Lot #[id number]/Site-L dltd, IMDose prefilled syringegiven by: Hector ARIAS.VIS reviewed and ABN signed Chanel ELECTROCARDIOGRAM, COMPLETE (ECG) On: 29-Apr-2018 Intent (43267)By: Chanel Varma DO Comments: NSR NO ACUTE CHG Chanel Varma DO ELECTROCARDIOGRAM, COMPLETE (ECG) On: 13-Oct-2017 Intent (72290)By: Chanel Varma DO Comments: nsr no acute chg - Chanel Varma DO SCREENING DIGITAL TOMOSYNTHESIS OF On: 25-Jun-2017 Intent BREAST (42290)By: Chanel Varma DO, DO, Kathleen Aerosol Treatment (74847)By: Francisco Javier On: 04-Jun-2017 Intent Jessa ARIAS Radiology - ChestBy: Maxime LACE TEARING SUPERVISOR, On: 06-Nov-2016 Intent Angy Aerosol Treatment (66468)By: Maxime On: 06-Nov-2016 Intent LUPESpring E Aerosol Treatment (07728)By: Maxime On: 01-Nov-2016 Intent LUPE Angy Phenergan Injection, up to 50 mg On: 11-Oct-2016 Intent (J2550)By: Spring Swartz CNP Comments: lot:[id number]: 03/27site/route: LGM/IMamt: 1mLVIS signed when applicableChelsea, SUBSTATION OPERATOR AUTOMATIC ELECTROCARDIOGRAM, COMPLETE (ECG) On: 23-Sep-2016 Intent (62298)By: Chanel Varma DO Comments: nsr no acute chg - Chanel Varma DO Bone Density StudyBy: Felicia HERNANDEZ, On: 20-May-2016 Intent Chanel Crow DO BILATERAL MAMMOGRAMS (16052)By: On: 20-May-2016 Intent hCanel Varma DO, DO, Kathleen Toradol Injection, 30 mg On: 15-Mar-2016 Intent (J1885)By: Maixme ANDRADE Angy Comments: 1 ml given im rt hi lot [id number] exp 05/20/17 MRI CERVICAL SPINE W/O CONTRAST On: 14-Aug-2015 Intent (12700)By: Chanel Varma DO, DO, Kathleen Radiology - Cervical SpineBy: Maxime On: 25-Jul-2015 Intent LUPE Angy Toradol Injection, 30 mg On: 24-May-2015 Intent (J1885)By: Spring Swartz CNP Radiology - Shoulder - LeftBy: On: 24-May-2015 Intent Spring Swartz CNP Radiology - Forearm - LeftBy: Maxime On: 24-May-2015 Intent LUPE Angy EMGBy: Spring Swartz CNP On: 24-May-2015 Intent Nerve ConductionBy: Spring Swartz CNP On: 24-May-2015 Intent E Flu Vaccine (Quadrivalent) 63161At: On: 18-May-2015 Intent Chanel Varma DO, DO, Comments: Lot #[id number]-L dltd, IMDose prefilled syringegiven by:ROLANDO Trejo and ABN signed Chanel Ultrasound - GallbladderBy: Felicia On: 27-Mar-2015 Intent Chanel HERNANDEZ DO, Kathleen Comments: attention CBD size-- EKG (29187)By: Chanel Varma DO On: 22-Mar-2015 Intent Chanel Varma DO Comments: NSR NO ACUTE CHG MAMMOGRAM, SCREENING, BOTH BREAST On: 22-Mar-2015 Intent (11987)By: Chanel Varma DO, DO, Kathleen Anoscopy (32350)By: Felicia HERNANDEZ, On: 10-Oct-2014 Intent Chanel rCow DO Comments: se exam for findings IMMUNIZ ADMNIN, 1 VAC, SNGL/COMBO On: 19-May-2014 Intent (15077)By: Chanel Varma DO, DO, Kathleen FLU VAC, SPLIT, >3 YEARS, INTRAMUSC On: 19-May-2014 Intent (10688)By: Chanel Varma DO Comments: lot: [id number]: 02/07/15site/route: Rdel/IMamt:0.5mLVIS signed when applicableChelsea, SUBSTATION OPERATOR AUTOMATIC Chanel Varma DO EKG (48683)By: Chanel Varma DO On: 19-May-2014 Intent Chanel Varma DO Comments: nsr no chg when compared to old Ultrasound - LiverBy: Felicia HERNANDEZ, On: 28-Jan-2014 Intent Chanel Crow DO Eprescribed prescriptions On: 31-Dec-2013 Intent (G8553)By: Chanel Varma DO, DO, Kathleen OtherBy: Chanel Varma DO On: 31-Dec-2013 Intent Chanel HERNANDEZ Comments: esophagram with 13 mm tablet EKG (77930)By: Chanel Varma DO On: 14-Jun-2013 Intent Chanel Varma DO Comments: nsr no acute chg Eprescribed prescriptions On: 14-Jun-2013 Intent (G8553)By: Marissa Gomez LPN DXA, BONE DENSITY, AXIAL SKELETON On: 10-May-2013 Intent (45393)By: Marissa Gomez LPN Comments: dx post menopausal MAMMOGRAM, SCREENING, BOTH BREASTS On: 10-May-2013 Intent (94959)By: Marissa Gomez LPN Comments: dx breast screening INFUSION, NORMAL SALINE SOLUTION , On: 25-Sep-2012 Intent 1000 CC (Special Coverage Instructions Apply. See MCM: 2049) (J7030)By: Aby Douglas MD HYDRATION IV INFUSION, INIT On: 25-Sep-2012 Intent (40454)By: Aby Douglas MD hida scan with cckBy: Felicia HERNANDEZ, On: 22-Jun-2012 Intent Chanel Crow DO Eprescribed prescriptions On: 18-May-2012 Intent (G8553)By: Marissa Gomez LPN PNEUM VAC ADLT/IMUMNOSPR, SBC/INTRM On: 24-Jul-2011 Intent (75929)By: Chanel Varma DO Comments: Lot #[id number]/Site-left deltoidDose- 0.5mlgiven by: JUANA Ramos DO, Kathleen EKG ([id number])By: Chanel Varma DO On: 24-Jul-2011 Intent Chanel Varma DO Comments: nsr no acute chg- IMMUNIZ ADMNIN, 1 VAC, SNGL/COMBO On: 24-Jul-2011 Intent ([id number])By: Chanel Varma DO, DO, Kathleen EKG ([id number])By: Chanel Varma DO On: 21-Sep-2010 Intent Chanel Varma DO Comments: nsr no acute chg TDAP VACCINE >7 IM ([id number])By: On: 28-May-2010 Intent Chanel Varma DO, DO, Comments: Lot [id number] [id number]- R Dltd/IMDose 0.5mlgiven by: JUANA JAQUEZ IMMUNIZ ADMNIN, 1 VAC, SNGL/COMBO On: 28-May-2010 Intent ([id number])By: Chanel Varma DO Comments: Lot #[id number] 4/11Site- L Dltd/IMDose 0.5mlgiven by: JUANA JAQUEZ DO, Kathleen FLU VAC, SPLIT, >3 YEARS, INTRAMUSC On: 28-May-2010 Intent ([id number])By: Chanel Varma DO, DO, Kathleen Inhaler Demonstration ([id number])By: On: 14-May-2010 Intent Spring Swartz CNP Pulse Oximetry ([id number])By: Maxime On: 14-May-2010 Intent Spring ANDRADE Aerosol Treatment ([id number])By: Maxime On: 14-May-2010 Intent Spring ANDRADE DXA, BONE DENSITY, AXIAL SKELETON On: 18-Jan-2010 Intent ([id number])By: Chanel Varma DO, DO, Kathleen PHYSICAL THERAPY EVALUATION On: 27-Nov-2009 Intent ([id number])By: Spring Swartz CNP Radiology - Knee - Left - Weight On: 27-Nov-2009 Intent BearingBy: Spring Swartz CNP Flu Vaccine, Split IM ([id number])By: On: 23-May-2009 Intent Chelsea Siddiqi LPN Comments: Lot #[id number]-Site-right deltoidgiven by:[facility] INFUSION, NORMAL SALINE SOLUTION , On: 28-Dec-2008 Intent 1000 CC (Special Coverage Comments: IV Therapy initiated (Romulo Gomez LPN)22G, 1 inchSite: left a/cTolerated: wellno redness or swelling, no s/s infiltrationB. JUANA Hodges Instructions Apply. See MCM: 2048) ([id number])By: Spring Swartz CNP HYDRATION IV INFUSION, INIT On: 28-Dec-2008 Intent ([id number])By: Spring Swartz CNP Radiology - Abdomen SeriesBy: On: 14-Jan-2008 Intent Chanel Varma DO, DO, Kathleen INFUSION, NORMAL SALINE SOLUTION , On: 14-Jan-2008 Intent 1000 CC (Special Coverage Comments: Lot #:[id number] date:04-19 Amount given:1 liter Route: IVSite given:right anticub Given by: judit Instructions Apply. See MCM: 2048) ([id number])By: Chanel Varma DO, DO, Kathleen IV Needle placement ([id number])By: On: 14-Jan-2008 Intent Chanel Varma DO, DO, Comments: # 22 placed to right anticubital space without difficulty per judit Buchanan IV Infusion ([id number])By: Felicia HERNANDEZ, On: 14-Jan-2008 Intent Chanel Crow [...] finding Hypercholesteremia : DISCONTINUED - LIPID PANEL ([id number]) Indication: Hypercholesteremia Hypercholesteremia : DISCONTINUED - TSH (33450) Indication: Hypercholesteremia Diabetes mellitus type II, controlled, with no complications : DISCONTINUED - URINALYSIS, AUTOMATED W/ MICRO (06263) Indication: Diabetes mellitus type II, controlled, with no complications Diabetes mellitus type II, controlled, with no complications : DISCONTINUED - MICROALBUMIN: CREATININE RATIO (69690) AND (54005) Indication: Diabetes mellitus type II, controlled, with no complications Diabetes mellitus type II, controlled, with no complications : DISCONTINUED - METABOLIC PANEL, COMPREHENSIVE (25093) Indication: Diabetes mellitus type II, controlled, with no complications Diabetes mellitus type II, controlled, with no complications : DISCONTINUED - CBC WITH MANUAL DIFF (15766) Indication: Diabetes mellitus type II, controlled, with no complications Vitamin D deficiency, unspecified : DISCONTINUED - Vitamin D Hydroxy (39336) Indication: Vitamin D deficiency, unspecified Hypertension, essential, benign : DISCONTINUED - TSH (75221) Indication: Hypertension, essential, benign Hypertension, essential, benign : DISCONTINUED - URINALYSIS, AUTOMATED W/ MICRO (39922) Indication: Hypertension, essential, benign Hypertension, essential, benign : DISCONTINUED - MICROALBUMIN: CREATININE RATIO (05981) AND (78096) Indication: Hypertension, essential, benign Hypertension, essential, benign : DISCONTINUED - METABOLIC PANEL, COMPREHENSIVE (64757) Indication: Hypertension, essential, benign Hypertension, essential, benign : DISCONTINUED - CBC WITH MANUAL DIFF (68957) Indication: Hypertension, essential, benign Hypertension, essential, benign : DISCONTINUED - TSH (07763) Indication: Hypertension, essential, benign Hypertension, essential, benign : DISCONTINUED - URINALYSIS, AUTOMATED W/ MICRO ([id number]) Indication: Hypertension, essential, benign Hypertension, essential, benign : DISCONTINUED - MICROALBUMIN: CREATININE RATIO (59761) AND (25502) Indication: Hypertension, essential, benign Hypertension, essential, benign : DISCONTINUED - METABOLIC PANEL, COMPREHENSIVE (84177) Indication: Hypertension, essential, benign Hypertension, essential, benign : DISCONTINUED - LIPID PANEL (30305) Indication: Hypertension, essential, benign Hypertension, essential, benign : DISCONTINUED - CBC WITH MANUAL DIFF (44367) Indication: Hypertension, essential, benign Cough : How [...] Indication: Sinusitis, acute Encounters Office Visit On: 30-Jun-2018 8:32 Encounter Reason: [...] up ER - Reason for hospitalization note: ([facility] er sat night for the worst h/a [...] poorly. Pap smear: date of last pap: (9.30.13). Contraceptive history: The patient is not using [...] (UA, CMP, CRP, RA, CBC, ESR). Date: (5/26/10). Current symptoms/reason for visit include/s Follow up [...] Internal Medicine End: 14-Jan-2008 9:00 [facility]Le[facility]; merissa guarantor
--- OUTSIDE RECORDS SUMMARY | 2018-11-03 10:58 | XMS RPT_ITS | Continuity of Care Document ---
:1960 Author Organization [facility] Address [facility] 2 [place] [address] Phone Care Team Providers Name Role Phone Chanel Varma DO Unavailable Alexis RDZ, Joey Gallegos Unavailable Physical Therapy, [facility] Unavailable Edin Cotter MD Unavailable Dr. Herve [...] days Quantity: 50 {Betzaida} Refills: 0 Ordered:28-Dec-2008 Vreonika Calles Start : 28-Dec-2008 End : 09-Jan-2009 [...] (50 MG/ML) End : 06-Nov-2016 Discontinued ERGOCALCIFEROL, 73575UFEC (Oral Capsule) 1 (one) Capsule twice weekly [...] Calles End : 28-Dec-2008 Discontinued VITAMIN D, 01176RZPM (Oral Capsule) 1 Weekly for 0 days Refills: 0 Ordered:28-Jan-2014 Marissa Gomez LPN Start : 28-Jan-2014 End : 23-Dec-2014 Discontinued Comments:This order discontinued per -Span. Vitamin D3 47077 UNIT Oral Capsule 1 (one) Capsule Capsule [...] VAC ADLT/IMUMNOSPR, SBC/INTRM Date: 02-Aug-2016 Completed 02-Aug-2016 (15701) Comments: lot: [id number]: 01/25/2018site/route: L del/IMamt: 0.5mLVIS signed when applicableChelsea, [employer] cervical spin herniated disc Completed Comments: 11/13/15 - Dr Edin Cotter - [facility] Cholecystectomy Completed Comments: 07/22 Date Value Details 22-Apr-2018 Emergency Department Summary Result: Comments: See Note; NOTES: [facility] Medical Records Department [address] [facility] [place] [address] Emergency Department Summary 04/22/18 0136 MR#: [id number] Acct: [id number] Name: LEATHA ABAD Rep #: [id number] : 1960 57 From: Edin Haddad MD [...] Impression: Gastroenteritis This note was generated with Sonar.me dictation software. It may contai n incorrect [...] your Primary Care Provider. Call Doctors [facility] ([phone]) or report to the closest Emergency Room. Call 911 if necessary. [phone] <Electronically signed by Edin Haddad MD> Date Edin Haddad MD Cosigner Signature (If Indicated): Date _ CC: Chanel Varma DO 22-Apr-2018 Abdomen/Pelvis W IV Cont ONLY Result: Comments: See Note; NOTES: [facility] Imaging Services [address] [place] [address] Abdomen/Pelvis W IV Cont ONLY MR#: [id number] Acct: [id number] Name: LEATHA ABAD #: [id number] : 1960 F 57 From: David Giang MD PCP: Chanel Varma DO Status: REG ER Study: Abdomen/Pelvis W IV Cont ONLY Date of Exam: 04/22/18 Exam# [id number] Ordering Dr: Edin Madrigal MD STUDY: CT [...] CC: Chanel Varma DO; Edin Haddad MD Emergency Response Technician: Signed 21-Feb-2018 Discharge Instruction Result: Comments: See Note; NOTES: [facility] Medical Records Department [address] [place] [address] Discharge Instruction 02/21/18 1944 MR#: [id number] Acct: [id number] Name: LEATHA GALARZA Rep #: [id number] : 1960 57 From: Catalino Murguia MD [...] your Primary Care Provider. Call Doctors Registry ([phone]) or report to the closest Emergency Room. Call 911 if necessary. 02/21/18 0053 <Electronically signed by Catalino Murguia MD> Date Catalino Murguia MD Cosigner Signature (If Indicated): Date CC: Chanel Varma DO 21-Feb-2018 Emergency Department Summary Result: Comments: See Note; NOTES: [facility] Medical Records Department [address] [place] [address] Emergency Department Summary 02/21/18 1822 MR#: [id number] Acct: [id number] Name: LEATHA ABAD Rep #: [id number] : 1960 57 From: Catalino Murguia MD [...] ly intact. Bilateral 5 out of 5 want ad supervisor strength. Bilateral dorsi plantar flexion. Fingertip to [...] Acute hypertension This note was generated with Sonar.me dictation software. It may contain incorrect words, [...] your Primary Care Provider. Call Doctors Registry ([phone]) or report to the closest Emergency Room. Call 911 if necessary. 02/21/18 3605 <Electronically signed by Catalino Murguia MD> Date Catalino Murguia MD Cosigner Signature (If Indicated): Date CC: Chanel Varma DO 21-Feb-2018 Brain/Head without Contrast Result: Comments: See Note; NOTES: [facility] Imaging Services [address] [place] [address] Brain/Head without Contrast MR#: [id number] Acct: [id number] Name: RUTHIE ABADCHANTALE Joy Rep #: [id number] : 1960 F 57 From: Levi Castellon MD PCP: Chanel Varma DO Status: REG ER Study: Brain/Head without Contrast Date of Exam: 02/21/18 Exam# [id number] Ordering Dr: Catalino Murguia MD STUDY: CT [...] CC: Catalino Murguia MD; Chanel Varma DO Emergency Response Technician: Signed 15-Sep-2017 Knee 4 or More Views Result: Comments: See Note; NOTES: [facility] Imaging Services [address] [place] [address] Knee 4 or More Views MR#: [id number] Acct: [id number] Name: LEATHA ABAD Rep #: [id number] : 1960 F 56 From: Jason Ramirez PCP: Chanel Varma DO Status: REG CLI Study: Knee 4 or More Views Date of Exam: 09/15/17 Exam# [id number] Ordering Dr: Jo Hutchison MD STUDY: X-RAY [...] CC: Chanel Varma DO; Jo Hutchison MD Emergency Response Technician: Signed 15-Sep-2017 Knee 4 or More Views Result: Comments: See Note; NOTES: [facility] Imaging Services [address] [place] [address] Knee 4 or More Views MR#: [id number] Acct: [id number] Name: LEATHA ABAD Rep #: [id number] : 1960 F 56 From: Jason Ramirez PCP: Chanel Varma DO Status: REG CLI Study: Knee 4 or More Views Date of Exam: 09/15/17 Exam# [id number] Ordering Dr: Jo Hutchison MD STUDY: X-RAY [...] DO at 23:23 EST , Service support [phone], CC: Chanel Varma DO; Jo Hutchison MD Emergency Response Technician: Signed 28-Jul-2017 SCREENING MAMM (CAD), BILAT Result: Comments: See Note; NOTES: [facility] Imaging Services [address] [place] [address] SCREENING MAMM (CAD), BILAT MR#: [id number] Acct: [id number] Name: LEATHA ABAD Rep #: [id number] : 1960 F 56 From: Jordy Masters MD PCP: Chanel Varma DO Status: REG CLI Study: SCREENING MAMM (CAD), BILAT Date of Exam: 07/28/17 Exam# [id number] Ordering Dr: Janel Varma DO MAMMOGRAPHY - [...] 2016 and April 26, 2015. FINDINGS: Breast Phenix sition: There are scattered areas of fibroglandular [...] delay biopsy of a clinically suspicious abnormality. [id number] Electronically Signed: Jordy Masters MD 27/07/19 at 8:04 EST Tel [phone], Service support , CC: Chanel Varma DO Emergency Response Technician: Signed 06-Nov-2016 Chest PA and Lateral Result: Comments: See Note; NOTES: [facility] Imaging Services [address] [place] [address] Verdana 4d Chest PA and Lateral MR#: [id number] Acct: [id number] Name: LEATHA ABAD Rep #: [id number] : 1960 F 55 From: Jordy Masters MD PCP: Chanel Varma DO Status: REG CLI Study: Chest PA and Lateral Date of Exam: 11/06/16 Exam# [id number] Ordering Dr: Spring Swartz STUDY: X-RAY CHEST [...] Jordy Masters MD at 15:52 EDT Tel [phone], Service support [phone], Fax CC: Spring Swartz; Chanel Varma DO Emergency Response Technician: Signed 23-Jul-2016 Bilat Scrn Digital AND CAD Result: Comments: See Note; NOTES: [facility] Imaging Services [address] [place] [address] Verdana 4d Bilat Scrn Digital AND CAD MR#: [id number] Acct: [id number] Name: ARELIS ABAD Rep #: [id number] : 1960 F 55 From: Jordy Masters MD PCP: Chanel Varma DO Status: REG CLI Study: Bilat Scrn Digital AND CAD Date of Exam: 07/23/16 Exam# [id number] Ordering Dr: Chanel Palacios DO MAMMOGRAPHY - [...] delay biopsy of a clinically suspicious abnormality. [id number] Electronically Signed: Jordy Masters MD at 10:50 ES T Tel [phone], Service support [phone], CC: Chanel Varma DO Emergency Response Technician: Signed 23-Jul-2016 Dexa Bone Density Study (HP) Result: Comments: See Note; NOTES: [facility] Imaging Services [address] [place] [address] Verdana 4d Dexa Bone Density Study (HP) MR#: [id number] Acct: [id number] Name: BRYANT ABAD Rep #: [id number] : 1960 F 55 From: Jordy Masters MD PCP: Chanel Varma DO Status: [facility] Study: Dexa Bone Density Study (HP) Date of Exam: 07/23/16 Exam# [id number] Ordering Dr : Chanel Varma DO STUDY: [...] Jordy Masters MD at 9:07 EST Tel [phone], Service support [phone], CC: Chanel Varma DO Emergency Response Technician: Signed 21-Apr-2016 Emergency Department Summary Result: Comments: See Note; NOTES: [facility] Medical Records Department [address] [place] [address] Emergency Department Summary MR#: [id number] Acct: [id number] Name: BRYANT ABAD Rep #: [id number] : 1960 55 From: Saira Manriquez MD [...] 8 episodes of diarrhea. 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 Saira Manriquez MD T: NTS JOB: [id number] 04/21/16 0003 <Electronically signed b y Saira Manriquez MD> Date Saira Schmitz Signature (If Indicated): Date CC : Chanel Varma DO Date Dictated: 04/20/162320 Date Transcribed: 04/20/162320 Emergency Response Technician: Signed 20-Apr-2016 Discharge Instruction Result: Comments: See Note; NOTES: [facility] Medical Records Department [address] [place] [address] Discharge Instruction 04/20/162316 MR#: [id number] Acct: [id number] Name: LEATHA CONTEH Rep #: [id number] : 1960 55 From: Saira Manriquez MD [...] problems, contact your doctor. Call Doctors Registry ([phone]) or report to the closest Emergency Room. Call 04 [phone] if necessary. 04/20/162317 <Electronically signed by Saira Manriquez MD> Date Saira Schmitz Signature (If Indicat ed): Date CC: Chanel Varma DO 29-Cody-2016 PT D/C Summary (1) Result: Comments: See Note; NOTES: [facility] Physical Therapy [facility] [address] [place], [place] [address] Fax REHABILITATION SE KAUR DISCHARGE SUMMARY MR#: [id number] Acct: [id number] Name: LEATHA ABAD Rep #: [id number] : 1960 55 From: Marina Damico PT, Cert. MDT Referring DrLottie: Chanel Varma DO Statu s: REG RCR Insurance: [facility] HP - PT D/C Summary It has [...] BETTER. 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 Thank you for the referral of this patient. Sincerely, Marina Damico &#6 0;Electronically signed by Cert. KENDELL Arzola PTT> 02/07/16 1031 CC: Chanel Varma DO DOMONIQUE Signed 12-Dec-2015 Inital Evaluation (1) - PT Result: Comments: See Note; NOTES: [facility] Physical Therapy [facility] [address] [place] [address] Fax REHABILITATION SE RVICES INITIAL EVALUATION MR#: [id number] Acct: [id number] Name: LEATHA ABAD Rep #: [id number] : 1960 55 From: Cert. KENDELL Arzola PTT Referring Dr.: Chanel Varma DO Stat us: REG [facility] Insurance: [employer] [facility] Date: Patient's Visit Information LEATHA ABAD is [...] [address] EDIN COTTER AT [facility]. 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 SHE REPORTS SHE REGAINED MOST OF [...] WITH ERP, LEFT 80 DEG. JOSE LUIS AGRICULTURAL PLOW OPERATOR STRENGTH IS 20 LBS AND PROVOKES PAIN WITH TESTING. JOSE LUIS ELBOW, WRIST, FOREARM A ND HAND AROM IS SYMMETRICAL BUT ARTHRITIC AND THERE IS ERP WITH LEFT ELBOW EXTENSION. MMT NOT PERFORMED DUE TO SHOULDER AROM AND AGRICULTURAL PLOW OPERATOR TESTING PROVOKING PAIN. ANTERIOR CERVICAL INCISION LOOKS [...] to be FAXED BACK to us at [phone] for Medicare purposes. Please let me know if there are questions or concerns regarding this plan of care. Physician Signature: Date: <Electronically signed by Marina Damico PT, Cert. MDT> 12/12/15 1113 CC: Chanel Varma DO DOMONIQUE Signed For Medicare only, by signing this I certify the plan of care. Physicians Signature Date 06-Nov-2015 EKG (15898) Comments: nsr no acute chg Result: [MEASUREMENTS ANALYSIS] Date of Test: 11/06/2015 09:32:00; Heart Rate: 80; TX Interval: 190; QRS: 88; QT Interval: 354; Corrected QT Interval (QTc): 389; P Wave [place]: 37; QRS Wave [place]: -17; T Wave [place] : 37; Blood Pressure: 122/80 [ECG DIAGNOSTIC STATEMENTS] Date of Test: 11/06/2015 09:32:00; Summary: Sinus Rhythm WITHIN NORMAL LIMITS 18-Aug-2015 Spine Cervical (Routine) Result: Comments: See Note; NOTES: [facility] Imaging Services [address] [place] [address] Verdana 4d Spine Cervical (Routine) MR#: [id number] Acct: [id number] Name: LEATHA ARNETT Rep #: [id number] : 1960 F 54 From: Anand Zepeda MD PCP: Chanel Varma DO Status: REG CLI Study: Spine Cervical (Routine) Date of Exam: 08/18/15 Exam# [id number] Orderi cristobal Dr: Chanel Varma DO STUDY: [...] lordosis. Normal vertebral bodies and posterior osseous red cliff ents. C2-3: Normal endplates. Normal disc height, [...] at 18:12 EST Tel , Service support [phone], CC: Chanel Varma DO Emergency Response Technician: Signed 07-Aug-2015 Cerv Spine 2 or 3 Views Result: Comments: See Note; NOTES: [facility] Imaging Services [address] [place] [address] Verdana 4d Cerv Spine 2 or 3 Views MR#: [id number] Acct: [id number] Name: LEATHA BEE Rep #: [id number] : 1960 F 54 From: Lucho Villatoro MD PCP: Chanel Varma DO Status: REG CLI Study: Cerv Spine 2 or 3 Views Date of Exam: 08/07/15 Exam# [id number] Ordering Dr : Chanel Varma DO STUDY: [...] at 13:38 EST Tel , Service support [phone], RAD/Cerv Spine 2 or 3 Vi ews IMPRESSION: Normal x-ray examination of the visualized cervical spine. Electronically Signed: Terry Villatoro MD at 13:38 EST Tel , Service support [phone], CC: Chanel Varma DO Emergency Response Technician: Signed 25-Jul-2015 NCS and/or EMG Patient Result: Comments: See Note; NOTES: [facility] Pulmonary Services/Neurology [address] [place] [address] NCS and/or EMG Patient MR#: [id number] Acct: [id number] Name: LEATHA CARMOAN Rep #: [id number] : 1960 54 From: Ledy Cedillo MD Referring Dr: Spring Swartz Status: REG CLI Ordering Dr: Spring Swartz Date: 07/19/15 Location: [facility] Sex: F C DATE OF SERVICE: [...] me. Ledy Cedillo MD T: NTS JOB: [id number] 07/25/1515 <Electronically signed by Ledy Cedillo MD> Date Ledy Cedillo MD CC: Spring Swartz; Ledy Ceidllo; Chanel Varma DO Date Dictated: 07/19/151334 Date Transcribed: 07/19/151334 Emergency Response Technician: Signed 26-Jun-2015 PT D/C Summary Result: Comments: See Note; NOTES: [facility] Physical [facility] [address] [place] [address]. [address] [place] [address] Fax REHABILITATION RVICES DISCHARGE SUMMARY MR#: [id number] Acct: [id number] Name: LEATAH ABAD Rep #: [id number] : 1960 54 From: Marina Damico Referring [...] arnold feel free to call me at [phone]. Thank you for the referral of this patient. Sincerely, Marina Damico <Electronically signed by Marina Damico > 06/26/15 2580 CC: Spring Swartz; Chanel Varma DO DOMONIQUE Signed 07-Jun-2015 Inital Evaluation - PT Result: Comments: See Note; NOTES: [facility] [place] [address] Fax REHABILITATION SE RVICES INITIAL EVALUATION MR#: [id number] Acct: [id number] Name: LEATHA ABAD Rep #: [id number] : 1960 54 From: Marina Damico Referring Dr.: Spring Swartz Status: REG [facility] Insurance : [facility] Date: Patient's Visit Information LEATHA ABAD is [...] E HELPING. PATIENT DENIES NECK PAIN. 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 Please let me know if there are questions or concerns regarding this plan of care. Physician Signature: ____Date: <Electronically signed by Marina Damico > 06/07/15 1615 CC: Spring Swartz; Chanel Varma DO DOMONIQUE Signed For Medicare only, by signing this I certify the plan of care. Physicians Signature Date 24-May-2015 Forearm 2 Views Result: Comments: See Note; NOTES: [facility] Imaging Services [address] [place] [address] Radiology Report MR#: [id number] Acct: [id number] Name: LEATHA ABAD Shanika p #: [id number] : 1960 F 54 From: Lucho Morales MD PCP: Chanel Varma DO Status: REG CLI Study: Forearm 2 Views Date of Exam: 05/24/15 Exam# [id number] Ordering Dr: Spring Swartz STUDY: X-RAY - [...] MD at 16:22 EDT , Service support [phone], CC: Spring Swartz; Chanel Varma DO Emergency Response Technician: Signed 24-May-2015 Shoulder min 2 Views Result: Comments: See Note; NOTES: [facility] Imaging Services [address] [place] [address] Radiology Report MR#: [id number] Acct: [id number] Name: LEATHA ABAD p #: [id number] : 1960 F 54 From: Lucho Morales MD PCP: Chanel Varma DO Status: REG CLI Study: Shoulder min 2 Views Date of Exam: 05/24/15 Exam# [id number] Ordering Dr: Spring Swartz UDY: X-RAY - [...] MD at 16:24 EDT , Service support [phone], RAD/Shoulder min 2 Views IMPRESSION: Findings of calcific tendinitis of the rotator cuff. Electronically Signed: Terry Morales MD at 16:24 EDT , Ser vice support [phone], CC: Spring Swartz; Chanel Varma DO Emergency Response Technician: Signed 26-Apr-2015 Bilat Scrn Digital AND CAD Result: Comments: See Note; NOTES: [facility] Imaging Services [address] [place] [address] Breast Imaging Report MR#: [id number] Acct: [id number] Name: LEATHA ABAD p #: [id number] : 1960 F 54 From: Jordy Masters MD PCP: Chanel Varma DO Status: REG CLI Study: Bilat Scrn Digital AND CAD Date of Exam: 04/26/15 Exam# [id number] Ordering Dr: Chanel Varma DO MAMMOGRAPHY - [...] Jordy Masters MD at 9:11 EDT Tel [phone], Service support [phone], CC: Chanel Varma DO Emergency Response Technician: Signed 07-Apr-2015 Gallbladder Result: Comments: See Note; NOTES: [facility] Imaging Services [address] [place] [address] Ultrasound Report MR#: [id number] Acct: [id number] Name: LEATHA ABAD Rep #: [id number] : 1960 F 54 From: Jordy Masters MD PCP: Chanel Varma DO Status: REG CLI Study: Gallbladder Date of Exam: 04/07/15 Exam# [id number] Ordering Dr: Chanel Varma DO ST UDY: [...] Jordy Masters MD at 13:10 EDT Tel [phone], Service support [phone], CC: Chanel Varma DO Emergency Response Technician: Signed 01-Mar-2015 Emergency Department Summary Result: Comments: See Note; NOTES: [facility] Medical Records Department [address] [place] [address] Emergency Department Summary MR#: [id number] Acct: [id number] Name: LEATHA CARMONA Rep #: [id number] : 1960 54 From: Joey Ponce MD [...] C: Chanel Varma DO T: NTS JOB: [id number] 02/09 <Electronically signed by Joey Ponce MD> Date Joey Ponce MD CC: Chanel Varma DO Date Dictated: 02/28/15754 Date Transcribed: 02/28/15754 Emergency Response Technician: Signed 28-Feb-2015 Discharge Instruction Result: Comments: See Note; NOTES: [facility] Medical Records Department [address] [place] [address] Discharge Instruction 02/28/15 0744 MR#: [id number] Acct: [id number] Name: LEATHA ABAD Rep #: [id number] : 1960 54 From: Joey Ponce MD [...] contact y our doctor. Call Doctors Registry ([phone]) or report to the closest Emergency Room. Call 911 if necessary. 02/28/15 0745 <Electronically signed by Joey Ponce MD> Date ____ Joey Schmitz Signature (If Indicated): Date CC: Chanel Varma DO 07-Jan-2014 Esophagus Only Result: Comments: See Note; NOTES: [facility] Imaging Services [address] [place] [address] Radiology Report MR#: [id number] Acct: [id number] Name: LEATHA ABAD Rep #: [id number] : 1960 F 53 From: Jordy Masters MD PCP: Chanel Varma DO Status: REG CLI Study: Esophagus Only Date of Exam: 01/07/14 Exam# [id number] Ordering Dr: Chanel Varma TUDY: X-RAY - [...] Jordy Masters MD at 10:01 EDT Tel [phone], Service support [phone], CC: Chanel Varma DO; Stevan Ngo MD Emergency Response Technician: Signed Immunization Name Dates Details Influenza (3 years and up) on: 23-May-2009 Comments: Lot #[id number]-right deltoidgiven by:[facility] Pneumococcal (2 years and up) on: 02-Aug-2016 Comments: Site: Deltoid (Left) Lot #: [id number] Family History Unknown Family Member Name Dates [...] Status: Active 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 Prediabetes: 5.7 - 6.4 Diabetes: >6.4 Glycemic control for adults with diabetes: <7.0 :00 CBC W/Diff, Automated Comments: [facility] [address] [place], [place], [address] Absolute Lymph 2.33 {X10_3/ul} (Normal) Range: 0.83-4.51 [...] 4.2-5.4 WBC 9.3 K/mm3 (Normal) Range: 4.4-11.0 14-Qfz-59067:00 Comprehensive Metabolic Profil Comments: [facility] [address] [place], [address] GAP 10 (Normal) Range: 5-15 CO2 24.0 [...] A.D.A. criteria.Please note revised GLUCOSE reference range daijxtqpc38/02/2018. 0-Bhp-848610:58 CBC W/Diff, Automated Comments: DR. HUTCHISON ORDERED CMP CBCMINERVA SHEPHERD ORDERED CBCD [facility] [address] [place], [place], [phone] Absolute Lymph 2.63 {X10_3/ul} (Normal) Range: 0.83-4.51 [...] HUTCHISON ORDERED CMP CBCMINERVA SHEPHERD ORDERED CBCD [facility] [address] [place], [place], [address] GAP 9 (Normal) Range: 5-15 CO2 27.0 [...] A.D.A. criteria.Please note revised GLUCOSE reference range cioabonmi23/02/2018. 6-Lwo-068007:58 Prothrombin Time w/INR Comments: DR. HUTCHISON ORDERED CMP CBCDKSHIRA SHEPHERD ORDERED [facility] [address] [place], [place], [id number] INR 1.0 (Normal) PROTIME 13.5 s (Normal) Range: 11.7-14.9 60-Sra-258715:21 PT (PROTHROMBIN TIME) (07270) Comments: PATIENT NOT FASTINGPERFORMED BY: [facility]Sqjdzi4793 [facility] [id number] INR 1.0 (Normal) Range: 0.8-1.2 Comments: Reference interval is for non-anticoagulated patients. . Suggested INR therapeutic range for Vitamin K anta gonist therapy: Standard Dose (moderate intensity therapeutic range): 2.0 - 3.0 Higher intensity therapeutic range 2.5 - 3.5 Prothrombin Time 10.5 {sec} (Normal) Range: 9.1-12.0 20-Ppd-029494:21 CBC & PLATELETS (AUTO) Comments: PATIENT NOT FASTINGPERFORMED BY: [facility] Pkwtpn8438 [facility]man [facility] [id number] ([id number]) Platelets 288 {x10E3/uL} (Normal) Range: 150-379 RDW 13.6 % (Normal) Range: 12.3-15.4 MCHC 33.1 g/dL (Normal) Range: 31.5-35.7 MCH 30.0 pg (Normal) Range: 26.6-33.0 MCV 91 fL (Normal) Range: 79-97 Hematocrit 40.5 % (Normal) Range: 34.0-46.6 Hemoglobin 13.4 g/dL (Normal) Range: 11.1-15.9 RBC 4.47 {x10E6/uL} (Normal) Range: 3.77-5.28 WBC 6.7 {x10E3/uL} (Normal) Range: 3.4-10.8 17-Fvi-615401:35 Basic Metabolic Profile (BMP) Comments: [facility] [address] [place], [address] GAP 9 (Normal) Range: 5-15 CO2 29.0 [...] A.D.A. criteria.Please note revised GLUCOSE reference range uzxveqjje70/02/2018. 77-Ruk-383217:11 Bedside Glucose Comments: [facility] [place] [address] BEDSIDE GLU 203 mg/dL (Abnormal) Range: 70-110 Comments: MANAGEMENT OF PATIENT CARE PER NURSING PROTOCOL 09-Gxi-324013:23 CBC W/Diff, Automated Comments: [facility] [address] [place], [address] Absolute Lymph 2.83 {X10_3/ul} (Normal) [...] 4.2-5.4 WBC 6.9 K/mm3 (Normal) Range: 4.4-11.0 87-Suf-318302:23 Comprehensive Metabolic Profil Comments: [facility] [address] [place], [address] GAP 9 (Normal) Range: 5-15 CO2 29.0 [...] A.D.A. criteria.Please note revised GLUCOSE reference range uxfbyoyvb13/02/2018. 52-Uzj-814786:01 HEPATIC FUNCTION PANEL Comments: PATIENT WAS FASTINGPERFORMED BY: CHARLES [facility] ImagingLe[facility] Regional Medical CenterObgeiw1994 [facility] [id number] (51492) ALT (SGPT) 22 [iU]/L (Normal) Range: 0-32 AST (SGOT) 27 [iU]/L (Normal) Range: 0-40 Alkaline Phosphatase 58 [iU]/L (Normal) Range: 39-117 Bilirubin, Direct 0.12 mg/dL (Normal) Range: 0.00-0.40 Bilirubin, Total 0.5 mg/dL (Normal) Range: 0.0-1.2 Albumin 4.4 g/dL (Normal) Range: 3.5-5.5 Protein, Total 7.6 g/dL (Normal) Range: 6.0-8.5 02-Ppk-273497:01 Lipid Panel (06881) Comments: PATIENT WAS FASTINGPERFORMED BY: [employer] Tstobd6554 [facility] [id number] LDL/HDL Ratio 2.9 {ratio} (Normal) Range: 0.0-3.2 Comments: LDL/HDL Ratio Men Women 1/2 Avg.Risk 1.0 1.5 Av g.Risk 3.6 3.2 2X Avg.Risk 6.2 5.0 3X Avg.Risk 8.0 6.1 LDL Cholesterol Calc 116 mg/dL (Abnormal) Range: 0-99 VLDL Cholesterol Daniel 44 mg/dL (Abnormal) Range: 5-40 HDL Cholesterol 40 mg/dL (Normal) Triglycerides 220 mg/dL (Abnormal) Range: 0-149 Cholesterol, Total 200 mg/dL (Abnormal) Range: 100-199 7-Ycy-008145:04 Microscopic Examination Comments: PATIENT WAS FASTINGPERFORMED BY: [facility] ImagingCap[facility]Jwclyk1476 [facility] [id number] Bacteria Few (Normal) Mucus Threads Present (Normal) Epithelial Cells (non renal) 0-10 {/hpf} (Normal) Range: 0 - 10 RBC 0-2 {/hpf} (Normal) Range: 0 - 2 WBC 6-10 {/hpf} (Abnormal) Range: 0 - 5 6-Wgt-464929:04 Protein Electro, Random Urine Comments: PATIENT WAS FASTINGPERFORMED BY: [facility] ImagingLea Regional Medical CenterNorfuk9825 [facility] [id number] Please note: SPRCS (Normal) Comments: Protein electrophoresis scan will follow via computer, mail, orcourier delivery. M-Sukhwinder, % Comment: % (Normal) Comments: ASYMMETRICAL GAMMA Gamma Globulin, U 17.8 % (Normal) Beta Globulin, U 19.6 % (Normal) Jthaw-9-Cguybnhr, U 16.1 % (Normal) Fqoiu-2-Eoczxslt, U 5.4 % (Normal) Albumin, U 41.1 % (Normal) Protein,Total,Urine 9.5 mg/dL (Normal) 95-Ybj-712531:00 HGB A1C (18847) Comments: do in 3months; PATIENT WAS FASTINGPERFORMED BY: [employer] Wahtmq7822 [facility] [id number] Hemoglobin A1c 7.8 % (Abnormal) Range: 4.8-5.6 Comments: . Pre-diabetes: 5.7 - 6.4 Diabetes: >6.4 Glycemic control for adults with diabetes: <7.0 1-Fdt-404870:04 HGB A1C (77514) Comments: PATIENT WAS FASTINGPERFORMED BY: [facility]Mzivys8250 [facility] [id number] Hemoglobin A1c 7.1 % (Abnormal) Range: 4.8-5.6 Comments: . Pre-diabetes: 5.7 - 6.4 Diabetes: >6.4 Glycemic control for adults with diabetes: <7.0 7-Dit-009958:04 KXOOC-BULSGMBHIJM-OBAWU (45405) Comments: PATIENT WAS FASTINGPERFORMED BY: [employer] Gvjpng3590 [facility] [id number] AFP, Serum, Tumor Marker 2.1 ng/mL (Normal) Range: 0.0-8.3 Comments: Aric ECLIA methodology 4-Sqb-593824:04 TSH (29328) Comments: PATIENT WAS FASTINGPERFORMED BY: [facility] [facility] Wwatgd6758 [facility] [id number] TSH 3.660 {uIU/mL} (Normal) Range: 0.450-4.500 5-Xnx-662577:04 URINALYSIS, W/ MICRO (90973) Comments: PATIENT WAS FASTINGPERFORMED BY: [facility] ImagingCap[facility]Yizbur9438 [facility] [id number] Microscopic Examination See below: (Normal) Comments: Microscopic was indicated and was performed. Nitrite, Urine Negative (Normal) Urobilinogen,Semi-Qn 0.2 mg/dL (Normal) Range: 0.2-1.0 Bilirubin Negative (Normal) Occult Blood Negative (Normal) Ketones Negative (Normal) Glucose Negative (Normal) Protein Negative (Normal) WBC Esterase 1+ (Abnormal) Appearance Clear (Normal) Urine-Color Yellow (Normal) pH 5.0 (Normal) Range: 5.0-7.5 Specific Dwight 1.020 (Normal) Range: 1.005-1.030 5-Ueh-823529:04 MICROALBUMIN: CREATININE RATIO Comments: PATIENT WAS FASTINGPERFORMED BY: [facility]Mldgyj4822 [facility] [id number] (64843) AND (70667) Alb/Creat Ratio 8.5 {mg/g_creat} (Normal) Range: 0.0-30.0 Albumin, Urine 11.4 ug/mL (Normal) Creatinine, Urine 134.1 mg/dL (Normal) 2-Eom-814575:04 LIPID PANEL (82898) Comments: PATIENT WAS FASTINGPERFORMED BY: [facility]Ncprai9506 [facility] [id number] LDL/HDL Ratio 2.6 {ratio_units} (Normal) Range: 0.0-3.2 Comments: LDL/HDL Ratio Men Women 1/2 Avg.Risk 1.0 1.5 Av g.Risk 3.6 3.2 2X Avg.Risk 6.2 5.0 3X Avg.Risk 8.0 6.1 LDL Cholesterol Calc 135 mg/dL (Abnormal) Range: 0-99 VLDL Cholesterol Daniel 25 mg/dL (Normal) Range: 5-40 HDL Cholesterol 51 mg/dL (Normal) Triglycerides 127 mg/dL (Normal) Range: 0-149 Cholesterol, Total 211 mg/dL (Abnormal) Range: 100-199 9-Xcc-599881:04 CALCIFEDIOL (81668) Comments: PATIENT WAS FASTINGPERFORMED BY: [facility] Pxmvgr6709 [facility] [place] [id number] Vitamin D, 25-Hydroxy 56.1 ng/mL (Normal) Range: 30.0-100.0 Comments: Vitamin D deficiency has been defined by the [place] of[place] and an Endocrine Society practice guideline as alevel of serum 25-OH vitamin D less than 20 ng/mL (1,2).The Endocrine Society went on to further define vitamin Dinsufficiency as a level between 21 and 29 ng/mL (2).1. IOM ([place] of Medicine). 2010. Dietary reference intakes for calcium and D. Real [place]: The National Academies Press.2. Mekhi MF, Dee Dee HADDAD, Fransisco HERNDON, et al. Evaluation, treatment, and prevention of vitamin D deficiency: an Endocrine Society clinical practice guideline. JCEM. 2010; 96(7):1911-30. 1-Vmx-754869:04 Serum Protein Electrophoresis Comments: PATIENT WAS FASTINGPERFORMED BY: [employer] Xvnviz8466 [facility] [id number] (SPEP) (63366) Please note: SPRCS (Normal) Comments: Protein electrophoresis scan will follow via computer, mail, orcourier delivery. A/G Ratio 0.9 (Normal) Range: 0.7-1.7 Globulin, Total 3.9 g/dL (Normal) Range: 2.2-3.9 M-Sukhwinder Not Observed g/dL (Normal) Gamma Globulin 1.3 g/dL (Normal) Range: 0.4-1.8 Beta Globulin 1.3 g/dL (Normal) Range: 0.7-1.3 Eqeec-4-Zgkwoylk 1.1 g/dL (Abnormal) Range: 0.4-1.0 Bokzf-7-Esjtftja 0.3 g/dL (Normal) Range: 0.0-0.4 Albumin 3.4 g/dL (Normal) Range: 2.9-4.4 Protein, Total, Serum 7.3 g/dL (Normal) Range: 6.0-8.5 48-Ici-627555:43 Crystals, Body Fluid Comments: [facility] [address] [place], [place], [address] PATH REV Reviewed (Normal) Comments: Negative for malignant cells.Acute inflammation.A few crystals are oted (mixture of nondescript and calciumpyrophosphate).Clinical correlation necessary.Michelet Bills M.D. 09/26/17 AMENDED REPORT 1011 PATH REV previously reported as: Will follow SOURCE/BF SYNOVIAL (Normal) CRYSTALS/BF CALCIUM PYROPHOS (Normal) 67-Wyk-509176:43 Culture, Body Fluid Comments: [facility] [address] [place], [place], [address] CUBF See Note (Normal) Comments: List Antibiotics Last 48 Hours? UNKList Antibiotics to be Started? UNKComments: RIGHT KNEEGram StainCentrifuged Specimen? Culture performed on centrifuged specimen Gram Stain 3+ White Blood Cells No organisms seen Body Fluid CultNO GROWTH IN 14 DAYS Cult, AnaerobicNo growth in 5 days. 29-Yos-933254:43 Synovial Fluid RBC, WBC AND Comments: [facility] [address] [place], [place], [address] Diff PATH COM/SYFL May follow (Normal) MONO [...] Yellow (Normal) SYNOVIAL SOURCE R KNEE (Normal) 1-Yjo-144216:51 CBC W/Diff, Automated Comments: [facility] [address] [place], [place], [address] Absolute Lymph 2.59 {X10_3/ul} (Normal) Range: 0.83-4.51 [...] 4.2-5.4 WBC 10.5 K/mm3 (Normal) Range: 4.4-11.0 6-Uqn-688890:51 Comprehensive Metabolic Profil Comments: [facility] [address] [place], [place], [address] GAP 9 (Normal) Range: 5-15 CO2 26.0 mmol/L (Normal) Range: 21.0-32.0 CL 100 mmol/L (Normal) Range: 98-107 K 4.0 mmol/L (Normal) Range: 3.5-5.1 NA 135 mmol/L (Abnormal) Range: 136-145 T BILI 0.30 mg/dL (Normal) Range: 0.20-1.00 ALT 16 U/L (Normal) Range: 13-56 Comments: Please note revised ALT reference range urjjorvnv93/28/2018. ALK P 83 U/L (Normal) Range: 45-117 [...] 126 mg/dLsuggests DIABETES MELLITUS per A.D.A. criteria. 65-Xim-933417:41 CBC W/Diff, Automated Comments: [facility] [address] [place], [address] Absolute Lymph 2.10 {X10_3/ul} (Normal) Range: 0.83-4.51 [...] 4.2-5.4 WBC 9.4 K/mm3 (Normal) Range: 4.4-11.0 41-Wan-102077:41 Comprehensive Metabolic Profil Comments: [facility] [address] [facility] [place], [place], [address] GAP 10 (Normal) Range: 5-15 CO2 27.0 [...] 126 mg/dLsuggests DIABETES MELLITUS per A.D.A. criteria. 88-Cct-814113:10 CBC W/Diff, Automated Comments: CMP,CBCD FOR DR HUTCHISON WELL [facility] [address] [place], [address] Absolute Lymph 2.93 {X10_3/ul} (Normal) Range: 0.83-4.51 [...] 4.2-5.4 WBC 8.5 K/mm3 (Normal) Range: 4.4-11.0 12-Hpg-865157:10 Comprehensive Metabolic Profil Comments: CMP,CBCD FOR DR HUTCHISON WE[facility] [address] [place], [place], [address] GAP 9 (Normal) Range: 5-15 CO2 26.0 [...] 126 mg/dLsuggests DIABETES MELLITUS per A.D.A. criteria. 74-Tlp-253713:10 Lipid Profile Comments: CMP,CBCD FOR DR HUTCHISON WE[facility] [address] [place], [address] VLDL 36 mg/dL (Normal) Range: [...] 200-240 mg/dL Borderline >240 mg/dL High Risk 43-Vig-038359:10 Microalb:Creat Ratio,Random UR Comments: CMP,CBCD FOR DR HUTCHISON WE[facility] [address] [place], [address] MALB:CREAT 13.6 {mg/g_CRE} (Normal) MICROALBUMIN,UR 16.9 mg/L (Normal) UR CREAT 124.00 mg/dL (Normal) 94-Jyg-022262:10 Thyroid Stim Hormone (TSH) Comments: CMP,CBCD FOR DR HUTCHISON WE[facility] [address] [place], [address] TSH 1.11 {uIU/mL} (Normal) Range: 0.358-3.74 69-Srp-926634:10 Urinalysis, Complete Comments: CMP,CBCD FOR DR HUTCHISON WELL Sakshi was Urine Obtained? [facility] [address] [place], [address] MUCUS, URINE 0 SEEN {/hpf} [...] CLARITY Sl. Cloudy (Normal) COLOR Yellow (Normal) 17-Yfn-682279:10 Vitamin D,25 Hydroxy Comments: CMP,CBCD FOR DR HUTCHISON WELL [facility] Jcnolfmixk4924 [facility] [place], [place], [address] Vitamin D 25-OH 108.1 ng/mL (Normal) Comments: [...] is nointerference with Vitamin D test results. 38-Ddj-396454:59 HgA1C , Office (23316) HgA1C , Office 7.3 % (Abnormal) Range: 4.6 - 7.1 48-Avl-001142:59 Blood Glucose , Office (75926) Blood Glucose , Office 192 (Normal) 54-Okl-902856:16 Rapid Flu (67457 x 2) Influenza A Ag neg a and b (Normal) 1-Yvw-449820:14 URINE LISANDRO CULTURE-IDENTIFICATN Comments: PATIENT NOT FASTINGPERFORMED BY: CHARLES [facility] Rmxzdx8276 [facility] [id number] Information: SRC:UC (35289) Result 1 MUG (Normal) Comments: Mixed urogenital flora10,000-25,000 colony forming units per mL Urine Final report (Normal) Culture,Comprehensive 1-Mqj-639570:00 Urinalysis, Office (40864) UA - LEUKOCYTE ESTERASE Trace (Normal) UA - NITRITE Negative (Normal) URINE UROBILINGN NHAN TIMED Normal mg/dL (Normal) UA - PROTEIN Negative mg/dL (Normal) UA - PH 5 (Abnormal) UA - BLOOD Negative (Normal) UA - SPECIFIC GRAVITY 1.025 (Normal) UA - KETONES Negative mg/dL (Normal) UA - BILIRUBIN Small (Normal) UA - GLUCOSE Negative (Normal) 5-Gzs-797307:59 Blood Glucose , Office (57515) Blood Glucose , Office 117 (Normal) 8-Aen-609729:06 Rapid Flu (85437 x 2) Influenza A Ag neg (Normal) :04 HgA1C , Office (43932) HgA1C , Office 6.9 % (Normal) Range: 4.6 - 7.1 :04 Blood Glucose , Office (74490) Blood Glucose , Office 153 (Normal) 6-Pap-939689:11 CBC W/Diff, Automated Comments: [facility] [address] [place], [place], [address] Absolute Lymph 2.54 {X10_3/ul} (Normal) Range: 0.83-4.51 [...] 4.2-5.4 WBC 7.8 K/mm3 (Normal) Range: 4.4-11.0 5-Jri-976066:11 Comprehensive Metabolic Profil Comments: [facility] [address] [place], [place], [address] GAP 6 (Normal) Range: 5-15 CO2 29.0 [...] 200 mg/dLsuggests DIABETES MELLITUS per A.D.A. criteria. 86-Vpa-709865:47 Pap IG, HPV-hr Comments: No. of containers..01 CYTYC Thin Prep VialPERFORMED BY: WB [employer]120 [facility] [place] W [id number] BY: =G [facility] Ijsygnkiuq701 [facility] [place] W [id number] Information: [id number] HPV, high-risk Negative Comments: This high-risk HPV [...] squamous metaplasticcells (endocervical component) are present.Z01.419Z11.51Leslie Muñoz Small Piece Cutter (ASCP) :56 HgA1C , Office (91616) HgA1C , Office 6.4 % (Normal) Range: 4.6 - 7.1 :56 Blood Glucose , Office (56387) Blood Glucose , Office 132 (Normal) :21 Microscopic Examination Comments: PATIENT WAS FASTINGPERFORMED BY: [facility] Zdsrrc5749 Aleman RoadDuAtrium Health Stanly [id number] Bacteria None seen (Normal) Mucus Threads Present (Normal) Cast Type Hyaline casts (Normal) Casts Present {/lpf} (Abnormal) Epithelial Cells (non renal) 0-10 {/hpf} (Normal) Range: 0 - 10 RBC 0-2 {/hpf} (Normal) Range: 0 - 2 WBC 0-5 {/hpf} (Normal) Range: 0 - 5 :15 CBC W/Diff, Automated Comments: [facility] [address] [place], [place], [address] Absolute Lymph 3.05 {X10_3/ul} (Normal) Range: 0.83-4.51 [...] 4.2-5.4 WBC 9.4 K/mm3 (Normal) Range: 4.4-11.0 31-Gbo-688769:15 Comprehensive Metabolic Profil Comments: [facility] [address] [place], [place], [address] GAP 8 (Normal) Range: 5-15 CO2 27.0 [...] HOMEOSTASIS per A.D.A. criteria. :15 Lipase Comments: [facility] Mgvfdkoafd2589Michael ClarkSaint [place], [place], [address] LIPASE 206 U/L (Normal) Range: 73-393 :54 CBC W/Diff, Automated Comments: [facility] [address] [place], [place], [address] Absolute Lymph 2.75 {X10_3/ul} (Normal) Range: 0.83-4.51 [...] 4.2-5.4 WBC 5.7 K/mm3 (Normal) Range: 4.4-11.0 8-Zig-679727:54 Comprehensive Metabolic Profil Comments: [facility] [address] [place], [address] GAP 6 (Normal) Range: 5-15 CO2 30.0 [...] <126 mg/dLsuggests IMPAIRED HOMEOSTASIS per A.D.A. criteria. 0-Exu-679535:21 CALCIFIDIOL (40941) VIT D 25 Comments: PATIENT WAS FASTINGPERFORMED BY: [facility] Wnzhuu7442 [facility] [id number] Vitamin D, 25-Hydroxy 114.0 ng/mL (Abnormal) Range: 30.0-100.0 Comments: Vitamin D deficiency has been defined by the [place] of[place] and an Endocrine Society practice guideline as alevel of serum 25-OH vitamin D less than 20 ng/mL (1,2).The Endocrine Society went on to further define vitamin Dinsufficiency as a level between 21 and 29 ng/mL (2).1. IOM ([place] of [employer]). 2010. Dietary reference intakes for calcium and D. Real [place]: The National Academies Press.2. Mekhi MF, Dee Dee HADDAD, Fransisco HERNDON, et al. Evaluation, treatment, and prevention of vitamin D deficiency: an Endocrine Society clinical practice guideline. JCEM. 2010; 96(7):1911-30. :21 TSH (66169) Comments: PATIENT WAS FASTINGPERFORMED BY: [employer] [place] [id number] TSH 2.730 {uIU/mL} (Normal) Range: 0.450-4.500 :21 URINALYSIS, W/ MICRO (48759) Comments: PATIENT WAS FASTINGPERFORMED BY: [employer]70 LMN-1[facility] [id number] Microscopic Examination See below: (Normal) Comments: Microscopic was indicated and was performed. Nitrite, Urine Negative (Normal) Urobilinogen,Semi-Qn 0.2 mg/dL (Normal) Range: 0.2-1.0 Bilirubin Negative (Normal) Occult Blood Negative (Normal) Ketones Negative (Normal) Glucose Negative (Normal) Protein Negative (Normal) WBC Esterase Trace (Abnormal) Appearance Clear (Normal) Urine-Color Yellow (Normal) pH 6.0 (Normal) Range: 5.0-7.5 Specific Dwight 1.020 (Normal) Range: 1.005-1.030 :21 MICROALBUMIN: CREATININE RATIO Comments: PATIENT WAS FASTINGPERFORMED BY: [employer]70 LMN-1[facility] [id number] (67329) AND (87225) Microalb/Creat Ratio 5.3 {mg/g_creat} (Normal) Range: 0.0-30.0 Microalbumin, Urine 7.4 ug/mL (Normal) Creatinine, Urine 139.7 mg/dL (Normal) 7-Brp-696666:21 METABOLIC PANEL, COMPREHENSIVE Comments: PATIENT WAS FASTINGPERFORMED BY: CHARLES [facility] Bqskkm9727 [facility] [id number] (75823) ALT (SGPT) 20 [iU]/L (Normal) Range: 0-32 [...] DIFF WBC Comments: PATIENT WAS FASTINGPERFORMED BY: [facility]Moljvy8136 [facility] [id number] Information: [id number] (39806) Immature Grans (Abs) 0.0 {x10E3/uL} (Normal) Range: [...] (Normal) Range: 3.4-10.8 :07 HgA1C , Office (08815) HgA1C , Office 5.8 % (Normal) Range: 4.6 - 7.1 :07 Blood Glucose , Office (85650) Blood Glucose , Office 92 (Normal) :05 HgA1C , Office (67916) HgA1C , Office 6.6 % (Normal) Range: 4.6 - 7.1 :05 Blood Glucose , Office (00928) Blood Glucose , Office 130 (Normal) :46 CBC W/Diff, Automated Comments: [facility] [address] [place], [place], [address] Absolute Lymph 3.03 {X10_3/ul} (Normal) Range: 0.83-4.51 [...] Range: 4.4-11.0 :46 Comprehensive Metabolic Profil Comments: [facility] [address] [place], [address] GAP 7 (Normal) Range: 5-15 CO2 29.0 [...] A.D.A. criteria. :09 Blood Glucose , Office (42826) Blood Glucose , Office 181 (Normal) :09 HgA1C , Office (06118) HgA1C , Office 7.1 % (Normal) Range: 4.6 - 7.1 7-Hlj-023562:50 AFP, Tumor Marker Comments: Is Patient ? NComments: [facility] (refer to report for specific site)refer to report for address and phone number AFP TUMOR 2253 1.6 ng/mL (Normal) Range: 0.0-8.3 Comments: Jymob ECLIA methodologyPerformed at: CB - [facility] [address] [id number] Director: Herve Mata PhD, Phone: [phone] 1-Goq-260339:50 CBC W/Diff, Automated Comments: [facility] [address] [place], [address] Absolute Lymph 3.23 {X10_3/ul} (Normal) [...] 4.2-5.4 WBC 7.6 K/mm3 (Normal) Range: 4.4-11.0 9-Iwm-032490:50 Comprehensive Metabolic Profil Comments: Comments: [facility] [address] [place], [place], [address] GAP 6 (Normal) Range: 5-15 CO2 28.0 [...] <126 mg/dLsuggests IMPAIRED HOMEOSTASIS per A.D.A. criteria. 9-Foa-017915:50 Lipid Profile Comments: Comments: [facility] [address] [place], [place], [address] VLDL 34 mg/dL (Normal) Range: 5-40 LDL [...] High Risk :50 Microalb:Creat Ratio,Random UR Comments: [facility] [address] [place], [place], [address] MALB:CREAT 15.3 {mg/g_CRE} (Normal) MICROALBUMIN,UR 20.4 mg/L (Normal) UR CREAT 133.00 mg/dL (Normal) :50 Prothrombin Time w/INR Comments: [facility] [address] [place], [address] INR 0.9 (Normal) PROTIME 12.8 s (Normal) Range: 11.7-14.9 :50 Thyroid Stim Hormone (TSH) Comments: Comments: [facility] [address] [place], [address] TSH 1.00 {uIU/mL} (Normal) Range: 0.358-3.74 :50 Urinalysis, Complete Comments: Comments: NHow was Urine Obtained? U[facility], [facility] [address] [place], [address] MUCUS, URINE 0 SEEN {/hpf} (Normal) [...] (Normal) CLARITY Clear (Normal) COLOR Yellow (Normal) 4-Kki-068674:50 Vitamin D,25 Hydroxy Comments: [facility] [address] [place], [address] Vitamin D 25-OH 81.8 ng/mL (Normal) Comments: Vitamin D 25(OH) Status Range Deficiency <20 ng/mL (50nmol/L) Insuffciency 20 - 30 ng/mL (50 - 75 nmol/L) Sufficiency 30 - 100 ng/mL (75 - 250 nmol/L) Toxicity >100 ng/mL (>250 nmol/L) 6-Ltj-583084:27 HPV automatic Comments: Source.............Cervical;EndocervicalNo. of containers..01 CYTYC Thin Prep VialPATIENT NOT FASTINGPERFORMED BY: WB [facility] Jpukwcgtkn038 [facility] [id number] BY: =G L (88012) [facility] Mxrfigxwfa139 [facility] [place] [id number] Information: [id number] HPV, high-risk Negative Comments: This high-risk HPV [...] metaplasticcells (endocervical component) are present.V70.0Samantha Agnieszka cotter, Small Piece Cutter ([facility]) 84-Ymw-099878:27 Amylase (09281) Comments: PATIENT NOT FASTINGPERFORMED BY: [facility] Ymqroy4838 [facility] [id number] Amylase, Serum 58 U/L (Normal) Range: 31-124 66-Shm-628449:27 Lipase (39615) Comments: PATIENT NOT FASTINGPERFORMED BY: [facility] Ojmtut0457 [facility] [id number] Lipase, Serum 46 U/L (Normal) Range: 0-59 94-Yic-060107:27 Sed Rate Erythrocyte (96478) Comments: PATIENT NOT FASTINGPERFORMED BY: [facility]Ocpddd6517 [facility] [id number] Sedimentation Rate-Westergren 21 mm/h (Normal) Range: 0-40 52-Ipz-753053:27 Metabolic Panel, Comprehensive Comments: PATIENT NOT FASTINGPERFORMED BY: [facility]Rxeuen4645 [facility] [id number] (05088) ALT (SGPT) 16 [iU]/L (Normal) Range: 0-32 [...] Glucose, Serum 177 mg/dL (Abnormal) Range: 65-99 37-Sot-387013:27 CBC with auto diff Comments: PATIENT NOT FASTINGPERFORMED BY: [facility]Ftoeeu3155 [facility] [id number] Information: [id number] (87391) Immature Grans (Abs) 0.0 {x10E3/uL} (Normal) Range: [...] (Normal) Range: 3.4-10.8 :04 HgA1C , Office (55275) HgA1C , Office 6.3 % (Normal) Range: 4.6 - 7.1 :04 Blood Glucose , Office (42021) Blood Glucose , Office 131 (Normal) :21 CBC W/Diff, Automated Comments: Test performed at:[facility] [address] [place] [address] Absolute Lymph 3.64 {X10_3/ul} (Normal) Range: 0.83-4.51 [...] 14-Mar-20158:21 Comprehensive Metabolic Profil Comments: Test performed at:[facility] [address] [place] [address] GAP 9 (Normal) Range: 5-15 [...] Comments: Please note revised CREATININE reference range idjkaqmvw29/22/2015. BUN 16 mg/dL (Normal) Range: 7-18 GLU 100 mg/dL (Normal) Range: 70-110 35-Vcu-81037:45 Basic Metabolic Profile (BMP) Comments: Test performed at:[facility] [address] [place] [address] GAP 11 (Normal) Range: 5-15 [...] 126 mg/dLsuggests DIABETES MELLITUS per A.D.A. criteria. 77-Ngj-14826:45 CBC W/Diff, Automated Comments: Test performed at:[facility] [address]megnao[address] [place]iter[place], [place] [address] Absolute Lymph 2.61 {X10_3/ul} (Normal) Range: 0.83-4.51 [...] Range: 4.4-11.0 :45 Lipase Comments: Test performed at:[facility] Haxaihvndm6667 [facility] [place] [address] LIPASE 229 U/L (Normal) Range: 70-290 :45 Liver Profile Comments: Test performed at:[facility] Dsiczopioi3450 [facility] [place] [address] D BILI 0.11 mg/dL (Normal) Range: 0.00-0.30 T BILI 0.60 mg/dL (Normal) Range: 0.20-1.00 ALT 22 U/L (Normal) Range: 12-78 ALK P 103 U/L (Normal) Range: 50-136 AST 19 U/L (Normal) Range: 15-37 GLOB 5.3 g/dL (Abnormal) Range: 2.7-4.2 ALB 4.0 g/dL (Normal) Range: 3.4-5.0 T PROT 9.3 g/dL (Abnormal) Range: 6.4-8.2 :04 HgA1C , Office (29259) HgA1C , Office 6.2 % (Normal) Range: 4.6 - 7.1 :04 Blood Glucose , Office (04761) Blood Glucose , Office 124 (Normal) [id number] CBC With Differential/Platelet Comments: PATIENT WAS FASTINGPERFORMED BY: [facility][id number] [facility] [id number] Information: [id number] Immature Grans (Abs) 0.0 {x10E3/uL} (Normal) Range: [...] 3.77-5.28 WBC 8.3 {x10E3/uL} (Normal) Range: 3.4-10.8 [id number] Comp. Metabolic Panel (14) Comments: PATIENT WAS FASTINGPERFORMED BY: [facility][id number] [facility] [id number] ALT (SGPT) 14 [iU]/L (Normal) Range: 0-32 [...] Glucose, Serum 88 mg/dL (Normal) Range: 65-99 [id number] Lipid Panel With LDL/HDL Comments: PATIENT WAS FASTINGPERFORMED BY: [facility]yConnectAt[facility] [id number] Ratio LDL/HDL Ratio 3.2 {ratio_units} (Normal) Range: [...] Cholesterol, Total 229 mg/dL (Abnormal) Range: 100-199 75-Lqy-973257:39 Microalb/Creat Ratio, Randm Ur Comments: PATIENT WAS FASTINGPERFORMED BY: [facility]ConnectAt[facility] [id number] Microalb/Creat Ratio 9.6 {mg/g_creat} (Normal) Range: 0.0-30.0 Microalbumin, Urine 25.3 ug/mL (Abnormal) Range: 0.0-17.0 Creatinine, Urine 263.9 mg/dL (Normal) Range: 15.0-278.0 :39 Microscopic Examination Comments: PATIENT WAS FASTINGPERFORMED BY: MoovwebSt. Luke'S HospitalDvopec5692 [facility] [id number] Bacteria Few (Normal) Mucus Threads Present (Normal) Epithelial Cells (non 0-10 {/hpf} Range: 0 - 10 renal) (Normal) RBC 0-2 {/hpf} (Normal) Range: 0 - 2 WBC 11-30 {/hpf} Range: 0 - 5 (Abnormal) TSH 2.990 {uIU/mL} Comments: PATIENT WAS FASTINGPERFORMED BY: [facility] Sedfxw6576 [facility] [id number] 5:39 (Normal) Range: 0.450-4.500 :39 Urinalysis, Complete Comments: PATIENT WAS FASTINGPERFORMED BY: [facility] Fgtqvu3543 [facility] [id number] Microscopic Examination See below: (Normal) Comments: Microscopic was indicated and was performed. Nitrite, Urine Negative (Normal) Urobilinogen,Semi-Qn 0.2 mg/dL (Normal) Range: 0.0-1.9 Bilirubin Negative (Normal) Occult Blood Negative (Normal) Ketones Negative (Normal) Glucose Negative (Normal) Protein Negative (Normal) WBC Esterase 1+ (Abnormal) Appearance Clear (Normal) Urine-Color Yellow (Normal) pH 5.0 (Normal) Range: 5.0-7.5 Specific Dwight 1.025 (Normal) Range: 1.005-1.030 Vitamin D, 25-Hydroxy 85.8 ng/mL (Normal) Comments: PATIENT WAS FASTINGPERFORMED BY: MoovwebPromedica [facility] Hospital6370 [facility] [id number] 5:39 Range: 30.0-100.0 Comments: Vitamin D deficiency has been defined by the [place] of[place]icine and an Endocrine Society practice guideline as alevel of serum 25-OH vitamin D less than 20 ng/mL (1,2).The Endocrine Society went on to further define vitamin Dinsufficiency as a level between 21 and 29 ng/mL (2).1. IOM ([place] of Medicine). 2010. Dietary reference intakes for calcium and D. Real [place]: The National Academies Press.2. Mekhi MF, [place], Fransisco HERNDON, et al. Evaluation, treatment, and prevention of vitamin D deficiency: an Endocrine Society clinical practice guideline. JCEM. 2010; 96(7):1911-30. :49 CBC W/Diff, Automated Comments: Test performed at:[facility] Xvyylglfin9896 [facility] [address] [place], [place] [address] Absolute Lymph 3.72 {X10_3/ul} (Normal) Range: 0.83-4.51 [...] :49 Comprehensive Metabolic Profil Comments: Test performed at:[facility] Hfgjpgtnvh[address] [place] [address] GAP 7 (Normal) Range: 5-15 CO2 30.0 [...] 126 mg/dLsuggests DIABETES MELLITUS per A.D.A. criteria. 4-Hon-256404:31 Sed Rate Erythrocyte (67791) Comments: PATIENT NOT FASTINGPERFORMED BY: [facility] Cjhuya2964 [facility] [id number] Sedimentation Rate-Westergren 33 mm/h (Normal) Range: 0-40 5-Xst-567690:31 METABOLIC PANEL, COMPREHENSIVE Comments: PATIENT NOT FASTINGPERFORMED BY: LabKiteDeskLea Regional Medical CenterBcwija9844 [facility] [id number] (45151) ALT (SGPT) 14 [iU]/L (Normal) Range: 0-32 [...] Glucose, Serum 107 mg/dL (Abnormal) Range: 65-99 6-Mxy-538125:31 CBC W/AUTO DIFF WBC Comments: PATIENT NOT FASTINGPERFORMED BY: [facility] Hxvmuu5532 [facility] [id number] Information: [id number] (93799) Immature Grans (Abs) 0.0 {x10E3/uL} (Normal) Range: [...] (Normal) Range: 3.4-10.8 :18 HgA1C , Office (38493) HgA1C , Office 6.2 % (Normal) Range: 4.6 - 7.1 :18 Blood Glucose , Office (97813) Blood Glucose , Office 131 (Normal) :12 CBC W/AUTO DIFF WBC Comments: PATIENT WAS FASTINGPERFORMED BY: [facility] [id number] Information: [id number] (57803) Immature Grans (Abs) 0.0 {x10E3/uL} (Normal) Range: [...] 3.77-5.28 WBC 6.4 {x10E3/uL} (Normal) Range: 3.4-10.8 58-Idd-40674:12 METABOLIC PANEL, COMPREHENSIVE Comments: PATIENT WAS FASTINGPERFORMED BY: [facility]CoCap[facility]Xjfbtn8584 [facility] [id number] (89503) ALT (SGPT) 28 [iU]/L (Normal) Range: 0-32 [...] mg/dL (Normal) Range: 65-99 :12 LIPID PANEL (46214) Comments: PATIENT WAS FASTINGPERFORMED BY: [facility]CoCapital [facility])Ilhbts1805 [facility] [id number] LDL/HDL Ratio 1.9 {ratio_units} (Normal) Range: 0.0-3.2 [...] (Normal) Range: 100-199 :44 HgA1C , Office (37202) HgA1C , Office 6.1 % (Normal) Range: 4.6 - 7.1 1-Qyw-507833:24 CBCD ALC 2.61 {X10_3/ul} (Normal) Range: 0.83-4.51 [...] 4.2-5.4 WBC 4.5 K/mm3 (Normal) Range: 4.4-11.0 7-Sfe-233999:24 CMP GAP 5 (Normal) Range: 5-15 CO2 [...] (Normal) Range: 70-110 :36 HgA1C , Office (58685) HgA1C , Office 7.5 % (Abnormal) Range: 4.6 - 7.1 :36 Blood Glucose , Office (41485) Blood Glucose , Office 150 (Normal) :05 CALCIFIDIOL (39905) VIT D 25 Comments: PATIENT WAS FASTINGPERFORMED BY: [facility] Ajglfh1842 [facility] [id number] Vitamin D, 25-Hydroxy 75.4 ng/mL (Normal) Range: 30.0-100.0 Comments: Vitamin D deficiency has been defined by the [place] ofPremier Healthcine and an Endocrine Society practice guideline as alevel of serum 25-OH vitamin D less than 20 ng/mL (1,2).The Endocrine Society went on to further define vitamin Dinsufficiency as a level between 21 and 29 ng/mL (2).1. IOM ([place] of [place]). 2010. Dietary reference intakes for calcium and D. Real [place]: The National Academies Press.2. Mekhi MF, Dee Dee HADDAD, Fransisco HERNDON, et al. Evaluation, treatment, and prevention of vitamin D deficiency: an Endocrine Society clinical practice guideline. JCEM. 2010; 96(7):1911-30. :05 LIPID PANEL (63366) Comments: PATIENT WAS FASTINGPERFORMED BY: [facility] ImagingCapital Health System [facility])Trefex3195 [facility] [id number] Information: [id number] LDL/HDL Ratio 3.4 {ratio_units} (Abnormal) Range: 0.0-3.2 [...] 4.2-5.4 WBC 6.9 K/mm3 (Normal) Range: 4.4-11.0 88-Uxy-418194:51 CMP GAP 5 (Normal) Range: 5-15 CO2 [...] mg/dLsuggests DIABETES MELLITUS per A.D.A. criteria. :52 WXGHK-UOQAJRPAPBG-PVYXL (81590) Comments: PATIENT NOT FASTINGPERFORMED BY: [facility] [id number] AFP, Serum, Tumor Marker 1.9 ng/mL (Normal) Range: 0.0-8.3 Comments: Aric ECLIA methodology :52 PTT (Activated Partial Comments: PATIENT NOT FASTINGPERFORMED BY: [facility] [id number] Thromboplastin Time) (25889) aPTT 28 {sec} (Normal) Range: 24-33 Comments: This test has not been validated for monitoring unfractionated heparintherapy. aPTT-based therapeutic ranges for unfractionated heparintherapy have not been established. For general guidelines onHeparin monitoring, refer to the [facility] Directory of Services. 09-Qhu-98711:52 PT (Prothrobim Time) Comments: PATIENT NOT FASTINGPERFORMED BY: [facility]6370 [facility] [id number] Information: [id number] (59507) Prothrombin Time 11.1 {sec} (Normal) Range: 9.1-12.0 INR 1.1 (Normal) Range: 0.8-1.2 Comments: Reference interval is for non-anticoagulated patients. . Suggested INR therapeutic range for Vitamin K anta gonist therapy: Standard Dose (moderate intensity therapeutic range): 2.0 - 3.0 Higher intensity therapeutic range 2.5 - 3.5 33-Qhp-038778:05 Microscopic Examination Comments: PATIENT WAS FASTINGPERFORMED BY: [facility]6370 [facility] [id number] Bacteria Few (Normal) Mucus Threads Present (Normal) Epithelial Cells (non renal) 0-10 {/hpf} (Normal) Range: 0 - 10 RBC 0-3 {/hpf} (Normal) Range: 0 - 3 Comments: Effective January 10, 2014 the reference interval for RBC will be changing to: 0 - 2 /hpf. WBC 11-30 {/hpf} (Abnormal) Range: 0 - 5 02-Mey-66692:00 Vitamin D Hydroxy (78407) Comments: PATIENT WAS FASTINGPERFORMED BY: [facility] [id number] Vitamin D, 25-Hydroxy 16.4 ng/mL (Abnormal) Range: 30.0-100.0 Comments: Vitamin D deficiency has been defined by the [place] of[place]icine and an Endocrine Society practice guideline as alevel of serum 25-OH vitamin D less than 20 ng/mL (1,2).The Endocrine Society went on to further define vitamin Dinsufficiency as a level between 21 and 29 ng/mL (2).1. IOM ([place]). 2010. Dietary reference intakes for calcium and D. Real [place]: The National Academies Press.2. Mekhi MF, [place] NC, Fransisco HERNDON, et al. Evaluation, treatment, and prevention of vitamin D deficiency: an Endocrine Society clinical practice guideline. JCEM. 2010; 96(7):1911-30. TSH (39076) Comments: PATIENT WAS FASTINGPERFORMED BY: [facility] [id number] TSH 2.300 {uIU/mL} (Normal) Range: 0.450-4.500 URINALYSIS, W/ MICRO (88180) Comments: PATIENT WAS FASTINGPERFORMED BY: [facility] [id number] Microscopic Examination See below: (Normal) Nitrite, Urine Negative (Normal) Urobilinogen,Semi-Qn 0.2 mg/dL (Normal) Range: 0.0-1.9 Bilirubin Negative (Normal) Ketones Negative (Normal) Occult Blood Negative (Normal) Glucose Negative (Normal) Protein Negative (Normal) WBC Esterase 2+ (Abnormal) Appearance Clear (Normal) Urine-Color Yellow (Normal) pH 5.5 (Normal) Range: 5.0-7.5 Specific Dwight 1.020 (Normal) Range: 1.005-1.030 MICROALBUMIN: CREATININE RATIO Comments: PATIENT WAS FASTINGPERFORMED BY: [facility] [id number] (92986) AND (36344) Microalb/Creat Ratio 17.6 {mg/g_creat} (Normal) Range: 0.0-30.0 Microalbumin, Urine 23.6 ug/mL (Abnormal) Range: 0.0-17.0 Creatinine, Urine 134.3 mg/dL (Normal) Range: 15.0-328.0 METABOLIC PANEL, COMPREHENSIVE Comments: PATIENT WAS FASTINGPERFORMED BY: [facility] [id number] (96528) ALT (SGPT) 32 [iU]/L (Normal) Range: 0-32 [...] mg/dL (Abnormal) Range: 65-99 :00 LIPID PANEL (22352) Comments: PATIENT WAS FASTINGPERFORMED BY: [employer]70 [address] [facility] [id number] LDL/HDL Ratio 2.8 {ratio_units} (Normal) Range: 0.0-3.2 [...] MANUAL DIFF Comments: PATIENT WAS FASTINGPERFORMED BY: [employer]6370 [facility] [id number] Information: [id number] (48775) Immature Grans (Abs) 0.0 {x10E3/uL} (Normal) Range: [...] (Normal) Range: 3.4-10.8 :55 HgA1C , Office (95469) HgA1C , Office 6.6 % (Normal) Range: 4.6 - 7.1 :55 Blood Glucose , Office (78975) Blood Glucose , Office 169 (Normal) :22 HgA1C , Office (03488) HgA1C , Office 6.3 % (Normal) Range: 4.6 - 7.1 :22 Blood Glucose , Office (89880) Blood Glucose , Office 131 (Normal) 80-Gjy-530177:16 TSH (54698) Comments: PATIENT WAS FASTINGPERFORMED BY: LabPromed[facility]6370 [facility] [id number] TSH 2.790 {uIU/mL} (Normal) Range: 0.450-4.500 28-Xsr-128144:16 Lipid Panel (01427) Comments: PATIENT WAS FASTINGPERFORMED BY: [facility] [id number] Information: ADD [id number] AND DRAW FEE 99 6660 LDL/HDL Ratio 2.8 {ratio_units} (Normal) Range: 0.0-3.2 LDL Cholesterol Calc 130 mg/dL (Abnormal) Range: 0-99 VLDL Cholesterol Daniel 30 mg/dL (Normal) Range: 5-40 HDL Cholesterol 47 mg/dL (Normal) Comments: According to ATP-III Guidelines, HDL-C >59 mg/dL is considered anegative risk factor for CHD. Triglycerides 151 mg/dL (Abnormal) Range: 0-149 Cholesterol, Total 207 mg/dL (Abnormal) Range: 100-199 1-Kch-165166:34 Microscopic Examination Comments: PATIENT NOT FASTINGPERFORMED BY: [facility] ImagingCapital Health System [facility])Fklcnz9084 [facility] [id number] Bacteria None seen (Normal) Mucus Threads Present (Normal) Epithelial Cells (non renal) 0-10 {/hpf} (Normal) Range: 0 - 10 RBC None seen {/hpf} (Normal) Range: 0 - 3 WBC 11-30 {/hpf} (Abnormal) Range: 0 - 5 3-Cui-562608:34 TSH (67708) Comments: PATIENT NOT FASTINGPERFORMED BY: LabPromed[facility] Hospital6370 [facility] [id number] TSH 2.010 {uIU/mL} (Normal) Range: 0.450-4.500 4-Fsw-354821:34 URINALYSIS, W/ MICRO (00489) Comments: PATIENT NOT FASTINGPERFORMED BY: LabPromed[facility] Hospital6370 [facility] [id number] Microscopic Examination See below: (Normal) Nitrite, Urine Negative (Normal) Bilirubin Negative (Normal) Urobilinogen,Semi-Qn 0.2 mg/dL (Normal) Range: 0.0-1.9 Occult Blood Negative (Normal) Glucose Negative (Normal) Ketones Negative (Normal) Protein Negative (Normal) WBC Esterase Trace (Abnormal) Appearance Clear (Normal) Urine-Color Yellow (Normal) pH 5.5 (Normal) Range: 5.0-7.5 Specific Dwight 1.020 (Normal) Range: 1.005-1.030 :34 MICROALBUMIN: CREATININE RATIO Comments: PATIENT NOT FASTINGPERFORMED BY: RotaPostCapital Health System [facility])Ahjxqo7904 [facility] [id number] (91085) AND (91899) Microalb/Creat Ratio 4.2 {mg/g_creat} (Normal) Range: 0.0-30.0 Microalbumin, Urine 6.3 ug/mL (Normal) Range: 0.0-17.0 Creatinine, Urine 150.8 mg/dL (Normal) Range: 15.0-278.0 :34 METABOLIC PANEL, COMPREHENSIVE Comments: PATIENT NOT FASTINGPERFORMED BY: RotaPostCapital [facility])Mverfd7779 [facility] [id number] (99462) ALT (SGPT) 73 [iU]/L (Abnormal) Range: 0-32 [...] mg/dL (Abnormal) Range: 65-99 :34 LIPID PANEL (47602) Comments: PATIENT NOT FASTINGPERFORMED BY: [employer] Xtfiaf4348 [facility] [id number] LDL/HDL Ratio 2.5 {ratio_units} (Normal) Range: 0.0-3.2 [...] MANUAL DIFF Comments: PATIENT NOT FASTINGPERFORMED BY: [facility] ImagingCapital Health System [facility])Lgfdfk3815 [facility] [id number] Information: [id number] (07811) Immature Grans (Abs) 0.0 {x10E3/uL} (Normal) Range: [...] (Normal) Range: 3.4-10.8 :28 HgA1C , Office (16828) HgA1C , Office 7.1 % (Normal) Range: 4.6 - 7.1 :28 Blood Glucose , Office (21024) Blood Glucose , Office 144 (Normal) 47-Ecr-367291:05 HPV automatic Comments: Source.............Cervical;EndocervicalNo. of containers..01 CYTYC Thin Prep VialPATIENT NOT FASTINGPERFORMED BY: WB [facility] [address] [id number] BY: =G L (09285) [facility] Johhbisquq260 [facility] [id number] Information: [id number] HPV, high-risk Negative Comments: This high-risk HPV [...] atrophy.V 72.31 ; Routine gynecological examinationSnathanael Chan Small Piece Cutter (ASCP) :55 CBCD ANC 4.2 3/uL (Normal) [...] SED tSEDRATE 28 mm/h (Normal) Range: 0-30 65-Lkk-168369:24 Rapid Flu (48289 x 2) Influenza A Ag negative (Normal) [...] ecystokinin (0.02 ug/kg) was administered intravenously over c31-sevkzv period. The post CCK gallbladder ejection fraction vxhjcrkyungz62 minutes following Cholecystokinin administration was noted to [...] Gandhi M.D.June 24, 2012 at 9:54:02 PM [id number] Signed RB/RB If you are the referring physician and would like to consult with theradiologist who provided this inter pretation, please contact Vincent Frost at [phone]. If this radiologist is unavailable, you will bedirected to another radiologist to assist. If you are a patient with a question regarding this report, pleasecontactyour referring physician directly. Professional Interpretation Provided By: [employer], Phone , These documents contain legally protected [...] Gage Gandhi DO :09 HgA1C , Office (97564) HgA1C , Office 6.6 % (Normal) Range: 4.6 - 7.1 :09 Blood Glucose , Office (21921) Blood Glucose , Office 141 (Normal) :29 Blood Glucose , Office (98181) Blood Glucose , Office 113 (Normal) 08-Ezc-121047:29 HgA1C , Office (61504) HgA1C , Office 6.8 % (Normal) Range: 4.6 - 7.1 :44 LIPID PANEL (08088) Comments: PATIENT WAS FASTINGPERFORMED BY: LabCoCap[facility]Qqiwea3311 [facility] [id number] Information: [id number] LDL/HDL Ratio 2.2 {ratio_units} (Normal) Range: 0.0-3.2 LDL Cholesterol Calc 101 mg/dL (Abnormal) Range: 0-99 VLDL Cholesterol Daniel 40 mg/dL (Normal) Range: 5-40 HDL Cholesterol 46 mg/dL (Normal) Comments: According to ATP-III Guidelines, HDL-C >59 mg/dL is considered anegative risk factor for CHD. Triglycerides 198 mg/dL (Abnormal) Range: 0-149 Cholesterol, Total 187 mg/dL (Normal) Range: 100-199 :47 HgA1C , Office (16582) HgA1C , Office 6.3 % (Normal) Range: 4.6 - 7.1 :47 Blood Glucose , Office (76479) Blood Glucose , Office 183 (Normal) :15 [...] (Normal) Range: 0.358-3.74 :36 HgA1C , Office (25747) HgA1C , Office 5.9 % (Normal) Range: 4.6 - 7.1 :36 Blood Glucose , Office (41448) Blood Glucose , Office 127 (Normal) :00 LISANDRO CULTURE-OTHER (95826) Comments: PATIENT NOT FASTINGPERFORMED BY: [facility] Gsrvuh8435 [facility] [id number] Result 1 RRF (Normal) Comments: Routine respiratory thai Upper Respiratory Culture Final report (Normal) :14 Blood Glucose , Office (57185) Blood Glucose , Office 119 (Normal) :14 HgA1C , Office (27441) HgA1C , Office 6.1 % (Normal) Range: [...] ANEX PANEL ANTI-COTTER AB 5 AU/mL (Normal) CERTIFIED ATHLETIC TRAINER AB 29 AU/mL (Normal) :00 ANTI JO1 [...] CENTROMERE B 5 AU/mL (Normal) COMP C3 4281 179 (Normal) Range: 90-180 Comments: INFCE Result Units: mg/dL AdultPerformed at: - [facility] [address] [id number] Director: Leatha Mark MD, Phone: [phone] COMP C4 1835 32 (Normal) Range: 9-36 [...] T PROT 7.5 g/dL (Normal) Range: 6.4-8.2 3-Aug-00099:00 COMPLETE UA BACTERIA 0 SEEN {/hpf} (Normal) [...] SSB 11 AU/mL (Normal) :00 VIT D,25 23131 32.4 ng/mL (Normal) Range: 32.0-100.0 Comments: Recent studies consider the lower limit of 32.0 ng/mL to ree threshold for optimal health.Zbigniew CAMACHO. J Nutr. 2004;135(2):317-22. 73-Ybl-477355:51 DEXA BONE DENSITY STUDY () Radiology Report See Note (Normal) Comments: Exam Number: [id number] CLINICAL:The patient is a 49-year-old female who is postmenopausal.Menopause at 42 years old. No hormone replacement therapy. EXAMINATION:DUAL ENERGY X-RAY ABSORPTIOM ETRY / DEXA. TECHNIQUE:Bone Density Measurements (BMD) of lumbar spine and bilateral hipswere obtained using a BESOS scanner.. COMPARISON:July 09, 2004 FINDINGS: Lumbar Spine [...] Foundation [email or web address] Reported By: BASHIR CARLSON M.D. 05-Hto-59982:44 Protein Electro, Random Urine Comments: PERFORMED BY: [facility] [id number] M-Sukhwinder, % Not Observed % (Normal) Please note: SPRCS (Normal) Comments: Protein electrophoresis scan will follow via computer, mail, orcourier delivery. Ucgqc-8-Kophpwxm, U 15.7 % (Normal) Beta Globulin, U 17.7 % (Normal) Gamma Globulin, U 16.9 % (Normal) Albumin, U 47.5 % (Normal) Vxzsd-6-Kzelicmb, U 2.2 % (Normal) Protein,Total,Urine 23.0 mg/dL (Abnormal) Range: 0.0-15.0 :44 Protein Electro.,S Comments: PERFORMED BY: LabProm[facility]6370 [facility] [id number] Please note: SPRCS (Normal) Comments: Protein electrophoresis scan will follow via computer, mail, orcourier delivery. A/G Ratio 1.1 (Normal) Range: 0.7-2.0 Zxnxn-6-Dsmvjljn 0.9 g/dL (Normal) Range: 0.4-1.2 Beta Globulin 1.2 g/dL (Normal) Range: 0.6-1.3 Gamma Globulin 1.2 g/dL (Normal) Range: 0.5-1.6 Globulin, Total 3.6 g/dL (Normal) Range: 2.0-4.5 M-Sukhwinder Not Observed g/dL (Normal) Albumin 3.9 g/dL (Normal) Range: 3.2-5.6 Zorhg-9-Mamlhdph 0.2 g/dL (Normal) Range: 0.1-0.4 Protein, Total, Serum 7.5 g/dL (Normal) Range: 6.0-8.5 :34 MECCA-D 575112 MECCA-DIRECT SeeNote (Abnormal) Comments: Result: Positive :34 ANTI-CCP 249738 5 {units} (Normal) Range: 0-19 Comments: Negative [...] mm/h (Normal) Range: 0-30 :34 HB CORE [id number] SeeNote (Normal) Comments: Result: NegativePerformed at: [facility] LabCo[address] [id number] Director: Leatha Mark MDPerformed at: [facility]Co[address] [place] [id number] Director: Al White MD :34 HBsAg 6510 [...] of antibody present. :34 HEP C AB 014729 <0.1 (Normal) Range: 0.0-0.9 Comments: Negative: < 0.8Indeterminate 0.8 - 0.9Positive: > 0.9.In order to reduce the incidence of a false positiveresult, the CDC recommends that all s/co ratiosbetween 1.0 and 10.9 be confirmed with additionalRIBA or PCR testing. :34 RHEUMATOID FAC < 10.0 {IU/mL} (Normal) :34 VIT D,25 32147 21.3 ng/mL (Abnormal) Range: 32.0-100.0 Comments: Recent studies consider the lower limit of 32.0 ng/mL to ree threshold for optimal health.Zbigniew CAMACHO. J Nutr. 2004;135(2):317-22. :31 Anti-dsDNA Antibodies Comments: PATIENT WAS FASTINGPERFORMED BY: [facility] Fzkamv3641 [facility]omUNC [facility] [id number] Information: [id number] Anti-DNA (DS) Ab Qn <1 {IU/mL} (Normal) Range: 0-9 Comments: Negative <5Equivocal 5 - 9Positive >9 : Written Authorization WAR (Normal) Comments: PATIENT WAS FASTINGPERFORMED BY: [facility] Gwxcxi1436 [facility]-1[facility] [id number] Comments: Written Authorization Received.Authorization received from DR CHANEL VARMA 25-20-9587Vpupmu by Selma Ba 41-Tlu-778133:24 KNEE,4 OR MORE VIEWS ([place]) Radiology Report See Note (Normal) Comments: Exam Number: [id number] LEFT KNEE HISTORYPain. Four views of the [...] BASHIR CARLSON M.D. :31 HEPATIC FUNCTION PANEL (86966) Comments: PATIENT WAS FASTINGPERFORMED BY: GenSpera [facility] Joctum7940 Aleman Core Security TechnologiesAt[facility] Health [facility] [id number] Bilirubin, Direct 0.14 mg/dL (Normal) Range: 0.00-0.40 :31 SED RATE ERYTHROCYTE (07307) Comments: PATIENT WAS FASTINGPERFORMED BY: CB [facility] Taofpl4173 [facility] DivisionON24[facility] [id number] Sedimentation Rate-Westergren 15 mm/h (Normal) Range: 0-30 :31 C-REACTIVE PROTEIN (27568) Comments: PATIENT WAS FASTINGPERFORMED BY: CB [facility] Taqxeh1675 Aleman [facility] Security TechnologiesAt[facility] Health [facility] [id number] C-Reactive Protein, Quant 11.2 mg/L (Abnormal) Range: 0.0-4.9 :31 TSH (20472) Comments: PATIENT WAS FASTINGPERFORMED BY: CB [facility] Vqyalg2336 Aleman Core Security Technologiesblin [place] [id number] TSH 1.970 {uIU/mL} (Normal) Range: 0.450-4.500 :31 RHEUMATOID FACTOR-QUANT (74795) Comments: PATIENT WAS FASTINGPERFORMED BY: CB [facility] Agbzrh3700 Aleman [facility] HealthON24in [place] [id number] RA Latex Turbid. 6.8 {IU/mL} (Normal) Range: 0.0-13.9 :31 MECCA (ANTINUCLEAR ANTIBODY) Comments: PATIENT WAS FASTINGPERFORMED BY: [facility] [id number] (90513) MECCA Direct Positive (Abnormal) : CBC WITH MANUAL DIFF Comments: PATIENT WAS FASTINGPERFORMED BY: [facility] [id number] Information: [id number] (19731) Baso (Absolute) 0.1 {x10E3/uL} (Normal) Range: 0.0-0.2 [...] COMPREHENSIVE Comments: PATIENT WAS FASTINGPERFORMED BY: CHARLES LabCoLea Regional Medical CenterAzmjai0564 [facility] OvallesUNC Health [facility] [id number] (55778) Alkaline Phosphatase, S 85 [iU]/L (Normal) Range: [...] Glucose, Serum 110 mg/dL (Abnormal) Range: 65-99 57-Nbg-122341:25 Blood Glucose , Office (19921) Blood Glucose , Office 90 (Normal) 81-Fik-837424:25 HgA1C , Office (33916) HgA1C , Office 6.5 % (Normal) Range: 4.6 - 7.1 89-Jnm-903204:40 Blood Glucose , Office (03142) Blood Glucose , Office 100 (Normal) 02-Qty-569917:40 HgA1C , Office (59415) HgA1C , Office 5.7 % (Normal) Range: 4.6 - 7.1 88-Ste-185134:08 HEPATIC FUNCTION PANEL Comments: repeat Aug; PATIENT NOT FASTINGPERFORMED BY: LabKiteDeskCapital Health System [facility])Kkcjpt4689 [facility] [id number] ([id number]) Alkaline Phosphatase, S 84 [iU]/L (Normal) Range: 25-150 ALT (SGPT) 35 [iU]/L (Normal) Range: 0-40 AST (SGOT) 32 [iU]/L (Normal) Range: 0-40 Albumin, Serum 4.3 g/dL (Normal) Range: 3.5-5.5 Bilirubin, Direct 0.10 mg/dL (Normal) Range: 0.00-0.40 Bilirubin, Total 0.4 mg/dL (Normal) Range: 0.1-1.2 Protein, Total, Serum 7.4 g/dL (Normal) Range: 6.0-8.5 63-Lyw-089249:33 Creatinine Clearance Comments: PERFORMED BY: [facility][id number] [facility] [id number] Creatinine Clearance 119 mL/min (Normal) Range: 88-128 [...] Comments: Clinical Information: 04/21@630AM 04/22@630AM PERFORMED BY: [employer]70 [facility] [id number] Albumin, Serum 4.5 g/dL (Normal) Range: 3.5-5.5 Alkaline Phosphatase, S 83 [iU]/L (Normal) Range: 25-150 ALT (SGPT) 54 [iU]/L (Abnormal) Range: 0-40 AST (SGOT) 49 [iU]/L (Abnormal) Range: 0-40 Bilirubin, Direct 0.11 mg/dL (Normal) Range: 0.00-0.40 Bilirubin, Total 0.4 mg/dL (Normal) Range: 0.1-1.2 Protein, Total, Serum 7.6 g/dL (Normal) Range: 6.0-8.5 :33 Microalbumin, 24 hr Urine Comments: PERFORMED BY: [employer]70 [facility] [id number] Microalbumin, Urine 3.5 ug/mL (Normal) Range: 0.0-17.0 Microalbumin,mg/day 5.3 {mg/day} (Normal) 97-Wer-581743:08 Blood Glucose , Office (30679) Blood Glucose , Office 119 (Normal) 26-Ofh-921405:07 HgA1C , Office (71605) HgA1C , Office 6.1 % (Normal) Range: 4.6 - 7.1 :51 HEPATIC FUNCTION PANEL Comments: PATIENT NOT FASTINGClinical Information: 75G DRAWN @ 1145AM PERFORMED BY: [employer]70 [facility] [id number] (33837) Albumin, Serum 4.7 g/dL (Normal) Range: 3.5-5.5 Alkaline Phosphatase, S 89 [iU]/L (Normal) Range: 25-150 ALT (SGPT) 54 [iU]/L (Abnormal) Range: 0-40 AST (SGOT) 43 [iU]/L (Abnormal) Range: 0-40 Bilirubin, Direct 0.11 mg/dL (Normal) Range: 0.00-0.40 Bilirubin, Total 0.4 mg/dL (Normal) Range: 0.1-1.2 Protein, Total, Serum 7.8 g/dL (Normal) Range: 6.0-8.5 77-Mhc-404716:51 Glucose, PP/2 Hour (73311) Comments: PATIENT NOT FASTINGPERFORMED BY: [facility]Efrjaz1004 [facility] [id number] Glucose, Two-Hour Postprandial 173 mg/dL (Abnormal) Range: 65-139 :25 Lipid Panel (16087) Comments: PATIENT WAS FASTINGPERFORMED BY: [facility][id number] [facility] [id number] Cholesterol, Total 177 mg/dL (Normal) Range: 100-199 HDL Cholesterol 37 mg/dL (Abnormal) Comments: According to ATP-III Guidelines, HDL-C >59 mg/dL is considered anegative risk factor for CHD. LDL Cholesterol Calc 84 mg/dL (Normal) Range: 0-99 LDL/HDL Ratio 2.3 {ratio_units} (Normal) Range: 0.0-3.2 Triglycerides 280 mg/dL (Abnormal) Range: 0-149 VLDL Cholesterol Daniel 56 mg/dL (Abnormal) Range: 5-40 :25 CBC with manual diff (90401) Comments: PATIENT WAS FASTINGClinical Information: ADD [id number], [id number] PERFORMED BY: [facility][id number] [facility] [id number] Baso (Absolute) 0.0 {x10E3/uL} (Normal) Range: 0.0-0.2 [...] Panel, Comprehensive Comments: PATIENT WAS FASTINGPERFORMED BY: [facility] [id number] (89084) A/G Ratio 1.4 (Normal) Range: 1.1-2.5 Albumin, [...] 143 mmol/L (Normal) Range: 135-145 :25 CALCIFEDIOL (91968) Comments: Draw aroun Apr 06 2009; PATIENT WAS FASTINGPERFORMED BY: [facility] Eptljc5322 [facility] [id number] Vitamin D, 25-Hydroxy 50.3 ng/mL (Normal) Range: 32.0-100.0 Comments: Recent studies consider the lower limit of 32.0 ng/mL to be athreshold for optimal health.Zbigniew CAMACHO. J Nutr. 2004;135(2):317-22. C DIF TOXIN See Note (Normal) Comments: C. DIFF TOXINS A&B NEGATIVE :10 49-Jwy-302869:10 CUL STOOL/SHIG CULTURE, STOOL See Note (Normal) [...] Cyclospora, or Microspo ridia. TESTING PERFORMED AT [facility]. ORIGINAL REPORT ON FILE IN LAB CONTAINS ADDITIONAL TEST SITE INFORMATION. OVA/ PARASITES EXAM NO OVA, CYSTS, OR PARASITES FOUND. 27-Kgo-443194:10 OCCULT BLD,iFOB See Note (Normal) Comments: OCCULT BLOOD Negative 08-Thf-022423:10 WBC,STOOL See Note (Normal) Comments: FECAL WBCs NONE SEEN 72-Udb-368168:46 Celiac Disease Panel Comments: PERFORMED BY: [employer] [facility] [id number] Endomysial Antibody IgA Negative (Normal) Immunoglobulin A, [...] D, 25-Hydroxy 13.4 ng/mL Comments: PERFORMED BY: [facility] Tfpwhq8300 [facility] [id number] 11:46 (Abnormal) Range: 32.0-100.0 Comments: Recent studies consider the lower limit of 32.0 ng/mL to be athreshold for optimal health.Zbigniew CAMACHO. J Nutr. 2004;135(2):317-22. 20-Apr-2008 C difficile Toxins A+B, Negative (Normal) Comments: PATIENT NOT FASTINGPERFORMED BY: [facility] [id number] 15:30 EIA 20-Apr-2008 Occult Blood, Stool, Negative (Normal) Comments: PATIENT NOT FASTINGPERFORMED BY: [facility] [id number] 15:30 Guaiac :30 Ova + Parasite Exam Comments: PATIENT NOT FASTINGPERFORMED BY: [facility]6370 [facility] [id number] Ova + Parasite Exam Final report (Normal) Comments: These results were obtained using wet preparation(s) and trichromestained smear. This test does not include testing for Cryptosporidiumparvum, Cyclospora, or Microsporidia. Result 1 NOCP (Normal) Comments: No ova, cysts, or parasites seen. :30 Stool Culture Comments: PATIENT NOT FASTINGClinical Information: SRC: STOOL PERFORMED BY: [facility] Mizxpy[address] [id number] Campylobacter Culture Final report (Normal) E coli Shiga Toxin EIA Negative (Normal) Result 1 NCI (Normal) Comments: No Campylobacter species isolated. Result 1 NSS (Normal) Comments: No Salmonella or Shigella recovered. Salmonella/Shigella Screen Final report (Normal) :30 White Blood Cells (WBC), Comments: PATIENT NOT FASTINGPERFORMED BY: [facility] [id number] Stool Result 1 NWBC (Normal) Comments: No white blood cells seen. White Blood Cells (WBC), Final report (Normal) Comments: Reference Range: None Seen Stool 98-Yut-198738:01 CBC with manual diff (39301) Comments: PATIENT NOT FASTINGClinical Information: ADD DRAW FEE [id number] ADD J0 3378 PERFORMED BY: [facility] Y[address]yxd[address] [place] [address] [id number] Baso (Absolute) 0.0 {x10E3/uL} (Normal) Range: 0.0-0.2 [...] 11.7-15.0 WBC 8.3 {x10E3/uL} (Normal) Range: 4.0-10.5 51-Aru-176025:01 Metabolic Panel, Comprehensive Comments: PATIENT NOT FASTINGPERFORMED BY: [facility][id number] [facility] [id number] (82154) A/G Ratio 1.3 (Normal) Range: 1.1-2.5 Albumin, [...] Serum 104 mg/dL (Abnormal) Range: 65-99 If -Icelandic >60 mL/min/1.73 Range: 60-128 (Normal) Comments: Note: [...] Sodium, Serum 142 mmol/L (Normal) Range: 135-145 1-Brb-027918:30 ACUTE ABDOMEN, INC CHEST Radiology Report See Note (Normal) Comments: Exam Number: [id number] THREE VIEWS ABDOMEN CLINICAL STATEMENTGeneralized abdominal pain, [...] or abdomen. Reported By: TONO FONTANEZ M.D. 5-Rdx-374426:08 CBCD,SMEAR DIFF BAND 3 % (Normal) Range: [...] essential, benign Hypertension, essential, benign : Reviewed Scientific Aide Letter Indication: Hypertension, essential, benign Hypertension, essential, [...] Indication: Psoriatic arthropathy Psoriatic arthropathy : Reviewed Scientific Aide Letter Indication: Psoriatic arthropathy Encounter for gynecological examination without abnormal finding : *Well Female Maintenance ([facility]) Indication: Encounter for gynecological examination without abnormal [...] uncontrolled, without complications Psoriatic arthropathy : Reviewed Scientific Aide Letter Indication: Psoriatic arthropathy Hypercholesteremia : Cholesterol [...] (gastroesophageal reflux disease) Psoriatic arthropathy : Reviewed Scientific Aide Letter Indication: Psoriatic arthropathy Hypertension, essential, benign [...] uncontrolled, without complications Psoriatic arthropathy : Reviewed Scientific Aide Letter Indication: Psoriatic arthropathy GERD (gastroesophageal reflux [...] with no complications Psoriatic arthropathy : Reviewed Scientific Aide Letter Indication: Psoriatic arthropathy Diabetes mellitus type [...] with no complications Psoriatic arthropathy : Reviewed Scientific Aide Letter Indication: Psoriatic arthropathy Diabetes mellitus type [...] liver GERD (gastroesophageal reflux disease) : Reviewed Scientific Aide Letter Indication: GERD (gastroesophageal reflux disease) Hypertension, [...] Indication: Fatty liver Psoriatic arthropathy : Reviewed Scientific Aide Letter Indication: Psoriatic arthropathy Psoriatic arthropathy : [...] pain, acute, right upper quadrant : Reviewed Scientific Aide Letter Indication: Abdominal pain, acute, right upper [...] Other abnormal glucose Fatty liver : Reviewed Scientific Aide Letter Indication: Fatty liver Fatty liver : [...] Current Prescription(s) Indication: Psoriasis Psoriasis : Reviewed Scientific Aide Letter Indication: Psoriasis GERD (gastroesophageal reflux disease) : GERD Education Indication: GERD (gastroesophageal reflux disease) Other abnormal glucose : FOLLOW UP IN 4 MONTHS Indication: Other abnormal glucose Psoriasis : Reviewed Scientific Aide Letter Indication: Psoriasis Psoriasis : FOLLOW UP IN 1 MONTH Indication: Psoriasis Vitamin D deficiency, unspecified : Reviewed Lab Indication: Vitamin D deficiency, unspecified Psoriatic arthropathy : Reviewed Scientific Aide Letter Indication: Psoriatic arthropathy Psoriatic arthropathy : [...] Education Indication: Diarrhea Planned Observations HPV automatic (46037)Indication: Screening for HPV (human papillomavirus) (Renamed from Encounter for screening for human papillomavirus (HPV)) On: 61-Bfx-75970:48 Request Thin prep Pap (16311) (no STD testing)Indication: Encounter for gynecological examination without abnormal finding On: 02-Apg-99363:06 Request HGB A1C (40274)Indication: Diabetes mellitus type 2, uncontrolled, without complications On: :38 Request CALCIFEDIOL (47198)Indication: Vitamin D deficiency, unspecified On: :36 Request TSH (24228)Indication: Diabetes mellitus type 2, uncontrolled, without complications On: Request URINALYSIS, W/ MICRO (24225)Indication: Diabetes mellitus type 2, uncontrolled, without complications On: 36 Request MICROALBUMIN: CREATININE RATIO (86088) AND (99372)Indication: Diabetes mellitus type 2, uncontrolled, without complications On: :36 Request METABOLIC PANEL, COMPREHENSIVE (56787)Indication: Diabetes mellitus type 2, uncontrolled, without complications On: Request LIPOPROTEIN, BLD, BY NMR (68425)Indication: Diabetes mellitus type 2, uncontrolled, without complications On: Request CBC W/AUTO DIFF WBC (13650)Indication: Diabetes mellitus type 2, uncontrolled, without complications On: 36 Request HGB A1C (35958)Indication: Diabetes mellitus type 2, uncontrolled, without complications On: :21 Request LIPID PANEL (86640)Indication: Hypercholesteremia On: :16 Request Urine Protein Electrophoresis (UPEP) (32659)Indication: Elevated serum globulin level On: :23 Request METABOLIC PANEL, COMPREHENSIVE (94660)Indication: Hypertension, essential, benign On: :35 Request LIPID PANEL (18836)Indication: Hypertension, essential, benign On: :34 Request CBC W/AUTO DIFF WBC (33086)Indication: Hypertension, essential, benign On: :34 Request URINALYSIS, W/ MICRO (74226)Indication: Diabetes mellitus type 2, uncontrolled, without complications On: 34 Request MICROALBUMIN: CREATININE RATIO (61356) AND (40123)Indication: Diabetes mellitus type 2, uncontrolled, without complications On: :34 Request TSH (68359)Indication: Diabetes mellitus type 2, uncontrolled, without complications On: :34 Request CALCIFIDIOL (08277) VIT D 25Indication: Vitamin D deficiency, unspecified On: 32-Jqz-480676:34 Request CALCIFIDIOL (39433) VIT D 25Indication: Vitamin D deficiency, unspecified On: :30 Request TSH (71085)Indication: Diabetes mellitus type 2, uncontrolled, without complications On: : Request URINALYSIS, W/ MICRO (42856)Indication: Hypertension, essential, benign On: Request MICROALBUMIN: CREATININE RATIO (55188) AND (66911)Indication: Hypertension, essential, benign On: : Request METABOLIC PANEL, COMPREHENSIVE (08838)Indication: Hypertension, essential, benign On: Request LIPID PANEL (84941)Indication: Hypercholesteremia On: Request CBC W/AUTO DIFF WBC (90731)Indication: Hypertension, essential, benign On: Request HPV automatic (79154)Indication: Screening for HPV (human papillomavirus) (Renamed from Encounter for screening for human papillomavirus (HPV)) On: :19 Request Thin prep Pap (81437) (no STD testing)Indication: Encounter for gynecological examination without abnormal finding On: :00 Request CALCIFIDIOL (53912) VIT D 25Indication: Vitamin D deficiency, unspecified On: : Request TSH (76304)Indication: Diabetes mellitus type 2, uncontrolled, without complications On: : Request URINALYSIS, W/ MICRO (54802)Indication: Diabetes mellitus type 2, uncontrolled, without complications On: : Request MICROALBUMIN: CREATININE RATIO (01986) AND (19748)Indication: Diabetes mellitus type 2, uncontrolled, without complications On: : Request METABOLIC PANEL, COMPREHENSIVE (59977)Indication: Diabetes mellitus type 2, uncontrolled, without complications On: : Request LIPID PANEL (73528)Indication: Hypercholesteremia On: : Request CBC W/AUTO DIFF WBC (31483)Indication: Diabetes mellitus type 2, uncontrolled, without complications On: 7-Xxx-908471:00 Request Thin prep Pap (68920) (no STD testing)Indication: Well woman exam On: :21 Request YQSPO-MSUHFPWXEIT-FEIPB (47986)Indication: Fatty liver On: :39 Request PT (Prothrobim Time) (81467)Indication: Fatty liver On: :39 Request CALCIFIDIOL (73134) VIT D 25Indication: Vitamin D deficiency, unspecified On: :38 Request LIPID PANEL (59446)Indication: Hypercholesteremia On: :38 Request TSH (21417)Indication: Diabetes mellitus type II, controlled, with no complications On: :38 Request URINALYSIS, W/ MICRO (48742)Indication: Hypertension, essential, benign On: :38 Request MICROALBUMIN: CREATININE RATIO (83757) AND (03290)Indication: Hypertension, essential, benign On: :38 Request METABOLIC PANEL, COMPREHENSIVE (74793)Indication: Hypertension, essential, benign On: :38 Request CBC W/AUTO DIFF WBC (73574)Indication: Hypertension, essential, benign On: :38 Request CALCIFEDIOL (65678)Indication: Vitamin D deficiency, unspecified On: :52 Request TSH (87382)Indication: Diabetes mellitus type II, controlled, with no complications On: :52 Request URINALYSIS, W/ MICRO (21442)Indication: Hypertension, essential, benign On: :52 Request MICROALBUMIN: CREATININE RATIO (95348) AND (17750)Indication: Hypertension, essential, benign On: :52 Request METABOLIC PANEL, COMPREHENSIVE (63806)Indication: Hypertension, essential, benign On: :52 Request CBC W/AUTO DIFF WBC (91438)Indication: Hypertension, essential, benign On: :52 Request LIPID PANEL (46799)Indication: Hypercholesteremia On: :52 Request FECAL OCCULT HGB ASSAY- tubes sent home (64530)Indication: Well woman exam On: :30 Request Thin prep Pap (86766)Indication: Well woman exam On: :30 Request Sed Rate Erythrocyte (04914)Indication: Diarrhea On: 44-Yqu-645631:22 Request Metabolic Panel, Comprehensive (13041)Indication: Diarrhea On: :22 Request CBC with manual diff (60790)Indication: Diarrhea On: :22 Request Rapid Strep Test, Office (81256)Indication: Pharyngitis, acute On: :47 Request Urine Protein Electrophoresis (UPEP) (65193)Indication: Abnormal blood chemistry On: :55 Request Serum Protein Electrophoresis (SPEP) (48779)Indication: Abnormal blood chemistry On: :55 Request CALCIFIDIOL (40914) VIT D 25Indication: Vitamin D deficiency, unspecified On: :53 Request Comments: dp om 3-4 months HEPATIC FUNCTION PANEL (70913)Indication: Elevated LFTs On: 08-Vwb-825250:36 Request CREATININE CLEARANCE (91713) 24 HOURIndication: Other abnormal glucose On: 80-Jog-469319:32 Request MICROALBUMIN: CREATININE RATIO (97737) AND (85909)Indication: Other abnormal glucose On: 72-Cmc-721694:26 Request CALCIFEDIOL (04485)Indication: Diarrhea On: 83-Iee-376230:16 Request Celiac Disease Antibody Profile (64647) x3 & (54720) X2- gliadin IgA, IgG and reticulin IgA, IgG and tissue transglutaminase IgA.Indication: Diarrhea On: 76-Los-885364:08 Request LISANDRO CULTURE-STOOL (63812)Indication: Diarrhea On: 21-Kxg-503584:06 Request C-DIFFICILE, STOOL (66998)Indication: Diarrhea On: 74-Fqp-432140:06 Request LEUKOCYTE COUNT, FECAL (70170)Indication: Diarrhea On: 16-Rrt-326854:06 Request OCCULT BLOOD FECES SCREEN (87264)Indication: Diarrhea On: 48-Rny-695171: Request OVA & PARASITE DIR SMEAR (65203)Indication: Diarrhea On: 48-Gvc-241511:06 Request OVA & PARASITE DIR SMEAR (18575)Indication: Diarrhea On: 98-Gtn-112566:42 Request OCCULT BLOOD FECES SCREEN (55226)Indication: Diarrhea On: 97-Ezk-819142:42 Request LEUKOCYTE COUNT, FECAL (14349)Indication: Diarrhea On: 67-Jkz-648416:42 Request C.Difficile, Stool (88630)Indication: Diarrhea On: 81-Tei-934041:42 Request LISANDRO CULTURE-STOOL (29284)Indication: Diarrhea On: 44-Pco-740313:42 Request CBC WITH MANUAL DIFF (08085)Indication: Gastroenteritis On: 8-Xcw-673466:45 Request Planned Encounters Medical; 3 Month FU - On: 30-Jul-2018 9:00 [facility] Chanel Varma DO, DO, Kathleen Planned Procedures DEXA SCAN AXIAL SKELETON (54918)By: On: 30-Jun-2018 Intent Chanel Varma DO, DO, Kathleen SCREENING DIGITAL TOMOSYNTHESIS OF On: 30-Jun-2018 Intent BREAST (42933)By: Chanel Varma DO, DO, Kathleen Flu Vaccine (Quadrivalent) 87695Cy: On: 13-May-2018 Intent Chanel Varma DO, DO, Comments: Lot #[id number]/Site-L dltd, IMDose prefilled syringegiven by: Hector ARIAS.VIS reviewed and ABN signed Chanel ELECTROCARDIOGRAM, COMPLETE (ECG) On: 29-Apr-2018 Intent (13703)By: Chanel Varma DO Comments: NSR NO ACUTE CHG Chanel Varma DO ELECTROCARDIOGRAM, COMPLETE (ECG) On: 13-Oct-2017 Intent (01646)By: Chanel Varma DO Comments: nsr no acute chg - Chanel Varma DO SCREENING DIGITAL TOMOSYNTHESIS OF On: 25-Jun-2017 Intent BREAST (36126)By: Chanel Varma DO, DO, Kathleen Aerosol Treatment (32130)By: Francisco Javier On: 04-Jun-2017 Intent Jessa ARIAS Radiology - ChestBy: Maxime ENVIRONMENTAL TECHNICIAN, On: 06-Nov-2016 Intent Angy Aerosol Treatment (86099)By: Maxime On: 06-Nov-2016 Intent LUPESpring E Aerosol Treatment (71962)By: Maxime On: 01-Nov-2016 Intent LUPE Angy Phenergan Injection, up to 50 mg On: 11-Oct-2016 Intent (J2550)By: Spring Swartz CNP Comments: lot:[id number]: 03/27site/route: LGM/IMamt: 1mLVIS signed when applicableChelsea, [employer]KER ELECTROCARDIOGRAM, COMPLETE (ECG) On: 23-Sep-2016 Intent (01215)By: Chanel Varma DO Comments: nsr no acute chg - Chanel Varma DO Bone Density StudyBy: Felicia HERNANDEZ, On: 20-May-2016 Intent Chanel Corw DO BILATERAL MAMMOGRAMS (52121)By: On: 20-May-2016 Intent Chanel Varma DO, DO, Kathleen Toradol Injection, 30 mg On: 15-Mar-2016 Intent (J1885)By: Maxime ANDRADE Angy Comments: 1 ml given im rt hi lot [id number] exp 05/20/17 MRI CERVICAL SPINE W/O CONTRAST On: 14-Aug-2015 Intent (42249)By: Chanel Varma DO, DO, Kathleen Radiology - [...] On: 24-May-2015 Intent E Flu Vaccine (Quadrivalent) 96553Ou: On: 18-May-2015 Intent Chanel Varma DO, DO, Comments: Lot #[id number]-L dltd, IMDose prefilled syringegiven by:ROLANDO Trejo and ABN signed Chanel Ultrasound - GallbladderBy: Felicia On: 27-Mar-2015 Intent Chanel HERNANDEZ DO, Kathleen Comments: attention CBD size-- EKG (14274)By: Chanel Varma DO On: 22-Mar-2015 Intent Chanel Varma DO Comments: NSR NO ACUTE CHG MAMMOGRAM, SCREENING, BOTH BREAST On: 22-Mar-2015 Intent (73600)By: Chanel Varma DO, DO, Kathleen Anoscopy (50748)By: Felicia HERNANDEZ, On: 10-Oct-2014 Intent Chanel Crow DO Comments: se exam for findings IMMUNIZ ADMNIN, 1 VAC, SNGL/COMBO On: 19-May-2014 Intent (98835)By: Chanel Varma DO, DO, Kathleen FLU VAC, SPLIT, >3 YEARS, INTRAMUSC On: 19-May-2014 Intent (04228)By: Chanel Varma DO Comments: lot: [id number]: 02/07/15site/route: Rdel/IMamt:0.5mLVIS signed when applicableChelsea, [employer] Chanel Varma DO EKG (60258)By: Chanel Varma DO On: 19-May-2014 Intent Chanel Varma DO Comments: nsr no chg when compared to old Ultrasound - LiverBy: Felicia HERNANDEZ, On: 28-Jan-2014 Intent Chanel Crow DO Eprescribed prescriptions On: 31-Dec-2013 Intent (G8553)By: Chanel aVrma DO, DO, Kathleen OtherBy: Chanel Varma DO On: 31-Dec-2013 Intent Chanel HERNANDEZ Comments: esophagram with 13 mm tablet EKG (97601)By: Chanel Varma DO On: 14-Jun-2013 Intent Chanel Varma DO Comments: nsr no acute chg Eprescribed prescriptions On: 14-Jun-2013 Intent (G8553)By: Marissa Gomez LPN DXA, BONE DENSITY, AXIAL SKELETON On: 10-May-2013 Intent (56735)By: Marissa Gomez LPN Comments: dx post menopausal MAMMOGRAM, SCREENING, BOTH BREASTS On: 10-May-2013 Intent (08299)By: Marissa Gomez LPN Comments: dx breast screening INFUSION, NORMAL SALINE SOLUTION , On: 25-Sep-2012 Intent 1000 CC (Special Coverage Instructions Apply. See MCM: 2049) (J7030)By: Aby Douglas MD HYDRATION IV INFUSION, INIT On: 25-Sep-2012 Intent (75372)By: Aby Douglas MD hida scan with cckBy: Felicia HERNANDEZ, On: 22-Jun-2012 Intent Chanel Crow DO Eprescribed prescriptions On: 18-May-2012 Intent (G8553)By: Marissa Gomez LPN PNEUM VAC ADLT/IMUMNOSPR, SBC/INTRM On: 24-Jul-2011 Intent (16643)By: Chanel Varma DO Comments: Lot #[id number]/Site-left deltoidDose- 0.5mlgiven by: JUANA Ramos DO, Kathleen EKG (87715)By: Chanel Varma DO On: 24-Jul-2011 Intent Chanel Varma DO Comments: nsr no acute chg- IMMUNIZ ADMNIN, 1 VAC, SNGL/COMBO On: 24-Jul-2011 Intent (00229)By: Chanel Varma DO, DO, Kathleen EKG (87899)By: Chanel Varma DO On: 21-Sep-2010 Intent Chanel Varma DO Comments: nsr no acute chg TDAP VACCINE >7 IM (35710)By: On: 28-May-2010 Intent Chanel Varma DO, DO, Comments: Lot [id number] 9/12Site- R Dltd/IMDose 0.5mlgiven by: JUANA JAQUEZ IMMUNIZ ADMNIN, 1 VAC, SNGL/COMBO On: 28-May-2010 Intent (83372)By: Chanel Varma DO Comments: Lot #[id number] 4PExp- 4/11Site- L Dltd/IMDose 0.5mlgiven by: JUANA JAQUEZ DO, Kathleen FLU VAC, SPLIT, >3 YEARS, INTRAMUSC On: 28-May-2010 Intent (78441)By: Chanel Varma DO, DO, Kathleen Inhaler Demonstration (49232)By: On: 14-May-2010 Intent Spring Swartz CNP Pulse Oximetry (74002)By: Maxime On: 14-May-2010 Intent Spring ANDRADE Aerosol Treatment (61937)By: Maxime On: 14-May-2010 Intent Spring ANDRADE DXA, BONE DENSITY, AXIAL SKELETON On: 18-Jan-2010 Intent (78130)By: Chanel Varma DO, DO, Kathleen PHYSICAL THERAPY EVALUATION On: 27-Nov-2009 Intent (51148)By: Spring Swartz CNP Radiology - Knee - Left - Weight On: 27-Nov-2009 Intent BearingBy: Spring Swratz CNP Flu Vaccine, Split IM (46517)By: On: 23-May-2009 Intent Chelsea Siddiqi LPN Comments: Lot #[id number]-Site-right deltoidgiven by:CDH INFUSION, NORMAL SALINE SOLUTION , On: 28-Dec-2008 Intent 1000 CC (Special Coverage Comments: IV Therapy initiated (Romulo Gomez LPN)22G, 1 inchSite: left a/cTolerated: wellno redness or swelling, no s/s infiltrationB. JUANA Hodges Instructions Apply. See MCM: 2048) (J7030)By: Spring Swartz CNP HYDRATION IV INFUSION, INIT On: 28-Dec-2008 Intent (37287)By: Spring Swartz CNP Radiology - Abdomen SeriesBy: On: 14-Jan-2008 Intent Chanel Varma DO, DO, Kathleen INFUSION, NORMAL SALINE SOLUTION , On: 14-Jan-2008 Intent 1000 CC (Special Coverage Comments: Lot #:[id number] date:04-19 Amount given:1 liter Route: IVSite given:right anticub Given by: judit Instructions Apply. See MCM: 2048) (J7050)By: Chanel Varma DO, DO, Kathleen IV Needle placement (61318)By: On: 14-Jan-2008 Intent Chanel Varma DO, DO, Comments: # 22 placed to right anticubital space without difficulty per judit Buchanan IV Infusion ([id number])By: Felicia HERNANDEZ, On: 14-Jan-2008 Intent [facility] [...] finding Hypercholesteremia : DISCONTINUED - LIPID PANEL (41704) Indication: Hypercholesteremia Hypercholesteremia : DISCONTINUED - TSH ([id number]) Indication: Hypercholesteremia Diabetes mellitus type II, controlled, with no complications : DISCONTINUED - URINALYSIS, AUTOMATED W/ MICRO ([id number]) Indication: Diabetes mellitus type II, controlled, with no complications Diabetes mellitus type II, controlled, with no complications : DISCONTINUED - MICROALBUMIN: CREATININE RATIO ([id number]) AND ([id number]) Indication: Diabetes mellitus type II, controlled, with no complications Diabetes mellitus type II, controlled, with no complications : DISCONTINUED - METABOLIC PANEL, COMPREHENSIVE ([id number]) Indication: Diabetes mellitus type II, controlled, with no complications Diabetes mellitus type II, controlled, with no complications : DISCONTINUED - CBC WITH MANUAL DIFF ([id number]) Indication: Diabetes mellitus type II, controlled, with no complications Vitamin D deficiency, unspecified : DISCONTINUED - Vitamin D Hydroxy (46487) Indication: Vitamin D deficiency, unspecified Hypertension, essential, benign : DISCONTINUED - TSH ([id number]) Indication: Hypertension, essential, benign Hypertension, essential, benign : DISCONTINUED - URINALYSIS, AUTOMATED W/ MICRO ([id number]) Indication: Hypertension, essential, benign Hypertension, essential, benign : DISCONTINUED - MICROALBUMIN: CREATININE RATIO ([id number]) AND ([id number]) Indication: Hypertension, essential, benign Hypertension, essential, benign : DISCONTINUED - METABOLIC PANEL, COMPREHENSIVE ([id number]) Indication: Hypertension, essential, benign Hypertension, essential, benign : DISCONTINUED - CBC WITH MANUAL DIFF ([id number]) Indication: Hypertension, essential, benign Hypertension, essential, benign : DISCONTINUED - TSH ([id number]) Indication: Hypertension, essential, benign Hypertension, essential, benign : DISCONTINUED - URINALYSIS, AUTOMATED W/ MICRO (52029) Indication: Hypertension, essential, benign Hypertension, essential, benign : DISCONTINUED - MICROALBUMIN: CREATININE RATIO ([id number]) AND (35088) Indication: Hypertension, essential, benign Hypertension, essential, benign : DISCONTINUED - METABOLIC PANEL, COMPREHENSIVE ([id number]) Indication: Hypertension, essential, benign Hypertension, essential, benign : DISCONTINUED - LIPID PANEL (59672) Indication: Hypertension, essential, benign Hypertension, essential, benign : DISCONTINUED - CBC WITH MANUAL DIFF (57794) Indication: Hypertension, essential, benign Cough : How [...] up ER - Reason for hospitalization note: ([facility] er sat night for the [...] Internal Medicine End: 14-Jan-2008 9:00 [facility] merissa guarantor
--- OUTSIDE RECORDS SUMMARY | 2018-11-03 11:01 | XMS RPT_ITS | Continuity of Care Document ---
:1960 Author Organization [facility] Address [facility] [address] Phone Care Team Providers Name Role Phone Chanel Varma DO Unavailable Alexis RDZ, Joey Gallegos Unavailable Physical Therapy, [facility] Unavailable Edin Cotter MD Unavailable Dr. Herve [...] (50 MG/ML) End : 06-Nov-2016 Discontinued ERGOCALCIFEROL, 92221HLYL (Oral Capsule) 1 (one) Capsule twice weekly [...] Calles End : 28-Dec-2008 Discontinued VITAMIN D, 80967CUDV (Oral Capsule) 1 Weekly for 0 days Refills: 0 Ordered:28-Jan-2014 Marissa Gomez LPN Start : 28-Jan-2014 End : 23-Dec-2014 Discontinued Comments:This order discontinued per -Span. 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 It may contai n incorrect [...] your Primary Care Provider. Call [facility] ([phone]) or report to the closest Emergency Room. Call 911 if necessary. [phone] <Electronically signed by Edin Haddad MD> Date Edin Haddad MD Cosigner Signature (If Indicated): Date _ CC: Chanel Varma DO 22-Apr-2018 Abdomen/Pelvis W IV Cont ONLY Result: Comments: See Note; NOTES: [facility] Imaging Services [address] [place] [address] Abdomen/Pelvis W IV Cont ONLY MR#: [id number] Acct: [id number] Name: LEATHA ABAD ep #: [id number] : 1960 F 57 From: David Giang MD PCP: Chanel Varma DO Status: REG ER Study: Abdomen/Pelvis W IV Cont ONLY Date of Exam: 04/22/18 Exam# [id number] Ordering Dr: Edin Madrigal MD STUDY: CT [...] CC: Chanel Varma DO; Edin Haddad MD Geospatial Image Analyst: Signed 21-Feb-2018 Discharge Instruction Result: Comments: See Note; NOTES: [facility] Medical Records Department [address] [place] [address] Discharge Instruction 02/21/18 1944 MR#: [id number] Acct: [id number] Name: LEATHA GALARZA Rep #: [id number] : 1960 57 From: Catalino Murguia MD [...] problems, contact your Primary Care Provider. Call [facility] ([phone]) or report to the closest Emergency Room. Call 911 if necessary. 02/21/18 1751 <Electronically signed by Catalino Murguia MD> Date Catalino Murguia MD Cosigner Signature (If Indicated): Date CC: Chanel Varma DO 21-Feb-2018 Emergency Department Summary Result: Comments: See Note; NOTES: [facility] Medical Records Department [address] [place] [address] Emergency Department Summary 02/21/18 1822 MR#: [id number] Acct: [id number] Name: LEATHA ABAD Rep #: [id number] : 1960 57 From: Catalino Murguia MD [...] ly intact. Bilateral 5 out of 5 brick yard hand strength. Bilateral dorsi plantar flexion. Fingertip [...] Acute hypertension This note was generated with Modify dictation software. It may contain incorrect words, [...] your Primary Care Provider. Call [facility] ([phone]) or report to the closest Emergency Room. Call 911 if necessary. 02/21/18 7764 <Electronically signed by Catalino Murguia MD> Date Catalino Murguia MD Cosigner Signature (If Indicated): Date CC: Chanel Varma DO 21-Feb-2018 Brain/Head without Contrast Result: Comments: See Note; NOTES: [facility] Imaging Services [address] [place] [address] Brain/Head without Contrast MR#: [id number] Acct: [id number] Name: LEATHA ABAD Rep #: [id number] : 1960 F 57 From: Levi Castellon MD PCP: Chanel Varma DO Status: [facility] ER Study: Brain/Head without Contrast Date of Exam: 02/21/18 Exam# [id number] Ordering Dr: Catalino Murguia MD STUDY: CT [...] CC: Catalino Murguia MD; Chanel Varma DO Geospatial Image Analyst: Signed 15-Sep-2017 Knee 4 or More Views Result: Comments: See Note; NOTES: [facility] Imaging Services [address] [place] [address] Knee 4 or More Views MR#: [id number] Acct: [id number] Name: LEATHA ABAD Rep #: [id number] : 1960 F 56 From: Jason Ramirez PCP: Chanel Varma DO Status: REG CLI Study: Knee 4 or More Views Date of Exam: 09/15/17 Exam# [id number] Ordering Dr: Jo Hutchison MD STUDY: X-RAY [...] CC: Chanel Varma DO; Jo Hutchison MD Geospatial Image Analyst: Signed 15-Sep-2017 Knee 4 or More Views Result: Comments: See Note; NOTES: [facility] Imaging Services [address] [place] [address] Knee 4 or More Views MR#: [id number] Acct: [id number] Name: JENNIFFERLEATHA Benita Rep #: [id number] : 1960 F 56 From: Jason Ramirez PCP: Chanel Varma DO Status: REG CLI Study: Knee 4 or More Views Date of Exam: 09/15/17 Exam# [id number] Ordering Dr: Jo Hutchison MD STUDY: X-RAY [...] James at 23:23 EST , Service support [phone], CC: Chanel Varma DO; Jo Hutchison MD Geospatial Image Analyst: Signed 28-Jul-2017 SCREENING MAMM (CAD), BILAT Result: Comments: See Note; NOTES: [facility] Imaging Services [address] [place] [address] SCREENING MAMM (CAD), BILAT MR#: [id number] Acct: [id number] Name: LEATHA ABAD Rep #: [id number] : 1960 F 56 From: Jordy Masters MD PCP: Chanel Varma DO Status: REG CLI Study: SCREENING MAMM (CAD), BILAT Date of Exam: 07/28/17 Exam# [id number] Ordering Dr: Janel Varma DO MAMMOGRAPHY - [...] 2016 and April 26, 2015. FINDINGS: Breast [place] sition: There are scattered areas of fibroglandular [...] delay biopsy of a clinically suspicious abnormality. [id number] Electronically Signed: Jordy Masters MD 27/07/19 at 8:04 EST Tel [phone], Service support , CC: Chanel Varma DO Geospatial Image Analyst: Signed 06-Nov-2016 Chest PA and Lateral Result: Comments: See Note; NOTES: [facility] Imaging Services [address] [place] [address] Verdana 4d Chest PA and Lateral MR#: [id number] Acct: [id number] Name: JENNIFFERLEATHA G Rep #: [id number] : 1960 F 55 From: Jordy Masters MD PCP: Chanel Varma DO Status: REG CLI Study: Chest PA and Lateral Date of Exam: 11/06/16 Exam# [id number] Ordering Dr: Spring Swartz STUDY: X-RAY CHEST [...] Jordy Masters MD at 15:52 EDT Tel [phone], Service support [phone], Fax CC: Spring Swartz; Chanel Varma DO Geospatial Image Analyst: Signed 23-Jul-2016 Bilat Scrn Digital AND CAD Result: Comments: See Note; NOTES: [facility] Imaging Services [address] [place] [address] Verdana 4d Bilat Scrn Digital AND CAD MR#: [id number] Acct: [id number] Name: ARELIS ABAD Rep #: [id number] : 1960 F 55 From: Jordy Masters MD PCP: Chanel Varma DO Status: REG CLI Study: Bilat Scrn Digital AND CAD Date of Exam: 07/23/16 Exam# [id number] Ordering Dr: Chanel Palacios DO MAMMOGRAPHY - [...] delay biopsy of a clinically suspicious abnormality. [id number] Electronically Signed: Jordy Masters MD at 10:50 ES T Tel [phone], Service support [phone], CC: Chanel Varma DO Geospatial Image Analyst: Signed 23-Jul-2016 Dexa Bone Density Study () Result: Comments: See Note; NOTES: [facility] Imaging Services [address] [place] [address] Verdana 4d Dexa Bone Density Study () MR#: [id number] Acct: [id number] Name: BRYANT ABAD Rep #: [id number] : 1960 F 55 From: Jordy Masters MD PCP: Chanel Varma DO Status: [facility] Study: Dexa Bone Density Study () Date of Exam: 07/23/16 Exam# [id number] Ordering Dr : Chanel Varma DO STUDY: [...] Jordy Masters MD at 9:07 EST Tel [phone], Service support [phone], CC: Chanel Varma DO Geospatial Image Analyst: Signed 21-Apr-2016 Emergency Department Summary Result: Comments: See Note; NOTES: [facility] Medical Records Department [address] [place] [address] Emergency Department Summary MR#: [id number] Acct: [id number] Name: BRYANT ABAD VALENTINE Joy Rep #: [id number] : 1960 55 From: Saira Manriquez MD [...] 8 episodes of diarrhea. 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 Saira Manriquez MD T: [facility] JOB: [id number] 04/21/16 0003 <Electronically signed b florencio Manriquez MD> Date Saira Manriquez MD Cosigner Signature (If Indicated): Date CC : Chanel Varma DO Date Dictated: 04/20/162320 Date Transcribed: 04/20/162320 Geospatial Image Analyst: Signed 20-Apr-2016 Discharge Instruction Result: Comments: See Note; NOTES: [facility] Medical Records Department [address] [place] [address] [place] [address] Discharge Instruction 04/20/162316 MR#: [id number] Acct: [id number] Name: LEATHA CONTEH Rep #: [id number] : 1960 55 From: Saira Manriquez MD [...] problems, contact your doctor. Call [facility] ([phone]) or report to the closest Emergency Room. Call [phone] if necessary. 04/20/162317 <Electronically signed by Saira Manriquez MD> Date Saira Manriquez MD Cosigner Signature (If Indicat ed): Date CC: Chanel Varma DO 07-Feb-2016 PT D/C Summary (1) Result: Comments: See Note; NOTES: [facility] [address] [place] [address] Fax REHABILITATION SE NATASHA DISCHARGE SUMMARY MR#: [id number] Acct: [id number] Name: LEATHA ABAD Rep #: [id number] : 1960 55 From: Marina Damico PT, Cert. MDT Referring Dr.: Chanel Varma DO Statu s: REG RCR Insurance: [facility] - PT D/C Summary It has been [...] BETTER. 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 Thank you for the referral of this patient. Sincerely, Marina Damico &#6 0;Electronically signed by Cert. KENDELL Arzola PTT> 02/07/16 1031 CC: Chanel aVrma DO DOMONIQUE Signed 12-Dec-2015 Inital Evaluation (1) - PT Result: Comments: See Note; NOTES: [facility]. [address] [place] [address] Fax REHABILITATION SE RVICES INITIAL EVALUATION MR#: [id number] Acct: [id number] Name: LEATHA ABAD Rep #: [id number] : 1960 55 From: Cert. KENDELL Arzola PTT Referring Dr.: Chanel Varma DO Stat us: REG [facility] Insurance: [facility] Date: Patient's Visit Information LEATHA ABAD is [...] [address] EDIN COTTER AT [facility]. 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 SHE REPORTS SHE REGAINED MOST OF HER [...] WITH ERP, LEFT 80 DEG. 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 JOSE LUIS ELBOW, WRIST, FOREARM A ND HAND AROM IS SYMMETRICAL BUT ARTHRITIC AND THERE IS ERP WITH LEFT ELBOW EXTENSION. MMT NOT PERFORMED DUE TO SHOULDER AROM AND HYDRAULIC MODELING ENGINEER TESTING PROVOKING PAIN. ANTERIOR CERVICAL INCISION LOOKS [...] to be FAXED BACK to us at [phone] for Medicare purposes. Please let me know if there are questions or concerns regarding this plan of care. Physician Signature: Date: <Electronically signed by Marina Damico PT, Cert. MDT> 12/12/15 1113 CC: Chanel Varma DO DOMONIQUE Signed For Medicare only, by signing this I certify the plan of care. Physicians Signature Date 06-Nov-2015 EKG (32052) Comments: nsr no acute chg Result: [MEASUREMENTS ANALYSIS] Date of Test: 11/06/2015 09:32:00; Heart Rate: 80; AR Interval: 190; QRS: 88; QT Interval: 354; Corrected QT Interval (QTc): 389; P Wave [place]: 37; QRS Wave [place]: -17; T Wave [place] : 37; Blood Pressure: 122/80 [ECG DIAGNOSTIC STATEMENTS] Date of Test: 11/06/2015 09:32:00; Summary: Sinus Rhythm WITHIN NORMAL LIMITS 18-Aug-2015 Spine Cervical (Routine) Result: Comments: See Note; NOTES: [facility] Imaging Services [address] [place] [address] Verdana 4d Spine Cervical (Routine) MR#: [id number] Acct: [id number] Name: LEATHA ARNETT Rep #: [id number] : 1960 F 54 From: Anand Zepeda MD PCP: Chanel Varma DO Status: REG CLI Study: Spine Cervical (Routine) Date of Exam: 08/18/15 Exam# [id number] Orderi ng Dr: Chanel Varma DO STUDY: [...] lordosis. Normal vertebral bodies and posterior osseous [place] ents. C2-3: Normal endplates. Normal disc height, [...] at 18:12 EST Tel , Service support [phone], CC: Chanel Varma DO Geospatial Image Analyst: Signed 07-Aug-2015 Cerv Spine 2 or 3 Views Result: Comments: See Note; NOTES: [facility] Imaging Services [address] [place] [address] Verda 4d Cerv Spine 2 or 3 Views MR#: [id number] Acct: [id number] Name: LEATHA BEE Rep #: [id number] : 1960 F 54 From: Lucho Villatoro MD PCP: Chanel Varma DO Status: REG CLI Study: Cerv Spine 2 or 3 Views Date of Exam: 08/07/15 Exam# [id number] Ordering Dr : Chanel Varma DO STUDY: [...] at 13:38 EST Tel , Service support [phone], RAD/Cerv Spine 2 or 3 Vi ews IMPRESSION: Normal x-ray examination of the visualized cervical spine. Electronically Signed: Terry Villatoro MD at 13:38 EST Tel , Service support [phone], CC: Chanel Varma DO Geospatial Image Analyst: Signed 25-Jul-2015 NCS and/or EMG Patient Result: Comments: See Note; NOTES: [facility] Pulmonary Services/Neurology [address] [place] [address] NCS and/or EMG Patient MR#: [id number] Acct: [id number] Name: LEATHA CARMONA Rep #: [id number] : 1960 54 From: Ledy Cedillo MD [...] me. Ledy Cedillo MD T: NTS JOB: [id number] 07/25/15 0915 <Electronically signed by Ledy Cedillo MD> Date Ledy Cedillo MD CC: Spring Swartz; Ledy Cedillo; Chanel Varma DO Date Dictated: 07/19/151334 Date Transcribed: 07/19/151334 Geospatial Image Analyst: Signed 26-Jun-2015 PT D/C Summary Result: Comments: See Note; NOTES: [facility] [address] [place] [address]. [address] [place], [place] [address] Fax REHABILITATION RVICES DISCHARGE SUMMARY MR#: [id number] Acct: [id number] Name: LEATHA ABAD Rep #: [id number] : 1960 54 From: Marina Damico Referring [...] arnold feel free to call me at [phone]. Thank you for the referral of this patient. Sincerely, Marina Damico <Electronically signed by Marina Damico > 06/26/15 2010 CC: Spring Swartz; Chanel Varma DO DOMONIQUE Signed 07-Jun-2015 Inital Evaluation - PT Result: Comments: See Note; NOTES: [facility] [address] [place] [address]. [address] [place] [address] Fax REHABILITATION SE RVICES INITIAL EVALUATION MR#: [id number] Acct: [id number] Name: LEATHA ABAD Rep #: [id number] : 1960 54 From: Marina Damico Referring DrLottie: Spring Swartz Status: REG R Insurance : [facility] Date: Patient's Visit Information LEATHA ABAD is [...] E HELPING. PATIENT DENIES NECK PAIN. 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 [...] FAXED BA MARY ANN to us at [phone] for Medicare purposes. Please let me know if there are questions or concerns regarding this plan of care. Physician Signature: ____Date: <Electronically signed by Marina Damico > 06/07/15 1615 CC: Spring Swartz; Chanel Varma DO DOMONIQUE Signed For Medicare only, by signing this I certify the plan of care. Physicians Signature Date 24-May-2015 Forearm 2 Views Result: Comments: See Note; NOTES: [facility] Imaging Services [address] [place] [address] Radiology Report MR#: [id number] Acct: [id number] Name: LEATHA ABAD p #: [id number] : 1960 F 54 From: Lucho Morales MD PCP: Chanel Varma DO Status: REG CLI Study: Forearm 2 Views Date of Exam: 05/24/15 Exam# [id number] Ordering Dr: Spring Swartz STUDY: X-RAY - [...] MD at 16:22 EDT , Service support [phone], RAD/Forearm 2 Views IMPRESSION: Normal x-ray examination of the radius and ulna. Electronically Signed: Terry Morales MD at 16:22 EDT , Service support [phone], CC: Spring Swartz; Chanel Varma DO Geospatial Image Analyst: Signed 24-May-2015 Shoulder min 2 Views Result: Comments: See Note; NOTES: [facility] Imaging Services [address] [place] [address] Radiology Report MR#: [id number] Acct: [id number] Name: LEATHA ABAD p #: [id number] : 1960 F 54 From: Lucho Morales MD PCP: Chanel Varma DO Status: REG CLI Study: Shoulder min 2 Views Date of Exam: 05/24/15 Exam# [id number] Ordering Dr: Spring Swartz UDY: X-RAY - [...] MD at 16:24 EDT , Service support [phone], RAD/Shoulder min 2 Views IMPRESSION: Findings of calcific tendinitis of the rotator cuff. Electronically Signed: Terry Morales MD at 16:24 EDT , Ser vice support [phone], CC: Spring Swartz; Chanel Varma DO Geospatial Image Analyst: Signed 26-Apr-2015 Bilat Scrn Digital AND CAD Result: Comments: See Note; NOTES: [facility] Imaging Services [address] [place] [address] Breast Imaging Report MR#: [id number] Acct: [id number] Name: LEATHA ABAD p #: [id number] : 1960 F 54 From: Jordy Masters MD PCP: Chanel Varma DO Status: REG CLI Study: Bilat Scrn Digital AND CAD Date of Exam: 04/26/15 Exam# [id number] Ordering Dr: Chanel Varma DO MAMMOGRAPHY - [...] Jordy Masters MD at 9:11 EDT Tel [phone], Service support [phone], CC: Chanel Varma DO Geospatial Image Analyst: Signed 07-Apr-2015 Gallbladder Result: Comments: See Note; NOTES: [facility] Imaging Services [address] [place] [address] Ultrasound Report MR#: [id number] Acct: [id number] Name: LEATHA ABAD Rep #: [id number] : 1960 F 54 From: Jordy Masters MD PCP: Chanel Varma DO Status: REG CLI Study: Gallbladder Date of Exam: 04/07/15 Exam# [id number] Ordering Dr: Chanel Varma DO UDY: ABDOMINAL [...] Jordy Masters MD at 13:10 EDT Tel [phone], Service support [phone], CC: Chanel Varma DO Geospatial Image Analyst: Signed 01-Mar-2015 Emergency Department Summary Result: Comments: See Note; NOTES: [facility] Medical Records Department [address] [place] [address] Emergency Department Summary MR#: [id number] Acct: [id number] Name: LEATHA CARMONA Rep #: [id number] : 1960 54 From: Joey Ponce MD [...] C: Chanel Varma DO T: NTS JOB: [id number] 02/09 <Electronically signed by Joey Ponce MD> Date Joey Ponce MD CC: Chanel Varma DO Date Dictated: 02/28/15754 Date Transcribed: 02/28/15754 Geospatial Image Analyst: Signed 28-Feb-2015 Discharge Instruction Result: Comments: See Note; NOTES: [facility] Medical Records Department [address] [place] [address] Discharge Instruction 02/28/15 0744 MR#: [id number] Acct: [id number] Name: LEATHA ABAD Rep #: [id number] : 1960 54 From: Joey Ponce MD [...] unexpected problems, contact y our doctor. Call [facility] ([phone]) or report to the closest Emergency Room. Call 911 if necessary. 02/28/15 0745 <Electronically signed by Joey Ponce MD> Date ____ Joey Ponce MD Cosigner Signature (If Indicated): Date CC: Chanel Varma DO 07-Jan-2014 Esophagus Only Result: Comments: See Note; NOTES: [facility] Imaging Services [address] [place] [address] Radiology Report MR#: [id number] Acct: [id number] Name: LEATHA ABAD Rep #: [id number] : 1960 F 53 From: Jordy Masters MD PCP: Chanel Varma DO Status: REG CLI Study: Esophagus Only Date of Exam: 01/07/14 Exam# [id number] Ordering Dr: Chanel Varma TUDY: X-RAY - [...] Jordy Masters MD at 10:01 EDT Tel [phone], Service support [phone], CC: Chanel Varma DO; Stevan Ngo MD Geospatial Image Analyst: Signed Immunization Name Dates Details Influenza (3 years and up) on: 23-May-2009 Comments: Lot #[id number]-right deltoidgiven by:[facility] Pneumococcal (2 years and up) on: 02-Aug-2016 Comments: Site: Deltoid (Left) Lot #: [id number] Family History Unknown Family Member Name Dates [...] Status: Active 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 Prediabetes: 5.7 - 6.4 Diabetes: >6.4 Glycemic control for adults with diabetes: <7.0 :00 CBC W/Diff, Automated Comments: [facility] [address] [place], [place], [address] Absolute Lymph 2.33 {X10_3/ul} (Normal) Range: 0.83-4.51 [...] 4.2-5.4 WBC 9.3 K/mm3 (Normal) Range: 4.4-11.0 34-Qer-76819:00 Comprehensive Metabolic Profil Comments: [facility] [address] [place], [address] GAP 10 (Normal) Range: 5-15 CO2 24.0 [...] A.D.A. criteria.Please note revised GLUCOSE reference range ljrlglfow30/02/2018. 0-Ggv-269297:58 CBC W/Diff, Automated Comments: DR. HUTCHISON ORDERED CMP CBCDKSHIRA SHEPHERD ORDERED [facility] [address] [place], [address] Absolute Lymph 2.63 {X10_3/ul} (Normal) Range: 0.83-4.51 [...] 4.2-5.4 WBC 6.5 K/mm3 (Normal) Range: 4.4-11.0 8-Tcp-605002:58 Comprehensive Metabolic Profil Comments: DR. HUTCHISON ORDERED CMP CBCDKSHIRA SHEPHERD ORDERED CBCD [facility] [address] [place], [place], [id number] GAP 9 (Normal) Range: 5-15 CO2 27.0 [...] A.D.A. criteria.Please note revised GLUCOSE reference range ijufbjlmw48/02/2018. 5-Uuz-961415:58 Prothrombin Time w/INR Comments: DR. HUTCHISON ORDERED CMP CBCDKSHIRA SHEPHERD ORDERED [facility] [address] [place], [place], [address] INR 1.0 (Normal) PROTIME 13.5 s (Normal) Range: 11.7-14.9 79-Lyy-783025:21 PT (PROTHROMBIN TIME) (49162) Comments: PATIENT NOT FASTINGPERFORMED BY: [facility]mvmff6196 [facility] [id number] INR 1.0 (Normal) Range: 0.8-1.2 Comments: Reference interval is for non-anticoagulated patients. . Suggested INR therapeutic range for Vitamin K anta gonist therapy: Standard Dose (moderate intensity therapeutic range): 2.0 - 3.0 Higher intensity therapeutic range 2.5 - 3.5 Prothrombin Time 10.5 {sec} (Normal) Range: 9.1-12.0 14-Kwe-796719:21 CBC & PLATELETS (AUTO) Comments: PATIENT NOT FASTINGPERFORMED BY: [facility] [address] [place] [id number] ([address]) Platelets 288 {x10E3/uL} (Normal) Range: 150-379 RDW 13.6 % (Normal) Range: 12.3-15.4 MCHC 33.1 g/dL (Normal) Range: 31.5-35.7 MCH 30.0 pg (Normal) Range: 26.6-33.0 MCV 91 fL (Normal) Range: 79-97 Hematocrit 40.5 % (Normal) Range: 34.0-46.6 Hemoglobin 13.4 g/dL (Normal) Range: 11.1-15.9 RBC 4.47 {x10E6/uL} (Normal) Range: 3.77-5.28 WBC 6.7 {x10E3/uL} (Normal) Range: 3.4-10.8 32-Fyt-870028:35 Basic Metabolic Profile (BMP) Comments: [facility] [address] [place], [address] GAP 9 (Normal) Range: 5-15 CO2 29.0 [...] A.D.A. criteria.Please note revised GLUCOSE reference range aeutnspyf81/02/2018. 04-Iwz-326328:11 Bedside Glucose Comments: [facility] [address] [place] [address] BEDSIDE GLU 203 mg/dL (Abnormal) Range: 70-110 Comments: MANAGEMENT OF PATIENT CARE PER NURSING PROTOCOL 04-Mmj-792183:23 CBC W/Diff, Automated Comments: [facility] [address] [place], [id number] Absolute Lymph 2.83 {X10_3/ul} (Normal) Range: 0.83-4.51 [...] 4.2-5.4 WBC 6.9 K/mm3 (Normal) Range: 4.4-11.0 70-Kad-786221:23 Comprehensive Metabolic Profil Comments: [facility] [address] [place], [place], [address] GAP 9 (Normal) Range: 5-15 CO2 29.0 [...] A.D.A. criteria.Please note revised GLUCOSE reference range zbfmwymsw90/02/2018. 33-Xxc-780820:01 HEPATIC FUNCTION PANEL Comments: PATIENT WAS FASTINGPERFORMED BY: LabCoBayshore Community HospitalSavijt3572 [facility] [id number] (73964) ALT (SGPT) 22 [iU]/L (Normal) Range: 0-32 AST (SGOT) 27 [iU]/L (Normal) Range: 0-40 Alkaline Phosphatase 58 [iU]/L (Normal) Range: 39-117 Bilirubin, Direct 0.12 mg/dL (Normal) Range: 0.00-0.40 Bilirubin, Total 0.5 mg/dL (Normal) Range: 0.0-1.2 Albumin 4.4 g/dL (Normal) Range: 3.5-5.5 Protein, Total 7.6 g/dL (Normal) Range: 6.0-8.5 75-Mqw-197344:01 Lipid Panel (16888) Comments: PATIENT WAS FASTINGPERFORMED BY: [facility] [id number] LDL/HDL Ratio 2.9 {ratio} (Normal) Range: 0.0-3.2 Comments: LDL/HDL Ratio Men Women 1/2 Avg.Risk 1.0 1.5 Av g.Risk 3.6 3.2 2X Avg.Risk 6.2 5.0 3X Avg.Risk 8.0 6.1 LDL Cholesterol Calc 116 mg/dL (Abnormal) Range: 0-99 VLDL Cholesterol Daniel 44 mg/dL (Abnormal) Range: 5-40 HDL Cholesterol 40 mg/dL (Normal) Triglycerides 220 mg/dL (Abnormal) Range: 0-149 Cholesterol, Total 200 mg/dL (Abnormal) Range: 100-199 9-Rbt-622076:04 Microscopic Examination Comments: PATIENT WAS FASTINGPERFORMED BY: imgfave70 [facility] [id number] Bacteria Few (Normal) Mucus Threads Present (Normal) Epithelial Cells (non renal) 0-10 {/hpf} (Normal) Range: 0 - 10 RBC 0-2 {/hpf} (Normal) Range: 0 - 2 WBC 6-10 {/hpf} (Abnormal) Range: 0 - 5 3-Roh-182514:04 Protein Electro, Random Urine Comments: PATIENT WAS FASTINGPERFORMED BY: [facility] [employer] [facility]6370 [facility] [id number] Please note: SPRCS (Normal) Comments: Protein electrophoresis scan will follow via computer, mail, orcourier delivery. M-Sukhwinder, % Comment: % (Normal) Comments: ASYMMETRICAL GAMMA Gamma Globulin, U 17.8 % (Normal) Beta Globulin, U 19.6 % (Normal) Mqckp-1-Apkpxtav, U 16.1 % (Normal) Fpuxg-1-Bgaxietj, U 5.4 % (Normal) Albumin, U 41.1 % (Normal) Protein,Total,Urine 9.5 mg/dL (Normal) 66-Oon-426854:00 HGB A1C (24527) Comments: do in 3months; PATIENT WAS FASTINGPERFORMED BY: [place] Ukutsp8114 [facility] [id number] Hemoglobin A1c 7.8 % (Abnormal) Range: 4.8-5.6 Comments: . Pre-diabetes: 5.7 - 6.4 Diabetes: >6.4 Glycemic control for adults with diabetes: <7.0 :04 HGB A1C (75912) Comments: PATIENT WAS FASTINGPERFORMED BY: [facility]aloopBayshore Community HospitalPyowfn4439 [facility] [id number] Hemoglobin A1c 7.1 % (Abnormal) Range: 4.8-5.6 Comments: . Pre-diabetes: 5.7 - 6.4 Diabetes: >6.4 Glycemic control for adults with diabetes: <7.0 0-Kyl-584853:04 TLFBT-QUHUUKBDGQT-WCFBV (94919) Comments: PATIENT WAS FASTINGPERFORMED BY: [facility]aloopBayshore Community HospitalIjipnd8775 [facility] [id number] AFP, Serum, Tumor Marker 2.1 ng/mL (Normal) Range: 0.0-8.3 Comments: Aric ECLIA methodology :04 TSH (53682) Comments: PATIENT WAS FASTINGPERFORMED BY: [place] Vnfrmp8215 [facility] [id number] TSH 3.660 {uIU/mL} (Normal) Range: 0.450-4.500 2-Ovr-339559:04 URINALYSIS, W/ MICRO (19774) Comments: PATIENT WAS FASTINGPERFORMED BY: LabHypecal Bjrgks5835 [facility] [id number] Microscopic Examination See below: (Normal) Comments: Microscopic was indicated and was performed. Nitrite, Urine Negative (Normal) Urobilinogen,Semi-Qn 0.2 mg/dL (Normal) Range: 0.2-1.0 Bilirubin Negative (Normal) Occult Blood Negative (Normal) Ketones Negative (Normal) Glucose Negative (Normal) Protein Negative (Normal) WBC Esterase 1+ (Abnormal) Appearance Clear (Normal) Urine-Color Yellow (Normal) pH 5.0 (Normal) Range: 5.0-7.5 Specific [place] 1.020 (Normal) Range: 1.005-1.030 4-Llo-631831:04 MICROALBUMIN: CREATININE RATIO Comments: PATIENT WAS FASTINGPERFORMED BY: [employer] [facility] [id number] (44559) AND (25004) Alb/Creat Ratio 8.5 {mg/g_creat} (Normal) Range: 0.0-30.0 Albumin, Urine 11.4 ug/mL (Normal) Creatinine, Urine 134.1 mg/dL (Normal) 3-Bmr-191228:04 LIPID PANEL (51031) Comments: PATIENT WAS FASTINGPERFORMED BY: SogouBayshore Community HospitalHyrjoq2571 [facility] [id number] LDL/HDL Ratio 2.6 {ratio_units} (Normal) Range: 0.0-3.2 Comments: LDL/HDL Ratio Men Women 1/2 Avg.Risk 1.0 1.5 Av g.Risk 3.6 3.2 2X Avg.Risk 6.2 5.0 3X Avg.Risk 8.0 6.1 LDL Cholesterol Calc 135 mg/dL (Abnormal) Range: 0-99 VLDL Cholesterol Daniel 25 mg/dL (Normal) Range: 5-40 HDL Cholesterol 51 mg/dL (Normal) Triglycerides 127 mg/dL (Normal) Range: 0-149 Cholesterol, Total 211 mg/dL (Abnormal) Range: 100-199 6-Ksh-398108:04 CALCIFEDIOL (64721) Comments: PATIENT WAS FASTINGPERFORMED BY: SogouBayshore Community HospitalIzdcpq7978 [facility] [id number] Vitamin D, 25-Hydroxy 56.1 ng/mL (Normal) Range: 30.0-100.0 Comments: Vitamin D deficiency has been defined by the [place] ofMedicine and an Endocrine Society practice guideline as alevel of serum 25-OH vitamin D less than 20 ng/mL (1,2).The Endocrine Society went on to further define vitamin Dinsufficiency as a level between 21 and 29 ng/mL (2).1. IOM ([place] of Medicine). 2010. Dietary reference intakes for calcium and D. Real [place]: The National Academies Press.2. Mekhi MF, Dee Dee HADDAD, Fransisco HERNDON, et al. Evaluation, treatment, and prevention of vitamin D deficiency: an Endocrine Society clinical practice guideline. JCEM. 2010; 96(7):1911-30. 7-Yls-042430:04 Serum Protein Electrophoresis Comments: PATIENT WAS FASTINGPERFORMED BY: LabFormerly [facility]6370 [facility] [id number] ([facility]) (40991) Please note: SPRCS (Normal) Comments: Protein electrophoresis scan will follow via computer, mail, orcourier delivery. A/G Ratio 0.9 (Normal) Range: 0.7-1.7 Globulin, Total 3.9 g/dL (Normal) Range: 2.2-3.9 M-Sukhwinder Not Observed g/dL (Normal) Gamma Globulin 1.3 g/dL (Normal) Range: 0.4-1.8 Beta Globulin 1.3 g/dL (Normal) Range: 0.7-1.3 Mznge-8-Zrvwkvsj 1.1 g/dL (Abnormal) Range: 0.4-1.0 Zeyfb-2-Usnbpgjc 0.3 g/dL (Normal) Range: 0.0-0.4 Albumin 3.4 g/dL (Normal) Range: 2.9-4.4 Protein, Total, Serum 7.3 g/dL (Normal) Range: 6.0-8.5 70-Lsp-725087:43 Crystals, Body Fluid Comments: [facility] [address] [place], [address] PATH REV Reviewed (Normal) Comments: Negative for malignant cells.Acute inflammation.A few crystals are oted (mixture of nondescript and calciumpyrophosphate).Clinical correlation necessary.Michelet Bills M.D. 09/26/17 AMENDED REPORT 1011 PATH REV previously reported as: Will follow SOURCE/BF SYNOVIAL (Normal) CRYSTALS/BF CALCIUM PYROPHOS (Normal) 55-Kvb-785949:43 Culture, Body Fluid Comments: [facility] [address]jb[address] [place], [place], [id number] CUBF See Note (Normal) Comments: List Antibiotics Last 48 Hours? UNKList Antibiotics to be Started? UNKComments: RIGHT KNEEGram StainCentrifuged Specimen? Culture performed on centrifuged specimen Gram Stain 3+ White Blood Cells No organisms seen Body Fluid CultNO GROWTH IN 14 DAYS Cult, AnaerobicNo growth in 5 days. 38-Oqf-116396:43 Synovial Fluid RBC, WBC AND Comments: [facility] [address] [place], [address] Diff PATH COM/SYFL May follow [...] Yellow (Normal) SYNOVIAL SOURCE R KNEE (Normal) 3-Eqk-796937:51 CBC W/Diff, Automated Comments: [facility] [address]wg[address] [place], [address] Absolute Lymph 2.59 {X10_3/ul} (Normal) [...] 4.2-5.4 WBC 10.5 K/mm3 (Normal) Range: 4.4-11.0 8-Ttn-739149:51 Comprehensive Metabolic Profil Comments: [facility] [address]mwh[address] [place], [place], [address] GAP 9 (Normal) Range: 5-15 CO2 26.0 mmol/L (Normal) Range: 21.0-32.0 CL 100 mmol/L (Normal) Range: 98-107 K 4.0 mmol/L (Normal) Range: 3.5-5.1 NA 135 mmol/L (Abnormal) Range: 136-145 T BILI 0.30 mg/dL (Normal) Range: 0.20-1.00 ALT 16 U/L (Normal) Range: 13-56 Comments: Please note revised ALT reference range gkroxxnvg26/28/2018. ALK P 83 U/L (Normal) Range: 45-117 [...] 126 mg/dLsuggests DIABETES MELLITUS per A.D.A. criteria. 23-Fiq-504141:41 CBC W/Diff, Automated Comments: [facility] [address] [place], [place], [id number] Absolute Lymph 2.10 {X10_3/ul} (Normal) Range: 0.83-4.51 [...] 4.2-5.4 WBC 9.4 K/mm3 (Normal) Range: 4.4-11.0 61-Ara-738856:41 Comprehensive Metabolic Profil Comments: [facility] [address]xxac[address] [place], [address] GAP 10 (Normal) Range: 5-15 CO2 27.0 [...] 126 mg/dLsuggests DIABETES MELLITUS per A.D.A. criteria. 53-Udo-833055:10 CBC W/Diff, Automated Comments: CMP,CBCD FOR DR HUTCHISON WELL [facility] [address]apgv[address] [place], [place], [id number] Absolute Lymph 2.93 {X10_3/ul} (Normal) Range: 0.83-4.51 [...] 4.2-5.4 WBC 8.5 K/mm3 (Normal) Range: 4.4-11.0 09-Jrk-716624:10 Comprehensive Metabolic Profil Comments: CMP,CBCD FOR DR HUTCHISON WELL [facility] [address]zcvvdbu[address] [place], [place], [phone] GAP 9 (Normal) Range: 5-15 CO2 26.0 [...] 126 mg/dLsuggests DIABETES MELLITUS per A.D.A. criteria. 66-Gmh-586255:10 Lipid Profile Comments: CMP,CBCD FOR DR HUTCHISON WELL [facility] [address]pmnxswn[address] [place], [place], [phone] VLDL 36 mg/dL (Normal) Range: 5-40 LDL [...] 200-240 mg/dL Borderline >240 mg/dL High Risk 41-Pua-588871:10 Microalb:Creat Ratio,Random UR Comments: CMP,CBCD FOR DR HUTCHISON WELL [facility] Ufkpaduiyr[address] [place], [address] MALB:CREAT 13.6 {mg/g_CRE} (Normal) MICROALBUMIN,UR 16.9 mg/L (Normal) UR CREAT 124.00 mg/dL (Normal) 70-Bjb-232719:10 Thyroid Stim Hormone (TSH) Comments: CMP,CBCD FOR DR HUTCHISON WE[facility] [address]oiisxygrj[address] [place], [address] TSH 1.11 {uIU/mL} (Normal) Range: 0.358-3.74 32-Kqp-378661:10 Urinalysis, Complete Comments: CMP,CBCD FOR DR HUTCHISON WELL Sakshi was Urine Obtained? CLEAN [facility] [address]ztkldbd[address] [place], [address] MUCUS, URINE 0 SEEN {/hpf} [...] CLARITY Sl. Cloudy (Normal) COLOR Yellow (Normal) 91-Oet-606523:10 Vitamin D,25 Hydroxy Comments: CMP,CBCD FOR DR HUTCHISON WELL [facility] [address]dtmiwjbp[address] [place], [place], [phone] Vitamin D 25-OH 108.1 ng/mL (Normal) Comments: [...] is nointerference with Vitamin D test results. 26-Smg-587604:59 HgA1C , Office (30507) HgA1C , Office 7.3 % (Abnormal) Range: 4.6 - 7.1 21-Hvi-400378:59 Blood Glucose , Office (57938) Blood Glucose , Office 192 (Normal) 56-Joe-759784:16 Rapid Flu (64477 x 2) Influenza A Ag neg a and b (Normal) 9-Dmv-590989:14 URINE LISANDRO CULTURE-IDENTIFICATN Comments: PATIENT NOT FASTINGPERFORMED BY: LabCoBayshore Community HospitalIrxyvq4738 [facility] [id number] Information: SRC:ANDREY (71429) Result 1 MUG (Normal) Comments: Mixed urogenital flora10,000-25,000 colony forming units per mL Urine Final report (Normal) Culture,Comprehensive 9-Tvg-636621:00 Urinalysis, Office (69889) UA - LEUKOCYTE ESTERASE Trace (Normal) UA - NITRITE Negative (Normal) URINE UROBILINGN NHAN TIMED Normal mg/dL (Normal) UA - PROTEIN Negative mg/dL (Normal) UA - PH 5 (Abnormal) UA - BLOOD Negative (Normal) UA - SPECIFIC GRAVITY 1.025 (Normal) UA - KETONES Negative mg/dL (Normal) UA - BILIRUBIN Small (Normal) UA - GLUCOSE Negative (Normal) 3-Tje-664878:59 Blood Glucose , Office (08118) Blood Glucose , Office 117 (Normal) 2-Rfj-980213:06 Rapid Flu (50369 x 2) Influenza A Ag neg (Normal) :04 HgA1C , Office (55605) HgA1C , Office 6.9 % (Normal) Range: 4.6 - 7.1 :04 Blood Glucose , Office (05324) Blood Glucose , Office 153 (Normal) 6-Fyc-523122:11 CBC W/Diff, Automated Comments: [facility] [address] [place], [place], [address] Absolute Lymph 2.54 {X10_3/ul} (Normal) Range: 0.83-4.51 [...] 4.2-5.4 WBC 7.8 K/mm3 (Normal) Range: 4.4-11.0 9-Bao-514011:11 Comprehensive Metabolic Profil Comments: [facility] [address] [place], [address] GAP 6 (Normal) Range: 5-15 CO2 29.0 [...] 200 mg/dLsuggests DIABETES MELLITUS per A.D.A. criteria. 72-Qom-297825:47 Pap IG, HPV-hr Comments: No. of containers..01 CYTYC Thin Prep VialPERFORMED BY: WB TreSensaton120 [facility] [id number] BY: =G TreSensaton120 [facility] [id number] Information: [id number] HPV, high-risk Negative Comments: This high-risk HPV [...] metaplasticcells (endocervical component) are present.Z01.419Z11.51Leslie Muñoz , Health Analytics Consultant (ASCP) :56 HgA1C , Office (96109) HgA1C , Office 6.4 % (Normal) Range: 4.6 - 7.1 :56 Blood Glucose , Office (58166) Blood Glucose , Office 132 (Normal) 8-Sjn-218656:21 Microscopic Examination Comments: PATIENT WAS FASTINGPERFORMED BY: LabCoAlta Vista Regional HospitalGxfezq5689 [facility] [id number] Bacteria None seen (Normal) Mucus Threads Present (Normal) Cast Type Hyaline casts (Normal) Casts Present {/lpf} (Abnormal) Epithelial Cells (non renal) 0-10 {/hpf} (Normal) Range: 0 - 10 RBC 0-2 {/hpf} (Normal) Range: 0 - 2 WBC 0-5 {/hpf} (Normal) Range: 0 - 5 :15 CBC W/Diff, Automated Comments: [facility] [address]ts[address] [place], [address] Absolute Lymph 3.05 {X10_3/ul} (Normal) Range: 0.83-4.51 [...] 4.2-5.4 WBC 9.4 K/mm3 (Normal) Range: 4.4-11.0 65-Ufx-544305:15 Comprehensive Metabolic Profil Comments: [facility] [address] [place], [place], [address] GAP 8 (Normal) Range: 5-15 CO2 27.0 [...] HOMEOSTASIS per A.D.A. criteria. :15 Lipase Comments: [facility] [address] [place], [id number] LIPASE 206 U/L (Normal) Range: 73-393 :54 CBC W/Diff, Automated Comments: [facility] [address]ukdjuy[address] [place], [place], [address] Absolute Lymph 2.75 {X10_3/ul} (Normal) Range: 0.83-4.51 [...] 4.2-5.4 WBC 5.7 K/mm3 (Normal) Range: 4.4-11.0 1-Kdm-131300:54 Comprehensive Metabolic Profil Comments: [facility] [address]nlbtby[address] [place], [place], [address] GAP 6 (Normal) Range: 5-15 CO2 30.0 [...] <126 mg/dLsuggests IMPAIRED HOMEOSTASIS per A.D.A. criteria. 7-Anv-694900:21 CALCIFIDIOL (44266) VIT D 25 Comments: PATIENT WAS FASTINGPERFORMED BY: [facility] Uvxkdd4535 [facility] [id number] Vitamin D, 25-Hydroxy 114.0 ng/mL (Abnormal) Range: 30.0-100.0 Comments: Vitamin D deficiency has been defined by the [place] ofMedicine and an Endocrine Society practice guideline as alevel of serum 25-OH vitamin D less than 20 ng/mL (1,2).The Endocrine Society went on to further define vitamin Dinsufficiency as a level between 21 and 29 ng/mL (2).1. IOM ([place] of Medicine). 2010. Dietary reference intakes for calcium and D. Real [place]: The National Academies Press.2. Mekhi MF, Dee Dee HADDAD, Fransisco HERNDON, et al. Evaluation, treatment, and prevention of vitamin D deficiency: an Endocrine Society clinical practice guideline. JCEM. 2010; 96(7):8951-30. :21 TSH (72087) Comments: PATIENT WAS FASTINGPERFORMED BY: Promethera BiosciencesThe Rehabilitation Institute Of St. LouisZqvqrl0065 [facility] [id number] TSH 2.730 {uIU/mL} (Normal) Range: 0.450-4.500 5-Mzw-790605:21 URINALYSIS, W/ MICRO (41114) Comments: PATIENT WAS FASTINGPERFORMED BY: [employer]ethe[employer] BiosciencesFormerly [facility]6370 [facility] [id number] Microscopic Examination See below: (Normal) Comments: Microscopic was indicated and was performed. Nitrite, Urine Negative (Normal) Urobilinogen,Semi-Qn 0.2 mg/dL (Normal) Range: 0.2-1.0 Bilirubin Negative (Normal) Occult Blood Negative (Normal) Ketones Negative (Normal) Glucose Negative (Normal) Protein Negative (Normal) WBC Esterase Trace (Abnormal) Appearance Clear (Normal) Urine-Color Yellow (Normal) pH 6.0 (Normal) Range: 5.0-7.5 Specific [place] 1.020 (Normal) Range: 1.005-1.030 :21 MICROALBUMIN: CREATININE RATIO Comments: PATIENT WAS FASTINGPERFORMED BY: [place] Nsawlt2628 [facility] [id number] (74269) AND (29027) Microalb/Creat Ratio 5.3 {mg/g_creat} (Normal) Range: 0.0-30.0 Microalbumin, Urine 7.4 ug/mL (Normal) Creatinine, Urine 139.7 mg/dL (Normal) :21 METABOLIC PANEL, COMPREHENSIVE Comments: PATIENT WAS FASTINGPERFORMED BY: [place] Vlbmdk2587 [facility] [id number] (11518) ALT (SGPT) 20 [iU]/L (Normal) Range: 0-32 [...] Glucose, Serum 155 mg/dL (Abnormal) Range: 65-99 7-Fae-722625:21 CBC W/AUTO DIFF WBC Comments: PATIENT WAS FASTINGPERFORMED BY: LabCoBayshore Community HospitalLhrcdh5705 [facility] [id number] Information: [id number] (32775) Immature Grans (Abs) 0.0 {x10E3/uL} (Normal) Range: [...] (Normal) Range: 3.4-10.8 :07 HgA1C , Office (42264) HgA1C , Office 5.8 % (Normal) Range: 4.6 - 7.1 :07 Blood Glucose , Office (80875) Blood Glucose , Office 92 (Normal) :05 HgA1C , Office (68937) HgA1C , Office 6.6 % (Normal) Range: 4.6 - 7.1 :05 Blood Glucose , Office (43819) Blood Glucose , Office 130 (Normal) :46 CBC W/Diff, Automated Comments: [facility] [address]vwg[address] [place], [place], [address] Absolute Lymph 3.03 {X10_3/ul} (Normal) Range: 0.83-4.51 [...] 4.2-5.4 WBC 7.2 K/mm3 (Normal) Range: 4.4-11.0 4-Tqv-269030:46 Comprehensive Metabolic Profil Comments: [facility] Bbutehgmvf4924 [facility] [place], [address] GAP 7 (Normal) Range: 5-15 [...] A.D.A. criteria. :09 Blood Glucose , Office (32525) Blood Glucose , Office 181 (Normal) :09 HgA1C , Office (43414) HgA1C , Office 7.1 % (Normal) Range: 4.6 - 7.1 1-Qcd-288037:50 AFP, Tumor Marker Comments: Is Patient ? NComments[facility] (refer to report for specific site)refer to report for address and phone number AFP TUMOR 2253 1.6 ng/mL (Normal) Range: 0.0-8.3 Comments: Aric ECLIA methodologyPerformed at: CB - [facility] [address] [id number] Director: Herve Mata PhD, Phone: [phone] 5-Enq-454245:50 CBC W/Diff, Automated Comments: [facility] [address]fecmd[address] [place], [place], [address] Absolute Lymph 3.23 {X10_3/ul} (Normal) Range: 0.83-4.51 [...] 4.2-5.4 WBC 7.6 K/mm3 (Normal) Range: 4.4-11.0 9-Bkr-562027:50 Comprehensive Metabolic Profil Comments: Comments: [facility] Azjozbnpgs[address] [place], [place], [address] GAP 6 (Normal) Range: 5-15 CO2 28.0 [...] <126 mg/dLsuggests IMPAIRED HOMEOSTASIS per A.D.A. criteria. 8-Cfb-396656:50 Lipid Profile Comments: Comments: [facility] Zexewieqwg9[address] [place], [place], [phone] VLDL 34 mg/dL (Normal) Range: 5-40 LDL [...] 200-240 mg/dL Borderline >240 mg/dL High Risk 9-Qwu-105995:50 Microalb:Creat Ratio,Random UR Comments: [facility] [address] [place], [address] MALB:CREAT 15.3 {mg/g_CRE} (Normal) MICROALBUMIN,UR 20.4 mg/L (Normal) UR CREAT 133.00 mg/dL (Normal) 1-Mru-457159:50 Prothrombin Time w/INR Comments: [facility] [address] [place], [address] INR 0.9 (Normal) PROTIME 12.8 s (Normal) Range: 11.7-14.9 8-Ytn-563667:50 Thyroid Stim Hormone (TSH) Comments: Comments: [facility] [address]ysrha[address] [place], [address] TSH 1.00 {uIU/mL} (Normal) Range: 0.358-3.74 4-Lem-410330:50 Urinalysis, Complete Comments: Comments: NHow was Urine Obtained? Urine, RandomWBlanch[facility] [address]jgzy[address] [place], [address] MUCUS, URINE 0 SEEN {/hpf} (Normal) [...] (Normal) CLARITY Clear (Normal) COLOR Yellow (Normal) 9-Hms-856460:50 Vitamin D,25 Hydroxy Comments: [facility] [address]wahem[address] [place], [address] Vitamin D 25-OH 81.8 ng/mL (Normal) Comments: Vitamin D 25(OH) Status Range Deficiency <20 ng/mL (50nmol/L) Insuffciency 20 - 30 ng/mL (50 - 75 nmol/L) Sufficiency 30 - 100 ng/mL (75 - 250 nmol/L) Toxicity >100 ng/mL (>250 nmol/L) 4-Wyk-690356:27 HPV automatic Comments: Source.............Cervical;EndocervicalNo. of containers..01 CYTYC Thin Prep VialPATIENT NOT FASTINGPERFORMED BY: [facility] [address]oz[address]uj[address] [id number] BY: Nader [address] ([address]) [facility] [address] [id number] Information: [id number] HPV, high-risk Negative Comments: This high-risk HPV [...] squamous metaplasticcells (endocervical component) are present.V70.0Thania cotter Health Analytics Consultant (ASCP) 66-Enf-323885:27 Amylase (85026) Comments: PATIENT NOT FASTINGPERFORMED BY: [facility] Ufhlkx7918 [facility] [id number] Amylase, Serum 58 U/L (Normal) Range: 31-124 13-Prg-460384:27 Lipase (36386) Comments: PATIENT NOT FASTINGPERFORMED BY: [facility] Rnregq8001 [facility] [id number] Lipase, Serum 46 U/L (Normal) Range: 0-59 :27 Sed Rate Erythrocyte (78081) Comments: PATIENT NOT FASTINGPERFORMED BY: [facility] Dxojac6850 [facility] [id number] Sedimentation Rate-Westergren 21 mm/h (Normal) Range: 0-40 :27 Metabolic Panel, Comprehensive Comments: PATIENT NOT FASTINGPERFORMED BY: [facility] Mxvbdx5592 [facility] [id number] (79288) ALT (SGPT) 16 [iU]/L (Normal) Range: 0-32 [...] auto diff Comments: PATIENT NOT FASTINGPERFORMED BY: LabCoBayshore Community HospitalQaeogl4839 [facility] [id number] Information: [id number] (67826) Immature Grans (Abs) 0.0 {x10E3/uL} (Normal) Range: [...] (Normal) Range: 3.4-10.8 :04 HgA1C , Office (09867) HgA1C , Office 6.3 % (Normal) Range: 4.6 - 7.1 :04 Blood Glucose , Office (97104) Blood Glucose , Office 131 (Normal) 4-Aug-31206:21 CBC W/Diff, Automated Comments: Test performed at:[facility] [address]xfjcluu[address] [place], [place] [id number] Absolute Lymph 3.64 {X10_3/ul} (Normal) Range: 0.83-4.51 [...] :21 Comprehensive Metabolic Profil Comments: Test performed at:[facility] [address]fhmpdg[address] [place] [address] GAP 9 (Normal) Range: 5-15 [...] Comments: Please note revised CREATININE reference range vpzkjyfdz09/22/2015. BUN 16 mg/dL (Normal) Range: 7-18 GLU 100 mg/dL (Normal) Range: 70-110 01-Cqu-14662:45 Basic Metabolic Profile (BMP) Comments: Test performed at:[facility] [address] [place] [address] GAP 11 (Normal) Range: 5-15 CO2 22.0 [...] :45 CBC W/Diff, Automated Comments: Test performed at:[facility] [address] [place] [address] Absolute Lymph 2.61 {X10_3/ul} (Normal) [...] Range: 4.4-11.0 :45 Lipase Comments: Test performed at:[facility] Pwolqpoatp5843 [facility] [place] [address] LIPASE 229 U/L (Normal) Range: 70-290 :45 Liver Profile Comments: Test performed at:[facility] [address] [place] [address] D BILI 0.11 mg/dL (Normal) Range: 0.00-0.30 T BILI 0.60 mg/dL (Normal) Range: 0.20-1.00 ALT 22 U/L (Normal) Range: 12-78 ALK P 103 U/L (Normal) Range: 50-136 AST 19 U/L (Normal) Range: 15-37 GLOB 5.3 g/dL (Abnormal) Range: 2.7-4.2 ALB 4.0 g/dL (Normal) Range: 3.4-5.0 T PROT 9.3 g/dL (Abnormal) Range: 6.4-8.2 :04 HgA1C , Office (13989) HgA1C , Office 6.2 % (Normal) Range: 4.6 - 7.1 :04 Blood Glucose , Office (33067) Blood Glucose , Office 124 (Normal) :39 CBC With Differential/Platelet Comments: PATIENT WAS FASTINGPERFORMED BY: [facility] [id number] Information: [id number] Immature Grans (Abs) 0.0 {x10E3/uL} (Normal) Range: [...] 3.77-5.28 WBC 8.3 {x10E3/uL} (Normal) Range: 3.4-10.8 [id number] Comp. Metabolic Panel (14) Comments: PATIENT WAS FASTINGPERFORMED BY: [facility] [id number] [facility] [id number] ALT (SGPT) 14 [iU]/L (Normal) Range: 0-32 [...] Glucose, Serum 88 mg/dL (Normal) Range: 65-99 [id number] Lipid Panel With LDL/HDL Comments: PATIENT WAS FASTINGPERFORMED BY: [place] [employer] [facility] [id number] Ratio LDL/HDL Ratio 3.2 {ratio_units} (Normal) Range: [...] Randm Ur Comments: PATIENT WAS FASTINGPERFORMED BY: [place] [id number] [facility] [id number] Microalb/Creat Ratio 9.6 {mg/g_creat} (Normal) Range: 0.0-30.0 Microalbumin, Urine 25.3 ug/mL (Abnormal) Range: 0.0-17.0 Creatinine, Urine 263.9 mg/dL (Normal) Range: 15.0-278.0 [id number] Microscopic Examination Comments: PATIENT WAS FASTINGPERFORMED BY: [facility]opAl[facility] Vista Regional HospitalBxtdat3891 [facility] [id number] Bacteria Few (Normal) Mucus Threads Present (Normal) Epithelial Cells (non 0-10 {/hpf} Range: 0 - 10 renal) (Normal) RBC 0-2 {/hpf} (Normal) Range: 0 - 2 WBC 11-30 {/hpf} Range: 0 - 5 (Abnormal) TSH 2.990 {uIU/mL} Comments: PATIENT WAS FASTINGPERFORMED BY: [facility]6370 [facility] [id number] 5:39 (Normal) Range: 0.450-4.500 45-Apa-459104:39 Urinalysis, Complete Comments: PATIENT WAS FASTINGPERFORMED BY: [facility]6370 [facility] [id number] Microscopic Examination See below: (Normal) Comments: Microscopic was indicated and was performed. Nitrite, Urine Negative (Normal) Urobilinogen,Semi-Qn 0.2 mg/dL (Normal) Range: 0.0-1.9 Bilirubin Negative (Normal) Occult Blood Negative (Normal) Ketones Negative (Normal) Glucose Negative (Normal) Protein Negative (Normal) WBC Esterase 1+ (Abnormal) Appearance Clear (Normal) Urine-Color Yellow (Normal) pH 5.0 (Normal) Range: 5.0-7.5 Specific [place] 1.025 (Normal) Range: 1.005-1.030 Vitamin D, 25-Hydroxy 85.8 ng/mL (Normal) Comments: PATIENT WAS FASTINGPERFORMED BY: [facility]6370 [facility] [id number] 5:39 Range: 30.0-100.0 Comments: Vitamin D deficiency has been defined by the [place] ofJoint [facility] Hospitalcine and an Endocrine Society practice guideline as alevel of serum 25-OH vitamin D less than 20 ng/mL (1,2).The Endocrine Society went on to further define vitamin Dinsufficiency as a level between 21 and 29 ng/mL (2).1. IOM ([place] of Medicine). 2010. Dietary reference intakes for calcium and D. Real [place]: The National Academies Press.2. Mekhi MF, [place] NC, Fransisco HERNDON, et al. Evaluation, treatment, and prevention of vitamin D deficiency: an Endocrine Society clinical practice guideline. JCEM. 2010; 96(7):1911-30. :49 CBC W/Diff, Automated Comments: Test performed at:[facility] [address] [place] [address] Absolute Lymph 3.72 {X10_3/ul} (Normal) [...] :49 Comprehensive Metabolic Profil Comments: Test performed at:[facility] Rfpjruzpid4973 [facility] [place] [address] GAP 7 (Normal) Range: 5-15 [...] 126 mg/dLsuggests DIABETES MELLITUS per A.D.A. criteria. 0-Uat-331206:31 Sed Rate Erythrocyte (78588) Comments: PATIENT NOT FASTINGPERFORMED BY: [facility]CoB[facility] HospitalGlnznb4769 [facility] [id number] Sedimentation Rate-Westergren 33 mm/h (Normal) Range: 0-40 2-Zjy-173191:31 METABOLIC PANEL, COMPREHENSIVE Comments: PATIENT NOT FASTINGPERFORMED BY: [facility]CoB[facility] HospitalTwfckz4557 [facility] [id number] (07894) ALT (SGPT) 14 [iU]/L (Normal) Range: 0-32 [...] Glucose, Serum 107 mg/dL (Abnormal) Range: 65-99 4-Yol-997292:31 CBC W/AUTO DIFF WBC Comments: PATIENT NOT FASTINGPERFORMED BY: [facility] Yrltuq5064 [facility] [id number] Information: [id number] (59390) Immature Grans (Abs) 0.0 {x10E3/uL} (Normal) Range: [...] (Normal) Range: 3.4-10.8 :18 HgA1C , Office (50952) HgA1C , Office 6.2 % (Normal) Range: 4.6 - 7.1 :18 Blood Glucose , Office (74530) Blood Glucose , Office 131 (Normal) :12 CBC W/AUTO DIFF WBC Comments: PATIENT WAS FASTINGPERFORMED BY: [facility] HospitalOivwod5785 [facility] [id number] Information: [id number] (27459) Immature Grans (Abs) 0.0 {x10E3/uL} (Normal) Range: [...] PANEL, COMPREHENSIVE Comments: PATIENT WAS FASTINGPERFORMED BY: [facility]CoB[facility] HospitalZplsqq6501 [facility] [id number] (94614) ALT (SGPT) 28 [iU]/L (Normal) Range: 0-32 [...] mg/dL (Normal) Range: 65-99 :12 LIPID PANEL (58375) Comments: PATIENT WAS FASTINGPERFORMED BY: [facility] Huoccy7066 [facility] [id number] LDL/HDL Ratio 1.9 {ratio_units} (Normal) Range: 0.0-3.2 [...] (Normal) Range: 100-199 :44 HgA1C , Office (49255) HgA1C , Office 6.1 % (Normal) Range: 4.6 - 7.1 0-Qkh-859493:24 CBCD ALC 2.61 {X10_3/ul} (Normal) Range: 0.83-4.51 [...] (Normal) Range: 70-110 :36 HgA1C , Office (20901) HgA1C , Office 7.5 % (Abnormal) Range: 4.6 - 7.1 :36 Blood Glucose , Office (14754) Blood Glucose , Office 150 (Normal) :05 CALCIFIDIOL (27113) VIT D 25 Comments: PATIENT WAS FASTINGPERFORMED BY: [facility] HospitalAsqcxu6369 [facility] [id number] Vitamin D, 25-Hydroxy 75.4 ng/mL (Normal) Range: 30.0-100.0 Comments: Vitamin D deficiency has been defined by the [place] ofMedicine and an Endocrine Society practice guideline as alevel of serum 25-OH vitamin D less than 20 ng/mL (1,2).The Endocrine Society went on to further define vitamin Dinsufficiency as a level between 21 and 29 ng/mL (2).1. IOM ([place] of Medicine). 2010. Dietary reference intakes for calcium and D. Real [place]: The National Academies Press.2. Mekhi MF, [place] NC, Fransisco HERNDON, et al. Evaluation, treatment, and prevention of vitamin D deficiency: an Endocrine Society clinical practice guideline. JCEM. 2010; 96(7):1911-30. 9-Zwf-289995:05 LIPID PANEL (47303) Comments: PATIENT WAS FASTINGPERFORMED BY: [facility]Co[facility] HospitalPiydwe2979 [facility] [id number] Information: [id number] LDL/HDL Ratio 3.4 {ratio_units} (Abnormal) Range: 0.0-3.2 [...] Cholesterol, Total 232 mg/dL (Abnormal) Range: 100-199 32-Ilm-677352:51 CBCD ALC 3.00 {X10_3/ul} (Normal) Range: 0.83-4.51 [...] 4.2-5.4 WBC 6.9 K/mm3 (Normal) Range: 4.4-11.0 11-Xtx-517649:51 CMP GAP 5 (Normal) Range: 5-15 CO2 [...] mg/dLsuggests DIABETES MELLITUS per A.D.A. criteria. :52 CGKNT-JVVVUWAHEVP-MISLW (24600) Comments: PATIENT NOT FASTINGPERFORMED BY: [address] [id number] AFP, Serum, Tumor Marker 1.9 ng/mL (Normal) Range: 0.0-8.3 Comments: Aric ECLIA methodology :52 PTT (Activated Partial Comments: PATIENT NOT FASTINGPERFORMED BY: [facility]6370 [facility] [id number] Thromboplastin Time) (02111) aPTT 28 {sec} (Normal) Range: 24-33 Comments: This test has not been validated for monitoring unfractionated heparintherapy. aPTT-based therapeutic ranges for unfractionated heparintherapy have not been established. For general guidelines onHeparin monitoring, refer to the [facility] Directory of Services. :52 PT (Prothrobim Time) Comments: PATIENT NOT FASTINGPERFORMED BY: [address] [id number] Information: [id number] (61256) Prothrombin Time 11.1 {sec} (Normal) Range: 9.1-12.0 INR 1.1 (Normal) Range: 0.8-1.2 Comments: Reference interval is for non-anticoagulated patients. . Suggested INR therapeutic range for Vitamin K anta gonist therapy: Standard Dose (moderate intensity therapeutic range): 2.0 - 3.0 Higher intensity therapeutic range 2.5 - 3.5 09-Fmz-387767:05 Microscopic Examination Comments: PATIENT WAS FASTINGPERFORMED BY: [place] Majyxc2533 Aleman RoadDublin [place] [id number] Bacteria Few (Normal) Mucus Threads Present (Normal) Epithelial Cells (non renal) 0-10 {/hpf} (Normal) Range: 0 - 10 RBC 0-3 {/hpf} (Normal) Range: 0 - 3 Comments: Effective January 10, 2014 the reference interval for RBC will be changing to: 0 - 2 /hpf. WBC 11-30 {/hpf} (Abnormal) Range: 0 - 5 51-Ovl-62033:00 Vitamin D Hydroxy (75820) Comments: PATIENT WAS FASTINGPERFORMED BY: [place] Wyzrks9996 [address] [facility] MichiganDublin [place] [id number] Vitamin D, 25-Hydroxy 16.4 ng/mL (Abnormal) Range: 30.0-100.0 Comments: Vitamin D deficiency has been defined by the [place] ofJoint [facility] Hospitalcine and an Endocrine Society practice guideline as alevel of serum 25-OH vitamin D less than 20 ng/mL (1,2).The Endocrine Society went on to further define vitamin Dinsufficiency as a level between 21 and 29 ng/mL (2).1. IOM ([place] of Medicine). 2010. Dietary reference intakes for calcium and D. Real [place]: The National Academies Press.2. Mekhi MF, [place] NC, Fransisco HERNDON, et al. Evaluation, treatment, and prevention of vitamin D deficiency: an Endocrine Society clinical practice guideline. JCEM. 2010; 96(7):1911-30. :00 TSH (09651) Comments: PATIENT WAS FASTINGPERFORMED BY: [facility] Kamjpo5992 Aleman RoadDublin [place] [id number] TSH 2.300 {uIU/mL} (Normal) Range: 0.450-4.500 80-Bmu-28365:00 URINALYSIS, W/ MICRO (29510) Comments: PATIENT WAS FASTINGPERFORMED BY: [facility]6370 [facility] [id number] Microscopic Examination See below: (Normal) Nitrite, Urine Negative (Normal) Urobilinogen,Semi-Qn 0.2 mg/dL (Normal) Range: 0.0-1.9 Bilirubin Negative (Normal) Ketones Negative (Normal) Occult Blood Negative (Normal) Glucose Negative (Normal) Protein Negative (Normal) WBC Esterase 2+ (Abnormal) Appearance Clear (Normal) Urine-Color Yellow (Normal) pH 5.5 (Normal) Range: 5.0-7.5 Specific [place] 1.020 (Normal) Range: 1.005-1.030 : MICROALBUMIN: CREATININE RATIO Comments: PATIENT WAS FASTINGPERFORMED BY: [facility]6370 [facility] [id number] (98026) AND (48692) Microalb/Creat Ratio 17.6 {mg/g_creat} (Normal) Range: 0.0-30.0 Microalbumin, Urine 23.6 ug/mL (Abnormal) Range: 0.0-17.0 Creatinine, Urine 134.3 mg/dL (Normal) Range: 15.0-328.0 METABOLIC PANEL, COMPREHENSIVE Comments: PATIENT WAS FASTINGPERFORMED BY: [facility]6370 [facility] [id number] (60131) ALT (SGPT) 32 [iU]/L (Normal) Range: 0-32 [...] mg/dL (Abnormal) Range: 65-99 :00 LIPID PANEL (71798) Comments: PATIENT WAS FASTINGPERFORMED BY: [employer] [facility] [id number] LDL/HDL Ratio 2.8 {ratio_units} (Normal) Range: 0.0-3.2 [...] MANUAL DIFF Comments: PATIENT WAS FASTINGPERFORMED BY: [facility]6370 [facility] [id number] Information: [id number] (43610) Immature Grans (Abs) 0.0 {x10E3/uL} (Normal) Range: [...] (Normal) Range: 3.4-10.8 :55 HgA1C , Office (93000) HgA1C , Office 6.6 % (Normal) Range: 4.6 - 7.1 :55 Blood Glucose , Office (60713) Blood Glucose , Office 169 (Normal) :22 HgA1C , Office (96677) HgA1C , Office 6.3 % (Normal) Range: 4.6 - 7.1 :22 Blood Glucose , Office (31365) Blood Glucose , Office 131 (Normal) 00-Abf-957758:16 TSH (13176) Comments: PATIENT WAS FASTINGPERFORMED BY: [facility] HospitalSppitk3931 [facility] [id number] TSH 2.790 {uIU/mL} (Normal) Range: 0.450-4.500 71-Zjl-090907:16 Lipid Panel (13508) Comments: PATIENT WAS FASTINGPERFORMED BY: Sogou Zoyjkb2603 [facility] [id number] Information: ADD [id number] AND DRAW FEE 99 6660 LDL/HDL Ratio 2.8 {ratio_units} (Normal) Range: 0.0-3.2 LDL Cholesterol Calc 130 mg/dL (Abnormal) Range: 0-99 VLDL Cholesterol Daniel 30 mg/dL (Normal) Range: 5-40 HDL Cholesterol 47 mg/dL (Normal) Comments: According to ATP-III Guidelines, HDL-C >59 mg/dL is considered anegative risk factor for CHD. Triglycerides 151 mg/dL (Abnormal) Range: 0-149 Cholesterol, Total 207 mg/dL (Abnormal) Range: 100-199 6-Uxc-738018:34 Microscopic Examination Comments: PATIENT NOT FASTINGPERFORMED BY: Sogou Tnoeqq9844 [facility] [id number] Bacteria None seen (Normal) Mucus Threads Present (Normal) Epithelial Cells (non renal) 0-10 {/hpf} (Normal) Range: 0 - 10 RBC None seen {/hpf} (Normal) Range: 0 - 3 WBC 11-30 {/hpf} (Abnormal) Range: 0 - 5 6-Hdk-760522:34 TSH (44090) Comments: PATIENT NOT FASTINGPERFORMED BY: Sogou Fgtjxh9443 [facility] [id number] TSH 2.010 {uIU/mL} (Normal) Range: 0.450-4.500 0-Bjh-376208:34 URINALYSIS, W/ MICRO (36368) Comments: PATIENT NOT FASTINGPERFORMED BY: [place] Auhpvi9189 [facility] [id number] Microscopic Examination See below: (Normal) Nitrite, Urine Negative (Normal) Bilirubin Negative (Normal) Urobilinogen,Semi-Qn 0.2 mg/dL (Normal) Range: 0.0-1.9 Occult Blood Negative (Normal) Glucose Negative (Normal) Ketones Negative (Normal) Protein Negative (Normal) WBC Esterase Trace (Abnormal) Appearance Clear (Normal) Urine-Color Yellow (Normal) pH 5.5 (Normal) Range: 5.0-7.5 Specific [place] 1.020 (Normal) Range: 1.005-1.030 :34 MICROALBUMIN: CREATININE RATIO Comments: PATIENT NOT FASTINGPERFORMED BY: Sogou Pspwdv4631 [facility] [id number] (26623) AND (96346) Microalb/Creat Ratio 4.2 {mg/g_creat} (Normal) Range: 0.0-30.0 Microalbumin, Urine 6.3 ug/mL (Normal) Range: 0.0-17.0 Creatinine, Urine 150.8 mg/dL (Normal) Range: 15.0-278.0 :34 METABOLIC PANEL, COMPREHENSIVE Comments: PATIENT NOT FASTINGPERFORMED BY: [facility]6370 [facility] [id number] (90281) ALT (SGPT) 73 [iU]/L (Abnormal) Range: 0-32 [...] Glucose, Serum 136 mg/dL (Abnormal) Range: 65-99 1-Aby-771300:34 LIPID PANEL (88358) Comments: PATIENT NOT FASTINGPERFORMED BY: [facility]aloopB[facility] HospitalZhwgkf7939 [facility] [id number] LDL/HDL Ratio 2.5 {ratio_units} (Normal) Range: 0.0-3.2 [...] MANUAL DIFF Comments: PATIENT NOT FASTINGPERFORMED BY: [facility]CoB[facility] HospitalInegbo9068 [facility] [id number] Information: [id number] (17754) Immature Grans (Abs) 0.0 {x10E3/uL} (Normal) Range: [...] (Normal) Range: 3.4-10.8 :28 HgA1C , Office (61651) HgA1C , Office 7.1 % (Normal) Range: 4.6 - 7.1 :28 Blood Glucose , Office (06140) Blood Glucose , Office 144 (Normal) 64-Wbm-530860:05 HPV automatic Comments: Source.............Cervical;EndocervicalNo. of containers..01 CYTYC Thin Prep VialPATIENT NOT FASTINGPERFORMED BY: WB [facility] Eprbuscffl749 [facility] [id number] BY: =G L (68628) [facility] Ocjglozhxm963 [facility] [id number] Information: [id number] HPV, high-risk Negative Comments: This high-risk HPV [...] atrophy.V 72.31 ; Routine gynecological examinationSnathanael Chan Health Analytics Consultant (ASCP) :55 CBCD ANC 4.2 3/uL (Normal) [...] SED tSEDRATE 28 mm/h (Normal) Range: 0-30 38-Gxb-746327:24 Rapid Flu (16717 x 2) Influenza A Ag negative (Normal) [...] ecystokinin (0.02 ug/kg) was administered intravenously over u21-yhhxzj period. The post CCK gallbladder ejection fraction nilbmqloryev84 minutes following Cholecystokinin administration was noted to [...] Gandhi M.D.June 24, 2012 at 9:54:02 PM [id number] Signed RB/RB If you are the referring physician and would like to consult with theradiologist who provided this inter pretation, please contact Vincent Frost at [phone]. If this radiologist is unavailable, you will bedirected to another radiologist to assist. If you are a patient with a question regarding this report, pleasecontactyour referring physician directly. Professional Interpretation Provided By: [employer], Phone , These documents contain legally protected [...] Gage Gandhi DO :09 HgA1C , Office (05032) HgA1C , Office 6.6 % (Normal) Range: 4.6 - 7.1 :09 Blood Glucose , Office (25920) Blood Glucose , Office 141 (Normal) 78-Kmk-131693:29 Blood Glucose , Office (50790) Blood Glucose , Office 113 (Normal) 97-Zas-727992:29 HgA1C , Office (64552) HgA1C , Office 6.8 % (Normal) Range: 4.6 - 7.1 :44 LIPID PANEL (01454) Comments: PATIENT WAS FASTINGPERFORMED BY: [facility] Ghwnkp8361 [facility] [id number] Information: [id number] LDL/HDL Ratio 2.2 {ratio_units} (Normal) Range: 0.0-3.2 LDL Cholesterol Calc 101 mg/dL (Abnormal) Range: 0-99 VLDL Cholesterol Daniel 40 mg/dL (Normal) Range: 5-40 HDL Cholesterol 46 mg/dL (Normal) Comments: According to ATP-III Guidelines, HDL-C >59 mg/dL is considered anegative risk factor for CHD. Triglycerides 198 mg/dL (Abnormal) Range: 0-149 Cholesterol, Total 187 mg/dL (Normal) Range: 100-199 :47 HgA1C , Office (73450) HgA1C , Office 6.3 % (Normal) Range: 4.6 - 7.1 :47 Blood Glucose , Office (52450) Blood Glucose , Office 183 (Normal) :15 [...] mg/dL suggests IMPAIRED HOMEOSTASIS per A.D.A. criteria. 23-Ylj-74892:15 COMPLETE UA Comments: appt 08/08/11 MUCUS, URINE [...] (Normal) Range: 0.358-3.74 :36 HgA1C , Office (11402) HgA1C , Office 5.9 % (Normal) Range: 4.6 - 7.1 :36 Blood Glucose , Office (73622) Blood Glucose , Office 127 (Normal) :00 LISANDRO CULTURE-OTHER (90520) Comments: PATIENT NOT FASTINGPERFORMED BY: [facility]CoB[facility] HospitalBmhate7146 [facility] [id number] Result 1 RRF (Normal) Comments: Routine respiratory thai Upper Respiratory Culture Final report (Normal) :14 Blood Glucose , Office (05854) Blood Glucose , Office 119 (Normal) :14 HgA1C , Office (17939) HgA1C , Office 6.1 % (Normal) Range: [...] 11.6-14.6 WBC 5.8 K/mm3 (Normal) Range: 4.4-11.0 09-Zgy-596879:37 COMP METABOLIC A/G 0.9 {RATIO} (Normal) Range: [...] ANEX PANEL ANTI-COTTER AB 5 AU/mL (Normal) ELECTRICAL WORKER AB 29 AU/mL (Normal) : ANTI JO1 [...] Result Units: mg/dL AdultPerformed at: - [facility] [address] [id number] Director: Leatha Mark MD, Phone: [phone] COMP C4 1834 32 (Normal) Range: [...] SSB 11 AU/mL (Normal) :00 VIT D,25 83881 32.4 ng/mL (Normal) Range: 32.0-100.0 Comments: Recent studies consider the lower limit of 32.0 ng/mL to ree threshold for optimal health.Zbigniew CAMACHO. J Nutr. 2004;135(2):317-22. 58-Aak-687473:51 DEXA BONE DENSITY STUDY (HP) Radiology Report See Note (Normal) Comments: Exam Number: [id number] CLINICAL:The patient is a 49-year-old female who is postmenopausal.Menopause at 42 years old. No hormone replacement therapy. EXAMINATION:DUAL ENERGY X-RAY ABSORPTIOM ETRY / DEXA. TECHNIQUE:Bone Density Measurements (BMD) of lumbar spine and bilateral hipswere obtained using a Teramind scanner.. COMPARISON:July 09, 2004 FINDINGS: Lumbar Spine [...] Foundation [email or web address] Reported By: BASHIR CARLSON M.D. 21-Nog-12583:44 Protein Electro, Random Urine Comments: PERFORMED BY: [facility]6370 [facility] [id number] M-Sukhwinder, % Not Observed % (Normal) Please note: SPRCS (Normal) Comments: Protein electrophoresis scan will follow via computer, mail, orcourier delivery. Mtdig-3-Dnagnuoq, U 15.7 % (Normal) Beta Globulin, U 17.7 % (Normal) Gamma Globulin, U 16.9 % (Normal) Albumin, U 47.5 % (Normal) Aeztq-9-Vkrjocmm, U 2.2 % (Normal) Protein,Total,Urine 23.0 mg/dL (Abnormal) Range: 0.0-15.0 :44 Protein Electro.,S Comments: PERFORMED BY: CHARLES [facility] Vnmrtl2679 [facility] [id number] Please note: SPRCS (Normal) Comments: Protein electrophoresis scan will follow via computer, mail, orcourier delivery. A/G Ratio 1.1 (Normal) Range: 0.7-2.0 Nqkzp-4-Bciaspzd 0.9 g/dL (Normal) Range: 0.4-1.2 Beta Globulin 1.2 g/dL (Normal) Range: 0.6-1.3 Gamma Globulin 1.2 g/dL (Normal) Range: 0.5-1.6 Globulin, Total 3.6 g/dL (Normal) Range: 2.0-4.5 M-Sukhwinder Not Observed g/dL (Normal) Albumin 3.9 g/dL (Normal) Range: 3.2-5.6 Yjytz-4-Pmmvipxb 0.2 g/dL (Normal) Range: 0.1-0.4 Protein, Total, Serum 7.5 g/dL (Normal) Range: 6.0-8.5 :34 MECCA-D 438079 MECCA-DIRECT SeeNote (Abnormal) Comments: Result: Positive :34 ANTI-CCP 764509 5 {units} (Normal) Range: 0-19 Comments: Negative [...] mm/h (Normal) Range: 0-30 :34 HB CORE [id number] SeeNote (Normal) Comments: Result: NegativePerformed at: - [facility] [address] [id number] Director: Leatha Mark MDPerformed at: - [facility] [address] [id number] Director: Al White MD :34 HBsAg 6510 [...] of antibody present. :34 HEP C AB 783497 <0.1 (Normal) Range: 0.0-0.9 Comments: Negative: < 0.8Indeterminate 0.8 - 0.9Positive: > 0.9.In order to reduce the incidence of a false positiveresult, the CDC recommends that all s/co ratiosbetween 1.0 and 10.9 be confirmed with additionalRIBA or PCR testing. :34 RHEUMATOID FAC < 10.0 {IU/mL} (Normal) :34 VIT D,25 12798 21.3 ng/mL (Abnormal) Range: 32.0-100.0 Comments: Recent studies consider the lower limit of 32.0 ng/mL to ree threshold for optimal health.Zbigniew CAMACHO. J Nutr. 2004;135(2):317-22. :31 Anti-dsDNA Antibodies Comments: PATIENT WAS FASTINGPERFORMED BY: [employer] Ygtsvs1558 [facility] [id number] Information: [id number] Anti-DNA (DS) Ab Qn <1 {IU/mL} (Normal) Range: 0-9 Comments: Negative <5Equivocal 5 - 9Positive >9 : Written Authorization WAR (Normal) Comments: PATIENT WAS FASTINGPERFORMED BY: Sogou Dnhknd7403 [facility] [id number] Comments: Written Authorization Received.Authorization received from DR CHANEL VARMA 98-79-1353Mgriin by Selma Ba 20-Htp-102468:24 KNEE,4 OR MORE VIEWS ([place]) Radiology Report See Note (Normal) Comments: Exam Number: [id number] LEFT KNEE HISTORYPain. Four views of the [...] BASHIR CARLSON M.D. :31 HEPATIC FUNCTION PANEL (08347) Comments: PATIENT WAS FASTINGPERFORMED BY: [employer] Tumwfy6950 Aleman [facility]inkEC[facility] [id number] Bilirubin, Direct 0.14 mg/dL (Normal) Range: 0.00-0.40 : SED RATE ERYTHROCYTE (47268) Comments: PATIENT WAS FASTINGPERFORMED BY: [employer] Tibque7414 [address] [facility] [id number] Sedimentation Rate-Westergren 15 mm/h (Normal) Range: 0-30 : C-REACTIVE PROTEIN (44604) Comments: PATIENT WAS FASTINGPERFORMED BY: [employer] Jxchmw2683 [facility] [id number] C-Reactive Protein, Quant 11.2 mg/L (Abnormal) Range: 0.0-4.9 : TSH (84765) Comments: PATIENT WAS FASTINGPERFORMED BY: [employer] Toozyj1955 Ale[address] [facility] [id number] TSH 1.970 {uIU/mL} (Normal) Range: 0.450-4.500 : RHEUMATOID FACTOR-QUANT (25779) Comments: PATIENT WAS FASTINGPERFORMED BY: [employer] Azekpr3636 Aleman TsukulinkAtrium Health Harrisburgin [place] [id number] RA Latex Turbid. 6.8 {IU/mL} (Normal) Range: 0.0-13.9 : MECCA (ANTINUCLEAR ANTIBODY) Comments: PATIENT WAS FASTINGPERFORMED BY: [employer] Ilgqpy9631 Aleman [facility] [id number] (64459) MECCA Direct Positive (Abnormal) : CBC WITH MANUAL DIFF Comments: PATIENT WAS FASTINGPERFORMED BY: [facility]6370 [facility] [id number] Information: [id number] (71144) Baso (Absolute) 0.1 {x10E3/uL} (Normal) Range: 0.0-0.2 [...] PANEL, COMPREHENSIVE Comments: PATIENT WAS FASTINGPERFORMED BY: [facility]6370 [facility] [id number] (81168) Alkaline Phosphatase, S 85 [iU]/L (Normal) Range: [...] Range: 65-99 :25 Blood Glucose , Office (72311) Blood Glucose , Office 90 (Normal) :25 HgA1C , Office (45965) HgA1C , Office 6.5 % (Normal) Range: 4.6 - 7.1 :40 Blood Glucose , Office (17260) Blood Glucose , Office 100 (Normal) :40 HgA1C , Office (43234) HgA1C , Office 5.7 % (Normal) Range: 4.6 - 7.1 :08 HEPATIC FUNCTION PANEL Comments: repeat Aug; PATIENT NOT FASTINGPERFORMED BY: [facility]6370 [facility] SoftwareEphra[facility] [id number] (47779) Alkaline Phosphatase, S 84 [iU]/L (Normal) Range: 25-150 ALT (SGPT) 35 [iU]/L (Normal) Range: 0-40 AST (SGOT) 32 [iU]/L (Normal) Range: 0-40 Albumin, Serum 4.3 g/dL (Normal) Range: 3.5-5.5 Bilirubin, Direct 0.10 mg/dL (Normal) Range: 0.00-0.40 Bilirubin, Total 0.4 mg/dL (Normal) Range: 0.1-1.2 Protein, Total, Serum 7.4 g/dL (Normal) Range: 6.0-8.5 :33 Creatinine Clearance Comments: PERFORMED BY: [facility]6370 [facility]elNov[facility] [id number] Creatinine Clearance 119 mL/min (Normal) Range: 88-128 [...] present. Additional information may be found [email or web address]. 28-Pdm-336170:33 Hepatic Function Panel (7) Comments: Clinical Information: 04/21@630AM 04/22@630AM PERFORMED BY: [facility]6370 [facility]elNov[facility] [id number] Albumin, Serum 4.5 g/dL (Normal) Range: 3.5-5.5 Alkaline Phosphatase, S 83 [iU]/L (Normal) Range: 25-150 ALT (SGPT) 54 [iU]/L (Abnormal) Range: 0-40 AST (SGOT) 49 [iU]/L (Abnormal) Range: 0-40 Bilirubin, Direct 0.11 mg/dL (Normal) Range: 0.00-0.40 Bilirubin, Total 0.4 mg/dL (Normal) Range: 0.1-1.2 Protein, Total, Serum 7.6 g/dL (Normal) Range: 6.0-8.5 :33 Microalbumin, 24 hr Urine Comments: PERFORMED BY: CHARLES [employer] [facility] [id number] Microalbumin, Urine 3.5 ug/mL (Normal) Range: 0.0-17.0 Microalbumin,mg/day 5.3 {mg/day} (Normal) :08 Blood Glucose , Office (57298) Blood Glucose , Office 119 (Normal) :07 HgA1C , Office (43473) HgA1C , Office 6.1 % (Normal) Range: 4.6 - 7.1 :51 HEPATIC FUNCTION PANEL Comments: PATIENT NOT FASTINGClinical Information: 75G DRAWN @ 1145AM PERFORMED BY: CHARLES [facility] [id number] (06024) Albumin, Serum 4.7 g/dL (Normal) Range: 3.5-5.5 Alkaline Phosphatase, S 89 [iU]/L (Normal) Range: 25-150 ALT (SGPT) 54 [iU]/L (Abnormal) Range: 0-40 AST (SGOT) 43 [iU]/L (Abnormal) Range: 0-40 Bilirubin, Direct 0.11 mg/dL (Normal) Range: 0.00-0.40 Bilirubin, Total 0.4 mg/dL (Normal) Range: 0.1-1.2 Protein, Total, Serum 7.8 g/dL (Normal) Range: 6.0-8.5 :51 Glucose, PP/2 Hour (31194) Comments: PATIENT NOT FASTINGPERFORMED BY: CHARLES [employer]stats RoadD[address] [place] [id number] Glucose, Two-Hour Postprandial 173 mg/dL (Abnormal) Range: 65-139 :25 Lipid Panel (38313) Comments: PATIENT WAS FASTINGPERFORMED BY: [facility] HospitalQcazvp7271 [facility] [id number] Cholesterol, Total 177 mg/dL (Normal) Range: 100-199 HDL Cholesterol 37 mg/dL (Abnormal) Comments: According to ATP-III Guidelines, HDL-C >59 mg/dL is considered anegative risk factor for CHD. LDL Cholesterol Calc 84 mg/dL (Normal) Range: 0-99 LDL/HDL Ratio 2.3 {ratio_units} (Normal) Range: 0.0-3.2 Triglycerides 280 mg/dL (Abnormal) Range: 0-149 VLDL Cholesterol Daniel 56 mg/dL (Abnormal) Range: 5-40 :25 CBC with manual diff (37311) Comments: PATIENT WAS FASTINGClinical Information: ADD [id number], [id number] PERFORMED BY: [facility] HospitalYplfxk0495 [facility] [id number] Baso (Absolute) 0.0 {x10E3/uL} (Normal) Range: 0.0-0.2 [...] Panel, Comprehensive Comments: PATIENT WAS FASTINGPERFORMED BY: [facility] HospitalRmxheo8901 [facility] [id number] 81593) A/G Ratio 1.4 (Normal) Range: 1.1-2.5 Albumin, [...] 143 mmol/L (Normal) Range: 135-145 12-Apr-20098:25 CALCIFEDIOL (36486) Comments: Draw aroun Apr 06 2009; PATIENT WAS FASTINGPERFORMED BY: [facility] [id number] Vitamin D, 25-Hydroxy 50.3 ng/mL (Normal) Range: 32.0-100.0 Comments: Recent studies consider the lower limit of 32.0 ng/mL to be athreshold for optimal health.Zbigniew CAMACHO. J Nutr. 2004;135(2):317-22. C DIF TOXIN See Note (Normal) Comments: C. DIFF TOXINS A&B NEGATIVE :10 78-Jhv-445546:10 CUL STOOL/SHIG CULTURE, STOOL See Note (Normal) Comments: No Salmonella, Shigella, Yersinia or Campylobacter isolated.No significant amount of Staphylococcus aureusor yeast-like organisms isolated. SHIGA-TOXIN See Note (Normal) Comments: SHIGA-TOXIN 1 & 2 SHIGA TOXIN 1 AND SHIGA TOXIN 2 NOT DETECTED 63-Nsj-031348:10 O AND P See Note (Normal) Comments: OVA AND PARASITES EXAM, ROUTINE These results were obtained using wet preparation(s) and trichrome stained smear. This test does not include testing for Crytosporidium parvum, Cyclospora, or Microspo ridia. TESTING PERFORMED AT [facility]. ORIGINAL REPORT ON FILE IN LAB CONTAINS ADDITIONAL TEST SITE INFORMATION. OVA/ PARASITES EXAM NO OVA, CYSTS, OR PARASITES FOUND. 79-Ygz-691241:10 OCCULT BLD,iFOB See Note (Normal) Comments: OCCULT BLOOD Negative 81-Rtm-084873:10 WBC,STOOL See Note (Normal) Comments: FECAL WBCs NONE SEEN 18-Shp-033943:46 Celiac Disease Panel Comments: PERFORMED BY: [employer] Ddtmjy0896 [facility] [id number] Endomysial Antibody IgA Negative (Normal) Immunoglobulin A, [...] D, 25-Hydroxy 13.4 ng/mL Comments: PERFORMED BY: [facility] Fboyvo9652 [facility] [id number] 11:46 (Abnormal) Range: 32.0-100.0 Comments: Recent studies consider the lower limit of 32.0 ng/mL to be athreshold for optimal health.Zbigniew CAMACHO. J Nutr. 2004;135(2):317-22. 20-Apr-2008 C difficile Toxins A+B, Negative (Normal) Comments: PATIENT NOT FASTINGPERFORMED BY: [facility] [id number] 15:30 EIA 20-Apr-2008 Occult Blood, Stool, Negative (Normal) Comments: PATIENT NOT FASTINGPERFORMED BY: [facility] [id number] 15:30 Guaiac 45-Qdz-285604:30 Ova + Parasite Exam Comments: PATIENT NOT FASTINGPERFORMED BY: [place] 3763970 [facility] [id number] Ova + Parasite Exam Final report (Normal) Comments: These results were obtained using wet preparation(s) and trichromestained smear. This test does not include testing for Cryptosporidiumparvum, Cyclospora, or Microsporidia. Result 1 NOCP (Normal) Comments: No ova, cysts, or parasites seen. :30 Stool Culture Comments: PATIENT NOT FASTINGClinical Information: SRC: STOOL PERFORMED BY: [employer] [facility] [id number] Campylobacter Culture Final report (Normal) E coli Shiga Toxin EIA Negative (Normal) Result 1 NCI (Normal) Comments: No Campylobacter species isolated. Result 1 NSS (Normal) Comments: No Salmonella or Shigella recovered. Salmonella/Shigella Screen Final report (Normal) :30 White Blood Cells (WBC), Comments: PATIENT NOT FASTINGPERFORMED BY: [employer] Wvmnbl5803 [facility] [id number] Stool Result 1 NWBC (Normal) Comments: No white blood cells seen. White Blood Cells (WBC), Final report (Normal) Comments: Reference Range: None Seen Stool :01 CBC with manual diff (54995) Comments: PATIENT NOT FASTINGClinical Information: ADD DRAW FEE [id number] ADD J0 3378 PERFORMED BY: [employer] Iwlajk7711 [facility] [id number] Baso (Absolute) 0.0 {x10E3/uL} (Normal) Range: 0.0-0.2 [...] 11.7-15.0 WBC 8.3 {x10E3/uL} (Normal) Range: 4.0-10.5 93-Mfm-171296:01 Metabolic Panel, Comprehensive Comments: PATIENT NOT FASTINGPERFORMED BY: [facility] HospitalYxerle5311 [facility] [id number] (41013) A/G Ratio 1.3 (Normal) Range: 1.1-2.5 Albumin, [...] Serum 104 mg/dL (Abnormal) Range: 65-99 If -Ecuadorean >60 mL/min/1.73 Range: 60-128 (Normal) Comments: Note: [...] Sodium, Serum 142 mmol/L (Normal) Range: 135-145 5-Dyt-690181:30 ACUTE ABDOMEN, INC CHEST Radiology Report See Note (Normal) Comments: Exam Number: [id number] THREE VIEWS ABDOMEN CLINICAL STATEMENTGeneralized abdominal pain, [...] or abdomen. Reported By: TONO FONTANEZ M.D. 7-Rdg-057942:08 CBCD,SMEAR DIFF BAND 3 % (Normal) Range: [...] essential, benign Hypertension, essential, benign : Reviewed Job Development Specialist Letter Indication: Hypertension, essential, benign Hypertension, essential, [...] Indication: Psoriatic arthropathy Psoriatic arthropathy : Reviewed Job Development Specialist Letter Indication: Psoriatic arthropathy Encounter for gynecological examination without abnormal finding : *Well Female Maintenance ([facility]) Indication: Encounter for gynecological examination without [...] uncontrolled, without complications Psoriatic arthropathy : Reviewed Job Development Specialist Letter Indication: Psoriatic arthropathy Hypercholesteremia : Cholesterol [...] (gastroesophageal reflux disease) Psoriatic arthropathy : Reviewed Job Development Specialist Letter Indication: Psoriatic arthropathy Hypertension, essential, benign [...] uncontrolled, without complications Psoriatic arthropathy : Reviewed Job Development Specialist Letter Indication: Psoriatic arthropathy GERD (gastroesophageal reflux [...] with no complications Psoriatic arthropathy : Reviewed Job Development Specialist Letter Indication: Psoriatic arthropathy Diabetes mellitus type [...] with no complications Psoriatic arthropathy : Reviewed Job Development Specialist Letter Indication: Psoriatic arthropathy Diabetes mellitus type [...] liver GERD (gastroesophageal reflux disease) : Reviewed Job Development Specialist Letter Indication: GERD (gastroesophageal reflux disease) Hypertension, [...] Indication: Fatty liver Psoriatic arthropathy : Reviewed Job Development Specialist Letter Indication: Psoriatic arthropathy Psoriatic arthropathy : [...] pain, acute, right upper quadrant : Reviewed Job Development Specialist Letter Indication: Abdominal pain, acute, right upper [...] Other abnormal glucose Fatty liver : Reviewed Job Development Specialist Letter Indication: Fatty liver Fatty liver : [...] Current Prescription(s) Indication: Psoriasis Psoriasis : Reviewed Job Development Specialist Letter Indication: Psoriasis GERD (gastroesophageal reflux disease) : GERD Education Indication: GERD (gastroesophageal reflux disease) Other abnormal glucose : FOLLOW UP IN 4 MONTHS Indication: Other abnormal glucose Psoriasis : Reviewed Job Development Specialist Letter Indication: Psoriasis Psoriasis : FOLLOW UP IN 1 MONTH Indication: Psoriasis Vitamin D deficiency, unspecified : Reviewed Lab Indication: Vitamin D deficiency, unspecified Psoriatic arthropathy : Reviewed Job Development Specialist Letter Indication: Psoriatic arthropathy Psoriatic arthropathy : [...] Education Indication: Diarrhea Planned Observations HGB A1C (38496)Indication: Diabetes mellitus type 2, uncontrolled, without complications On: Request CALCIFEDIOL (09737)Indication: Vitamin D deficiency, unspecified On: Request TSH (91540)Indication: Diabetes mellitus type 2, uncontrolled, without complications On: Request URINALYSIS, W/ MICRO (09201)Indication: Diabetes mellitus type 2, uncontrolled, without complications On: Request MICROALBUMIN: CREATININE RATIO (98557) AND (73768)Indication: Diabetes mellitus type 2, uncontrolled, without complications On: Request METABOLIC PANEL, COMPREHENSIVE (69958)Indication: Diabetes mellitus type 2, uncontrolled, without complications On: Request LIPOPROTEIN, BLD, BY NMR (91832)Indication: Diabetes mellitus type 2, uncontrolled, without complications On: Request CBC W/AUTO DIFF WBC (54150)Indication: Diabetes mellitus type 2, uncontrolled, without complications On: 51-Mtq-838480:36 Request HGB A1C (62553)Indication: Diabetes mellitus type 2, uncontrolled, without complications On: :21 Request LIPID PANEL (75408)Indication: Hypercholesteremia On: :16 Request Urine Protein Electrophoresis (UPEP) (01707)Indication: Elevated serum globulin level On: :23 Request METABOLIC PANEL, COMPREHENSIVE (99376)Indication: Hypertension, essential, benign On: 68-Ddy-439582:35 Request LIPID PANEL (28379)Indication: Hypertension, essential, benign On: :34 Request CBC W/AUTO DIFF WBC (79416)Indication: Hypertension, essential, benign On: :34 Request URINALYSIS, W/ MICRO (64496)Indication: Diabetes mellitus type 2, uncontrolled, without complications On: :34 Request MICROALBUMIN: CREATININE RATIO (91445) AND (18450)Indication: Diabetes mellitus type 2, uncontrolled, without complications On: :34 Request TSH (95934)Indication: Diabetes mellitus type 2, uncontrolled, without complications On: :34 Request CALCIFIDIOL (34440) VIT D 25Indication: Vitamin D deficiency, unspecified On: :34 Request CALCIFIDIOL (66158) VIT D 25Indication: Vitamin D deficiency, unspecified On: :30 Request TSH (05003)Indication: Diabetes mellitus type 2, uncontrolled, without complications On: :29 Request URINALYSIS, W/ MICRO (41289)Indication: Hypertension, essential, benign On: :29 Request MICROALBUMIN: CREATININE RATIO (88094) AND (05213)Indication: Hypertension, essential, benign On: :28 Request METABOLIC PANEL, COMPREHENSIVE (06732)Indication: Hypertension, essential, benign On: :28 Request LIPID PANEL (24854)Indication: Hypercholesteremia On: : Request CBC W/AUTO DIFF WBC (92097)Indication: Hypertension, essential, benign On: :28 Request HPV automatic (95236)Indication: Screening for HPV (human papillomavirus) (Renamed from Encounter for screening for human papillomavirus (HPV)) On: 88-Gsr-864574:19 Request Thin prep Pap (08253) (no STD testing)Indication: Encounter for gynecological examination without abnormal finding On: 44-Awx-122617:00 Request CALCIFIDIOL (92823) VIT D 25Indication: Vitamin D deficiency, unspecified On: : Request TSH (54994)Indication: Diabetes mellitus type 2, uncontrolled, without complications On: : Request URINALYSIS, W/ MICRO (81557)Indication: Diabetes mellitus type 2, uncontrolled, without complications On: : Request MICROALBUMIN: CREATININE RATIO (60778) AND (54011)Indication: Diabetes mellitus type 2, uncontrolled, without complications On: : Request METABOLIC PANEL, COMPREHENSIVE (10239)Indication: Diabetes mellitus type 2, uncontrolled, without complications On: : Request LIPID PANEL (35377)Indication: Hypercholesteremia On: : Request CBC W/AUTO DIFF WBC (27162)Indication: Diabetes mellitus type 2, uncontrolled, without complications On: : Request Thin prep Pap (95387) (no STD testing)Indication: Well woman exam On: :21 Request FODCT-JPODBCNJOHO-RWQII (05092)Indication: Fatty liver On: :39 Request PT (Prothrobim Time) (56312)Indication: Fatty liver On: :39 Request CALCIFIDIOL (37542) VIT D 25Indication: Vitamin D deficiency, unspecified On: :38 Request LIPID PANEL (95303)Indication: Hypercholesteremia On: :38 Request TSH (72547)Indication: Diabetes mellitus type II, controlled, with no complications On: :38 Request URINALYSIS, W/ MICRO (12714)Indication: Hypertension, essential, benign On: :38 Request MICROALBUMIN: CREATININE RATIO (22505) AND (26352)Indication: Hypertension, essential, benign On: :38 Request METABOLIC PANEL, COMPREHENSIVE (83632)Indication: Hypertension, essential, benign On: :38 Request CBC W/AUTO DIFF WBC (40938)Indication: Hypertension, essential, benign On: :38 Request CALCIFEDIOL (78635)Indication: Vitamin D deficiency, unspecified On: :52 Request TSH (85138)Indication: Diabetes mellitus type II, controlled, with no complications On: :52 Request URINALYSIS, W/ MICRO (71745)Indication: Hypertension, essential, benign On: :52 Request MICROALBUMIN: CREATININE RATIO (18976) AND (84991)Indication: Hypertension, essential, benign On: :52 Request METABOLIC PANEL, COMPREHENSIVE (19702)Indication: Hypertension, essential, benign On: :52 Request CBC W/AUTO DIFF WBC (30318)Indication: Hypertension, essential, benign On: :52 Request LIPID PANEL (88818)Indication: Hypercholesteremia On: :52 Request FECAL OCCULT HGB ASSAY- tubes sent home (43044)Indication: Well woman exam On: 31-Qtm-10696:30 Request Thin prep Pap (73456)Indication: Well woman exam On: :30 Request Sed Rate Erythrocyte (46950)Indication: Diarrhea On: 57-Znd-440490:22 Request Metabolic Panel, Comprehensive (57085)Indication: Diarrhea On: 42-Hhl-687560:22 Request CBC with manual diff (74353)Indication: Diarrhea On: 75-Ram-297501:22 Request Rapid Strep Test, Office (73651)Indication: Pharyngitis, acute On: :47 Request Urine Protein Electrophoresis (UPEP) (88313)Indication: Abnormal blood chemistry On: :55 Request Serum Protein Electrophoresis (SPEP) (69886)Indication: Abnormal blood chemistry On: :55 Request CALCIFIDIOL (90641) VIT D 25Indication: Vitamin D deficiency, unspecified On: :53 Request Comments: dp om 3-4 months HEPATIC FUNCTION PANEL (85100)Indication: Elevated LFTs On: :36 Request CREATININE CLEARANCE (76871) 24 HOURIndication: Other abnormal glucose On: :32 Request MICROALBUMIN: CREATININE RATIO (09772) AND (54726)Indication: Other abnormal glucose On: :26 Request CALCIFEDIOL (93954)Indication: Diarrhea On: 53-Bqt-737134:16 Request Celiac Disease Antibody Profile (63561) x3 & (88495) X2- gliadin IgA, IgG and reticulin IgA, IgG and tissue transglutaminase IgA.Indication: Diarrhea On: :08 Request LISANDRO CULTURE-STOOL (26102)Indication: Diarrhea On: :06 Request C-DIFFICILE, STOOL (40841)Indication: Diarrhea On: 62-Gxf-415294:06 Request LEUKOCYTE COUNT, FECAL (85609)Indication: Diarrhea On: 96-Ypm-846832:06 Request OCCULT BLOOD FECES SCREEN (27899)Indication: Diarrhea On: 64-Jnw-828654:06 Request OVA & PARASITE DIR SMEAR (07252)Indication: Diarrhea On: 67-Npi-448773:06 Request OVA & PARASITE DIR SMEAR (07666)Indication: Diarrhea On: 78-Byk-617970:42 Request OCCULT BLOOD FECES SCREEN (57199)Indication: Diarrhea On: 12-Qog-209151:42 Request LEUKOCYTE COUNT, FECAL (20702)Indication: Diarrhea On: :42 Request C.Difficile, Stool (38781)Indication: Diarrhea On: 00-Vvv-360468:42 Request LISANDRO CULTURE-STOOL (29723)Indication: Diarrhea On: 36-Aod-969821:42 Request CBC WITH MANUAL DIFF (82235)Indication: Gastroenteritis On: 8-Juo-683888:45 Request Planned Encounters Medical; Well Woman Exam No PAP - On: 30-Jun-2018 9:00 [facility] Chanel Varma DO, DO, Kathleen Planned Procedures Flu Vaccine (Quadrivalent) On: 13-May-2018 Intent 26864Gy: Chanel Varma DO Comments: Lot #[id number]/30/19Site-L dltd, IMDose prefilled syringegiven by: Hector ARIAS.VIS reviewed and ABN signed Chanel Varma DO ELECTROCARDIOGRAM, COMPLETE On: 29-Apr-2018 Intent (ECG) (25470)By: Felicia HERNANDEZ, Comments: NSR NO ACUTE CHG Chanel Felicia DO, Chanel ELECTROCARDIOGRAM, COMPLETE On: 13-Oct-2017 Intent (ECG) (55713)By: Felicia HERNANDEZ, Comments: nsr no acute chg - Chanel Chanel Varma DO SCREENING DIGITAL On: 25-Jun-2017 Intent TOMOSYNTHESIS OF BREAST (40372)By: Chanel Varma DO, DO, Kathleen Aerosol Treatment (91080)By: On: 04-Jun-2017 Intent Jessa Mcintyre LPN Radiology - ChestBy: [place] On: 06-Nov-2016 Intent Spring ANDRADE Aerosol Treatment (95579)By: On: 06-Nov-2016 Intent Spring Swartz CNP Aerosol Treatment (81373)By: On: 01-Nov-2016 Intent Spring Swartz CNP Phenergan Injection, up to 50 On: 11-Oct-2016 Intent mg (J2550)By: Spring Swartz CNP Comments: lot:[id number]: 03/27site/route: LGM/IMamt: 1mLVIS signed when applicableChelsea, RAILWAY TRACTION LINE WORKER E ELECTROCARDIOGRAM, COMPLETE On: 23-Sep-2016 Intent (ECG) (10097)By: Felicia HERNANDEZ, Comments: nsr no acute chg - Chanel Chanel Varma DO Bone Density StudyBy: Felicia On: 20-May-2016 Intent Chanel HERNANDEZ DO, Kathleen BILATERAL MAMMOGRAMS On: 20-May-2016 Intent (08851)By: Chanel Varma DO, DO, Kathleen Toradol Injection, 30 mg On: 15-Mar-2016 Intent (J1885)By: Spring Swartz CNP Comments: 1 ml given im rt hi lot [id number] 05/20/17 MRI CERVICAL SPINE W/O On: 14-Aug-2015 Intent CONTRAST (49928)By: Chanel Varma DO, DO, Kathleen Radiology - Cervical SpineBy: On: 25-Jul-2015 Intent Spring Swartz CNP Toradol Injection, 30 mg On: 24-May-2015 Intent (J1885)By: Spring wSartz CNP Radiology - Shoulder - On: 24-May-2015 Intent LeftBy: Spring Swartz CNP Radiology - Forearm - LeftBy: On: 24-May-2015 Intent Spring Swartz CNP EMGBy: Spring Swartz CNP On: 24-May-2015 Intent Nerve ConductionBy: [place] On: 24-May-2015 Intent Spring ANDRADE Flu Vaccine (Quadrivalent) On: 18-May-2015 Intent 73008Gh: Chanel Varma DO Comments: Lot #[id number]-L dltd, IMDose prefilled syringegiven by:MLong, LPNVIS and ABN signed Chanel Varma DO Ultrasound - GallbladderBy: On: 27-Mar-2015 Intent Chanel Varma DO Comments: attention CBD size-- Chanel HERNANDEZ EKG (01592)By: Felicia HERNANDEZ, On: 22-Mar-2015 Intent Chanel Crow DO Comments: NSR NO ACUTE CHG MAMMOGRAM, SCREENING, BOTH On: 22-Mar-2015 Intent BREAST (67078)By: Chanel Varma DO, DO, Kathleen Anoscopy (78673)By: Felicia On: 10-Oct-2014 Intent Chanel HERNANDEZ DO, Comments: se exam for findings Chanel IMMUNIZ ADMNIN, 1 VAC, On: 19-May-2014 Intent SNGL/COMBO (11509)By: Chanel Varma DO, DO, Kathleen FLU VAC, SPLIT, >3 YEARS, On: 19-May-2014 Intent INTRAMUSC (40555)By: Felicia Comments: lot: [id number]: 02/07/15site/route: Rdel/IMamt:0.5mLVIS signed when applicableChelsea, RAILWAY TRACTION LINE WORKER , Chanel Crow DO EKG (42136)By: Felicia HERNANDEZ, On: 19-May-2014 Intent Chanel Felicia DO, Chanel Comments: nsr no chg when compared to old Ultrasound - LiverBy: Felicia On: 28-Jan-2014 Intent DO, Chanel Felicia DO, Chanel Eprescribed prescriptions On: 31-Dec-2013 Intent (G8553)By: Felicia DO, Chanel Felicia DO, Chanel OtherBy: Felicia DO, Chanel On: 31-Dec-2013 Intent Felicia DO, Chanel Comments: esophagram with 13 mm tablet EKG (17538)By: Felicia HERNANDEZ, On: 14-Jun-2013 Intent Chanel Felicia DO, Chanel Comments: nsr no acute chg Eprescribed prescriptions On: 14-Jun-2013 Intent (G8553)By: Marissa Gomez LPN DXA, BONE DENSITY, AXIAL On: 10-May-2013 Intent SKELETON (89999)By: Comments: dx post menopausal Marissa Gomez LPN MAMMOGRAM, SCREENING, BOTH On: 10-May-2013 Intent BREASTS (77371)By: Jason, Comments: dx breast screening Marissa ARIAS INFUSION, NORMAL SALINE On: 25-Sep-2012 Intent SOLUTION , 1000 CC (Special Coverage Instructions Apply. See MCM: 2049) (J7030)By: Aby Douglas MD HYDRATION IV INFUSION, INIT On: 25-Sep-2012 Intent (57021)By: Aby Douglas MD hida scan with cckBy: Felicia On: 22-Jun-2012 Intent DO, Chanel Felicia DO, Chanel Eprescribed prescriptions On: 18-May-2012 Intent (G8553)By: Marissa Gomez LPN PNEUM VAC ADLT/IMUMNOSPR, On: 24-Jul-2011 Intent SBC/INTRM (00885)By: Felicia Comments: Lot #[id number]/22/12Site-left deltoidDose- 0.5mlgiven by: Harry Siddiqi LPN DO, Chanel Felicia DO, Chanel EKG (67303)By: Felicia HERNANDEZ, On: 24-Jul-2011 Intent Chanel Felicia DO, Chanel Comments: nsr no acute chg- IMMUNIZ ADMNIN, 1 VAC, On: 24-Jul-2011 Intent SNGL/COMBO (27204)By: Chanel Varma DO, DO, Kathleen EKG (71242)By: Felicia HERNANDEZ, On: 21-Sep-2010 Intent Chanel Crow DO Comments: nsr no acute chg TDAP VACCINE >7 IM (35853)By: On: 28-May-2010 Intent Chanel Varma DO Comments: Lot [id number] 9/12Site- R Dltd/IMDose 0.5mlgiven by: JUANA JAQUEZ DO, Kathleen IMMUNIZ ADMNIN, 1 VAC, On: 28-May-2010 Intent SNGL/COMBO (95318)By: Felicia Comments: Lot #[id number]- /11Site- L Dltd/IMDose 0.5mlgiven by: JUANA JAQUEZ DO, Kathleen Fearon DO, Kathleen FLU VAC, SPLIT, >3 YEARS, On: 28-May-2010 Intent INTRAMUSC (30053)By: Chanel Varma DO, DO, Kathleen Inhaler Demonstration On: 14-May-2010 Intent (70506)By: Spring Swartz CNP Pulse Oximetry (59874)By: On: 14-May-2010 Intent Spring Swartz CNP Aerosol Treatment (71353)By: On: 14-May-2010 Intent Spring Swartz CNP DXA, BONE DENSITY, AXIAL On: 18-Jan-2010 Intent SKELETON (28726)By: Chanel Varma DO, DO, Kathleen PHYSICAL THERAPY EVALUATION On: 27-Nov-2009 Intent (37696)By: Spring Swartz CNP Radiology - Knee - Left - On: 27-Nov-2009 Intent Weight BearingBy: Spring Swartz CNP Flu Vaccine, Split IM On: 23-May-2009 Intent (02076)By: Neeru ARIAS, Comments: Lot #[id number]-right deltoidgiven by:CARMELITA Tran INFUSION, NORMAL SALINE On: 28-Dec-2008 Intent SOLUTION , 1000 CC (Special Comments: IV Therapy initiated (Romulo Gomez LPN)22G, 1 inchSite: left a/cTolerated: wellno redness or swelling, no s/s infiltrationB. JUANA Hodges Coverage Instructions Apply. See [facility]: 2048) (J7030)By: Spring Swartz CNP HYDRATION IV INFUSION, INIT On: 28-Dec-2008 Intent (25129)By: Spring Swartz CNP Radiology - Abdomen SeriesBy: On: 14-Jan-2008 Intent Chanel Varma DO, DO, Kathleen INFUSION, NORMAL SALINE On: 14-Jan-2008 Intent SOLUTION , 1000 CC (Special Comments: Lot #:[id number] date:04-19 Amount given:1 liter Route: IVSite given:right anticub Given by: judit Coverage Instructions Apply. See [facility]: 2048) (J7050)By: Chanel Varma DO, DO, Kathleen IV Needle placement On: 14-Jan-2008 Intent (47392)By: Felicia HERNANDEZ, Comments: # 22 placed to right anticubital space without difficulty per Chanel Layne DO IV Infusion (32522)By: Felicia On: 14-Jan-2008 Chanel Thacker DO, DO, [...] finding Hypercholesteremia : DISCONTINUED - LIPID PANEL (16874) Indication: Hypercholesteremia Hypercholesteremia : DISCONTINUED - TSH (26582) Indication: Hypercholesteremia Diabetes mellitus type II, controlled, with no complications : DISCONTINUED - URINALYSIS, AUTOMATED W/ MICRO (38555) Indication: Diabetes mellitus type II, controlled, with no complications Diabetes mellitus type II, controlled, with no complications : DISCONTINUED - MICROALBUMIN: CREATININE RATIO (38957) AND (73674) Indication: Diabetes mellitus type II, controlled, with no complications Diabetes mellitus type II, controlled, with no complications : DISCONTINUED - METABOLIC PANEL, COMPREHENSIVE ([id number]) Indication: Diabetes mellitus type II, controlled, with no complications Diabetes mellitus type II, controlled, with no complications : DISCONTINUED - CBC WITH MANUAL DIFF ([id number]) Indication: Diabetes mellitus type II, controlled, with no complications Vitamin D deficiency, unspecified : DISCONTINUED - Vitamin D Hydroxy ([id number]) Indication: Vitamin D deficiency, unspecified Hypertension, essential, benign : DISCONTINUED - TSH ([id number]) Indication: Hypertension, essential, benign Hypertension, essential, benign : DISCONTINUED - URINALYSIS, AUTOMATED W/ MICRO ([id number]) Indication: Hypertension, essential, benign Hypertension, essential, benign : DISCONTINUED - MICROALBUMIN: CREATININE RATIO ([id number]) AND ([id number]) Indication: Hypertension, essential, benign Hypertension, essential, benign : DISCONTINUED - METABOLIC PANEL, COMPREHENSIVE ([id number]) Indication: Hypertension, essential, benign Hypertension, essential, benign : DISCONTINUED - CBC WITH MANUAL DIFF ([id number]) Indication: Hypertension, essential, benign Hypertension, essential, benign : DISCONTINUED - TSH ([id number]) Indication: Hypertension, essential, benign Hypertension, essential, benign : DISCONTINUED - URINALYSIS, AUTOMATED W/ MICRO ([id number]) Indication: Hypertension, essential, benign Hypertension, essential, benign : DISCONTINUED - MICROALBUMIN: CREATININE RATIO ([id number]) AND ([id number]) Indication: Hypertension, essential, benign Hypertension, essential, benign : DISCONTINUED - METABOLIC PANEL, COMPREHENSIVE ([id number]) Indication: Hypertension, essential, benign Hypertension, essential, benign : DISCONTINUED - LIPID PANEL ([id number]) Indication: Hypertension, essential, benign Hypertension, essential, benign : DISCONTINUED - CBC WITH MANUAL DIFF ([id number]) Indication: Hypertension, essential, benign Cough : How [...] up ER - Reason for hospitalization note: ([facility] [place] [facility] for [facility] h/a [...] Internal Medicine End: 14-Jan-2008 9:00 [facility]
--- OUTSIDE RECORDS SUMMARY | 2018-11-03 11:02 | XMS RPT_ITS ---
:1960 Author Organization OHIP Care Team Providers Name Role Phone Chanel Duarte DO Attending Unavailable Chanel Duarte DO Referring Unavailable Chanel Duarte DO Consulting Unavailable Chanel Duarte Attending Unavailable Felicia Chanel Primary Care Unavailable Felicia Chanel Referring Unavailable Vellanki, Jo Attending Unavailable Vellanki, Jo Referring Unavailable Felicia Chanel Primary Care Unavailable Vellanki, Jo Attending Unavailable Vellanki, Jo Referring Unavailable Felicia Chanel Primary Care Unavailable Vellanki, Jo Attending Unavailable Felicia Chanel Primary Care Unavailable Felicia Chanel Primary Care Unavailable Catalino Murguia Attending Unavailable Vellanki, Jo Attending Unavailable Vellanki, Jo Referring Unavailable Felicia Chanel Primary Care Unavailable Marissa Shepherd SECURITY RESEARCHER-C Consulting Unavailable Chanel Duarte Primary Care Unavailable Damian Hdadad Attending Unavailable PROBLEMS PROBLEMS No Problem Records FoundPROCEDURES PROCEDURES No Procedure Records FoundRESULTS RESULTS SCREENING MAMM (CAD), Observed: 09/01/2018 Status: F Source: [place] 9:38 AM REPOSITORY [facility] Imaging Services [address] [place] [address] SCREENING MAMM (CAD), BILAT MR#: [id number] Acct: [id number] Name: LEATHA ABAD Rep #: [id number] : 1960 F 57 From: Jordy Masters MD PCP: Chanel Duarte DO Status: REG CLI Study: SCREENING MAMM (CAD), BILAT Date of Exam: 09/01/18 Exam# [id number] Ordering Dr: Chanel Duarte DO MAMMOGRAPHY - BILATERAL SCREENING REASON FOR EXAM: Female, 57 years old. Routine annual screening examination. PERTINENT HISTORY: Mother with breast cancer. TECHNIQUE: Digital bilateral breast emmanuel (3D mammographic acquisition) in the CC and MLO projections. 2-D mediolateral oblique (MLO) and craniocaudad (CC) views of both breasts were obtained. CAD: Full Field Digital Mammography with Computer Added Detection was performed. COMPARISON: Comparison is made with prior study dated July 28, 2017 and July 23, 2016 FINDINGS: Breast Composition: There are scattered areas of fibroglandular density. There are no dominant masses or suspicious calcifications. No other significant abnormalities are identified. There has been no significant change since the prior study. BI/SCREENING MAMM (CAD), BILAT IMPRESSION: Stable bilateral screening mammogram. Yearly follow-up mammogram recommended. (A) ASSESSMENT CATEGORY: BIRADS Category 1: Negative. A letter regarding these results will be sent to the patient by the facility within 30 days. Approximately 10% of breast cancers are not detected by mammography. A normal mammogram should not delay biopsy of a clinically suspicious abnormality. [id number] Electronically Signed: Jordy Masters MD at 11:17 EST Tel [phone], Service support , CC: Chanel Duarte DO Optical Manufacturing Technician: Signed DEXA BONE DENSITY Observed: 09/01/2018 Status: F Source: [place] STUDY 9:38 AM REPOSITORY [facility] Imaging Services [address] [place] [address] Dexa Bone Density Study MR#: [id number] Acct: [id number] Name: LEATHA ABAD Rep #: [id number] : 1960 F 57 From: Jordy Masters MD PCP: Chanel Duarte DO Status: REG CLI Study: Dexa Bone Density Study Date of Exam: 09/01/18 Exam# [id number] Ordering Dr: Chanel Duarte DO STUDY: DUAL ENERGY X-RAY ABSORPTIOMETRY / DXA REASON FOR EXAM: Female, 57 years old. Early menopause. Loss of height. TECHNIQUE: Bone Mineral Density (BMD) measurements of lumbar spine and bilateral hips were obtained. COMPARISON: Comparison is made with prior study dated July 23, 2016. FINDINGS: Lumbar Spine (L1-L4): g/cm2 (1.234) / T-score (0.5) / Z-score (1.5) Findings are suggestive of normal bone density with a low fracture risk. Left Femur Total: g/cm2 (1.006) / T-score (0.0) / Z-score (0.8) Left Femoral Neck: g/cm2 (0.999) / T-score (-0.3) / Z- score (0.9) Right Femur Total: g/cm2 (0.935) / T-score (-0.6) / Z- score (0.3) Right Femoral Neck: g/cm2 (0.839) / T-score (-1.4) / Z-score (-0.3) The T-Scores on the most recent prior examination were: Lumbar Spine (L1-L4): There has been improvement of bone density since the previous examination. Left Femur Total: which represents an improvement of 2.4%. Right Femur Total: which represents an improvement of 1.6%. BD/Dexa Bone Density Study IMPRESSION: The patient is considered osteopenic as outlined below according to World Y[place] Organization (WHO) criteria with a low fracture risk. There has been improvement of bone density since the previous examination. Reference Information: The T-score is the number of standard deviations above or below the standard which is normal for young adults at their peak bone mineral density. The World Health Organization (WHO) interprets the T-scores as follows: Above -1 Normal bone density Between -1 and -2.5 Osteopenia Equal to / or below -2.5 Osteoporosis As a practical clinical guideline, osteopenia may be graded as follows: Mild -1 through [...] http://www.nof.org Electronically Signed: Jordy Masters MD at 11:22 EST Tel [phone], Service support , CC: Chanel Duarte DO Optical Manufacturing Technician: Signed EMERGENCY DEPARTMENT Observed: 04/22/2018 Status: F Source: [place] SUMMARY 3:58 AM REPOSITORY [facility] Medical Records Department [address] [place] [address] Emergency Department Summary 04/22/18 0136 MR#: [id number] Acct: [id number] Name: LEATHA ABAD Rep #: [id number] : 1960 57 From: Damian Haddad MD PCP: Chanel Duarte DO Status: DEP ER - ER Visit [...] in the emesis or the diarrhea. She states symptoms seem to chery for about a [...] reactive, extraocular muscles intact Neck, supple, no lymphadenopathy Heart: Regular rate and rhythm Respiratory: No distress, clear bilaterally Abdomen: Soft, mildly tender in the midepigastric area in the left upper quadrant without rebound or guarding, nondistended, no peritoneal signs Back: Nontender Extremities: Nontender, [...] was redosed and she had marked improvement. Screening labs were obtained were unremarkable. I obtained [...] be started on antiemetics and antispasmodics. She will be discharged home return with any worsening symptoms. Treatment Plan: [] Disposition: Discharge Impression: Gastroenteritis This note was generated with [employer] dictation software. It may contain incorrect words, spelling, and punctuation that were not noted in review of the chart prior to signing ED Disposition - Plan for ED Patient: Disposition: Home or Assisted Living Chief Complaint: Nausea/Vomiting/Diarrhea Instructions: ED Gastroenteritis Viral Prescriptions: proMETHazine tablet [Phenergan] 25 mg PO Q6H PRN PRN #10 tab PRN Reason: Nausea Dicyclomine HCl [Bentyl] 20 mg PO TIDAC #20 cap Vancomcyin 125mg/5mL PO Liquid 125 mg PO Q6 #200 ml Referrals: Chanel Duarte, [Primary Care Provider] - What to do if you have Problems For any increased pain, shortness of breath, bleeding, nausea or vomiting, chest pain, or any unexpected problems, contact your Primary Care Provider. Call [facility] ([phone]) or report to the closest Emergency Room. Call 911 if necessary. 04/22/18 0358 <Electronically signed by Damian Haddad MD> Date Damian Haddad MD Cosigner Signature (If Indicated): Date CC: Chanel Duarte DO Observed: 04/22/2018 Status: F Source: [place] REYES (MOLECULAR) 1:51 AM REPOSITORY Is the patient receiving laxatives? N New/unexplained onset of 3 or more stools in past 24 hrs? Y Cdiff-Molecular Normal Reference Range = Negative C. Diff DNA Negative- No toxigenic C. Diff DNA Detected NAAT METHOD Testing was performed using nucleic acid amplification Performed By: #### M100.6796 #### [facility] [address] [place], [address] Observed: 04/22/2018 Status: F Source: [place] ENTERIC PATHOGEN 1:51 AM PANEL STOOL REPOSITORY Has pt arrived? Y EP PANEL STOOL Normal Reference Range = Not Detected Not detected for Campylobacter group, Salmonella species, Shigella species, Vibrio Group, Yersinia enterocolitica, EHEC (Shiga Toxin 1, Shiga Toxin 2), Norovirus Gl/Gll, and Rotavirus A. Other common stool pathogens are not detected on this panel include: Aeromonas/Plesiomonas or parasites. Order testing for these organisms separately if suspected. This is an amplified DNA test which makes it both specific and sensitive. CAMPYLOBACTER Not Detected Salmonella Not Detected Shigella sp. Not Detected Shiga Toxin Not Detected Yersinia Not Detected VIBRIO Not Detected Norovirus Not Detected Rotavirus Not Detected Performed By: #### M100.637 #### [facility] [address] [facility] [address] [place], [place], [address] ABDOMEN/PELVIS W IV CONT Observed: 04/22/2018 Status: F Source: [place] ONLY 1:04 AM REPOSITORY [facility] Imaging Services [address] [place] [address] Abdomen/Pelvis W IV Cont ONLY MR#: [id number] Acct: [id number] Name: LEATHA ABAD Rep #: [id number] : 1960 F 57 From: David Giang MD PCP: Chanel Duarte DO Status: REG ER Study: Abdomen/Pelvis W IV Cont ONLY Date of Exam: 04/22/18 Exam# [id number] Ordering Dr: Damian Haddad MD STUDY: CT ABDOMEN AND PELVIS WITH [...] of Isovue 300 contrast was administered. Sagittal and coronal images were reconstructed. Individualized dose optimization techniques were used for this CT. COMPARISON: None. FINDINGS: The lung bases are clear. The liver is normal. No dilated intrahepatic biliary radicles. A normal gallbladder is not seen. A small 1.4 cm cystic structures in the gallbladder fossa. The spleen is normal. The pancreas is normal. Both adrenals are normal. The kidneys are normal with no masses, calculi or hydronephrosis The stomach is normal. There is no bowel distention, acute appendicitis or diverticulitis. No constricting lesions are seen in large bowel. The abdominal wall is intact with no hernias. There is no ascites or any free intraperitoneal air. No indication of epiploic appendagitis The vascular structures in the retroperitoneum are normal. There is no retrocrural, retroperitoneal or mesenteric adenopathy. The bones and joints are normal. The urinary bladder is normal.--The uterus is normal.. There is no inguinal or pelvic adenopathy. There is no inguinal hernia. . CT/Abdomen/Pelvis W IV Cont ONLY IMPRESSION: No acute findings in the abdomen or pelvis. Specifically there is no acute appendicitis or diverticulitis Electronically Signed: David Giang, at 1:57 EDT Tel , Service support , CC: Chanel Duarte DO; Damian Haddad MD Optical Manufacturing Technician: Signed CBC W/DIFF, AUTOMATED Collected: 04/22/2018 Status: F Source: [place] 1:00 AM REPOSITORY TYPE CODE TESTS RESULT OUT OF RANGE REFERENCE UNITS LAB L100.1000 4.4-11.0 K/mm3 Normal WBC 9.3 LAB L100.1200 4.2-5.4 M/mm3 Normal RBC 4.95 LAB L100.1300 12.0-15.0 g/dl High HGB 15.3 LAB L100.1400 37-47 % Normal HCT 45.1 LAB L100.1500 81-99 fL Normal MCV 91.1 LAB L100.1600 27.0-32.0 pg Normal MCH 30.9 LAB L100.1700 32-36 g/gl Normal MCHC 33.9 LAB L100.1810 11.6-14.6 % Normal RDW CV 13.0 LAB L100.1820 35.1-43.9 fl Normal RDW SD 42.8 LAB L100.1900 150-450 K/mm3 Normal PLT 312 LAB L100.2000 6.2-12.0 fl Normal MPV 9.5 LAB L100.2100 47-70 % Normal NEUT% 63.1 LAB L100.2200 19-41 % Normal LY% 25.1 LAB L100.2300 0-10 % Normal MONO% 8.9 LAB L100.2400 0-5 % Normal EO% 2.6 LAB L100.2500 0-1 % Normal BASO% 0.1 LAB L100.2550 0.0-0.9 % Normal IM GRAN % 0.200 Result Comment: IG% - Immature Granulocytes (promyelocytes, myelocytes and metamyelocytes) > 1% indicates that a LEFT SHIFT is Present. LAB L100.2620 2.0-7.7 X10 3/uL Normal Absolute Neut 5.9 LAB L100.2720 0.83-4.51 X10 3/ul Normal Absolute Lymph 2.33 Performed By: #### L100.0100 #### [facility] [address] [place], [place], [address] COMPREHENSIVE METABOLIC Collected: 04/22/2018 Status: F Source: [facility] 1:00 AM REPOSITORY TYPE CODE TESTS RESULT OUT OF RANGE REFERENCE UNITS LAB L501.0100 74-106 mg/dL High GLU 214 Result Comment: Glucose result greater than or equal to 200 mg/dL suggests DIABETES MELLITUS per A.D.A. criteria. Please note revised GLUCOSE reference range effective 2017. LAB L501.1000 7-18 mg/dL Normal BUN 15 LAB L501.1100 0.55-1.02 mg/dL High CREAT,SERUM 1.27 Result Comment: The validity of the calculated GFR AND GFRAA in patients over 70 years has not been determined. Clinical correlation is essential. LAB L501.1110 >60 mL/min Low EST GFR 46 Result Comment: Non- GFR Calc LAB L501.1115 >60 mL/min Low EST GFR - AA 56 Result Comment: GFR Calc LAB L501.1255 ml/min Normal Estimated CRCL 46.95 LAB L501.1300 10-20 RATIO Normal BUN/CRE 11.8 LAB L501.1500 6.4-8. g/dL Normal 2 T PROT 8.1 LAB L501.1800 3.2-5. g/dL Normal 0 ALB 3.5 LAB L501.1950 2.2-4. g/dL High 2 GLOB 4.6 LAB L501.2000 0.9-2. RATIO Low 4 A/G 0.8 LAB L501.2200 8.5-10 mg/dL Normal .1 CA 8.8 LAB L501.4100 15-37 U/L Normal AST 24 LAB L501.4305 45-117 U/L Normal ALK P 73 LAB L501.4405 13-56 U/L Normal ALT 29 LAB L501.4600 0.20-1 mg/dL Normal .00 T BILI 0.50 LAB L501.5300 136-14 mmol/L Normal 5 NA 138 LAB L501.5600 3.5-5. mmol/L Low 1 K 3.4 LAB L501.5900 98-107 mmol/L Normal CL 104 LAB L501.6100 21.0-3 mmol/L Normal 2.0 CO2 24.0 LAB L501.6200 5-15 Normal GAP 10 Performed By: #### L500.4050 #### [facility] [address] [place], [place], [address] CBC W/DIFF, AUTOMATED Collected: 04/17/2018 Status: F Source: [place] 11:58 AM REPOSITORY Order Comment: DR. HUTCHISON ORDERED CMP CBCD MARISSA SHEPHERD ORDERED CBCD PT TYPE CODE TESTS RESULT OUT OF RANGE REFERENCE UNITS LAB L100.1000 4.4-11.0 K/mm3 Normal WBC 6.5 LAB L100.1200 4.2-5.4 M/mm3 Low RBC 4.00 LAB L100.1300 12.0-15.0 g/dl Normal HGB 12.0 LAB L100.1400 37-47 % Low HCT 36.9 LAB L100.1500 81-99 fL Normal MCV 92.3 LAB L100.1600 27.0-32.0 pg Normal MCH 30.0 LAB L100.1700 32-36 g/gl Normal MCHC 32.5 LAB L100.1810 11.6-14.6 % Normal RDW CV 12.6 LAB L100.1820 35.1-43.9 fl Normal RDW SD 40.9 LAB L100.1900 150-450 K/mm3 Normal PLT 278 LAB L100.2000 6.2-12.0 fl Normal MPV 9.7 LAB L100.2100 47-70 % Normal NEUT% 48.1 LAB L100.2200 19-41 % Normal LY% 40.8 LAB L100.2300 0-10 % Normal MONO% 7.8 LAB L100.2400 0-5 % Normal EO% 2.8 LAB L100.2500 0-1 % Normal BASO% 0.3 LAB L100.2550 0.0-0.9 % Normal IM GRAN % 0.200 Result Comment: IG% - Immature Granulocytes (promyelocytes, myelocytes and metamyelocytes) > 1% indicates that a LEFT SHIFT is Present. LAB L100.2620 2.0-7.7 X10 3/uL Normal Absolute Neut 3.1 LAB L100.2720 0.83-4.51 X10 3/ul Normal Absolute Lymph 2.63 Performed By: #### L100.0100 #### [facility] [address] [place], [address] COMPREHENSIVE METABOLIC Collected: 04/17/2018 Status: F Source: [facility] 11:58 AM REPOSITORY Order Comment: DR. HUTCHISON ORDERED CMP CBCD MARISSA SHEPHERD ORDERED CBCD PT TYPE CODE TESTS RESULT OUT OF RANGE REFERENCE UNITS LAB L501.0100 74-106 mg/dL High GLU 153 Result Comment: Fasting Glucose result greater than or equal to 126 mg/dL suggests DIABETES MELLITUS per A.D.A. criteria. Please note revised GLUCOSE reference range effective 2017. LAB L501.1000 7-18 mg/dL Normal BUN 12 LAB L501.1100 0.55-1.02 mg/dL High CREAT,SERUM 1.14 Result Comment: The validity of the calculated GFR AND GFRAA in patients over 70 years has not been determined. Clinical correlation is essential. LAB L501.1110 >60 mL/min Low EST GFR 52 Result Comment: Non- GFR Calc LAB L501.1115 >60 mL/min Normal EST GFR - AA 63 Result Comment: GFR Calc LAB L501.1300 10-20 RATIO Normal BUN/CRE 10.5 LAB L501.1500 6.4-8.2 g/dL T Normal PROT 7.8 LAB L501.1800 3.2-5.0 g/dL Normal ALB 3.5 LAB L501.1950 2.2-4.2 g/dL High GLOB 4.3 LAB L501.2000 0.9-2.4 RATIO Low A/G 0.8 LAB L501.2200 8.5-10.1 mg/dL CA Normal 9.0 LAB L501.4100 15-37 U/L Normal AST 33 LAB L501.4305 45-117 U/L Normal ALK P 64 LAB L501.4405 13-56 U/L Normal ALT 37 LAB L501.4600 0.20-1.00 mg/dL T Normal BILI 0.60 LAB L501.5300 136-145 mmol/L NA Normal 141 LAB L501.5600 3.5-5.1 mmol/L K Normal 3.9 LAB L501.5900 98-107 mmol/L CL Normal 105 LAB L501.6100 21.0-32.0 mmol/L Normal CO2 27.0 LAB L501.6200 5-15 Normal GAP 9 Performed By: #### L500.4050 #### [facility] [address] [place], [place], [id number] PROTHROMBIN TIME W/INR Collected: 04/17/2018 Status: F Source: [place] 11:58 AM REPOSITORY Order Comment: DR. HUTCHISON ORDERED CMP CBCD MARISSA SHEPHERD ORDERED CBCD PT TYPE CODE TESTS RESULT OUT OF RANGE REFERENCE UNITS LAB L300.4150 11.7-14.9 SECONDS Normal PROTIME 13.5 LAB L300.4200 Normal INR 1.0 Performed By: #### L300.3900 #### [facility] [address] [place], [address] EMERGENCY DEPARTMENT Observed: 02/21/2018 Status: F Source: [place] SUMMARY 11:03 PM REPOSITORY [facility] Medical Records Department [address] [place] [address] Emergency Department Summary 02/21/18 1822 MR#: [id number] Acct: [id number] Name: LEATHA ABAD Rep #: [id number] : 1960 57 From: Catalino Murguia MD PCP: Chanel Duarte DO Status: DEP ER - ER Visit Summary Date of Service: 02/21/18 Chief Complaint: Headache History of Present Illness: The patient is a 57 F history of prior migraine headaches also diet-controlled Beatties. Patient also has psoriatic arthritis. She is on no blood thinners. States she started getting a headache gradual onset today at noon [...] primarily frontal in her forehead. He does have light sensitivity. No visual change. No neurological symptoms. No speech change. No numbness or weakness either upper or lower extremities. She has never had any family history or personal history of intracranial bleeds or brain surgery. She has had prior cervical disc surgery. Physical Examination: Well-appearing middle-age female. Initial blood pressure 192/116. Afebrile. Pulse ox 9 9% on room air. She is seated in a darkened room. She is in no distress. H EENT exam atraumatic. Pupils round reactive light. No facial droop. Normal speech. No signs of trauma. Neck nontender no meningismus. Trachea midline. Able to touch chin to chest. Lungs clear to auscultation bilaterally. Heart regular rate and rhythm no murmur. Abdomen soft nontender. She is moving all 4 extremities. They are neurovascularly intact. Bilateral 5 out of 5 commercial finance manager strength. Bilateral dorsi plantar flexion. Fingertip to nose heel oneill all within normal limits. Normal sensation. Back exam unremarkable. Neurologic exam normal. NIH is 0. No focal motor or sensory deficits. Test Results: CAT scan of the brain without contrast Emergency Department Course and Treatment: Patient treated with IV Toradol and Zofran. Treatment Plan: [] Disposition: [] Impression: Acute cephalgia Acute hypertension This note was generated with Market6 dictation software. It may contain incorrect words, spelling, and punctuation that were not noted in review of the chart prior to signing ED Disposition - Plan for ED Patient: Chief Complaint: Headache Referrals: Chanel Duarte DO [Primary Care Provider] - What to do if you have Problems For any increased pain, shortness of breath, bleeding, nausea or vomiting, chest pain, or any unexpected problems, contact your Primary Care Provider. Call [facility] ([phone]) or report to the closest Emergency Room. Call 911 if necessary. 02/21/18 2303 <Electronically signed by Catalino Murguia MD> Date Catalino Murguia MD Cosigner Signature (If Indicated): Date CC: Chanel Duarte DO DISCHARGE INSTRUCTION Observed: 02/21/2018 Status: F Source: [place] 11:03 PM REPOSITORY [facility] Medical Records Department [address] [place] [address] Discharge Instruction 02/21/18 1944 MR#: [id number] Acct: [id number] Name: JENNIFFERLEATHA Joy Rep #: [id number] : 1960 57 From: Catalino Murguia MD PCP: Chanel Duarte DO Status: [facility] ED Disposition - Plan for ED Patient: Disposition: Home or Assisted Living Chief Complaint: Headache Instructions: ED Cephalgia Unspecified Referrals: Chanel Duarte DO [Primary Care Provider] - 1-2 Weeks Additional Instructions: Log your blood pressures twice daily. Follow-up with Dr. Flores your primary care physician in the next 1-2 weeks and she can go over your blood pressure readings with you and decide if you need to be started on any occasion or not. Tylenol for headaches. Return if feeling a lot worse. Developed fever. Or worsening headache. What to do if you have Problems For any increased pain, shortness of breath, bleeding, nausea or vomiting, chest pain, or any unexpected problems, contact your Primary Care Provider. Call [facility] ([phone]) or report to the closest Emergency Room. Call 911 if necessary. 02/21/18 4543 <Electronically signed by Catalino Murguia MD> Date Catalino Murguia MD Cosigner Signature (If Indicated): Date CC: Chanel Duarte DO BASIC METABOLIC Collected: 02/21/2018 Status: F Source: [facility] PROFILE ([facility]) 6:35 PM REPOSITORY TYPE CODE TESTS RESULT OUT OF RANGE REFERENCE UNITS LAB L501.0100 74-106 mg/dL High GLU 203 Result Comment: Glucose result greater than or equal to 200 mg/dL suggests DIABETES MELLITUS per A.D.A. criteria. Please note revised GLUCOSE reference range effective 2017. LAB L501.1000 7-18 mg/dL Normal BUN 15 LAB L501.1100 0.55-1.02 mg/dL High CREAT,SERUM 1.08 Result Comment: The validity of the calculated GFR AND GFRAA in patients over 70 years has not been determined. Clinical correlation is essential. LAB L501.1110 >60 mL/min Low EST GFR 55 Result Comment: Non- GFR Calc LAB L501.1115 >60 mL/min Normal EST GFR - AA 67 Result Comment: GFR Calc LAB L501.1255 ml/min Normal Estimated CRCL 55.22 LAB L501.1300 10-20 RATIO Normal BUN/CRE 13.9 LAB L501.2200 8.5-10 mg/dL Normal .1 CA 9.3 LAB L501.5300 136-14 mmol/L Normal 5 NA 142 LAB L501.5600 3.5-5. mmol/L Normal 1 K 3.9 LAB L501.5900 98-107 mmol/L Normal CL 104 LAB L501.6100 21.0-3 mmol/L Normal 2.0 CO2 29.0 LAB L501.6200 5-15 Normal GAP 9 Performed By: #### L500.2500 #### [facility] [address] [place], [address] BRAIN/HEAD WITHOUT Observed: 02/21/2018 Status: F Source: [place] CONTRAST 6:22 PM REPOSITORY [facility] Imaging Services [address] [place] [address] Brain/Head without Contrast MR#: [id number] Acct: [id number] Name: LEATHA ABAD Rep #: [id number] : 1960 F 57 From: Levi Castellon MD PCP: Chanel Duarte DO Status: REG ER Study: Brain/Head without Contrast Date of Exam: 02/21/18 Exam# [id number] Ordering Dr: Catalino Murguia MD STUDY: CT BRAIN WITHOUT CONTRAST REASON FOR EXAM: Female, 57 years old. Headache. Hypertension. RADIATION DOSAGE (If Supplied By Facility): CTDIvol = ( 44.99 ) mGy, DLP = ( 779.24 ) mGycm TECHNIQUE: Transaxial CT imaging of the brain was performed without administration of intravenous contrast material. Individualized dose optimization techniques were used for this CT. COMPARISON: None. FINDINGS: There is no acute bleed or infarct. There are normal white matter tracts. The ventricles are normal in configuration. There is no hydrocephalus. The visualized paranasal sinuses are clear. The mastoid air cells are well aerated. There is no skull fracture. CT/Brain/Head without Contrast IMPRESSION: No acute intracranial abnormality. Electronically Signed: Levi Castellon, at 20:42 EDT Tel , Service support , CC: Catalino Murguia MD; Chanel Duarte DO Optical Manufacturing Technician: Signed BEDSIDE GLUCOSE Collected: 02/21/2018 Status: F Source: [place] 6:11 PM REPOSITORY TYPE CODE TESTS RESULT OUT OF REFERENCE UNITS RANGE LAB L501.080 70-110 mg/dL High BEDSIDE GLU 203 Result Comment: MANAGEMENT OF PATIENT CARE PER NURSING PROTOCOL Performed By: #### L501.080 #### [facility] Point of Care [address] [place], [place] [address] CBC W/DIFF, AUTOMATED Collected: 11/28/2017 Status: F Source: [place] 2:23 PM REPOSITORY TYPE CODE TESTS RESULT OUT OF RANGE REFERENCE UNITS LAB L100.1000 4.4-11.0 K/mm3 Normal WBC 6.9 LAB L100.1200 4.2-5.4 M/mm3 Normal RBC 4.39 LAB L100.1300 12.0-15.0 g/dl Normal HGB 12.6 LAB L100.1400 37-47 % Normal HCT 39.3 LAB L100.1500 81-99 fL Normal MCV 89.5 LAB L100.1600 27.0-32.0 pg Normal MCH 28.7 LAB L100.1700 32-36 g/gl Normal MCHC 32.1 LAB L100.1810 11.6-14.6 % High RDW CV 16.2 LAB L100.1820 35.1-43.9 fl High RDW SD 52.2 LAB L100.1900 150-450 K/mm3 Normal PLT 291 LAB L100.2000 6.2-12.0 fl Normal MPV 9.4 LAB L100.2100 47-70 % Normal NEUT% 48.2 LAB L100.2200 19-41 % Normal LY% 41.0 LAB L100.2300 0-10 % Normal MONO% 8.7 LAB L100.2400 0-5 % Normal EO% 1.4 LAB L100.2500 0-1 % Normal BASO% 0.4 LAB L100.2550 0.0-0.9 % Normal IM GRAN % 0.300 Result Comment: IG% - Immature Granulocytes (promyelocytes, myelocytes and metamyelocytes) > 1% indicates that a LEFT SHIFT is Present. LAB L100.2620 2.0-7.7 X10 3/uL Normal Absolute Neut 3.3 LAB L100.2720 0.83-4.51 X10 3/ul Normal Absolute Lymph 2.83 Performed By: #### L100.0100 #### [facility] [place] [facility] [address] [place], [address] COMPREHENSIVE METABOLIC Collected: 11/28/2017 Status: F Source: [facility] 2:23 PM REPOSITORY TYPE CODE TESTS RESULT OUT OF RANGE REFERENCE UNITS LAB L501.0100 74-106 mg/dL High GLU 263 Result Comment: Glucose result greater than or equal to 200 mg/dL suggests DIABETES MELLITUS per A.D.A. criteria. Please note revised GLUCOSE reference range effective 2017. LAB L501.1000 7-18 mg/dL Normal BUN 14 LAB L501.1100 0.55-1.02 mg/dL High CREAT,SERUM 1.11 Result Comment: The validity of the calculated GFR AND GFRAA in patients over 70 years has not been determined. Clinical correlation is essential. LAB L501.1110 >60 mL/min Low EST GFR 54 Result Comment: Non- GFR Calc LAB L501.1115 >60 mL/min Normal EST GFR - AA 65 Result Comment: GFR Calc LAB L501.1300 10-20 RATIO Normal BUN/CRE 12.6 LAB L501.1500 6.4-8.2 g/dL T Normal PROT 7.9 LAB L501.1800 3.2-5.0 g/dL Normal ALB 3.5 LAB L501.1950 2.2-4.2 g/dL High GLOB 4.4 LAB L501.2000 0.9-2.4 RATIO Low A/G 0.8 LAB L501.2200 8.5-10.1 mg/dL CA Normal 9.1 LAB L501.4100 15-37 U/L Normal AST 18 LAB L501.4305 45-117 U/L Normal ALK P 61 LAB L501.4405 13-56 U/L Normal ALT 26 LAB L501.4600 0.20-1.00 mg/dL T Normal BILI 0.30 LAB L501.5300 136-145 mmol/L NA Normal 140 LAB L501.5600 3.5-5.1 mmol/L K Normal 3.7 LAB L501.5900 98-107 mmol/L CL Normal 102 LAB L501.6100 21.0-32.0 mmol/L Normal CO2 29.0 LAB L501.6200 5-15 Normal GAP 9 Performed By: #### L500.4050 #### [facility] [place] [facility] [address] [address] [place], [place], [id number] SYNOVIAL FLUID RBC, Collected: 09/25/2017 Status: F Source: [facility] 12:43 PM REPOSITORY TYPE CODE TESTS RESULT OUT OF RANGE REFERENCE UNITS LAB L200.5050 0.000-0.000 10 3 uL High SYN Tot 12.[address] Result Comment: This is the Total Number of Nucleated Cell Types in the Body Fluid. LAB L200.5100 0 10 6/uL High SYNOVIAL RBC 0.002 LAB L200.5200 0.000-0.002 10 3uL High SYNOVIAL WBC 12.0580 LAB L200.5260 % SYBF PMN Normal WBC% 64.4 LAB L200.5270 10 3/ul SYBF PMN Normal WBC# 8.142 LAB L200.5280 % SYBF MN Normal WBC% 35.6 LAB L200.5800 PATH Normal COM/SYFL May follow LAB L200.5300 0-25 % High NEUTROPHIL 85 LAB L200.5400 % LYMPH Normal 12 LAB L200.5500 % MONO Normal 3 LAB L200.4600 SYNOVIAL Normal SOURCE R KNEE LAB L200.4900 Pale Yellow SYNOVIAL Normal COLOR Yellow LAB L200.5000 CLEAR SYNOVIAL Normal ELISEO. Cloudy Performed By: #### L200.0400, L200.4175 #### [facility] [place] [facility] [address] [place], [place], [id number] CRYSTALS, BODY FLUID Collected: 09/25/2017 Status: C Source: [facility] 12:43 PM REPOSITORY TYPE CODE TESTS RESULT OUT OF RANGE REFERENCE UNITS LAB L200.4200 Normal CALCIUM CRYSTALS/BF PYROPHOS LAB L200.4225 Normal SYNOVIAL SOURCE/BF LAB L200.6020 Normal PATH Reviewed REV Result Comment: Negative for malignant cells. Acute inflammation. A few crystals are oted (mixture of nondescript and calcium pyrophosphate). Clinical correlation necessary. Michelet Bills M.D. 09/26/17 AMENDED REPORT 09/26/17 1011 PATH REV previously reported as: Will follow Performed By: #### L200.0400, L200.4175 #### [facility] [place] [facility] [address] [place], [address] Observed: 09/25/2017 Status: F Source: [facility] CULTURE, BODY FLUID 12:43 PM REPOSITORY List Antibiotics Last 48 Hours? UNK List Antibiotics to be Started? UNK Comments: RIGHT KNEE Gram Stain Centrifuged Specimen? Culture performed on centrifuged specimen Gram Stain 3+ White Blood Cells No organisms seen Body Fluid Cult NO GROWTH IN 14 DAYS Cult, Anaerobic No growth in 5 days. Performed By: #### M100.1300 #### [facility] [place] [facility] [address] [place], [address] CBC W/DIFF, AUTOMATED Collected: 09/15/2017 Status: F Source: [facility] 11:51 AM REPOSITORY TYPE CODE TESTS RESULT OUT OF RANGE REFERENCE UNITS LAB L100.1000 4.4-11.0 K/mm3 Normal WBC 10.5 LAB L100.1200 4.2-5.4 M/mm3 Normal RBC 4.54 LAB L100.1300 12.0-15.0 g/dl Normal HGB 12.3 LAB L100.1400 37-47 % Normal HCT 39.8 LAB L100.1500 81-99 fL Normal MCV 87.7 LAB L100.1600 27.0-32.0 pg Normal MCH 27.1 LAB L100.1700 32-36 g/gl Low MCHC 30.9 LAB L100.1810 11.6-14.6 % Normal RDW CV 13.0 LAB L100.1820 35.1-43.9 fl Normal RDW SD 41.0 LAB L100.1900 150-450 K/mm3 Normal PLT 405 LAB L100.2000 6.2-12.0 fl Normal MPV 9.1 LAB L100.2100 47-70 % Normal NEUT% 67.3 LAB L100.2200 19-41 % Normal LY% 24.8 LAB L100.2300 0-10 % Normal MONO% 6.6 LAB L100.2400 0-5 % Normal EO% 0.8 LAB L100.2500 0-1 % Normal BASO% 0.3 LAB L100.2550 0.0-0.9 % Normal IM GRAN % 0.200 Result Comment: IG% - Immature Granulocytes (promyelocytes, myelocytes and metamyelocytes) > 1% indicates that a LEFT SHIFT is Present. LAB L100.2620 2.0-7.7 X10 3/uL Normal Absolute Neut 7.0 LAB L100.2720 0.83-4.51 X10 3/ul Normal Absolute Lymph 2.59 Performed By: #### L100.0100 #### [facility] [place] [facility] [address] [place], [address] COMPREHENSIVE METABOLIC Collected: 09/15/2017 Status: F Source: [facility] 11:51 AM REPOSITORY TYPE CODE TESTS RESULT OUT OF RANGE REFERENCE UNITS LAB L501.0100 74-106 mg/dL High GLU 142 Result Comment: Fasting Glucose result greater than or equal to 126 mg/dL suggests DIABETES MELLITUS per A.D.A. criteria. LAB L501.1000 7-18 mg/dL Normal BUN 13 LAB L501.1100 0.55-1.02 mg/dL High CREAT,SERUM 1.13 Result Comment: The validity of the calculated GFR AND GFRAA in patients over 70 years has not been determined. Clinical correlation is essential. LAB L501.1110 >60 mL/min Low EST GFR 53 Result Comment: Non- GFR Calc LAB L501.1115 >60 mL/min Normal EST GFR - AA 64 Result Comment: GFR Calc LAB L501.1300 10-20 RATIO Normal BUN/CRE 11.5 LAB L501.1500 6.4-8.2 g/dL High T PROT 9.0 LAB L501.1800 3.2-5.0 g/dL Normal ALB 3.4 LAB L501.1950 2.2-4.2 g/dL High GLOB 5.6 LAB L501.2000 0.9-2.4 RATIO Low A/G 0.6 LAB L501.2200 8.5-10.1 mg/dL CA Normal 9.3 LAB L501.4100 15-37 U/L Low AST 14 LAB L501.4305 45-117 U/L Normal ALK P 83 LAB L501.4405 13-56 U/L Normal ALT 16 Result Comment: Please note revised ALT reference range effective 2017. LAB L501.4600 0.20-1.00 mg/dL Normal T BILI 0.30 LAB L501.5300 136-145 mmol/L Low NA 135 LAB L501.5600 3.5-5.1 mmol/L Normal K 4.0 LAB L501.5900 98-107 mmol/L Normal CL 100 LAB L501.6100 21.0-32.0 mmol/L Normal CO2 26.0 LAB L501.6200 5-15 Normal GAP 9 Performed By: #### L500.4050 #### [facility] [place] [facility] [address] [place], [address] KNEE 4 OR MORE Observed: 09/15/2017 Status: F Source: [facility] VIEWS 11:50 AM REPOSITORY [facility] Imaging Services [address] [place] [address] Knee 4 or More Views MR#: [id number] Acct: [id number] Name: LEATHA ABAD Rep #: [id number] : 1960 F 56 From: Jason Ramirez PCP: Chanel Duarte DO Status: REG CLI Study: Knee 4 or More Views Date of Exam: 09/15/17 Exam# [id number] Ordering Dr: Jo Hutchison MD STUDY: X-RAY - RIGHT KNEE REASON FOR EXAM: Female, 56 years old. Psoriatic arthropathy TECHNIQUE: 4 weightbearing view(s) of the knee. COMPARISON: None. FINDINGS: Normal visualized distal femur. Normal visualized proximal tibia and fibula. Normal proximal tibiofibular articulation. Superior patellar osteophyte. Normal medial femorotibial compartment. Normal lateral femorotibial compartment. Normal patellofemoral articulation. There is a soft tissue prominence in the suprapatellar region suggesting a small volume joint effusion. The soft tissue structures are unremarkable. RAD/Knee 4 or More Views IMPRESSION: Degenerative arthrosis. Small suprapatellar joint effusion. No fracture or dislocation. Electronically Signed: Jason Ramirez DO at 23:23 EST , Service support , CC: Chanel Duarte DO; Jo Hutchison MD Optical Manufacturing Technician: Signed KNEE 4 OR MORE Observed: 09/15/2017 Status: F Source: [facility] 11:50 AM REPOSITORY [facility] Imaging Services [address] [place] [address] Knee 4 or More Views MR#: [id number] Acct: [id number] Name: LEATHA ABAD Rep #: [id number] : 1960 F 56 From: Jason Ramirez PCP: Chanel Duarte DO Status: REG CLI Study: Knee 4 or More Views Date of Exam: 09/15/17 Exam# [id number] Ordering Dr: Jo Hutchison MD STUDY: X-RAY - LEFT KNEE REASON FOR EXAM: Female, 56 years old. Psoriatic arthropathy TECHNIQUE: 4 view(s) of the knee. COMPARISON: None. FINDINGS: Normal visualized distal femur. Normal visualized proximal tibia and fibula. Normal proximal tibiofibular articulation. Superior patellar osteophyte. There is mild degenerative arthrosis of the medial femorotibial compartment. There is mild degenerative arthrosis of the lateral femorotibial compartment. Normal patellofemoral articulation. The soft tissue structures are unremarkable. RAD/Knee 4 or More Views IMPRESSION: Degenerative arthrosis. No fracture or dislocation. Electronically Signed: Jason Ramirez DO at 23:23 EST , Service support , CC: Chanel Duarte DO; Jo Hutchison MD Optical Manufacturing Technician: Signed ALLERGIES ALLERGIES DATE TYPE / CODE NAME / CODE REACTION SEVERITY SOURCE 04/22/2018 Drug Sulfa Unknown Unknown [place] [facility] Allergy/4160 (Sulfonamide Hospital 97946(SNOMED Antibiotics)/ Repository CT) [id number](RX NORM) 04/22/2018 Drug amoxicillin/F Rash [place] T[place] [facility] Allergy/4160 [id number](RXN Hospital 11655(SNOMED ORM) Repository CT) ENCOUNTERS ENCOUNTERS ADMIT/DISCHARGE ACCOUNT ADMITTING ENCOUNTER LOCATION SOURCE NUMBER CLASS 09/01/2018 [id number] Ambulatory [place] Tani 7 [facility] ing:OPBD Repository 07/29/2018 [id number] Ambulatory Building:[facility] OHIP Practices Repository 04/22/2018/ [id number] Emergency [place] 8 1 [facility] ing:ED Repository 04/17/2018 [id number] Ambulatory [place] Tani 7 [facility] ing:MTLAB Repository 02/21/2018/ [id number] Emergency [place] Tani 8 5 [facility] ing:ED Repository 11/28/2017 [id number] Ambulatory [place] Tani 4 [facility] ing:MTLAB Repository 09/25/2017 [id number] Ambulatory [place] Tani 6 [facility] ing:LABSPEC Repository 09/15/2017 [id number] Ambulatory [place] 3 [facility] ing:MTLAB Repository PAYERS PAYERS ENCOUNTER GUARANTOR PAYER SUBSCRIBER SOURCE 09/01/2018 LEATHA Joy Primary LEATHA Joy [place] [id number] Insurance:MEDICAL GLESSNERDOB: [facility] [id number] [facility] [address], Number: [place]ository [place] [id number]: [id number] Date:0051-02-05JY [address] (HP) [address], [place] [address]JI: 09/01/2018 Secondary NOT GIVENUNK [place] Insurance:SELF PAY [facility] Number: Effective Repository Date:2018-07-01 07/29/2018 Leatha G Primary Leatha G OHIP Practices GlessnerDOB: Insurance:Medical GlessnerDOB: Repository [id number] Box [facility] [id number] [id number] Number: [id number] [facility] [id number] [facility] [place] Date:6489-10-59Misc [place] [address]Quq: (113) Name:[facility] [address] [address]Xut: [address], [place] [phone] (HP) (HP)Tel: [phone]: [phone] 07/29/2018 Secondary Leatha G OHIP Practices Insurance:United GlessnerDOB: Repository [facility] [id number] Number: [id number] [place] Date: - [place] 8655-37-41Tgea [address]Zaj: (448) Name:[facility] [phone] (HP) [address], [place] [address]NH: 07/29/2018 Tertiary Leatha G [facility] Practices Insurance:Summa GlessnerDOB: Repository CarePolicy Number: [id number] [id number] Date:2010-08-11 - [place] 7307-10-70Einq [place] Name:[facility] [address] [address]Irf: [phone], [place] [phone] (HP) [address]FH: 07/29/2018 Tertiary Leatha G [facility]IP Practices Insurance:Summa GlessnerDOB: Repository CarePolicy Number: [id number] [id number] Date:2015-08-11 - [place] [id number] [place] [address] Name:[facility] [address] [address]Stv: [phone], [place] [phone] (QZ) [address]CF: 04/22/2018 LEATHA G Primary LEATHA G [place] [id number] Insurance:MEDICAL GLESSNERDOB: [facility] [id number], Number: [place]ository [place] [id number]: [id number] Date:1808-95-17UU [address] () [address], [place] [address]KP: 04/22/2018 Secondary NOT GIVENUNK [place] Insurance:SELF PAY [facility] Number: Effective Repository Date:2018-04-22 04/17/2018 LEATHA G Primary LEATHA G [place] [id number] Insurance:MEDICAL GLESSNERDOB: [facility] [id number], Number: [place]ository [place] [id number]: [id number] Date:5142-80-53WD [address] () [address] [place] [address]WM: 04/17/2018 Secondary NOT GIVENUNK [place] Insurance:SELF PAY [facility] Number: Effective Repository Date:2018-04-17 02/21/2018 Leatha G Primary Leatha G Tani [id number] Insurance:MEDICAL GlessnerDOB: [facility] [id number], Number: [place]ository [place] [id number]: [id number] Date:4609-57-11CO [address] () [address], [place] [address]VR: 02/21/2018 Secondary NOT GIVENUNK [place] Insurance:SELF PAY [facility] Number: Effective Repository Date:2018-02-21 11/28/2017 Leatha G Primary Leatha G [place] [id number] Insurance:MEDICAL GlessnerDOB: [facility] [place] [facility] [id number], Number: Repository [place] [address]Okg: [id number] Date:1859-22-24BW [address] () [address] [place] [address]VK: 11/28/2017 Secondary NOT GIVENUNK [place] Insurance:SELF PAY [facility] Number: Effective Repository Date:2017-11-28 09/25/2017 Leatha G Primary Leatha G [place] [id number] Insurance:MEDICAL GlessnerDOB: [facility] [id number] Hospital [address] [place] [address], Number: [place]ository [place] [id number]: [id number] Date:2201-39-86WX [address] () [address] [place] [address]AF: 09/25/2017 Secondary NOT GIVENUNK [place] Insurance:SELF PAY [facility] Number: Effective Repository Date:2017-09-25 09/15/2017 Leatha Joy Primary Leatha G T[place] [id number] Insurance:MEDICAL GlessnerDOB: [facility] [id number] Hospital [address] [place] [address], Number: Repository [place] [id number]: [id number] Date:7682-15-55AF [address] () [address] [place] [address]ZR: 09/15/2017 Secondary NOT GIVENUNK [place] Insurance:SELF PAY [facility] Number: Effective Repository Date:2017-09-15
== END ==
PROVIDERS: Family Provider Internal Medicine; PCP Internal Medicine; Referring Provider Internal Medicine; Visit Provider Internal Medicine
DX: Z12.31 Encounter for screening mammogram for malignant neoplasm of breast (principal); Z78.0 Asymptomatic menopausal state
CPT/HCPCS: 77063; 77067; 77080

== ENCOUNTER → 2018-11-03 08:52 | Outpatient (CLI) | payer OTHER, SELFPAY ==
[2018-11-03 10:19] LABS: Absolute Lymphocyte Count 2.88 X10^3/ul (0.83-4.51); Absolute Neutrophil Count 3.1 X10^3/uL (2.0-7.7); Basophil# 0.03 X10^3/uL; Basophil% 0.4 % (0-1); Eosinophil# 0.15 X10^3/uL; Eosinophils% 2.2 % (0-5); Hematocrit 40.1 % (37-47); Hemoglobin 12.3 g/dl (12.0-15.0); Lymphocyte # 2.88 X10^3/ul (4.0); Lymphocyte % 42.7 % (19-41); Mean Corp Hgb Conc 30.7 g/gl (32-36); Mean Corpuscular Hgb 28.2 pg (27.0-32.0); Mean Platelet Vol. 9.9 fl (6.2-12.0); Monocyte# 0.58 X10^3/uL; Monocyte% 8.6 % (0-10); Platelet Count 277 K/mm3 (150-450); RBC Distribution Width SD 43.2 fl (35.1-43.9); Red Blood Count 4.36 M/mm3 (4.2-5.4); White Blood Count 6.8 K/mm3 (4.4-11.0)
[2018-11-03 10:23] LABS: POSITIVE COUNT NO; POSITIVE DIFFERENTIAL NO; POSITIVE MORPHOLOGY NO
[2018-11-03 10:30] LABS: ALB/GLOB Ratio 0.7 RATIO (0.9-2.4); AST(SGOT) 40 U/L (15-37); Alanine Aminotransfer ALT/SGPT 41 U/L (13-56); Albumin, Serum 3.4 g/dL (3.2-5.0); Alkaline Phosphatase 79 U/L (45-117); Anion Gap 6 (5-15); BUN 13 mg/dL (7-18); BUN/Creat Ratio 10.7 RATIO (10-20); Chloride 106 mmol/L (98-107); Creatinine, Serum 1.22 mg/dL (0.55-1.02); EST Glomerular Filtration Rate 48 mL/min (>60); Est Glom Filt Rate - Afr Amer 58 mL/min (>60); Globulin 4.6 g/dL (2.2-4.2); Glucose 182 mg/dL (74-106); Potassium 4.1 mmol/L (3.5-5.1); Sodium Level 140 mmol/L (136-145)
== END ==
PROVIDERS: Family Provider Internal Medicine; PCP Internal Medicine; Referring Provider Internal Medicine Rheumatology; Visit Provider Internal Medicine Rheumatology
DX: L40.59 Other psoriatic arthropathy (principal); L40.9 Psoriasis, unspecified; K76.0 Fatty (change of) liver, not elsewhere classified; M25.561 Pain in right knee; M50.30 Other cervical disc degeneration, unspecified cervical region; E11.9 Type 2 diabetes mellitus without complications; G43.909 Migraine, unspecified, not intractable, without status migrainosus; Z79.899 Other long term (current) drug therapy
CPT/HCPCS: 36415; 80053; 85025

== ENCOUNTER → 2019-05-07 | Outpatient (CLI) | payer OTHER, SELFPAY ==
[2019-05-07 12:20] LABS: Absolute Lymphocyte Count 2.52 X10^3/uL (0.83-4.51); Absolute Neutrophil Count 3.6 X10^3/uL (2.0-7.7); Basophil# 0.02 X10^3/uL; Basophil% 0.3 % (0-1); Eosinophils% 2.9 % (0-5); Hematocrit 41.8 % (37-47); Hemoglobin 13.3 g/dL (12.0-15.0); Lymphocyte # 2.52 X10^3/ul (4.0); Lymphocyte % 36.6 % (19-41); Mean Corp Hgb Conc 31.8 g/dL (32-36); Mean Corpuscular Hgb 29.5 pg (27.0-32.0); Mean Corpuscular Volume 92.7 fL (81-99); Mean Platelet Vol. 9.7 fl (6.2-12.0); Monocyte# 0.54 X10^3/uL; Monocyte% 7.8 % (0-10); NRBC Flagged by Analyzer 0 % (0-5); Neutrophil # 3.59 X10^3/uL (2.7-7.7); Neutrophil % 52.1 % (47-70); Platelet Count 270 K/mm3 (150-450); RBC Distribution Width CV 12.7 % (11.6-14.6); RBC Distribution Width SD 43.6 fl (35.1-43.9); Red Blood Count 4.51 M/mm3 (4.2-5.4); White Blood Count 6.9 K/mm3 (4.4-11.0)
[2019-05-07 12:38] LABS: ALB/GLOB Ratio 0.7 RATIO (0.9-2.4); AST(SGOT) 41 U/L (15-37); Alanine Aminotransfer ALT/SGPT 34 U/L (13-56); Albumin, Serum 3.3 g/dL (3.2-5.0); Alkaline Phosphatase 78 U/L (45-117); Anion Gap 9 (5-15); BUN 16 mg/dL (7-18); BUN/Creat Ratio 13.9 RATIO (10-20); Calcium,Total 8.9 mg/dL (8.5-10.1); Chloride 108 mmol/L (98-107); Creatinine, Serum 1.15 mg/dL (0.55-1.02); EST Glomerular Filtration Rate 51 mL/min (>60); Est Glom Filt Rate - Afr Amer 62 mL/min (>60); Globulin 4.8 g/dL (2.2-4.2); Glucose 163 mg/dL (74-106); Potassium 4.1 mmol/L (3.5-5.1); Protein, Total 8.1 g/dL (6.4-8.2); Sodium Level 141 mmol/L (136-145)
== END | disposition home or self-care (01) ==
LOC: MTLAB 10:13
PROVIDERS: Family Provider Internal Medicine; PCP Internal Medicine; Referring Provider Internal Medicine Rheumatology; Visit Provider Internal Medicine Rheumatology
DX: L40.59 Other psoriatic arthropathy (principal); L40.9 Psoriasis, unspecified; K76.0 Fatty (change of) liver, not elsewhere classified; M50.30 Other cervical disc degeneration, unspecified cervical region; E11.9 Type 2 diabetes mellitus without complications; G43.909 Migraine, unspecified, not intractable, without status migrainosus; Z79.899 Other long term (current) drug therapy
CPT/HCPCS: 36415; 80053; 85025

== ENCOUNTER → 2019-09-02 08:17 | Outpatient (CLI) | payer OTHER, SELFPAY ==
--- NOTE | 2019-09-02 08:19 | BI_ITS ---
MAMMOGRAPHY - BILATERAL SCREENING REASON FOR EXAM: Female, 58 years old. Routine annual screening examination. PERTINENT HISTORY: Mother with breast cancer. TECHNIQUE: Digital bilateral breast elaine (3D mammographic acquisition) in the CC and MLO projections. 2-D mediolateral oblique (MLO) and craniocaudad (CC) views of both breasts were obtained. CAD: Full Field Digital Mammography with Computer Added Detection was performed. COMPARISON: Comparison is made with prior study dated September 01, 2018 and July 28, 2017. FINDINGS: Breast Composition: There are scattered areas of fibroglandular density. There are no dominant masses or suspicious calcifications. No other significant abnormalities are identified. There has been no significant change since the prior study. BI/SCREEN MAMM (CAD) W/ELAINE BILAT IMPRESSION: Stable bilateral screening mammogram. Yearly follow-up mammogram recommended. (A) ASSESSMENT CATEGORY: BIRADS Category 1: Negative. A letter regarding these results will be sent to the patient by the facility within 30 days. Approximately 10% of breast cancers are not detected by mammography. A normal mammogram should not delay biopsy of a clinically suspicious abnormality. [id number] Electronically Signed: Jordy Masters, at 9:04 EST , Service support ,
== END ==
PROVIDERS: Family Provider Internal Medicine; PCP Internal Medicine; Referring Provider Internal Medicine; Visit Provider Internal Medicine
DX: Z12.31 Encounter for screening mammogram for malignant neoplasm of breast (principal)
CPT/HCPCS: 77063; 77067

== ENCOUNTER → 2019-11-03 12:35 | Outpatient (CLI) | payer OTHER, SELFPAY ==
[2019-11-03 15:29] LABS: Absolute Lymphocyte Count 2.84 X10^3/uL (0.83-4.51); Absolute Neutrophil Count 3.9 X10^3/uL (2.0-7.7); Basophil# 0.04 X10^3/uL; Basophil% 0.5 % (0-1); Eosinophil# 0.14 X10^3/uL; Eosinophils% 1.9 % (0-5); Hematocrit 41.7 % (37-47); Hemoglobin 13.1 g/dL (12.0-15.0); Lymphocyte # 2.84 X10^3/ul (4.0); Lymphocyte % 38.5 % (19-41); Mean Corp Hgb Conc 31.4 g/dL (32-36); Mean Corpuscular Hgb 28.7 pg (27.0-32.0); Mean Corpuscular Volume 91.2 fL (81-99); Mean Platelet Vol. 10.1 fl (6.2-12.0); Monocyte# 0.48 X10^3/uL; Monocyte% 6.5 % (0-10); NRBC Flagged by Analyzer 0 % (0-5); Neutrophil # 3.87 X10^3/uL (2.7-7.7); Neutrophil % 52.5 % (47-70); Platelet Count 272 K/mm3 (150-450); RBC Distribution Width CV 12.6 % (11.6-14.6); RBC Distribution Width SD 41.7 fl (35.1-43.9); Red Blood Count 4.57 M/mm3 (4.2-5.4); White Blood Count 7.4 K/mm3 (4.4-11.0)
[2019-11-03 15:47] LABS: ALB/GLOB Ratio 0.8 RATIO (0.9-2.4); AST(SGOT) 27 U/L (15-37); Alanine Aminotransfer ALT/SGPT 33 U/L (13-56); Albumin, Serum 3.7 g/dL (3.2-5.0); Alkaline Phosphatase 80 U/L (45-117); Anion Gap 9 (5-15); BUN 15 mg/dL (7-18); BUN/Creat Ratio 12.5 RATIO (10-20); Calcium,Total 9.4 mg/dL (8.5-10.1); Chloride 104 mmol/L (98-107); EST Glomerular Filtration Rate 49 mL/min (>60); Est Glom Filt Rate - Afr Amer 59 mL/min (>60); Globulin 4.8 g/dL (2.2-4.2); Glucose 140 mg/dL (74-106); Protein, Total 8.5 g/dL (6.4-8.2); Sodium Level 140 mmol/L (136-145)
== END ==
PROVIDERS: PCP Internal Medicine; Referring Provider Internal Medicine Rheumatology; Visit Provider Internal Medicine Rheumatology
DX: L40.59 Other psoriatic arthropathy (principal); L40.9 Psoriasis, unspecified; K76.0 Fatty (change of) liver, not elsewhere classified; M50.30 Other cervical disc degeneration, unspecified cervical region; Z79.899 Other long term (current) drug therapy
CPT/HCPCS: 36415; 80053; 85025

== ENCOUNTER → 2020-05-04 | Outpatient (CLI) | payer OTHER, SELFPAY ==
[2020-05-04 15:27] LABS: Absolute Lymphocyte Count 2.98 X10^3/uL (0.83-4.51); Absolute Neutrophil Count 4.3 X10^3/uL (2.0-7.7); Basophil# 0.03 X10^3/uL; Basophil% 0.4 % (0-1); Eosinophil# 0.11 X10^3/uL; Eosinophils% 1.4 % (0-5); Hematocrit 42.5 % (37-47); Hemoglobin 13.5 g/dL (12.0-15.0); Lymphocyte # 2.98 X10^3/ul (4.0); Lymphocyte % 37.3 % (19-41); Mean Corp Hgb Conc 31.8 g/dL (32-36); Mean Corpuscular Hgb 29.2 pg (27.0-32.0); Mean Platelet Vol. 9.6 fl (6.2-12.0); Monocyte# 0.58 X10^3/uL; Monocyte% 7.3 % (0-10); NRBC Flagged by Analyzer 0 % (0-5); Neutrophil # 4.27 X10^3/uL (2.7-7.7); Neutrophil % 53.3 % (47-70); Platelet Count 308 K/mm3 (150-450); RBC Distribution Width CV 12.5 % (11.6-14.6); RBC Distribution Width SD 42.1 fl (35.1-43.9); Red Blood Count 4.62 M/mm3 (4.2-5.4)
[2020-05-04 15:49] LABS: ALB/GLOB Ratio 0.7 RATIO (0.9-2.4); AST(SGOT) 34 U/L (15-37); Alanine Aminotransfer ALT/SGPT 35 U/L (13-56); Albumin, Serum 3.6 g/dL (3.2-5.0); Alkaline Phosphatase 70 U/L (45-117); Anion Gap 6 (5-15); BUN 14 mg/dL (7-18); BUN/Creat Ratio 12.8 RATIO (10-20); Chloride 106 mmol/L (98-107); Creatinine, Serum 1.09 mg/dL (0.55-1.02); EST Glomerular Filtration Rate 54 mL/min (>60); Est Glom Filt Rate - Afr Amer 66 mL/min (>60); Globulin 4.9 g/dL (2.2-4.2); Glucose 104 mg/dL (74-106); Potassium 3.8 mmol/L (3.5-5.1); Protein, Total 8.5 g/dL (6.4-8.2); Sodium Level 139 mmol/L (136-145)
== END | disposition home or self-care (01) ==
LOC: MTLAB 13:28
PROVIDERS: PCP Internal Medicine; Referring Provider Internal Medicine Rheumatology; Visit Provider Internal Medicine Rheumatology
DX: L40.59 Other psoriatic arthropathy (principal); L40.9 Psoriasis, unspecified; K76.0 Fatty (change of) liver, not elsewhere classified; M50.30 Other cervical disc degeneration, unspecified cervical region; E11.9 Type 2 diabetes mellitus without complications; G43.909 Migraine, unspecified, not intractable, without status migrainosus; Z79.899 Other long term (current) drug therapy
CPT/HCPCS: 36415; 80053; 85025

== ENCOUNTER → 2020-09-04 10:14 | Outpatient (CLI) | payer OTHER, SELFPAY ==
--- NOTE | 2020-09-04 10:18 | BI_ITS ---
MAMMOGRAPHY - BILATERAL SCREENING REASON FOR EXAM: Female, 59 years old. Routine annual screening examination. PERTINENT HISTORY: Sister with breast cancer. Mother with breast cancer. TECHNIQUE: Digital bilateral breast elaine (3D mammographic acquisition) in the CC and MLO projections. 2-D mediolateral oblique (MLO) and craniocaudad (CC) views of both breasts were obtained. CAD: Full Field Digital Mammography with Computer Added Detection was performed. COMPARISON: Comparison is made with prior study dated 09/02/2019 and 09/01/2018. FINDINGS: Breast Composition: There are scattered areas of fibroglandular density. There are no dominant masses or suspicious calcifications. Stable benign-appearing bilateral axillary lymph nodes. No other significant abnormalities are identified. There has been no significant change since the prior study. BI/SCRN MAMM (CAD)W/ELAINE BILAT IMPRESSION: Stable bilateral screening mammogram. Yearly follow-up mammogram recommended. (A) ASSESSMENT CATEGORY: BIRADS Category 2: Benign. A letter regarding these results will be sent to the patient by the facility within 30 days. Approximately 10% of breast cancers are not detected by mammography. A normal mammogram should not delay biopsy of a clinically suspicious abnormality. [id number] Electronically Signed: Jordy Masters MD at 11:06 EST , Service support ,
== END ==
PROVIDERS: PCP Internal Medicine; Referring Provider Internal Medicine; Visit Provider Internal Medicine
DX: Z12.31 Encounter for screening mammogram for malignant neoplasm of breast (principal)
CPT/HCPCS: 77063; 77067

== ENCOUNTER → 2020-10-24 12:38 | Outpatient (CLI) | payer OTHER, SELFPAY ==
[2020-10-24 15:30] LABS: Absolute Lymphocyte Count 2.58 X10^3/uL (0.83-4.51); Absolute Neutrophil Count 4.3 X10^3/uL (2.0-7.7); Basophil# 0.05 X10^3/uL; Basophil% 0.6 % (0-1); Eosinophil# 0.12 X10^3/uL; Eosinophils% 1.6 % (0-5); Hematocrit 41.8 % (37-47); Hemoglobin 13.2 g/dL (12.0-15.0); Lymphocyte # 2.58 X10^3/ul (4.0); Lymphocyte % 33.3 % (19-41); Mean Corp Hgb Conc 31.6 g/dL (32-36); Mean Corpuscular Hgb 29.3 pg (27.0-32.0); Mean Corpuscular Volume 92.7 fL (81-99); Mean Platelet Vol. 10.2 fl (6.2-12.0); Monocyte# 0.64 X10^3/uL; Monocyte% 8.3 % (0-10); NRBC Flagged by Analyzer 0 % (0-5); Neutrophil # 4.31 X10^3/uL (2.7-7.7); Neutrophil % 55.7 % (47-70); Platelet Count 276 K/mm3 (150-450); RBC Distribution Width SD 44.1 fl (35.1-43.9); Red Blood Count 4.51 M/mm3 (4.2-5.4); White Blood Count 7.7 K/mm3 (4.4-11.0)
[2020-10-24 16:01] LABS: ALB/GLOB Ratio 0.8 RATIO (0.9-2.4); AST(SGOT) 23 U/L (15-37); Alanine Aminotransfer ALT/SGPT 31 U/L (13-56); Albumin, Serum 3.7 g/dL (3.2-5.0); Alkaline Phosphatase 71 U/L (45-117); Anion Gap 4 (5-15); BUN 16 mg/dL (7-18); Calcium,Total 9.5 mg/dL (8.5-10.1); Chloride 105 mmol/L (98-107); Creatinine, Serum 1.14 mg/dL (0.55-1.02); EST Glomerular Filtration Rate 52 mL/min (>60); Est Glom Filt Rate - Afr Amer 62 mL/min (>60); Globulin 4.5 g/dL (2.2-4.2); Glucose 113 mg/dL (74-106); Potassium 3.9 mmol/L (3.5-5.1); Protein, Total 8.2 g/dL (6.4-8.2); Sodium Level 140 mmol/L (136-145)
== END ==
PROVIDERS: PCP Internal Medicine; Referring Provider Internal Medicine Rheumatology; Visit Provider Internal Medicine Rheumatology
DX: L40.59 Other psoriatic arthropathy (principal); L40.9 Psoriasis, unspecified; K76.0 Fatty (change of) liver, not elsewhere classified; M50.30 Other cervical disc degeneration, unspecified cervical region; E11.9 Type 2 diabetes mellitus without complications; G43.909 Migraine, unspecified, not intractable, without status migrainosus; Z79.899 Other long term (current) drug therapy
CPT/HCPCS: 36415; 80053; 85025

== ENCOUNTER → 2020-12-20 10:00 | Outpatient (CLI) | payer OTHER, SELFPAY ==
--- NOTE | 2020-12-20 10:02 | US_ITS ---
STUDY: RENAL ULTRASOUND - COMPLETE REASON FOR EXAM: Female, 60 years old. Other specified congenital malformation syndromes TECHNIQUE: Ultrasound evaluation of the kidneys was performed with real-time and static moralez-scale imaging. COMPARISON: None. FINDINGS: RIGHT KIDNEY: Normal location of the right kidney, which is normal in size. The right kidney measures 11.5 cm x 4.9 cm x 4.7 cm. There is a normal cortex of the right kidney. The renal cortex measures 1.6 cm. There is no right renal mass or cyst. There are no right renal calculi. There is no right hydronephrosis. DISTAL RIGHT URETER: There is non-visualization of the distal right ureter. There is no demonstrated right ureterovesical junction calculus. There is a visualized right ureteral jet. LEFT KIDNEY: Normal location of the left kidney, which is normal in size. The left kidney measures 10.8 cm x 4.5 cm x 5.4 cm. There is a normal cortex of the left kidney. The renal cortex measures 1.6 cm. There is no left renal mass or cyst. There are no left renal calculi. There is no left hydronephrosis. DISTAL LEFT URETER: There is non-visualization of the distal left ureter. There is no demonstrated left ureterovesical junction calculus. There is a visualized left ureteral jet. BLADDER: The distended urinary bladder has a volume of 10.1 ml. There is a normal wall thickness of the distended urinary bladder. There is no demonstrated mass within the urinary bladder. There are no demonstrated bladder calculi. US/Kidney and Bladder IMPRESSION: Normal ultrasound of the kidneys and urinary bladder. Electronically Signed: Jordy Masters MD at 15:35 EDT , Service support ,
== END ==
PROVIDERS: PCP Internal Medicine; Referring Provider Internal Medicine; Visit Provider Internal Medicine
DX: Q87.89 Other specified congenital malformation syndromes, not elsewhere classified (principal)
CPT/HCPCS: 76770

== ENCOUNTER → 2021-02-01 09:38 | Outpatient (CLI) | payer OTHER, SELFPAY ==
[2021-02-01 12:01] LABS: Absolute Lymphocyte Count 4.39 X10^3/uL (0.83-4.51); Absolute Neutrophil Count 6.8 X10^3/uL (2.0-7.7); Basophil# 0.06 X10^3/uL; Basophil% 0.5 % (0-1); Eosinophil# 0.28 X10^3/uL; Eosinophils% 2.2 % (0-5); Hematocrit 41.1 % (37-47); Lymphocyte # 4.39 X10^3/ul (0.83-4.51); Lymphocyte % 35.1 % (19-41); Mean Corp Hgb Conc 31.6 g/dL (32-36); Mean Corpuscular Hgb 29.3 pg (27.0-32.0); Mean Corpuscular Volume 92.8 fL (81-99); Mean Platelet Vol. 9.7 fl (6.2-12.0); Monocyte# 0.91 X10^3/uL; Monocyte% 7.3 % (0-10); NRBC Flagged by Analyzer 0 % (0-5); Neutrophil # 6.75 X10^3/uL (2.7-7.7); Neutrophil % 53.9 % (47-70); Platelet Count 283 K/mm3 (150-450); RBC Distribution Width CV 13.2 % (11.6-14.6); RBC Distribution Width SD 44.9 fl (35.1-43.9); Red Blood Count 4.43 M/mm3 (4.2-5.4); White Blood Count 12.5 K/mm3 (4.4-11.0)
[2021-02-01 12:12] LABS: ALB/GLOB Ratio 0.8 RATIO (0.9-2.4); AST(SGOT) 33 U/L (15-37); Alanine Aminotransfer ALT/SGPT 45 U/L (13-56); Albumin, Serum 3.2 g/dL (3.2-5.0); Alkaline Phosphatase 66 U/L (45-117); Anion Gap 8 (5-15); BUN 20 mg/dL (7-18); BUN/Creat Ratio 17.1 RATIO (10-20); Calcium,Total 8.7 mg/dL (8.5-10.1); Chloride 102 mmol/L (98-107); Creatinine, Serum 1.17 mg/dL (0.55-1.02); EST Glomerular Filtration Rate 50 mL/min (>60); Est Glom Filt Rate - Afr Amer 60 mL/min (>60); Globulin 4.2 g/dL (2.2-4.2); Glucose 197 mg/dL (74-106); Potassium 3.7 mmol/L (3.5-5.1); Protein, Total 7.4 g/dL (6.4-8.2); Sodium Level 136 mmol/L (136-145)
== END ==
PROVIDERS: PCP Internal Medicine; Referring Provider Internal Medicine Rheumatology; Visit Provider Internal Medicine Rheumatology
DX: L40.59 Other psoriatic arthropathy (principal); L40.9 Psoriasis, unspecified; K76.0 Fatty (change of) liver, not elsewhere classified; M50.30 Other cervical disc degeneration, unspecified cervical region; E11.9 Type 2 diabetes mellitus without complications; G43.909 Migraine, unspecified, not intractable, without status migrainosus; Z79.899 Other long term (current) drug therapy
CPT/HCPCS: 36415; 80053; 85025

== ENCOUNTER → 2021-04-24 08:31 | Outpatient (CLI) | payer OTHER, SELFPAY ==
--- NOTE | 2021-04-24 08:50 | RAD_ITS ---
STUDY: X-RAY CHEST REASON FOR EXAM: Female, 60 years old. 2 day history of cough and chest pain. TECHNIQUE: PA and lateral views of the chest. COMPARISON: Comparison is made with prior study dated 11/06/2016. FINDINGS: Hyperinflation. There is no demonstrated pleural abnormality. Normal size heart. Normal mediastinum and gabriela. Normal visualized pulmonary arteries. There is atherosclerotic tortuosity of the aortic arch and descending thoracic aorta. There are diffuse degenerative changes of the visualized thoracic spine. The patient is status post fusion of the lower cervical spine. There is no demonstrated abnormality of the visualized soft tissue structures of the upper abdomen. RAD/Chest PA and Lateral IMPRESSION: Hyperinflation. The lungs are clear. Electronically Signed: Jordy Masters MD at 9:07 EDT , Service support ,
== END ==
PROVIDERS: PCP Internal Medicine; Referring Provider Nurse Practitioner; Visit Provider Nurse Practitioner
DX: R05 Cough (principal); Z20.822 Contact with and (suspected) exposure to COVID-19
CPT/HCPCS: 71046; 87633; 87635; C9803; U0005; U0003

== ENCOUNTER → 2021-08-02 11:23 | Outpatient (CLI) | payer OTHER, SELFPAY ==
[2021-08-02 14:34] LABS: ALB/GLOB Ratio 0.7 RATIO (0.9-2.4); AST(SGOT) 41 U/L (15-37); Alanine Aminotransfer ALT/SGPT 55 U/L (13-56); Albumin, Serum 3.5 g/dL (3.2-5.0); Alkaline Phosphatase 70 U/L (45-117); Anion Gap 9 (5-15); BUN 10 mg/dL (7-18); BUN/Creat Ratio 9.4 RATIO (10-20); Calcium,Total 9.2 mg/dL (8.5-10.1); Chloride 105 mmol/L (98-107); Creatinine, Serum 1.06 mg/dL (0.55-1.02); EST Glomerular Filtration Rate 56 mL/min (>60); Est Glom Filt Rate - Afr Amer 68 mL/min (>60); Globulin 4.7 g/dL (2.2-4.2); Glucose 165 mg/dL (74-106); Potassium 3.9 mmol/L (3.5-5.1); Protein, Total 8.2 g/dL (6.4-8.2); Sodium Level 142 mmol/L (136-145)
[2021-08-02 14:35] LABS: Absolute Neutrophil Count 3.2 X10^3/uL (2.0-7.7); Basophil# 0.03 X10^3/uL; Basophil% 0.4 % (0-1); Eosinophil# 0.15 X10^3/uL; Eosinophils% 2.2 % (0-5); Hematocrit 41.4 % (37-47); Hemoglobin 13.1 g/dL (12.0-15.0); Lymphocyte % 41.3 % (19-41); Mean Corp Hgb Conc 31.6 g/dL (32-36); Mean Corpuscular Hgb 29.4 pg (27.0-32.0); Mean Platelet Vol. 10.1 fl (6.2-12.0); Monocyte# 0.59 X10^3/uL; Monocyte% 8.7 % (0-10); NRBC Flagged by Analyzer 0 % (0-5); Neutrophil % 47.3 % (47-70); Platelet Count 274 K/mm3 (150-450); RBC Distribution Width CV 12.4 % (11.6-14.6); RBC Distribution Width SD 42.6 fl (35.1-43.9); Red Blood Count 4.45 M/mm3 (4.2-5.4); White Blood Count 6.8 K/mm3 (4.4-11.0)
== END ==
PROVIDERS: PCP Internal Medicine; Referring Provider Internal Medicine Rheumatology; Visit Provider Internal Medicine Rheumatology
DX: L40.59 Other psoriatic arthropathy (principal); Z79.899 Other long term (current) drug therapy; L40.9 Psoriasis, unspecified; K76.0 Fatty (change of) liver, not elsewhere classified; M50.30 Other cervical disc degeneration, unspecified cervical region; E11.9 Type 2 diabetes mellitus without complications; G43.909 Migraine, unspecified, not intractable, without status migrainosus
CPT/HCPCS: 36415; 80053; 85025

== ENCOUNTER → 2021-12-27 | Outpatient (CLI) | payer BC, SELFPAY ==
--- NOTE | 2021-12-27 10:03 | BI_ITS ---
MAMMOGRAPHY - BILATERAL SCREENING REASON FOR EXAM: Female, 61 years old. Routine annual screening examination. PERTINENT HISTORY: Sister with breast cancer. Mother with breast cancer. TECHNIQUE: Digital bilateral breast elaine (3D mammographic acquisition) in the CC and MLO projections. 2-D mediolateral oblique (MLO) and craniocaudad (CC) views of both breasts were obtained. CAD: Full Field Digital Mammography with Computer Added Detection was performed. COMPARISON: Comparison is made with prior study dated 09/04/2020 and 09/02/2019. FINDINGS: Breast Composition: There are scattered areas of fibroglandular density. There are no dominant masses or suspicious calcifications. Stable small benign appearing bilateral axillary lymph nodes. No other significant abnormalities are identified. There has been no significant change since the prior study. BI/SCRN MAMM (CAD)W/ELAINE BILAT IMPRESSION: Stable bilateral screening mammogram. Yearly follow-up mammogram recommended. (A) ASSESSMENT CATEGORY: BIRADS Category 2: Benign. A letter regarding these results will be sent to the patient by the facility within 30 days. Approximately 10% of breast cancers are not detected by mammography. A normal mammogram should not delay biopsy of a clinically suspicious abnormality. [id number] Electronically Signed: Jordy Masters MD at 13:00 EDT ,
--- NOTE | 2021-12-27 10:04 | BD_ITS ---
STUDY: DUAL ENERGY X-RAY ABSORPTIOMETRY / DXA REASON FOR EXAM: Female, 61 years old. Z780. The patient is postmenopausal. TECHNIQUE: Bone Mineral Density (BMD) measurements of lumbar spine and bilateral hips were obtained. COMPARISON: Comparison is made with prior study dated 09/01/2018. FINDINGS: Lumbar Spine (L1-L4): g/cm2 (1.087) / T-score (0.4) / Z-score (1.9) Findings are suggestive of normal bone density with a low fracture risk. Left Femur Total: g/cm2 (0.937) / T-score (0.0) / Z-score (1.0) Left Femoral Neck: g/cm2 (0.786) / T-score (-0.6) / Z-score (0.8) Right Femur Total: g/cm2 (0.895) / T-score (-0.4) / Z-score (0.7) Right Femoral Neck: g/cm2 (0.719) / T-score (-1.2) / Z-score (0.2) The T-Scores on the most recent prior examination were: Lumbar Spine (L1-L4): There has been worsening of bone density since the previous examination. Left Femur Total: which represents a worsening of 0.3%. Right Femur Total: which represents an improvement of 2.8%. BD/Dexa Bone Density Study IMPRESSION: The patient is considered osteopenic as outlined below according to World Yon Organization (WHO) criteria with a low fracture risk. There has been worsening of bone density since the previous examination. Reference Information: The T-score is the number of standard deviations above or below the standard which is normal for young adults at their peak bone mineral density. The World Health Organization (WHO) interprets the T-scores as follows: Above -1 Normal bone density Between -1 and -2.5 Osteopenia Equal to / or below -2.5 Osteoporosis As a practical clinical guideline, osteopenia may be graded as follows: Mild -1 through -1.5 Moderate -1.6 through -2.0 Severe -2.1 through -2.4 The Z-score is the number of standard deviations above or below age-matched controls. A Z-score of less than -1.5 would be considered abnormal. References: 1. NIH Osteoporosis and Related Bone Diseases www osteo.org 2. International Society for Clinical Densitometry www iscd.org 3. National Osteoporosis Foundation www nof.org Electronically Signed: Jordy Masters MD at 12:56 EDT ,
== END | disposition home or self-care (01) ==
LOC: OPBD 10:01
PROVIDERS: PCP Internal Medicine; Visit Provider Internal Medicine
DX: Z12.31 Encounter for screening mammogram for malignant neoplasm of breast (principal); Z80.3 Family history of malignant neoplasm of breast; Z78.0 Asymptomatic menopausal state
CPT/HCPCS: 77063; 77067; 77080

== ENCOUNTER → 2022-01-04 | Outpatient (CLI) | payer BC, SELFPAY ==
[2022-01-04 14:28] LABS: Absolute Lymphocyte Count 3.03 X10^3/uL (0.83-4.51); Absolute Neutrophil Count 3.9 X10^3/uL (2.0-7.7); Basophil# 0.03 X10^3/uL; Basophil% 0.4 % (0-1); Eosinophil# 0.59 X10^3/uL; Eosinophils% 7.3 % (0-5); Hematocrit 39.2 % (37-47); Hemoglobin 12.4 g/dL (12.0-15.0); Lymphocyte # 3.03 X10^3/ul (0.83-4.51); Lymphocyte % 37.4 % (19-41); Mean Corp Hgb Conc 31.6 g/dL (32-36); Mean Corpuscular Hgb 30.1 pg (27.0-32.0); Mean Corpuscular Volume 95.1 fL (81-99); Mean Platelet Vol. 10.4 fl (6.2-12.0); Monocyte# 0.58 X10^3/uL; Monocyte% 7.2 % (0-10); NRBC Flagged by Analyzer 0 % (0-5); Neutrophil # 3.85 X10^3/uL (2.7-7.7); Neutrophil % 47.5 % (47-70); Platelet Count 247 K/mm3 (150-450); RBC Distribution Width CV 12.6 % (11.6-14.6); RBC Distribution Width SD 43.9 fl (35.1-43.9); Red Blood Count 4.12 M/mm3 (4.2-5.4); White Blood Count 8.1 K/mm3 (4.4-11.0)
[2022-01-04 14:57] LABS: ALB/GLOB Ratio 0.9 RATIO (0.9-2.4); AST(SGOT) 30 U/L (15-37); Alanine Aminotransfer ALT/SGPT 44 U/L (13-56); Albumin, Serum 3.5 g/dL (3.2-5.0); Alkaline Phosphatase 68 U/L (45-117); Anion Gap 7 (5-15); BUN 16 mg/dL (7-18); BUN/Creat Ratio 14.5 RATIO (10-20); Calcium,Total 9.4 mg/dL (8.5-10.1); Chloride 107 mmol/L (98-107); EST Glomerular Filtration Rate 54 mL/min (>60); Est Glom Filt Rate - Afr Amer 65 mL/min (>60); Glucose 147 mg/dL (74-106); Potassium 3.7 mmol/L (3.5-5.1); Protein, Total 7.5 g/dL (6.4-8.2); Sodium Level 141 mmol/L (136-145)
== END | disposition home or self-care (01) ==
PROVIDERS: PCP Internal Medicine; Referring Provider Internal Medicine Rheumatology; Visit Provider Internal Medicine Rheumatology
DX: L40.59 Other psoriatic arthropathy (principal); E11.9 Type 2 diabetes mellitus without complications; K76.0 Fatty (change of) liver, not elsewhere classified; M50.30 Other cervical disc degeneration, unspecified cervical region; G43.909 Migraine, unspecified, not intractable, without status migrainosus; Z79.899 Other long term (current) drug therapy
CPT/HCPCS: 36415; 80053; 85025

== ENCOUNTER 2022-01-19 14:12 | Emergency (ER) | payer BC, SELFPAY ==
[2022-01-19 14:13] VITALS: BP 155/92; PULSE 86; RESP 18; TEMP 36.7; O2SAT 96; BMI 29.1
--- NOTE | 2022-01-19 14:33 | CT_ITS ---
STUDY: CT BRAIN WITHOUT CONTRAST REASON FOR EXAM: Female, 61 years old. weakness right side of face RADIATION DOSAGE (If Supplied By Facility): CTDIvol = ( 44.99 ) mGy, DLP = ( 812.98 ) mGycm TECHNIQUE: Transaxial CT imaging of the brain was performed without administration of intravenous contrast material. Individualized dose optimization techniques were used for this CT. COMPARISON: 02/21/2018 FINDINGS: Normal soft tissue structures. There is hyperostosis frontalis internus. Normal size ventricles and extra-axial spaces for the patient''s age. Normal white matter tracts of the cerebral hemispheres. Normal basal ganglia and thalami. Normal brainstem. Normal cerebellum. There is no intracranial hemorrhage. There are no findings of an acute ischemic infarction. Normal visualized paranasal sinuses. CT/Brain/Head without Contrast IMPRESSION: Normal unenhanced CT scan of the brain. Electronically Signed: Gage Simmons MD at 15:27 EDT ,
--- NOTE | 2022-01-19 14:35 | EDS_ITS ---
HPI History of Present Illness Chief Complaint: Numb/Ting Informant: patient Narrative Narrative: Patient noted a little bit of weakness and tearing irritation around her right eye yesterday at about 26 hours ago. This is slowly progressed to tingling around the corner of her mouth and weakness of the right side of her face. She has trouble fully closing the eye. She has no visual loss but she does have tearing and irritation. She also has a baseline mildly dry eyes. She has been using some eyedrops. She notices no numbness tingling weakness anywhere else in her body. No gait disturbance. Her blood pressures been good. 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 There is no trauma. No headache. 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 She has never had stroke but she does have some high blood pressure and diabetes. [facility] Medical History Diabetes HLD (hyperlipidemia) HTN (hypertension) Osteoarthritis Psoriatic arthritis Home Medications secukinumab [Cosentyx Syringe] 300 mg SQ QMONTH 02/21/18 [History Last Taken Unknown] atenolol [Tenormin] 12.5 mg PO DAILY 04/22/18 [History Last Taken Unknown] dicyclomine 20 mg PO TIDAC #20 cap 04/22/18 [Rx Last Taken Unknown] promethazine 25 mg PO Q6H PRN PRN #10 tab 04/22/18 [Rx Last Taken Unknown] sitagliptin [Januvia] 100 mg PO DAILY 04/22/18 [History Last Taken Unknown] vancomycin 125 mg PO Q6 #200 ml 04/22/18 [Rx Last Taken Unknown] prednisone See Rx Instructions .ROUTE .COMPLEX #32 tab 01/19/22 [Rx Last Taken Unknown] valacyclovir 1,000 mg PO TID #21 tab 01/19/22 [Rx Last Taken Unknown] Allergy/AdvReac Type Severity Reaction Status Date / Time amoxicillin Allergy Mild Rash Verified 01/19/22 14:12 Sulfa (Sulfonamide Allergy Unknown Verified 01/19/22 14:12 Antibiotics) Family History unable to obtain Surgical History unable to obtain Social History Smoking Status: Never smoker ROS ROS ED Constitutional Constitutional ED: Denies fever(s) Eyes Eyes: Reports other Details: Irritation of the eyes but no change in vision. ; Denies blurry vision, change in vision or diplopia ENT ENT ED: Reports other Details: Weakness right side of the face as in history of present illness ; Denies ear pain, rhinorrhea or sore throat Cardiovascular Cardiovascular: Denies chest pain, palpitations or racing heartbeat Respiratory/Chest Respiratory/Chest: Denies dyspnea Gastrointestinal Gastrointestinal: Denies nausea or vomiting Musculoskeletal Musculoskeletal: Reports arthralgias and other Details: Chronic psoriatic arthr itis but no acute change. Integumentary Reports other Details: No vesicles rash redness or irritation noted. ; Denies rash Neurologic Neurologic: Reports other Details: See history of present illness peer ; Denies headache(s) Psychiatric Psychiatric: Denies anxiety or depression Endocrine Endocrinology: Denies polydipsia or polyuria Allergic/Immunologic Allergic/Immunologic ED: Denies urticaria EXAM Physical Exam Const Vital Signs: 01/19/22 14:13 Temperature 98.0 F Temperature Source Temporal Pulse Rate 86 Respiratory Rate 18 Blood Pressure 155/92 H Blood Pressure Mean 113 Pulse Ox 96 Oxygen Delivery Method Room Air Positive well nourished and well developed General Appearance ED: well developed and NAD; Negative for cyanotic or diaphoretic HEENT HEENT Narrative: Patient does have weakness on the right side of her face. This does involve the forehead. There is tearing of the eyes but no injection or redness. Negative for trauma Eyes PERRL and EOMs intact bilaterally General Eye ED: Negative for pale conjunctiva or scleral icterus Neck no JVD Chest Wall inspection of chest normal Resp normal respiratory effort GI normal to inspection, nondistended, normoactive bowel sounds Extremity normal to inspection Neuro oriented x3 Neuro Narrative: See above. No focal deficit other than right face. Sensorium / Orientation: alert Skin no rashes or lesions noted Skin Narrative: No rash in the ear or tympanic membrane. No rash on the face. No vesicles. Negative Bustillo sign. MDM MDM MDM Narrative Medical decision making narrative: Patient's history and exam are all consistent with Singletary's palsy. However, she does have some risks for stroke. Out of precaution and thoroughness we did do CT scan of the head. This shows no acute process after more than 24 hours of symptoms. I think it is appropriate to get her on treatment for Singletary's palsy. We will use both steroids and antivirals. We explained that the most important portion is keeping the eye moist at all times. She does evidently have a thicker gel like eyedrop for moistening she can use. Any [id number] moistening drops is appropriate. If she rests, sleep or at night she needs to close the eyelid completely and then tape it shut to avoid opening. I explained that this can cause drying of the cornea and can even affect eyesight and cause blindness that can be permanent. If she develops any other neurologic symptoms or any visual complaints she needs to return. Radiography Diagnostic Testing: Clinical Impression(s) from Imaging Studies Brain CT 01/19/22 14:33 IMPRESSION: Normal unenhanced CT scan of the brain. Electronically Signed: Gage Simmons MD at 15:27 EDT , Discharge Plan Triage Chief Complaint: Numb/Ting ED Provider: Mg Navarro Dx/Rx/DC Orders Clinical Impression: Right-sided Singletary's palsy Instructions: ED Singletary's Palsy Prescriptions: New valacyclovir 1 gram tablet 1,000 mg PO TID Qty: 21 RF: 0 prednisone 10 mg tablet See Rx Instructions .ROUTE .COMPLEX Qty: 32 RF: 0 No Action secukinumab [Cosentyx] 150 MG/ML syringe 300 mg SQ QMONTH RF: 0 atenolol [Tenormin] 25 MG tablet 12.5 mg PO DAILY RF: 0 sitagliptin [Januvia] 100 MG tablet 100 mg PO DAILY RF: 0 promethazine 25 MG tablet 25 mg PO Q6H PRN PRN (Reason: Nausea) Qty: 10 RF: 0 dicyclomine 10 MG capsule 20 mg PO TIDAC Qty: 20 RF: 0 vancomycin 125 MG/5 ML recon soln 125 mg PO Q6 Qty: 200 RF: 0 Primary Care Provider: Chanel Duarte Referrals: Chanel Duarte DO [Primary Care Provider] - 3-5 Days Disposition Disposition: Home, Self Care
[2022-01-19] MEDS: predniSONE 20 MG Tablet 60 MG PO (14:38)
[2022-01-19] MEDS: Acyclovir 200 MG Capsule 400 MG PO (15:03)
== END 2022-01-19 15:47 | disposition home or self-care (01) ==
PROVIDERS: Emergency Provider Emergency Medicine; PCP Internal Medicine; Visit Provider Emergency Medicine
DX: G51.0 Bell's palsy (principal); L40.50 Arthropathic psoriasis, unspecified; E11.9 Type 2 diabetes mellitus without complications; I10 Essential (primary) hypertension; E78.5 Hyperlipidemia, unspecified
CPT/HCPCS: 70450; 99283

== ENCOUNTER → 2022-03-30 | Outpatient (CLI) | payer BC, SELFPAY ==
[2022-03-30 12:21] LABS: Absolute Lymphocyte Count 3.07 X10^3/uL (0.83-4.51); Basophil# 0.04 X10^3/uL; Basophil% 0.5 % (0-1); Eosinophil# 0.13 X10^3/uL; Eosinophils% 1.6 % (0-5); Hematocrit 38.4 % (37-47); Hemoglobin 12.7 g/dL (12.0-15.0); Lymphocyte # 3.07 X10^3/ul (0.83-4.51); Mean Corp Hgb Conc 33.1 g/dL (32-36); Mean Corpuscular Hgb 30.6 pg (27.0-32.0); Mean Corpuscular Volume 92.5 fL (81-99); Monocyte# 0.65 X10^3/uL; Monocyte% 8.2 % (0-10); NRBC Flagged by Analyzer 0 % (0-5); Neutrophil # 3.96 X10^3/uL (2.7-7.7); Neutrophil % 50.3 % (47-70); Platelet Count 265 K/mm3 (150-450); RBC Distribution Width CV 12.3 % (11.6-14.6); Red Blood Count 4.15 M/mm3 (4.2-5.4); White Blood Count 7.9 K/mm3 (4.4-11.0)
[2022-03-30 12:44] LABS: ALB/GLOB Ratio 0.8 RATIO (0.9-2.4); AST(SGOT) 27 U/L (15-37); Alanine Aminotransfer ALT/SGPT 37 U/L (13-56); Albumin, Serum 3.4 g/dL (3.2-5.0); Alkaline Phosphatase 63 U/L (45-117); Anion Gap 6 (5-15); BUN 14 mg/dL (7-18); BUN/Creat Ratio 12.6 RATIO (10-20); Calcium,Total 9.2 mg/dL (8.5-10.1); Chloride 104 mmol/L (98-107); Creatinine, Serum 1.11 mg/dL (0.55-1.02); EST Glomerular Filtration Rate 53 mL/min (>60); Est Glom Filt Rate - Afr Amer 64 mL/min (>60); Glucose 195 mg/dL (74-106); Potassium 3.8 mmol/L (3.5-5.1); Protein, Total 7.4 g/dL (6.4-8.2); Sodium Level 138 mmol/L (136-145)
== END | disposition home or self-care (01) ==
LOC: LAB.FUTURE 11:08 → LAB 04-01 05:45
PROVIDERS: PCP Internal Medicine; Referring Provider Internal Medicine Rheumatology; Visit Provider Internal Medicine Rheumatology
DX: L40.59 Other psoriatic arthropathy (principal); E11.9 Type 2 diabetes mellitus without complications; K76.0 Fatty (change of) liver, not elsewhere classified; M50.30 Other cervical disc degeneration, unspecified cervical region; Z79.899 Other long term (current) drug therapy
CPT/HCPCS: 36415; 80053; 85025

== ENCOUNTER → 2022-06-19 | Outpatient (CLI) | payer BC, SELFPAY ==
--- NOTE | 2022-06-19 09:31 | BI_ITS ---
MAMMOGRAPHY - BILATERAL DIAGNOSTIC REASON FOR EXAM: Female, 61 years old. Superficial skin lesion of the right nipple. PERTINENT HISTORY: Sister with breast cancer. Mother with breast cancer. TECHNIQUE: Digital bilateral breast emmanuel (3D mammographic acquisition) in the CC and MLO projections. 2-D mediolateral oblique (MLO) and craniocaudad (CC) views of both breasts were obtained. CAD: Full Field Digital Mammography with Computer Added Detection was performed. COMPARISON: Comparison is made with prior study dated 12/27/2021 and 09/04/2020. FINDINGS: Breast Composition: There are scattered areas of fibroglandular density. There are no dominant masses or suspicious calcifications. Stable small benign-appearing bilateral axillary lymph nodes. No other significant abnormalities are identified. There has been no significant change since the prior study. BI/DIAG MAMM W/CAD, BILAT IMPRESSION: Stable bilateral diagnostic mammogram. One year follow-up recommended. (A) ASSESSMENT CATEGORY: BIRADS Category 2: Benign. A letter regarding these results will be sent to the patient by the facility within 30 days. Approximately 10% of breast cancers are not detected by mammography. A normal mammogram should not delay biopsy of a clinically suspicious abnormality. Electronically Signed: Jordy Masters MD at 10:33 EST ,
== END | disposition home or self-care (01) ==
LOC: OPBI 09:30
PROVIDERS: PCP Internal Medicine; Referring Provider Nurse Practitioner Family; Visit Provider Nurse Practitioner Family
DX: N64.89 Other specified disorders of breast (principal); R92.2 Inconclusive mammogram
CPT/HCPCS: 77062; 77066; G0279

== ENCOUNTER → 2022-07-23 | Outpatient (CLI) | payer BC, SELFPAY ==
[2022-07-23 15:00] LABS: ALB/GLOB Ratio 0.9 RATIO (0.9-2.4); AST(SGOT) 32 U/L (15-37); Alanine Aminotransfer ALT/SGPT 36 U/L (13-56); Albumin, Serum 3.6 g/dL (3.2-5.0); Alkaline Phosphatase 59 U/L (45-117); Anion Gap 8 (5-15); BUN 12 mg/dL (7-18); Calcium,Total 9.5 mg/dL (8.5-10.1); Chloride 105 mmol/L (98-107); Creatinine, Serum 1.09 mg/dL (0.55-1.02); EST Glomerular Filtration Rate 54 mL/min (>60); Est Glom Filt Rate - Afr Amer 65 mL/min (>60); Globulin 3.8 g/dL (2.2-4.2); Glucose 202 mg/dL (74-106); Protein, Total 7.4 g/dL (6.4-8.2); Sodium Level 141 mmol/L (136-145)
[2022-07-23 15:06] LABS: Absolute Lymphocyte Count 2.59 X10^3/uL (0.83-4.51); Absolute Neutrophil Count 5.1 X10^3/uL (2.0-7.7); Basophil# 0.04 X10^3/uL; Basophil% 0.5 % (0-1); Eosinophil# 0.18 X10^3/uL; Eosinophils% 2.1 % (0-5); Hematocrit 38.9 % (37-47); Hemoglobin 12.8 g/dL (12.0-15.0); Lymphocyte # 2.59 X10^3/ul (0.83-4.51); Mean Corp Hgb Conc 32.9 g/dL (32-36); Mean Corpuscular Hgb 30.1 pg (27.0-32.0); Mean Corpuscular Volume 91.5 fL (81-99); Monocyte# 0.68 X10^3/uL; Monocyte% 7.9 % (0-10); NRBC Flagged by Analyzer 0 % (0-5); Platelet Count 245 K/mm3 (150-450); RBC Distribution Width CV 12.5 % (11.6-14.6); RBC Distribution Width SD 41.6 fl (35.1-43.9); Red Blood Count 4.25 M/mm3 (4.2-5.4); White Blood Count 8.6 K/mm3 (4.4-11.0)
== END | disposition home or self-care (01) ==
LOC: MTLAB 10:32
PROVIDERS: PCP Internal Medicine; Referring Provider Internal Medicine Rheumatology; Visit Provider Internal Medicine Rheumatology
DX: L40.59 Other psoriatic arthropathy (principal); E11.9 Type 2 diabetes mellitus without complications; L40.9 Psoriasis, unspecified; K76.0 Fatty (change of) liver, not elsewhere classified; M50.30 Other cervical disc degeneration, unspecified cervical region; G43.909 Migraine, unspecified, not intractable, without status migrainosus; Z79.899 Other long term (current) drug therapy
CPT/HCPCS: 36415; 80053; 85025

== ENCOUNTER → 2022-11-14 | Outpatient (CLI) | payer BC, SELFPAY ==
[2022-11-14 12:26] LABS: Absolute Lymphocyte Count 3.14 X10^3/uL (0.83-4.51); Absolute Neutrophil Count 3.5 X10^3/uL (2.0-7.7); Basophil# 0.05 X10^3/uL; Basophil% 0.7 % (0-1); Eosinophil# 0.15 X10^3/uL; Hematocrit 40.5 % (37-47); Hemoglobin 13.4 g/dL (12.0-15.0); Lymphocyte # 3.14 X10^3/ul (0.83-4.51); Lymphocyte % 41.7 % (19-41); Mean Corp Hgb Conc 33.1 g/dL (32-36); Mean Corpuscular Hgb 30.7 pg (27.0-32.0); Mean Corpuscular Volume 92.7 fL (81-99); Mean Platelet Vol. 9.8 fl (6.2-12.0); Monocyte# 0.65 X10^3/uL; Monocyte% 8.6 % (0-10); NRBC Flagged by Analyzer 0 % (0-5); Neutrophil # 3.51 X10^3/uL (2.7-7.7); Neutrophil % 46.6 % (47-70); Platelet Count 248 K/mm3 (150-450); RBC Distribution Width CV 12.4 % (11.6-14.6); RBC Distribution Width SD 42.5 fl (35.1-43.9); Red Blood Count 4.37 M/mm3 (4.2-5.4); White Blood Count 7.5 K/mm3 (4.4-11.0)
[2022-11-14 12:42] LABS: ALB/GLOB Ratio 0.8 RATIO (0.9-2.4); AST(SGOT) 46 U/L (15-37); Alanine Aminotransfer ALT/SGPT 51 U/L (13-56); Albumin, Serum 3.5 g/dL (3.2-5.0); Alkaline Phosphatase 60 U/L (45-117); Anion Gap 8 (5-15); BUN 15 mg/dL (7-18); BUN/Creat Ratio 13.3 RATIO (10-20); Calcium,Total 9.6 mg/dL (8.5-10.1); Chloride 104 mmol/L (98-107); Creatinine, Serum 1.13 mg/dL (0.55-1.02); EST Glomerular Filtration Rate 52 mL/min (>60); Est Glom Filt Rate - Afr Amer 63 mL/min (>60); Globulin 4.2 g/dL (2.2-4.2); Glucose 175 mg/dL (74-106); Potassium 3.7 mmol/L (3.5-5.1); Protein, Total 7.7 g/dL (6.4-8.2); Sodium Level 139 mmol/L (136-145)
== END | disposition home or self-care (01) ==
PROVIDERS: PCP Internal Medicine; Referring Provider Internal Medicine Rheumatology; Visit Provider Internal Medicine Rheumatology
DX: L40.59 Other psoriatic arthropathy (principal); E11.9 Type 2 diabetes mellitus without complications; K76.0 Fatty (change of) liver, not elsewhere classified; M50.30 Other cervical disc degeneration, unspecified cervical region; G43.909 Migraine, unspecified, not intractable, without status migrainosus; Z79.899 Other long term (current) drug therapy
CPT/HCPCS: 36415; 80053; 85025

== ENCOUNTER → 2023-02-10 | Outpatient (CLI) | payer BC, SELFPAY ==
[2023-02-10 12:23] LABS: Absolute Lymphocyte Count 2.43 X10^3/uL (0.83-4.51); Absolute Neutrophil Count 4.5 X10^3/uL (2.0-7.7); Basophil# 0.02 X10^3/uL; Basophil% 0.3 % (0-1); Eosinophil# 0.26 X10^3/uL; Eosinophils% 3.4 % (0-5); Hematocrit 39.1 % (37-47); Hemoglobin 12.7 g/dL (12.0-15.0); Lymphocyte # 2.43 X10^3/ul (0.83-4.51); Lymphocyte % 31.5 % (19-41); Mean Corp Hgb Conc 32.5 g/dL (32-36); Mean Corpuscular Volume 92.4 fL (81-99); Mean Platelet Vol. 9.4 fl (6.2-12.0); Monocyte# 0.53 X10^3/uL; Monocyte% 6.9 % (0-10); NRBC Flagged by Analyzer 0 % (0-5); Neutrophil # 4.45 X10^3/uL (2.7-7.7); Neutrophil % 57.5 % (47-70); Platelet Count 283 K/mm3 (150-450); RBC Distribution Width CV 12.6 % (11.6-14.6); RBC Distribution Width SD 42.6 fl (35.1-43.9); Red Blood Count 4.23 M/mm3 (4.2-5.4); White Blood Count 7.7 K/mm3 (4.4-11.0)
[2023-02-10 13:19] LABS: ALB/GLOB Ratio 0.9 RATIO (0.9-2.4); AST(SGOT) 35 U/L (15-37); Alanine Aminotransfer ALT/SGPT 42 U/L (13-56); Albumin, Serum 3.6 g/dL (3.2-5.0); Alkaline Phosphatase 65 U/L (45-117); Anion Gap 6 (5-15); BUN 12 mg/dL (7-18); BUN/Creat Ratio 10.4 RATIO (10-20); Calcium,Total 9.3 mg/dL (8.5-10.1); Chloride 107 mmol/L (98-107); Creatinine, Serum 1.15 mg/dL (0.55-1.02); EST Glomerular Filtration Rate 51 mL/min (>60); Est Glom Filt Rate - Afr Amer 61 mL/min (>60); Globulin 3.9 g/dL (2.2-4.2); Glucose 134 mg/dL (74-106); Potassium 3.8 mmol/L (3.5-5.1); Protein, Total 7.5 g/dL (6.4-8.2); Sodium Level 138 mmol/L (136-145)
== END | disposition home or self-care (01) ==
LOC: MTLAB 11:23
PROVIDERS: PCP Internal Medicine; Referring Provider Internal Medicine Rheumatology; Visit Provider Internal Medicine Rheumatology
DX: L40.59 Other psoriatic arthropathy (principal); E11.9 Type 2 diabetes mellitus without complications; K76.0 Fatty (change of) liver, not elsewhere classified; M50.30 Other cervical disc degeneration, unspecified cervical region; G43.909 Migraine, unspecified, not intractable, without status migrainosus; Z79.899 Other long term (current) drug therapy
CPT/HCPCS: 36415; 80053; 85025

== ENCOUNTER → 2023-07-09 | Outpatient (CLI) | payer BC, SELFPAY ==
[2023-07-09 15:02] LABS: Absolute Lymphocyte Count 3.26 X10^3/uL (0.83-4.51); Absolute Neutrophil Count 4.8 X10^3/uL (2.0-7.7); Basophil# 0.05 X10^3/uL; Basophil% 0.6 % (0-1); Eosinophil# 0.08 X10^3/uL; Eosinophils% 0.9 % (0-5); Hemoglobin 13.3 g/dL (12.0-15.0); Lymphocyte # 3.26 X10^3/ul (0.83-4.51); Lymphocyte % 36.6 % (19-41); Mean Corp Hgb Conc 31.7 g/dL (32-36); Mean Corpuscular Hgb 29.5 pg (27.0-32.0); Mean Corpuscular Volume 93.1 fL (81-99); Mean Platelet Vol. 9.7 fl (6.2-12.0); Monocyte# 0.66 X10^3/uL; Monocyte% 7.4 % (0-10); NRBC Flagged by Analyzer 0 % (0-5); Neutrophil # 4.82 X10^3/uL (2.7-7.7); Neutrophil % 54.2 % (47-70); Platelet Count 295 K/mm3 (150-450); RBC Distribution Width CV 12.6 % (11.6-14.6); RBC Distribution Width SD 42.9 fl (35.1-43.9); Red Blood Count 4.51 M/mm3 (4.2-5.4); White Blood Count 8.9 K/mm3 (4.4-11.0)
[2023-07-09 15:26] LABS: ALB/GLOB Ratio 0.8 RATIO (0.9-2.4); AST(SGOT) 46 U/L (15-37); Alanine Aminotransfer ALT/SGPT 49 U/L (13-56); Albumin, Serum 3.5 g/dL (3.2-5.0); Alkaline Phosphatase 69 U/L (45-117); Anion Gap 7 (5-15); BUN 13 mg/dL (7-18); BUN/Creat Ratio 11.2 RATIO (10-20); Calcium,Total 9.5 mg/dL (8.5-10.1); Chloride 102 mmol/L (98-107); Creatinine, Serum 1.16 mg/dL (0.55-1.02); EST Glomerular Filtration Rate 50 mL/min (>60); Est Glom Filt Rate - Afr Amer 61 mL/min (>60); Globulin 4.6 g/dL (2.2-4.2); Glucose 258 mg/dL (74-106); Potassium 3.9 mmol/L (3.5-5.1); Protein, Total 8.1 g/dL (6.4-8.2); Sodium Level 136 mmol/L (136-145)
== END | disposition home or self-care (01) ==
LOC: LAB 13:35
PROVIDERS: PCP Internal Medicine; Visit Provider Internal Medicine Rheumatology
DX: L40.59 Other psoriatic arthropathy (principal); E11.9 Type 2 diabetes mellitus without complications; K76.0 Fatty (change of) liver, not elsewhere classified; M50.30 Other cervical disc degeneration, unspecified cervical region; G43.909 Migraine, unspecified, not intractable, without status migrainosus; Z79.899 Other long term (current) drug therapy
CPT/HCPCS: 36415; 80053; 85025

== ENCOUNTER → 2023-10-11 | Outpatient (CLI) | payer BC, SELFPAY ==
[2023-10-11 08:21] LABS: Absolute Lymphocyte Count 4.07 X10^3/uL (0.83-4.51); Absolute Neutrophil Count 3.5 X10^3/uL (2.0-7.7); Basophil# 0.08 X10^3/uL; Basophil% 0.8 % (0-1); Eosinophil# 1.09 X10^3/uL; Eosinophils% 11.6 % (0-5); Hematocrit 40.9 % (37-47); Lymphocyte # 4.07 X10^3/ul (0.83-4.51); Lymphocyte % 43.2 % (19-41); Mean Corp Hgb Conc 31.8 g/dL (32-36); Mean Corpuscular Hgb 29.7 pg (27.0-32.0); Mean Corpuscular Volume 93.4 fL (81-99); Mean Platelet Vol. 10.1 fl (6.2-12.0); Monocyte% 7.4 % (0-10); NRBC Flagged by Analyzer 0 % (0-5); Neutrophil # 3.45 X10^3/uL (2.7-7.7); Neutrophil % 36.6 % (47-70); Platelet Count 270 K/mm3 (150-450); RBC Distribution Width CV 12.7 % (11.6-14.6); RBC Distribution Width SD 43.8 fl (35.1-43.9); Red Blood Count 4.38 M/mm3 (4.2-5.4); White Blood Count 9.4 K/mm3 (4.4-11.0)
[2023-10-11 08:39] LABS: ALB/GLOB Ratio 0.8 RATIO (0.9-2.4); AST(SGOT) 61 U/L (15-37); Alanine Aminotransfer ALT/SGPT 57 U/L (13-56); Albumin, Serum 3.3 g/dL (3.2-5.0); Alkaline Phosphatase 69 U/L (45-117); Anion Gap 3 (5-15); BUN 11 mg/dL (7-18); BUN/Creat Ratio 10.4 RATIO (10-20); Calcium,Total 9.2 mg/dL (8.5-10.1); Chloride 109 mmol/L (98-107); Creatinine, Serum 1.06 mg/dL (0.55-1.02); EST Glomerular Filtration Rate 56 mL/min (>60); Est Glom Filt Rate - Afr Amer 67 mL/min (>60); Globulin 4.1 g/dL (2.2-4.2); Glucose 144 mg/dL (74-106); Potassium 3.8 mmol/L (3.5-5.1); Protein, Total 7.4 g/dL (6.4-8.2); Sodium Level 139 mmol/L (136-145)
== END | disposition home or self-care (01) ==
LOC: LAB 06:59
PROVIDERS: PCP Internal Medicine; Referring Provider Internal Medicine Rheumatology; Visit Provider Internal Medicine Rheumatology
DX: L40.59 Other psoriatic arthropathy (principal); Z79.899 Other long term (current) drug therapy
CPT/HCPCS: 36415; 80053; 85025

== ENCOUNTER → 2023-12-30 | Outpatient (CLI) | payer BC, SELFPAY ==
--- NOTE | 2023-12-30 12:41 | BI_ITS ---
MAMMOGRAPHY - BILATERAL SCREENING 3-D TOMOSYNTHESIS REASON FOR EXAM: Female, 63 years old. screening PERTINENT HISTORY: No significant family history. TECHNIQUE: 2-D mammograms and 3-D Tomosynthesis of the breast (s) were performed. CAD was performed. COMPARISON: 12/27/2021 FINDINGS: The breast composition is composed of scattered fibroglandular density. Scattered benign calcifications are seen. No dense spiculated masses or suspicious microcalcifications are identified. No architectural distortion is identified. There is no skin thickening or retraction. There has been no significant change since the prior study. BI/SCRN MAMM (CAD)W/ELAINE BILAT IMPRESSION: No mammographic signs of malignancy. Routine yearly mammograms recommended. ASSESSMENT CATEGORY: BIRADS Category 1: Negative. A letter regarding these results will be sent to the patient by the facility within 30 days. FOLLOW UP RECOMMENDATION: Yearly follow up mammogram recommended. (A) Approximately 10% of breast cancers are not detected by mammography. A normal mammogram should not delay biopsy of a clinically suspicious abnormality. Electronically Signed: Gage Simmons MD at 9:40 EDT ,
--- NOTE | 2023-12-30 12:45 | BD_ITS ---
STUDY: DUAL ENERGY X-RAY ABSORPTIOMETRY / DXA REASON FOR EXAM: Female, 63 years old. Z780 TECHNIQUE: Bone Mineral Density (BMD) measurements of lumbar spine and bilateral hips were obtained. COMPARISON: Comparison is made with prior study dated December 27, 2021. FINDINGS: Lumbar Spine (L1-L4): g/cm2 (1.108) / T-score (0.6) / Z-score (2.3) Findings are suggestive of normal bone density with a low fracture risk. Left Femur Total: g/cm2 (0.997) / T-score (0.4) / Z-score (1.6) Left Femoral Neck: g/cm2 (0.810) / T-score (-0.4) / Z-score (1.1) Right Femur Total: g/cm2 (0.875) / T-score (-0.5) / Z-score (0.6) Right Femoral Neck: g/cm2 (0.731) / T-score (-1.1) / Z-score (0.4) The T-Scores on the most recent prior examination were: Lumbar Spine (L1-L4): There has been improvement of bone density since the previous examination. Left Femur Total: which represents an improvement of 6.4%. Right Femur Total: which represents a worsening of 2.2%. BD/Dexa Bone Density Study IMPRESSION: The patient is considered osteopenic as outlined below according to World Yon Organization (WHO) criteria with a low fracture risk. There has been improvement of bone density since the previous examination. Reference Information: The T-score is the number of standard deviations above or below the standard which is normal for young adults at their peak bone mineral density. The World Health Organization (WHO) interprets the T-scores as follows: Above -1 Normal bone density Between -1 and -2.5 Osteopenia Equal to / or below -2.5 Osteoporosis As a practical clinical guideline, osteopenia may be graded as follows: Mild -1 through -1.5 Moderate -1.6 through -2.0 Severe -2.1 through -2.4 The Z-score is the number of standard deviations above or below age-matched controls. A Z-score of less than -1.5 would be considered abnormal. References: 1. NIH Osteoporosis and Related Bone Diseases www osteo.org 2. International Society for Clinical Densitometry www iscd.org 3. National Osteoporosis Foundation www nof.org Electronically Signed: Jordy Masters MD at 9:07 EDT ,
== END | disposition home or self-care (01) ==
LOC: OPBD 12:39
PROVIDERS: PCP Internal Medicine; Referring Provider Internal Medicine; Visit Provider Internal Medicine
DX: Z12.31 Encounter for screening mammogram for malignant neoplasm of breast (principal); Z78.0 Asymptomatic menopausal state
CPT/HCPCS: 77063; 77067; 77080

== ENCOUNTER → 2024-03-25 | Outpatient (CLI) | payer BC, SELFPAY ==
[2024-03-25 12:25] LABS: Absolute Lymphocyte Count 3.06 X10^3/uL (0.83-4.51); Basophil# 0.04 X10^3/uL; Basophil% 0.6 % (0-1); Eosinophils% 2.9 % (0-5); Hematocrit 39.3 % (37-47); Lymphocyte # 3.06 X10^3/ul (0.83-4.51); Lymphocyte % 44.3 % (19-41); Mean Corp Hgb Conc 33.1 g/dL (32-36); Mean Corpuscular Hgb 30.7 pg (27.0-32.0); Mean Corpuscular Volume 92.7 fL (81-99); Mean Platelet Vol. 9.5 fl (6.2-12.0); Monocyte# 0.56 X10^3/uL; Monocyte% 8.1 % (0-10); NRBC Flagged by Analyzer 0 % (0-5); Neutrophil # 3.01 X10^3/uL (2.7-7.7); Neutrophil % 43.7 % (47-70); Platelet Count 235 K/mm3 (150-450); RBC Distribution Width CV 12.5 % (11.6-14.6); RBC Distribution Width SD 42.5 fl (35.1-43.9); Red Blood Count 4.24 M/mm3 (4.2-5.4); White Blood Count 6.9 K/mm3 (4.4-11.0)
[2024-03-25 13:01] LABS: ALB/GLOB Ratio 0.8 RATIO (0.9-2.4); AST(SGOT) 63 U/L (15-37); Alanine Aminotransfer ALT/SGPT 70 U/L (13-56); Albumin, Serum 3.3 g/dL (3.2-5.0); Alkaline Phosphatase 66 U/L (45-117); Anion Gap 7 (5-15); BUN 12 mg/dL (7-18); BUN/Creat Ratio 11.1 RATIO (10-20); Calcium,Total 9.5 mg/dL (8.5-10.1); Chloride 102 mmol/L (98-107); Creatinine, Serum 1.08 mg/dL (0.55-1.02); EST Glomerular Filtration Rate 54 mL/min (>60); Est Glom Filt Rate - Afr Amer 66 mL/min (>60); Globulin 4.3 g/dL (2.2-4.2); Glucose 255 mg/dL (74-106); Potassium 4.4 mmol/L (3.5-5.1); Protein, Total 7.6 g/dL (6.4-8.2); Sodium Level 137 mmol/L (136-145)
== END | disposition home or self-care (01) ==
LOC: LAB 12:03
PROVIDERS: PCP Internal Medicine; Referring Provider Internal Medicine Rheumatology; Visit Provider Internal Medicine Rheumatology
DX: L40.59 Other psoriatic arthropathy (principal); Z79.899 Other long term (current) drug therapy
CPT/HCPCS: 36415; 80053; 85025

== ENCOUNTER → 2024-07-23 | Outpatient (CLI) | payer BC, SELFPAY ==
[2024-07-23 13:44] LABS: Absolute Lymphocyte Count 3.07 X10^3/uL (0.83-4.51); Absolute Neutrophil Count 3.6 X10^3/uL (2.0-7.7); Basophil# 0.05 X10^3/uL; Basophil% 0.7 % (0-1); Eosinophil# 0.14 X10^3/uL; Eosinophils% 1.9 % (0-5); Hematocrit 41.7 % (37-47); Hemoglobin 13.6 g/dL (12.0-15.0); Lymphocyte # 3.07 X10^3/ul (0.83-4.51); Lymphocyte % 40.9 % (19-41); Mean Corp Hgb Conc 32.6 g/dL (32-36); Mean Corpuscular Hgb 30.3 pg (27.0-32.0); Mean Corpuscular Volume 92.9 fL (81-99); Monocyte# 0.59 X10^3/uL; Monocyte% 7.9 % (0-10); NRBC Flagged by Analyzer 0 % (0-5); Neutrophil # 3.63 X10^3/uL (2.7-7.7); Neutrophil % 48.3 % (47-70); Platelet Count 235 K/mm3 (150-450); RBC Distribution Width CV 12.2 % (11.6-14.6); RBC Distribution Width SD 41.7 fl (35.1-43.9); Red Blood Count 4.49 M/mm3 (4.2-5.4); White Blood Count 7.5 K/mm3 (4.4-11.0)
[2024-07-23 14:10] LABS: ALB/GLOB Ratio 0.7 RATIO (0.9-2.4); AST(SGOT) 90 U/L (15-37); Alanine Aminotransfer ALT/SGPT 91 U/L (13-56); Albumin, Serum 3.3 g/dL (3.2-5.0); Alkaline Phosphatase 69 U/L (45-117); Anion Gap 6 (5-15); BUN 14 mg/dL (7-18); BUN/Creat Ratio 12.7 RATIO (10-20); Calcium,Total 9.8 mg/dL (8.5-10.1); Chloride 103 mmol/L (98-107); EST Glomerular Filtration Rate 53 mL/min (>60); Est Glom Filt Rate - Afr Amer 64 mL/min (>60); Globulin 4.5 g/dL (2.2-4.2); Glucose 280 mg/dL (74-106); Potassium 4.3 mmol/L (3.5-5.1); Protein, Total 7.8 g/dL (6.4-8.2); Sodium Level 137 mmol/L (136-145)
== END | disposition home or self-care (01) ==
LOC: LAB 12:07
PROVIDERS: PCP Internal Medicine; Referring Provider Internal Medicine Rheumatology; Visit Provider Internal Medicine Rheumatology
DX: L40.59 Other psoriatic arthropathy (principal); Z79.899 Other long term (current) drug therapy
CPT/HCPCS: 36415; 80053; 85025

== ENCOUNTER → 2024-08-23 | Outpatient (CLI) | payer BC, SELFPAY ==
--- NOTE | 2024-08-23 09:14 | US_ITS ---
STUDY: ABDOMINAL ULTRASOUND - RIGHT UPPER QUADRANT; ELASTOGRAPHY REASON FOR VISIT: Female, 63 years old. Fatty infiltration of the liver. TECHNIQUE: Ultrasound evaluation of the right upper quadrant was performed with real-time and static mabry-scale imaging. Point quantification shear wave elastography was performed ([employer]). TECHNICAL QUALITY: Adequate. COMPARISON: Comparison is made with prior study dated April 07, 2015. FINDINGS: Liver: The liver measures 17.9 cm. There is increased echogenicity consistent with fatty infiltration. The bile ducts are within normal limits. There is hepatic color flow. The direction of portal flow is hepatopetal. There is no demonstrated mass lesion. Median liver stiffness measured 7.3 kPa. Gallbladder: The patient is status post cholecystectomy. Common Bile Duct (C.B.D.): The common bile duct measures 3 mm. Pancreas: There is normal echogenicity of the visualized pancreas. There is no demonstrated pancreatic mass or cyst. Right Kidney: Normal size of the right kidney. The right kidney measures 11.6 cm x 5.1 cm x 4.3 cm. Normal renal cortex. The right cortex measures 1.7 cm. There is no demonstrated renal mass or cyst. There is no right hydronephrosis. US/Abdomen Limited IMPRESSION: 1. Liver stiffness measures 7.3 kPa compatible with F2-F3 (Mild to moderate liver fibrosis) Metavir score. 2. Status post cholecystectomy. 3. Fatty infiltration of the liver. Electronically Signed: Jordy Masters MD at 15:06 EST ,
== END | disposition home or self-care (01) ==
LOC: US 09:12
PROVIDERS: PCP Internal Medicine; Referring Provider Internal Medicine; Visit Provider Internal Medicine
DX: K76.0 Fatty (change of) liver, not elsewhere classified (principal)
CPT/HCPCS: 76705

== ENCOUNTER → 2024-11-05 | Outpatient (CLI) | payer BC, SELFPAY ==
[2024-11-05 14:17] LABS: Absolute Lymphocyte Count 2.84 X10^3/uL (0.83-4.51); Absolute Neutrophil Count 4.6 X10^3/uL (2.0-7.7); Basophil# 0.05 X10^3/uL; Basophil% 0.6 % (0-1); Eosinophils% 1.2 % (0-5); Hematocrit 39.6 % (37-47); Hemoglobin 13.4 g/dL (12.0-15.0); Lymphocyte # 2.84 X10^3/ul (0.83-4.51); Mean Corp Hgb Conc 33.8 g/dL (32-36); Mean Corpuscular Hgb 30.9 pg (27.0-32.0); Mean Corpuscular Volume 91.2 fL (81-99); Monocyte# 0.51 X10^3/uL; Monocyte% 6.3 % (0-10); NRBC Flagged by Analyzer 0 % (0-5); Neutrophil # 4.58 X10^3/uL (2.7-7.7); Neutrophil % 56.5 % (47-70); Platelet Count 249 K/mm3 (150-450); RBC Distribution Width SD 40.5 fl (35.1-43.9); Red Blood Count 4.34 M/mm3 (4.2-5.4); White Blood Count 8.1 K/mm3 (4.4-11.0)
[2024-11-05 16:12] LABS: ALB/GLOB Ratio 1.3 RATIO (0.9-2.4); AST(SGOT) 66 U/L (<=31); Alanine Aminotransfer ALT/SGPT 59 U/L (<=34); Albumin, Serum 4.2 g/dL (3.4-4.8); Alkaline Phosphatase 69 U/L (35-104); Anion Gap 15 (5-15); BUN 13 mg/dL (4-19); BUN/Creat Ratio 10.2 RATIO (10-20); Calcium,Total 9.9 mg/dL (7.6-11.0); Carbon Dioxide 21.4 mmol/L (21.0-32.0); Chloride 101 mmol/L (98-108); Creatinine, Serum 1.26 mg/dL (0.70-1.20); EST Glomerular Filtration Rate 48 (>60); Globulin 3.3 g/dL (2.2-4.2); Glucose 274 mg/dL (70-99); Potassium 4.1 mmol/L (3.3-5.1); Protein, Total 7.4 g/dL (5.9-8.4); Sodium Level 137 mmol/L (133-145); Total Bilirubin 0.42 mg/dL (0.00-1.30)
[2024-11-09 13:08] LABS: QNTFERON TB Mitogen Value > 10.00 IU/mL (.); QNTFERON TB Nil Value 0.04 IU/mL (.); QNTFERON TB1+ Ag Value 0.12 IU/mL (.); QNTFERON TB2+ Ag Value 0.11 IU/mL (.); QNTIFERON TB Positive Criteria Negative (Negative)
== END | disposition home or self-care (01) ==
LOC: LAB 13:13
PROVIDERS: PCP Internal Medicine; Referring Provider Internal Medicine Rheumatology; Visit Provider Internal Medicine Rheumatology
DX: L40.59 Other psoriatic arthropathy (principal); Z79.899 Other long term (current) drug therapy
CPT/HCPCS: 36415; 80053; 85025; 86480

== ENCOUNTER → 2025-01-14 | Outpatient (CLI) | payer MEDICARE, OTHER, SELFPAY ==
--- NOTE | 2025-01-14 14:28 | BI_ITS ---
EXAM: SCRN MAMM (CAD)W/ELAINE BILAT 01/14/2025 CLINICAL HISTORY: F, Age 64 y/o , POSTMENOPAUSAL SCREENING TECHNIQUE: Bilateral screening digital breast tomosynthesis with 2D and 3D images. Computer aided detection. COMPARISON: Prior exam(s) dated 12/30/2023, 06/19/2022, 09/04/2020. FINDINGS: TISSUE DENSITY: The breast tissue is composed of scattered area of fibroglandular density. Bilateral Breast Mammographic Findings: No significant masses, calcifications or other abnormalities are identified. BI/SCRN MAMM (CAD)W/ELAINE BILAT IMPRESSION: Right Breast: BIRADS 1 NEGATIVE. Left Breast: BIRADS 1 NEGATIVE. OVERALL FINAL ASSESSMENT: BIRADS 1 NEGATIVE. RECOMMENDATION: Routine annual follow-up in 1 Year A letter with findings and recommendations will be mailed to the patient. Reading Location: [id number]
== END | disposition home or self-care (01) ==
LOC: OPBI 14:26
PROVIDERS: PCP Internal Medicine; Referring Provider Internal Medicine; Visit Provider Internal Medicine
DX: Z12.31 Encounter for screening mammogram for malignant neoplasm of breast (principal)
CPT/HCPCS: 77063; 77067

== ENCOUNTER → 2025-03-04 | Outpatient (CLI) | payer MEDICARE, OTHER, SELFPAY ==
[2025-03-04 15:10] LABS: Hematocrit 40.4 % (37-47); Hemoglobin 13.2 g/dL (12.0-15.0); Immature Granulocytes Count 0.020 X10^3/uL (0.0-0.0); Mean Corp Hgb Conc 32.7 g/dL (32-36); Mean Corpuscular Volume 93.5 fL (81-99); Mean Platelet Vol. 10.0 fl (6.2-12.0); NRBC Flagged by Analyzer 0 % (0-5); Platelet Count 270 K/mm3 (150-450); RBC Distribution Width CV 12.4 % (11.6-14.6); RBC Distribution Width SD 42.7 fl (35.1-43.9); Red Blood Count 4.32 M/mm3 (4.2-5.4); White Blood Count 7.8 K/mm3 (4.4-11.0)
[2025-03-04 16:05] LABS: AST(SGOT) 53 U/L (<=31); Alanine Aminotransfer ALT/SGPT 48 U/L (<=34); Albumin, Serum 4.2 g/dL (3.4-4.8); Alkaline Phosphatase 68 U/L (35-104); Anion Gap 13 (5-15); BUN 14 mg/dL (4-19); BUN/Creat Ratio 12.3 RATIO (10-20); Calcium,Total 9.8 mg/dL (7.6-11.0); Carbon Dioxide 24.1 mmol/L (21.0-32.0); Chloride 102 mmol/L (98-108); Globulin 3.6 g/dL (2.2-4.2); Glucose 268 mg/dL (70-99); Potassium 4.2 mmol/L (3.3-5.1)
== END | disposition home or self-care (01) ==
LOC: MTLAB 13:49
PROVIDERS: PCP Internal Medicine; Referring Provider Internal Medicine Rheumatology; Visit Provider Internal Medicine Rheumatology
DX: L40.59 Other psoriatic arthropathy (principal); Z79.899 Other long term (current) drug therapy
CPT/HCPCS: 36415; 80053; 85025

== ENCOUNTER → 2025-06-22 | Outpatient (CLI) | payer MEDICARE, OTHER, SELFPAY ==
[2025-06-22 10:53] LABS: Hematocrit 40.6 % (37-47); Hemoglobin 13.3 g/dL (12.0-15.0); Immature Granulocytes Count 0.020 X10^3/uL (0.0-0.0); Mean Corp Hgb Conc 32.8 g/dL (32-36); Mean Corpuscular Volume 92.5 fL (81-99); Mean Platelet Vol. 9.4 fl (6.2-12.0); NRBC Flagged by Analyzer 0 % (0-5); Platelet Count 252 K/mm3 (150-450); RBC Distribution Width CV 12.4 % (11.6-14.6); RBC Distribution Width SD 42.1 fl (35.1-43.9); Red Blood Count 4.39 M/mm3 (4.2-5.4); White Blood Count 8.4 K/mm3 (4.4-11.0)
[2025-06-22 11:29] LABS: AST(SGOT) 60 U/L (<=31); Alanine Aminotransfer ALT/SGPT 54 U/L (<=34); Albumin, Serum 4.2 g/dL (3.4-4.8); Alkaline Phosphatase 67 U/L (35-104); Anion Gap 10 (5-15); BUN 14 mg/dL (4-19); BUN/Creat Ratio 13.8 RATIO (10-20); Calcium,Total 9.8 mg/dL (7.6-11.0); Carbon Dioxide 27.6 mmol/L (21.0-32.0); Chloride 101 mmol/L (98-108); Globulin 3.7 g/dL (2.2-4.2); Glucose 210 mg/dL (70-99); Potassium 4.5 mmol/L (3.3-5.1)
== END | disposition home or self-care (01) ==
LOC: LAB 10:27
PROVIDERS: PCP Internal Medicine; Referring Provider Internal Medicine Rheumatology; Visit Provider Internal Medicine Rheumatology
DX: L40.59 Other psoriatic arthropathy (principal); Z79.899 Other long term (current) drug therapy
CPT/HCPCS: 36415; 80053; 85025